=== PATIENT | female | born 1960 | race Caucasian/White ===

== ENCOUNTER 2023-07-29 10:55 | Inpatient (IN) ==
--- NOTE | 2023-07-29 11:20 | XRay Report ---
XR chest 1V portable HISTORY: weakness COMPARISON: None. FINDINGS: There are low lung volumes. No pneumothorax. No pleural effusions. The cardiac silhouette i s mildly enlarged. No evidence for pulmonary edema. Left basilar densities favor subsegmental atelect asis or scarring. Otherwise, no focal lung consolidations to suggest. No evidence for pulmonary edema . No acute fractures identified. IMPRESSION: Mild cardiomegaly. Otherwise, no acute process within the chest. ACT 112: Negative or not required by law. Electronically signed by: Giuliano Loera M.D. 07/29/2023 11:18 AM
--- NOTE | 2023-07-29 11:25 | Emergency Department Note ---
Impression & Plan Weakness, Non-ST elevation IN (NSTEMI), Hyperglycemia, Hypertension ED Provider Note HISTORY OF PRESENT ILLNESS: Patient is a 63-year-old female presenting with left-sided headache and weakness. Patient reports that she woke up today and had a left-sided headache. Reports that she felt very weak and unsteady. Denies any changes in vision. Denies any numbness or tingling or weakness in her extremities. She reports that she was on balance this morning and fell, landing on her buttocks. Denies any low back pain or tailbone pain. She denies any recent fevers. Denies any chest pain or shortness of breath. Denies any nausea or vomiting. Denies any recent sick contact exposures. ROS: as above PHYSICAL EXAM: Constitutional: Patient appears in no acute distress. HENT: Head: Normocephalic and atraumatic. Eyes: EOMI, PERRL Mouth/Throat: Mucous membranes moist. Neck: Trachea midline. Neck supple. Cardiovascular: RRR, No murmurs, rubs or gallops. Intact distal pulses. Pulmonary/Chest: No respiratory distress. Breath sounds clear and equal bilaterally. No wheezes or rales. Abdominal: Abdomen soft, no tenderness, rebound or guarding. Musculoskeletal: No edema, tenderness or deformity noted. Skin: Warm and dry. No rash, erythema, pallor or cyanosis Psychiatric: Appropriate mood and affect for situation. Neurological: Alert and keenly responsive. CN II-XII grossly intact, moving all extremities equally and fully. MDM: - Vitals signs showed hypertension. - History obtained via patient. Patient presents with left-sided headache and weakness. Patient reports she woke up today and had a left-sided headache. She reports she felt very weak and unsteady. She denies any changes in vision. Denies any head injuries. Reports she fell this morning but landed on her buttocks. Denies striking her head. Reports no chest pain or shortness of breath. - Chronic conditions affecting care: HTN; DM-2 - Differential diagnoses include, but are not limited to: ACS; dysrhythmia; electrolyte abnormality; UTI; pneumonia; CVA; intracranial hemorrhage - Order placed for continuous cardiac monitoring. At this time, monitor showed rate of 70 bpm with normal sinus rhythm, per my interpretation. - External medical records reviewed. - EKG interpreted by myself showed normal sinus rhythm. Rate 69 bpm. QT 422. No acute ischemic changes. - Laboratory workup interpreted by myself showed slight leukocytosis (WBC 12.29); pseudohyponatremia (glucose 130 - but WNL when corrected for hyperglycemia); elevated creatinine (Cr 1.29 - unknown baseline in our system); hyperglycemia (glucose 574); elevated troponin (96.8); normal TSH - Viral respiratory panel positive for coronavirus type 229E - CXR negative for pneumonia, per my interpretation. - CT head wo contrast negative for acute pathology - VBG shows slight acidosis (pH 7.34) - Patient given 1g IV tylenol on arrival to the ER and 10 mg of IV hydralazine for blood pressure control. Patient's systolic blood pressure minimally improved. She was given 1L NS and 5 units IV insulin for hyperglycemia. Repeat FSBG still >400. Given an additional 10 units IV insulin. Pressures still elevated and given an additional 10 mg of IV hydralazine. - Discussion was had with pet care associate about patient's case and need for admission - Hospitalist consulted for admission - [facility] ASSESSMENT AND PLAN: Diagnosis: weakness; NSTEMI; hypertension; hyperglycemia Plan: admit Past Med/Surg History Social History Smoking Status: Unknown if ever smoked Preferred Language: Divehi Feels Safe at Home: Yes Gender Identity: Female Home Meds Home Medications Medication Instructions Recorded Confirmed Levemir FlexPen 48 unit AMPM 07/29/23 07/29/23 Trulicity See Rx Instructions .Route .COMPLEX 07/29/23 07/29/23 amlodipine 10 mg tablet 10 mg PO DAILY 07/29/23 07/29/23 aspirin 325 mg tablet 325 mg PO DAILY 07/29/23 07/29/23 escitalopram oxalate 20 mg tablet 20 mg PO DAILY 07/29/23 07/29/23 hydralazine 100 mg tablet 100 mg PO BID 07/29/23 07/29/23 lisinopril 2.5 mg tablet 2.5 mg PO DAILY 07/29/23 07/29/23 metformin 500 mg tablet 500 mg PO BID 07/29/23 07/29/23 metoprolol succinate 100 mg 100 mg PO QAM 07/29/23 07/29/23 tablet,extended release 24 hr rosuvastatin 10 mg tablet 10 mg PO DAILY 07/29/23 07/29/23 sildenafil (pulm.hypertension) 20 20 mg PO TID 07/29/23 07/29/23 mg tablet spironolactone 25 mg tablet 25 mg PO DAILY 07/29/23 07/29/23 torsemide 20 mg tablet 20 mg PO DAILY 07/29/23 07/29/23 Results & Data (ED) Vital Signs Vital Signs - 24 hr 07/29/23 10:30 07/29/23 10:30 07/29/23 10:59 Temperature 36.7 C Temperature Source Oral Pulse Rate 68 Pulse Rate [Apical] Respiratory Rate 18 Respiratory Effort / Characteristics Non-Labored Respiratory Depth Normal Blood Pressure 226/94 H Blood Pressure [Left Arm] Blood Pressure Mean 138 Blood Pressure Mean [Left Arm] Pulse Oximetry 91 92 92 Oxygen Delivery Method Room Air Room Air Room Air Sepsis Recent Fever Within 48 Hours No Sepsis New/Unexplained Change in Mental Status No Sepsis Action Taken by Nursing No Action Required 07/29/23 12:28 Temperature Temperature Source Pulse Rate Pulse Rate [Apical] 69 Respiratory Rate 15 Respiratory Effort / Characteristics Respiratory Depth Blood Pressure Blood Pressure [Left Arm] 209/90 H Blood Pressure Mean Blood Pressure Mean [Left Arm] 129 Pulse Oximetry 93 Oxygen Delivery Method Room Air Sepsis Recent Fever Within 48 Hours Sepsis New/Unexplained Change in Mental Status Sepsis Action Taken by Nursing Laboratory Data 07/29/23 11:30 07/29/23 11:30 Lab Results 07/29/23 07/29/23 07/29/23 Range/Units 11:30 12:00 14:07 WBC 12.29 H (4.8-10.8) K/ul RBC 5.39 (4.20-5.40) M/uL Hgb 14.5 (12.0-16.0) g/dl Hct 43.6 (37.0-47.0) % MCV 80.9 (80.0-100.0) fL MCH 26.9 (25.0-34.0) pg MCHC 33.3 (32.0-36.0) g/dL RDW Std Deviation 37.5 (36.4-46.3) fL RDW Coeff of Sven 13.0 (11.5-14.5) % Plt Count 341 (130-400) K/uL MPV 9.8 (9.4-12.4) fL Immature Gran % (Auto) 0.7 % Neut % (Auto) 83.8 % Lymph % (Auto) 10.1 % [place] % (Auto) 3.9 % Eos % (Auto) 1.0 % Baso % (Auto) 0.5 % Neut # (Auto) 10.31 H (1.40-6.50) K/uL Lymph # (Auto) 1.24 (1.20-3.40) K/uL [place] # (Auto) 0.48 (0.11-0.59) K/uL Eos # (Auto) 0.12 (0.00-0.50) K/uL Baso # (Auto) 0.06 (0.00-0.20) K/uL Immature Gran # (Auto) 0.08 (0.01-0.20) K/uL VBG pH 7.34 L (7.36-7.41) VBG pCO2 50 (38-50) mmHg VBG pO2 30 mmHg VBG HCO3 27 mmol/L VBG O2 Saturation < 60.0 % VBG Base Excess 0.5 mEq/L Sodium 130 L (136-145) mmol/L Potassium 4.5 (3.5-5.1) mmol/L Chloride 96 L (98-107) mmol/L Carbon Dioxide 24 (21-32) mmol/L Anion Gap 10 (3-11) BUN 30 H (6-23) mg/dl Creatinine 1.29 H (0.6-1.2) mg/dl Est Cr Clr Drug Dosing 50.9 ml/min Est GFR ( Amer) 50.3 ml/min Est GFR (Non-Af Amer) 43.4 ml/min BUN/Creatinine Ratio 23.3 H (10-20) Glucose 574 H* (70-99(Fasting)) mg/dl POC Glucose 471 H* (70-99) mg/dl Lactate 1.5 (0.4-2.0) mmol/L Calcium 9.5 (8.6-10.3) mg/dl Magnesium 2.3 (1.7-2.4) mg/dl Total Bilirubin 0.5 (0.2-1.0) mg/dl AST 14 (13-39) U/L ALT 15 (7-52) U/L Alkaline Phosphatase 120 H (34-104) U/L Troponin I High Sens 96.8 H* (0-14) pg/ml Total Protein 7.6 (6.0-8.3) gm/dl Albumin 3.3 L (3.4-5.0) gm/dl Globulin 4.3 H (2.5-4.0) gm/dl Albumin/Globulin Ratio 0.8 L (0.9-2) TSH 2.222 (0.300-4.500) uIu/ml Adenovirus (PCR) Not Detected (NotDetected) B. pertussis DNA (PCR) Not Detected (NotDetected) B.parapertussis DNA PCR Not Detected (NotDetected) C. pneumoniae DNA (PCR) Not Detected (NotDetected) Coronavirus OC43 (PCR) Not Detected (NotDetected) Coronavirus HKU1 (PCR) Not Detected (NotDetected) Coronavirus 229E (PCR) DETECTED A (NotDetected) SARS-CoV-2 (PCR) Not Detected (NotDetected) Coronavirus NL63 (PCR) Not Detected (NotDetected) Human Metapneumovir PCR Not Detected (NotDetected) Influenza Type A (PCR) Not Detected (NotDetected) Influenza Type B (PCR) Not Detected (NotDetected) M. pneumoniae (PCR) Not Detected (NotDetected) Parainfluenza 1 (PCR) Not Detected (NotDetected) Parainfluenza 2 (PCR) Not Detected (NotDetected) Parainfluenza 3 (PCR) Not Detected (NotDetected) Parainfluenza 4 (PCR) Not Detected (NotDetected) RSV (PCR) Not Detected (NotDetected) Entero/Rhino (PCR) Not Detected (NotDetected) Administered Medications Discontinued Medications Hydralazine HCl (Hydralazine Hcl 20 Mg/Ml Vial) 10 mg IV NOW STA Stop: 07/29/23 12:24 Last Admin: 07/29/23 12:29 Dose: 10 mg Documented By: ML Hydralazine HCl (Hydralazine Hcl 20 Mg/Ml Vial) 10 mg IV NOW STA Stop: 07/29/23 14:38 Last Admin: 07/29/23 14:43 Dose: 10 mg Documented By: MISA Acetaminophen (Ofirmev) 1,000 mg in 100 mls @ 400 mls/hr IV NOW STA Stop: 07/29/23 11:39 Last Infusion: 07/29/23 12:00 Dose: Infused Documented By: Admin: 07/29/23 11:42 Dose: 400 mls/hr Documented By: MISA Sodium Chloride (Nss) 1,000 mls @ 999 mls/hr IV .Q1H1M ONE Stop: 07/29/23 13:28 Last Admin: 07/29/23 12:32 Dose: 999 mls/hr Documented By: LINH Insulin Human Regular (Novolin-R Insulin Per Unit Charge) 5 units IV NOW STA Stop: 07/29/23 12:29 Last Admin: 07/29/23 12:36 Dose: 5 units Documented By: LINH Co-signed By: FRANK Insulin Human Regular (Novolin-R Insulin Per Unit Charge) 10 units IV NOW STA Stop: 07/29/23 14:10 Last Admin: 07/29/23 14:19 Dose: 10 units Documented By: MISA Co-signed By: LINH Imaging Data Radiologist's Impression: Chest X-Ray 07/29/23 10:59 XR chest 1V portable HISTORY: weakness COMPARISON: None. FINDINGS: There are low lung volumes. No pneumothorax. No pleural effusions. The cardiac silhouette is mildly enlarged. No evidence for pulmonary edema. Left basilar densities favor subsegmental atelectasis or scarring. Otherwise, no focal lung consolidations to suggest. No evidence for pulmonary edema. No acute fractures identified. IMPRESSION: Mild cardiomegaly. Otherwise, no acute process within the chest. ACT 112: Negative or not required by law. Electronically signed by: Giuliano Loera M.D. 07/29/2023 11:[address] 07/29/23 11:[address] DOSE: 625.8 mGy.cm HISTORY: L sided headache; weakness TECHNIQUE: Multiaxial CT images of the head were performed without the use of intravenous contrast. Automated exposure control was utilized for this study. A dose lowering technique was utilized adhering to the principles of ALARA. Comparison: None. Findings: Mild mucosal thickening within the ethmoid air cells and left maxillary sinus. Trace fluid level within the right maxillary sinus. The mastoid air cells are clear. The calvarium and skull base are intact. The ventricles and sulci are within normal limits. There is no mass, hematoma, midline shift, or acute infarct. Impression: No acute intracranial abnormality. ACT 112: Negative or not required by law. Electronically signed by: Giuliano Loera M.D. 07/29/2023 1:04 PM Discharge Plan Visit Data Chief Complaint: Weakness ED Provider: Susan Arce Discharge Problem: Weakness, Non-ST elevation IN (NSTEMI), Hyperglycemia, Hypertension Forms Stand Alone Forms: My [facility] Prescriptions Prescriptions: No Action metformin 500 mg Tablet 500 mg PO BID torsemide 20 mg Tablet 20 mg PO DAILY aspirin 325 mg Tablet 325 mg PO DAILY metoprolol succinate 100 mg Tablet Extended Release 24 Hr 100 mg PO QAM spironolactone 25 mg Tablet 25 mg PO DAILY amlodipine 10 mg Tablet 10 mg PO DAILY hydralazine 100 mg Tablet 100 mg PO BID lisinopril 2.5 mg tablet 2.5 mg PO DAILY escitalopram oxalate 20 mg Tablet 20 mg PO DAILY rosuvastatin 10 mg Tablet 10 mg PO DAILY sildenafil (pulm.hypertension) 20 mg Tablet 20 mg PO TID Levemir FlexPen 48 unit AMPM Rx Instructions: per son she does 48 units bid. depending on her sugar Trulicity See Rx Instructions .ROUTE .COMPLEX Rx Instructions: unsure of dose; weekly on sundays Referrals Referrals: PCP,NO [Primary Care Provider] -
[2023-07-29] MEDS: ACETAMINOPHEN 1,000 MG/100 ML VIAL IV STA ×2 (11:42→18:36)
[2023-07-29 11:43] LABS: Base Excess VBG 0.5 mEq/L; HCO3 VBG 27 mmol/L; Oxygen Saturation VBG < 60.0 %; PCO2 VBG 50 mmHg (38-50); PO2 VBG 30 mmHg; pH VBG 7.34 (7.36-7.41)
[2023-07-29 11:48] LABS: Basophils # (auto) 0.06 K/uL (0.00-0.20); Basophils % (auto) 0.5 %; Eosinophils # (auto) 0.12 K/uL (0.00-0.50); Hematocrit (blood only) 43.6 % (37.0-47.0); Hemoglobin 14.5 g/dl (12.0-16.0); Immature Granulocytes # (auto) 0.08 K/uL (0.01-0.20); Immature Granulocytes % (auto) 0.7 %; Lymphocytes # (auto) 1.24 K/uL (1.20-3.40); Lymphocytes % (auto) 10.1 %; Mean Corpuscular Hemoglobin 26.9 pg (25.0-34.0); Mean Corpuscular Hgb Conc 33.3 g/dL (32.0-36.0); Mean Corpuscular Volume 80.9 fL (80.0-100.0); Mean Platelet Volume 9.8 fL (9.4-12.4); Monocytes # (auto) 0.48 K/uL (0.11-0.59); Monocytes % (auto) 3.9 %; Neutrophils # (auto) 10.31 K/uL (1.40-6.50); Neutrophils % (auto) 83.8 %; Platelet Count 341 K/uL (130-400); RDW Standard Deviation 37.5 fL (36.4-46.3); Red Blood Count 5.39 M/uL (4.20-5.40); White Blood Count 12.29 K/ul (4.8-10.8)
[2023-07-29 12:26] LABS: Albumin Globulin Ratio 0.8 (0.9-2); Albumin Level 3.3 gm/dl (3.4-5.0); BUN Creatinine Ratio 23.3 (10-20); Bilirubin,Total 0.5 mg/dl (0.2-1.0); Calcium 9.5 mg/dl (8.6-10.3); Creatinine Clr Calc Pharmacy 50.9 ml/min; Est GFR (African American) 50.3 ml/min; Est GFR (Non-African American) 43.4 ml/min; Globulin 4.3 gm/dl (2.5-4.0); Magnesium 2.3 mg/dl (1.7-2.4); Potassium 4.5 mmol/L (3.5-5.1); Total Protein 7.6 gm/dl (6.0-8.3); Troponin I High Sensitivity 96.8 pg/ml (0-14)
[2023-07-29] MEDS: hydrALAZINE HCL 20 MG/ML VIAL IV STA ×2 (12:29→14:43)
[2023-07-29] MEDS: SODIUM CHLORIDE 0.9% 1,000 ML IV ONE (12:32)
[2023-07-29] MEDS: NovoLIN-R INSULIN PER UNIT CHARGE IV STA ×2 (12:36→14:19)
[2023-07-29 12:48] LABS: Thyroid Stimulating Hormone 2.222 uIu/ml (0.300-4.500)
[2023-07-29 13:02] LABS: Adenovirus PCR Not Detected (NotDetected); Bordetella parapertussis PCR Not Detected (NotDetected); Bordetella pertussis PCR Not Detected (NotDetected); Chlamydia pneumoniae PCR Not Detected (NotDetected); Coronavirus 229E PCR DETECTED (NotDetected); Coronavirus CoV-2 (COVID19)PCR Not Detected (NotDetected); Coronavirus HKU1 PCR Not Detected (NotDetected); Coronavirus NL63 PCR Not Detected (NotDetected); Coronavirus OC43PCR Not Detected (NotDetected); Human Metapneumovirus PCR Not Detected (NotDetected); Influenza A PCR Not Detected (NotDetected); Influenza B PCR Not Detected (NotDetected); Mycoplasma pneumoniae PCR Not Detected (NotDetected); Parainfluenza Virus 1 PCR Not Detected (NotDetected); Parainfluenza Virus 2 PCR Not Detected (NotDetected); Parainfluenza Virus 3 PCR Not Detected (NotDetected); Parainfluenza Virus 4 PCR Not Detected (NotDetected); Respiratory Syncytial VirusPCR Not Detected (NotDetected); Rhinovirus/Enterovirus PCR Not Detected (NotDetected)
--- NOTE | 2023-07-29 13:05 | CT Scan Report ---
HEAD CT NONCONTRAST CT DOSE: 625.8 mGy.cm HISTORY: L sided headache; weakness TECHNIQUE: Multiaxial CT images of the head were performed without the use of intravenous contrast. A utomated exposure control was utilized for this study. A dose lowering technique was utilized adheri ng to the principles of ALARA. Comparison: None. Findings: Mild mucosal thickening within the ethmoid air cells and left maxillary sinus. Trace fluid level within the right maxillary sinus. The mastoid air cells are clear. The calvarium and skull base are intact. The ventricles and sulci are within normal limits. There is no mass, hematoma, midline s hift, or acute infarct. Impression: No acute intracranial abnormality. ACT 112: Negative or not required by law. Electronically signed by: Giuliano Loera M.D. 07/29/2023 1:04 PM
--- NOTE | 2023-07-29 15:04 | History & Physical Report ---
Date of Service July 29, 2023 Assessment & Plan (1) CVA (cerebral vascular accident): (2) Weakness: (3) Stroke-like symptoms: Plan: Patient is 63-year-old female with PMH uncontrolled DM II, HTN, dyslipidemia, CAD, H/O WA s/p stents, hypothyroidism, RADHA, nocturnal hypoxia, pulmonary hypertension, chronic diastolic heart failure, depression, anxiety, CKD III-IV presented to ER with c/o weakness and fall this morning. Denies hitting head, dizziness, CP, SOB. Patient with reported left sided headache since this morning that had slightly improved after Tylenol in ER and without focal deficits upon initial exam. Had also reported left sided facial paresthesias yesterday. In ER patient found to be hypertensive with BP: 226/94, and hyperglycemic with glucose of 574. She was given Tylenol, two doses of hydralazine 10mg IV with repeat BP 166/69. Given total 15 units of insulin with repeat BSG 365. Initial CT scan head without acute findings. Initial exam upon admission patient without focal deficits and normal speech. Weakness and SELF thought possible to hypertensive encephalopathy, hyperglycemia DDX: TIA, CVA, atypical migraine, hypertensive encephalopathy Alerted by ER nurse at 17:03 that patient having slurred speech and word finding difficulties. repeat BP: 199/110. BSG high 300's. Some reported decreased sensation left side of face, +slight right sided mouth drooping (appears similar to initial presentation) +expressive aphasia with some slurred speech. Alert and oriented x 3. EOMs intact. No nystagmus, Hearing grossly intact, soft palate elevates symmetrically, shoulder shrug intact, tongue is midline, normal movement, no fasciculations, strength 5/5 bilateral upper extremities, chronically unable to lift legs, pedal pushes and pulls intact bilaterally. Stroke alert called Repeat CT head No acute intracranial hemorrhage, no evidence of acute territorial infarction or other acute intracranial disease process. Obtain MRI brain: Tele to monitor for arrhythmias EKG in am Lipids and A1c in am U/S carotids Echo with bubble study Aspiration precautions PT/OT consult Change rosuvastatin to atorvastatin 40mg Continue aspirin labetalol SBP>220 or DBP>120 in 1st 24 hrs to allow permissive hypertension Neurology consult MRI Brain: Small acute infarcts in both occipital lobes. Consider embolic infarcts. 20:30 updated patient and patients son, and [id number] who are at bedside of MRI brain findings and updated treatment plan. Currently patient without any expressive aphasia and no slurred speech and is back to baseline. Further history obtained from Son who states that patient told him this morning she had trouble thinking and saying her prayers last night and that this morning around 10:00 son noticed patient had expressive aphasia that resolved upon time EMS arrived. (4) Hypertensive urgency: Plan: History medication noncompliance In ER patient found to be hypertensive with BP: 226/94, and hyperglycemic with glucose of 574. She was given Tylenol, two doses of hydralazine 10mg IV with repeat BP 166/69 Nitropaste applied. Initially home medications of amlodipine, lisinopril, metoprolol succinate given Patient then developed expressive aphasia and stroke like symptoms Will remove nitropaste Labetalol prn Now holding home BP meds (5) Hyperglycemia: (6) Diabetes mellitus, type II: Plan: History uncontrolled diabetes. History of med occasion noncompliance A1c: 13.3 on 01/17/2023 In ER glucose of 574. Given total 15 units of insulin with repeat BSG 365.VBG: pH: 7.34, pCO2: 50, HCO3 27. Corrected sodium 138 for glucose 574, osmolality: 319 Likely HHS Start IV insulin Pharmacy glycemic consult Serial BMP to monitor electrolytes A1c pending (7) Elevated troponin: (8) Non-ST elevation WA (NSTEMI): (9) CAD (coronary artery disease): Plan: Reported history of CAD, WA s/p stents ?in 2019 in [place], [place] Troponin 96.8--> 100. EKG sinus rhythm without acute ST changes noted Denies chest pain, shortness of breath Possible demand ischemia from hypertension Trend troponin Echo EKG a.m. Continue aspirin, metoprolol succinate, rosuvastatin Cardiology consult (10) Foot ulcer, left: Plan: Diabetic foot ulcer left heel Rocephin, doxycycline Wound nurse consult (11) Recent URI: Plan: Recent URI symptoms with reported improvement Biofire respiratory panel +coronavirus CXR: No acute infiltrate 92% on room air ? Chronic respiratory failure per patient's [id number]. She reports previously patient was prescribed 2 L oxygen to use continuously however patient previously noncompliant so oxygen returned Monitor O2 sats May need to consider two step prior to discharge (12) CKD (chronic kidney disease), stage III: Plan: CKD III-IV per outpatient records BUN: 30, Cr: 1.29. Cr: 1.0 on 03/16/2023, 1.9 on 01/17/2023 Monitor renal functions, avoid nephrotoxic agents when possible (13) Chronic diastolic CHF (congestive heart failure): Plan: Currently appears euvolemic Hold home torsemide, spironolactone and reevaluate tomorrow (14) Pulmonary hypertension: Plan: On sildenafil With having nitropaste on today will plan to resume tomorrow (15) Anxiety and depression: Plan: Patient with current flat affect. Denies suicidal ideations Medication noncompliance Continue escitalopram May need to consider psychiatry referral (16) HLD (hyperlipidemia): Plan: Continue rosuvastatin (17) Obesity, morbid, BMI 40.0-49.9: Plan: BMI: 47 Lifestyle modifications should be addressed when appropriate during hospital c ourse (18) Hypothyroidism: Plan: Reported history hypothyroidism Not on medications TSH: 2.2 DVT Prophylaxis SCDs DNR/DNI as per discussion with pt Previously seen by Dr Webb, as was getting established for local care Pt was seen and care coordinated with Dr Fry. See addendum manager social responsibility to assist. Patient's family requesting more assistance with care for patient at home. I spent a total of 90 minutes reviewing notes, outpatient records, labs, medication, coordinating, documenting and providing care for this patient excluding time spent in the performance of separately billed services. History of Present Illness Chief Complaint: weakness Primary Care Provider: NO PCP Patient is 63-year-old female with PMH uncontrolled DM II, HTN, dyslipidemia, CAD, H/O WA s/p stents, hypothyroidism, RADHA, nocturnal hypoxia, pulmonary hypertension, chronic diastolic heart failure, depression, anxiety, CKD III-IV presented to ER with c/o weakness. History obtained from patient, daughter in law and outpatient chart review. Patient states today was feeling weak and fell onto buttocks. States her son was home at time and assisted in getting patient up. Son was concerned patient seemed to have trouble finding her words and EMS was called. Patient denies dizziness, CP, SOB, LOC, or hitting head. States last night she had some tingling to left side of face. Walks with walker at baseline. Daughter in law states in ER patient seems back to her baseline. Patient complaining of left sided headache today and she thinks she awoke with SELF. Denies any dizziness. States has chronic poor vision and denies any worsening vision changes. States has chronic neuropathy of bilateral feet and denies any increased paresthesias. She admits medication noncompliance and hasn't been taking her medications. Not been using insulin regularly as has trouble seeing needle to self inject. Reports last week with rhinorrhea, cough symptoms which have been improving. Patient reports intermittent nausea without vomiting but denies nausea today. Intermittent constipation also. She also reports intermittent right sided abdominal discomfort but denies any abdominal pain today. Denies history stroke. Patient and family admit patient has some underlying depression. Patient states she feels she doesn't have a purpose anymore since she can't work. Denies fever/chills, diarrhea, diaphoresis, syncope, neck pain, CP, SOB, orthopnea, palpitations, hemoptysis, otalgia, rhinorrhea, increased extremity edema, rashes, urinary symptoms. In ER patient found to be hypertensive with BP: 226/94, and hyperglycemic with glucose of 574. She was given Tylenol, two doses of hydralazine 10mg IV with repeat BP 166/69. Given total 15 units of insulin with repeat BSG 365. CT scan head without acute findings. Biofire respiratory panel +coronavirus. Patient with reported left sided headache that had slightly improved and without focal deficits. Allergies Allergy/AdvReac Type Severity Reaction Status Date / Time No Known Allergies Allergy Unverified 07/29/23 15:45 Home Medications Medication Instructions Recorded Confirmed Type Trulicity See Rx Instructions .Route .COMPLEX 07/29/23 07/29/23 History amlodipine 10 mg tablet 10 mg PO DAILY 07/29/23 07/29/23 History aspirin 325 mg tablet 325 mg PO DAILY 07/29/23 07/29/23 History escitalopram oxalate 20 mg tablet 20 mg PO DAILY 07/29/23 07/29/23 History hydralazine 100 mg tablet 100 mg PO BID 07/29/23 07/29/23 History insulin detemir U-100 100 unit/mL 45 unit subcut BID 07/29/23 07/29/23 History (3 mL) subcutaneous pen (Levemir FlexPen) lisinopril 2.5 mg tablet 2.5 mg PO DAILY 07/29/23 07/29/23 History metformin 500 mg tablet 500 mg PO BID 07/29/23 07/29/23 History metoprolol succinate 100 mg 100 mg PO QAM 07/29/23 07/29/23 History tablet,extended release 24 hr rosuvastatin 10 mg tablet 10 mg PO DAILY 07/29/23 07/29/23 History sildenafil (pulm.hypertension) 20 20 mg PO TID 07/29/23 07/29/23 History mg tablet spironolactone 25 mg tablet 25 mg PO DAILY 07/29/23 07/29/23 History torsemide 20 mg tablet 20 mg PO DAILY 07/29/23 07/29/23 History Past Med/Surg History Medical History (Updated 07/29/23 @ 20:04 by Enedelia Mcgee PA-C) Obesity, morbid, BMI 40.0-49.9 CKD (chronic kidney disease), stage III Chronic diastolic CHF (congestive heart failure) Anxiety and depression Pulmonary hypertension Hypothyroidism CAD (coronary artery disease) Diabetes mellitus, type II HLD (hyperlipidemia) Hypertension Surgical History History of cardiac cath s/p stents Social History Smoking Status: Unknown if ever smoked Hx Alcohol Use: No Hx Substance Use: No Preferred Language: [place] Feels Safe at Home: Yes Gender Identity: Female Review of Systems Review of Systems: All systems reviewed & are unremarkable except as noted in HPI & below Physical Exam Physical Exam: General: no acute distress, obese Head: normocephalic, atraumatic Eyes: PERRL, EOM's intact, +poor vision and reports can see outlines/shadows of people and objects. not wearing corrective lenses currently, conjunctiva non- injected, anicteric ENT: normal inspection external ears, nose, mucous membranes moist Neck: supple, trachea midline Lungs: clear, no respiratory distress, no wheezing/rhonchi/rales CV: RRR, no murmur Abd: normal BS, soft, non-tender Ext: no cyanosis, no calf tenderness, BLE large bilaterally without noted pitti ng edema Neuro: A&O x 3, +slight right sided downturning of mouth (family reports is chronic), no other focal deficits noted, +flat affect Skin: warm, dry. Left foot: +ulcer heel with odor and approximately 2cm surrounding erythema, dried drainage noted on bandage but no active discharge noted Results & Data Results & Data Vital Signs (Past 12 Hours) Vital Signs Temp Pulse Pulse Resp BP BP Pulse Ox 07/29/23 12:28 69 15 209/90 H 93 07/29/23 10:59 92 07/29/23 10:30 92 07/29/23 10:30 36.7 C 68 18 226/94 H 91 O2 Del Method 07/29/23 12:28 Room Air 07/29/23 10:59 Room Air 07/29/23 10:30 Room Air 07/29/23 10:30 Room Air Laboratory Results Short CBC 07/29/23 Range/Units 11:30 WBC 12.29 H (4.8-10.8) K/ul Hgb 14.5 (12.0-16.0) g/dl Hct 43.6 (37.0-47.0) % Plt Count 341 (130-400) K/uL BMP 07/29/23 11:30 Sodium 130 L Potassium 4.5 Chloride 96 L Carbon Dioxide 24 BUN 30 H Creatinine 1.29 H Glucose 574 H* Calcium 9.5 Liver Function 07/29/23 Range/Units 11:30 Total Bilirubin 0.5 (0.2-1.0) mg/dl AST 14 (13-39) U/L ALT 15 (7-52) U/L Alkaline Phosphatase 120 H (34-104) U/L Albumin 3.3 L (3.4-5.0) gm/dl Diagnostic Findings Chest X-Ray 07/29/23 10:59 XR chest 1V portable HISTORY: weakness COMPARISON: None. FINDINGS: There are low lung volumes. No pneumothorax. No pleural effusions. The cardiac silhouette is mildly enlarged. No evidence for pulmonary edema. Left basilar densities favor subsegmental atelectasis or scarring. Otherwise, no focal lung consolidations to suggest. No evidence for pulmonary edema. No acute fractures identified. IMPRESSION: Mild cardiomegaly. Otherwise, no acute process within the chest. ACT 112: Negative or not required by law. Electronically signed by: Giuliano Loera M.D. 07/29/2023 11:[address] 07/29/23 11:[address] DOSE: 625.8 mGy.cm HISTORY: L sided headache; weakness TECHNIQUE: Multiaxial CT images of the head were performed without the use of intravenous contrast. Automated exposure control was utilized for this study. A dose lowering technique was utilized adhering to the principles of ALARA. Comparison: None. Findings: Mild mucosal thickening within the ethmoid air cells and left maxillary sinus. Trace fluid level within the right maxillary sinus. The mastoid air cells are clear. The calvarium and skull base are intact. The ventricles and sulci are within normal limits. There is no mass, hematoma, midline shift, or acute infarct. Impression: No acute intracranial abnormality. ACT 112: Negative or not required by law. Electronically signed by: Giuliano Loera M.D. 07/29/2023 1:04 PM Foot X-Ray 07/29/23 16:36 XR foot LT min 3V routine CLINICAL HISTORY: foot wound left TECHNIQUE: 3 views of the left foot were obtained. Comparison: None available at the time of this dictation. FINDINGS: No fractures are present. Degenerative changes are seen. Vascular calcifications are noted. IMPRESSION: Degenerative changes without evidence of acute fracture. ACT 112: Negative or not required by law. Electronically signed by: Stephane Leyva M.D. 07/29/2023 4:[address] 07/29/23 17:35 CT head/brain wo con CLINICAL HISTORY: r/o stroke Technique: Contiguous axial CT images of the head were acquired from the base of the skull to the vertex without intravenous contrast administration. Images were viewed in brain, subdural and bone windows. Automated dose lowering techniques and/or adjustment according to patient size were utilized for this exam. Comparison: Comparison is made to CT head 07/29/2023 Findings: The ventricles, basal cisterns, and cerebral sulci are normal. There is no acute intracranial hemorrhage or evidence of acute territorial infarction. Neither mass effect, shift of the midline structures, nor abnormal extra-axial fluid collections are shown. Imaged portions of the paranasal sinuses and mastoid air cells are clear. The orbits appear normal. There are no acute fractures of the calvaria or scalp swelling. Impression: No acute intracranial hemorrhage, no evidence of acute territorial infarction or other acute intracranial disease process. ACT 112: Negative or not required by law. Electronically signed by: Stephane Leyva M.D. 07/29/2023 6:08 PM ECG Additional Comments: rate 69, sinus rhythm per my interpretation Supervising Physician Co-Signing Physician Notes Patient is a 63-year-old female with history of diabetes mellitus, CAD, hyp othyroidism, obstructive sleep apnea, pulmonary hypertension, diastolic heart failure and other medical problems presents with history of generalized weakness. Patient is poor historian. Most of the history is obtained from patient's family. Patient did have a fall secondary to weakness landing on her buttocks today. Patient was noted to have trouble finding words by her family and so brought to ED for further evaluation. Patient admits to have left facial numbness/tingling as today and developed left-sided headache. Reports chronic poor vision which is unchanged. She admits to be noncompliant with medications use and did not take her medications today. 1 week ago patient admits to have flulike symptoms which are improving. Please review HPI for complete details of presentation. While in ED, patient developed slurred speech, slow to respond and stroke alert was called. Simi neurology was involved. I personally reviewed blood work and imaging studies. Leukocytosis 12.29 K, sodium 130(corrected 138), chloride 96, creatinine 1.2, BUN 30, glucose 574, serum osmolality 319, alkaline phosphatase 120, troponin 96.8, normal TSH, urinalysis suggestive of possible UTI. BioFire positive for coronavirus. Chest x-ray showed mild cardiomegaly but otherwise no acute process. Left foot x-ray showed degenerative changes without acute fracture. MRI brain showed findings sugge stive of acute infarcts in both occipital lobes, possible embolic. Blood and urine cultures are pending. Wound cultures pending. KG showed normal sinus rhythm, left axis deviation, left ventricular hypertrophy, QTc 452. Patient is admitted for management of acute CVA. 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 Noncompliance with medications use. Will request stroke workup. Restart aspirin 325 mg daily. Increase statin to Lipitor 40 mg daily. Obtain echo, carotid ultrasound, PT OT, speech eval. Neurology consulted. Continue neurochecks. Monitor for any arrhythmias. Allow permissive hypertension. Check lipid panel, A1c. Hypertensive urgency likely situational. Resume home antihypertensives as able. Monitor BP closely. Uncontrolled diabetes mellitus, HHS. Started insulin per protocol. Monitor and replace electrolytes as needed. Continue IV fluids. Placement forms consulted. Possible UTI, left foot wound infection. Empirically started on antibiotics. NSTEMI likely type II WA secondary to hypertensive urgency. Obtain resting echo. Given significant comorbidities, cardiology consulted as well. Continue wound care. Empirically started on Rocephin for possible UTI. Coronavirus--supportive care. On exam patient is obese, no apparent distress, normocephalic atraumatic, EOMI, poor vision, clear to auscultation, normal breath sounds, S1-S2, no murmur,+ pitting edema, abdomen soft, nontender, normal bowel sounds, alert, awake, oriented, transient slurred speech, grossly moves all extremities. No significant facial droop, left foot ulcer with some discharge. I personally interviewed and examined at bedside. Patient's care is coordinated with Enedelia Gonzales. I have reviewed the advanced practitioner's documentation, and I agree with, and take responsibility for that plan of care. Please refer to the documentation above for details of patient's presentation and for discussion of other issues. I spent a total [id number] coordinating, documenting, and providing care for this patient excluding time spent in the performance of separately billed services.
[2023-07-29] MEDS: amLODIPine BESYLATE 5 MG TAB PO ONE (16:24)
[2023-07-29] MEDS: lisinopril 2.5 MG TAB PO ONE (16:24)
--- NOTE | 2023-07-29 16:58 | XRay Report ---
XR foot LT min 3V routine CLINICAL HISTORY: foot wound left TECHNIQUE: 3 views of the left foot were obtained. Comparison: None available at the time of this dictation. FINDINGS: No fractures are present. Degenerative changes are seen. Vascular calcifications are noted. IMPRESSION: Degenerative changes without evidence of acute fracture. ACT 112: Negative or not required by law. Electronically signed by: Stephane Leyva M.D. 07/29/2023 4:56 PM
[2023-07-29] MEDS: NITROGLYCERIN 2% OINTMENT 30GM TUBE EXT ONE (17:09)
[2023-07-29] MEDS ORDERED: HHS GOAL RANGE 250-350 mg/dl ONE ×2 (17:19→17:55)
[2023-07-29] MEDS ORDERED: STAT IV Infusion **Titration per Protocol STA ×2 (17:19→17:55)
[2023-07-29] MEDS ORDERED: NovoLIN-R BOLUS FROM BAG IV ONE (17:30)
[2023-07-29] MEDS: LABETALOL HCL IV 5 MG/ML 20ML IV STA (17:31)
[2023-07-29] MEDS ORDERED: ACETAMINOPHEN 325 MG TAB PO PRN (17:55)
[2023-07-29] MEDS ORDERED: ONDANSETRON INJ 2 MG/ML 2 ML VIAL IV PRN (17:55)
[2023-07-29] MEDS ORDERED: POLYETHYLENE (MIRALAX) 17 GM PACK PO PRN (17:55)
[2023-07-29] MEDS ORDERED: PLASMA-LYTE A 1,000 ML IV SCH (17:55)
[2023-07-29] MEDS ORDERED: PHARMACY GLYCEMIC MGMT CONSULT PRN (17:55)
[2023-07-29] MEDS ORDERED: PENDING 1/2NSS+20mEq KCL IVF SCH (17:55)
[2023-07-29] MEDS ORDERED: INSULIN REGULAR 250 UNITS in SODIUM CHLORIDE 0.9% 247.5 ML IV SCH (17:55)
[2023-07-29 17:56] LABS: HCO3 VBG 26 mmol/L; Oxygen Saturation VBG 79.6 %; PCO2 VBG 42 mmHg (38-50); PO2 VBG 46 mmHg
--- NOTE | 2023-07-29 18:11 | CT Scan Report ---
CT head/brain wo con CLINICAL HISTORY: r/o stroke Technique: Contiguous axial CT images of the head were acquired from the base of the skull to the lyla nikkie without intravenous contrast administration. Images were viewed in brain, subdural and bone [facility]. Automated dose lowering techniques and/or adjustment according to patient size were utilized for this exam. Comparison: Comparison is made to CT head 07/29/2023 Findings: The ventricles, basal cisterns, and cerebral sulci are normal. There is no acute intracranial hemorrh age or evidence of acute territorial infarction. Neither mass effect, shift of the midline structures , nor abnormal extra-axial fluid collections are shown. Imaged portions of the paranasal sinuses and mastoid air cells are clear. The orbits appear normal. There are no acute fractures of the calvaria or scalp swelling. Impression: No acute intracranial hemorrhage, no evidence of acute territorial infarction or other acute intracra nial disease process. ACT 112: Negative or not required by law. Electronically signed by: Stephane Leyva M.D. 07/29/2023 6:08 PM
[2023-07-29] MEDS ORDERED: PHARMACIST DISCHARGE MED REC CONSULT PRN ×2 (18:21→19:57)
[2023-07-29 18:24] LABS: Calcium 8.8 mg/dl (8.6-10.3); Est GFR (African American) 52.8 ml/min; Est GFR (Non-African American) 45.5 ml/min; Potassium 4.4 mmol/L (3.5-5.1)
[2023-07-29] MEDS: ONDANSETRON INJ 2 MG/ML 2 ML VIAL IV STA (18:36)
[2023-07-29] MEDS ORDERED: LABETALOL HCL IV 5 MG/ML 20ML IV PRN (18:47)
[2023-07-29] MEDS ORDERED: Nursing to Pharmacy Communication SCH (19:15)
[2023-07-29] MEDS: ACETAMINOPHEN 1000 MG/100 ML IV IV ONE (19:37)
--- NOTE | 2023-07-29 19:41 | Magnetic Resonance Report ---
Exam(s): MRI HEAD Without Contrast EXAM: MR Head Without Intravenous Contrast CLINICAL HISTORY: Reason for exam: r/o stroke. TECHNIQUE: Magnetic resonance images of the head/brain without intravenous contrast in multiple planes. COMPARISON: CT head 07/29/23 FINDINGS: There is a 7 mm focus of diffusion restriction in the periventricular white matter of the right occipital lobe (series 5, image 14). There is a 10 mm focus of diffusion restriction within the left occipital lobe (series 5, image 12). No additional foci of diffusion restriction are present. There is no evidence of acute intracranial hemorrhage. There is no mass-effect or midline shift. Parenchymal volume appears normal for age. There is no hydrocephalus. There is no significant white matter disease burden. There is mild mucosal thickening in the right frontal sinus and bilateral ethmoids. A small retention cyst is present in the sphenoid sinus. There is a mild effusion at the left mastoid tip. IMPRESSION: Small acute infarcts in both occipital lobes. Consider embolic infarcts. Communications: Call Doctor Stroke Electronically signed by: Keren Solano M.D. 07/29/23 19:40 PM
[2023-07-29] MEDS: INSULIN REGULAR 250 UNITS in SODIUM CHLORIDE 0.9% 247.5 ML IV SCH (19:51)
[2023-07-29] MEDS: ASPIRIN 300 MG SUPP PR ONE (19:59)
[2023-07-29] MEDS: NovoLIN-R BOLUS FROM BAG IV ONE (19:59)
[2023-07-29 20:09] LABS: Appearance Urine Cloudy (Clear); Bacteria Urine Automated 4+ (Negative); Bilirubin Urine Negative (Negative); Blood Urine 1+ (Negative); Color Urine Yellow; Epithelial Cell Urine Auto >30 /lpf (0-5); Glucose Urine UA 3+ (Negative); Ketones Urine 1+ (Negative); Leukocyte Esterase Urine Negative (Negative); Nitrite Urine Negative (Negative); Protein Urine 4+ (Negative); RBC Urine Automated 0-4 /hpf (0-4); Specific Gravity Urine 1.032 (1.000-1.030); Urobilinogen Urine Negative (Negative); pH Urine 5.5 (4.5-7.5)
[2023-07-29] MEDS: METOPROLOL SUCC 50MG EXT REL TAB PO STA (20:18)
[2023-07-29] MEDS ORDERED: hydrALAZINE TAB 50 MG TAB PO SCH (21:00)
[2023-07-29 21:37] LABS: Magnesium 2.1 mg/dl (1.7-2.4); Potassium 3.8 mmol/L (3.5-5.1)
[2023-07-29] MEDS: PLASMA-LYTE A 1,000 ML IV SCH (21:51)
[2023-07-29] MEDS: cefTRIAXone SODIUM 2,000 MG in DEXTROSE 5 % MINI-B 50 ML IV SCH (21:57)
[2023-07-29 22:03] LABS: BUN Creatinine Ratio 23.8 (10-20); Creatinine Clr Calc Pharmacy 50.5 ml/min; Est GFR (African American) 49.9 ml/min; Troponin I High Sensitivity 84.5 pg/ml (0-14)
[2023-07-29] MEDS: PENDING 1/2NSS+20mEq KCL IVF SCH (22:23)
[2023-07-29] MEDS: ENOXAPARIN INJ 40 MG/0.4 ML SYR SQ SCH (22:24)
[2023-07-29] MEDS: SODIUM CHLOR 0.45% + 20MEQ KCL 20 MEQ/1,000 ML BAG IV SCH (22:35)
[2023-07-29] MEDS: INSULIN ASPART PER UNIT CHARGE SC SCH (22:37)
[2023-07-29] MEDS: DOXYCYCLINE HYCLATE 100 MG in DEXTROSE 5% MINI-B 100 ML IV SCH (22:40)
[2023-07-29] MEDS: ATORVASTATIN 40 MG TAB PO ONE (22:40)
[2023-07-29] MEDS: POTASSIUM CHLORIDE CRTAB 20 MEQ TABCR PO STA (23:34)
[2023-07-30 01:12] LABS: BUN Creatinine Ratio 22.9 (10-20); Calcium 8.8 mg/dl (8.6-10.3); Creatinine Clr Calc Pharmacy 46.9 ml/min; Est GFR (African American) 45.6 ml/min; Est GFR (Non-African American) 39.3 ml/min; Magnesium 2.1 mg/dl (1.7-2.4); Phosphorus 2.7 mg/dl (2.5-4.9); Potassium 3.9 mmol/L (3.5-5.1)
[2023-07-30 05:59] LABS: Basophils # (auto) 0.06 K/uL (0.00-0.20); Basophils % (auto) 0.4 %; Eosinophils # (auto) 0.03 K/uL (0.00-0.50); Eosinophils % (auto) 0.2 %; Hematocrit (blood only) 34.6 % (37.0-47.0); Hemoglobin 11.5 g/dl (12.0-16.0); Immature Granulocytes # (auto) 0.05 K/uL (0.01-0.20); Immature Granulocytes % (auto) 0.4 %; Lymphocytes # (auto) 1.89 K/uL (1.20-3.40); Lymphocytes % (auto) 13.9 %; Mean Corpuscular Hgb Conc 33.2 g/dL (32.0-36.0); Mean Corpuscular Volume 81.2 fL (80.0-100.0); Mean Platelet Volume 9.6 fL (9.4-12.4); Monocytes # (auto) 1.03 K/uL (0.11-0.59); Monocytes % (auto) 7.6 %; Neutrophils # (auto) 10.56 K/uL (1.40-6.50); Neutrophils % (auto) 77.5 %; Platelet Count 291 K/uL (130-400); RDW Coefficient of Variation 13.3 % (11.5-14.5); RDW Standard Deviation 38.5 fL (36.4-46.3); Red Blood Count 4.26 M/uL (4.20-5.40); White Blood Count 13.62 K/ul (4.8-10.8)
--- NOTE | 2023-07-30 06:00 | Electrocardiogram Report ---
Test Reason : Blood Pressure : / mmHG Vent. Rate : 069 BPM Atrial Rate : 069 BPM P-R Int : 186 ms QRS Dur : 118 ms QT Int : 422 ms P-R-T Axes : 047 -34 028 degrees QTc Int : 452 ms Normal sinus rhythm Left axis deviation Left ventricular hypertrophy with QRS widening Abnormal ECG No previous ECGs available Confirmed by Trell Amaya ([id number]) on 07/30/2023 6:00:16 AM Referred By: Confirmed By:Trell Amaya
[2023-07-30 06:21] LABS: Albumin Globulin Ratio 0.8 (0.9-2); Albumin Level 2.6 gm/dl (3.4-5.0); BUN Creatinine Ratio 23.5 (10-20); Bilirubin,Total 0.3 mg/dl (0.2-1.0); Calcium 8.8 mg/dl (8.6-10.3); Chol HDL Ratio 5.2 (0-5); Creatinine Clr Calc Pharmacy 43.3 ml/min; Est GFR (African American) 47.2 ml/min; Est GFR (Non-African American) 40.7 ml/min; Globulin 3.1 gm/dl (2.5-4.0); Magnesium 2.1 mg/dl (1.7-2.4); Potassium 4.6 mmol/L (3.5-5.1); Total Protein 5.7 gm/dl (6.0-8.3)
[2023-07-30 06:58] LABS: Estimated Average Glucose 358 mg/dl; Hemoglobin A1C 14.1 % (4.5-5.6)
--- NOTE | 2023-07-30 08:54 | Ultrasound Report ---
CAROTID ARTERY ULTRASOUND CLINICAL HISTORY: stroke symptoms COMPARISON STUDY: None. TECHNIQUE: Real-time, grayscale, and color Doppler sonography of the carotid and vertebral arteries w as performed. Images were viewed in the transverse and longitudinal planes. FINDINGS: This exam is mildly compromised by suboptimal penetration. There is mild to moderate atherosclerotic plaque. Velocity measurements are listed below. COMMON CAROTID PEAK SYSTOLIC VELOCITY (CM/S): RIGHT 52 LEFT 97 ICA PEAK SYSTOLIC VELOCITY (CM/S): RIGHT 72 LEFT 115 Systolic ratios within the internal to common carotid arteries were normal. Antegrade flow is seen in the vertebral arteries. The external carotid arteries are patent. IMPRESSION: 1. Mild to moderate atherosclerotic plaque. No evidence for a hemodynamically significant stenosis. 2. Exam mildly compromised by suboptimal penetration. ACT 112: Negative or not required by law. Electronically signed by: Bruce Cai M.D. 07/30/2023 8:53 AM
[2023-07-30] MEDS ORDERED: SILDENAFIL CITRATE 20 MG TABLET PO SCH (09:00)
[2023-07-30] MEDS ORDERED: METOPROLOL SUCC 50MG EXT REL TAB PO SCH (09:00)
[2023-07-30] MEDS ORDERED: lisinopril 2.5 MG TAB PO SCH (09:00)
[2023-07-30] MEDS ORDERED: amLODIPine BESYLATE 5 MG TAB PO SCH (09:00)
[2023-07-30] MEDS ORDERED: ATORVASTATIN 40 MG TAB PO SCH (09:00)
[2023-07-30] MEDS ORDERED: hydrALAZINE TAB 50 MG TAB PO SCH (09:00)
[2023-07-30] MEDS ORDERED: ROSUVASTATIN CALCIUM 10 MG TAB PO SCH (09:00)
[2023-07-30 09:34] LABS: BUN Creatinine Ratio 22.6 (10-20); Calcium 8.7 mg/dl (8.6-10.3); Creatinine Clr Calc Pharmacy 42.9 ml/min; Est GFR (African American) 46.8 ml/min; Est GFR (Non-African American) 40.4 ml/min; Magnesium 2.1 mg/dl (1.7-2.4); Phosphorus 3.2 mg/dl (2.5-4.9); Potassium 4.9 mmol/L (3.5-5.1)
[2023-07-30] MEDS: LANTUS PER UNIT CHARGE SQ ONE (09:39)
[2023-07-30] MEDS: ROSUVASTATIN CALCIUM 20 MG TAB PO SCH (09:42)
[2023-07-30] MEDS: ASPIRIN 325 MG ECTAB PO SCH (09:43)
[2023-07-30] MEDS: ESCITALOPRAM OXALATE 20 MG TAB PO SCH (09:43)
--- NOTE | 2023-07-30 11:24 | Cardiology Consultation ---
Date of Consultation July 30, 2023 Assessment & Plan (1) CVA (cerebral vascular accident): (2) Recent URI: (3) Elevated troponin: (4) Hypertensive urgency: (5) CKD (chronic kidney disease), stage III: (6) Chronic diastolic CHF (congestive heart failure): (7) CAD (coronary artery disease): (8) HLD (hyperlipidemia): Plan Cerebrovascular accident. MRI with small acute infarcts in both occipital lobes. Carotid duplex with mild to moderate atherosclerotic plaque, without evidence of hemodynamically significant stenosis. Continuous monitoring manager without atrial fibrillation though clinical concern is high noted given underlying medical issues, resting echocardiography findings, left atrial enlargement. Noncompliance with medications noted prior to arrival. Continue monitoring manager while hospitalized. Recommend outpatient 14-day ZIO monitor followed by consideration for loop recorder implantation pending inpatient workup and ZIO findings. Elevated troponin. Patient asymptomatic. EKG without acute change. Resting echocardiography with preserved LV systolic function, without wall motion abnormality. Patient with known ASCVD. No evidence of an acute coronary syndrome. Elevated troponin appears to be multifactorial, due to critical illness, LVH, acute stroke, chronic kidney disease, etc. Recommend continuation of appropriate medical management, guideline directed medical therapies - metoprolol succinate, lisinopril, aspirin, and statin. Diastolic congestive heart failure. Volume status appears acceptable. Continue prior to arrival oral diuretic regimen. Hypertension. Hypertensive urgency noted on admission, significantly improved at present. It is difficult to determine what antihypertensive agents patient has received thus far. Continue beta-leidy therapy without interruption. Dyslipidemia. LDL goal less than 55 mg/dL. Agree with titration of rosuvastatin to 20 mg/day. Patient will likely require further titration of rosuvastatin followed by the addition of ezetimibe. Supervising Physician Co-Signing Physician Notes Patient was seen and examined, chart, medications, telemetry reviewed. Assessment and plan discussed and reviewed with advanced provider with recommendations as above Outpatient inpatient records reviewed Patient today denies any acute complaints, blood pressure trending towards better control. No arrhythmias on telemetry Findings do not suggest acute myocardial ischemia risk for demand ischemia based on the acute hypertensive urgency as well as acute stroke Review echocardiogram and underlying medical issues high risk for atrial arrhythmias though not observed would pursue aggressively as noted above. History of Present Illness Reason for Consultation: Elevated Troponin Requesting Physician: Arely Attending Physician: Ezekwem History of Present Illness Patient is a complex 63-year-old female who presented to the [facility] ER on July 29, 2023 with complaints of left-sided headache and weakness, following a fall onto the buttocks without associated syncope, family observing word finding difficulty for which they summoned EMS. Blood pressure on presentation was 226/94. Blood glucose 574 mg/deciliter. Hemoglobin A1c 14.1%. Head CT showed no acute intracranial abnormality. Brain MRI with small acute infarcts in both occipital lobes. Carotid duplex with mild to moderate atherosclerotic plaque, without evidence of hemodynamically significant stenosis. Continuous telemetry monitoring thus far demonstrates sinus with occasional PVC, heart rates predominantly in the 70s and 80s. No atrial fibrillation observed. Resting echocardiography revealed normal size left ventricle with moderate concentric LVH. LV wall motion was normal. Ejection fraction normal at 60 to 65%. Left atrium was notably moderately dilated. The interatrial septum was intact, without evidence of atrial septal defect; no interatrial shunt via contrast injection. Mild to moderate mitral regurgitation was observed along with trace aortic regurgitation. RVSP estimated at 40 to 50 mmHg. High-sensitivity troponin elevated as follows: 96.8, 100.1, 84.5, and 87.8 pg/mL. Patient asymptomatic, denying chest pain/discomfort or unusual shortness of breath. EKG without acute change. Resting echocardiography, as above, with preserved LV systolic function, without wall motion abnormality. Chest x-ray revealed mild cardiomegaly, without acute process. Patient notes previously following with cardiology in the [facility] with last evaluation 1 to 2 years ago. Patient has not established with cardiology locally since moving to this area before . Patient notes that her heart is the least of her worries. Notes previously undergoing PCI with implantation of 3 stents. Patient denies chest pain or discomfort. She denies palpitations. No unusual shortness of breath. She notes chronic lower extremity edema, unchanged. Stable orthopnea. No PND. No syncope. No fevers or chills. No melena or hematochezia. Patient notes very poor vision and ambulatory dysfunction. I was taking 1 weeks worth of medications over about a 2-week period. She notes occasional constipation. She describes mild URI symptoms. She denies history of atrial fibrillation. Past Medical and Surgical History Chronic diastolic heart failure ASCVD status post staged PCI to LAD 12/27/19 and RCA 01/24/20 Pulmonary hypertension Essential hypertension Mixed hyperlipidemia Type II diabetes mellitus, with history of diabetic foot ulcers, uncontrolled Chronic lower extremity lymphedema Stage III chronic kidney disease Hypothyroidism Morbid obesity Obstructive sleep apnea and nocturnal hypoxemia Anemia of chronic disease and iron deficiency Anxiety Depression Family History: Mother had cardiac issues related to rheumatic fever as a child. Father with an IN getting ready for work, age 56. Multiple family members with coronary artery disease. Social History: Non-smoker. No smokeless tobacco. No significant alcohol. No illegal drug use. Moved to this area from the [facility] shortly before . 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 Allergies Allergy/AdvReac Type Severity Reaction Status Date / Time No Known Allergies Allergy Unverified 07/29/23 15:45 Home Medications Medication Instructions Recorded Confirmed Type Trulicity See Rx Instructions .Route .COMPLEX 07/29/23 07/29/23 History amlodipine 10 mg tablet 10 mg PO DAILY 07/29/23 07/29/23 History aspirin 325 mg tablet 325 mg PO DAILY 07/29/23 07/29/23 History escitalopram oxalate 20 mg tablet 20 mg PO DAILY 07/29/23 07/29/23 History hydralazine 100 mg tablet 100 mg PO BID 07/29/23 07/29/23 History insulin detemir U-100 100 unit/mL 45 unit subcut BID 07/29/23 07/29/23 History (3 mL) subcutaneous pen (Levemir FlexPen) lisinopril 2.5 mg tablet 2.5 mg PO DAILY 07/29/23 07/29/23 History metformin 500 mg tablet 500 mg PO BID 07/29/23 07/29/23 History metoprolol succinate 100 mg 100 mg PO QAM 07/29/23 07/29/23 History tablet,extended release 24 hr rosuvastatin 10 mg tablet 10 mg PO DAILY 07/29/23 07/29/23 History sildenafil (pulm.hypertension) 20 20 mg PO TID 07/29/23 07/29/23 History mg tablet spironolactone 25 mg tablet 25 mg PO DAILY 07/29/23 07/29/23 History torsemide 20 mg tablet 20 mg PO DAILY 07/29/23 07/29/23 History Patient History Medical History Obesity, morbid, BMI 40.0-49.9 CKD (chronic kidney disease), stage III Chronic diastolic CHF (congestive heart failure) Anxiety and depression Pulmonary hypertension Hypothyroidism CAD (coronary artery disease) Diabetes mellitus, type II HLD (hyperlipidemia) Hypertension Surgical History History of cardiac cath s/p stents Social History Smoking Status: Unknown if ever smoked Hx Alcohol Use: No Hx Substance Use: No Preferred Language: [place]az[place] Communication Ability: Effective Associate Technician Required: No Beliefs That Will Affect Care: None Current Living Situation: Family Current Living Situation Comment: lives with son Other Information That Helps Us Care for You: No Feels Safe at Home: Yes Safety Concerns: Feels Safe At This Time Gender Identity: Female Assistive Devices: Walker Review of Systems Review of Systems: Complete review of systems is otherwise as stated above, negative, or noncontributory Physical Exam Physical Exam: General: A&Ox3. NAD. Elevated BMI HENT: Normocephalic. Atraumatic. Eyes: PER. Conjunctiva pink, sclera pale. Neck: Bilateral carotid bruits. No overt JVD (examined in the bedside chair) Heart: Somewhat distant heart sounds. Regular rate and rhythm. Soft systolic murmur heard at the lower left sternal border. No rub. Lungs: Coarse breath sounds with scattered rhonchi Abdomen: +BS. Soft. Nontender. No masses or organomegaly. Extremities: Thick lower extremities with minimal edema, lymphedematous changes. No clubbing. No cyanosis. No distal pulses. Limited neurological examination is without focal deficit. Results & Data Vital Signs (Past 12 Hours) Vital Signs Temp Pulse Pulse Resp BP BP Pulse Ox 07/30/23 08:00 146/77 H 07/30/23 07:56 36.8 C 74 14 153/77 H 94 07/30/23 02:37 36.6 C 69 20 144/85 H 96 07/30/23 00:00 79 O2 Del Method 07/30/23 08:00 07/30/23 07:56 Room Air 07/30/23 02:37 Room Air 07/30/23 00:00 Laboratory Results Cardiac Enzymes 07/29/23 07/29/23 07/29/23 Range/Units 11:30 14:41 20:57 AST 14 (13-39) U/L Troponin I High Sens 96.8 H* 100.0 H* 84.5 H* D (0-14) pg/ml 07/30/23 07/30/23 Range/Units 00:33 05:22 AST 10 L (13-39) U/L Troponin I High Sens 87.8 H* (0-14) pg/ml Lipids 07/30/23 Range/Units 05:22 Triglycerides 211 H (0-150) mg/dl Cholesterol 218 H (0-200) mg/dl HDL Cholesterol 42 mg/dl Cholesterol/HDL Ratio 5.2 H (0-5) CBC 07/30/23 Range/Units 05:28 WBC 13.62 H (4.8-10.8) K/ul RBC 4.26 (4.20-5.40) M/uL Hgb 11.5 L D (12.0-16.0) g/dl Hct 34.6 L (37.0-47.0) % Plt Count 291 (130-400) K/uL Neut # (Auto) 10.56 H (1.40-6.50) K/uL Lymph # (Auto) 1.89 (1.20-3.40) K/uL [place] # (Auto) 1.03 H (0.11-0.59) K/uL Eos # (Auto) 0.03 (0.00-0.50) K/uL Baso # (Auto) 0.06 (0.00-0.20) K/uL Comprehensive Metabolic Panel 07/29/23 07/29/23 07/29/23 Range/Units 11:30 17:44 20:57 Sodium 130 L 132 L 133 L (136-145) mmol/L Potassium 4.5 4.4 3.8 (3.5-5.1) mmol/L Chloride 96 L 101 101 (98-107) mmol/L Carbon Dioxide 24 22 20 L (21-32) mmol/L BUN 30 H 31 H 31 H (6-23) mg/dl Creatinine 1.29 H 1.24 H 1.30 H (0.6-1.2) mg/dl Glucose 574 H* 416 H* 406 H* (70-99(Fasting)) mg/dl Calcium 9.5 8.8 9.0 (8.6-10.3) mg/dl AST 14 (13-39) U/L ALT 15 (7-52) U/L Alkaline Phosphatase 120 H (34-104) U/L Total Protein 7.6 (6.0-8.3) gm/dl Albumin 3.3 L (3.4-5.0) gm/dl 07/30/23 07/30/23 07/30/23 Range/Units 00:33 05:22 08:53 Sodium 134 L 133 L 132 L (136-145) mmol/L Potassium 3.9 4.6 4.9 (3.5-5.1) mmol/L Chloride 103 103 102 (98-107) mmol/L Carbon Dioxide 24 23 22 (21-32) mmol/L BUN 32 H 32 H 31 H (6-23) mg/dl Creatinine 1.40 H 1.36 H 1.37 H (0.6-1.2) mg/dl Glucose 230 H 122 H 235 H (70-99(Fasting)) mg/dl Calcium 8.8 8.8 8.7 (8.6-10.3) mg/dl AST 10 L (13-39) U/L ALT 11 (7-52) U/L Alkaline Phosphatase 76 (34-104) U/L Total Protein 5.7 L D (6.0-8.3) gm/dl Albumin 2.6 L (3.4-5.0) gm/dl Intake and Output 07/29/23 07/30/23 07/30/23 22:59 06:59 14:59 Intake Total 1254.334 / 2405.101 1050.767 / 2405.101 2.9 / 2.9 Balance 1254.334 / 2405.101 1050.767 / 2405.101 2.9 / 2.9 Intake: IV 1254.334 / 2405.101 1050.767 / 2405.101 2.9 / 2.9 Acetaminophen 1,000 mg In 100 100 / 100 ml @ 400 mls/hr IV NOW STA Rx#: [id number] Doxycycline Hyclate 100 mg In 100.000 / 100.000 Dextrose 5% Mini-B 100 ml @ 50 mls/hr IV Q12H [facility] Rx#:[id number] Insulin Regular 250 units In 27.667 / 65.934 38.267 / 65.934 2.9 / 2.9 Sodium Chloride 0.9% 247.5 ml @ 10 UNITS/HR 10 mls/hr IV .Q24H [facility] Rx#:[id number] Plasma-Lyte A 1,000 ml @ 100 76.667 / 76.667 mls/hr IV .Q10H [facility] Rx#: [id number] Sodium Chlor 0.45% + 20Meq KCl 912.5 / 912.5 20 meq In 1,000 ml @ 125 mls/hr IV .Q8H [facility] Rx#:[id number] Sodium Chloride 0.9% 1,000 ml @ 1000 / 1000 999 mls/hr IV .Q1H1M [facility] Rx#: [id number] cefTRIAXone SODIUM 2,000 mg In 50 / 50 Dextrose 5 % Mini-B 50 ml @ 100 mls/hr IV Q24H [facility] Rx#: [id number] Other: Weight 113.8 kg 94.4 kg Weight Measurement Method Built in [facility] Built in [facility]
--- NOTE | 2023-07-30 11:33 | Hospitalist Progress Note ---
Date of Service July 30, 2023 Assessment & Plan (1) CVA (cerebral vascular accident): (2) Weakness: (3) Stroke-like symptoms: Plan: 63-year-old female with PMH uncontrolled DM II, HTN, dyslipidemia, CAD, H/O HI s/p stents, hypothyroidism, RADHA, nocturnal hypoxia, pulmonary hypertension, chronic diastolic heart failure, depression, anxiety, CKD III-IV presented to ER with c/o weakness and fall the morning of admission. Denied hitting head, dizziness, CP, SOB. Patient with reported left sided headache and without focal deficits upon initial exam. Had also reported left sided facial paresthesias the previous day In ER patient found to be hypertensive with BP: 226/94, and hyperglycemic with glucose of 574. She was given Tylenol, two doses of hydralazine 10mg IV with repeat BP 166/69. Given total 15 units of insulin with repeat BSG 365. Initial CT scan head without acute findings. Initial exam upon admission patient without focal deficits and normal speech. Weakness and Headache were initially thought possible to hypertensive encephalopathy, hyperglycemia DDX: TIA, CVA, atypical migraine, hypertensive encephalopathy On day of admission, ER nurse at 17:03 noted that patient having slurred speech and word finding difficulties. Repeat BP: 199/110. BSG high 300's. Some reported decreased sensation left side of face, +slight right sided mouth drooping (appears similar to initial presentation) +expressive aphasia with some slurred speech. Alert and oriented x 3. EOMs intact. No nystagmus, Hearing grossly intact, soft palate elevates symmetrically, shoulder shrug intact, tongue is midline, normal movement, no fasciculations, strength 5/5 bilateral upper extremities, chronically unable to lift legs, pedal pushes and pulls intact bilaterally. Stroke alert called Repeat CT head No acute intracranial hemorrhage, no evidence of acute territorial infarction or other acute intracranial disease process. MRI brain showed small acute infarcts in both occipital lobes Carotid doppler noted mild to mod atherosclerotic plaque. No evidence for hemodynamically significant stenosis Hence patient has Acute occipital infarcts [employer]CH[employer]ISING [employer]AD/PT/OT HbA1c is 14.1 Lipid panel noted total cholesterol of 218, LDL 134, HDL 42, Trig 211 Hence patient has poorly controlled DM and hyperlipidemia as well Counseled patient regarding findings on imaging and lab work. She reported she has not been taking her insulin for a while due to problems seeing and poor hand/finger dexterity Provided DM education DM educator consult Will call son later to discuss further with him about her medical problems including med mgt at home Follow up TTE Monitor tele. Will need zio patch testing May need anticoagulation considering embolic nature of infarcts Currently on ASA 324 Will appreciate Neuro eval Home rosuvastatin increased to 20mg (4) Hypertensive urgency: Plan: History medication noncompliance In ER patient found to be hypertensive with BP: 226/94, and hyperglycemic with glucose of 574. She was given Tylenol, two doses of hydralazine 10mg IV with repeat BP 166/69 Nitropaste applied. Initially home medications of amlodipine, lisinopril, metoprolol succinate given Prior to stroke alert called in ER Considering acute infarct, home antihypertensives held for permissive HTN Will follow up Neuro recs (5) Hyperglycemia: (6) Diabetes mellitus, type II: Plan: History uncontrolled diabetes. History of med occasion noncompliance A1c: 13.3 on 01/17/2023 In ER glucose of 574. Given total 15 units of insulin with repeat BSG 365.VBG: pH: 7.34, pCO2: 50, HCO3 27. Corrected sodium 138 for glucose 574, osmolality: 319 HbA1c is 14.1 Neurological symptoms present on admission likely from CVA not HHS Poorly controlled Discussed with Pharm earlier. Transitioned to sq from insulin drip that was initially started on admission DM educator consult Other plans as above (7) Elevated troponin: (8) Non-ST elevation HI (NSTEMI): (9) CAD (coronary artery disease): Plan: Reported history of CAD, HI s/p stents ?in 2019 in [place], [place] Troponin 96.8--> 100-->> 87. EKG sinus rhythm without acute ST changes noted Denies chest pain, shortness of breath Possible demand ischemia Will follow up TTE Continue aspirin, metoprolol succinate, rosuvastatin Will appreciate Cardiology eval regarding this especially in view of stroke, possible embolic nature (10) Foot ulcer, left: Plan: Diabetic foot ulcer left heel Continue Rocephin, doxycycline Wound nurse consult (11) Recent URI: Plan: Recent URI symptoms with reported improvement Biofire respiratory panel +coronavirus CXR: No acute infiltrate 92% on room air ? Chronic respiratory failure per patient's [id number]. She reports previously patient was prescribed 2 L oxygen to use continuously however patient previously noncompliant so oxygen returned Monitor O2 sats May need to consider two step prior to discharge (12) CKD (chronic kidney disease), stage III: Plan: CKD III-IV per outpatient records BUN: 30, Cr: 1.29. Cr: 1.0 on 03/16/2023, 1.9 on 01/17/2023 Monitor renal functions, avoid nephrotoxic agents when possible (13) Chronic diastolic CHF (congestive heart failure): Plan: Resume home torsemide, spironolactone (14) Pulmonary hypertension: Plan: On sildenafil Resume and monitor (15) Anxiety and depression: Plan: Denies suicidal ideations Medication noncompliance Continue escitalopram (16) HLD (hyperlipidemia): Plan: Rosuvastatin increased as above (17) Obesity, morbid, BMI 40.0-49.9: Plan: BMI: 39 Lifestyle modifications should be addressed when appropriate during hospital course (18) Hypothyroidism: Plan: Reported history hypothyroidism Not on medications TSH: 2.2 Urine culture growing GNR Possible UTI Will be covered by Ceftriaxone patient is currently getting DVT Prophylaxis SCDs DNR/DNI as per discussion with pt Previously seen by Dr Webb, as was getting established for local care I spent a total of 55 minutes reviewing notes, outpatient records, labs, medication, coordinating, documenting and providing care for this patient excluding time spent in the performance of separately billed services. Admission and Anticipated Discharge Date Admission Date: July 29, 2023 Subjective Patient seen and examined Denied any headache today Reports chronic visual problems Reports generalized weakness. Reports chronic peripheral neuropathy in feet. Reports she lives with son and ambulates with walker Denied any dysphagia Reports generalized weakness. Denied focal weakness. Denied cough, chest pain, SOB, nausea, vomiting, abd pain, diarrhea Denied dysuria, freq, urgency Physical Exam Constitutional: + well hydrated; no acute distress Eyes: PERRL. +catarract ENMT: external ear and nose normal, oropharynx normal Respiratory: normal respiratory effort, lungs clear to auscultation Cardiovascular: Rate/Rhythm: regular rate and regular rhythm S1 S2 Gastrointestinal (Abdomen): normal bowel sounds, soft, nontender, no hepatosplenomegaly Musculoskeletal: Trace pedal edema. Big LE Neurologic: EOMI. Slight right sided downturn of mouth which is reported to be chronic by family per H/P Power equal and normal in both UE. Reduced in both LE equally Sensory deficits in both feet (patient attributed this to her neuropathy) Psychiatric: A+Ox3, euthymic affect Results & Data Results & Data Vital Signs (Past 12 Hours) Vital Signs Temp Pulse Pulse Resp BP BP Pulse Ox 07/30/23 08:00 146/77 H 07/30/23 07:56 36.8 C 74 14 153/77 H 94 07/30/23 02:37 36.6 C 69 20 144/85 H 96 07/30/23 00:00 79 07/29/23 23:20 37.0 C 74 20 126/69 94 O2 Del Method 07/30/23 08:00 07/30/23 07:56 Room Air 07/30/23 02:37 Room Air 07/30/23 00:00 07/29/23 23:20 Room Air Laboratory Results Abnormal lab results 07/29/23 07/29/23 07/29/23 Range/Units 11:30 12:00 14:07 WBC 12.29 H (4.8-10.8) K/ul Hgb (12.0-16.0) g/dl Hct (37.0-47.0) % Neut # (Auto) 10.31 H (1.40-6.50) K/uL [place] # (Auto) (0.11-0.59) K/uL VBG pH 7.34 L (7.36-7.41) Sodium 130 L (136-145) mmol/L Chloride 96 L (98-107) mmol/L Carbon Dioxide (21-32) mmol/L Anion Gap (3-11) BUN 30 H (6-23) mg/dl Creatinine 1.29 H (0.6-1.2) mg/dl BUN/Creatinine Ratio 23.3 H (10-20) Glucose 574 H* (70-99(Fasting)) mg/dl POC Glucose 471 H* (70-99) mg/dl Hemoglobin A1c (4.5-5.6) % Osmolality 319 H (280-300) mOsm/kg AST (13-39) U/L Alkaline Phosphatase 120 H (34-104) U/L Troponin I High Sens 96.8 H* (0-14) pg/ml Total Protein (6.0-8.3) gm/dl Albumin 3.3 L (3.4-5.0) gm/dl Globulin 4.3 H (2.5-4.0) gm/dl Albumin/Globulin Ratio 0.8 L (0.9-2) Triglycerides (0-150) mg/dl Cholesterol (0-200) mg/dl VLDL Cholesterol, Calc (0-30) mg/dl Cholesterol/HDL Ratio (0-5) Urine Appearance (Clear) Ur Specific [place] (1.000-1.030) Urine Protein (Negative) Urine Glucose (UA) (Negative) Urine Ketones (Negative) Urine Blood (Negative) Urine WBC (Auto) (0-5) /hpf U Hyaline Cast (Auto) (0-5) /lpf U Epithel Cells (Auto) (0-5) /lpf Urine Bacteria (Auto) (Negative) Coronavirus 229E (PCR) DETECTED A (NotDetected) 07/29/23 07/29/23 07/29/23 Range/Units 14:41 16:20 17:44 WBC (4.8-10.8) K/ul Hgb (12.0-16.0) g/dl Hct (37.0-47.0) % Neut # (Auto) (1.40-6.50) K/uL [place] # (Auto) (0.11-0.59) K/uL VBG pH (7.36-7.41) Sodium 132 L (136-145) mmol/L Chloride (98-107) mmol/L Carbon Dioxide (21-32) mmol/L Anion Gap (3-11) BUN 31 H (6-23) mg/dl Creatinine 1.24 H (0.6-1.2) mg/dl BUN/Creatinine Ratio 25.0 H (10-20) Glucose 416 H* (70-99(Fasting)) mg/dl POC Glucose 365 H* (70-99) mg/dl Hemoglobin A1c (4.5-5.6) % Osmolality (280-300) mOsm/kg AST (13-39) U/L Alkaline Phosphatase (34-104) U/L Troponin I High Sens 100.0 H* (0-14) pg/ml Total Protein (6.0-8.3) gm/dl Albumin (3.4-5.0) gm/dl Globulin (2.5-4.0) gm/dl Albumin/Globulin Ratio (0.9-2) Triglycerides (0-150) mg/dl Cholesterol (0-200) mg/dl VLDL Cholesterol, Calc (0-30) mg/dl Cholesterol/HDL Ratio (0-5) Urine Appearance (Clear) Ur Specific [place] (1.000-1.030) Urine Protein (Negative) Urine Glucose (UA) (Negative) Urine Ketones (Negative) Urine Blood (Negative) Urine WBC (Auto) (0-5) /hpf U Hyaline Cast (Auto) (0-5) /lpf U Epithel Cells (Auto) (0-5) /lpf Urine Bacteria (Auto) (Negative) Coronavirus 229E (PCR) (NotDetected) 07/29/23 07/29/23 07/29/23 Range/Units 19:53 20:31 20:57 WBC (4.8-10.8) K/ul Hgb (12.0-16.0) g/dl Hct (37.0-47.0) % Neut # (Auto) (1.40-6.50) K/uL [place] # (Auto) (0.11-0.59) K/uL VBG pH 7.32 L (7.36-7.41) Sodium 133 L (136-145) mmol/L Chloride (98-107) mmol/L Carbon Dioxide 20 L (21-32) mmol/L Anion Gap 12 H (3-11) BUN 31 H (6-23) mg/dl Creatinine 1.30 H (0.6-1.2) mg/dl BUN/Creatinine Ratio 23.8 H (10-20) Glucose 406 H* (70-99(Fasting)) mg/dl POC Glucose 422 H* 391 H* (70-99) mg/dl Hemoglobin A1c (4.5-5.6) % Osmolality (280-300) mOsm/kg AST (13-39) U/L Alkaline Phosphatase (34-104) U/L Troponin I High Sens 84.5 H* D (0-14) pg/ml Total Protein (6.0-8.3) gm/dl Albumin (3.4-5.0) gm/dl Globulin (2.5-4.0) gm/dl Albumin/Globulin Ratio (0.9-2) Triglycerides (0-150) mg/dl Cholesterol (0-200) mg/dl VLDL Cholesterol, Calc (0-30) mg/dl Cholesterol/HDL Ratio (0-5) Urine Appearance (Clear) Ur Specific [place] (1.000-1.030) Urine Protein (Negative) Urine Glucose (UA) (Negative) Urine Ketones (Negative) Urine Blood (Negative) Urine WBC (Auto) (0-5) /hpf U Hyaline Cast (Auto) (0-5) /lpf U Epithel Cells (Auto) (0-5) /lpf Urine Bacteria (Auto) (Negative) Coronavirus 229E (PCR) (NotDetected) 07/29/23 07/29/23 07/29/23 Range/Units 21:34 22:29 23:34 WBC (4.8-10.8) K/ul Hgb (12.0-16.0) g/dl Hct (37.0-47.0) % Neut # (Auto) (1.40-6.50) K/uL [place] # (Auto) (0.11-0.59) K/uL VBG pH (7.36-7.41) Sodium (136-145) mmol/L Chloride (98-107) mmol/L Carbon Dioxide (21-32) mmol/L Anion Gap (3-11) BUN (6-23) mg/dl Creatinine (0.6-1.2) mg/dl BUN/Creatinine Ratio (10-20) Glucose (70-99(Fasting)) mg/dl POC Glucose 347 H* 329 H* 255 H (70-99) mg/dl Hemoglobin A1c (4.5-5.6) % Osmolality (280-300) mOsm/kg AST (13-39) U/L Alkaline Phosphatase (34-104) U/L Troponin I High Sens (0-14) pg/ml Total Protein (6.0-8.3) gm/dl Albumin (3.4-5.0) gm/dl Globulin (2.5-4.0) gm/dl Albumin/Globulin Ratio (0.9-2) Triglycerides (0-150) mg/dl Cholesterol (0-200) mg/dl VLDL Cholesterol, Calc (0-30) mg/dl Cholesterol/HDL Ratio (0-5) Urine Appearance (Clear) Ur Specific [place] (1.000-1.030) Urine Protein (Negative) Urine Glucose (UA) (Negative) Urine Ketones (Negative) Urine Blood (Negative) Urine WBC (Auto) (0-5) /hpf U Hyaline Cast (Auto) (0-5) /lpf U Epithel Cells (Auto) (0-5) /lpf Urine Bacteria (Auto) (Negative) Coronavirus 229E (PCR) (NotDetected) 07/29/23 07/30/23 07/30/23 Range/Units Unknown 00:30 00:33 WBC (4.8-10.8) K/ul Hgb (12.0-16.0) g/dl Hct (37.0-47.0) % Neut # (Auto) (1.40-6.50) K/uL [place] # (Auto) (0.11-0.59) K/uL VBG pH (7.36-7.41) Sodium 134 L (136-145) mmol/L Chloride (98-107) mmol/L Carbon Dioxide (21-32) mmol/L Anion Gap (3-11) BUN 32 H (6-23) mg/dl Creatinine 1.40 H (0.6-1.2) mg/dl BUN/Creatinine Ratio 22.9 H (10-20) Glucose 230 H (70-99(Fasting)) mg/dl POC Glucose 223 H (70-99) mg/dl Hemoglobin A1c (4.5-5.6) % Osmolality (280-300) mOsm/kg AST (13-39) U/L Alkaline Phosphatase (34-104) U/L Troponin I High Sens 87.8 H* (0-14) pg/ml Total Protein (6.0-8.3) gm/dl Albumin (3.4-5.0) gm/dl Globulin (2.5-4.0) gm/dl Albumin/Globulin Ratio (0.9-2) Triglycerides (0-150) mg/dl Cholesterol (0-200) mg/dl VLDL Cholesterol, Calc (0-30) mg/dl Cholesterol/HDL Ratio (0-5) Urine Appearance Cloudy A (Clear) Ur Specific [place] 1.032 H (1.000-1.030) Urine Protein 4+ H (Negative) Urine Glucose (UA) 3+ H (Negative) Urine Ketones 1+ H (Negative) Urine Blood 1+ H (Negative) Urine WBC (Auto) 10-30 H (0-5) /hpf U Hyaline Cast (Auto) 5-10 H (0-5) /lpf U Epithel Cells (Auto) >30 H (0-5) /lpf Urine Bacteria (Auto) 4+ H (Negative) Coronavirus 229E (PCR) (NotDetected) 07/30/23 07/30/23 07/30/23 Range/Units 01:34 02:35 04:37 WBC (4.8-10.8) K/ul Hgb (12.0-16.0) g/dl Hct (37.0-47.0) % Neut # (Auto) (1.40-6.50) K/uL [place] # (Auto) (0.11-0.59) K/uL VBG pH (7.36-7.41) Sodium (136-145) mmol/L Chloride (98-107) mmol/L Carbon Dioxide (21-32) mmol/L Anion Gap (3-11) BUN (6-23) mg/dl Creatinine (0.6-1.2) mg/dl BUN/Creatinine Ratio (10-20) Glucose (70-99(Fasting)) mg/dl POC Glucose 166 H 122 H 105 H (70-99) mg/dl Hemoglobin A1c (4.5-5.6) % Osmolality (280-300) mOsm/kg AST (13-39) U/L Alkaline Phosphatase (34-104) U/L Troponin I High Sens (0-14) pg/ml Total Protein (6.0-8.3) gm/dl Albumin (3.4-5.0) gm/dl Globulin (2.5-4.0) gm/dl Albumin/Globulin Ratio (0.9-2) Triglycerides (0-150) mg/dl Cholesterol (0-200) mg/dl VLDL Cholesterol, Calc (0-30) mg/dl Cholesterol/HDL Ratio (0-5) Urine Appearance (Clear) Ur Specific [place] (1.000-1.030) Urine Protein (Negative) Urine Glucose (UA) (Negative) Urine Ketones (Negative) Urine Blood (Negative) Urine WBC (Auto) (0-5) /hpf U Hyaline Cast (Auto) (0-5) /lpf U Epithel Cells (Auto) (0-5) /lpf Urine Bacteria (Auto) (Negative) Coronavirus 229E (PCR) (NotDetected) 07/30/23 07/30/23 07/30/23 Range/Units 05:22 05:28 07:23 WBC 13.62 H (4.8-10.8) K/ul Hgb 11.5 L D (12.0-16.0) g/dl Hct 34.6 L (37.0-47.0) % Neut # (Auto) 10.56 H (1.40-6.50) K/uL [place] # (Auto) 1.03 H (0.11-0.59) K/uL VBG pH (7.36-7.41) Sodium 133 L (136-145) mmol/L Chloride (98-107) mmol/L Carbon Dioxide (21-32) mmol/L Anion Gap (3-11) BUN 32 H (6-23) mg/dl Creatinine 1.36 H (0.6-1.2) mg/dl BUN/Creatinine Ratio 23.5 H (10-20) Glucose 122 H (70-99(Fasting)) mg/dl POC Glucose 150 H (70-99) mg/dl Hemoglobin A1c 14.1 H (4.5-5.6) % Osmolality (280-300) mOsm/kg AST 10 L (13-39) U/L Alkaline Phosphatase (34-104) U/L Troponin I High Sens (0-14) pg/ml Total Protein 5.7 L D (6.0-8.3) gm/dl Albumin 2.6 L (3.4-5.0) gm/dl Globulin (2.5-4.0) gm/dl Albumin/Globulin Ratio 0.8 L (0.9-2) Triglycerides 211 H (0-150) mg/dl Cholesterol 218 H (0-200) mg/dl VLDL Cholesterol, Calc 42 H (0-30) mg/dl Cholesterol/HDL Ratio 5.2 H (0-5) Urine Appearance (Clear) Ur Specific [place] (1.000-1.030) Urine Protein (Negative) Urine Glucose (UA) (Negative) Urine Ketones (Negative) Urine Blood (Negative) Urine WBC (Auto) (0-5) /hpf U Hyaline Cast (Auto) (0-5) /lpf U Epithel Cells (Auto) (0-5) /lpf Urine Bacteria (Auto) (Negative) Coronavirus 229E (PCR) (NotDetected) 07/30/23 07/30/23 Range/Units 08:53 11:00 WBC (4.8-10.8) K/ul Hgb (12.0-16.0) g/dl Hct (37.0-47.0) % Neut # (Auto) (1.40-6.50) K/uL [place] # (Auto) (0.11-0.59) K/uL VBG pH 7.33 L (7.36-7.41) Sodium 132 L (136-145) mmol/L Chloride (98-107) mmol/L Carbon Dioxide (21-32) mmol/L Anion Gap (3-11) BUN 31 H (6-23) mg/dl Creatinine 1.37 H (0.6-1.2) mg/dl BUN/Creatinine Ratio 22.6 H (10-20) Glucose 235 H (70-99(Fasting)) mg/dl POC Glucose 220 H (70-99) mg/dl Hemoglobin A1c (4.5-5.6) % Osmolality (280-300) mOsm/kg AST (13-39) U/L Alkaline Phosphatase (34-104) U/L Troponin I High Sens (0-14) pg/ml Total Protein (6.0-8.3) gm/dl Albumin (3.4-5.0) gm/dl Globulin (2.5-4.0) gm/dl Albumin/Globulin Ratio (0.9-2) Triglycerides (0-150) mg/dl Cholesterol (0-200) mg/dl VLDL Cholesterol, Calc (0-30) mg/dl Cholesterol/HDL Ratio (0-5) Urine Appearance (Clear) Ur Specific [place] (1.000-1.030) Urine Protein (Negative) Urine Glucose (UA) (Negative) Urine Ketones (Negative) Urine Blood (Negative) Urine WBC (Auto) (0-5) /hpf U Hyaline Cast (Auto) (0-5) /lpf U Epithel Cells (Auto) (0-5) /lpf Urine Bacteria (Auto) (Negative) Coronavirus 229E (PCR) (NotDetected)
--- NOTE | 2023-07-30 14:02 | Neurology Consultation ---
Date of Consultation July 30, 2023 Assessment & Plan (1) CVA (cerebral vascular accident): Areas of restricted diffusion bilateral occipital lobes consistent with stroke Concern for cardioembolic etiology CTA head & neck pending Continue to monitor neurological assessments frequently Obtain stat CT brain without contrast for any acute neurological decline Continue to monitor/control blood pressure & blood glucose Metabolic workup should include hgbA1c, fasting lipids, homocysteine, TSH, D Dimer Recommend continue antiplatelet & statin therapy May benefit from full anticoagulation as there is concern for possible cardioembolic strokes Recommend continued close monitoring of telemetry and consider medical terminologist cardiac monitoring seeking to identify cardiac arrythmia Ok from neurology perspective for VTE prophylaxis PT/OT/SLT to eval and treat Telehealth Consultation Telehealth Information Telehealth Information: I performed this visit using a real-time telehealth connection between my location and the patients location ([facility]). After connecting through interactive tele-video, patient was identified by name and date of and/or wristband check.Patient (or authorized healthcare congressional representative) was informed that this was a telemedicine visit and it was being conducted confidentially over secure lines. My office door was closed and no one else was present in the room with me.Patient (or authorized healthcare congressional representative) provided consent to proceed with the visit, expressed an understanding of privacy and security of the telemedicine visit, and gave p ermission to have a hospital congressional representative in the room in order to assist with the visit and to conduct portions of the visit, as needed. I informed the patient (or authorized healthcare congressional representative) that I reviewed their record and presented the opportunity for them to ask any questions regarding the visit today. The patient agreed to participate. History of Present Illness Reason for Consultation: Stroke Requesting Physician: Dr. aCsillas Attending Physician: Maxine Casillas MD History of Present Illness 63yo female with significant past medical history including HTN, DM, CAD, NE, RADHA, CKD, HF presented to the ER with report of headache falls and weakness and left facial paresthesia. She also se;f reports having difficulty thinking clearly and demonstrated word finding difficulty/expressive aphasia. She arrived severely hypertensive and was not considered an IV thrombolytic candidate due to timing of onset of symptoms. She also demonstrated vastly elevated blood glucose at time of arrival as well. She underwent a CT brain without contrast revealing no evidence of hemorrhage. She was admitted and has undergone MRI confirming areas of restricted diffusion bilateral occipital lobes, She has been seen by cardiology as at this time there remains concern for atrial arrhythmia. Performed televideo consultation. At this time patient appears in no apparent distress or discomfort. She is alert and oriented, able to answer all questions appropriately and follow commands without difficulty. She reports chronic decreased visual acuity. States no noticeable changes in vision. It is difficult to accurately assess for visual field deficits at this time. She is able to name objects and read words on televideo screen without difficulty. Neurological examination is nonlateralizing/nonfocal in terms of motor strength and coordination. At this time denies pain or discomfort. No reported cephalgia or cervicalgia. Denies chest pain/palpitations or shortness of breath. No reported changes in vision hearing dizziness syncope seizure like activity or paresthesia. Denies recent fevers chills nausea vomiting changes in bowels or bladder. Denies recent medication changes, recent illness or sick contacts, no reported recent travel. Allergies Allergy/AdvReac Type Severity Reaction Status Date / Time No Known Allergies Allergy Unverified 07/29/23 15:45 Home Medications Medication Instructions Recorded Confirmed Type Trulicity See Rx Instructions .Route .COMPLEX 07/29/23 07/29/23 History amlodipine 10 mg tablet 10 mg PO DAILY 07/29/23 07/29/23 History aspirin 325 mg tablet 325 mg PO DAILY 07/29/23 07/29/23 History escitalopram oxalate 20 mg tablet 20 mg PO DAILY 07/29/23 07/29/23 History hydralazine 100 mg tablet 100 mg PO BID 07/29/23 07/29/23 History insulin detemir U-100 100 unit/mL 45 unit subcut BID 07/29/23 07/29/23 History (3 mL) subcutaneous pen (Levemir FlexPen) lisinopril 2.5 mg tablet 2.5 mg PO DAILY 07/29/23 07/29/23 History metformin 500 mg tablet 500 mg PO BID 07/29/23 07/29/23 History metoprolol succinate 100 mg 100 mg PO QAM 07/29/23 07/29/23 History tablet,extended release 24 hr rosuvastatin 10 mg tablet 10 mg PO DAILY 07/29/23 07/29/23 History sildenafil (pulm.hypertension) 20 20 mg PO TID 07/29/23 07/29/23 History mg tablet spironolactone 25 mg tablet 25 mg PO DAILY 07/29/23 07/29/23 History torsemide 20 mg tablet 20 mg PO DAILY 07/29/23 07/29/23 History Patient History Medical History (Updated 07/30/23 @ 13:56 by Kieran Brown DO) CVA (cerebral vascular accident) Obesity, morbid, BMI 40.0-49.9 CKD (chronic kidney disease), stage III Chronic diastolic CHF (congestive heart failure) Anxiety and depression Pulmonary hypertension Hypothyroidism CAD (coronary artery disease) Diabetes mellitus, type II HLD (hyperlipidemia) Hypertension Surgical History History of cardiac cath s/p stents Social History Smoking Status: Unknown if ever smoked Hx Alcohol Use: No Hx Substance Use: No Preferred Language: Ecuadorean Communication Ability: Effective Delivery Agent Required: No Beliefs That Will Affect Care: None Current Living Situation: Family Current Living Situation Comment: lives with son Other Information That Helps Us Care for You: No Feels Safe at Home: Yes Safety Concerns: Feels Safe At This Time Gender Identity: Female Assistive Devices: Walker Physical Exam Neurological Examination: Mental Status: Awake and alert. Oriented to person, place, and time. Fluency naming repetition and comprehension appear grossly intact. Affect remains appropriate. CN testing: I: Denies changes in ability to smell II:Reports chronic changes in visual acuity III/IV/: No evidence of gaze preference, hippus, nystagmus or roving eye movements V: Facial sensation reportedly grossly intact to light touch bilaterally VII: Facial movements appear without evidence of asymmetry VIII: Hearing appears grossly intact to loud voice bilaterally IX/X: Palate is unable to be accurately visualized XI: Shoulder shrug appears symmetric/ grossly intact bilaterally XII: Tongue protrudes midline without evidence of biting Motor exam: Strength appears grossly intact/symmetric in all extremities Sensory: Sensation is difficult to reliably assess Coordination: No apparent evidence of dysmetria or dysdiadochokinesia Reflexes: Deferred Gait: Deferred Results & Data Vital Signs (Past 12 Hours) Vital Signs Temp Pulse Resp BP BP Pulse Ox O2 Del Method 07/30/23 11:20 36.6 C 74 20 147/84 H 96 Room Air 07/30/23 08:00 146/77 H 07/30/23 07:56 36.8 C 74 14 153/77 H 94 Room Air 07/30/23 02:37 36.6 C 69 20 144/85 H 96 Room Air Laboratory Results Abnormal lab results 07/29/23 07/29/23 07/29/23 Range/Units 11:30 14:07 14:41 WBC (4.8-10.8) K/ul Hgb (12.0-16.0) g/dl Hct (37.0-47.0) % Neut # (Auto) (1.40-6.50) K/uL Crawford # (Auto) (0.11-0.59) K/uL VBG pH (7.36-7.41) Sodium (136-145) mmol/L Carbon Dioxide (21-32) mmol/L Anion Gap (3-11) BUN (6-23) mg/dl Creatinine (0.6-1.2) mg/dl BUN/Creatinine Ratio (10-20) Glucose (70-99(Fasting)) mg/dl POC Glucose 471 H* (70-99) mg/dl Hemoglobin A1c (4.5-5.6) % Osmolality 319 H (280-300) mOsm/kg AST (13-39) U/L Troponin I High Sens 100.0 H* (0-14) pg/ml Total Protein (6.0-8.3) gm/dl Albumin (3.4-5.0) gm/dl Albumin/Globulin Ratio (0.9-2) Triglycerides (0-150) mg/dl Cholesterol (0-200) mg/dl VLDL Cholesterol, Calc (0-30) mg/dl Cholesterol/HDL Ratio (0-5) Urine Appearance (Clear) Ur Specific [place] (1.000-1.030) Urine Protein (Negative) Urine Glucose (UA) (Negative) Urine Ketones (Negative) Urine Blood (Negative) Urine WBC (Auto) (0-5) /hpf U Hyaline Cast (Auto) (0-5) /lpf U Epithel Cells (Auto) (0-5) /lpf Urine Bacteria (Auto) (Negative) 07/29/23 07/29/23 07/29/23 Range/Units 16:20 17:44 19:53 WBC (4.8-10.8) K/ul Hgb (12.0-16.0) g/dl Hct (37.0-47.0) % Neut # (Auto) (1.40-6.50) K/uL Crawford # (Auto) (0.11-0.59) K/uL VBG pH (7.36-7.41) Sodium 132 L (136-145) mmol/L Carbon Dioxide (21-32) mmol/L Anion Gap (3-11) BUN 31 H (6-23) mg/dl Creatinine 1.24 H (0.6-1.2) mg/dl BUN/Creatinine Ratio 25.0 H (10-20) Glucose 416 H* (70-99(Fasting)) mg/dl POC Glucose 365 H* 422 H* (70-99) mg/dl Hemoglobin A1c (4.5-5.6) % Osmolality (280-300) mOsm/kg AST (13-39) U/L Troponin I High Sens (0-14) pg/ml Total Protein (6.0-8.3) gm/dl Albumin (3.4-5.0) gm/dl Albumin/Globulin Ratio (0.9-2) Triglycerides (0-150) mg/dl Cholesterol (0-200) mg/dl VLDL Cholesterol, Calc (0-30) mg/dl Cholesterol/HDL Ratio (0-5) Urine Appearance (Clear) Ur Specific [place] (1.000-1.030) Urine Protein (Negative) Urine Glucose (UA) (Negative) Urine Ketones (Negative) Urine Blood (Negative) Urine WBC (Auto) (0-5) /hpf U Hyaline Cast (Auto) (0-5) /lpf U Epithel Cells (Auto) (0-5) /lpf Urine Bacteria (Auto) (Negative) 07/29/23 07/29/23 07/29/23 Range/Units 20:31 20:57 21:34 WBC (4.8-10.8) K/ul Hgb (12.0-16.0) g/dl Hct (37.0-47.0) % Neut # (Auto) (1.40-6.50) K/uL Crawford # (Auto) (0.11-0.59) K/uL VBG pH 7.32 L (7.36-7.41) Sodium 133 L (136-145) mmol/L Carbon Dioxide 20 L (21-32) mmol/L Anion Gap 12 H (3-11) BUN 31 H (6-23) mg/dl Creatinine 1.30 H (0.6-1.2) mg/dl BUN/Creatinine Ratio 23.8 H (10-20) Glucose 406 H* (70-99(Fasting)) mg/dl POC Glucose 391 H* 347 H* (70-99) mg/dl Hemoglobin A1c (4.5-5.6) % Osmolality (280-300) mOsm/kg AST (13-39) U/L Troponin I High Sens 84.5 H* D (0-14) pg/ml Total Protein (6.0-8.3) gm/dl Albumin (3.4-5.0) gm/dl Albumin/Globulin Ratio (0.9-2) Triglycerides (0-150) mg/dl Cholesterol (0-200) mg/dl VLDL Cholesterol, Calc (0-30) mg/dl Cholesterol/HDL Ratio (0-5) Urine Appearance (Clear) Ur Specific [place] (1.000-1.030) Urine Protein (Negative) Urine Glucose (UA) (Negative) Urine Ketones (Negative) Urine Blood (Negative) Urine WBC (Auto) (0-5) /hpf U Hyaline Cast (Auto) (0-5) /lpf U Epithel Cells (Auto) (0-5) /lpf Urine Bacteria (Auto) (Negative) 07/29/23 07/29/23 07/29/23 Range/Units 22:29 23:34 Unknown WBC (4.8-10.8) K/ul Hgb (12.0-16.0) g/dl Hct (37.0-47.0) % Neut # (Auto) (1.40-6.50) K/uL Crawford # (Auto) (0.11-0.59) K/uL VBG pH (7.36-7.41) Sodium (136-145) mmol/L Carbon Dioxide (21-32) mmol/L Anion Gap (3-11) BUN (6-23) mg/dl Creatinine (0.6-1.2) mg/dl BUN/Creatinine Ratio (10-20) Glucose (70-99(Fasting)) mg/dl POC Glucose 329 H* 255 H (70-99) mg/dl Hemoglobin A1c (4.5-5.6) % Osmolality (280-300) mOsm/kg AST (13-39) U/L Troponin I High Sens (0-14) pg/ml Total Protein (6.0-8.3) gm/dl Albumin (3.4-5.0) gm/dl Albumin/Globulin Ratio (0.9-2) Triglycerides (0-150) mg/dl Cholesterol (0-200) mg/dl VLDL Cholesterol, Calc (0-30) mg/dl Cholesterol/HDL Ratio (0-5) Urine Appearance Cloudy A (Clear) Ur Specific [place] 1.032 H (1.000-1.030) Urine Protein 4+ H (Negative) Urine Glucose (UA) 3+ H (Negative) Urine Ketones 1+ H (Negative) Urine Blood 1+ H (Negative) Urine WBC (Auto) 10-30 H (0-5) /hpf U Hyaline Cast (Auto) 5-10 H (0-5) /lpf U Epithel Cells (Auto) >30 H (0-5) /lpf Urine Bacteria (Auto) 4+ H (Negative) 07/30/23 07/30/23 07/30/23 Range/Units 00:30 00:33 01:34 WBC (4.8-10.8) K/ul Hgb (12.0-16.0) g/dl Hct (37.0-47.0) % Neut # (Auto) (1.40-6.50) K/uL Crawford # (Auto) (0.11-0.59) K/uL VBG pH (7.36-7.41) Sodium 134 L (136-145) mmol/L Carbon Dioxide (21-32) mmol/L Anion Gap (3-11) BUN 32 H (6-23) mg/dl Creatinine 1.40 H (0.6-1.2) mg/dl BUN/Creatinine Ratio 22.9 H (10-20) Glucose 230 H (70-99(Fasting)) mg/dl POC Glucose 223 H 166 H (70-99) mg/dl Hemoglobin A1c (4.5-5.6) % Osmolality (280-300) mOsm/kg AST (13-39) U/L Troponin I High Sens 87.8 H* (0-14) pg/ml Total Protein (6.0-8.3) gm/dl Albumin (3.4-5.0) gm/dl Albumin/Globulin Ratio (0.9-2) Triglycerides (0-150) mg/dl Cholesterol (0-200) mg/dl VLDL Cholesterol, Calc (0-30) mg/dl Cholesterol/HDL Ratio (0-5) Urine Appearance (Clear) Ur Specific [place] (1.000-1.030) Urine Protein (Negative) Urine Glucose (UA) (Negative) Urine Ketones (Negative) Urine Blood (Negative) Urine WBC (Auto) (0-5) /hpf U Hyaline Cast (Auto) (0-5) /lpf U Epithel Cells (Auto) (0-5) /lpf Urine Bacteria (Auto) (Negative) 07/30/23 07/30/23 07/30/23 Range/Units 02:35 04:37 05:22 WBC (4.8-10.8) K/ul Hgb (12.0-16.0) g/dl Hct (37.0-47.0) % Neut # (Auto) (1.40-6.50) K/uL Crawford # (Auto) (0.11-0.59) K/uL VBG pH (7.36-7.41) Sodium 133 L (136-145) mmol/L Carbon Dioxide (21-32) mmol/L Anion Gap (3-11) BUN 32 H (6-23) mg/dl Creatinine 1.36 H (0.6-1.2) mg/dl BUN/Creatinine Ratio 23.5 H (10-20) Glucose 122 H (70-99(Fasting)) mg/dl POC Glucose 122 H 105 H (70-99) mg/dl Hemoglobin A1c 14.1 H (4.5-5.6) % Osmolality (280-300) mOsm/kg AST 10 L (13-39) U/L Troponin I High Sens (0-14) pg/ml Total Protein 5.7 L D (6.0-8.3) gm/dl Albumin 2.6 L (3.4-5.0) gm/dl Albumin/Globulin Ratio 0.8 L (0.9-2) Triglycerides 211 H (0-150) mg/dl Cholesterol 218 H (0-200) mg/dl VLDL Cholesterol, Calc 42 H (0-30) mg/dl Cholesterol/HDL Ratio 5.2 H (0-5) Urine Appearance (Clear) Ur Specific [place] (1.000-1.030) Urine Protein (Negative) Urine Glucose (UA) (Negative) Urine Ketones (Negative) Urine Blood (Negative) Urine WBC (Auto) (0-5) /hpf U Hyaline Cast (Auto) (0-5) /lpf U Epithel Cells (Auto) (0-5) /lpf Urine Bacteria (Auto) (Negative) 07/30/23 07/30/23 07/30/23 Range/Units 05:28 07:23 08:53 WBC 13.62 H (4.8-10.8) K/ul Hgb 11.5 L D (12.0-16.0) g/dl Hct 34.6 L (37.0-47.0) % Neut # (Auto) 10.56 H (1.40-6.50) K/uL Crawford # (Auto) 1.03 H (0.11-0.59) K/uL VBG pH 7.33 L (7.36-7.41) Sodium 132 L (136-145) mmol/L Carbon Dioxide (21-32) mmol/L Anion Gap (3-11) BUN 31 H (6-23) mg/dl Creatinine 1.37 H (0.6-1.2) mg/dl BUN/Creatinine Ratio 22.6 H (10-20) Glucose 235 H (70-99(Fasting)) mg/dl POC Glucose 150 H (70-99) mg/dl Hemoglobin A1c (4.5-5.6) % Osmolality (280-300) mOsm/kg AST (13-39) U/L Troponin I High Sens (0-14) pg/ml Total Protein (6.0-8.3) gm/dl Albumin (3.4-5.0) gm/dl Albumin/Globulin Ratio (0.9-2) Triglycerides (0-150) mg/dl Cholesterol (0-200) mg/dl VLDL Cholesterol, Calc (0-30) mg/dl Cholesterol/HDL Ratio (0-5) Urine Appearance (Clear) Ur Specific [place] (1.000-1.030) Urine Protein (Negative) Urine Glucose (UA) (Negative) Urine Ketones (Negative) Urine Blood (Negative) Urine WBC (Auto) (0-5) /hpf U Hyaline Cast (Auto) (0-5) /lpf U Epithel Cells (Auto) (0-5) /lpf Urine Bacteria (Auto) (Negative) 07/30/23 07/30/23 Range/Units 11:00 13:08 WBC (4.8-10.8) K/ul Hgb (12.0-16.0) g/dl Hct (37.0-47.0) % Neut # (Auto) (1.40-6.50) K/uL Crawford # (Auto) (0.11-0.59) K/uL VBG pH (7.36-7.41) Sodium (136-145) mmol/L Carbon Dioxide (21-32) mmol/L Anion Gap (3-11) BUN (6-23) mg/dl Creatinine (0.6-1.2) mg/dl BUN/Creatinine Ratio (10-20) Glucose (70-99(Fasting)) mg/dl POC Glucose 220 H 224 H (70-99) mg/dl Hemoglobin A1c (4.5-5.6) % Osmolality (280-300) mOsm/kg AST (13-39) U/L Troponin I High Sens (0-14) pg/ml Total Protein (6.0-8.3) gm/dl Albumin (3.4-5.0) gm/dl Albumin/Globulin Ratio (0.9-2) Triglycerides (0-150) mg/dl Cholesterol (0-200) mg/dl VLDL Cholesterol, Calc (0-30) mg/dl Cholesterol/HDL Ratio (0-5) Urine Appearance (Clear) Ur Specific [place] (1.000-1.030) Urine Protein (Negative) Urine Glucose (UA) (Negative) Urine Ketones (Negative) Urine Blood (Negative) Urine WBC (Auto) (0-5) /hpf U Hyaline Cast (Auto) (0-5) /lpf U Epithel Cells (Auto) (0-5) /lpf Urine Bacteria (Auto) (Negative) Diagnostic Findings Foot X-Ray 07/29/23 16:36 XR foot LT min 3V routine CLINICAL HISTORY: foot wound left TECHNIQUE: 3 views of the left foot were obtained. Comparison: None available at the time of this dictation. FINDINGS: No fractures are present. Degenerative changes are seen. Vascular calcifications are noted. IMPRESSION: Degenerative changes without evidence of acute fracture. ACT 112: Negative or not required by law. Electronically signed by: Stephane Leyva M.D. 07/29/2023 4:56 PM Brain MRI 07/29/23 17:31 CR Exam(s): MRI HEAD Without Contrast EXAM: MR Head Without Intravenous Contrast CLINICAL HISTORY: Reason for exam: r/o stroke. TECHNIQUE: Magnetic resonance images of the head/brain without intravenous contrast in multiple planes. COMPARISON: CT head 07/29/23 FINDINGS: There is a 7 mm focus of diffusion restriction in the periventricular white matter of the right occipital lobe (series 5, image 14). There is a 10 mm focus of diffusion restriction within the left occipital lobe (series 5, image 12). No additional foci of diffusion restriction are present. There is no evidence of acute intracranial hemorrhage. There is no mass-effect or midline shift. Parenchymal volume appears normal for age. There is no hydrocephalus. There is no significant white matter disease burden. There is mild mucosal thickening in the right frontal sinus and bilateral ethmoids. A small retention cyst is present in the sphenoid sinus. There is a mild effusion at the left mastoid tip. IMPRESSION: Small acute infarcts in both occipital lobes. Consider embolic infarcts. Communications: Call Doctor Stroke Electronically signed by: Keren Solano M.D. 07/29/23 19:[address] 07/29/23 17:35 CT head/brain wo con CLINICAL HISTORY: r/o stroke Technique: Contiguous axial CT images of the head were acquired from the base of the skull to the vertex without intravenous contrast administration. Images were viewed in brain, subdural and bone windows. Automated dose lowering techniques and/or adjustment according to patient size were utilized for this exam. Comparison: Comparison is made to CT head 07/29/2023 Findings: The ventricles, basal cisterns, and cerebral sulci are normal. There is no acute intracranial hemorrhage or evidence of acute territorial infarction. Neither mass effect, shift of the midline structures, nor abnormal extra-axial fluid collections are shown. Imaged portions of the paranasal sinuses and mastoid air cells are clear. The orbits appear normal. There are no acute fractures of the calvaria or scalp swelling. Impression: No acute intracranial hemorrhage, no evidence of acute territorial infarction or other acute intracranial disease process. ACT 112: Negative or not required by law. Electronically signed by: Stephane Leyva M.D. 07/29/2023 6:08 PM Carotid Doppler Study 07/29/23 18:37 CAROTID ARTERY ULTRASOUND CLINICAL HISTORY: stroke symptoms COMPARISON STUDY: None. TECHNIQUE: Real-time, grayscale, and color Doppler sonography of the carotid and vertebral arteries was performed. Images were viewed in the transverse and longitudinal planes. FINDINGS: This exam is mildly compromised by suboptimal penetration. There is mild to moderate atherosclerotic plaque. Velocity measurements are listed below. COMMON CAROTID PEAK SYSTOLIC VELOCITY (CM/S): RIGHT 52 LEFT 97 ICA PEAK SYSTOLIC VELOCITY (CM/S): RIGHT 72 LEFT 115 Systolic ratios within the internal to common carotid arteries were normal. Antegrade flow is seen in the vertebral arteries. The external carotid arteries are patent. IMPRESSION: 1. Mild to moderate atherosclerotic plaque. No evidence for a hemodynamically significant stenosis. 2. Exam mildly compromised by suboptimal penetration. ACT 112: Negative or not required by law. Electronically signed by: Bruce Cai M.D. 07/30/2023 8:53 AM Medications Administered Home Medications Medication Instructions Recorded Confirmed Last Taken Trulicity See Rx Instructions .Route .COMPLEX 07/29/23 07/29/23 Unknown amlodipine 10 mg tablet 10 mg PO DAILY 07/29/23 07/29/23 Unknown aspirin 325 mg tablet 325 mg PO DAILY 07/29/23 07/29/23 Unknown escitalopram oxalate 20 mg tablet 20 mg PO DAILY 07/29/23 07/29/23 Unknown hydralazine 100 mg tablet 100 mg PO BID 07/29/23 07/29/23 Unknown insulin detemir U-100 100 unit/mL 45 unit subcut BID 07/29/23 07/29/23 Unknown (3 mL) subcutaneous pen (Levemir FlexPen) lisinopril 2.5 mg tablet 2.5 mg PO DAILY 07/29/23 07/29/23 Unknown metformin 500 mg tablet 500 mg PO BID 07/29/23 07/29/23 Unknown metoprolol succinate 100 mg 100 mg PO QAM 07/29/23 07/29/23 Unknown tablet,extended release 24 hr rosuvastatin 10 mg tablet 10 mg PO DAILY 07/29/23 07/29/23 Unknown sildenafil (pulm.hypertension) 20 20 mg PO TID 07/29/23 07/29/23 Unknown mg tablet spironolactone 25 mg tablet 25 mg PO DAILY 07/29/23 07/29/23 Unknown torsemide 20 mg tablet 20 mg PO DAILY 07/29/23 07/29/23 Unknown Active Medications Generic Name Dose Route Start Last Admin Trade Name Herbert PRN Reason Stop Dose Admin Aspirin 325 mg 07/30/23 09:00 07/30/23 09:43 Aspirin 325 Mg Ectab PO 08/29/23 08:59 325 mg DAILY ZOE Administration Escitalopram Oxalate 20 mg 07/30/23 09:00 07/30/23 09:43 Escitalopram Oxalate 20 Mg Tab PO 08/29/23 08:59 20 mg DAILY ZOE Administration Insulin Human Regular 250 250 mls @ 2.4 mls/hr 07/29/23 17:30 07/30/23 11:18 units/ Sodium Chloride IV 07/30/23 16:29 2.4 units/hr .Q24H ZOE 2.4 mls/hr Titration Protocol 2.4 UNITS/HR Ceftriaxone Sodium 2,000 mg/ 50 mls @ 100 mls/hr 07/29/23 18:00 07/29/23 22:40 Dextrose IV 08/05/23 17:59 Infused Q24H ZOE Infusion Protocol Potassium Chloride/Sodium Chloride 20 meq in 1,000 mls @ 125 mls/hr 07/29/23 22:30 07/30/23 05:53 1/2 Nss + 20meq Kcl 1000ml IV 08/28/23 22:29 125 mls/hr .Q8H ZOE Administration Insulin Aspart 0 units 07/29/23 18:00 07/30/23 13:28 Insulin Aspart Per Unit Charge SC 07/30/23 16:29 12 units ACHS ZOE Administration Rosuvastatin Calcium 20 mg 07/30/23 09:00 07/30/23 09:42 Rosuvastatin Calcium 20 Mg Tab PO 08/29/23 08:59 20 mg QAM ZOE Administration
[2023-07-30] MEDS: DC IV INSULIN INFUSION 1 EA DEVI ONE (14:07)
--- NOTE | 2023-07-30 14:38 | Pharmacy Report ---
- Date of Service July 30, 2023 - Pharmacy CVA/TIA Medication Review Medications to Prevent Stroke handout has been added to the patients discharge packet. Antiplatelet(s) * aspirin 325mg daily Cholesterol * High intensity statin: rosuvastatin 20 mg daily DVT Prophylaxis * Heparin SQ Therapeutic Anticoagulation * No history of Afib/Aflutter noted Type 2 Diabetes * Patient has T2DM and patient is prescribed dulaglutide
--- NOTE | 2023-07-30 14:52 | Pharmacy Report ---
Pharmacy Glycemic Short Note 2 - Date of Service July 30, 2023 - Glycemic Short BSG Results (Last 24 hours): 07/29/23 07/29/23 07/29/23 16:20 17:44 19:53 Glucose 416 H* POC Glucose 365 H* 422 H* 07/29/23 07/29/23 07/29/23 20:31 20:57 21:34 Glucose 406 H* POC Glucose 391 H* 347 H* 07/29/23 07/29/23 07/30/23 22:29 23:34 00:30 Glucose POC Glucose 329 H* 255 H 223 H 07/30/23 07/30/23 07/30/23 00:33 01:34 02:35 Glucose 230 H POC Glucose 166 H 122 H 07/30/23 07/30/23 07/30/23 03:35 04:37 05:22 Glucose 122 H POC Glucose 90 105 H 07/30/23 07/30/23 07/30/23 07:23 08:53 11:00 Glucose 235 H POC Glucose 150 H 220 H 07/30/23 13:08 Glucose POC Glucose 224 H OUTPATIENT ANTIDIABETIC REGIMEN: * metformin 500mg BID * Trulicity (unsure of dose) QSunday * Levemir 45 units BID * HbA1c 14.1% (07/30/23) previously 13.3 (01/17/23) ASSESSMENT: * Maricel was admitted yesterday evening with a headache and subsequently found to have a CVA as well as likely HHS. She has a history of type 2 diabetes. Pharmacy has been consulted to assist with glycemic management. * BSG on admission 574, multiple regular IV insulin boluses yesterday did not correct the hyperglycemia so she was subsequently started on an insulin infusion. * The insulin infusion was stopped overnight and then resumed this AM to help transition to SQ insulin. As of this AM she used approximately 65 units of insulin overnight in 8 hours. Would estimated basal needs at approximately 90- 100 units daily which coincides with home regimen fo 45 units twice daily. Approximately half estimated basal needs given this AM, scale added at bedtime based on BSG for the remaining basal dosage. * Insulin drip stopped this afternoon and Novolog initiated based on home basal dosage and estimated daily drip usage per the SQ insulin dose calculator starting with dinner. Discussed plan with Dr. Casillas this AM. * She is only IV ceftriaxone and doxycycline. She was on IV fluids of 1/2NS +20KCl which was just discontinued. PLAN FOR INPATIENT GLYCEMIC CONTROL: * Hold outpatient oral diabetes medications * Basal insulin * Lantus 40 units SQ daily * Lantus 30-50 units SQ HS * Bolus insulin * NovoLog per scale ACHS or Q6hrs while NPO * Goal Range: Low 110 mg/dL - High 140 mg/dL * Correction Factor: 10 mg/dL/unit * Nutritional / Prandial insulin per carb ratio of 1 unit per 3 grams CHO consumed
[2023-07-30] MEDS: SILDENAFIL CITRATE 20 MG TABLET PO SCH (16:27)
[2023-07-30] MEDS: HEPARIN SOD 5,000 UNIT/0.5 ML VIAL SQ SCH (16:31)
[2023-07-30] MEDS: INSULIN ASPART PER UNIT CHARGE SC SCH (18:28)
--- NOTE | 2023-07-30 19:03 | CT Scan Report ---
CT ANGIOGRAM OF THE BRAIN COMBO; CT ANGIOGRAM OF THE NECK CLINICAL HISTORY: Stroke COMPARISON STUDY: CT and MRI of the brain dated 07/29/2023. Carotid artery ultrasound dated 07/29/2023 . TECHNIQUE: Unenhanced axial CT scan of the brain is performed. Subsequently, following the IV adminis tration of 118 of Optiray 320, CT angiogram of the head and neck was performed from the aortic arch t o the vertex. Images are reviewed in the axial, sagittal, and coronal planes. 3-D MIPS images are cre ated and assessed. IV contrast was administered without complication. All measurements were calculate d based on NASCET criteria. A dose lowering technique was utilized adhering to the principles of ALA RA. CT DOSE: 1074.9 mGy.cm FINDINGS: Brain parenchyma: There is age-related involutional change noting mild subcortical and periventricula r microangiopathic disease. There is no hemorrhage, mass effect, or evidence of acute territorial isc hemia by CT criteria. There is no evidence of enhancing mass lesion on the angiogram phase images. Th e ventricles, sulci, and cisterns are prominent secondary to involutional change. [place]-white matter d ifferentiation is preserved. No extra-axial fluid collection is seen. Thoracic aorta: Visualized portions of the thoracic aorta are normal in caliber. The aortic arch demo nstrates standard 3-vessel anatomy. Right carotid arterial system: The right common carotid artery is widely patent, as are the right int ernal and external carotid arteries. Calcified plaque is seen in the carotid bulb. Left carotid arterial system: The left common carotid artery is widely patent, as are the left internal security manager al and external carotid arteries. Calcified plaque is noted in the carotid bulb. Vertebral arteries: The vertebral arteries are widely patent bilaterally noting mild left-sided domin ance. Subclavian arteries: Widely patent bilaterally. Intracranial vasculature: There is atherosclerotic calcification of the cavernous carotid and vertebr al arteries. The internal carotid arteries are patent at the skull base, as are the anterior and midd le cerebral arteries bilaterally. The vertebrobasilar system and posterior cerebral arteries are wide ly patent. The left vertebral artery is dominant. There is a left posterior communicating artery. The re is origin of the right posterior cerebral artery. There is no aneurysm, high-grade stenosis, or focal vessel cut off seen throughout the intracranial circulation. Jugular veins: Patent bilaterally. Dural sinuses: Patent. Lung apices: There is a 12 mm airspace opacity at the left apex seen on image #72. The visualized upp er lobe lung parenchyma is otherwise Clear. Soft tissues: The visualized pharyngeal soft tissues are normal in appearance noting angiographic pha se technique. The oropharyngeal airway appears widely patent. The thyroid gland is mildly enlarged an d heterogeneous. The salivary glands are normal in appearance. No cervical lymphadenopathy is seen. Skeletal structures: The calvarium appears intact. The cervical spine is maintained noting mild multi level spondylosis. Orbits: The bony orbits are intact. Orbital contents are normal as visualized. Sinuses and mastoids: There is trace mucosal thickening within the maxillary antra and ethmoid sinuse s. A subcentimeter retention cyst is noted in the left sphenoid sinus. Moderate mucosal thickening is seen in the right frontal sinus. The mastoid air cells are well pneumatized. IMPRESSION: 1. There is no hemorrhage, mass effect, or evidence of acute territorial ischemia by CT criteria. Tin y foci of acute ischemia seen by MRI are not apparent on CT. 2. Unremarkable CT angiogram of the brain. 3. Unremarkable CT angiogram of the neck. ACT 112: Negative or not required by law. Electronically signed by: Tomi Miller M.D. 07/30/2023 7:01 PM
[2023-07-30] MEDS: OPTIRAY 320 125ml IV ONE (19:27)
[2023-07-30] MEDS: LANTUS PER UNIT CHARGE SC SCH (20:30)
[2023-07-30] MEDS: DOXYCYCLINE HYCLATE 100 MG CAP PO SCH (20:42)
[2023-07-31] MEDS ORDERED: INSULIN ASPART PER UNIT CHARGE SC SCH
--- NOTE | 2023-07-31 05:30 | Electrocardiogram Report ---
Test Reason : Blood Pressure : / mmHG Vent. Rate : 070 BPM Atrial Rate : 070 BPM P-R Int : 150 ms QRS Dur : 118 ms QT Int : 430 ms P-R-T Axes : 048 -35 037 degrees QTc Int : 464 ms Normal sinus rhythm Left axis deviation Left ventricular hypertrophy with QRS widening Abnormal ECG When compared with ECG of 29-JUL-2023 11:15, No significant change was found Confirmed by Trell Amaya ([id number]) on 07/31/2023 5:29:49 AM Referred By: REFERRED SELF Confirmed By:Trell Amaya
[2023-07-31] MEDS ORDERED: GLUCOSE 40% GEL 15 GM TUBE PO PRN (08:00)
[2023-07-31] MEDS ORDERED: GLUCOSE 10 TAB/TUBE PO PRN (08:00)
[2023-07-31] MEDS ORDERED: DEXTROSE 50% 50 ML SYRINGE IV PRN (08:00)
[2023-07-31] MEDS ORDERED: GLUCAGON FOR INJ 1 MG VIAL IM PRN (08:00)
[2023-07-31 08:15] LABS: Hematocrit (blood only) 38.3 % (37.0-47.0); Hemoglobin 12.3 g/dl (12.0-16.0); Mean Corpuscular Hemoglobin 26.6 pg (25.0-34.0); Mean Corpuscular Hgb Conc 32.1 g/dL (32.0-36.0); Mean Corpuscular Volume 82.9 fL (80.0-100.0); Mean Platelet Volume 9.9 fL (9.4-12.4); Platelet Count 313 K/uL (130-400); RDW Coefficient of Variation 13.9 % (11.5-14.5); RDW Standard Deviation 41.7 fL (36.4-46.3); Red Blood Count 4.62 M/uL (4.20-5.40); White Blood Count 10.19 K/ul (4.8-10.8)
[2023-07-31 08:32] LABS: BUN Creatinine Ratio 23.7 (10-20); Calcium 9.3 mg/dl (8.6-10.3); Creatinine Clr Calc Pharmacy 48.8 ml/min; Est GFR (African American) 47.6 ml/min; Est GFR (Non-African American) 41.1 ml/min; Potassium 4.7 mmol/L (3.5-5.1)
[2023-07-31] MEDS: LANTUS PER UNIT CHARGE SC SCH ×2 (08:42→17:16)
[2023-07-31] MEDS: SPIRONOLACTONE 25 MG TAB PO SCH (08:44)
[2023-07-31] MEDS: TORSEMIDE 20 MG TAB PO SCH (08:45)
[2023-07-31] MEDS: lisinopril 2.5 MG TAB PO SCH (10:24)
[2023-07-31] MEDS: amLODIPine BESYLATE 5 MG TAB PO SCH (10:25)
--- NOTE | 2023-07-31 10:30 | Pharmacy Report ---
Pharmacy Glycemic Short Note 2 - Date of Service July 31, 2023 - Glycemic Short BSG Results (Last 24 hours): 07/30/23 07/30/23 07/30/23 11:00 13:08 16:37 Glucose POC Glucose 220 H 224 H 149 H 07/30/23 07/31/23 07/31/23 20:09 06:59 07:27 Glucose 75 POC Glucose 132 H 82 OUTPATIENT ANTIDIABETIC REGIMEN: * metformin 500mg BID * Trulicity (unsure of dose) QSunday * Levemir 45 units BID * HbA1c 14.1% (07/30/23) previously 13.3 (01/17/23) ASSESSMENT: 07/31 * Patient received total of 116 units of insulin yesterday + insulin drip (running part of the day) * Insulin drip d/c yesterday afternoon. Fasting BSG 82 mg/dL - will scale back on basal insulin ~25% this morning, and will utilize scale for HS. Estimated basal needs likely closer to ~60 units/day * Loosened CF/CR this AM 07/30 * Maricel was admitted yesterday evening with a headache and subsequently found to have a CVA as well as likely HHS. She has a history of type 2 diabetes. Pharmacy has been consulted to assist with glycemic management. * BSG on admission 574, multiple regular IV insulin boluses yesterday did not correct the hyperglycemia so she was subsequently started on an insulin infusion. * The insulin infusion was stopped overnight and then resumed this AM to help transition to SQ insulin. As of this AM she used approximately 65 units of insulin overnight in 8 hours. Would estimated basal needs at approximately 90- 100 units daily which coincides with home regimen fo 45 units twice daily. Approximately half estimated basal needs given this AM, scale added at bedtime based on BSG for the remaining basal dosage. * Insulin drip stopped this afternoon and Novolog initiated based on home basal dosage and estimated daily drip usage per the SQ insulin dose calculator starting with dinner. Discussed plan with Dr. Casillas this AM. * She is only IV ceftriaxone and doxycycline. She was on IV fluids of 1/2NS +20KCl which was just discontinued. PLAN FOR INPATIENT GLYCEMIC CONTROL: * Hold outpatient oral diabetes medications * Basal insulin * Lantus 30 units SQ daily * Lantus 20-30 units SQ HS * Bolus insulin * NovoLog per scale ACHS or Q6hrs while NPO * Goal Range: Low 110 mg/dL - High 140 mg/dL * Correction Factor: 15 mg/dL/unit * Nutritional / Prandial insulin per carb ratio of 1 unit per 5 grams CHO consumed
--- NOTE | 2023-07-31 11:07 | Hospitalist Progress Note ---
Date of Service July 31, 2023 Assessment & Plan (1) CVA (cerebral vascular accident): (2) Weakness: (3) Stroke-like symptoms: Plan: 63-year-old female with PMH uncontrolled DM II, HTN, dyslipidemia, CAD, H/O NC s/p stents, hypothyroidism, RADHA, nocturnal hypoxia, pulmonary hypertension, chronic diastolic heart failure, depression, anxiety, CKD III-IV presented to ER with c/o weakness and fall the morning of admission. Denied hitting head, dizziness, CP, SOB. Patient with reported left sided headache and without focal deficits upon initial exam. Had also reported left sided facial paresthesias the previous day In ER patient found to be hypertensive with BP: 226/94, and hyperglycemic with glucose of 574. She was given Tylenol, two doses of hydralazine 10mg IV with repeat BP 166/69. Given total 15 units of insulin with repeat BSG 365. Initial CT scan head without acute findings. Initial exam upon admission patient without focal deficits and normal speech. Weakness and Headache were initially thought possible to hypertensive encephalopathy, hyperglycemia DDX: TIA, CVA, atypical migraine, hypertensive encephalopathy On day of admission, ER nurse at 17:03 noted that patient having slurred speech and word finding difficulties. Repeat BP: 199/110. BSG high 300's. Some reported decreased sensation left side of face, +slight right sided mouth drooping (appears similar to initial presentation) +expressive aphasia with some slurred speech. Alert and oriented x 3. EOMs intact. No nystagmus, Hearing grossly intact, soft palate elevates symmetrically, shoulder shrug intact, tongue is midline, normal movement, no fasciculations, strength 5/5 bilateral upper extremities, chronically unable to lift legs, pedal pushes and pulls intact bilaterally. Stroke alert called Repeat CT head No acute intracranial hemorrhage, no evidence of acute territorial infarction or other acute intracranial disease process. MRI brain showed small acute infarcts in both occipital lobes Carotid doppler noted mild to mod atherosclerotic plaque. No evidence for hemodynamically significant stenosis Hence patient has Acute bilateral occipital infarcts CREDIT ASSISTANT/PT/OT HbA1c is 14.1 Lipid panel noted total cholesterol of 218, LDL 134, HDL 42, Trig 211 CTA head and neck were unremarkable TTE noted EF 60-65%, mod conc LVH, G 1 DD, mod dil LA, mild to mod MR, trace AR, no evidence of AST, trace TR, RVSP 40-50mmHg Reviewed tele. No Afib noted so far Home rosuvastatin increased to 20mg Card eval and recs noted I discussed findings with Neurologist today. Concern for possible embolic nature of infarct. Patient may need anticoagulation However, considering her fall risk and visual issues, will defer anticoag until arrhythmia such as Afib/Aflutter is confirmed Patient needs zio patch testing or loop on discharge (4) Hypertensive urgency: Plan: History of medication noncompliance In ER patient found to be hypertensive with BP: 226/94, and hyperglycemic with glucose of 574. She was given Tylenol, two doses of hydralazine 10mg IV with repeat BP 166/69 Nitropaste applied. Initially home medications of amlodipine, lisinopril, metoprolol succinate given Prior to stroke alert called in ER Home antihypertensives have all been resumed today Monitor BP (5) Hyperglycemia: (6) Diabetes mellitus, type II: Plan: History uncontrolled diabetes. History of med occasion noncompliance A1c: 13.3 on 01/17/2023 In ER glucose of 574. Given total 15 units of insulin with repeat BSG 365.VBG: pH: 7.34, pCO2: 50, HCO3 27. Corrected sodium 138 for glucose 574, osmolality: 319 Neurological symptoms present on admission likely from CVA not HHS HbA1c is 14.1 Lipid panel noted total cholesterol of 218, LDL 134, HDL 42, Trig 211 Hence patient has poorly controlled DM and hyperlipidemia as well She reported she has not been taking her insulin for a while due to problems seeing and poor hand/finger dexterity Provided DM education Considering visual problems, may benefit from daily long acting insulin so that family can help administer DM educator recs noted Discussed with Pharm about plans regarding insulin on discharge (7) Elevated troponin: (8) Non-ST elevation NC (NSTEMI): (9) CAD (coronary artery disease): Plan: Reported history of CAD, NC s/p stents ?in 2019 in [place], [place] Troponin 96.8--> 100-->> 87. EKG sinus rhythm without acute ST changes noted Denies chest pain, shortness of breath Possible demand ischemia TTE as above Continue aspirin, metoprolol succinate, rosuvastatin Card eval appreciated (10) Foot ulcer, left: Plan: Diabetic foot ulcer left heel Continue Rocephin, doxycycline Wound nurse recommended getting Podiatry and Orthotics eval (11) Recent URI: Plan: Recent URI symptoms with reported improvement [employer] respiratory panel +coronavirus CXR: No acute infiltrate 92% on room air ? Chronic respiratory failure per patient's [id number]. She reports previously patient was prescribed 2 L oxygen to use continuously however patient previously noncompliant so oxygen returned Currently on room air (12) CKD (chronic kidney disease), stage III: Plan: CKD III-IV per outpatient records BUN: 30, Cr: 1.29. Cr: 1.0 on 03/16/2023, 1.9 on 01/17/2023 Monitor renal functions, avoid nephrotoxic agents when possible (13) Chronic diastolic CHF (congestive heart failure): Plan: Continue home torsemide, spironolactone (14) Pulmonary hypertension: Plan: On sildenafil (15) Anxiety and depression: Plan: Denies suicidal ideations Medication noncompliance Continue escitalopram (16) HLD (hyperlipidemia): Plan: Rosuvastatin increased as above (17) Obesity, morbid, BMI 40.0-49.9: Plan: BMI: 47 Lifestyle modifications should be addressed when appropriate during hospital course (18) Hypothyroidism: Plan: Reported history hypothyroidism Not on medications TSH: 2.2 Urine culture growing Klebsiella Possible UTI Continue Ceftriaxone patient is currently getting Abnormal CT finding As additional impression point, there is a 12 mm left apical opacity. This is indeterminant and may be inflammatory. A follow-up chest CT in 2-3 months time is recommended to document resolution. DVT Prophylaxis Hep sq DNR/DNI as per discussion with pt Previously seen by Dr Webb, as was getting established for local care I called son and updated him on findings and plans I spent a total of 55 minutes reviewing notes, outpatient records, labs, medication, coordinating, documenting and providing care for this patient excluding time spent in the performance of separately billed services. Admission and Anticipated Discharge Date Admission Date: July 29, 2023 Subjective Patient seen and examined Denied any new complaints Has chronic visual problems Reports generalized weakness. Ambulates with walker Has chronic peripheral neuropathy in feet. Denied cough, chest pain, SOB, nausea, vomiting, abd pain, diarrhea Denied dysuria, freq, urgency Has left foot wound Physical Exam Constitutional: + well hydrated; no acute distress Eyes: PERRL. +catarract ENMT: external ear and nose normal, oropharynx normal Respiratory: normal respiratory effort, lungs clear to auscultation Cardiovascular: Rate/Rhythm: regular rate and regular rhythm S1 S2 Gastrointestinal (Abdomen): normal bowel sounds, soft, nontender, no hepatosplenomegaly Musculoskeletal: Left heel wound Neurologic: EOMI, power equal in UE. Reduced in LE +sensory deficits in feet (chronic) Psychiatric: A+Ox3, euthymic affect Results & Data Results & Data Vital Signs (Past 12 Hours) Vital Signs Temp Pulse Resp BP Pulse Ox O2 Del Method 07/31/23 07:21 36.7 C 74 16 188/79 H 96 Room Air 07/31/23 02:42 36.4 C L 62 16 127/72 97 Room Air 07/30/23 23:08 Room Air Laboratory Results Abnormal lab results 07/30/23 07/30/23 07/31/23 Range/Units 16:37 20:09 06:59 Sodium 134 L (136-145) mmol/L BUN 32 H (6-23) mg/dl Creatinine 1.35 H (0.6-1.2) mg/dl BUN/Creatinine Ratio 23.7 H (10-20) POC Glucose 149 H 132 H (70-99) mg/dl
--- NOTE | 2023-07-31 11:18 | Cardiology Progress Note ---
Date of Service July 31, 2023 Assessment & Plan (1) CVA (cerebral vascular accident): (2) Recent URI: (3) Elevated troponin: (4) Hypertensive urgency: (5) CKD (chronic kidney disease), stage III: (6) Chronic diastolic CHF (congestive heart failure): (7) CAD (coronary artery disease): (8) HLD (hyperlipidemia): Plan Cerebrovascular accident. MRI with small acute infarcts in both occipital lobes. Carotid duplex with mild to moderate atherosclerotic plaque, without evidence of hemodynamically significant stenosis. Continuous case monitor without atrial fibrillation though clinical concern is high noted given underlying medical issues, resting echocardiography findings, left atrial enlargement. Noncompliance with medications noted prior to arrival. Continue case monitor while hospitalized. Recommend outpatient 14-day ZIO monitor followed by consideration for loop recorder implantation pending inpatient workup and ZIO findings. Elevated troponin. Patient asymptomatic. EKG without acute change. Resting echocardiography with preserved LV systolic function, without wall motion abnormality. Patient with known ASCVD. No evidence of an acute coronary syndrome. Elevated troponin appears to be multifactorial, due to critical illness, LVH, acute stroke, chronic kidney disease, etc. Recommend continuation of appropriate medical management, guideline directed medical therapies - metoprolol succinate, lisinopril, aspirin, and statin. Diastolic congestive heart failure. Volume status appears acceptable. Continue prior to arrival oral diuretic regimen. Hypertension. Hypertensive urgency noted on admission, significantly improved at present. It is difficult to determine what antihypertensive agents patient has received thus far. Continue beta-leidy therapy without interruption. Dyslipidemia. LDL goal less than 55 mg/dL. Agree with titration of rosuvastatin to 20 mg/day. Patient will likely require further titration of rosuvastatin followed by the addition of ezetimibe. 07/31/2023 Appears neurologically stable. No evidence of atrial arrhythmias. Blood pressure now trending higher with home medications on hold Would resume metoprolol succinate. Patient previously on 100 mg/day we will begin with reduced dose of 50 mg/day but would not stop. May need upward titration if blood pressures trend lower would reduce amlodipine No atrial arrhythmias discerned though patient at risk for such Recommendations as above Admission and Anticipated Discharge Date Admission Date: July 29, 2023 Subjective Patient seen and examined, chart, medications, telemetry reviewed. Seems brighter today, sitting out of bed in chair. Denies any acute complaints but does note some continued difficulty with occasional word choosing Notes no weakness arm or leg Has ambulated with assist today Telemetry without arrhythmias Review of Systems Review of Systems: All systems reviewed & are unremarkable except as noted in Subjective Physical Exam Constitutional: no acute distress Eyes: PERRL, conjunctivae normal, anicteric sclerae ENMT: Mouth: + poor dentition Neck: trachea midline, no thyromegaly Respiratory: Auscultation: + diminished lung sounds Cardiovascular: RRR, no murmur, no edema Vessels: no JVD Extremities: + edema (Trace with lymphedematous changes) Gastrointestinal (Abdomen): normal bowel sounds, soft, nontender, no hepatosplenomegaly Results & Data Vital Signs (Past 12 Hours) Vital Signs Temp Pulse Resp BP Pulse Ox O2 Del Method 07/31/23 07:21 36.7 C 74 16 188/79 H 96 Room Air 07/31/23 02:42 36.4 C L 62 16 127/72 97 Room Air Laboratory Results Laboratory Results - last 24 hr 07/30/23 07/30/23 07/30/23 09:01 13:08 16:37 WBC RBC Hgb Hct MCV MCH MCHC RDW Std Deviation RDW Coeff of Sven Plt Count MPV Sodium Potassium Chloride Carbon Dioxide Anion Gap BUN Creatinine Est Cr Clr Drug Dosing Est GFR ( Amer) Est GFR (Non-Af Amer) BUN/Creatinine Ratio Glucose POC Glucose 224 H 149 H Calcium Procalcitonin 0.05 07/30/23 07/31/23 07/31/23 20:09 06:59 07:27 WBC 10.19 RBC 4.62 Hgb 12.3 Hct 38.3 MCV 82.9 MCH 26.6 MCHC 32.1 RDW Std Deviation 41.7 RDW Coeff of Sven 13.9 Plt Count 313 MPV 9.9 Sodium 134 L Potassium 4.7 Chloride 104 Carbon Dioxide 23 Anion Gap 7 BUN 32 H Creatinine 1.35 H Est Cr Clr Drug Dosing 48.8 Est GFR ( Amer) 47.6 Est GFR (Non-Af Amer) 41.1 BUN/Creatinine Ratio 23.7 H Glucose 75 POC Glucose 132 H 82 Calcium 9.3 Procalcitonin
[2023-07-31] MEDS: NYSTATIN CR 15 GM TUBE EXT SCH (13:07)
[2023-07-31] MEDS: AMMONIUM LACTATE 12% LOTION 225 GM BTL EXT PRN (13:07)
[2023-07-31] MEDS: METOPROLOL SUCC 50MG EXT REL TAB PO SCH (13:07)
--- NOTE | 2023-07-31 15:08 | Communication Note ---
Date of Service: July 31, 2023 CTA head and neck reviewed, depicting very little evidence of ICAD prompting further concern for a cardioembolic etiology to bilateral occipital lobe isc hemic strokes She has been seen by cardiology with continued concern for possible atrial arrhythmia She is undergoing continuous telemetry while hospitalized She has history of cataracts therefore limited visual acuity and concern for fall risk coupled with chronic weakness/decreased activity level Without overt evidence of arrhythmia at this time recommend continue antiplatelet and statin therapy Agree with ophthalmology referral and continued follow with cardiology Will benefit from snf cardiac monitoring at discharge Communicated directly with primary/hospitalist team Dr. Casillas
[2023-07-31] MEDS: INSULIN ASPART PER UNIT CHARGE SC SCH (17:16)
[2023-07-31] MEDS: hydrALAZINE TAB 50 MG TAB PO SCH (19:31)
[2023-07-31] MEDS ORDERED: LANTUS PER UNIT CHARGE SC SCH (21:00)
--- NOTE | 2023-07-31 22:20 | Orthopedic Consultation ---
Date of Consultation July 31, 2023 Assessment & Plan (1) Foot ulcer, left: Patient seen and evaluated at bedside in E217-1. A thorough evaluation of left plantar heel wound was done in detail. No immediate signs or symptoms of infection were observed or reported. Wound does show non viable tissue with heavy hyperkeratotic tissue periwound. We did discuss bedside debridement. Off loading is an import part of this Patient's management. Manners in which pressure reduction could be achieved were investigated and initiated. Waffle boots ordered to bedside. Thank you for allowing me to participate in the care of this Patient. Will continue to follow while in house. (2) Diabetes mellitus, type II: History of Present Illness Attending Physician: Maxine Casillas MD History of Present Illness Patient is 63-year-old female seen at bedside for left diabetic foot ulcer. Patient has a past medical history significant for uncontrolled DM II, HTN, dyslipidemia, CAD, H/O [place] s/p stents, hypothyroidism, RADHA, nocturnal hypoxia, pulmonary hypertension, chronic diastolic heart failure, depression, anxiety, CKD III-IV. Madhav presented to [facility] Emergency Department on 07/29/23 with complaint of weakness after fall, Patient also reported left sided facial paresthesias the day before. While in emergency department patient was found to be hypertensive with BP: 226/94, and hyperglycemic with glucose of 574. Allergies Allergy/AdvReac Type Severity Reaction Status Date / Time No Known Allergies Allergy Unverified 07/29/23 15:45 Home Medications Medication Instructions Recorded Confirmed Type Trulicity See Rx Instructions .Route .COMPLEX 07/29/23 07/29/23 History amlodipine 10 mg tablet 10 mg PO DAILY 07/29/23 07/29/23 History aspirin 325 mg tablet 325 mg PO DAILY 07/29/23 07/29/23 History escitalopram oxalate 20 mg tablet 20 mg PO DAILY 07/29/23 07/29/23 History hydralazine 100 mg tablet 100 mg PO BID 07/29/23 07/29/23 History insulin detemir U-100 100 unit/mL 45 unit subcut BID 07/29/23 07/29/23 History (3 mL) subcutaneous pen (Levemir FlexPen) lisinopril 2.5 mg tablet 2.5 mg PO DAILY 07/29/23 07/29/23 History metformin 500 mg tablet 500 mg PO BID 07/29/23 07/29/23 History metoprolol succinate 100 mg 100 mg PO QAM 07/29/23 07/29/23 History tablet,extended release 24 hr rosuvastatin 10 mg tablet 10 mg PO DAILY 07/29/23 07/29/23 History sildenafil (pulm.hypertension) 20 20 mg PO TID 07/29/23 07/29/23 History mg tablet spironolactone 25 mg tablet 25 mg PO DAILY 07/29/23 07/29/23 History torsemide 20 mg tablet 20 mg PO DAILY 07/29/23 07/29/23 History Patient History Medical History CVA (cerebral vascular accident) Obesity, morbid, BMI 40.0-49.9 CKD (chronic kidney disease), stage III Chronic diastolic CHF (congestive heart failure) Anxiety and depression Pulmonary hypertension Hypothyroidism CAD (coronary artery disease) Diabetes mellitus, type II HLD (hyperlipidemia) Hypertension Surgical History History of cardiac cath s/p stents Social History Smoking Status: Unknown if ever smoked Hx Alcohol Use: No Hx Substance Use: No Preferred Language: [place] Communication Ability: Effective Clamshell Operator Required: No Beliefs That Will Affect Care: None Current Living Situation: Family Current Living Situation Comment: lives with son Other Information That Helps Us Care for You: No Feels Safe at Home: Yes Safety Concerns: Feels Safe At This Time Gender Identity: Female Assistive Devices: Walker Review of Systems Review of Systems: All systems reviewed & are unremarkable except as noted in HPI & below Physical Exam Constitutional: + obese, cooperative and comfortable Eyes: normal visual britt by confrontation Neck: normal visual inspection Respiratory: normal respiratory effort Cardiovascular: Rate/Rhythm: regular rate and regular rhythm Vessels: posterior tibial pulses present and dorsalis pedis pulses present Skin: + ulcer (+plantar heel ulcer Focal full thickness w/ hyperkeratotic tissue periwound) Neurologic: moves all extremities Lower extremity decreased epicritic sensation Results & Data Vital Signs (Past 12 Hours) Vital Signs Temp Pulse Pulse Resp BP Pulse Ox O2 Del Method 07/31/23 19:00 36.6 C 69 16 131/70 96 Room Air 07/31/23 16:00 78 07/31/23 15:55 36.5 C 70 18 151/88 H 96 Room Air 07/31/23 11:30 36.7 C 75 18 170/81 H 96 Room Air [facility] [phone] XRay Report Patient: BRIAN REAGAN I Admit Date: 07/29/23 MR#: [id number] Address1: [address] [place] [address] Acct ID:[id number] Address2: Date: 1960 [facility] Zip: [place] [address] Age: 63 Location: ED Sex: F Room/Bed: Att Phy: Diagnosis: WEAKNESS Lluvia Phy: PCP,NO Service Date: 07/29/23 Fam Phy: Interpreting Phy: Stephane Leyva MDAdmit Phy: Ordering Phy: Enedelia Mcgee PA-C cc: ~ XR foot LT min 3V routine CLINICAL HISTORY: foot wound left TECHNIQUE: 3 views of the left foot were obtained. Comparison: None available at the time of this dictation. FINDINGS: No fractures are present. Degenerative changes are seen. Vascular calcifications are noted. IMPRESSION: Degenerative changes without evidence of acute fracture. ACT 112: Negative or not required by law. Electronically signed by: Stephane Leyva M.D. 07/29/2023 4:56 PM Dictated: 07/29/231653 Transcribed: 07/29/231653
[2023-08-01] MEDS: INSULIN ASPART PER UNIT CHARGE SC SCH (00:22)
[2023-08-01] MEDS: MoRPHine SULFATE 2 MG/ML CARP IV STA (03:58)
[2023-08-01] MEDS: CARBOHYDRATES FOR HYPOGLYCEMIA PO PRN (04:00)
[2023-08-01 04:14] LABS: Hemoglobin 12.1 g/dl (12.0-16.0); Mean Corpuscular Hemoglobin 26.8 pg (25.0-34.0); Mean Corpuscular Hgb Conc 32.7 g/dL (32.0-36.0); Mean Platelet Volume 9.6 fL (9.4-12.4); Platelet Count 328 K/uL (130-400); RDW Coefficient of Variation 13.9 % (11.5-14.5); RDW Standard Deviation 41.1 fL (36.4-46.3); Red Blood Count 4.51 M/uL (4.20-5.40); White Blood Count 11.27 K/ul (4.8-10.8)
[2023-08-01 04:29] LABS: Calcium 9.1 mg/dl (8.6-10.3); Creatinine Clr Calc Pharmacy 32.1 ml/min; Est GFR (African American) 28.7 ml/min; Est GFR (Non-African American) 24.8 ml/min; Magnesium 2.2 mg/dl (1.7-2.4); Phosphorus 4.1 mg/dl (2.5-4.9); Potassium 4.7 mmol/L (3.5-5.1)
[2023-08-01] MEDS: METOPROLOL SUCC 50MG EXT REL TAB PO SCH (08:52)
--- NOTE | 2023-08-01 11:52 | Hospitalist Progress Note ---
Date of Service August 01, 2023 Assessment & Plan (1) CVA (cerebral vascular accident): (2) Weakness: (3) Stroke-like symptoms: Plan: 63-year-old female with PMH uncontrolled DM II, HTN, dyslipidemia, CAD, H/O [place] s/p stents, hypothyroidism, RADHA, nocturnal hypoxia, pulmonary hypertension, chronic diastolic heart failure, depression, anxiety, CKD III-IV presented to ER with c/o weakness and fall the morning of admission. Denied hitting head, dizziness, CP, SOB. Patient with reported left sided headache and without focal deficits upon initial exam. Had also reported left sided facial paresthesias the previous day In ER patient found to be hypertensive with BP: 226/94, and hyperglycemic with glucose of 574. She was given Tylenol, two doses of hydralazine 10mg IV with repeat BP 166/69. Given total 15 units of insulin with repeat BSG 365. Initial CT scan head without acute findings. Initial exam upon admission patient without focal deficits and normal speech. Weakness and Headache were initially thought possible to hypertensive encephalopathy, hyperglycemia DDX: TIA, CVA, atypical migraine, hypertensive encephalopathy On day of admission, ER nurse at 17:03 noted that patient having slurred speech and word finding difficulties. Repeat BP: 199/110. BSG high 300's. Some reported decreased sensation left side of face, +slight right sided mouth drooping (appears similar to initial presentation) +expressive aphasia with some slurred speech. Alert and oriented x 3. EOMs intact. No nystagmus, Hearing grossly intact, soft palate elevates symmetrically, shoulder shrug intact, tongue is midline, normal movement, no fasciculations, strength 5/5 bilateral upper extremities, chronically unable to lift legs, pedal pushes and pulls intact bilaterally. Stroke alert called Repeat CT head No acute intracranial hemorrhage, no evidence of acute territorial infarction or other acute intracranial disease process. MRI brain showed small acute infarcts in both occipital lobes Carotid doppler noted mild to mod atherosclerotic plaque. 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 No Afib noted so far Home rosuvastatin increased to 20mg Card eval and recs noted Neuro recs noted Concern for possible embolic nature of infarct. Patient may need anticoagulation However, considering her fall risk and visual issues, will defer anticoag until arrhythmia such as Afib/Aflutter is confirmed Patient needs zio patch testing or loop on discharge Reviewed tele. (4) Hypertensive urgency: Plan: History of medication noncompliance In ER patient found to be hypertensive with BP: 226/94, and hyperglycemic with glucose of 574. She was given Tylenol, two doses of hydralazine 10mg IV with repeat BP 166/69 Nitropaste applied. Initially home medications of amlodipine, lisinopril, metoprolol succinate given Prior to stroke alert called in ER Antihypertensives were initially held once stroke was diagnosed for permissive hypertension These have been resumed and BP trend is improving (5) Hyperglycemia: (6) Diabetes mellitus, type II: Plan: History uncontrolled diabetes. History of med occasion noncompliance A1c: 13.3 on 01/17/2023 In ER glucose of 574. Given total 15 units of insulin with repeat BSG 365.VBG: pH: 7.34, pCO2: 50, HCO3 27. Corrected sodium 138 for glucose 574, osmolality: 319 Neurological symptoms present on admission likely from CVA not HHS HbA1c is 14.1 Lipid panel noted total cholesterol of 218, LDL 134, HDL 42, Trig 211 Hence patient has poorly controlled DM and hyperlipidemia as well She reported she has not been taking her insulin for a while due to problems seeing and poor hand/finger dexterity Provided DM education Considering visual problems, may benefit from daily long acting insulin so that family can help administer DM educator recs noted (7) Elevated troponin: (8) Non-ST elevation RI (NSTEMI): (9) CAD (coronary artery disease): Plan: Reported history of CAD, [place] s/p stents ?in 2019 in [place], [place] Troponin 96.8--> 100-->> 87. EKG sinus rhythm without acute ST changes noted Possible demand ischemia TTE as above Continue aspirin, metoprolol succinate, rosuvastatin Card eval appreciated Chest pain reported overnight Trop even lower than previous EKG no acute change Likely anxiety related as patient reported Will monitor (10) Foot ulcer, left: Plan: Diabetic foot ulcer left heel Wound nurse recommended getting Podiatry and Orthotics eval Podiatry eval noted. Messaged Graphite Grinder who reported he plans to do a bedside debridement later today Patient to follow up with wound clinic (11) Recent URI: Plan: Recent URI symptoms with reported improvement Biofire respiratory panel +coronavirus CXR: No acute infiltrate 92% on room air ? Chronic respiratory failure per patient's [id number]. She reports previously patient was prescribed 2 L oxygen to use continuously however patient previously noncompliant so oxygen returned Currently on room air (12) CKD (chronic kidney disease), stage III: Plan: CKD III-IV per outpatient records BUN: 30, Cr: 1.29. Cr: 1.0 on 03/16/2023, 1.9 on 01/17/2023 Monitor renal functions, avoid nephrotoxic agents when possible (13) Chronic diastolic CHF (congestive heart failure): Plan: Continue home torsemide, spironolactone (14) Pulmonary hypertension: Plan: On sildenafil (15) Anxiety and depression: Plan: Denies suicidal ideations Medication noncompliance Continue escitalopram (16) HLD (hyperlipidemia): Plan: Rosuvastatin increased as above (17) Obesity, morbid, BMI 40.0-49.9: Plan: BMI: 47 Lifestyle modifications should be addressed when appropriate during hospital course (18) Hypothyroidism: Plan: Reported history hypothyroidism Not on medications TSH: 2.2 Urine culture growing Klebsiella Possible UTI Sensitivities reviewed Based on sensitivities, will continue Ceftriaxone to complete treatment Abnormal CT finding As additional impression point, there is a 12 mm left apical opacity. This is indeterminant and may be inflammatory. A follow-up chest CT in 2-3 months time is recommended to document resolution. DVT Prophylaxis Hep sq DNR/DNI as per discussion with pt Previously seen by Dr Webb, as was getting established for local care I spent a total of 50 minutes reviewing notes, outpatient records, labs, medication, coordinating, documenting and providing care for this patient excluding time spent in the performance of separately billed services. Admission and Anticipated Discharge Date Admission Date: July 29, 2023 Subjective Patient seen and examined Per RN, she had chest pain overnight Patient reported she felt it was a panic attack She stated to me she felt overwhelmed with everything going on Denied any chest pain now Has chronic visual problems Has chronic peripheral neuropathy in feet. Denied cough, SOB, nausea, vomiting, abd pain, diarrhea Denied dysuria, freq, urgency Physical Exam Constitutional: + well hydrated; no acute distress ENMT: external ear and nose normal, oropharynx normal Respiratory: normal respiratory effort, lungs clear to auscultation Cardiovascular: Rate/Rhythm: regular rate and regular rhythm S1 S2 Gastrointestinal (Abdomen): normal bowel sounds, soft, nontender, no hepatosplenomegaly Musculoskeletal: Left heel wound Neurologic: PERRL, EOMI, accommodation nl, no face palsy, no dysarthria Psychiatric: A+Ox3, euthymic affect Results & Data Results & Data Vital Signs (Past 12 Hours) Vital Signs Temp Pulse Resp BP Pulse Ox O2 Del Method 08/01/23 11:04 36.6 C 65 16 152/79 H 95 Room Air 08/01/23 07:24 36.4 C L 63 18 173/78 H 97 Room Air 08/01/23 05:47 62 16 96 Room Air 08/01/23 04:06 36.5 C 69 22 175/71 H 93 Room Air Laboratory Results Abnormal lab results 07/31/23 08/01/23 08/01/23 Range/Units 15:51 03:37 03:54 WBC 11.27 H (4.8-10.8) K/ul Sodium 133 L (136-145) mmol/L BUN 39 H (6-23) mg/dl Creatinine 2.05 H D (0.6-1.2) mg/dl Glucose 58 L (70-99(Fasting)) mg/dl POC Glucose 129 H 56 L* (70-99) mg/dl Troponin I High Sens 59.7 H* (0-14) pg/ml 08/01/23 08/01/23 Range/Units 09:42 11:25 WBC (4.8-10.8) K/ul Sodium (136-145) mmol/L BUN (6-23) mg/dl Creatinine (0.6-1.2) mg/dl Glucose (70-99(Fasting)) mg/dl POC Glucose 135 H (70-99) mg/dl Troponin I High Sens 41.0 H D (0-14) pg/ml
[2023-08-01] MEDS: LANTUS PER UNIT CHARGE SC SCH (12:32)
--- NOTE | 2023-08-01 18:13 | Electrocardiogram Report ---
Test Reason : Blood Pressure : / mmHG Vent. Rate : 069 BPM Atrial Rate : 069 BPM P-R Int : 184 ms QRS Dur : 108 ms QT Int : 434 ms P-R-T Axes : 043 -32 045 degrees QTc Int : 465 ms Normal sinus rhythm Left axis deviation Voltage criteria for left ventricular hypertrophy Abnormal ECG When compared with ECG of 30-JUL-2023 06:18, No significant change was found Confirmed by Tristin Kohli ([id number]) on 08/01/2023 6:13:10 PM Referred By: REFERRED SELF Confirmed By:Tristin Kohli
--- NOTE | 2023-08-01 19:31 | Orthopedic Progress Note ---
Date of Service August 01, 2023 Assessment & Plan (1) Foot ulcer, left: Plan: Patient seen and evaluated at bedside in E217-1. A thorough evaluation of left plantar heel wound was done in detail. No immediate signs or symptoms of infection were observed or reported. Sharp excisional debridement completed with out incident. See procedure noted below. Off loading is an import part of this Patient's management. Thank you for allowing me to participate in the care of this Patient. Will continue to follow while in house. Today's procedure is an excisional debridement of deep tissue. There is a moderate amount of hyperkeratotic tissue periwound and mild serous exudate draining from the ulcer. The ulcer base is described as containing has pink granulation. Necrotic or devitalized tissue is estimated to be present in approximately 60% of the pressure ulcer bed. The ulcer has been exposed full- thickness tissue. I have informed the patient of the risks and benefit of this procedure and they have had the opportunity to ask questions. Appropriate c onsent has been obtained. The patient refused site marking. The area was prepped and draped in usual aseptic manner. The procedure was performed and a clean field. I debrided the wound sharply with a sterile #15 blade and necrotic tissue was excised down to and including subcutaneous tissue . Bleeding was minimal and hemostasis was achieved using pressure. The patient tolerated procedure well. Postprocedure no increased pain. (2) Diabetes mellitus, type II: Admission and Anticipated Discharge Date Admission Date: July 29, 2023 Subjective Patient seen while in reclining chair. She is resting comfortably. Patient has no complaints. Physical Exam Constitutional: + obese, cooperative and comfortable Eyes: normal visual britt by confrontation Neck: normal visual inspection Respiratory: normal respiratory effort Cardiovascular: Rate/Rhythm: regular rate and regular rhythm Vessels: posterior tibial pulses present and dorsalis pedis pulses present Skin: + ulcer (+plantar heel ulcer Focal full thickness w/ hyperkeratotic tissue periwound) plantar heel wound measures 1.3 x 1.1 x 0.2 cm Neurologic: moves all extremities Results & Data Vital Signs (Past 12 Hours) Vital Signs Temp Pulse Pulse Resp BP BP Pulse Ox 08/01/23 19:11 36.8 C 65 20 161/82 H 96 08/01/23 16:06 36.7 C 62 16 153/85 H 97 08/01/23 11:04 36.6 C 65 16 152/79 H 95 08/01/23 10:00 61 08/01/23 10:00 O2 Del Method 08/01/23 19:11 Room Air 08/01/23 16:06 Room Air 08/01/23 11:04 Room Air 08/01/23 10:00 08/01/23 10:00 Room Air
[2023-08-02 05:50] LABS: Hematocrit (blood only) 34.7 % (37.0-47.0); Hemoglobin 11.2 g/dl (12.0-16.0); Mean Corpuscular Hemoglobin 26.8 pg (25.0-34.0); Mean Corpuscular Hgb Conc 32.3 g/dL (32.0-36.0); Mean Platelet Volume 9.9 fL (9.4-12.4); Platelet Count 333 K/uL (130-400); Red Blood Count 4.18 M/uL (4.20-5.40); White Blood Count 10.56 K/ul (4.8-10.8)
[2023-08-02 05:56] LABS: BUN Creatinine Ratio 17.7 (10-20); Calcium 8.6 mg/dl (8.6-10.3); Creatinine Clr Calc Pharmacy 20.4 ml/min; Est GFR (African American) 18.2 ml/min; Est GFR (Non-African American) 15.7 ml/min; Magnesium 2.2 mg/dl (1.7-2.4); Phosphorus 5.6 mg/dl (2.5-4.9); Potassium 4.9 mmol/L (3.5-5.1)
--- NOTE | 2023-08-02 11:44 | Nephrology Consultation ---
Date of Consultation August 02, 2023 Assessment & Plan (1) ASHLY (acute kidney injury): Patient with acute kidney injury on CKD. Baseline creatinine around 1.3. Etiology of acute kidney injury due to contrast-induced nephropathy. Patient admitted with baseline renal function but creatinine has been uptrending since contrast load. She is making some urine. Electrolytes are stable. She appears euvolemic now but high risk for CHF. Okay to hold Lasix today but can resume tomorrow. Avoid further contrast. (2) Chronic diastolic CHF (congestive heart failure): She has significant edema but appears to be saturating well on room air. Okay to hold Lasix today. We can resume her Lasix tomorrow particularly if creatinine stabilizes. History of Present Illness Reason for Consultation: Acute kidney injury Requesting Physician: Maxine Casillas MD Attending Physician: Maxine Casillas MD History of Present Illness 63-year-old female with PMH uncontrolled DM II, HTN, dyslipidemia, CAD, H/O [place] s/p stents, hypothyroidism, RADHA, nocturnal hypoxia, pulmonary hypertension, chronic diastolic heart failure, depression, anxiety, CKD III admitted on 07/29/2019 for with weakness and fall. She subsequently had strokelike symptoms and required CTA of the head and neck on 07/30/2023. Admission creatinine was 1.3 which appears to be her baseline. Creatinine has been uptrending since the contrast load up to 2.99 today. She denies shortness of breath. Legs are swollen which is chronic. She is making some urine. Potassium is 4.9. Allergies Allergy/AdvReac Type Severity Reaction Status Date / Time No Known Allergies Allergy Unverified 07/29/23 15:45 Home Medications Medication Instructions Recorded Confirmed Type Trulicity See Rx Instructions .Route .COMPLEX 07/29/23 07/29/23 History amlodipine 10 mg tablet 10 mg PO DAILY 07/29/23 07/29/23 History aspirin 325 mg tablet 325 mg PO DAILY 07/29/23 07/29/23 History escitalopram oxalate 20 mg tablet 20 mg PO DAILY 07/29/23 07/29/23 History hydralazine 100 mg tablet 100 mg PO BID 07/29/23 07/29/23 History insulin detemir U-100 100 unit/mL 45 unit subcut BID 07/29/23 07/29/23 History (3 mL) subcutaneous pen (Levemir FlexPen) lisinopril 2.5 mg tablet 2.5 mg PO DAILY 07/29/23 07/29/23 History metformin 500 mg tablet 500 mg PO BID 07/29/23 07/29/23 History metoprolol succinate 100 mg 100 mg PO QAM 07/29/23 07/29/23 History tablet,extended release 24 hr rosuvastatin 10 mg tablet 10 mg PO DAILY 07/29/23 07/29/23 History sildenafil (pulm.hypertension) 20 20 mg PO TID 07/29/23 07/29/23 History mg tablet spironolactone 25 mg tablet 25 mg PO DAILY 07/29/23 07/29/23 History torsemide 20 mg tablet 20 mg PO DAILY 07/29/23 07/29/23 History Patient History Medical History CVA (cerebral vascular accident) Obesity, morbid, BMI 40.0-49.9 CKD (chronic kidney disease), stage III Chronic diastolic CHF (congestive heart failure) Anxiety and depression Pulmonary hypertension Hypothyroidism CAD (coronary artery disease) Diabetes mellitus, type II HLD (hyperlipidemia) Hypertension Surgical History History of cardiac cath s/p stents Social History Smoking Status: Unknown if ever smoked Hx Alcohol Use: No Hx Substance Use: No Preferred Language: Citizen Of [place] Communication Ability: Effective Learn To Swim Instructor Required: No Beliefs That Will Affect Care: None Current Living Situation: Family Current Living Situation Comment: lives with son Other Information That Helps Us Care for You: No Feels Safe at Home: Yes Safety Concerns: Feels Safe At This Time Gender Identity: Female Assistive Devices: Walker Review of Systems 2 Review of Systems: All other systems were reviewed and negative except as noted in HPI Physical Exam 2 Physical Exam: General exam: Appears comfortable, no acute distress HEENT: Pupils are equal and reactive to light Neck: No JVD, neck is supple trachea is midline Respiratory system: Clear breath sounds bilaterally. Gastrointestinal: Abdomen is soft, non distended, non tender, bowel sounds are present CVS: Regular rate and rhythm. No murmurs, rubs or gallops Musculoskeletal: No joint or muscle tenderness Extremities: Non tender, no edema, peripheral pulses are present Neuro: Oriented, no tremors, no focal neurological deficits Skin: No rashes Results & Data Vital Signs (Past 12 Hours) Vital Signs Temp Pulse Pulse Resp BP Pulse Ox O2 Del Method 08/02/23 11:35 36.6 C 66 18 143/83 H 95 Room Air 08/02/23 08:34 65 17 08/02/23 07:30 59 L 08/02/23 07:23 36.3 C L 58 L 16 132/73 97 Room Air 08/02/23 03:34 36.8 C 60 19 107/71 95 Room Air 08/02/23 00:27 Room Air Laboratory Results 08/02/23 05:16 08/02/23 05:16 WBC 10.56 RBC 4.18 L MCV 83.0 MCH 26.8 MCHC 32.3 RDW Std Deviation 42.0 RDW Coeff of Sven 14.0 Plt Count 333 MPV 9.9 Phosphorus 5.6 H
--- NOTE | 2023-08-02 14:00 | Hospitalist Progress Note ---
Date of Service August 02, 2023 Assessment & Plan (1) CVA (cerebral vascular accident): (2) Weakness: (3) Stroke-like symptoms: Plan: 63-year-old female with PMH uncontrolled DM II, HTN, dyslipidemia, CAD, H/O OK s/p stents, hypothyroidism, RADHA, nocturnal hypoxia, pulmonary hypertension, chronic diastolic heart failure, depression, anxiety, CKD III-IV presented to ER with c/o weakness and fall the morning of admission. Denied hitting head, dizziness, CP, SOB. Patient with reported left sided headache and without focal deficits upon initial exam. Had also reported left sided facial paresthesias the previous day In ER patient found to be hypertensive with BP: 226/94, and hyperglycemic with glucose of 574. She was given Tylenol, two doses of hydralazine 10mg IV with repeat BP 166/69. Given total 15 units of insulin with repeat BSG 365. Initial CT scan head without acute findings. Initial exam upon admission patient without focal deficits and normal speech. Weakness and Headache were initially thought possible to hypertensive encephalopathy, hyperglycemia DDX: TIA, CVA, atypical migraine, hypertensive encephalopathy On day of admission, ER nurse at 17:03 noted that patient having slurred speech and word finding difficulties. Repeat BP: 199/110. BSG high 300's. Some reported decreased sensation left side of face, +slight right sided mouth drooping (appears similar to initial presentation) +expressive aphasia with some slurred speech. Alert and oriented x 3. EOMs intact. No nystagmus, Hearing grossly intact, soft palate elevates symmetrically, shoulder shrug intact, tongue is midline, normal movement, no fasciculations, strength 5/5 bilateral upper extremities, chronically unable to lift legs, pedal pushes and pulls intact bilaterally. Stroke alert called Repeat CT head No acute intracranial hemorrhage, no evidence of acute territorial infarction or other acute intracranial disease process. MRI brain showed small acute infarcts in both occipital lobes Carotid doppler noted mild to mod atherosclerotic plaque. 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 No Afib noted so far Home rosuvastatin increased to 20mg Card eval and recs noted Neuro recs noted Concern for possible embolic nature of infarct. Patient may need anticoagulation However, considering her fall risk and visual issues, will defer anticoag until arrhythmia such as Afib/Aflutter is confirmed Patient needs zio patch testing or loop on discharge (4) Hypertensive urgency: Plan: History of medication noncompliance In ER patient found to be hypertensive with BP: 226/94, and hyperglycemic with glucose of 574. She was given Tylenol, two doses of hydralazine 10mg IV with repeat BP 166/69 Nitropaste applied. Initially home medications of amlodipine, lisinopril, metoprolol succinate given Prior to stroke alert called in ER Antihypertensives were initially held once stroke was diagnosed for permissive hypertension These have been resumed and BP trend is better controlled (5) Hyperglycemia: (6) Diabetes mellitus, type II: Plan: History uncontrolled diabetes. History of med occasion noncompliance A1c: 13.3 on 01/17/2023 In ER glucose of 574. Given total 15 units of insulin with repeat BSG 365.VBG: pH: 7.34, pCO2: 50, HCO3 27. Corrected sodium 138 for glucose 574, osmolality: 319 Neurological symptoms present on admission likely from CVA not HHS HbA1c is 14.1 Lipid panel noted total cholesterol of 218, LDL 134, HDL 42, Trig 211 Hence patient has poorly controlled DM and hyperlipidemia as well She reported she has not been taking her insulin for a while due to problems seeing and poor hand/finger dexterity Provided DM education Considering visual problems, may benefit from daily long acting insulin so that family can help administer Due to fasting hypoglycemia, discussed with Glycemic pharm. Lantus reduced Continue to monitor (7) Elevated troponin: (8) Non-ST elevation OK (NSTEMI): (9) CAD (coronary artery disease): Plan: Reported history of CAD, OK s/p stents ?in 2019 in [place], [place] Troponin 96.8--> 100-->> 87. EKG sinus rhythm without acute ST changes noted Possible demand ischemia TTE as above Continue aspirin, metoprolol succinate, rosuvastatin Card eval appreciated (10) Foot ulcer, left: Plan: Diabetic foot ulcer left heel Wound nurse recommended getting Podiatry and Orthotics eval Podiatry eval noted. S/p Bedside debridement on 08/01/23 by Internal Security Manager Patient to follow up with wound clinic (11) Recent URI: Plan: Recent URI symptoms with reported improvement Biofire respiratory panel +coronavirus CXR: No acute infiltrate 92% on room air ? Chronic respiratory failure per patient's [id number]. She reports previously patient was prescribed 2 L oxygen to use continuously however patient previously noncompliant so oxygen returned Currently on room air (12) CKD (chronic kidney disease), stage III: Plan: CKD III-IV per outpatient records BUN: 30, Cr: 1.29. Cr: 1.0 on 03/16/2023, 1.9 on 01/17/2023 Has ASHLY today Cr trending up to 2.99 today Likely due to recent contrast with CTA. Contrast induced nephropathy Diuretcis held for now Monitor Nephro recs appreciated (13) Chronic diastolic CHF (congestive heart failure): Plan: Home diuretics on hold as above (14) Pulmonary hypertension: Plan: On sildenafil (15) Anxiety and depression: Plan: Denies suicidal ideations Medication noncompliance Continue escitalopram (16) HLD (hyperlipidemia): Plan: Rosuvastatin increased as above (17) Obesity, morbid, BMI 40.0-49.9: Plan: Lifestyle modifications should be addressed when appropriate during hospital course (18) Hypothyroidism: Plan: Reported history hypothyroidism Not on medications TSH: 2.2 Urine culture growing Klebsiella Possible UTI Sensitivities reviewed Based on sensitivities, will continue Ceftriaxone to complete treatment Abnormal CT finding As additional impression point, there is a 12 mm left apical opacity. This is indeterminant and may be inflammatory. A follow-up chest CT in 2-3 months time is recommended to document resolution. DVT Prophylaxis Hep sq DNR/DNI as per discussion with pt Previously seen by Dr Webb, as was getting established for local care Call to son was unanswered. Will try again later I spent a total of 40 minutes reviewing notes, outpatient records, labs, medication, coordinating, documenting and providing care for this patient excluding time spent in the performance of separately billed services. Admission and Anticipated Discharge Date Admission Date: July 29, 2023 Subjective Patient seen and examined No new complaints today Denied any chest pain, cough, shortness of breath, nausea, vomiting, abd pain, diarrhea Denied dysuria, freq, urgency Has chronic visual problems Has chronic peripheral neuropathy in feet. Physical Exam Constitutional: + well hydrated; no acute distress Eyes: PERRL. +cataract ENMT: external ear and nose normal, oropharynx normal Respiratory: normal respiratory effort, lungs clear to auscultation Cardiovascular: Rate/Rhythm: regular rate and regular rhythm S1 S2 Gastrointestinal (Abdomen): normal bowel sounds, soft, nontender, no hepatosplenomegaly Musculoskeletal: Left heel wound dressed Neurologic: PERRL, EOMI, accommodation nl, no face palsy, no dysarthria Psychiatric: A+Ox3, euthymic affect Results & Data Results & Data Vital Signs (Past 12 Hours) Vital Signs Temp Pulse Pulse Resp BP Pulse Ox O2 Del Method 08/02/23 11:35 36.6 C 66 18 143/83 H 95 Room Air 08/02/23 08:34 65 17 08/02/23 07:30 59 L 08/02/23 07:23 36.3 C L 58 L 16 132/73 97 Room Air 08/02/23 03:34 36.8 C 60 19 107/71 95 Room Air Laboratory Results Abnormal lab results 08/02/23 08/02/23 08/02/23 Range/Units 05:16 05:59 11:20 RBC 4.18 L (4.20-5.40) M/uL Hgb 11.2 L (12.0-16.0) g/dl Hct 34.7 L (37.0-47.0) % Sodium 133 L (136-145) mmol/L BUN 53 H (6-23) mg/dl Creatinine 2.99 H D (0.6-1.2) mg/dl Glucose 48 L* (70-99(Fasting)) mg/dl POC Glucose 51 L* 191 H (70-99) mg/dl Phosphorus 5.6 H (2.5-4.9) mg/dl 08/02/23 Range/Units 16:16 RBC (4.20-5.40) M/uL Hgb (12.0-16.0) g/dl Hct (37.0-47.0) % Sodium (136-145) mmol/L BUN (6-23) mg/dl Creatinine (0.6-1.2) mg/dl Glucose (70-99(Fasting)) mg/dl POC Glucose 127 H (70-99) mg/dl Phosphorus (2.5-4.9) mg/dl
--- NOTE | 2023-08-02 15:16 | Pharmacy Report ---
Pharmacy Glycemic Short Note 2 - Date of Service August 02, 2023 - Glycemic Short BSG Results (Last 24 hours): 08/01/23 08/01/23 08/01/23 16:10 16:11 16:37 Glucose POC Glucose 66 L* 67 L* 70 08/01/23 08/02/23 08/02/23 20:02 05:16 05:59 Glucose 48 L* POC Glucose 85 51 L* 08/02/23 08/02/23 08/02/23 06:33 07:21 11:20 Glucose POC Glucose 88 97 191 H OUTPATIENT ANTIDIABETIC REGIMEN: * metformin 500mg BID * Trulicity (unsure of dose) QSunday * Levemir 45 units BID * HbA1c 14.1% (07/30/23) previously 13.3 (01/17/23) ASSESSMENT: 08/02: * Patients insulin needs have significantly decreased over the past 48 hours. * Yesterday she received a total of 38 units of insulin (decreased from 57 units on 07/31) with majority of BSGs below goal * 08/01: 30 units Lantus + 8 units Novolog * Fasting hypoglycemia despite 33% decrease in Lantus dose yesterday. Will further decrease today. * Worsening renal function likely contributing to decreased needs. Scr 2.99 mg/dl today. 07/31 * Patient received total of 116 units of insulin yesterday + insulin drip (running part of the day) * Insulin drip d/c yesterday afternoon. Fasting BSG 82 mg/dL - will scale back on basal insulin ~25% this morning, and will utilize scale for HS. Estimated basal needs likely closer to ~60 units/day * Loosened CF/CR this AM 07/30 * Maricel was admitted yesterday evening with a headache and subsequently found to have a CVA as well as likely HHS. She has a history of type 2 diabetes. Pharmacy has been consulted to assist with glycemic management. * BSG on admission 574, multiple regular IV insulin boluses yesterday did not correct the hyperglycemia so she was subsequently started on an insulin infusion. * The insulin infusion was stopped overnight and then resumed this AM to help transition to SQ insulin. As of this AM she used approximately 65 units of insulin overnight in 8 hours. Would estimated basal needs at approximately 90- 100 units daily which coincides with home regimen fo 45 units twice daily. Approximately half estimated basal needs given this AM, scale added at bedtime based on BSG for the remaining basal dosage. * Insulin drip stopped this afternoon and Novolog initiated based on home basal dosage and estimated daily drip usage per the SQ insulin dose calculator starting with dinner. Discussed plan with Dr. Casillas this AM. * She is only IV ceftriaxone and doxycycline. She was on IV fluids of 1/2NS +20KCl which was just discontinued. PLAN FOR INPATIENT GLYCEMIC CONTROL: * Hold outpatient oral diabetes medications * Basal insulin * Lantus 20 units SQ qHS * Bolus insulin * NovoLog per scale ACHS or Q6hrs while NPO * Goal Range: Low 110 mg/dL - High 140 mg/dL * Correction Factor: 30 mg/dL/unit * Nutritional / Prandial insulin per carb ratio of 1 unit per 15 grams CHO consumed
[2023-08-02] MEDS: LANTUS PER UNIT CHARGE SC SCH (21:13)
[2023-08-03 07:25] LABS: Hematocrit (blood only) 33.6 % (37.0-47.0); Hemoglobin 10.6 g/dl (12.0-16.0); Mean Corpuscular Hemoglobin 26.5 pg (25.0-34.0); Mean Corpuscular Hgb Conc 31.5 g/dL (32.0-36.0); Mean Platelet Volume 9.5 fL (9.4-12.4); Platelet Count 290 K/uL (130-400); RDW Coefficient of Variation 13.8 % (11.5-14.5); RDW Standard Deviation 42.6 fL (36.4-46.3); White Blood Count 9.42 K/ul (4.8-10.8)
[2023-08-03 07:53] LABS: BUN Creatinine Ratio 17.4 (10-20); Calcium 8.2 mg/dl (8.6-10.3); Creatinine Clr Calc Pharmacy 16.2 ml/min; Est GFR (African American) 12.5 ml/min; Est GFR (Non-African American) 10.8 ml/min; Potassium 5.9 mmol/L (3.5-5.1)
[2023-08-03] MEDS: MICONAZOLE NITRATE POWDER 85 GM EXT SCH (10:15)
--- NOTE | 2023-08-03 10:18 | Pharmacy Report ---
Pharmacy Glycemic Short Note 2 - Date of Service August 03, 2023 - Glycemic Short BSG Results (Last 24 hours): 08/02/23 08/02/23 08/02/23 11:20 16:16 19:52 Glucose POC Glucose 191 H 127 H 134 H 08/03/23 08/03/23 08/03/23 03:44 06:57 07:22 Glucose 86 POC Glucose 98 90 OUTPATIENT ANTIDIABETIC REGIMEN: * metformin 500mg BID * Trulicity (unsure of dose) QSunday * Levemir 45 units BID * HbA1c 14.1% (07/30/23) previously 13.3 (01/17/23) ASSESSMENT: 08/03: * Patient received total of 30 units of insulin yesterday, of which 20 units were basal insulin. Insulin needs significantly decreasing each day in setting of ASHLY. Scr worsening more this AM. * Plan to decrease basal this evening ~50% to hopefully avoid any hypoglycemia. Will need to adjust basal insulin as renal function improves * No change to CF/CR for now 08/02: * Patients insulin needs have significantly decreased over the past 48 hours. * Yesterday she received a total of 38 units of insulin (decreased from 57 units on 07/31) with majority of BSGs below goal * 08/01: 30 units Lantus + 8 units Novolog * Fasting hypoglycemia despite 33% decrease in Lantus dose yesterday. Will further decrease today. * Worsening renal function likely contributing to decreased needs. Scr 2.99 mg/dl today. 07/31 * Patient received total of 116 units of insulin yesterday + insulin drip (running part of the day) * Insulin drip d/c yesterday afternoon. Fasting BSG 82 mg/dL - will scale back on basal insulin ~25% this morning, and will utilize scale for HS. Estimated basal needs likely closer to ~60 units/day * Loosened CF/CR this AM 07/30 * Maricel was admitted yesterday evening with a headache and subsequently found to have a CVA as well as likely HHS. She has a history of type 2 diabetes. Pharmacy has been consulted to assist with glycemic management. * BSG on admission 574, multiple regular IV insulin boluses yesterday did not correct the hyperglycemia so she was subsequently started on an insulin infusion. * The insulin infusion was stopped overnight and then resumed this AM to help transition to SQ insulin. As of this AM she used approximately 65 units of insulin overnight in 8 hours. Would estimated basal needs at approximately 90- 100 units daily which coincides with home regimen fo 45 units twice daily. Approximately half estimated basal needs given this AM, scale added at bedtime based on BSG for the remaining basal dosage. * Insulin drip stopped this afternoon and Novolog initiated based on home basal dosage and estimated daily drip usage per the SQ insulin dose calculator starting with dinner. Discussed plan with Dr. Casillas this AM. * She is only IV ceftriaxone and doxycycline. She was on IV fluids of 1/2NS +20KCl which was just discontinued. PLAN FOR INPATIENT GLYCEMIC CONTROL: * Hold outpatient oral diabetes medications * Basal insulin * Lantus 10 units SQ qHS * Bolus insulin * NovoLog per scale ACHS or Q6hrs while NPO * Goal Range: Low 110 mg/dL - High 140 mg/dL * Correction Factor: 30 mg/dL/unit * Nutritional / Prandial insulin per carb ratio of 1 unit per 15 grams CHO consumed
--- NOTE | 2023-08-03 11:17 | Hospitalist Progress Note ---
Date of Service August 03, 2023 Assessment & Plan (1) CVA (cerebral vascular accident): (2) Weakness: (3) Stroke-like symptoms: Plan: 63-year-old female with PMH uncontrolled DM II, HTN, dyslipidemia, CAD, H/O OR s/p stents, hypothyroidism, RADHA, nocturnal hypoxia, pulmonary hypertension, chronic diastolic heart failure, depression, anxiety, CKD III-IV presented to ER with c/o weakness and fall the morning of admission. Denied hitting head, dizziness, CP, SOB. Patient with reported left sided headache and without focal deficits upon initial exam. Had also reported left sided facial paresthesias the previous day In ER patient found to be hypertensive with BP: 226/94, and hyperglycemic with glucose of 574. She was given Tylenol, two doses of hydralazine 10mg IV with repeat BP 166/69. Given total 15 units of insulin with repeat BSG 365. Initial CT scan head without acute findings. Initial exam upon admission patient without focal deficits and normal speech. Weakness and Headache were initially thought possible to hypertensive encephalopathy, hyperglycemia DDX: TIA, CVA, atypical migraine, hypertensive encephalopathy On day of admission, ER nurse at 17:03 noted that patient having slurred speech and word finding difficulties. Repeat BP: 199/110. BSG high 300's. Some reported decreased sensation left side of face, +slight right sided mouth drooping (appears similar to initial presentation) +expressive aphasia with some slurred speech. Alert and oriented x 3. EOMs intact. No nystagmus, Hearing grossly intact, soft palate elevates symmetrically, shoulder shrug intact, tongue is midline, normal movement, no fasciculations, strength 5/5 bilateral upper extremities, chronically unable to lift legs, pedal pushes and pulls intact bilaterally. Stroke alert called Repeat CT head No acute intracranial hemorrhage, no evidence of acute territorial infarction or other acute intracranial disease process. MRI brain showed small acute infarcts in both occipital lobes Carotid doppler noted mild to mod atherosclerotic plaque. 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 No Afib noted so far Home rosuvastatin increased to 20mg Card eval and recs noted Neuro recs noted Concern for possible embolic nature of infarct. Patient may need anticoagulation However, considering her fall risk and visual issues, will defer anticoag until arrhythmia such as Afib/Aflutter is confirmed Patient needs zio patch testing or loop on discharge Tele reviewed (4) Hypertensive urgency: Plan: History of medication noncompliance In ER patient found to be hypertensive with BP: 226/94, and hyperglycemic with glucose of 574. She was given Tylenol, two doses of hydralazine 10mg IV with repeat BP 166/69 Nitropaste applied. Initially home medications of amlodipine, lisinopril, metoprolol succinate given Prior to stroke alert called in ER Antihypertensives were initially held once stroke was diagnosed for permissive hypertension These have been resumed and BP trend is better controlled (5) Hyperglycemia: (6) Diabetes mellitus, type II: Plan: History uncontrolled diabetes. History of med occasion noncompliance A1c: 13.3 on 01/17/2023 In ER glucose of 574. Given total 15 units of insulin with repeat BSG 365.VBG: pH: 7.34, pCO2: 50, HCO3 27. Corrected sodium 138 for glucose 574, osmolality: 319 Neurological symptoms present on admission likely from CVA not HHS HbA1c is 14.1 Lipid panel noted total cholesterol of 218, LDL 134, HDL 42, Trig 211 Hence patient has poorly controlled DM and hyperlipidemia as well She reported she has not been taking her insulin for a while due to problems seeing and poor hand/finger dexterity Provided DM education Considering visual problems, may benefit from daily long acting insulin so that family can help administer Adjusting insulin as appropriate Continue to monitor (7) Elevated troponin: (8) Non-ST elevation OR (NSTEMI): (9) CAD (coronary artery disease): Plan: Reported history of CAD, OR s/p stents ?in 2019 in [place], [place] Troponin 96.8--> 100-->> 87. EKG sinus rhythm without acute ST changes noted Possible demand ischemia TTE as above Continue aspirin, metoprolol succinate, rosuvastatin Card eval appreciated (10) Foot ulcer, left: Plan: Diabetic foot ulcer left heel Wound nurse recommended getting Podiatry and Orthotics eval Podiatry eval noted. S/p Bedside debridement on 08/01/23 by Enterprise Systems Engineer Patient to follow up with wound clinic (11) Recent URI: Plan: Recent URI symptoms with reported improvement Biofire respiratory panel +coronavirus CXR: No acute infiltrate 92% on room air ? Chronic respiratory failure per patient's [id number]. She reports previously patient was prescribed 2 L oxygen to use continuously however patient previously noncompliant so oxygen returned Currently on room air (12) CKD (chronic kidney disease), stage III: Plan: CKD III-IV per outpatient records BUN: 30, Cr: 1.29. Cr: 1.0 on 03/16/2023, 1.9 on 01/17/2023 ASHLY on CKD Cr 4.09 today Likely due to recent contrast with CTA. Contrast induced nephropathy Diuretics held for now Monitor Discussed with Nephrology who is also concerned and will like to assess for other etiologies (13) Chronic diastolic CHF (congestive heart failure): Plan: Home diuretics on hold as above (14) Pulmonary hypertension: Plan: On sildenafil (15) Anxiety and depression: Plan: Denies suicidal ideations Medication noncompliance Continue escitalopram (16) HLD (hyperlipidemia): Plan: Rosuvastatin increased as above (17) Obesity, morbid, BMI 40.0-49.9: Plan: Lifestyle modifications should be addressed when appropriate during hospital course (18) Hypothyroidism: Plan: Reported history hypothyroidism Not on medications TSH: 2.2 Urine culture growing Klebsiella Possible UTI Sensitivities reviewed Completed Abx Abnormal CT finding As additional impression point, there is a 12 mm left apical opacity. This is indeterminant and may be inflammatory. A follow-up chest CT in 2-3 months time is recommended to document resolution. DVT Prophylaxis Hep sq DNR/DNI as per discussion with pt Previously seen by Dr Webb, as was getting established for local care Called and updated son I spent a total of 45 minutes reviewing notes, outpatient records, labs, medication, coordinating, documenting and providing care for this patient excluding time spent in the performance of separately billed services. Admission and Anticipated Discharge Date Admission Date: July 29, 2023 Subjective Patient seen and examined No new complaints today Physical Exam Constitutional: + well hydrated; no acute distress Eyes: +cataract ENMT: external ear and nose normal, oropharynx normal Respiratory: normal respiratory effort, lungs clear to auscultation Cardiovascular: Rate/Rhythm: regular rate and regular rhythm S1 S2 Gastrointestinal (Abdomen): normal bowel sounds, soft, nontender, no hepatosplenomegaly Musculoskeletal: Clean dressing over left heel Neurologic: PERRL, EOMI, accommodation nl, no face palsy, no dysarthria Psychiatric: A+Ox3, euthymic affect Results & Data Results & Data Vital Signs (Past 12 Hours) Vital Signs Temp Pulse Resp BP Pulse Ox O2 Del Method 08/03/23 07:43 36.6 C 62 19 155/73 H 95 Room Air 08/03/23 03:53 36.7 C 62 16 124/69 95 Room Air Laboratory Results Abnormal lab results 08/02/23 08/02/23 08/03/23 Range/Units 16:16 19:52 06:57 RBC 4.00 L (4.20-5.40) M/uL Hgb 10.6 L (12.0-16.0) g/dl Hct 33.6 L (37.0-47.0) % MCHC 31.5 L (32.0-36.0) g/dL Sodium 133 L (136-145) mmol/L Potassium 5.9 H D (3.5-5.1) mmol/L BUN 71 H (6-23) mg/dl Creatinine 4.09 H D (0.6-1.2) mg/dl POC Glucose 127 H 134 H (70-99) mg/dl Calcium 8.2 L (8.6-10.3) mg/dl 08/03/23 Range/Units 11:14 RBC (4.20-5.40) M/uL Hgb (12.0-16.0) g/dl Hct (37.0-47.0) % MCHC (32.0-36.0) g/dL Sodium (136-145) mmol/L Potassium (3.5-5.1) mmol/L BUN (6-23) mg/dl Creatinine (0.6-1.2) mg/dl POC Glucose 167 H (70-99) mg/dl Calcium (8.6-10.3) mg/dl
--- NOTE | 2023-08-03 14:31 | Nephrology Progress Note ---
Date of Service August 03, 2023 Assessment & Plan (1) ASHLY (acute kidney injury): Plan: worsening now Stage 3 ASHLY on CKD w/ presumed baseline creat 1.3. Creatinine 1.3 on several checks this admission. was 1.0 in March and 1.9 in January. no other OP data found. Etiology of acute kidney injuryincludes contrast- induced nephropathy +/- other contributing factors such as HTN emergency on admission; concern for embolic phenomena given embolic stroke on presentation w/ concern for and/or infection playing a role. Patient admitted with baseline renal function but creatinine has been uptrending since contrast load. She is likely > 400 mL UOP past 24 hrs though I/O incomplete. Electrolytes are stable. Have ordered the following: -renal u/s -complement ordered and ESR as well as lactate, CK w/ repeat bmp -low K diet -repeat UA -lokelma 10 gm tid, for 2 doses today -FR 1.5L daily -strict I/O -one dose lasix 40 mg IV >repeat bmp for 1999 She appears euvolemic now but high risk for CHF. Avoid further contrast. NO HD required for now but cannot rule out need. Care coordinated w/ Dr Casillas. (2) Chronic diastolic CHF (congestive heart failure): Plan: She has significant edema but appears to be saturating well on room air. one dose of lasix today Admission and Anticipated Discharge Date Admission Date: July 29, 2023 Subjective seen on afternoon rounds; not sob; no uncontroleled pain. not sure if she's got edema. pain controlled. working best she can w/ nursing on strict I/o Review of Systems 2 Review of Systems: All systems reviewed & are unremarkable except as noted in Subjective Physical Exam 2 Constitutional: well developed, well nourished, + obese and comfortable Eyes: EOM intact bilaterally ENMT: Ears: no external ear abnormality Nose: no external nose abnormality Mouth: + dry oral mucous membranes Neck: no nuchal rigidity Respiratory: normal respiratory effort Auscultation: + diminished lung sounds Cardiovascular: RRR, no murmur, no edema Gastrointestinal (Abdomen): Inspection/Auscultation: normal bowel sounds P ercussion/Palpation: abdomen soft; abdomen nontender Musculoskeletal: Extremities: strength 5/5 throughout Skin: no rashes, warm and dry Neurologic: cobb, fluent speech, no tremor Results & Data Vital Signs (Past 12 Hours) Vital Signs Temp Pulse Pulse Resp BP Pulse Ox O2 Del Method 08/03/23 11:17 36.5 C 66 19 138/77 96 Room Air 08/03/23 08:00 63 08/03/23 07:43 36.6 C 62 19 155/73 H 95 Room Air 08/03/23 03:53 36.7 C 62 16 124/69 95 Room Air Laboratory Results 08/03/23 06:57 08/03/23 06:57
[2023-08-03] MEDS: SODIUM ZIRCONIUM CYCLOSILICATE 10 GM PACKET PO SCH (17:53)
--- NOTE | 2023-08-03 17:56 | Ultrasound Report ---
US renal/blad retro comp CLINICAL HISTORY: worsening ASHLY, hx embolic stroke TECHNIQUE: Multiple sonographic real-time images of the kidneys and bladder were obtained. COMPARISON: None available at the time of this dictation. FINDINGS: The right kidney measures 11.6 cm in length, and the left kidney measures 12.6 cm in length. The right kidney is normal in size, contour, cortical thickness, and echogenicity. No hydronephrosis is identified. No renal lesion is identified. The left kidney is normal in size, contour, cortical thickness and echogenicity. No hydronephrosis i s identified. No renal lesion is identified. The bladder is underdistended limiting visualization. Ureteric jets are not seen at the time of exam. IMPRESSION: No evidence of hydronephrosis. ACT 112: Negative or not required by law. Electronically signed by: Stephane Leyva M.D. 08/03/2023 5:55 PM
[2023-08-03] MEDS: FUROSEMIDE 40 MG/4 ML VIAL IV ONE (18:01)
[2023-08-03] MEDS: PATIROMER CALCIUM SORBITEX 8.4 GM PACK PO SCH (19:27)
[2023-08-03] MEDS ORDERED: LANTUS PER UNIT CHARGE SC SCH (21:00)
[2023-08-03 21:26] LABS: BUN Creatinine Ratio 21.1 (10-20); Calcium 8.2 mg/dl (8.6-10.3); Creatinine Clr Calc Pharmacy 17.3 ml/min; Est GFR (African American) 13.5 ml/min; Est GFR (Non-African American) 11.6 ml/min; Potassium 5.3 mmol/L (3.5-5.1)
[2023-08-03 21:50] LABS: Appearance Urine Clear (Clear); Bacteria Urine Automated Negative (Negative); Bilirubin Urine Negative (Negative); Blood Urine Negative (Negative); Color Urine Yellow; Epithelial Cell Urine Auto >30 /lpf (0-5); Glucose Urine UA Negative (Negative); Ketones Urine Negative (Negative); Leukocyte Esterase Urine Negative (Negative); Nitrite Urine Negative (Negative); Protein Urine 3+ (Negative); RBC Urine Automated 0-4 /hpf (0-4); Specific Gravity Urine 1.013 (1.000-1.030); Urobilinogen Urine Negative (Negative)
[2023-08-04 08:09] LABS: Hemoglobin 11.3 g/dl (12.0-16.0); Mean Corpuscular Hemoglobin 27.4 pg (25.0-34.0); Mean Corpuscular Hgb Conc 33.2 g/dL (32.0-36.0); Mean Corpuscular Volume 82.3 fL (80.0-100.0); Mean Platelet Volume 9.8 fL (9.4-12.4); Platelet Count 329 K/uL (130-400); RDW Standard Deviation 41.4 fL (36.4-46.3); Red Blood Count 4.13 M/uL (4.20-5.40); White Blood Count 9.18 K/ul (4.8-10.8)
[2023-08-04 08:35] LABS: BUN Creatinine Ratio 22.8 (10-20); Calcium 8.4 mg/dl (8.6-10.3); Est GFR (African American) 14.2 ml/min; Est GFR (Non-African American) 12.2 ml/min; Potassium 5.1 mmol/L (3.5-5.1)
[2023-08-04] MEDS: LANTUS PER UNIT CHARGE SC SCH (08:35)
--- NOTE | 2023-08-04 09:09 | Pharmacy Report ---
Pharmacy Glycemic Short Note 2 - Date of Service August 04, 2023 - Glycemic Short BSG Results (Last 24 hours): 08/03/23 08/03/23 08/03/23 11:14 16:24 20:27 Glucose POC Glucose 167 H 107 H 141 H 08/03/23 08/04/23 08/04/23 20:52 05:27 07:47 Glucose 143 H POC Glucose 146 H 138 H 08/04/23 07:49 Glucose 132 H POC Glucose OUTPATIENT ANTIDIABETIC REGIMEN: * Metformin 500mg PO BID * Trulicity (has not been taking for several months) * Levemir 45 units SC BID HbA1c 14.1% (07/30/23) previously 13.3% (01/17/23) ASSESSMENT: 08/04: * BSGs ranging 90-167 mg/dL yesterday, received 9 units of SC bolus only (basal held completely) * Fasting BSG elevated at 146 mg/dL this morning - will restart basal insulin this morning * Do not anticipate any changes to Novolog parameters today 08/03: * Patient received total of 30 units of insulin yesterday, of which 20 units were basal insulin. Insulin needs significantly decreasing each day in setting of ASHLY. Scr worsening more this AM. * Plan to decrease basal this evening ~50% to hopefully avoid any hypoglycemia. Will need to adjust basal insulin as renal function improves * No change to CF/CR for now 08/02: * Patients insulin needs have significantly decreased over the past 48 hours. * Yesterday she received a total of 38 units of insulin (decreased from 57 units on 07/31) with majority of BSGs below goal * 08/01: 30 units Lantus + 8 units Novolog * Fasting hypoglycemia despite 33% decrease in Lantus dose yesterday. Will further decrease today. * Worsening renal function likely contributing to decreased needs. Scr 2.99 mg/dl today. 07/31 * Patient received total of 116 units of insulin yesterday + insulin drip (running part of the day) * Insulin drip d/c yesterday afternoon. Fasting BSG 82 mg/dL - will scale back on basal insulin ~25% this morning, and will utilize scale for HS. Estimated basal needs likely closer to ~60 units/day * Loosened CF/CR this AM 07/30 * Maricel was admitted yesterday evening with a headache and subsequently found to have a CVA as well as likely HHS. She has a history of type 2 diabetes. Pharmacy has been consulted to assist with glycemic management. * BSG on admission 574, multiple regular IV insulin boluses yesterday did not correct the hyperglycemia so she was subsequently started on an insulin i nfusion. * The insulin infusion was stopped overnight and then resumed this AM to help transition to SQ insulin. As of this AM she used approximately 65 units of insulin overnight in 8 hours. Would estimated basal needs at approximately 90- 100 units daily which coincides with home regimen fo 45 units twice daily. Approximately half estimated basal needs given this AM, scale added at bedtime based on BSG for the remaining basal dosage. * Insulin drip stopped this afternoon and Novolog initiated based on home basal dosage and estimated daily drip usage per the SQ insulin dose calculator starting with dinner. Discussed plan with Dr. Casillas this AM. * She is only IV ceftriaxone and doxycycline. She was on IV fluids of 1/2NS +20KCl which was just discontinued. PLAN FOR INPATIENT GLYCEMIC CONTROL: * Hold outpatient oral diabetes medications * Basal insulin * Lantus 20 units SC daily * Bolus insulin * NovoLog per scale ACHS or Q6hrs while NPO * Goal Range: Low 110 mg/dL - High 140 mg/dL * Correction Factor: 30 mg/dL/unit * Nutritional / Prandial insulin per carb ratio of 1 unit per 15 grams CHO consumed
--- NOTE | 2023-08-04 10:10 | Nephrology Progress Note ---
Date of Service August 04, 2023 Assessment & Plan (1) ASHLY (acute kidney injury): Plan: worsening now Stage 3 ASHLY on CKD w/ presumed baseline creat 1.3. Creatinine 1.3 on several checks this admission. was 1.0 in March and 1.9 in January. no other OP data found. Etiology of acute kidney injuryincludes contrast- induced nephropathy +/- other contributing factors such as HTN emergency on admission; concern for embolic phenomena given embolic stroke on presentation w/ concern for and/or infection playing a role. Patient admitted with baseline renal function but creatinine has been uptrending since contrast load. She is likely > 400 mL UOP past 24 hrs though I/O incomplete. Electrolytes are stable. Renal u/s unremarkable. repeat UA cleared of much inflammation and bacteria but notable for epithelial cells and for 3+ proteinuria. ESR moderately elevated at 57; lactate wnl; C' pending -f/u C' -continue low K diet >check ACR when BP better controlled -lokelma 10 gm tid, for 3 doses today then stops -FR 1.5L daily -strict I/O -torsemide and spironolactone remain on hold; last dose 08/01; ACEI on hold -lasix 40 mg IV bid17 starting today 2 doses She appears euvolemic now but high risk for CHF. Avoid further contrast. NO HD required for now but cannot rule out need. Care coordinated w/ Dr Casillas. (2) Chronic diastolic CHF (congestive heart failure): Plan: She has significant edema but appears to be saturating well on room air. one dose of lasix 08/03 (3) Hypertension: Plan: elevated BP this am > w/ HTN emergency this admission and w/ stable wt but up 3 kg from 08/01 >check VS qid -continue amlodipine and long acting metoprolol -hydralazine not ideal as this w/ CCB likely to contribute to LE edema/complicate rehab and wound healing > continue for now >started lasix 40 mg IV bid17 -cont to hold torsemide, ACEI, daphney antagonist Admission and Anticipated Discharge Date Admission Date: July 29, 2023 Subjective no interval events clinically; denies sob, n/v, worsening edema, orthopnea. Review of Systems 2 Review of Systems: All systems reviewed & are unremarkable except as noted in Subjective Physical Exam 2 Constitutional: well developed, well nourished, + obese and comfortable Eyes: EOM intact bilaterally ENMT: Ears: no external ear abnormality Nose: no external nose abnormality Mouth: + dry oral mucous membranes Neck: no nuchal rigidity Respiratory: normal respiratory effort Auscultation: + diminished lung sounds Cardiovascular: Rate/Rhythm: regular rate and regular rhythm Extremities: + edema (trace dependent, no peripheral) Gastrointestinal (Abdomen): Inspection/Auscultation: normal bowel sounds P ercussion/Palpation: abdomen soft; abdomen nontender Musculoskeletal: Extremities: strength 5/5 throughout Skin: L foot wrapped; R forearm, R pretibial lesions Results & Data Vital Signs (Past 12 Hours) Vital Signs Temp Pulse Resp BP BP Pulse Ox O2 Del Method 08/04/23 08:00 36.2 C L 61 16 177/79 H 97 Room Air 08/04/23 03:03 36.5 C 60 18 136/73 94 Room Air 08/03/23 23:20 36.6 C 61 18 134/67 95 Room Air Laboratory Results 08/04/23 07:49 08/04/23 07:49
[2023-08-04] MEDS: FUROSEMIDE 40 MG/4 ML VIAL IV SCH (12:11)
--- NOTE | 2023-08-04 12:29 | Hospitalist Progress Note ---
Date of Service August 04, 2023 Assessment & Plan (1) CVA (cerebral vascular accident): (2) Weakness: (3) Stroke-like symptoms: Plan: 63-year-old female with PMH uncontrolled DM II, HTN, dyslipidemia, CAD, H/O CA s/p stents, hypothyroidism, RADHA, nocturnal hypoxia, pulmonary hypertension, chronic diastolic heart failure, depression, anxiety, CKD III-IV presented to ER with c/o weakness and fall the morning of admission. Denied hitting head, dizziness, CP, SOB. Patient with reported left sided headache and without focal deficits upon initial exam. Had also reported left sided facial paresthesias the previous day In ER patient found to be hypertensive with BP: 226/94, and hyperglycemic with glucose of 574. She was given Tylenol, two doses of hydralazine 10mg IV with repeat BP 166/69. Given total 15 units of insulin with repeat BSG 365. Initial CT scan head without acute findings. Initial exam upon admission patient without focal deficits and normal speech. Weakness and Headache were initially thought possible to hypertensive encephalopathy, hyperglycemia DDX: TIA, CVA, atypical migraine, hypertensive encephalopathy On day of admission, ER nurse at 17:03 noted that patient having slurred speech and word finding difficulties. Repeat BP: 199/110. BSG high 300's. Some reported decreased sensation left side of face, +slight right sided mouth drooping (appears similar to initial presentation) +expressive aphasia with some slurred speech. Alert and oriented x 3. EOMs intact. No nystagmus, Hearing grossly intact, soft palate elevates symmetrically, shoulder shrug intact, tongue is midline, normal movement, no fasciculations, strength 5/5 bilateral upper extremities, chronically unable to lift legs, pedal pushes and pulls intact bilaterally. Stroke alert called Repeat CT head No acute intracranial hemorrhage, no evidence of acute territorial infarction or other acute intracranial disease process. MRI brain showed small acute infarcts in both occipital lobes Carotid doppler noted mild to mod atherosclerotic plaque. No evidence for hemodynamically significant stenosis Hence patient has Acute bilateral occipital infarcts FILENET ARCHITECT/PT/OT HbA1c is 14.1 Lipid panel noted total cholesterol of 218, LDL 134, HDL 42, Trig 211 CTA head and neck were unremarkable TTE noted EF 60-65%, mod conc LVH, G 1 DD, mod dil LA, mild to mod MR, trace AR, no evidence of AST, trace TR, RVSP 40-50mmHg Reviewed tele. No Afib noted so far Home rosuvastatin increased to 20mg Card eval and recs noted Neuro recs noted Concern for possible embolic nature of infarct. Patient may need anticoagulation However, considering her fall risk and visual issues, will defer anticoag until arrhythmia such as Afib/Aflutter is confirmed Patient needs zio patch testing or loop on discharge Tele reviewed (sinus rhythm, sinus ki) Continue tele monitoring while inpatient (4) Hypertensive urgency: Plan: History of medication noncompliance In ER patient found to be hypertensive with BP: 226/94, and hyperglycemic with glucose of 574. She was given Tylenol, two doses of hydralazine 10mg IV with repeat BP 166/69 Nitropaste applied. Initially home medications of amlodipine, lisinopril, metoprolol succinate given prior to stroke alert called in ER Antihypertensives were initially held once stroke was diagnosed for permissive hypertension These have been resumed and BP trend is better controlled (5) Hyperglycemia: (6) Diabetes mellitus, type II: Plan: History uncontrolled diabetes. History of med occasion noncompliance A1c: 13.3 on 01/17/2023 In ER glucose of 574. Given total 15 units of insulin with repeat BSG 365.VBG: pH: 7.34, pCO2: 50, HCO3 27. Corrected sodium 138 for glucose 574, osmolality: 319 Neurological symptoms present on admission likely from CVA not HHS HbA1c is 14.1 Lipid panel noted total cholesterol of 218, LDL 134, HDL 42, Trig 211 Hence patient has poorly controlled DM and hyperlipidemia as well She reported she has not been taking her insulin for a while due to problems seeing and poor hand/finger dexterity Provided DM education Considering visual problems, may benefit from daily long acting insulin on discharge so that family can help administer Adjusting insulin as appropriate Will determine dose on discharge depending on requirement Continue to monitor (7) Elevated troponin: (8) Non-ST elevation CA (NSTEMI): (9) CAD (coronary artery disease): Plan: Reported history of CAD, CA s/p stents ?in 2019 in [place], [place] Troponin 96.8--> 100-->> 87. EKG sinus rhythm without acute ST changes noted Possible demand ischemia TTE as above Continue aspirin, metoprolol succinate, rosuvastatin Card eval appreciated (10) Foot ulcer, left: Plan: Diabetic foot ulcer left heel Wound nurse recommended getting Podiatry and Orthotics eval Podiatry eval noted. S/p Bedside debridement on 08/01/23 by Director Translation Patient to follow up with wound clinic (11) Recent URI: Plan: Recent URI symptoms with reported improvement Biofire respiratory panel +coronavirus CXR: No acute infiltrate 92% on room air ? Chronic respiratory failure per patient's [id number]. She reports previously patient was prescribed 2 L oxygen to use continuously however patient previously noncompliant so oxygen returned Currently on room air (12) CKD (chronic kidney disease), stage III: Plan: CKD III-IV per outpatient records On admission, BUN: 30, Cr: 1.29. Cr: 1.0 on 03/16/2023, 1.9 on 01/17/2023 ASHLY on CKD Cr peaked at 4.09, trending down to 3.68 today Possibilities include Contrast induced nephropathy, Hypertensive emergency on admission Diuretics were initially held Renal USS reviewed Nephrology restarting some diuretics today Monitor renal function and hyperkalemia (13) Chronic diastolic CHF (congestive heart failure): (14) Pulmonary hypertension: Plan: On sildenafil (15) Anxiety and depression: Plan: Denies suicidal ideations Medication noncompliance Continue escitalopram (16) HLD (hyperlipidemia): Plan: Rosuvastatin increased as above (17) Obesity, morbid, BMI 40.0-49.9: Plan: Lifestyle modifications should be addressed when appropriate during hospital course (18) Hypothyroidism: Plan: Reported history hypothyroidism Not on medications TSH: 2.2 Urine culture growing Klebsiella Possible UTI Sensitivities reviewed Completed Abx Abnormal CT finding As additional impression point, there is a 12 mm left apical opacity. This is indeterminant and may be inflammatory. A follow-up chest CT in 2-3 months time is recommended to document resolution. Patient and son have been notified about need for follow up DVT Prophylaxis Hep sq DNR/DNI as per discussion with pt Previously seen by Dr Webb, as was getting established for local care I spent a total of 45 minutes reviewing notes, outpatient records, labs, medication, coordinating, documenting and providing care for this patient excluding time spent in the performance of separately billed services. Admission and Anticipated Discharge Date Admission Date: July 29, 2023 Subjective Patient seen and examined No new complaints today Physical Exam Constitutional: + well hydrated; no acute distress Eyes: Visual deficits. + Cataract ENMT: external ear and nose normal, oropharynx normal Respiratory: normal respiratory effort, lungs clear to auscultation Cardiovascular: Rate/Rhythm: regular rate and regular rhythm S1 S2 Gastrointestinal (Abdomen): normal bowel sounds, soft, nontender, no hepatosplenomegaly Musculoskeletal: Dressing over left heel Neurologic: PERRL, EOMI, accommodation nl, no face palsy, no dysarthria Psychiatric: A+Ox3, euthymic affect Results & Data Results & Data Vital Signs (Past 12 Hours) Vital Signs Temp Pulse Resp BP BP Pulse Ox O2 Del Method 08/04/23 08:00 36.2 C L 61 16 177/79 H 97 Room Air 08/04/23 03:03 36.5 C 60 18 136/73 94 Room Air Laboratory Results Abnormal lab results 08/03/23 08/03/23 08/03/23 Range/Units 16:24 20:27 20:52 RBC (4.20-5.40) M/uL Hgb (12.0-16.0) g/dl Hct (37.0-47.0) % ESR 57 H (0-30) mm/hr Sodium 133 L (136-145) mmol/L Potassium 5.3 H (3.5-5.1) mmol/L BUN 81 H (6-23) mg/dl Creatinine 3.83 H (0.6-1.2) mg/dl BUN/Creatinine Ratio 21.1 H (10-20) Glucose 143 H (70-99(Fasting)) mg/dl POC Glucose 107 H 141 H (70-99) mg/dl Calcium 8.2 L (8.6-10.3) mg/dl Urine Protein (Negative) U Epithel Cells (Auto) (0-5) /lpf 08/03/23 08/04/23 08/04/23 Range/Units Unknown 05:27 07:47 RBC (4.20-5.40) M/uL Hgb (12.0-16.0) g/dl Hct (37.0-47.0) % ESR (0-30) mm/hr Sodium (136-145) mmol/L Potassium (3.5-5.1) mmol/L BUN (6-23) mg/dl Creatinine (0.6-1.2) mg/dl BUN/Creatinine Ratio (10-20) Glucose (70-99(Fasting)) mg/dl POC Glucose 146 H 138 H (70-99) mg/dl Calcium (8.6-10.3) mg/dl Urine Protein 3+ H (Negative) U Epithel Cells (Auto) >30 H (0-5) /lpf 08/04/23 08/04/23 Range/Units 07:49 11:20 RBC 4.13 L (4.20-5.40) M/uL Hgb 11.3 L (12.0-16.0) g/dl Hct 34.0 L (37.0-47.0) % ESR (0-30) mm/hr Sodium 135 L (136-145) mmol/L Potassium (3.5-5.1) mmol/L BUN 84 H (6-23) mg/dl Creatinine 3.68 H (0.6-1.2) mg/dl BUN/Creatinine Ratio 22.8 H (10-20) Glucose 132 H (70-99(Fasting)) mg/dl POC Glucose 176 H (70-99) mg/dl Calcium 8.4 L (8.6-10.3) mg/dl Urine Protein (Negative) U Epithel Cells (Auto) (0-5) /lpf
[2023-08-05 06:37] LABS: Hematocrit (blood only) 32.1 % (37.0-47.0); Hemoglobin 10.7 g/dl (12.0-16.0); Mean Corpuscular Hemoglobin 27.2 pg (25.0-34.0); Mean Corpuscular Hgb Conc 33.3 g/dL (32.0-36.0); Mean Corpuscular Volume 81.7 fL (80.0-100.0); Mean Platelet Volume 9.7 fL (9.4-12.4); Platelet Count 307 K/uL (130-400); RDW Coefficient of Variation 13.7 % (11.5-14.5); RDW Standard Deviation 40.6 fL (36.4-46.3); Red Blood Count 3.93 M/uL (4.20-5.40); White Blood Count 7.87 K/ul (4.8-10.8)
[2023-08-05 07:03] LABS: BUN Creatinine Ratio 30.2 (10-20); Calcium 8.5 mg/dl (8.6-10.3); Creatinine Clr Calc Pharmacy 22.1 ml/min; Est GFR (African American) 18.5 ml/min; Potassium 4.4 mmol/L (3.5-5.1)
--- NOTE | 2023-08-05 08:34 | Nephrology Progress Note ---
Date of Service August 05, 2023 Assessment & Plan (1) ASHLY (acute kidney injury): Plan: improving Stage 3 ASHLY on CKD w/ presumed baseline creat 1.3. Creatinine 1.3 on several checks this admission. was 1.0 in March and 1.9 in January. no other OP data found. Etiology of acute kidney injury multifactorial including contrast-induced nephropathy +/- other contributing factors such as HTN emergency on admission; concern for embolic phenomena given embolic stroke on presentation w/ concern for and/or infection playing a role. Patient admitted with baseline renal function but creatinine has been uptrending since contrast load. She is likely > 400 mL UOP past 24 hrs though I/O incomplete. Electrolytes are stable. Renal u/s unremarkable. repeat UA cleared of much inflammation and bacteria but notable for epithelial cells and for 3+ proteinuria. ESR moderately elevated at 57; lactate wnl; C' pending -f/u C' -continue low K diet >check ACR ordered for today -lokelma 10 gm tid, 2 day course completed yesterday > will continue veltassa daily -FR 1.5L daily -strict I/O -torsemide and spironolactone remain on hold; last dose 08/01; ACEI on hold -lasix 40 mg IV bid17 to continue She appears euvolemic now but high risk for CHF. Avoid further contrast. NO HD required for now but cannot rule out need. (2) Chronic diastolic CHF (congestive heart failure): Plan: She has significant edema but appears to be saturating well on room air. one dose of lasix 08/03 (3) Hypertension: Plan: elevated BP overnigt and in AM > w/ HTN emergency this admission and w/ stable wt but up 3 kg from 08/01 >check VS qid to continue -continue amlodipine and long acting metoprolol -hydralazine not ideal as this w/ CCB likely to contribute to LE edema/complicate rehab and wound healing > continue for now >started lasix 40 mg IV bid17 08/04 -cont to hold torsemide, ACEI, daphney antagonist Admission and Anticipated Discharge Date Admission Date: July 29, 2023 Subjective seen just after midday meal of which she ate 100%. no c/o dyspnea, uncontrolled pain Review of Systems 2 Review of Systems: All systems reviewed & are unremarkable except as noted in Subjective Physical Exam 2 Constitutional: well developed, well nourished, + obese and comfortable Eyes: EOM intact bilaterally ENMT: Ears: no external ear abnormality Nose: no external nose abnormality Mouth: + dry oral mucous membranes Neck: no nuchal rigidity Respiratory: normal respiratory effort Auscultation: + diminished lung sounds and + crackles (fine bibasilar) Cardiovascular: RRR, no murmur, no edema Rate/Rhythm: regular rate and regular rhythm Extremities: + edema (2+ distal) Gastrointestinal (Abdomen): Inspection/Auscultation: normal bowel sounds P ercussion/Palpation: abdomen soft; abdomen nontender Musculoskeletal: Extremities: strength 5/5 throughout and + lower leg abnormality (LLE in soft boot) Skin: no rashes, warm and dry Results & Data Vital Signs (Past 12 Hours) Vital Signs Temp Pulse Pulse Resp BP Pulse Ox O2 Del Method 08/05/23 07:13 36.7 C 61 16 141/68 H 96 Room Air 08/05/23 02:56 36.4 C L 60 18 167/66 H 95 Room Air 08/04/23 23:00 60 08/04/23 22:51 36.5 C 60 18 114/68 95 Room Air Laboratory Results 08/05/23 06:02 08/05/23 06:02
[2023-08-05] MEDS: PATIROMER CALCIUM SORBITEX 8.4 GM PACK PO SCH (12:00)
--- NOTE | 2023-08-05 14:49 | Hospitalist Progress Note ---
Date of Service August 05, 2023 Assessment & Plan (1) CVA (cerebral vascular accident): (2) Weakness: (3) Stroke-like symptoms: Plan: 63-year-old female with PMH uncontrolled DM II, HTN, dyslipidemia, CAD, H/O [place] s/p stents, hypothyroidism, RADHA, nocturnal hypoxia, pulmonary hypertension, chronic diastolic heart failure, depression, anxiety, CKD III-IV presented to ER with c/o weakness and fall the morning of admission. Denied hitting head, dizziness, CP, SOB. Patient with reported left sided headache and without focal deficits upon initial exam. Had also reported left sided facial paresthesias the previous day In ER patient found to be hypertensive with BP: 226/94, and hyperglycemic with glucose of 574. She was given Tylenol, two doses of hydralazine 10mg IV with repeat BP 166/69. Given total 15 units of insulin with repeat BSG 365. Initial CT scan head without acute findings. Initial exam upon admission patient without focal deficits and normal speech. Weakness and Headache were initially thought possible to hypertensive encephalopathy, hyperglycemia DDX: TIA, CVA, atypical migraine, hypertensive encephalopathy On day of admission, ER nurse at 17:03 noted that patient having slurred speech and word finding difficulties. Repeat BP: 199/110. BSG high 300's. Some reported decreased sensation left side of face, +slight right sided mouth drooping (appears similar to initial presentation) +expressive aphasia with some slurred speech. Alert and oriented x 3. EOMs intact. No nystagmus, Hearing grossly intact, soft palate elevates symmetrically, shoulder shrug intact, tongue is midline, normal movement, no fasciculations, strength 5/5 bilateral upper extremities, chronically unable to lift legs, pedal pushes and pulls intact bilaterally. Stroke alert called--Repeat CT head No acute intracranial hemorrhage, no evidence of acute territorial infarction or other acute intracranial disease process. Acute CVA --MRI brain:Small acute infarcts in both occipital lobes. Consider embolic infarcts. --Carotid USD:Mild to moderate atherosclerotic plaque. No evidence for a hemodynamically significant stenosis. Exam mildly compromised by suboptimal penetration. --Head/Neck CTA:There is no hemorrhage, mass effect, or evidence of acute territorial ischemia by CT criteria. Tiny foci of acute ischemia seen by MRI are not apparent on CT.. Unremarkable CT angiogram of the brain. Unremarkable CT angiogram of the neck. --HbA1c is 14.1 --Lipid panel noted total cholesterol of 218, LDL 134, HDL 42, Trig 211 --TTE noted EF 60-65%, mod conc LVH, G 1 DD, mod dil LA, mild to mod MR, trace AR, no evidence of AST, trace TR, RVSP 40-50mmHg -- Rosuvastatin increased to 20 mg daily -- Continue aspirin 325 mg daily --Speech therapy, PT OT evaluated --No rhythm issues on telemetry Appreciate cardiology, neurology input Given significant fall risk, visual issues, no anticoagulation unless cleared arrhythmias confirmed Needs Holter monitor arranged as outpatient Plan to discharge to rehab facility as able (4) Hypertensive urgency: Plan: H/O Medication noncompliance In ER patient found to be hypertensive with BP: 226/94, and hyperglycemic with glucose of 574. She was given Tylenol, two doses of hydralazine 10mg IV with repeat BP 166/69 Antihypertensives were initially held to allow permissive hypertension Continue amlodipine, hydralazine, metoprolol Lisinopril held due to ASHLY Monitor BP (5) Hyperglycemia: (6) Diabetes mellitus, type II: Plan: Uncontrolled DM II H/O medication noncompliance (reported she has not been taking her insulin for a while due to problems seeing and poor hand/finger dexterity) A1c: 13.3 on 01/17/2023 HbA1c is 14.1 Provided DM education Considering visual problems, may benefit from daily long acting insulin on discharge Adjusting insulin as appropriate Monitor BGs (7) Elevated troponin: (8) Non-ST elevation AZ (NSTEMI): (9) CAD (coronary artery disease): Plan: Reported history of CAD, [place] s/p stents ?in 2019 in [place], [place] Troponin 96.8--> 100-->> 87. EKG sinus rhythm without acute ST changes noted Possible demand ischemia TTE as above Continue aspirin, metoprolol succinate, rosuvastatin Appreciate cardiology input (10) Foot ulcer, left: Plan: Diabetic foot ulcer left heel Appreciate podiatry input S/p Bedside debridement on 08/01/23 by Dental Ceramist Assistant Continue wound care Needs follow-up with wound clinic on discharge (11) Recent URI: Plan: Recent URI symptoms with reported improvement Biofire respiratory panel +coronavirus CXR: No acute infiltrate ? Chronic respiratory failure per patient's [id number]. She reports previously patient was prescribed 2 L oxygen to use continuously however patient previously noncompliant so oxygen returned Currently saturating well on room air (12) CKD (chronic kidney disease), stage III: Plan: ASHLY on CKD III-IV Likely due to Contrast induced nephropathy, Hypertensive emergency on admission --Renal USD:No evidence of hydronephrosis. Cr peaked at 4.09, trending down Cr 2.95 today Home diuretics held Monitor volume status Avoid nephrotoxic agents as able (13) Chronic diastolic CHF (congestive heart failure): Plan: Continue diuretics per nephrology Hyperkalemia Received sodium zirconium Spironolactone, lisinopril on hold Monitor (14) Pulmonary hypertension: Plan: On sildenafil (15) Anxiety and depression: Plan: Denies suicidal ideations Medication noncompliance Continue escitalopram (16) HLD (hyperlipidemia): Plan: Continue Rosuvastatin (17) Obesity, morbid, BMI 40.0-49.9: Plan: Lifestyle modifications (18) Hypothyroidism: Plan: Reported history hypothyroidism Not on medications TSH: 2.2 UTI--POA Urine culture grew Klebsiella Completed antibiotic course Left apical opacity -CT showed:There is a 12 mm left apical opacity. This is indeterminant and may be inflammatory. A follow-up chest CT in 2-3 months time is recommended to document resolution. -Patient and patient's son aware of the finding and need for follow-up as outpatient Patient will need repeat imaging in 2 to 3 months DVT Px Heparin SQ Code Status DNR/DNI Admission and Anticipated Discharge Date Admission Date: July 29, 2023 Subjective Patient is seen and examined at bedside Sitting in chair comfortably during my encounter Renal function slowly improving Offers no new complaints Denies any chest pain, dyspnea, dizziness, nausea, vomiting, abdominal pain Review of Systems Review of Systems: All systems reviewed & are unremarkable except as noted in Subjective Physical Exam Physical Exam: Physical Exam: Vitals signs as noted above General Appearance:Obese, no apparent distress Head: normocephalic, Atraumatic Eyes: normal inspection, EOMI, Chronic poor vision Neck: supple, Trachea midline Respiratory/Chest: Decreased breath sounds, CTA, No accessory muscle use Cardiovascular: S1, S2, No murmur Abdomen/GI:Soft, Non tender, Bowel sounds present Extremities/Musculoskeletal:normal inspection, 2+ pedal edema Neurologic/Psych:AAOX3, grossly no focal neurological deficits Skin: normal color, warm Results & Data Results & Data Vital Signs (Past 12 Hours) Vital Signs Temp Pulse Resp BP Pulse Ox O2 Del Method 08/05/23 11:25 36.5 C 59 L 18 120/64 96 Room Air 08/05/23 07:13 36.7 C 61 16 141/68 H 96 Room Air 08/05/23 02:56 36.4 C L 60 18 167/66 H 95 Room Air Laboratory Results Short CBC 08/05/23 Range/Units 06:02 WBC 7.87 (4.8-10.8) K/ul Hgb 10.7 L (12.0-16.0) g/dl Hct 32.1 L (37.0-47.0) % Plt Count 307 (130-400) K/uL BMP 08/05/23 06:02 Sodium 137 Potassium 4.4 Chloride 104 Carbon Dioxide 23 BUN 89 H Creatinine 2.95 H D Glucose 157 H Calcium 8.5 L
[2023-08-06 07:50] LABS: Hematocrit (blood only) 33.3 % (37.0-47.0); Hemoglobin 10.7 g/dl (12.0-16.0); Mean Corpuscular Hemoglobin 26.7 pg (25.0-34.0); Mean Corpuscular Hgb Conc 32.1 g/dL (32.0-36.0); Mean Platelet Volume 9.8 fL (9.4-12.4); Platelet Count 317 K/uL (130-400); RDW Standard Deviation 42.2 fL (36.4-46.3); Red Blood Count 4.01 M/uL (4.20-5.40); White Blood Count 7.83 K/ul (4.8-10.8)
[2023-08-06 08:06] LABS: Calcium 8.8 mg/dl (8.6-10.3); Creatinine Clr Calc Pharmacy 30.2 ml/min; Est GFR (Non-African American) 23.3 ml/min
[2023-08-06] MEDS: LANTUS PER UNIT CHARGE SC SCH (09:21)
--- NOTE | 2023-08-06 11:06 | Nephrology Progress Note ---
Date of Service August 06, 2023 Assessment & Plan (1) ASHLY (acute kidney injury): Plan: further improving Stage 3 ASHLY on CKD w/ presumed baseline creat 1.3. Creatinine 1.3 on several checks this admission. was 1.0 in March and 1.9 in January. no other OP data found. Etiology of acute kidney injury multifactorial including contrast-induced nephropathy +/- other contributing factors such as HTN emergency on admission; concern for embolic phenomena given embolic stroke on presentation w/ concern for and/or infection playing a role. Patient admitted with baseline renal function but creatinine has been uptrending since contrast load. Electrolytes are stable but she is prone to hyperkalemia. Renal u/s unremarkable. repeat UA cleared of much inflammation and bacteria but notable for epithelial cells and for 3+ proteinuria. ESR moderately elevated at 57; lactate wnl; C' pending -f/u pending C' -continue low K diet >check prot/creat urine ordered for today >>changed IV lasix to torsemide 40 mg daily -continue veltassa daily; s/p 2 day course of TID lokelma -FR 1.5L daily -strict I/O -spironolactone remains on hold; last dose 08/01; ACEI on hold She appears euvolemic now but high risk for CHF. Avoid further contrast. (2) Chronic diastolic CHF (congestive heart failure): Plan: She has significant edema but appears to be saturating well on room air. (3) Hypertension: Plan: improving > w/ HTN emergency this admission and w/ daily wt 112.7 on 08/01 > 115.6 08/03 > 112.3 08/05 >check VS qid to continue one more day -continue daily standing weight -continue amlodipine and long acting metoprolol -hydralazine not ideal as this w/ CCB likely to contribute to LE edema/complicate rehab and wound healing > continue for now >started lasix 40 mg IV bid17 08/04 -cont to hold torsemide, ACEI, daphney antagonist Admission and Anticipated Discharge Date Admission Date: July 29, 2023 Subjective no interval events; hoping she can go to rehab soon; denies pruritis or rash; feels edema improved; hoping for d/c to rehab soon; seen on evenign rounds Review of Systems 2 Review of Systems: All systems reviewed & are unremarkable except as noted in Subjective Physical Exam 2 Constitutional: well developed, well nourished, + obese and comfortable Eyes: EOM intact bilaterally ENMT: Ears: no external ear abnormality Nose: no external nose abnormality Mouth: + dry oral mucous membranes Neck: no nuchal rigidity Respiratory: normal respiratory effort Auscultation: + diminished lung sounds Cardiovascular: RRR, no murmur, no edema Rate/Rhythm: regular rate and regular rhythm Extremities: + edema (2+ distal) Gastrointestinal (Abdomen): Inspection/Auscultation: normal bowel sounds P ercussion/Palpation: abdomen soft; abdomen nontender Musculoskeletal: Extremities: strength 5/5 throughout and + lower leg abnormality (LLE in soft boot) Skin: macular rash posterior L leg/popliteal region; faint rash on chest/back Results & Data Vital Signs (Past 12 Hours) Vital Signs Temp Pulse Pulse Resp BP Pulse Ox O2 Del Method 08/06/23 07:27 36.6 C 59 L 16 142/77 H 94 Room Air 08/06/23 03:38 36.6 C 59 L 14 121/70 96 Room Air 08/05/23 23:26 58 L 08/05/23 23:20 36.5 C 60 16 129/74 92 Room Air Laboratory Results 08/06/23 07:17 08/06/23 07:17
--- NOTE | 2023-08-06 15:26 | Hospitalist Progress Note ---
Date of Service August 06, 2023 Assessment & Plan (1) CVA (cerebral vascular accident): (2) Weakness: (3) Stroke-like symptoms: Plan: 63-year-old female with PMH uncontrolled DM II, HTN, dyslipidemia, CAD, H/O [place] s/p stents, hypothyroidism, RADHA, nocturnal hypoxia, pulmonary hypertension, chronic diastolic heart failure, depression, anxiety, CKD III-IV presented to ER with c/o weakness and fall the morning of admission. Denied hitting head, dizziness, CP, SOB. Patient with reported left sided headache and without focal deficits upon initial exam. Had also reported left sided facial paresthesias the previous day In ER patient found to be hypertensive with BP: 226/94, and hyperglycemic with glucose of 574. She was given Tylenol, two doses of hydralazine 10mg IV with repeat BP 166/69. Given total 15 units of insulin with repeat BSG 365. Initial CT scan head without acute findings. Initial exam upon admission patient without focal deficits and normal speech. Weakness and Headache were initially thought possible to hypertensive encephalopathy, hyperglycemia DDX: TIA, CVA, atypical migraine, hypertensive encephalopathy On day of admission, ER nurse at 17:03 noted that patient having slurred speech and word finding difficulties. Repeat BP: 199/110. BSG high 300's. Some reported decreased sensation left side of face, +slight right sided mouth drooping (appears similar to initial presentation) +expressive aphasia with some slurred speech. Alert and oriented x 3. EOMs intact. No nystagmus, Hearing grossly intact, soft palate elevates symmetrically, shoulder shrug intact, tongue is midline, normal movement, no fasciculations, strength 5/5 bilateral upper extremities, chronically unable to lift legs, pedal pushes and pulls intact bilaterally. Stroke alert called--Repeat CT head No acute intracranial hemorrhage, no evidence of acute territorial infarction or other acute intracranial disease process. Acute CVA --MRI brain:Small acute infarcts in both occipital lobes. Consider embolic infarcts. --Carotid USD:Mild to moderate atherosclerotic plaque. No evidence for a hemodynamically significant stenosis. Exam mildly compromised by suboptimal penetration. --Head/Neck CTA:There is no hemorrhage, mass effect, or evidence of acute territorial ischemia by CT criteria. Tiny foci of acute ischemia seen by MRI are not apparent on CT.. Unremarkable CT angiogram of the brain. Unremarkable CT angiogram of the neck. --HbA1c is 14.1 --Lipid panel noted total cholesterol of 218, LDL 134, HDL 42, Trig 211 --TTE noted EF 60-65%, mod conc LVH, G 1 DD, mod dil LA, mild to mod MR, trace AR, no evidence of AST, trace TR, RVSP 40-50mmHg -- Rosuvastatin increased to 20 mg daily -- Continue aspirin 325 mg daily --Speech therapy, PT OT evaluated --No rhythm issues on telemetry Appreciate cardiology, neurology input Given significant fall risk, visual issues, no anticoagulation unless cleared arrhythmias confirmed Needs Holter monitor arranged as outpatient Plan to discharge to rehab facility as able Continue current management (4) Hypertensive urgency: Plan: H/O Medication noncompliance In ER patient found to be hypertensive with BP: 226/94, and hyperglycemic with glucose of 574. She was given Tylenol, two doses of hydralazine 10mg IV with repeat BP 166/69 Antihypertensives were initially held to allow permissive hypertension Continue amlodipine, hydralazine, metoprolol Lisinopril held due to ASHLY Monitor BP BP relatively low today (5) Hyperglycemia: (6) Diabetes mellitus, type II: Plan: Uncontrolled DM II H/O medication noncompliance (reported she has not been taking her insulin for a while due to problems seeing and poor hand/finger dexterity) A1c: 13.3 on 01/17/2023 HbA1c is 14.1 Provided DM education Considering visual problems, may benefit from daily long acting insulin on discharge Adjusting insulin as appropriate Monitor BGs (7) Elevated troponin: (8) Non-ST elevation IA (NSTEMI): (9) CAD (coronary artery disease): Plan: Reported history of CAD, [place] s/p stents ?in 2020 in [place], [place] Troponin 96.8--> 100-->> 87. EKG sinus rhythm without acute ST changes noted Possible demand ischemia TTE as above Continue aspirin, metoprolol succinate, rosuvastatin Appreciate cardiology input (10) Foot ulcer, left: Plan: Diabetic pressure ulcer of L heel, stage 3, POA Appreciate podiatry input S/p Bedside debridement on 08/01/23 by Corrections Officer Continue wound care Needs follow-up with wound clinic on discharge (11) Recent URI: Plan: Recent URI symptoms with reported improvement Biofire respiratory panel +coronavirus CXR: No acute infiltrate ? Chronic respiratory failure per patient's [id number]. She reports previously patient was prescribed 2 L oxygen to use continuously however patient previously noncompliant so oxygen returned Currently saturating well on room air (12) CKD (chronic kidney disease), stage III: Plan: ASHLY on CKD III-IV Likely due to Contrast induced nephropathy, Hypertensive emergency on admission --Renal USD:No evidence of hydronephrosis. Cr peaked at 4.09, trending down Cr 2.1 today Monitor volume status Avoid nephrotoxic agents as able Renal function continues to improve (13) Chronic diastolic CHF (congestive heart failure): Plan: IV Lasix changed to torsemide 40 mg daily Hyperkalemia Received sodium zirconium Spironolactone, lisinopril on hold Monitor (14) Pulmonary hypertension: Plan: On sildenafil (15) Anxiety and depression: Plan: Denies suicidal ideations Medication noncompliance Continue escitalopram (16) HLD (hyperlipidemia): Plan: Continue Rosuvastatin (17) Obesity, morbid, BMI 40.0-49.9: Plan: Lifestyle modifications (18) Hypothyroidism: Plan: Reported history hypothyroidism Not on medications TSH: 2.2 UTI--POA Urine culture grew Klebsiella Completed antibiotic course Left apical opacity -CT showed:There is a 12 mm left apical opacity. This is indeterminant and may be inflammatory. A follow-up chest CT in 2-3 months time is recommended to document resolution. -Patient and patient's son aware of the finding and need for follow-up as outpatient Patient will need repeat imaging in 2 to 3 months DVT Px Heparin SQ Code Status DNR/DNI Admission and Anticipated Discharge Date Admission Date: July 29, 2023 Subjective Patient is seen and examined at bedside No new complaints Less cough today Denies any chest pain, dyspnea, dizziness, nausea, vomiting, abdominal pain Review of Systems Review of Systems: All systems reviewed & are unremarkable except as noted in Subjective Physical Exam Physical Exam: Physical Exam: Vitals signs as noted above General Appearance:Obese, no apparent distress Head: normocephalic, Atraumatic Eyes: normal inspection, EOMI, Chronic poor vision Neck: supple, Trachea midline Respiratory/Chest: Decreased breath sounds, CTA, No accessory muscle use Cardiovascular: S1, S2, No murmur Abdomen/GI:Soft, Non tender, Bowel sounds present Extremities/Musculoskeletal:normal inspection, 2+ pedal edema Neurologic/Psych:AAOX3, grossly no focal neurological deficits Skin: normal color, warm Results & Data Results & Data Vital Signs (Past 12 Hours) Vital Signs Temp Pulse Pulse Resp BP Pulse Ox O2 Del Method 08/06/23 15:11 55 L 08/06/23 11:13 36.5 C 60 16 102/65 95 Room Air 08/06/23 08:00 55 L 08/06/23 08:00 Room Air 08/06/23 07:27 36.6 C 59 L 16 142/77 H 94 Room Air 08/06/23 03:38 36.6 C 59 L 14 121/70 96 Room Air Laboratory Results Short CBC 08/06/23 Range/Units 07:17 WBC 7.83 (4.8-10.8) K/ul Hgb 10.7 L (12.0-16.0) g/dl Hct 33.3 L (37.0-47.0) % Plt Count 317 (130-400) K/uL BMP 08/06/23 07:17 Sodium 139 Potassium 4.0 Chloride 104 Carbon Dioxide 28 BUN 80 H Creatinine 2.16 H D Glucose 129 H Calcium 8.8
[2023-08-06 15:49] LABS: Creatinine Urine Random 23.5 mg/dl; Total Protein Urine Random 163.7 mg/dl (0-11.9)
[2023-08-06 17:23] LABS: Complement C3 124 mg/dL (83-193); Complement Total(CH50) >60 U/mL (31-60)
--- NOTE | 2023-08-07 03:07 | Communication Note ---
Date of Service: August 07, 2023 Notified by RN of staff needlestick injury during care of patient. Clinical coordinator requesting for requisite lab work to be ordered. Will relay to AM provider as HIV consent from patient needed prior to blood draw.
[2023-08-07] MEDS: TORSEMIDE 20 MG TAB PO SCH (08:44)
[2023-08-07 10:21] LABS: BUN Creatinine Ratio 36.6 (10-20); Creatinine Clr Calc Pharmacy 33.9 ml/min; Est GFR (African American) 31.3 ml/min; Potassium 3.9 mmol/L (3.5-5.1)
--- NOTE | 2023-08-07 11:46 | Pharmacy Report ---
Pharmacy Glycemic Short Note 2 - Date of Service August 07, 2023 - Glycemic Short BSG Results (Last 24 hours): 08/06/23 08/06/23 08/07/23 15:58 20:07 07:26 Glucose POC Glucose 141 H 154 H 152 H 08/07/23 08/07/23 09:47 11:09 Glucose 241 H POC Glucose 211 H OUTPATIENT ANTIDIABETIC REGIMEN: * Metformin 500mg PO BID * Trulicity (has not been taking for several months) * Levemir 45 units SC BID HbA1c 14.1% (07/30/23) previously 13.3% (01/17/23) ASSESSMENT: 08/07: * Maricel received 45 units of insulin yesterday (24 were basal) * Basal insulin increased by 20% yesterday. Fasting BSG acceptable this AM, continue. * Novolog tightened over the past few days as ASHLY has been improving 08/04: * BSGs ranging 90-167 mg/dL yesterday, received 9 units of SC bolus only (basal held completely) * Fasting BSG elevated at 146 mg/dL this morning - will restart basal insulin this morning * Do not anticipate any changes to Novolog parameters today 08/03: * Patient received total of 30 units of insulin yesterday, of which 20 units were basal insulin. Insulin needs significantly decreasing each day in setting of ASHLY. Scr worsening more this AM. * Plan to decrease basal this evening ~50% to hopefully avoid any hypoglycemia. Will need to adjust basal insulin as renal function improves * No change to CF/CR for now 08/02: * Patients insulin needs have significantly decreased over the past 48 hours. * Yesterday she received a total of 38 units of insulin (decreased from 57 units on 07/31) with majority of BSGs below goal * 08/01: 30 units Lantus + 8 units Novolog * Fasting hypoglycemia despite 33% decrease in Lantus dose yesterday. Will further decrease today. * Worsening renal function likely contributing to decreased needs. Scr 2.99 mg/dl today. 07/31 * Patient received total of 116 units of insulin yesterday + insulin drip (running part of the day) * Insulin drip d/c yesterday afternoon. Fasting BSG 82 mg/dL - will scale back on basal insulin ~25% this morning, and will utilize scale for HS. Estimated basal needs likely closer to ~60 units/day * Loosened CF/CR this AM 07/30 * Maricel was admitted yesterday evening with a headache and subsequently found to have a CVA as well as likely HHS. She has a history of type 2 diabetes. Pharmacy has been consulted to assist with glycemic management. * BSG on admission 574, multiple regular IV insulin boluses yesterday did not correct the hyperglycemia so she was subsequently started on an insulin infusion. * The insulin infusion was stopped overnight and then resumed this AM to help transition to SQ insulin. As of this AM she used approximately 65 units of insulin overnight in 8 hours. Would estimated basal needs at approximately 90- 100 units daily which coincides with home regimen fo 45 units twice daily. Approximately half estimated basal needs given this AM, scale added at bedtime based on BSG for the remaining basal dosage. * Insulin drip stopped this afternoon and Novolog initiated based on home basal dosage and estimated daily drip usage per the SQ insulin dose calculator starting with dinner. Discussed plan with Dr. Casillas this AM. * She is only IV ceftriaxone and doxycycline. She was on IV fluids of 1/2NS +20KCl which was just discontinued. PLAN FOR INPATIENT GLYCEMIC CONTROL: * Hold outpatient oral diabetes medications * Basal insulin * Lantus 24 units SC daily * Bolus insulin * NovoLog per scale ACHS or Q6hrs while NPO * Goal Range: Low 110 mg/dL - High 140 mg/dL * Correction Factor: 30 mg/dL/unit * Nutritional / Prandial insulin per carb ratio of 1 unit per 9 grams CHO consumed
--- NOTE | 2023-08-07 12:20 | Communication Note ---
Date of Service: August 07, 2023 contacted by hospitalist to see if pt can be d/c today; I'm rounding at dialysis currently and won't be able to assess before late this PM but have reviewed labs/meds/ chart review OK for d/c from neph standpoint RECOMMEND- -d/c on -torsemide 40 mg daily -veltassa 8.4 gm daily -1.5L FR -STANDING weight in AM MWF -low Na diet -bmp on x 3 wks -hopsital d/c appt with nephro any physician jered olson in 2 wks w/ bmp prior presentation and log of BP, wts to come along to visit >>HOLD spironolactone, lisinopril at d/c; nephro can reeval for when to start Care coordinated w/ Dr Fry
--- NOTE | 2023-08-07 12:31 | Hospitalist Progress Note ---
Date of Service August 07, 2023 Assessment & Plan (1) CVA (cerebral vascular accident): (2) Weakness: (3) Stroke-like symptoms: Plan: 63-year-old female with PMH uncontrolled DM II, HTN, dyslipidemia, CAD, H/O TN s/p stents, hypothyroidism, RADHA, nocturnal hypoxia, pulmonary hypertension, chronic diastolic heart failure, depression, anxiety, CKD III-IV presented to ER with c/o weakness and fall the morning of admission. Denied hitting head, dizziness, CP, SOB. Patient with reported left sided headache and without focal deficits upon initial exam. Had also reported left sided facial paresthesias the previous day In ER patient found to be hypertensive with BP: 226/94, and hyperglycemic with glucose of 574. She was given Tylenol, two doses of hydralazine 10mg IV with repeat BP 166/69. Given total 15 units of insulin with repeat BSG 365. Initial CT scan head without acute findings. Initial exam upon admission patient without focal deficits and normal speech. Weakness and Headache were initially thought possible to hypertensive encephalopathy, hyperglycemia DDX: TIA, CVA, atypical migraine, hypertensive encephalopathy On day of admission, ER nurse at 17:03 noted that patient having slurred speech and word finding difficulties. Repeat BP: 199/110. BSG high 300's. Some reported decreased sensation left side of face, +slight right sided mouth drooping (appears similar to initial presentation) +expressive aphasia with some slurred speech. Alert and oriented x 3. EOMs intact. No nystagmus, Hearing grossly intact, soft palate elevates symmetrically, shoulder shrug intact, tongue is midline, normal movement, no fasciculations, strength 5/5 bilateral upper extremities, chronically unable to lift legs, pedal pushes and pulls intact bilaterally. Stroke alert called--Repeat CT head No acute intracranial hemorrhage, no evidence of acute territorial infarction or other acute intracranial disease process. Acute CVA --MRI brain:Small acute infarcts in both occipital lobes. Consider embolic infarcts. --Carotid USD:Mild to moderate atherosclerotic plaque. No evidence for a hemodynamically significant stenosis. Exam mildly compromised by suboptimal penetration. --Head/Neck CTA:There is no hemorrhage, mass effect, or evidence of acute territorial ischemia by CT criteria. Tiny foci of acute ischemia seen by MRI are not apparent on CT.. Unremarkable CT angiogram of the brain. Unremarkable CT angiogram of the neck. --HbA1c is 14.1 --Lipid panel noted total cholesterol of 218, LDL 134, HDL 42, Trig 211 --TTE noted EF 60-65%, mod conc LVH, G 1 DD, mod dil LA, mild to mod MR, trace AR, no evidence of AST, trace TR, RVSP 40-50mmHg -- Rosuvastatin increased to 20 mg daily -- Continue aspirin 325 mg daily --Speech therapy, PT OT evaluated --No rhythm issues on telemetry Appreciate cardiology, neurology input Given significant fall risk, visual issues, no anticoagulation unless cleared arrhythmias confirmed Needs Holter monitor arranged as outpatient Plan to discharge to rehab facility today Needs follow-up with neurology on discharge (4) Hypertensive urgency: Plan: H/O Medication noncompliance In ER patient found to be hypertensive with BP: 226/94, and hyperglycemic with glucose of 574. She was given Tylenol, two doses of hydralazine 10mg IV with repeat BP 166/69 Antihypertensives were initially held to allow permissive hypertension Continue amlodipine, hydralazine, metoprolol Lisinopril held due to ASHLY Monitor BP BP stable (5) Hyperglycemia: (6) Diabetes mellitus, type II: Plan: Uncontrolled DM II H/O medication noncompliance (reported she has not been taking her insulin for a while due to problems seeing and poor hand/finger dexterity) A1c: 13.3 on 01/17/2023 HbA1c is 14.1 Provided DM education Considering visual problems, may benefit from daily long acting insulin on discharge--defer to PCP Adjusting insulin as appropriate Monitor BGs (7) Elevated troponin: (8) Non-ST elevation TN (NSTEMI): (9) CAD (coronary artery disease): Plan: Reported history of CAD, TN s/p stents ?in 2020 in [place], [place] Troponin 96.8--> 100-->> 87. EKG sinus rhythm without acute ST changes noted Possible demand ischemia TTE as above Continue aspirin, metoprolol succinate, rosuvastatin Appreciate cardiology input (10) Foot ulcer, left: Plan: Diabetic pressure ulcer of L heel, stage 3, POA Appreciate podiatry input S/p Bedside debridement on 08/01/23 by [employer] Continue wound care Needs follow-up with wound clinic on discharge (11) Recent URI: Plan: Recent URI symptoms with reported improvement [employer] respiratory panel +coronavirus CXR: No acute infiltrate ? Chronic respiratory failure per patient's [id number]. She reports previously patient was prescribed 2 L oxygen to use continuously however patient previously noncompliant so oxygen returned Currently saturating well on room air (12) CKD (chronic kidney disease), stage III: Plan: ASHLY on CKD III-IV Likely due to Contrast induced nephropathy, Hypertensive emergency on admission --Renal USD:No evidence of hydronephrosis. Cr peaked at 4.09, trending down Cr 1.9 today Monitor volume status Avoid nephrotoxic agents as able Needs follow-up with nephrology on discharge (13) Chronic diastolic CHF (congestive heart failure): Plan: IV Lasix changed to torsemide 40 mg daily Hyperkalemia Received sodium zirconium Spironolactone, lisinopril on hold Continue Veltassa per nephrology Monitor (14) Pulmonary hypertension: Plan: On sildenafil (15) Anxiety and depression: Plan: Denies suicidal ideations Medication noncompliance Continue escitalopram (16) HLD (hyperlipidemia): Plan: Continue Rosuvastatin (17) Obesity, morbid, BMI 40.0-49.9: Plan: Lifestyle modifications (18) Hypothyroidism: Plan: Reported history hypothyroidism Not on medications TSH: 2.2 UTI--POA Urine culture grew Klebsiella Completed antibiotic course Left apical opacity -CT showed:There is a 12 mm left apical opacity. This is indeterminant and may be inflammatory. A follow-up chest CT in 2-3 months time is recommended to document resolution. -Patient and patient's son aware of the finding and need for follow-up as outpatient Patient will need repeat imaging in 2 to 3 months DVT Px Heparin SQ Code Status DNR/DNI Disposition Admission and Anticipated Discharge Date Admission Date: July 29, 2023 Subjective Patient is seen and examined at bedside States feeling well No complaints Denies any chest pain, dyspnea, dizziness, nausea, vomiting, abdominal pain Cough resolved Plan to discharge to [facility] today Review of Systems Review of Systems: All systems reviewed & are unremarkable except as noted in Subjective Physical Exam Physical Exam: Physical Exam: Vitals signs as noted above General Appearance:Obese, no apparent distress Head: normocephalic, Atraumatic Eyes: normal inspection, EOMI, Chronic poor vision Neck: supple, Trachea midline Respiratory/Chest: Decreased breath sounds, CTA, No accessory muscle use Cardiovascular: S1, S2, No murmur Abdomen/GI:Soft, Non tender, Bowel sounds present Extremities/Musculoskeletal:normal inspection, 2+ pedal edema Neurologic/Psych:AAOX3, grossly no focal neurological deficits Skin: normal color, warm Results & Data Results & Data Vital Signs (Past 12 Hours) Vital Signs Temp Pulse Pulse Resp BP Pulse Ox O2 Del Method 08/07/23 11:08 36.5 C 58 L 18 124/63 94 Room Air 08/07/23 10:23 57 L 08/07/23 07:25 36.6 C 58 L 18 163/68 H 94 Room Air 08/07/23 02:39 36.4 C L 60 16 132/72 93 Room Air Laboratory Results [facility] 08/07/23 09:47 Sodium 136 Potassium 3.9 Chloride 103 Carbon Dioxide 24 BUN 70 H Creatinine 1.91 H Glucose 241 H Calcium 9.0
--- NOTE | 2023-08-07 12:47 | Discharge Summary ---
Date of Service August 07, 2023 Admission HPI Per Admitting Provider Patient is 63-year-old female with PMH uncontrolled DM II, HTN, dyslipidemia, CAD, H/O PR s/p stents, hypothyroidism, RADHA, nocturnal hypoxia, pulmonary hypertension, chronic diastolic heart failure, depression, anxiety, CKD III-IV presented to ER with c/o weakness. History obtained from patient, daughter in law and outpatient chart review. Patient states today was feeling weak and fell onto buttocks. States her son was home at time and assisted in getting patient up. Son was concerned patient seemed to have trouble finding her words and EMS was called. Patient denies dizziness, CP, SOB, LOC, or hitting head. States last night she had some tingling to left side of face. Walks with walker at baseline. Daughter in law states in ER patient seems back to her baseline. Patient complaining of left sided headache today and she thinks she awoke with SELF. Denies any dizziness. States has chronic poor vision and denies any worsening vision changes. States has chronic neuropathy of bilateral feet and denies any increased paresthesias. She admits medication noncompliance and hasn't been taking her medications. Not been using insulin regularly as has trouble seeing needle to self inject. Reports last week with rhinorrhea, cough symptoms which have been improving. Patient reports intermittent nausea without vomiting but denies nausea today. Intermittent constipation also. She also reports intermittent right sided abdominal discomfort but denies any abdominal pain today. Denies history stroke. Patient and family admit patient has some underlying depression. Patient states she feels she doesn't have a purpose anymore since she can't work. Denies fever/chills, diarrhea, diaphoresis, syncope, neck pain, CP, SOB, orthopnea, palpitations, hemoptysis, otalgia, rhinorrhea, increased extremity edema, rashes, urinary symptoms. In ER patient found to be hypertensive with BP: 226/94, and hyperglycemic with glucose of 574. She was given Tylenol, two doses of hydralazine 10mg IV with repeat BP 166/69. Given total 15 units of insulin with repeat BSG 365. CT scan head without acute findings. [employer] respiratory panel +coronavirus. Patient with reported left sided headache that had slightly improved and without focal deficits. Admission Exam Per Admitting Provider General: no acute distress, obese Head: normocephalic, atraumatic Eyes: PERRL, EOM's intact, +poor vision and reports can see outlines/shadows of people and objects. not wearing corrective lenses currently, conjunctiva non- injected, anicteric ENT: normal inspection external ears, nose, mucous membranes moist Neck: supple, trachea midline Lungs: clear, no respiratory distress, no wheezing/rhonchi/rales CV: RRR, no murmur Abd: normal BS, soft, non-tender Ext: no cyanosis, no calf tenderness, BLE large bilaterally without noted pitting edema Neuro: A&O x 3, +slight right sided downturning of mouth (family reports is chronic), no other focal deficits noted, +flat affect Skin: warm, dry. Left foot: +ulcer heel with odor and approximately 2cm surrounding erythema, dried drainage noted on bandage but no active discharge noted Principal Diagnosis Acute cerebrovascular accident Hypertensive urgency Uncontrolled diabetes mellitus Hypokalemia Left foot ulcer Upper respiratory tract infection ASHLY on CKD stage III-IV Urinary tract infection Left apical opacity Discharge Data Allergies Allergy/AdvReac Type Severity Reaction Status Date / Time No Known Allergies Allergy Unverified 07/29/23 15:45 Consultations 07/29/23 14:51 ED Decision to Admit Stat 07/29/23 16:16 Consult Cardiology Routine 07/29/23 18:21 Consult Neurology Routine 07/31/23 14:13 Consult Podiatry Routine 08/02/23 07:57 Consult Nephrology Routine Procedures Performed Laboratory Results WBC 7.83 K/ul (4.8-10.8) 08/06/23 07:17 RBC 4.01 M/uL (4.20-5.40) L 08/06/23 07:17 Hgb 10.7 g/dl (12.0-16.0) L 08/06/23 07:17 Hct 33.3 % (37.0-47.0) L 08/06/23 07:17 MCV 83.0 fL (80.0-100.0) 08/06/23 07:17 MCH 26.7 pg (25.0-34.0) 08/06/23 07:17 MCHC 32.1 g/dL (32.0-36.0) 08/06/23 07:17 RDW Std Deviation 42.2 fL (36.4-46.3) 08/06/23 07:17 RDW Coeff of Sven 14.0 % (11.5-14.5) 08/06/23 07:17 Plt Count 317 K/uL (130-400) 08/06/23 07:17 MPV 9.8 fL (9.4-12.4) 08/06/23 07:17 Immature Gran % (Auto) 0.4 % 07/30/23 05:28 Neut % (Auto) 77.5 % 07/30/23 05:28 Lymph % (Auto) 13.9 % 07/30/23 05:28 Mercer % (Auto) 7.6 % 07/30/23 05:28 Eos % (Auto) 0.2 % 07/30/23 05:28 Baso % (Auto) 0.4 % 07/30/23 05:28 Neut # (Auto) 10.56 K/uL (1.40-6.50) H 07/30/23 05:28 Lymph # (Auto) 1.89 K/uL (1.20-3.40) 07/30/23 05:28 Mercer # (Auto) 1.03 K/uL (0.11-0.59) H 07/30/23 05:28 Eos # (Auto) 0.03 K/uL (0.00-0.50) 07/30/23 05:28 Baso # (Auto) 0.06 K/uL (0.00-0.20) 07/30/23 05:28 Immature Gran # (Auto) 0.05 K/uL (0.01-0.20) 07/30/23 05:28 ESR 57 mm/hr (0-30) H 08/03/23 20:52 VBG pH 7.36 (7.36-7.41) 08/02/23 05:16 VBG pCO2 42 mmHg (38-50) 07/29/23 17:44 VBG pO2 46 mmHg 07/29/23 17:44 VBG HCO3 26 mmol/L 07/29/23 17:44 VBG O2 Saturation 79.6 % 07/29/23 17:44 VBG Base Excess 1.0 mEq/L 07/29/23 17:44 Sodium 136 mmol/L (136-145) 08/07/23 09:47 Potassium 3.9 mmol/L (3.5-5.1) 08/07/23 09:47 Chloride 103 mmol/L (98-107) 08/07/23 09:47 Carbon Dioxide 24 mmol/L (21-32) 08/07/23 09:47 Anion Gap 9 (3-11) 08/07/23 09:47 BUN 70 mg/dl (6-23) H 08/07/23 09:47 Creatinine 1.91 mg/dl (0.6-1.2) H 08/07/23 09:47 Est Cr Clr Drug Dosing 33.9 ml/min 08/07/23 09:47 Est GFR ( Amer) 31.3 ml/min 08/07/23 09:47 Est GFR (Non-Af Amer) 27.0 ml/min 08/07/23 09:47 BUN/Creatinine Ratio 36.6 (10-20) H 08/07/23 09:47 Glucose 241 mg/dl (70-99(Fasting)) H 08/07/23 09:47 POC Glucose 211 mg/dl (70-99) H 08/07/23 11:09 Estimat Average Glucose 358 mg/dl 07/30/23 05:22 Hemoglobin A1c 14.1 % (4.5-5.6) H 07/30/23 05:22 Osmolality 319 mOsm/kg (280-300) H 07/29/23 11:30 Lactate 0.9 mmol/L (0.4-2.0) 08/03/23 20:52 Calcium 9.0 mg/dl (8.6-10.3) 08/07/23 09:47 Phosphorus 5.6 mg/dl (2.5-4.9) H 08/02/23 05:16 Magnesium 2.2 mg/dl (1.7-2.4) 08/02/23 05:16 Total Bilirubin 0.3 mg/dl (0.2-1.0) 07/30/23 05:22 AST 10 U/L (13-39) L 07/30/23 05:22 ALT 11 U/L (7-52) 07/30/23 05:22 Alkaline Phosphatase 76 U/L (34-104) 07/30/23 05:22 Total Creatine Kinase 63 U/L (26-192) 08/03/23 20:52 Troponin I High Sens 41.0 pg/ml (0-14) H D 08/01/23 09:42 Total Protein 5.7 gm/dl (6.0-8.3) L D 07/30/23 05:22 Albumin 2.6 gm/dl (3.4-5.0) L 07/30/23 05:22 Globulin 3.1 gm/dl (2.5-4.0) 07/30/23 05:22 Albumin/Globulin Ratio 0.8 (0.9-2) L 07/30/23 05:22 Triglycerides 211 mg/dl (0-150) H 07/30/23 05:22 Cholesterol 218 mg/dl (0-200) H 07/30/23 05:22 LDL Cholesterol, Calc 134 mg/dl 07/30/23 05:22 VLDL Cholesterol, Calc 42 mg/dl (0-30) H 07/30/23 05:22 HDL Cholesterol 42 mg/dl 07/30/23 05:22 Cholesterol/HDL Ratio 5.2 (0-5) H 07/30/23 05:22 Procalcitonin 0.05 ng/ml (0-0.5) 07/30/23 09:01 TSH 2.222 uIu/ml (0.300-4.500) 07/29/23 11:30 Urine Color Yellow 08/03/23 Unknown Urine Appearance Clear (Clear) 08/03/23 Unknown Urine pH 5.0 (4.5-7.5) 08/03/23 Unknown Ur Specific [place] 1.013 (1.000-1.030) 08/03/23 Unknown Urine Protein 3+ (Negative) H 08/03/23 Unknown Urine Glucose (UA) Negative (Negative) 08/03/23 Unknown Urine Ketones Negative (Negative) 08/03/23 Unknown Urine Blood Negative (Negative) 08/03/23 Unknown Urine Nitrite Negative (Negative) 08/03/23 Unknown Urine Bilirubin Negative (Negative) 08/03/23 Unknown Urine Urobilinogen Negative (Negative) 08/03/23 Unknown Ur Leukocyte Esterase Negative (Negative) 08/03/23 Unknown Urine WBC (Auto) 1-5 /hpf (0-5) 08/03/23 Unknown Urine RBC (Auto) 0-4 /hpf (0-4) 08/03/23 Unknown U Hyaline Cast (Auto) 1-5 /lpf (0-5) 08/03/23 Unknown U Epithel Cells (Auto) >30 /lpf (0-5) H 08/03/23 Unknown Urine Bacteria (Auto) Negative (Negative) 08/03/23 Unknown Ur Random Creatinine 23.5 mg/dl 08/06/23 Unknown U Random Total Protein 163.7 mg/dl (0-11.9) H 08/06/23 Unknown Protein/Creatinin Ratio 7.0 (0-0.2) H 08/06/23 Unknown Nasal Screen MRSA (PCR) Negative (Negative) 07/30/23 Unknown Complement C3 124 mg/dL (83-193) 08/03/23 20:52 Complement C4 32 mg/dL (15-57) 08/03/23 20:52 Tot Complement (CH50) >60 U/mL (31-60) H 08/03/23 20:52 Adenovirus (PCR) Not Detected (NotDetected) 07/29/23 12:00 B. pertussis DNA (PCR) Not Detected (NotDetected) 07/29/23 12:00 B.parapertussis DNA PCR Not Detected (NotDetected) 07/29/23 12:00 C. pneumoniae DNA (PCR) Not Detected (NotDetected) 07/29/23 12:00 Coronavirus OC43 (PCR) Not Detected (NotDetected) 07/29/23 12:00 Coronavirus HKU1 (PCR) Not Detected (NotDetected) 07/29/23 12:00 Coronavirus 229E (PCR) DETECTED (NotDetected) A 07/29/23 12:00 SARS-CoV-2 (PCR) Not Detected (NotDetected) 07/29/23 12:00 Coronavirus NL63 (PCR) Not Detected (NotDetected) 07/29/23 12:00 Human Metapneumovir PCR Not Detected (NotDetected) 07/29/23 12:00 Influenza Type A (PCR) Not Detected (NotDetected) 07/29/23 12:00 Influenza Type B (PCR) Not Detected (NotDetected) 07/29/23 12:00 M. pneumoniae (PCR) Not Detected (NotDetected) 07/29/23 12:00 Parainfluenza 1 (PCR) Not Detected (NotDetected) 07/29/23 12:00 Parainfluenza 2 (PCR) Not Detected (NotDetected) 07/29/23 12:00 Parainfluenza 3 (PCR) Not Detected (NotDetected) 07/29/23 12:00 Parainfluenza 4 (PCR) Not Detected (NotDetected) 07/29/23 12:00 RSV (PCR) Not Detected (NotDetected) 07/29/23 12:00 Entero/Rhino (PCR) Not Detected (NotDetected) 07/29/23 12:00 Impressions Chest X-Ray 07/29/23 10:59 XR chest 1V portable HISTORY: weakness COMPARISON: None. FINDINGS: There are low lung volumes. No pneumothorax. No pleural effusions. The cardiac silhouette is mildly enlarged. No evidence for pulmonary edema. Left basilar densities favor subsegmental atelectasis or scarring. Otherwise, no focal lung consolidations to suggest. No evidence for pulmonary edema. No acute fractures identified. IMPRESSION: Mild cardiomegaly. Otherwise, no acute process within the chest. ACT 112: Negative or not required by law. Electronically signed by: Giuliano Loera M.D. 07/29/2023 11:18 AM Foot X-Ray 07/29/23 16:36 XR foot LT min 3V routine CLINICAL HISTORY: foot wound left TECHNIQUE: 3 views of the left foot were obtained. Comparison: None available at the time of this dictation. FINDINGS: No fractures are present. Degenerative changes are seen. Vascular calcifications are noted. IMPRESSION: Degenerative changes without evidence of acute fracture. ACT 112: Negative or not required by law. Electronically signed by: Stephane Leyva M.D. 07/29/2023 4:56 PM Brain MRI 07/29/23 17:31 CR Exam(s): MRI HEAD Without Contrast EXAM: MR Head Without Intravenous Contrast CLINICAL HISTORY: Reason for exam: r/o stroke. TECHNIQUE: Magnetic resonance images of the head/brain without intravenous contrast in multiple planes. COMPARISON: CT head 07/29/23 FINDINGS: There is a 7 mm focus of diffusion restriction in the periventricular white matter of the right occipital lobe (series 5, image 14). There is a 10 mm focus of diffusion restriction within the left occipital lobe (series 5, image 12). No additional foci of diffusion restriction are present. There is no evidence of acute intracranial hemorrhage. There is no mass-effect or midline shift. Parenchymal volume appears normal for age. There is no hydrocephalus. There is no significant white matter disease burden. There is mild mucosal thickening in the right frontal sinus and bilateral ethmoids. A small retention cyst is present in the sphenoid sinus. There is a mild effusion at the left mastoid tip. IMPRESSION: Small acute infarcts in both occipital lobes. Consider embolic infarcts. Communications: Call Doctor Stroke Electronically signed by: Keren Solano M.D. 07/29/23 19:[address] 07/29/23 17:35 CT head/brain wo con CLINICAL HISTORY: r/o stroke Technique: Contiguous axial CT images of the head were acquired from the base of the skull to the vertex without intravenous contrast administration. Images were viewed in brain, subdural and bone windows. Automated dose lowering techniques and/or adjustment according to patient size were utilized for this exam. Comparison: Comparison is made to CT head 07/29/2023 Findings: The ventricles, basal cisterns, and cerebral sulci are normal. There is no acute intracranial hemorrhage or evidence of acute territorial infarction. Neither mass effect, shift of the midline structures, nor abnormal extra-axial fluid collections are shown. Imaged portions of the paranasal sinuses and mastoid air cells are clear. The orbits appear normal. There are no acute fractures of the calvaria or scalp swelling. Impression: No acute intracranial hemorrhage, no evidence of acute territorial infarction or other acute intracranial disease process. ACT 112: Negative or not required by law. Electronically signed by: Stephane Leyva M.D. 07/29/2023 6:08 PM Carotid Doppler Study 07/29/23 18:37 CAROTID ARTERY ULTRASOUND CLINICAL HISTORY: stroke symptoms COMPARISON STUDY: None. TECHNIQUE: Real-time, grayscale, and color Doppler sonography of the carotid and vertebral arteries was performed. Images were viewed in the transverse and longitudinal planes. FINDINGS: This exam is mildly compromised by suboptimal penetration. There is mild to moderate atherosclerotic plaque. Velocity measurements are listed below. COMMON CAROTID PEAK SYSTOLIC VELOCITY (CM/S): RIGHT 52 LEFT 97 ICA PEAK SYSTOLIC VELOCITY (CM/S): RIGHT 72 LEFT 115 Systolic ratios within the internal to common carotid arteries were normal. Antegrade flow is seen in the vertebral arteries. The external carotid arteries are patent. IMPRESSION: 1. Mild to moderate atherosclerotic plaque. No evidence for a hemodynamically significant stenosis. 2. Exam mildly compromised by suboptimal penetration. ACT 112: Negative or not required by law. Electronically signed by: Bruce Cai M.D. 07/30/2023 8:53 AM Head CTA 07/30/23 13:12 CT ANGIOGRAM OF THE BRAIN COMBO; CT ANGIOGRAM OF THE NECK CLINICAL HISTORY: Stroke COMPARISON STUDY: CT and MRI of the brain dated 07/29/2023. Carotid artery ultrasound dated 07/29/2023. TECHNIQUE: Unenhanced axial CT scan of the brain is performed. Subsequently, following the IV administration of 118 of Optiray 320, CT angiogram of the head and neck was performed from the aortic arch to the vertex. Images are reviewed in the axial, sagittal, and coronal planes. 3-D MIPS images are created and assessed. IV contrast was administered without complication. All measurements were calculated based on NASCET criteria. A dose lowering technique was utilized adhering to the principles of ALARA. CT DOSE: 1074.9 mGy.cm FINDINGS: Brain parenchyma: There is age-related involutional change noting mild subcortical and periventricular microangiopathic disease. There is no hemorrhage, mass effect, or evidence of acute territorial ischemia by CT criteria. There is no evidence of enhancing mass lesion on the angiogram phase images. The ventricles, sulci, and cisterns are prominent secondary to involutional change. Rebolledo-white matter differentiation is preserved. No extra- axial fluid collection is seen. Thoracic aorta: Visualized portions of the thoracic aorta are normal in caliber. The aortic arch demonstrates standard 3-vessel anatomy. Right carotid arterial system: The right common carotid artery is widely patent, as are the right internal and external carotid arteries. Calcified plaque is seen in the carotid bulb. Left carotid arterial system: The left common carotid artery is widely patent, as are the left internal and external carotid arteries. Calcified plaque is noted in the carotid bulb. Vertebral arteries: The vertebral arteries are widely patent bilaterally noting mild left-sided dominance. Subclavian arteries: Widely patent bilaterally. Intracranial vasculature: There is atherosclerotic calcification of the cavernous carotid and vertebral arteries. The internal carotid arteries are patent at the skull base, as are the anterior and middle cerebral arteries bilaterally. The vertebrobasilar system and posterior cerebral arteries are widely patent. The left vertebral artery is dominant. There is a left posterior communicating artery. There is origin of the right posterior cerebral artery. There is no aneurysm, high-grade stenosis, or focal vessel cut off seen throughout the intracranial circulation. Jugular veins: Patent bilaterally. Dural sinuses: Patent. Lung apices: There is a 12 mm airspace opacity at the left apex seen on image #72. The visualized upper lobe lung parenchyma is otherwise Clear. Soft tissues: The visualized pharyngeal soft tissues are normal in appearance noting angiographic phase technique. The oropharyngeal airway appears widely patent. The thyroid gland is mildly enlarged and heterogeneous. The salivary glands are normal in appearance. No cervical lymphadenopathy is seen. Skeletal structures: The calvarium appears intact. The cervical spine is maintained noting mild multilevel spondylosis. Orbits: The bony orbits are intact. Orbital contents are normal as visualized. Sinuses and mastoids: There is trace mucosal thickening within the maxillary antra and ethmoid sinuses. A subcentimeter retention cyst is noted in the left sphenoid sinus. Moderate mucosal thickening is seen in the right frontal sinus. The mastoid air cells are well pneumatized. IMPRESSION: 1. There is no hemorrhage, mass effect, or evidence of acute territorial ischemia by CT criteria. Tiny foci of acute ischemia seen by MRI are not apparent on CT. 2. Unremarkable CT angiogram of the brain. 3. Unremarkable CT angiogram of the neck. ACT 112: Negative or not required by law. Electronically signed by: Tomi Miller M.D. 07/30/2023 7:01 PM Neck CTA 07/30/23 13:12 CT ANGIOGRAM OF THE BRAIN COMBO; CT ANGIOGRAM OF THE NECK CLINICAL HISTORY: Stroke COMPARISON STUDY: CT and MRI of the brain dated 07/29/2023. Carotid artery ultrasound dated 07/29/2023. TECHNIQUE: Unenhanced axial CT scan of the brain is performed. Subsequently, following the IV administration of 118 of Optiray 320, CT angiogram of the head and neck was performed from the aortic arch to the vertex. Images are reviewed in the axial, sagittal, and coronal planes. 3-D MIPS images are created and assessed. IV contrast was administered without complication. All measurements were calculated based on NASCET criteria. A dose lowering technique was utilized adhering to the principles of ALARA. CT DOSE: 1074.9 mGy.cm FINDINGS: Brain parenchyma: There is age-related involutional change noting mild subcortical and periventricular microangiopathic disease. There is no hemorrhage, mass effect, or evidence of acute territorial ischemia by CT criteria. There is no evidence of enhancing mass lesion on the angiogram phase images. The ventricles, sulci, and cisterns are prominent secondary to involutional change. Rebolledo-white matter differentiation is preserved. No extra- axial fluid collection is seen. Thoracic aorta: Visualized portions of the thoracic aorta are normal in caliber. The aortic arch demonstrates standard 3-vessel anatomy. Right carotid arterial system: The right common carotid artery is widely patent, as are the right internal and external carotid arteries. Calcified plaque is seen in the carotid bulb. Left carotid arterial system: The left common carotid artery is widely patent, as are the left internal and external carotid arteries. Calcified plaque is noted in the carotid bulb. Vertebral arteries: The vertebral arteries are widely patent bilaterally noting mild left-sided dominance. Subclavian arteries: Widely patent bilaterally. Intracranial vasculature: There is atherosclerotic calcification of the cavernous carotid and vertebral arteries. The internal carotid arteries are patent at the skull base, as are the anterior and middle cerebral arteries bilaterally. The vertebrobasilar system and posterior cerebral arteries are widely patent. The left vertebral artery is dominant. There is a left posterior communicating artery. There is origin of the right posterior cerebral artery. There is no aneurysm, high-grade stenosis, or focal vessel cut off seen throughout the intracranial circulation. Jugular veins: Patent bilaterally. Dural sinuses: Patent. Lung apices: There is a 12 mm airspace opacity at the left apex seen on image #72. The visualized upper lobe lung parenchyma is otherwise Clear. Soft tissues: The visualized pharyngeal soft tissues are normal in appearance noting angiographic phase technique. The oropharyngeal airway appears widely patent. The thyroid gland is mildly enlarged and heterogeneous. The salivary glands are normal in appearance. No cervical lymphadenopathy is seen. Skeletal structures: The calvarium appears intact. The cervical spine is maintained noting mild multilevel spondylosis. Orbits: The bony orbits are intact. Orbital contents are normal as visualized. Sinuses and mastoids: There is trace mucosal thickening within the maxillary antra and ethmoid sinuses. A subcentimeter retention cyst is noted in the left sphenoid sinus. Moderate mucosal thickening is seen in the right frontal sinus. The mastoid air cells are well pneumatized. IMPRESSION: 1. There is no hemorrhage, mass effect, or evidence of acute territorial ischemia by CT criteria. Tiny foci of acute ischemia seen by MRI are not apparent on CT. 2. Unremarkable CT angiogram of the brain. 3. Unremarkable CT angiogram of the neck. ACT 112: Negative or not required by law. Electronically signed by: Tomi Miller M.D. 07/30/2023 7:01 PM Renal Ultrasound 08/03/23 14:49 US renal/blad retro comp CLINICAL HISTORY: worsening ASHLY, hx embolic stroke TECHNIQUE: Multiple sonographic real-time images of the kidneys and bladder were obtained. COMPARISON: None available at the time of this dictation. FINDINGS: The right kidney measures 11.6 cm in length, and the left kidney measures 12.6 cm in length. The right kidney is normal in size, contour, cortical thickness, and echogenicity. No hydronephrosis is identified. No renal lesion is identified. The left kidney is normal in size, contour, cortical thickness and echogenicity. No hydronephrosis is identified. No renal lesion is identified. The bladder is underdistended limiting visualization. Ureteric jets are not seen at the time of exam. IMPRESSION: No evidence of hydronephrosis. ACT 112: Negative or not required by law. Electronically signed by: Stephane Leyva M.D. 08/03/2023 5:55 PM Ordered Studies 07/29/23 11:10 CT head/brain wo con Stat 07/29/23 17:31 MR brain wo con Stat 07/29/23 17:35 CT Brain [CT head/brain wo con] Stat 07/29/23 18:37 Carotid duplex [US carotid doppler BI] Routine 07/30/23 13:12 CT angio neck with con Stat CTA head wo/w [CT angio head wo/w] Stat 08/03/23 14:49 US renal/blad retro comp Urgent Hospital Course (1) CVA (cerebral vascular accident): (2) Weakness: (3) Stroke-like symptoms: 63-year-old female with PMH uncontrolled DM II, HTN, dyslipidemia, CAD, H/O PR s/p stents, hypothyroidism, RADHA, nocturnal hypoxia, pulmonary hypertension, chronic diastolic heart failure, depression, anxiety, CKD III-IV presented to ER with c/o weakness and fall the morning of admission. Denied hitting head, dizziness, CP, SOB. Patient with reported left sided headache and without focal deficits upon initial exam. Had also reported left sided facial paresthesias the previous day In ER patient found to be hypertensive with BP: 226/94, and hyperglycemic with glucose of 574. She was given Tylenol, two doses of hydralazine 10mg IV with repeat BP 166/69. Given total 15 units of insulin with repeat BSG 365. Initial CT scan head without acute findings. Initial exam upon admission patient without focal deficits and normal speech. Weakness and Headache were initially thought possible to hypertensive encephalopathy, hyperglycemia DDX: TIA, CVA, atypical migraine, hypertensive encephalopathy On day of admission, ER nurse at 17:03 noted that patient having slurred speech and word finding difficulties. Repeat BP: 199/110. BSG high 300's. Some reported decreased sensation left side of face, +slight right sided mouth drooping (appears similar to initial presentation) +expressive aphasia with some slurred speech. Alert and oriented x 3. EOMs intact. No nystagmus, Hearing grossly intact, soft palate elevates symmetrically, shoulder shrug intact, tongue is midline, normal movement, no fasciculations, strength 5/5 bilateral upper extremities, chronically unable to lift legs, pedal pushes and pulls intact bilaterally. Stroke alert called--Repeat CT head No acute intracranial hemorrhage, no evidence of acute territorial infarction or other acute intracranial disease process. Acute CVA --MRI brain:Small acute infarcts in both occipital lobes. Consider embolic infarcts. --Carotid USD:Mild to moderate atherosclerotic plaque. No evidence for a hemodynamically significant stenosis. Exam mildly compromised by suboptimal penetration. --Head/Neck CTA:There is no hemorrhage, mass effect, or evidence of acute territorial ischemia by CT criteria. Tiny foci of acute ischemia seen by MRI are not apparent on CT.. Unremarkable CT angiogram of the brain. Unremarkable CT angiogram of the neck. --HbA1c is 14.1 --Lipid panel noted total cholesterol of 218, LDL 134, HDL 42, Trig 211 --TTE noted EF 60-65%, mod conc LVH, G 1 DD, mod dil LA, mild to mod MR, trace AR, no evidence of AST, trace TR, RVSP 40-50mmHg -- Rosuvastatin increased to 20 mg daily -- Continue aspirin 325 mg daily --Speech therapy, PT OT evaluated --No rhythm issues on telemetry Appreciate cardiology, neurology input Given significant fall risk, visual issues, no anticoagulation unless cleared arrhythmias confirmed Needs Holter monitor arranged as outpatient Plan to discharge to rehab facility today Needs follow-up with neurology on discharge (4) Hypertensive urgency: H/O Medication noncompliance In ER patient found to be hypertensive with BP: 226/94, and hyperglycemic with glucose of 574. She was given Tylenol, two doses of hydralazine 10mg IV with repeat BP 166/69 Antihypertensives were initially held to allow permissive hypertension Continue amlodipine, hydralazine, metoprolol Lisinopril held due to ASHLY Monitor BP BP stable (5) Hyperglycemia: (6) Diabetes mellitus, type II: Uncontrolled DM II H/O medication noncompliance (reported she has not been taking her insulin for a while due to problems seeing and poor hand/finger dexterity) A1c: 13.3 on 01/17/2023 HbA1c is 14.1 Provided DM education Considering visual problems, may benefit from daily long acting insulin on discharge--defer to PCP Adjusting insulin as appropriate Monitor BGs (7) Elevated troponin: (8) Non-ST elevation PR (NSTEMI): (9) CAD (coronary artery disease): Reported history of CAD, PR s/p stents ?in 2019 in [place], [place] Troponin 96.8--> 100-->> 87. EKG sinus rhythm without acute ST changes noted Possible demand ischemia TTE as above Continue aspirin, metoprolol succinate, rosuvastatin Appreciate cardiology input (10) Foot ulcer, left: Diabetic pressure ulcer of L heel, stage 3, POA Appreciate podiatry input S/p Bedside debridement on 08/01/23 by Cargo Supervisor Continue wound care Needs follow-up with wound clinic on discharge (11) Recent URI: Recent URI symptoms with reported improvement [employer] respiratory panel +coronavirus CXR: No acute infiltrate ? Chronic respiratory failure per patient's [id number]. She reports previously patient was prescribed 2 L oxygen to use continuously however patient previously noncompliant so oxygen returned Currently saturating well on room air (12) CKD (chronic kidney disease), stage III: ASHLY on CKD III-IV Likely due to Contrast induced nephropathy, Hypertensive emergency on admission --Renal USD:No evidence of hydronephrosis. Cr peaked at 4.09, trending down Cr 1.9 today Monitor volume status Avoid nephrotoxic agents as able Needs follow-up with nephrology on discharge (13) Chronic diastolic CHF (congestive heart failure): IV Lasix changed to torsemide 40 mg daily Hyperkalemia Received sodium zirconium Spironolactone, lisinopril on hold Continue Veltassa per nephrology Monitor (14) Pulmonary hypertension: On sildenafil (15) Anxiety and depression: Denies suicidal ideations Medication noncompliance Continue escitalopram (16) HLD (hyperlipidemia): Continue Rosuvastatin (17) Obesity, morbid, BMI 40.0-49.9: Lifestyle modifications (18) Hypothyroidism: Reported history hypothyroidism Not on medications TSH: 2.2 UTI--POA Urine culture grew Klebsiella Completed antibiotic course Left apical opacity -CT showed:There is a 12 mm left apical opacity. This is indeterminant and may be inflammatory. A follow-up chest CT in 2-3 months time is recommended to document resolution. -Patient and patient's son aware of the finding and need for follow-up as outpa tient Patient will need repeat imaging in 2 to 3 months DVT Px Heparin SQ Code Status DNR/DNI Disposition Total Time Total Time Spent Total Time Spent (In Minutes): 56 minutes Discharge Plan Discharge Items Patient Disposition: Transfer Inpatient Rehab Fac Reason For Visit: HYPERGLYCEMIA Discharge Diagnosis: Acute cerebrovascular accident Hypertensive urgency Uncontrolled diabetes mellitus Hypokalemia Left foot ulcer Upper respiratory tract infection ASHLY on CKD stage III-IV Urinary tract infection Left apical opacity Activity: Per Instructions section Exercise/Sports: Gradually increase as tolerated Non-emergency contact: Primary Care Provider, Healthcare [facility] and Neurologist Call non-emergency contact if: you have any medication questions, your symptoms worsen, your pain is concerning for you and you have a fever Follow-up/Referrals: PCP,NO [Primary Care Provider] - Diet: Carb Consistent or DM2 and Heart Healthy Fluids: 1500ml (6 cups) Diet Texture: Easy to Chew Addtl Attending Provider Instructions: Follow-up with your primary care physician in 1 week upon discharge from rehab Follow-up with your warehouse consultant Dr. Whitley in 2 weeks with repeat blood test--basic metabolic panel (on every Thursday and for 3 weeks as per your warehouse consultant) Follow-up with your neurologist in 3-4 weeks -- Monitor your blood glucose levels regularly as advised. Discuss with your physician for further adjustment of medications as needed. --You are incidentally noted to have left lung opacity on CT. Discussed with your physician for further recommendations --Continue wound care for left foot ulcer while at rehab facility. -- Obtain standing weight in a.m. Thursday and monitor your blood pressure in the long to discuss with your warehouse consultant on follow-up visit. -- Obtain Holter monitor as recommended by your neurologist to rule out arrhythmias. Seek immediate medical attention if your symptoms reoccur or worsen Please take all medications as instructed on discharge list below. Please call if you have any questions or problems. You can reach a [facility] hospitalist on duty at [facility] 24 hours a day by calling [phone] Risk Factors for Stroke: You can reduce your chances of stroke by working with your medical provider to adopt a healthy lifestyle. Some specific ways to lower your chance of stroke are: * If you are a smoker, now is the time to stop smoking cigarettes * If you are diabetic, improve the control of your blood sugars * Avoid excessive amounts of alcohol * Control high blood pressure * Lose weight if you are overweight * Be sure to lead an active lifestyle * Eat a healthy diet low in salt, cholesterol and fat You should know about other risk factors for stroke that you are unable to control. These include: * Age 55 years or older * Male gender * Certain racial groups: , or / * Family History of Stroke, Mini stroke or Heart Attack * Sickle Cell Disease Follow Up: It is important for you to keep your follow up appointments with your medical provider. Who to Call and When: Medical Emergencies: Call 911 immediately if you experience any of the following warning signs and symptoms of Stroke: * Sudden numbness or weakness of the face, arm or leg, especially on one side of the body * Sudden confusion, trouble speaking or understanding * Sudden trouble seeing in one or both eyes * Sudden trouble walking, dizziness, loss of balance or coordination * Sudden severe headache with no cause Do not delay calling 911 if you experience any warning signs or symptoms of a stroke. Delay in seeking medical attention may affect what treatments can be given to you. . Pending Studies at Discharge: No Stand-Alone Forms: [facility], Medications to Prevent Stroke Skilled Items Patient informed of condition?: Yes DNR: Yes Discharge Level of Care: Acute rehab Communicable Disease: No Discharge Prognosis: Stable Lines: None Urinary Catheter: No Medications and DC Order Prescriptions: New Veltassa 8.4 gram Powder In Packet 8.4 g PO DAILY@1200 Qty: 0 0RF torsemide 20 mg Tablet 40 mg PO QAM Qty: 0 0RF rosuvastatin [Crestor] 20 mg Tablet 20 mg PO QAM Qty: 0 0RF Continued metformin 500 mg Tablet 500 mg PO BID aspirin 325 mg Tablet 325 mg PO DAILY metoprolol succinate 100 mg Tablet Extended Release 24 Hr 100 mg PO QAM amlodipine 10 mg Tablet 10 mg PO DAILY hydralazine 100 mg Tablet 100 mg PO BID escitalopram oxalate 20 mg Tablet 20 mg PO DAILY sildenafil (pulm.hypertension) 20 mg Tablet 20 mg PO TID Trulicity See Rx Instructions .ROUTE .COMPLEX Rx Instructions: unsure of dose; weekly on sundays Levemir FlexPen 100 unit/mL (3 mL) Insulin Pen 45 unit SUBCUT BID Held spironolactone 25 mg Tablet 25 mg PO DAILY Hold Instructions: Until further recommendations by your warehouse consultant lisinopril 2.5 mg tablet 2.5 mg PO DAILY Hold Instructions: Until further recommendations by your warehouse consultant Discontinued torsemide 20 mg Tablet 20 mg PO DAILY rosuvastatin 10 mg Tablet 10 mg PO DAILY Discharge Orders: Discharge Order (Routine); Ordered 08/07/23 Ordered By: Yobani Fry Admission Data Admit Date/Time: 07/29/23 15:15 Attending Provider: Yobani Fry Admit Provider: Yobani Fry Primary Care Provider: PCP,NO Other Providers: Yobani Fry; Kieran Brown; Shane Carranza; [facility]; Prabhu León; Andrew [place].
== END 2023-08-07 18:11 | DRG 40 ==
LOC: ED 10:55 → EDINP 15:15 → SUATTDRO 15:15 → 2S 17:56

== ENCOUNTER 2023-09-24 18:15 | Inpatient (IN) ==
--- NOTE | 2023-09-24 18:21 | ED Triage Note ---
Date of Service September 24, 2023 Provider in Triage Author: Liz Price History of Present Illness This patient was briefly evaluated while in triage. An abbreviated physical exam was performed. This patient is a 63-year-old Female who presents to the ED for evaluation of shortness of breath. Pt. had cold-like symptoms started yesterday. States today, oxygen levels "plummeted." States O2 saturation was in the 60%. History from daughter. No history of lung disease/COPD. No chest pain. Does not wear O2 at baseline. Pt. 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 Physical Exam VITALS: Vitals are noted on the nurse's note and reviewed by myself. GENERAL: This is a 63 year old female, in no acute distress, nondiaphoretic, well-developed well-nourished. SKIN: No obvious rashes, edema, erythema HEAD: Normocephalic atraumatic. EYES: Conjunctivae without injection, sclerae without icterus. NECK: No JVD. LUNGS: No retractions or accessory muscle use. MUSCULOSKELETAL: Presents in a wheelchair NEURO: Patient was alert and oriented to person place and time. No focal neurological deficits. Initial orders for labs and / or imaging were placed and patient was placed in the waiting area until a bed is available. Please see further documentation for the full ED course.
--- NOTE | 2023-09-24 18:34 | Emergency Department Note ---
Impression & Plan Hypoxia ADMIT ED Provider Note HPI: History obtained from patient and daughter at bedside The patient is a 63-year-old female with history of CVA, chronic kidney disease, chronic diastolic CHF, anxiety and depression, pulmonary hypertension, CAD, type II presents the emergency department with a chief complaint of shortness of breath. Patient was noted to be saturating at 76% on room air in triage and was emergently brought back to room for assessment. On my evaluation the patient is satting at 93% on nonrebreather mask. Patient states that her symptoms have been worsening over the past day, yesterday her symptoms started with a cough. Is any chest pain. Patient states she does not wear supplemental oxygen at home. Daughter states that when she got home from work today she noticed the patient at home and she seemed to be working hard to breathe so she brought her in by private vehicle to be assessed. Patient is otherwise with stable blood pressure on arrival 128/78, heart rate of 61, patient is afebrile on arrival. ROS: - Per HPI Differential Diagnosis: Acute CHF exacerbation, COPD exacerbation, pneumonia, pulmonary embolism, pulmonary edema, amongst other potential pathologies. *Outpatient medications and allergy history reviewed. PE: General: Alert, morbidly obese, mild distress secondary to increased work of breathing HEENT: Normocephalic, trachea midline Eyes: Extraocular eye movement is intact, no scleral erythema Pulmonary: Diminished air movement bilaterally without wheezing or crackles Cardio: Regular rate and rhythm GI: Abdomen is soft to palpation : No suprapubic tenderness MSK: No evidence of trauma or malformation of the extremities, no edema Skin: No evidence of rash Neuro: Alert, no focal deficits Psychiatric: Cooperative INDEPENDENT INTERPRETATIONS: telemetry monitor: (As interpreted by myself): - An order was placed for continuous cardiac monitoring - Patient was noted to be in sinus rhythm with a rate of 65 EKG: (As interpreted by myself): Rate: 59 Rhythm: Sinus bradycardia Intervals: Within normal limits ST changes: No ST elevation Time: 1846 Chest x-ray: (As interpreted by myself): Left lower lobe infiltrate Interventions provided in ED: -BiPAP, IV ceftriaxone, IV azithromycin Medical Decision Making: IV was established and lab work obtained, patient was placed on cardiac monitor technician. Patient was placed on BiPAP shortly after my assessment with good improvement in her work of breathing. Oxygen saturations were stable in the high 90s following BiPAP placement. Lab work shows a leukocytosis of 11.42, hemoglobin is stable at 11.5. Platelet count is normal. CMP does not show any critical findings. Venous blood gas shows normal pH. No hypercarbia. BNP is elevated at 196. Procalcitonin is low. Given infiltrate that is noted on chest x-ray patient was treated with IV antibiotics. Will send blood cultures. Patient is stable on BiPAP. Possible also element of CHF but is improved on BiPAP. I discussed the patient presentation with the on-call hospitalist, Dr. Mccall, and the patient was admitted in stable condition for further care. Consultants/Discussions held with other healthcare providers: -Hospitalist, Dr. Mccall * CRITICAL CARE TIME: ( 34 ) minutes -Stabilization of patient with hypoxia with oxygen saturations at 76% on room air requiring noninvasive positive pressure ventilation for correction/stabilization, time spent at the bedside, interpretation of diagnostic studies, discussion with other healthcare providers and arrangement of admission Diagnosis: 1. Hypoxia, acute 2. Left lower lobe pneumonia, acute 3. Leukocytosis, acute 4. Elevated BNP, acute Disposition: Admission Willam Lyon DO Emergency Medicine Past Med/Surg History Medical History CVA (cerebral vascular accident) Obesity, morbid, BMI 40.0-49.9 CKD (chronic kidney disease), stage III Chronic diastolic CHF (congestive heart failure) Anxiety and depression Pulmonary hypertension Hypothyroidism CAD (coronary artery disease) Diabetes mellitus, type II HLD (hyperlipidemia) Hypertension Surgical History History of cardiac cath s/p stents Social History Smoking Status: Never smoker Hx Alcohol Use: No Hx Substance Use: No Preferred Language: Czech Communication Ability: Effective Girls Swimming Coach Required: No Beliefs That Will Affect Care: None Current Living Situation: Family Current Living Situation Comment: lives with son Feels Safe at Home: Yes Gender Identity: Female Assistive Devices: Walker Allergies Allergies Allergy/AdvReac Type Severity Reaction Status Date / Time No Known Allergies Allergy Verified 09/24/23 20:25 Home Meds Home Medications Medication Instructions Recorded Confirmed amlodipine 10 mg tablet 10 mg PO DAILY 07/29/23 09/24/23 escitalopram oxalate 20 mg tablet 20 mg PO DAILY 07/29/23 09/24/23 hydralazine 100 mg tablet 100 mg PO TID 07/29/23 09/24/23 lisinopril 2.5 mg tablet 10 mg PO DAILY 07/29/23 09/24/23 metformin 500 mg tablet 500 mg PO BID 07/29/23 09/24/23 metoprolol succinate 100 mg 100 mg PO QAM 07/29/23 09/24/23 tablet,extended release 24 hr sildenafil (pulm.hypertension) 20 20 mg PO TID 07/29/23 09/24/23 mg tablet spironolactone 25 mg tablet 25 mg PO DAILY 07/29/23 09/24/23 empagliflozin 25 mg tablet 25 mg PO QAM 09/24/23 09/24/23 (Jardiance) insulin glargine 100 unit/mL (3 25 unit subcut QAM 09/24/23 09/24/23 mL) subcutaneous pen (Lantus Solostar U-100 Insulin) sodium zirconium cyclosilicate 10 10 g PO QAM 09/24/23 09/24/23 gram oral powder packet (Lokelma) torsemide 20 mg tablet 20 mg PO BID 09/24/23 09/24/23 Previous Rx's Medication Instructions Recorded rosuvastatin 20 mg tablet (Crestor) 20 mg PO QAM #0 tabs 08/07/23 Results & Data (ED) Vital Signs Vital Signs - 24 hr 09/24/23 18:16 09/24/23 18:33 09/24/23 18:40 Temperature 36.4 C L Temperature Source Temporal Artery Scan Pulse Rate 61 59 L 59 L Pulse Rate from SpO2 Sensor 59 L 59 L Pulse Strength Normal Respiratory Rate 19 21 18 Respiratory Effort / Characteristics Non-Labored Spontaneous Respiratory Depth Normal Respiratory Pattern Blood Pressure 128/78 Blood Pressure Mean 94 Pulse Oximetry 74 L 95 94 Oxygen Delivery Method Room Air BiPAP BiPAP Oxygen Flow Rate Fraction of Inspired Oxygen 50 50 Sepsis Recent Fever Within 48 Hours No Sepsis New/Unexplained Change in Mental Status No Sepsis Action Taken by Nursing No Action Required 09/24/23 18:41 09/24/23 18:43 09/24/23 18:48 Temperature Temperature Source Pulse Rate 59 L 60 Pulse Rate from SpO2 Sensor Pulse Strength Respiratory Rate 18 Respiratory Effort / Characteristics Non-Labored Spontaneous Spontaneous Accessory Muscle Use Short of Breath Respiratory Depth Normal Shallow Respiratory Pattern Regular Blood Pressure Blood Pressure Mean Pulse Oximetry 95 Oxygen Delivery Method Oxygen Flow Rate Fraction of Inspired Oxygen 50 Sepsis Recent Fever Within 48 Hours Sepsis New/Unexplained Change in Mental Status Sepsis Action Taken by Nursing 09/24/23 18:48 09/24/23 18:49 09/24/23 19:00 Temperature Temperature Source Pulse Rate 59 L 60 Pulse Rate from SpO2 Sensor 59 L Pulse Strength Respiratory Rate 16 21 Respiratory Effort / Characteristics Respiratory Depth Respiratory Pattern Blood Pressure 149/74 H 162/73 H Blood Pressure Mean 99 102 Pulse Oximetry 95 94 95 Oxygen Delivery Method BiPAP BiPAP BiPAP Oxygen Flow Rate Fraction of Inspired Oxygen 50 50 50 Sepsis Recent Fever Within 48 Hours Sepsis New/Unexplained Change in Mental Status Sepsis Action Taken by Nursing 09/24/23 19:15 09/24/23 19:30 09/24/23 19:42 Temperature Temperature Source Pulse Rate 59 L 58 L 66 Pulse Rate from SpO2 Sensor 59 L 58 L 59 L Pulse Strength Respiratory Rate 15 16 18 Respiratory Effort / Characteristics Respiratory Depth Respiratory Pattern Blood Pressure 158/75 H 169/87 H Blood Pressure Mean 102 114 Pulse Oximetry 95 97 95 Oxygen Delivery Method BiPAP BiPAP Oxygen Flow Rate 50 Fraction of Inspired Oxygen 50 Sepsis Recent Fever Within 48 Hours Sepsis New/Unexplained Change in Mental Status Sepsis Action Taken by Nursing 09/24/23 19:46 09/24/23 20:00 09/24/23 20:15 Temperature Temperature Source Pulse Rate 60 58 L 59 L Pulse Rate from SpO2 Sensor 59 L 58 L 59 L Pulse Strength Respiratory Rate 19 13 15 Respiratory Effort / Characteristics Respiratory Depth Respiratory Pattern Blood Pressure 161/77 H 160/73 H 157/74 H Blood Pressure Mean 105 102 101 Pulse Oximetry 94 94 95 Oxygen Delivery Method BiPAP BiPAP BiPAP Oxygen Flow Rate Fraction of Inspired Oxygen 50 50 50 Sepsis Recent Fever Within 48 Hours Sepsis New/Unexplained Change in Mental Status Sepsis Action Taken by Nursing 09/24/23 20:20 09/24/23 20:30 09/24/23 20:46 Temperature Temperature Source Pulse Rate 60 59 L 59 L Pulse Rate from SpO2 Sensor 59 L 59 L Pulse Strength Respiratory Rate 17 19 20 Respiratory Effort / Characteristics Non-Labored Spontaneous Respiratory Depth Respiratory Pattern Blood Pressure 154/76 H 155/95 H Blood Pressure Mean 102 115 Pulse Oximetry 94 93 94 Oxygen Delivery Method BiPAP BiPAP Oxygen Flow Rate Fraction of Inspired Oxygen 40 50 50 Sepsis Recent Fever Within 48 Hours Sepsis New/Unexplained Change in Mental Status Sepsis Action Taken by Nursing 09/24/23 21:00 09/24/23 21:30 09/24/23 22:07 Temperature Temperature Source Pulse Rate 59 L 59 L 59 L Pulse Rate from SpO2 Sensor 59 L 59 L 59 L Pulse Strength Respiratory Rate 20 14 19 Respiratory Effort / Characteristics Respiratory Depth Respiratory Pattern Blood Pressure 162/75 H 148/70 H Blood Pressure Mean 104 96 Pulse Oximetry 94 95 93 Oxygen Delivery Method BiPAP BiPAP Oxygen Flow Rate Fraction of Inspired Oxygen 50 50 Sepsis Recent Fever Within 48 Hours Sepsis New/Unexplained Change in Mental Status Sepsis Action Taken by Nursing 09/24/23 22:34 09/24/23 23:00 09/24/23 23:15 Temperature Temperature Source Pulse Rate 60 61 62 Pulse Rate from SpO2 Sensor Pulse Strength Respiratory Rate 19 18 Respiratory Effort / Characteristics Non-Labored Spontaneous Respiratory Depth Respiratory Pattern Blood Pressure Blood Pressure Mean Pulse Oximetry 94 94 Oxygen Delivery Method BiPAP Oxygen Flow Rate Fraction of Inspired Oxygen 40 Sepsis Recent Fever Within 48 Hours Sepsis New/Unexplained Change in Mental Status Sepsis Action Taken by Nursing Laboratory Data 09/24/23 18:40 09/24/23 18:40 Lab Results 09/24/23 09/24/23 Range/Units 18:40 18:50 WBC 11.42 H (4.8-10.8) K/ul RBC 4.27 (4.20-5.40) M/uL Hgb 11.5 L (12.0-16.0) g/dl Hct 35.9 L (37.0-47.0) % MCV 84.1 (80.0-100.0) fL MCH 26.9 (25.0-34.0) pg MCHC 32.0 (32.0-36.0) g/dL RDW Std Deviation 42.1 (36.4-46.3) fL RDW Coeff of Sven 13.8 (11.5-14.5) % Plt Count 305 (130-400) K/uL MPV 9.2 L (9.4-12.4) fL Immature Gran % (Auto) 0.8 % Neut % (Auto) 76.3 % Lymph % (Auto) 15.0 % [place] % (Auto) 6.0 % Eos % (Auto) 1.0 % Baso % (Auto) 0.9 % Neut # (Auto) 8.72 H (1.40-6.50) K/uL Lymph # (Auto) 1.71 (1.20-3.40) K/uL [place] # (Auto) 0.69 H (0.11-0.59) K/uL Eos # (Auto) 0.11 (0.00-0.50) K/uL Baso # (Auto) 0.10 (0.00-0.20) K/uL Immature Gran # (Auto) 0.09 (0.01-0.20) K/uL Absolute Nucleated RBC 0.02 (0.00-0.12) K/uL Nucleated RBC % (auto) 0.2 % PT 11.3 (9.0-12.0) Seconds INR 1.0 (0.9-1.1) APTT 26 (21-31) Seconds PTT Ratio 0.9 VBG pH 7.37 (7.36-7.41) VBG pCO2 45 (38-50) mmHg VBG pO2 40 mmHg VBG HCO3 26 mmol/L VBG O2 Saturation 63.5 % VBG Base Excess 0.3 mEq/L Sodium 136 (136-145) mmol/L Potassium 4.2 (3.5-5.1) mmol/L Chloride 102 (98-107) mmol/L Carbon Dioxide 25 (21-32) mmol/L Anion Gap 9 (3-11) BUN 73 H (6-23) mg/dl Creatinine 1.71 H (0.6-1.2) mg/dl Est Cr Clr Drug Dosing Not Reportable Est GFR ( Amer) 35.8 ml/min Est GFR (Non-Af Amer) 30.9 ml/min BUN/Creatinine Ratio 42.7 H (10-20) Glucose 179 H (70-99(Fasting)) mg/dl Calcium 9.8 (8.6-10.3) mg/dl Magnesium 2.0 (1.7-2.4) mg/dl Total Bilirubin 0.5 (0.2-1.0) mg/dl AST 10 L (13-39) U/L ALT 12 (7-52) U/L Alkaline Phosphatase 111 H (34-104) U/L Troponin I High Sens 12.9 (0-14) pg/ml B-Natriuretic Peptide 196 H (0-100) pg/ml Total Protein 7.6 (6.0-8.3) gm/dl Albumin 3.5 (3.4-5.0) gm/dl Globulin 4.1 H (2.5-4.0) gm/dl Albumin/Globulin Ratio 0.9 (0.9-2) Procalcitonin 0.06 (0-0.5) ng/ml Urine Color Cancelled Urine Appearance Cancelled Urine pH Cancelled Ur Specific [place] Cancelled Urine Protein Cancelled Urine Glucose (UA) Cancelled Urine Ketones Cancelled Urine Blood Cancelled Urine Nitrite Cancelled Urine Bilirubin Cancelled Urine Urobilinogen Cancelled Ur Leukocyte Esterase Cancelled Urine WBC (Auto) Cancelled Urine RBC (Auto) Cancelled U Hyaline Cast (Auto) Cancelled U Epithel Cells (Auto) Cancelled Urine Bacteria (Auto) Cancelled Ur Renal Epithelial Cell Cancelled [place] Biurate Crystals Cancelled Calcium Oxalate Crystal Cancelled Leucine Crystals Cancelled Cystine Crystals Cancelled Uric Acid Crystals Cancelled Triple Phos Crystals Cancelled Sulfonamide Crystals Cancelled Cholesterol Crystals Cancelled [place] Crystals Cancelled Tyrosine Crystals Cancelled Hippuric Acid Crystals Cancelled Unidentified Crystals Cancelled Amorphous Sediment Cancelled Epithelial Casts Cancelled Hyaline Casts Cancelled Granular Casts Cancelled Waxy Casts Cancelled RBC Casts Cancelled WBC Casts Cancelled Other Casts Cancelled Urine Mucus Cancelled Urine Other Cancelled Urine Trichomonas Cancelled Urine Yeast Cancelled Urine Sperm Cancelled Ur Oval Fat Bodies Cancelled Adenovirus (PCR) Not Detected (NotDetected) B. pertussis DNA (PCR) Not Detected (NotDetected) B.parapertussis DNA PCR Not Detected (NotDetected) C. pneumoniae DNA (PCR) Not Detected (NotDetected) Coronavirus OC43 (PCR) Not Detected (NotDetected) Coronavirus HKU1 (PCR) Not Detected (NotDetected) Coronavirus 229E (PCR) Not Detected (NotDetected) SARS-CoV-2 (PCR) Not Detected (NotDetected) Coronavirus NL63 (PCR) Not Detected (NotDetected) Human Metapneumovir PCR Not Detected (NotDetected) Influenza Type A (PCR) Not Detected (NotDetected) Influenza Type B (PCR) Not Detected (NotDetected) M. pneumoniae (PCR) Not Detected (NotDetected) Parainfluenza 1 (PCR) Not Detected (NotDetected) Parainfluenza 2 (PCR) Not Detected (NotDetected) Parainfluenza 3 (PCR) Not Detected (NotDetected) Parainfluenza 4 (PCR) Not Detected (NotDetected) RSV (PCR) Not Detected (NotDetected) Entero/Rhino (PCR) Not Detected (NotDetected) Administered Medications Discontinued Medications Ceftriaxone Sodium 1,000 mg/ (Dextrose) 50 mls @ 100 mls/hr IV NOW STA; Protocol Stop: 09/24/23 20:24 Last Infusion: 09/24/23 22:47 Dose: Infused Documented By: Admin: 09/24/23 22:05 Dose: 100 mls/hr Documented By: CESAR Azithromycin 500 mg/ Dextrose 255 mls @ 127.5 mls/hr IV NOW STA Stop: 09/24/23 21:54 Last Admin: 09/24/23 22:47 Dose: 127.5 mls/hr Documented By: LAUREL Discharge Plan Visit Data Chief Complaint: Shortness of Breath/Dyspnea Stated Complaint: LOW O2, SOB ED Provider: Willam Lyon Discharge Problem: Hypoxia Forms Stand Alone Forms: My [facility] Prescriptions Prescriptions: No Action metformin 500 mg Tablet 500 mg PO BID metoprolol succinate 100 mg Tablet Extended Release 24 Hr 100 mg PO QAM spironolactone 25 mg Tablet 25 mg PO DAILY Hold Instructions: Until further recommendations by your parimutuel ticket checker amlodipine 10 mg Tablet 10 mg PO DAILY hydralazine 100 mg Tablet 100 mg PO TID lisinopril 2.5 mg tablet 10 mg PO DAILY Hold Instructions: Until further recommendations by your parimutuel ticket checker Rx Instructions: 4 TABLETS-PER [facility], PER EXT MED HX--2.5 MG DAILY escitalopram oxalate 20 mg Tablet 20 mg PO DAILY sildenafil (pulm.hypertension) 20 mg Tablet 20 mg PO TID rosuvastatin [Crestor] 20 mg Tablet 20 mg PO QAM Qty: 0 0RF insulin glargine [Lantus Solostar U-100 Insulin] 100 unit/mL (3 mL) insulin pen 25 unit SUBCUT QAM Jardiance 25 mg Tablet 25 mg PO QAM Lokelma 10 gram powder in packet 10 g PO QAM torsemide 20 mg tablet 20 mg PO BID Referrals Referrals: Daniel Auguste MD [ED Physician] -
[2023-09-24 18:57] LABS: Base Excess VBG 0.3 mEq/L; HCO3 VBG 26 mmol/L; Oxygen Saturation VBG 63.5 %; PCO2 VBG 45 mmHg (38-50); PO2 VBG 40 mmHg; pH VBG 7.37 (7.36-7.41)
[2023-09-24 19:18] LABS: Basophils % (auto) 0.9 %; Eosinophils # (auto) 0.11 K/uL (0.00-0.50); Hematocrit (blood only) 35.9 % (37.0-47.0); Hemoglobin 11.5 g/dl (12.0-16.0); Immature Granulocytes # (auto) 0.09 K/uL (0.01-0.20); Immature Granulocytes % (auto) 0.8 %; Lymphocytes # (auto) 1.71 K/uL (1.20-3.40); Mean Corpuscular Hemoglobin 26.9 pg (25.0-34.0); Mean Corpuscular Volume 84.1 fL (80.0-100.0); Mean Platelet Volume 9.2 fL (9.4-12.4); Monocytes # (auto) 0.69 K/uL (0.11-0.59); Neutrophils # (auto) 8.72 K/uL (1.40-6.50); Neutrophils % (auto) 76.3 %; Nucleated RBC # (auto) 0.02 K/uL (0.00-0.12); Nucleated RBC % (auto) 0.2 %; Platelet Count 305 K/uL (130-400); RDW Coefficient of Variation 13.8 % (11.5-14.5); RDW Standard Deviation 42.1 fL (36.4-46.3); Red Blood Count 4.27 M/uL (4.20-5.40); White Blood Count 11.42 K/ul (4.8-10.8)
[2023-09-24 19:34] LABS: Alanine Aminotransferase 12 U/L (7-52); Albumin Globulin Ratio 0.9 (0.9-2); Albumin Level 3.5 gm/dl (3.4-5.0); Alkaline Phosphatase 111 U/L (34-104); Anion Gap 9 (3-11); Aspartate Aminotransferase 10 U/L (13-39); BUN Creatinine Ratio 42.7 (10-20); Bilirubin,Total 0.5 mg/dl (0.2-1.0); Blood Urea Nitrogen 73 mg/dl (6-23); Calcium 9.8 mg/dl (8.6-10.3); Carbon Dioxide 25 mmol/L (21-32); Chloride 102 mmol/L (98-107); Est GFR (African American) 35.8 ml/min; Est GFR (Non-African American) 30.9 ml/min; Globulin 4.1 gm/dl (2.5-4.0); Glucose 179 mg/dl (70-99(Fasting)); Potassium 4.2 mmol/L (3.5-5.1); Sodium 136 mmol/L (136-145); Total Protein 7.6 gm/dl (6.0-8.3)
[2023-09-24 19:41] LABS: Troponin I High Sensitivity 12.9 pg/ml (0-14)
[2023-09-24 20:00] LABS: Partial Thromboplastin Ratio 0.9; Partial Thromboplastin Time 26 Seconds (21-31); Prothrombin Time 11.3 Seconds (9.0-12.0)
[2023-09-24 20:01] LABS: Adenovirus PCR Not Detected (NotDetected); Bordetella parapertussis PCR Not Detected (NotDetected); Bordetella pertussis PCR Not Detected (NotDetected); Chlamydia pneumoniae PCR Not Detected (NotDetected); Coronavirus 229E PCR Not Detected (NotDetected); Coronavirus CoV-2 (COVID19)PCR Not Detected (NotDetected); Coronavirus HKU1 PCR Not Detected (NotDetected); Coronavirus NL63 PCR Not Detected (NotDetected); Coronavirus OC43PCR Not Detected (NotDetected); Human Metapneumovirus PCR Not Detected (NotDetected); Influenza A PCR Not Detected (NotDetected); Influenza B PCR Not Detected (NotDetected); Mycoplasma pneumoniae PCR Not Detected (NotDetected); Parainfluenza Virus 1 PCR Not Detected (NotDetected); Parainfluenza Virus 2 PCR Not Detected (NotDetected); Parainfluenza Virus 3 PCR Not Detected (NotDetected); Parainfluenza Virus 4 PCR Not Detected (NotDetected); Respiratory Syncytial VirusPCR Not Detected (NotDetected); Rhinovirus/Enterovirus PCR Not Detected (NotDetected)
[2023-09-24] MEDS: cefTRIAXone SODIUM 1,000 MG in DEXTROSE 5 % MINI-B 50 ML IV STA (20:59)
[2023-09-24] MEDS: AZITHROMYCIN 500 MG in DEXTROSE 5% 250 ML IV STA (22:47)
--- NOTE | 2023-09-25 00:16 | History & Physical Report ---
Date of Service September 24, 2023 Assessment & Plan (1) Acute hypoxemic respiratory failure: Plan: 61-year-old female with past medically significant for type 2 diabetes, history of diabetic ulcer of left heel, obstructive sleep apnea, nocturnal hypoxemia, pulmonary hypertension, chronic diastolic CHF, history of CAD s/p stent, hypertension, history of CVA, obesity, CKD stage III/IV, history of hyperkalemia, history of hidradenitis suppurativa, history of depression, history of lymphedema, general anxiety disorder, hypothyroidism, history of noncompliance, history of visual disturbance from bilateral macular degeneration who lives at home with her son and ghhrivnf-lj-ccs was brought in because of respiratory distress and was found to be have right lower lobe pneumonia. Patient states that since Thursday she is feeling cold symptoms. She is having cough bringing up whitish phlegm. Poor appetite since yesterday. Today she started feeling short of breath. When [id number]-[id number] came home she was found to be very short of breath. Sdzpsrwl-kw-jbz checked her pulse ox and it was low and brought to the hospital. She was saturating only 76% on room air and she was placed on BiPAP. Currently on BiPAP she saturating okay. She was able to give her history. Denies any headache. Some runny nose. No sore throat. Denies any chest pain. No nausea. No difficulty swallowing. No abdominal pain. Lately having some diarrhea because she restarted metformin. Micturating okay. Currently hemodynamics are okay. Denies any fevers. Acute hypoxemic respiratory failure Mostly secondary to right lower lobe pneumonia Currently requiring BiPAP Received Rocephin and azithromycin Will continue with the Zosyn and Doxy Close monitoring telemetry Pulmonary consult for further recommendations History of diabetes Hold Jardiance and metformin Lantus and sliding scale Will monitor History of hyperkalemia Last admission spironolactone and lisinopril was held and was started on Lokelma daily Supposed to follow-up with nephrology Will consult nephrology while in the hospital Restarting of spironolactone and lisinopril as per nephrology Chronic diastolic CHF lymphedema Continue home torsemide Pulmonary hypertension On sildenafil History of CAD s/p stent On metoprolol succinate, Crestor and aspirin History of CVA Last admission On statin and aspirin Supposed to get Holter Hyperlipidemia On statin History of obstructive sleep apnea Hypertension On amlodipine, hydralazine, metoprolol succinate, torsemide Will monitor Depression and generalized anxiety disorder On Lexapro CKD stage III/IV Presented creatinine 1.7 Seems around baseline Will follow labs History of hypothyroidism Not on meds Will check TSH Left apical opacity Supposed to get follow-up CT chest Will get CT chest within the hospital DVT prophylaxis Heparin subcu CODE STATUS Patient was DNR/DNI last admission Patient states she is okay to be full code if there is really chance of recovery and she wants her son to make decision. History of Present Illness Chief Complaint: Shortness of breath Primary Care Provider: Bridgette Celis MD 61-year-old female with past medical history significant for type 2 diabetes, history of diabetic ulcer of left heel, obstructive sleep apnea, nocturnal hypoxemia, pulmonary hypertension, chronic diastolic CHF, history of CAD s/p stent, hypertension, history of CVA, obesity, CKD stage III/IV, history of hyperkalemia, history of hidradenitis suppurativa, history of depression, history of lymphedema, general anxiety disorder, hypothyroidism, history of noncompliance, history of visual disturbance from bilateral macular degeneration who lives at home with her son and hlyvmcgj-tz-hay was brought in because of respiratory distress and was found to be have right lower lobe pneumonia. Patient states that since Thursday she is feeling cold symptoms. She is having cough bringing up whitish phlegm. Poor appetite since yesterday. Today she started feeling short of breath. When aketarno-zj-zog came home she was found to be very short of breath. Vgzlvsse-ux-sox checked her pulse ox and it was low and brought to the hospital. She was saturating only 76% on room air and she was placed on BiPAP. Currently on BiPAP she saturating okay. She was able to give her history. Denies any headache. Some runny nose. No sore throat. Denies any chest pain. No nausea. No difficulty swallowing. No abdominal pain. Lately having some diarrhea because she restarted metformin. Micturating okay. Currently hemodynamics are okay. Denies any fevers. Past medical history. As mentioned above Past surgical history. For home with surgery. Tongue biopsy. Social history. Currently living with son and svyirgep-wv-hub. No smoking. No alcohol. No drug use. Family history. Mother had thyroid cancer. Stroke. Son had coarctation of the aorta. Father had heart attack. Allergies Allergy/AdvReac Type Severity Reaction Status Date / Time No Known Allergies Allergy Verified 09/24/23 20:25 Home Medications Medication Instructions Recorded Confirmed Type amlodipine 10 mg tablet 10 mg PO DAILY 07/29/23 09/24/23 History escitalopram oxalate 20 mg tablet 20 mg PO DAILY 07/29/23 09/24/23 History hydralazine 100 mg tablet 100 mg PO TID 07/29/23 09/24/23 History lisinopril 2.5 mg tablet 10 mg PO DAILY 07/29/23 09/24/23 History metformin 500 mg tablet 500 mg PO BID 07/29/23 09/24/23 History metoprolol succinate 100 mg 100 mg PO QAM 07/29/23 09/24/23 History tablet,extended release 24 hr sildenafil (pulm.hypertension) 20 20 mg PO TID 07/29/23 09/24/23 History mg tablet spironolactone 25 mg tablet 25 mg PO DAILY 07/29/23 09/24/23 History rosuvastatin 20 mg tablet (Crestor) 20 mg PO QAM #0 tabs 08/07/23 09/24/23 Rx empagliflozin 25 mg tablet 25 mg PO QAM 09/24/23 09/24/23 History (Jardiance) insulin glargine 100 unit/mL (3 25 unit subcut QAM 09/24/23 09/24/23 History mL) subcutaneous pen (Lantus Solostar U-100 Insulin) sodium zirconium cyclosilicate 10 10 g PO QAM 09/24/23 09/24/23 History gram oral powder packet (Lokelma) torsemide 20 mg tablet 20 mg PO BID 09/24/23 09/24/23 History aspirin 325 mg tablet 325 mg PO DAILY 09/25/23 09/25/23 History Past Med/Surg History Medical History CVA (cerebral vascular accident) Obesity, morbid, BMI 40.0-49.9 CKD (chronic kidney disease), stage III Chronic diastolic CHF (congestive heart failure) Anxiety and depression Pulmonary hypertension Hypothyroidism CAD (coronary artery disease) Diabetes mellitus, type II HLD (hyperlipidemia) Hypertension Surgical History History of cardiac cath s/p stents Social History Smoking Status: Former smoker Do You Dip or Chew Tobacco: No; Hx Alcohol Use: No Hx Substance Use: No Preferred Language: Azerbaijani Communication Ability: Effective Diamond Sander Required: No Beliefs That Will Affect Care: None Current Living Situation: Family Current Living Situation Comment: lives with son Other Information That Helps Us Care for You: No Feels Safe at Home: Yes Safety Concerns: Feels Safe At This Time Gender Identity: Female Assistive Devices: Walker Review of Systems Review of Systems: All systems reviewed & are unremarkable except as noted in HPI & below Physical Exam Physical Exam: General- Not in distress Head- atraumatic Eyes- PERRL. ENT- oropharynx clear Neck- supple, no JVD. Lungs- clear to auscultation no wheezing mild bibasilar crackles more on right side Heart- regular rate and rhythm; no murmur, no gallop. Abdomen- normal bowel sounds, soft, nontender, no distension Extremities- chronic lymphedema seen. no erythema seen Neuro- alert, oriented PERRL, no facial palsy; no dysarthria; obeys simpe commands Results & Data Results & Data Vital Signs (Past 12 Hours) Vital Signs Temp Pulse Resp BP Pulse Ox O2 Del Method O2 Flow Rate 09/24/23 23:15 62 18 94 BiPAP 09/24/23 23:00 61 19 94 09/24/23 22:34 60 09/24/23 22:07 59 L 19 148/70 H 93 BiPAP 09/24/23 21:30 59 L 14 95 09/24/23 21:00 59 L 20 162/75 H 94 BiPAP 09/24/23 20:46 59 L 20 155/95 H 94 BiPAP 09/24/23 20:30 59 L 19 154/76 H 93 BiPAP 09/24/23 20:20 60 17 94 09/24/23 20:15 59 L 15 157/74 H 95 BiPAP 09/24/23 20:00 58 L 13 160/73 H 94 BiPAP 09/24/23 19:46 60 19 161/77 H 94 BiPAP 09/24/23 19:42 66 18 169/87 H 95 BiPAP 09/24/23 19:30 58 L 16 97 09/24/23 19:15 59 L 15 158/75 H 95 BiPAP 50 09/24/23 19:00 60 21 162/73 H 95 BiPAP 09/24/23 18:49 59 L 16 149/74 H 94 BiPAP 09/24/23 18:48 95 BiPAP 09/24/23 18:43 60 18 95 09/24/23 18:41 59 L 09/24/23 18:40 59 L 18 94 BiPAP 09/24/23 18:33 59 L 21 95 BiPAP 09/24/23 18:16 36.4 C L 61 19 128/78 74 L Room Air FiO2 09/24/23 23:15 09/24/23 23:00 40 09/24/23 22:34 09/24/23 22:07 50 09/24/23 21:30 09/24/23 21:00 50 09/24/23 20:46 50 09/24/23 20:30 50 09/24/23 20:20 40 09/24/23 20:15 50 09/24/23 20:00 50 09/24/23 19:46 50 09/24/23 19:42 50 09/24/23 19:30 09/24/23 19:15 09/24/23 19:00 50 09/24/23 18:49 50 09/24/23 18:48 50 09/24/23 18:43 50 09/24/23 18:41 09/24/23 18:40 50 09/24/23 18:33 50 09/24/23 18:16 Diagnostic Findings Laboratory Results WBC 11.42 K/ul (4.8-10.8) H 09/24/23 18:40 RBC 4.27 M/uL (4.20-5.40) 09/24/23 18:40 Hgb 11.5 g/dl (12.0-16.0) L 09/24/23 18:40 Hct 35.9 % (37.0-47.0) L 09/24/23 18:40 MCV 84.1 fL (80.0-100.0) 09/24/23 18:40 MCH 26.9 pg (25.0-34.0) 09/24/23 18:40 MCHC 32.0 g/dL (32.0-36.0) 09/24/23 18:40 RDW Std Deviation 42.1 fL (36.4-46.3) 09/24/23 18:40 RDW Coeff of Sven 13.8 % (11.5-14.5) 09/24/23 18:40 Plt Count 305 K/uL (130-400) 09/24/23 18:40 MPV 9.2 fL (9.4-12.4) L 09/24/23 18:40 Immature Gran % (Auto) 0.8 % 09/24/23 18:40 Neut % (Auto) 76.3 % 09/24/23 18:40 Lymph % (Auto) 15.0 % 09/24/23 18:40 [place] % (Auto) 6.0 % 09/24/23 18:40 Eos % (Auto) 1.0 % 09/24/23 18:40 Baso % (Auto) 0.9 % 09/24/23 18:40 Neut # (Auto) 8.72 K/uL (1.40-6.50) H 09/24/23 18:40 Lymph # (Auto) 1.71 K/uL (1.20-3.40) 09/24/23 18:40 [place] # (Auto) 0.69 K/uL (0.11-0.59) H 09/24/23 18:40 Eos # (Auto) 0.11 K/uL (0.00-0.50) 09/24/23 18:40 Baso # (Auto) 0.10 K/uL (0.00-0.20) 09/24/23 18:40 Immature Gran # (Auto) 0.09 K/uL (0.01-0.20) 09/24/23 18:40 Absolute Nucleated RBC 0.02 K/uL (0.00-0.12) 09/24/23 18:40 Nucleated RBC % (auto) 0.2 % 09/24/23 18:40 PT 11.3 Seconds (9.0-12.0) 09/24/23 18:40 INR 1.0 (0.9-1.1) 09/24/23 18:40 APTT 26 Seconds (21-31) 09/24/23 18:40 PTT Ratio 0.9 09/24/23 18:40 VBG pH 7.37 (7.36-7.41) 09/24/23 18:40 VBG pCO2 45 mmHg (38-50) 09/24/23 18:40 VBG pO2 40 mmHg 09/24/23 18:40 VBG HCO3 26 mmol/L 09/24/23 18:40 VBG O2 Saturation 63.5 % 09/24/23 18:40 VBG Base Excess 0.3 mEq/L 09/24/23 18:40 Sodium 136 mmol/L (136-145) 09/24/23 18:40 Potassium 4.2 mmol/L (3.5-5.1) 09/24/23 18:40 Chloride 102 mmol/L (98-107) 09/24/23 18:40 Carbon Dioxide 25 mmol/L (21-32) 09/24/23 18:40 Anion Gap 9 (3-11) 09/24/23 18:40 BUN 73 mg/dl (6-23) H 09/24/23 18:40 Creatinine 1.71 mg/dl (0.6-1.2) H 09/24/23 18:40 Est Cr Clr Drug Dosing Not Reportable 09/24/23 18:40 Est GFR ( Amer) 35.8 ml/min 09/24/23 18:40 Est GFR (Non-Af Amer) 30.9 ml/min 09/24/23 18:40 BUN/Creatinine Ratio 42.7 (10-20) H 09/24/23 18:40 Glucose 179 mg/dl (70-99(Fasting)) H 09/24/23 18:40 Calcium 9.8 mg/dl (8.6-10.3) 09/24/23 18:40 Magnesium 2.0 mg/dl (1.7-2.4) 09/24/23 18:40 Total Bilirubin 0.5 mg/dl (0.2-1.0) 09/24/23 18:40 AST 10 U/L (13-39) L 09/24/23 18:40 ALT 12 U/L (7-52) 09/24/23 18:40 Alkaline Phosphatase 111 U/L (34-104) H 09/24/23 18:40 Troponin I High Sens 12.9 pg/ml (0-14) 09/24/23 18:40 B-Natriuretic Peptide 196 pg/ml (0-100) H 09/24/23 18:40 Total Protein 7.6 gm/dl (6.0-8.3) 09/24/23 18:40 Albumin 3.5 gm/dl (3.4-5.0) 09/24/23 18:40 Globulin 4.1 gm/dl (2.5-4.0) H 09/24/23 18:40 Albumin/Globulin Ratio 0.9 (0.9-2) 09/24/23 18:40 Procalcitonin 0.06 ng/ml (0-0.5) 09/24/23 18:40 Urine Color Cancelled 09/24/23 18:50 Urine Appearance Cancelled 09/24/23 18:50 Urine pH Cancelled 09/24/23 18:50 Ur Specific [place] Cancelled 09/24/23 18:50 Urine Protein Cancelled 09/24/23 18:50 Urine Glucose (UA) Cancelled 09/24/23 18:50 Urine Ketones Cancelled 09/24/23 18:50 Urine Blood Cancelled 09/24/23 18:50 Urine Nitrite Cancelled 09/24/23 18:50 Urine Bilirubin Cancelled 09/24/23 18:50 Urine Urobilinogen Cancelled 09/24/23 18:50 Ur Leukocyte Esterase Cancelled 09/24/23 18:50 Urine WBC (Auto) Cancelled 09/24/23 18:50 Urine RBC (Auto) Cancelled 09/24/23 18:50 U Hyaline Cast (Auto) Cancelled 09/24/23 18:50 U Epithel Cells (Auto) Cancelled 09/24/23 18:50 Urine Bacteria (Auto) Cancelled 09/24/23 18:50 Ur Renal Epithelial Cell Cancelled 09/24/23 18:50 Benjamín Biurate Crystals Cancelled 09/24/23 18:50 Calcium Oxalate Crystal Cancelled 09/24/23 18:50 Leucine Crystals Cancelled 09/24/23 18:50 Cystine Crystals Cancelled 09/24/23 18:50 Uric Acid Crystals Cancelled 09/24/23 18:50 Triple Phos Crystals Cancelled 09/24/23 18:50 Sulfonamide Crystals Cancelled 09/24/23 18:50 Cholesterol Crystals Cancelled 09/24/23 18:50 Talc Crystals Cancelled 09/24/23 18:50 Tyrosine Crystals Cancelled 09/24/23 18:50 Hippuric Acid Crystals Cancelled 09/24/23 18:50 Unidentified Crystals Cancelled 09/24/23 18:50 Amorphous Sediment Cancelled 09/24/23 18:50 Epithelial Casts Cancelled 09/24/23 18:50 Hyaline Casts Cancelled 09/24/23 18:50 Granular Casts Cancelled 09/24/23 18:50 Waxy Casts Cancelled 09/24/23 18:50 RBC Casts Cancelled 09/24/23 18:50 WBC Casts Cancelled 09/24/23 18:50 Other Casts Cancelled 09/24/23 18:50 Urine Mucus Cancelled 09/24/23 18:50 Urine Other Cancelled 09/24/23 18:50 Urine Trichomonas Cancelled 09/24/23 18:50 Urine Yeast Cancelled 09/24/23 18:50 Urine Sperm Cancelled 09/24/23 18:50 Ur Oval Fat Bodies Cancelled 09/24/23 18:50 Adenovirus (PCR) Not Detected (NotDetected) 09/24/23 18:50 B. pertussis DNA (PCR) Not Detected (NotDetected) 09/24/23 18:50 B.parapertussis DNA PCR Not Detected (NotDetected) 09/24/23 18:50 C. pneumoniae DNA (PCR) Not Detected (NotDetected) 09/24/23 18:50 Coronavirus OC43 (PCR) Not Detected (NotDetected) 09/24/23 18:50 Coronavirus HKU1 (PCR) Not Detected (NotDetected) 09/24/23 18:50 Coronavirus 229E (PCR) Not Detected (NotDetected) 09/24/23 18:50 SARS-CoV-2 (PCR) Not Detected (NotDetected) 09/24/23 18:50 Coronavirus NL63 (PCR) Not Detected (NotDetected) 09/24/23 18:50 Human Metapneumovir PCR Not Detected (NotDetected) 09/24/23 18:50 Influenza Type A (PCR) Not Detected (NotDetected) 09/24/23 18:50 Influenza Type B (PCR) Not Detected (NotDetected) 09/24/23 18:50 M. pneumoniae (PCR) Not Detected (NotDetected) 09/24/23 18:50 Parainfluenza 1 (PCR) Not Detected (NotDetected) 09/24/23 18:50 Parainfluenza 2 (PCR) Not Detected (NotDetected) 09/24/23 18:50 Parainfluenza 3 (PCR) Not Detected (NotDetected) 09/24/23 18:50 Parainfluenza 4 (PCR) Not Detected (NotDetected) 09/24/23 18:50 RSV (PCR) Not Detected (NotDetected) 09/24/23 18:50 Entero/Rhino (PCR) Not Detected (NotDetected) 09/24/23 18:50 ECG Additional Comments: ECG. Sinus bradycardia at the rate of 59. Left ventricular hypertrophy. No significant change was found. Code Status & VTE Plan VTE Prophylaxis Plan VTE Prophylaxis will be ordered: Yes
[2023-09-25] MEDS ORDERED: GLUCAGON FOR INJ 1 MG VIAL SQ PRN (01:15)
[2023-09-25] MEDS ORDERED: GLUCOSE 40% GEL 15 GM TUBE PO PRN (01:15)
[2023-09-25] MEDS ORDERED: CARBOHYDRATES FOR HYPOGLYCEMIA PO PRN (01:15)
[2023-09-25] MEDS ORDERED: GLUCOSE 10 TAB/TUBE PO PRN (01:15)
[2023-09-25] MEDS ORDERED: POLYETHYLENE (MIRALAX) 17 GM PACK PO PRN (01:15)
[2023-09-25] MEDS ORDERED: ACETAMINOPHEN 325 MG TAB PO PRN (01:15)
[2023-09-25] MEDS ORDERED: DEXTROSE 50% 50 ML SYRINGE IV PRN (01:15)
[2023-09-25] MEDS: PIPER/TAZO 4.5g in D5W MINI-B 100 ML IV ONE (02:02)
[2023-09-25] MEDS: HEPARIN SOD 5,000 UNIT/0.5 ML VIAL SQ SCH (05:27)
--- NOTE | 2023-09-25 07:24 | XRay Report ---
XR chest 1V portable HISTORY: 63 years-old Female Dyspnea acute shortness of breath COMPARISON: 07/29/2023 TECHNIQUE: AP view of the chest FINDINGS: Cardiac silhouette is enlarged. Pulmonary vascular congestion with interstitial coarsening. No pneumo thorax. Layering pleural effusions with right greater than left bibasilar consolidation. Ill-defined 9 mm nodular density of the right lung apex. Bones appear grossly intact. IMPRESSION: 1. Cardiomegaly with pulmonary edema. 2. Small pleural effusions with right greater than left bibasilar consolidation which may represent a telectasis versus pneumonia. 3. 9 mm nodular density projected over the right lung apex is likely artifactual. ACT 112: Negative or not required by law. The above report was generated using voice recognition software. It may contain grammatical, syntax o r spelling errors. Electronically signed by: Steve Medley M.D. 09/25/2023 7:23 AM
[2023-09-25] MEDS: PIPERACILLIN/TAZOBACTAM 4.5 GM in DEXTROSE 5% MINI-B 100 ML IV SCH (07:31)
[2023-09-25 07:58] LABS: Basophils # (auto) 0.09 K/uL (0.00-0.20); Basophils % (auto) 0.9 %; Eosinophils # (auto) 0.21 K/uL (0.00-0.50); Eosinophils % (auto) 2.1 %; Hematocrit (blood only) 32.7 % (37.0-47.0); Hemoglobin 10.4 g/dl (12.0-16.0); Immature Granulocytes # (auto) 0.06 K/uL (0.01-0.20); Immature Granulocytes % (auto) 0.6 %; Lymphocytes # (auto) 1.61 K/uL (1.20-3.40); Lymphocytes % (auto) 16.4 %; Mean Corpuscular Hemoglobin 26.5 pg (25.0-34.0); Mean Corpuscular Hgb Conc 31.8 g/dL (32.0-36.0); Mean Corpuscular Volume 83.2 fL (80.0-100.0); Mean Platelet Volume 9.2 fL (9.4-12.4); Monocytes # (auto) 0.74 K/uL (0.11-0.59); Monocytes % (auto) 7.5 %; Neutrophils # (auto) 7.12 K/uL (1.40-6.50); Neutrophils % (auto) 72.5 %; Nucleated RBC # (auto) 0.02 K/uL (0.00-0.12); Nucleated RBC % (auto) 0.2 %; Platelet Count 286 K/uL (130-400); RDW Coefficient of Variation 13.6 % (11.5-14.5); RDW Standard Deviation 41.1 fL (36.4-46.3); Red Blood Count 3.93 M/uL (4.20-5.40); White Blood Count 9.83 K/ul (4.8-10.8)
[2023-09-25] MEDS: FUROSEMIDE 40 MG/4 ML VIAL IV ONE (08:01)
[2023-09-25 08:14] LABS: BUN Creatinine Ratio 46.5 (10-20); Calcium 9.5 mg/dl (8.6-10.3); Creatinine Clr Calc Pharmacy 40.9 ml/min; Est GFR (African American) 39.7 ml/min; Est GFR (Non-African American) 34.2 ml/min; Potassium 3.7 mmol/L (3.5-5.1)
[2023-09-25] MEDS: LANTUS PER UNIT CHARGE SQ SCH (08:18)
[2023-09-25] MEDS: INSULIN ASPART PER UNIT CHARGE SC SCH (08:19)
[2023-09-25] MEDS: amLODIPine BESYLATE 5 MG TAB PO SCH (08:29)
[2023-09-25] MEDS: TORSEMIDE 20 MG TAB PO SCH (08:30)
[2023-09-25] MEDS: ESCITALOPRAM OXALATE 20 MG TAB PO SCH (08:31)
[2023-09-25] MEDS: METOPROLOL SUCC 50MG EXT REL TAB PO SCH (08:32)
[2023-09-25] MEDS: ROSUVASTATIN CALCIUM 20 MG TAB PO SCH (08:32)
[2023-09-25] MEDS: SILDENAFIL CITRATE 20 MG TABLET PO SCH (08:33)
[2023-09-25] MEDS: hydrALAZINE TAB 50 MG TAB PO SCH (08:33)
[2023-09-25] MEDS ORDERED: DOXYCYCLINE HYCLATE 100 MG in DEXTROSE 5% MINI-B 100 ML IV SCH (09:00)
--- NOTE | 2023-09-25 09:07 | Pulmonary Consultation ---
Date of Consultation September 25, 2023 Assessment & Plan (1) Acute hypoxemic respiratory failure: (2) CHF (congestive heart failure): (3) Pulmonary hypertension: (4) RADHA (obstructive sleep apnea): (5) Obesity, morbid, BMI 40.0-49.9: Plan IMPRESSION: 63-year-old female with a significant past medical history of morbid obesity, coronary artery disease, hypertension, CHF, untreated RADHA who presents with acute hypoxic respiratory failure. Pulmonary medicine consulted for ongoing evaluation and management. RECOMMENDATIONS: 1. Acute respiratory failure with hypoxia - Chest x-ray images reviewed and demonstrate bilateral pulmonary edema with trace effusions. The effusions do no t appear amendable to drainage at this point. Would recommend aggressive diuresis. She did well on CPAP last evening. Would recommend positive pressure ventilation if she is dyspneic and would consider for any naps or sleep in a patient that has a prior diagnosis of untreated RADHA. Uncertain of the utility of antibiotics in a patient with a vague clinical history. No significant white count. Negative procalcitonin, and no definitive infiltrative processes noted on plain chest films. 2. CHF - Appears to be more of an acute on chronic process. She does take torsemide 20 mg twice daily. We will provide her an additional dose of 40 mg IV Lasix this morning to help improve her urine output as she does appear volume overloaded on exam. 3. Pulmonary hypertension - As previously diagnosed at an outside facility. Unfortunately, the patient does have contributing factors including poorly controlled hypertension and untreated RADHA. 4. RADHA - Patient reports previously diagnosed obstructive sleep apnea, but had never received a CPAP device. She reports that she has used supplemental oxygen in the past, but did not actually use it so it was returned. It appears as though she was noncompliant with multiple therapies. Would recommend outpatient polysomnography for treatment of her baseline sleep apnea. Thank you for allowing us to participate in the care of this pleasant patient. Pulmonary medicine will follow along. Supervising Physician Co-Signing Physician Notes Patient seen and examined. Agree with AP as noted by CASTRO. Pt appears to be volume overloaded and diuresis recommended. IS and flutter and OOB will be helpful. Multiple outpatient issues that will need to be addressed going forwar d. Will try to stabilize her acute issues and arrange for outpatient follow up. History of Present Illness Reason for Consultation: resp distress, pneumonia Requesting Physician: Dr. Mccall Attending Physician: Noelle Hernandez MD History of Present Illness Patient is a 63-year-old female with a significant past medical history of recent CVA, obesity, CKD 3, CHF, pulmonary hypertension, coronary artery disease, hypothyroidism, type 2 diabetes, hyperlipidemia, and hypertension who presented to the emergency department with a 3-day history of cough and shortness of breath. She states that she woke Thursday and noticed a cough productive of nonfoul sputum. Unfortunately, the patient is visually impaired and states that she was unable to characterize the color of the sputum, but reports that it did not taste foul and she did not think much of it. She was started on Mucinex which did not seem to help alleviate her symptoms. Unfortunately, on , her [id number] came home and found her in respiratory distress. They used a pulse oximeter that they had at their home which was reading in the 50s. She was brought to the emergency department where she was evaluated and managed for possible RIGHT lower lobe infiltrative process. Chest x-ray was reviewed and demonstrates tomas pulmonary edema with bilateral trace pleural effusions. Her white count was slightly elevated. Procalcitonin unremarkable. No other significant electrolyte abnormalities other than the baseline elevation of her renal function. BNP moderately elevated. Upon evaluation in room 233, the patient is awake, alert, and oriented. She reports that she has never had a diagnosis of pulmonary disease. She is a lifelong non-smoker. She has no prior diagnosis of asthma, chronic bronchitis, or COPD. She reports that she has had pneumonia in the past. She states that she has previously been managed for pulmonary hypertension and her primary specialists were based in [facility]. She moved locally in April of last year secondary to decline in her health. She does report a prior history of thoracentesis several years ago to drain fluid around her lung. Additionally, she describes what sounds like a pulmonary nodule for which she underwent a PET/CT and was only found to have what she describes as an esophageal infection which recovered. Otherwise, the patient reports that she is feeling much better since arriving. She is less short of breath at this time. She describes no complaints of chest pain, palpitations, dizziness, lightheadedness, hemoptysis, nausea, vomiting, or abdominal discomfort. Allergies Allergy/AdvReac Type Severity Reaction Status Date / Time No Known Allergies Allergy Verified 09/24/23 20:25 Home Medications Medication Instructions Recorded Confirmed Type amlodipine 10 mg tablet 10 mg PO DAILY 07/29/23 09/24/23 History escitalopram oxalate 20 mg tablet 20 mg PO DAILY 07/29/23 09/24/23 History hydralazine 100 mg tablet 100 mg PO TID 07/29/23 09/24/23 History lisinopril 2.5 mg tablet 10 mg PO DAILY 07/29/23 09/24/23 History metformin 500 mg tablet 500 mg PO BID 07/29/23 09/24/23 History metoprolol succinate 100 mg 100 mg PO QAM 07/29/23 09/24/23 History tablet,extended release 24 hr sildenafil (pulm.hypertension) 20 20 mg PO TID 07/29/23 09/24/23 History mg tablet spironolactone 25 mg tablet 25 mg PO DAILY 07/29/23 09/24/23 History rosuvastatin 20 mg tablet (Crestor) 20 mg PO QAM #0 tabs 08/07/23 09/24/23 Rx empagliflozin 25 mg tablet 25 mg PO QAM 09/24/23 09/24/23 History (Jardiance) insulin glargine 100 unit/mL (3 25 unit subcut QAM 09/24/23 09/24/23 History mL) subcutaneous pen (Lantus Solostar U-100 Insulin) sodium zirconium cyclosilicate 10 10 g PO QAM 09/24/23 09/24/23 History gram oral powder packet (Lokelma) torsemide 20 mg tablet 20 mg PO BID 09/24/23 09/24/23 History aspirin 325 mg tablet 325 mg PO DAILY 09/25/23 09/25/23 History Patient History Medical History CVA (cerebral vascular accident) Obesity, morbid, BMI 40.0-49.9 CKD (chronic kidney disease), stage III Chronic diastolic CHF (congestive heart failure) Anxiety and depression Pulmonary hypertension Hypothyroidism CAD (coronary artery disease) Diabetes mellitus, type II HLD (hyperlipidemia) Hypertension Surgical History History of cardiac cath s/p stents Social History Smoking Status: Former smoker Do You Dip or Chew Tobacco: No; Hx Alcohol Use: No Hx Substance Use: No Preferred Language: Sinhala Communication Ability: Effective Security Incident Handler Required: No Beliefs That Will Affect Care: None Current Living Situation: Family Current Living Situation Comment: lives with son Other Information That Helps Us Care for You: No Feels Safe at Home: Yes Safety Concerns: Feels Safe At This Time Gender Identity: Female Assistive Devices: Walker Review of Systems Review of Systems: A complete 10 point review of systems was reviewed with the patient with pertinent positives and negatives as per history of present illness. All else were negative. Physical Exam Physical Exam: VITAL SIGNS - Vital signs and nursing notes were reviewed. GENERAL - 63-year-old female appearing her stated age who is in no acute distress. Communicates well with provider and answers questions appropriately. SKIN - Without rashes or lesions. NOSE - Midline and without cyanosis. MOUTH/OROPHARYNX - Without perioral cyanosis. NECK - Neck with FROM. LUNGS - Chest wall evaluation demonstrates a kyphotic chest wall A:P diameter. Auscultation reveals fine basilar rales. Diminished breath sounds. No wheezes or rhonchi. CARDIAC - RRR with S1/S2. No murmur, rubs, or gallops appreciated. ABDOMEN - Abdominal inspection demonstrates an obese abdomen. BS normoactive all four quadrants. No tenderness, palpable masses, or ascites noted. EXTREMITIES - Nail clubbing not present. No peripheral cyanosis. Moderate pretibial edema present. +3/5 radial palpated throughout. PSYCH - A&Ox3 and cooperates fully with examiner. Pt is very pleasant and int eracts well with examiner. Results & Data Results & Data Vital Signs (Past 12 Hours) Vital Signs Temp Pulse Pulse Resp BP BP BP 09/25/23 07:20 36.6 C 58 L 20 155/72 H 09/25/23 03:49 36.6 C 58 L 16 152/73 H 09/25/23 03:30 58 L 18 09/25/23 02:36 60 09/25/23 01:46 09/25/23 01:26 60 24 151/79 H 09/25/23 00:58 36.9 C 61 18 181/69 H 09/24/23 23:15 62 18 09/24/23 23:00 61 19 09/24/23 22:34 60 09/24/23 22:07 59 L 19 148/70 H 09/24/23 21:30 59 L 14 09/24/23 21:00 59 L 20 162/75 H 09/24/23 20:46 59 L 20 155/95 H Pulse Ox O2 Del Method O2 Flow Rate FiO2 09/25/23 07:20 90 Nasal Cannula 4 09/25/23 03:49 93 BiPAP 40 09/25/23 03:30 94 40 09/25/23 02:36 09/25/23 01:46 BiPAP 40 09/25/23 01:26 92 BiPAP 40 09/25/23 00:58 95 BiPAP 09/24/23 23:15 94 BiPAP 09/24/23 23:00 94 40 09/24/23 22:34 09/24/23 22:07 93 BiPAP 50 09/24/23 21:30 95 09/24/23 21:00 94 BiPAP 50 09/24/23 20:46 94 BiPAP 50 PG Care Time/CCT Total # of Minutes Spent Total Time Spent with Patient: Total time spent is greater than 50% in coordination of care (as documented) at patient's floor/unit and/or counseling patient: Coding Level of Care Code 61523 INT INP/OBS CARE 3/75MIN Diagnoses Acute hypoxemic respiratory failure J96.01 CHF (congestive heart failure) I50.9 Pulmonary hypertension I27.20 RADHA (obstructive sleep apnea) G47.33 Obesity, morbid, BMI 40.0-49.9 E66.01
[2023-09-25 09:16] LABS: Estimated Average Glucose 200 mg/dl; Hemoglobin A1C 8.6 % (4.5-5.6)
[2023-09-25] MEDS: ASPIRIN 325 MG ECTAB PO SCH (10:12)
--- NOTE | 2023-09-25 10:12 | CT Scan Report ---
CT chest diagnostic wo con CT DOSE: 730.03 mGy.cm CLINICAL HISTORY: 63 years-old Female with pneumonia. hx of left apical opacity. Acute short of cherrie th TECHNIQUE: Multiaxial CT images of the chest were performed without contrast. A dose lowering techni que was utilized adhering to the principles of ALARA. COMPARISON: Chest radiograph 09/24/2023 FINDINGS: Unremarkable thyroid. Pathologically enlarged lymph nodes of the chest include subcarinal l ymph nodes measuring up to 2.8 x 1.8 cm. AP window lymph nodes measure up to 1.5 cm in short axis. Mi ld cardiomegaly with extensive coronary artery calcifications. No thoracic aortic aneurysm. Mild dila tion of the pulmonary artery may represent pulmonary dural hypertension. Small left with [id number] right pleural effusions. No pneumothorax. Intralobular septal thick ening with bilateral mixed interstitial and alveolar opacities. Dense dependent bibasilar consolidati on with air bronchograms. Central airways are patent. No acute upper abdominal abnormality identified. Mild generalized body wall edema. No acute fracture. IMPRESSION: 1. Pathologic mediastinal and hilar lymph nodes. Follow-up with hematology/oncology recommended. 2. Cardiomegaly with interstitial pulmonary edema, small pleural effusions with bibasilar consolidati on. 3. Patchy bilateral groundglass and airspace opacities may represent alveolar pulmonary edema versus multifocal pneumonia. Follow-up recommended. ACT 112: Positive. There are findings on this exam that require communication between the performing entity and the patient following Patient Test Result Information Act ([place] Act 112) guidelines. Electronically signed by: Steve Medley M.D. 09/25/2023 10:10 AM
[2023-09-25] MEDS: SODIUM ZIRCONIUM CYCLOSILICATE 10 GM PACKET PO SCH (10:17)
--- NOTE | 2023-09-25 10:38 | Nephrology Consultation ---
Date of Consultation September 25, 2023 Assessment & Plan (1) Acute hypoxemic respiratory failure: Currently has Pulm edema and Causing resp failure. Does need more iv lasix. got 40 iv earlier.will change to lasix 40 iv q12. Can give more if felt needed (2) CKD (chronic kidney disease), stage III: Current creat is 1.5 and is better than recent Discharge. ASHLY in with peak creat 4. Would say 1.3 is more like baseline K is 3.7 so no need of Lokelma. Also with iv lasix K will likely go lower. Like to see how she holds with iv lasix before adding JAMIE/ARB or Aldactone. But we should be able to in the coming days. History of Present Illness Reason for Consultation: CKD with h/o Hyperkalemia and need Guidance for meds Attending Physician: Noelle Hernandez MD History of Present Illness 63/F with CKD and recent episode of ASHLY iin with peak creat of 4 and had high K also. Aldactone and Lisinopril stopped and was discharged on Lokelma. Discharge day creat was 1.9 Also has recent CVA, obesity, CHF, pulmonary hypertension, coronary artery disease, hypothyroidism, type 2 diabetes, hyperlipidemia, and hypertension who presented to the emergency department with a 3-day history of cough and shortness of breath and Hypoxia noted on Home Pulse Oximeter. She was brought to the emergency department where she was evaluated and managed for possible RIGHT lower lobe infiltrative process. Chest x-ray was reviewed and demonstrates tomas pulmonary edema with bilateral trace pleural effusions. Her white count was slightly elevated. Procalcitonin unremarkable. Creat 1.7 and this AM even better at 1.5. K was normal. Pulm Saw the patient already--Got 1 dose of iv lasix and also on oral torsemide 20 Bid ( same dose as outpt). Also on Abx. ROS--se2.e HPI/ systems otherwise negative. Physical Exam Physical Exam: VITAL SIGNS - BP is 155/72 o2 4 liters 90% GENERAL - No overt Distress. Communicates well with provider and answers questions appropriately. SKIN - Without rashes or lesions. MOUTH/OROPHARYNX - MM moist. No JVD. LUNGS - Auscultation reveals fine basilar rales. Diminished breath sounds. No wheezes or rhonchi. CARDIAC - RRR with S1/S2. No murmur, rubs, or gallops appreciated. ABDOMEN - Soft and no tenderness EXTREMITIES - 1+ edema PSYCH - A&Ox3 and cooperates fully with examiner. Pt is very pleasant and interacts well with examiner. Allergies Allergy/AdvReac Type Severity Reaction Status Date / Time No Known Allergies Allergy Verified 09/24/23 20:25 Home Medications Medication Instructions Recorded Confirmed Type amlodipine 10 mg tablet 10 mg PO DAILY 07/29/23 09/24/23 History escitalopram oxalate 20 mg tablet 20 mg PO DAILY 07/29/23 09/24/23 History hydralazine 100 mg tablet 100 mg PO TID 07/29/23 09/24/23 History lisinopril 2.5 mg tablet 10 mg PO DAILY 07/29/23 09/24/23 History metformin 500 mg tablet 500 mg PO BID 07/29/23 09/24/23 History metoprolol succinate 100 mg 100 mg PO QAM 07/29/23 09/24/23 History tablet,extended release 24 hr sildenafil (pulm.hypertension) 20 20 mg PO TID 07/29/23 09/24/23 History mg tablet spironolactone 25 mg tablet 25 mg PO DAILY 07/29/23 09/24/23 History rosuvastatin 20 mg tablet (Crestor) 20 mg PO QAM #0 tabs 08/07/23 09/24/23 Rx empagliflozin 25 mg tablet 25 mg PO QAM 09/24/23 09/24/23 History (Jardiance) insulin glargine 100 unit/mL (3 25 unit subcut QAM 09/24/23 09/24/23 History mL) subcutaneous pen (Lantus Solostar U-100 Insulin) sodium zirconium cyclosilicate 10 10 g PO QAM 09/24/23 09/24/23 History gram oral powder packet (Lokelma) torsemide 20 mg tablet 20 mg PO BID 09/24/23 09/24/23 History aspirin 325 mg tablet 325 mg PO DAILY 09/25/23 09/25/23 History Patient History Medical History CVA (cerebral vascular accident) Obesity, morbid, BMI 40.0-49.9 CKD (chronic kidney disease), stage III Chronic diastolic CHF (congestive heart failure) Anxiety and depression Pulmonary hypertension Hypothyroidism CAD (coronary artery disease) Diabetes mellitus, type II HLD (hyperlipidemia) Hypertension Surgical History History of cardiac cath s/p stents Social History Smoking Status: Former smoker Do You Dip or Chew Tobacco: No; Hx Alcohol Use: No Hx Substance Use: No Preferred Language: Amharic Communication Ability: Effective Vapor Coater Required: No Beliefs That Will Affect Care: None Current Living Situation: Family Current Living Situation Comment: lives with son Other Information That Helps Us Care for You: No Feels Safe at Home: Yes Safety Concerns: Feels Safe At This Time Gender Identity: Female Assistive Devices: Walker Results & Data Vital Signs (Past 12 Hours) Vital Signs Temp Pulse Pulse Resp BP BP Pulse Ox 09/25/23 07:20 36.6 C 58 L 20 155/72 H 90 09/25/23 03:49 36.6 C 58 L 16 152/73 H 93 09/25/23 03:30 58 L 18 94 09/25/23 02:36 60 09/25/23 01:46 09/25/23 01:26 60 24 151/79 H 92 09/25/23 00:58 36.9 C 61 18 181/69 H 95 09/24/23 23:15 62 18 94 09/24/23 23:00 61 19 94 O2 Del Method O2 Flow Rate FiO2 09/25/23 07:20 Nasal Cannula 4 09/25/23 03:49 BiPAP 40 09/25/23 03:30 40 09/25/23 02:36 09/25/23 01:46 BiPAP 40 09/25/23 01:26 BiPAP 40 09/25/23 00:58 BiPAP 09/24/23 23:15 BiPAP 09/24/23 23:00 40 Laboratory Results reviewed Diagnostic Findings reviewed
[2023-09-25] MEDS ORDERED: Nursing to Pharmacy Communication SCH (10:45)
[2023-09-25] MEDS: DOXYCYCLINE HYCLATE 100 MG CAP PO SCH (13:04)
[2023-09-25 14:02] LABS: Appearance Urine Clear (Clear); Bacteria Urine Automated None Seen (None Seen); Bilirubin Urine Negative (Negative); Blood Urine Negative (Negative); Color Urine Yellow; Epithelial Cell Urine Auto 0-2 /hpf (0-2); Glucose Urine UA Negative (Negative); Ketones Urine Negative (Negative); Leukocyte Esterase Urine Negative (Negative); Nitrite Urine Negative (Negative); Protein Urine 3+ (Negative); RBC Urine Automated 0-2 /hpf (0-2); Specific Gravity Urine 1.011 (1.000-1.030); Urobilinogen Urine Negative (Negative); WBC Urine Automated 0-5 /hpf (0-5); pH Urine 5.5 (4.5-7.5)
--- NOTE | 2023-09-25 16:30 | Hospitalist Progress Note ---
Date of Service September 25, 2023 Assessment & Plan (1) Acute hypoxemic respiratory failure: Plan: 61-year-old female with past medically significant for type 2 diabetes, history of diabetic ulcer of left heel, obstructive sleep apnea, nocturnal hypoxemia, pulmonary hypertension, chronic diastolic CHF, history of CAD s/p stent, hypertension, history of CVA, obesity, CKD stage III/IV, history of hyperkalemia, history of hidradenitis suppurativa, history of depression, history of lymphedema, general anxiety disorder, hypothyroidism, history of noncompliance, history of visual disturbance from bilateral macular degeneration who lives at home with her son and [id number] was brought in because of respiratory distress and was found to be have right lower lobe pneumonia. Patient states that since Thursday she is feeling cold symptoms. She is having cough bringing up whitish phlegm. Poor appetite since yesterday. Today she started feeling short of breath. When [id number] came home she was found to be very short of breath. [id number] checked her pulse ox and it was low and brought to the hospital. She was saturating only 76% on room air and she was placed on BiPAP. Currently on BiPAP she saturating okay. She was able to give her history. Denies any headache. Some runny nose. No sore throat. Denies any chest pain. No nausea. No difficulty swallowing. No abdominal pain. Lately having some diarrhea because she restarted metformin. Micturating okay. Currently hemodynamics are okay. Denies any fevers. Acute hypoxemic respiratory failure Likely secondary to acute on chronic diastolic CHF and is complicated by possible pneumonia Currently requiring BiPAP Received Rocephin and azithromycin Has been getting intravenous Zosyn and oral Doxy for now Appreciate pulmonary input and recommendation-continue diuresis, antibiotic may not be needed. No need to have any thoracentesis Medically better and has been requiring 3.5 L to maintain saturation Acute on Chronic diastolic CHF Home torsemide has been changed to intravenous Lasix 40 mg twice daily Will monitor intake output Monitor PRP Chronic kidney disease History of hyperkalemia Last admission spironolactone and lisinopril was held and was started on Lokelma daily Supposed to follow-up with nephrology Will consult nephrology while in the hospital Restarting of spironolactone and lisinopril as per nephrology Lokelma has been on hold Appreciate nephrology input and recommendation History of diabetes Hold Jardiance and metformin Lantus and sliding scale Will monitor Pulmonary hypertension On sildenafil History of CAD s/p stent On metoprolol succinate, Crestor and aspirin Heart rate has been low Will hold beta-leidy as per hold parameters History of CVA Last admission On statin and aspirin Supposed to get Holter Hyperlipidemia On statin History of obstructive sleep apnea Hypertension On amlodipine, hydralazine, metoprolol succinate, torsemide Will monitor Depression and generalized anxiety disorder On Lexapro History of hypothyroidism Not on meds Will check TSH Left apical opacity Supposed to get follow-up CT chest Will get CT chest within the hospital DVT prophylaxis Heparin subcu CODE STATUS Patient was DNR/DNI last admission Patient states she is okay to be full code if there is really chance of recovery and she wants her son to make decision. Admission and Anticipated Discharge Date Admission Date: September 24, 2023 Subjective 09/24/2021 The patient was seen and examined in telemetry unit She has been feeling much better since admission Her cough and respiratory symptoms have been better No fever and or chills Review of Systems Review of Systems: All systems reviewed and are unremarkable except as noted below Physical Exam Physical Exam: Lying in bed comfortably Constitutional: well developed, well nourished, + ill appearing and + obese Eyes: PERRL, conjunctivae normal, anicteric sclerae ENMT: external ear and nose normal, oropharynx normal Neck: trachea midline, no thyromegaly Respiratory: no respiratory distress Auscultation: + diminished lung sounds and + crackles (Occasional crackles at the bases) Cardiovascular: Rate/Rhythm: regular rate, regular rhythm and + bradycardic Heart Sounds: normal S1 and normal S2; no murmur Extremities: + edema (Bilateral lymphedema with 1+ edema) Gastrointestinal (Abdomen): Inspection/Auscultation: normal bowel sounds; abdomen not distended Percussion/Palpation: abdomen soft; abdomen nontender Musculoskeletal: No acute arthritis involving any of the joint Neurologic: normal touch/pain/proprioception and moves all extremities; no focal motor deficits Psychiatric: A+Ox3, euthymic affect Lymphatic: no cervical or axillary lymphadenopathy Results & Data Results & Data Vital Signs (Past 12 Hours) Vital Signs Temp Pulse Pulse Resp BP BP Pulse Ox 09/25/23 15:57 36.6 C 57 L 18 111/67 90 09/25/23 10:59 36.7 C 58 L 18 120/71 90 09/25/23 07:20 36.6 C 58 L 20 155/72 H 90 09/25/23 07:00 62 O2 Del Method O2 Flow Rate 09/25/23 15:57 Nasal Cannula 3.5 09/25/23 10:59 Nasal Cannula 3.5 09/25/23 07:20 Nasal Cannula 4 09/25/23 07:00 Laboratory Results Short CBC 09/24/23 09/25/23 Range/Units 18:40 07:22 WBC 11.42 H 9.83 (4.8-10.8) K/ul Hgb 11.5 L 10.4 L (12.0-16.0) g/dl Hct 35.9 L 32.7 L (37.0-47.0) % Plt Count 305 286 (130-400) K/uL BMP 09/24/23 09/25/23 18:40 07:22 Sodium 136 139 Potassium 4.2 3.7 Chloride 102 105 Carbon Dioxide 25 26 BUN 73 H 73 H Creatinine 1.71 H 1.57 H Glucose 179 H 136 H Calcium 9.8 9.5 Liver Function 09/24/23 Range/Units 18:40 Total Bilirubin 0.5 (0.2-1.0) mg/dl AST 10 L (13-39) U/L ALT 12 (7-52) U/L Alkaline Phosphatase 111 H (34-104) U/L Albumin 3.5 (3.4-5.0) gm/dl Urine 09/24/23 09/25/23 Range/Units 18:50 13:25 Urine Color Cancelled Yellow Urine Appearance Cancelled Clear Urine pH Cancelled 5.5 Ur Specific [place] Cancelled 1.011 Urine Protein Cancelled 3+ H Urine Glucose (UA) Cancelled Negative Medications Administered Current Inpatient Medications Acetaminophen (Acetaminophen 325 Mg Tab) 650 mg PO Q4H PRN PRN Reason: Pain or Fever Stop: 10/25/23 01:14 Amlodipine Besylate (Amlodipine Besylate 5 Mg Tab) 10 mg PO DAILY ZOE Stop: 10/25/23 08:59 Last Admin: 09/25/23 08:29 Dose: 10 mg Aspirin (Aspirin 325 Mg Ectab) 325 mg PO DAILY ZOE Stop: 10/25/23 08:59 Last Admin: 09/25/23 10:12 Dose: 325 mg Dextrose (Dextrose 50% 50 Ml Syringe) 25 - 50 ml IV UD PRN; Protocol PRN Reason: Hypoglycemia Protocol Stop: 10/25/23 01:14 Doxycycline Hyclate (Doxycycline Hyclate 100 Mg Cap) 100 mg PO BID ZOE Stop: 10/02/23 11:14 Last Admin: 09/25/23 13:04 Dose: 100 mg Escitalopram Oxalate (Escitalopram Oxalate 20 Mg Tab) 20 mg PO DAILY ZOE Stop: 10/25/23 08:59 Last Admin: 09/25/23 08:31 Dose: 20 mg Furosemide (Furosemide 40 Mg/4 Ml Vial) 40 mg IV BID ZOE Stop: 10/25/23 20:59 Glucagon (Glucagon For Inj 1 Mg Vial) 1 mg SQ UD PRN; Protocol PRN Reason: Hypoglycemia Protocol Stop: 10/25/23 01:14 Glucose (Glucose 10 Tab/Tube) 4 - 8 tab PO UD PRN; Protocol PRN Reason: Hypoglycemia Treatment Stop: 10/25/23 01:14 Glucose (Glucose 40% Gel 15 Gm Tube) 15 - 30 gm PO UD PRN; Protocol PRN Reason: Hypoglycemia Protocol Stop: 10/25/23 01:14 Heparin Sodium (Porcine) (Heparin Sod 5,000 Unit/0.5 Ml Vial) 5,000 units SQ Q8 ZOE Stop: 10/25/23 05:59 Last Admin: 09/25/23 14:19 Dose: 5,000 units Hydralazine HCl (Hydralazine Tab 50 Mg Tab) 100 mg PO TID ZOE Stop: 10/25/23 08:59 Last Admin: 09/25/23 14:18 Dose: 100 mg Piperacillin Sod/Tazobactam (Sod 4.5 gm/ Dextrose) 100 mls @ 25 mls/hr IV Q8H [facility]; Protocol Stop: 10/02/23 07:59 Last Admin: 09/25/23 16:19 Dose: 25 mls/hr Insulin Aspart (Insulin Aspart Per Unit Charge) 0 units SC ACHS ZOE Stop: 10/25/23 07:29 Last Admin: 09/25/23 12:20 Dose: 6 units Insulin Glargine (Lantus Per Unit Charge) 25 units SQ QAM ZOE Stop: 10/25/23 08:59 Last Admin: 09/25/23 08:18 Dose: 25 units Metoprolol Succinate (Metoprolol Succ 50mg Ext Rel Tab) 100 mg [facility] [place] Stop: 10/25/23 08:59 Last Admin: 09/25/23 08:32 Dose: Not Given Miscellaneous (Carbohydrates For Hypoglycemia ) 15 - 30 gm PO UD PRN PRN Reason: Hypoglycemia Protocol Stop: 10/25/23 01:14 Polyethylene Glycol (Polyethylene (Miralax) 17 Gm Pack) 17 gm PO DAILY PRN PRN Reason: Constipation Stop: 10/25/23 01:14 Rosuvastatin Calcium (Rosuvastatin Calcium 20 Mg Tab) 20 mg PO QAM [facility] Stop: 10/25/23 08:59 Last Admin: 09/25/23 08:32 Dose: 20 mg Sildenafil Citrate (Sildenafil Citrate 20 Mg Tablet) 20 mg PO TID [facility] Stop: 10/25/23 08:59 Last Admin: 09/25/23 14:18 Dose: 20 mg
[2023-09-25] MEDS: FUROSEMIDE 40 MG/4 ML VIAL IV SCH (20:44)
--- NOTE | 2023-09-26 00:07 | Electrocardiogram Report ---
Test Reason : Blood Pressure : / mmHG Vent. Rate : 059 BPM Atrial Rate : 059 BPM P-R Int : 170 ms QRS Dur : 116 ms QT Int : 442 ms P-R-T Axes : 030 -24 028 degrees QTc Int : 437 ms Sinus bradycardia Left ventricular hypertrophy with QRS widening ( R in aVL , Bakari product ) Abnormal ECG When compared with ECG of 01-AUG-2023 03:45, No significant change was found Confirmed by Trell Amaya ([id number]) on 09/26/2023 12:06:52 AM Referred By: REFERRED SELF Confirmed By:Trell Amaya
[2023-09-26 08:30] LABS: Thyroid Stimulating Hormone 1.651 uIu/ml (0.300-4.500)
--- NOTE | 2023-09-26 08:30 | Pulmonology Progress Note ---
Date of Service September 26, 2023 Assessment & Plan (1) Acute hypoxemic respiratory failure: (2) CHF (congestive heart failure): (3) Pulmonary hypertension: (4) RADHA (obstructive sleep apnea): (5) Obesity, morbid, BMI 40.0-49.9: Plan IMPRESSION: 63-year-old female with a significant past medical history of morbid obesity, coronary artery disease, hypertension, CHF, untreated RADHA who presents with acute hypoxic respiratory failure secondary to fluid overload. She is improved with diuretics. RECOMMENDATIONS: 1. Acute respiratory failure with hypoxia - Chest x-ray images reviewed and demonstrate bilateral pulmonary edema with trace effusions. The effusions do not appear amendable to drainage at this point. Would recommend aggressive diuresis. No suspicion for infection and antibiotics can be discontinued. Incentive spirometry and out of bed to chair and ambulate as tolerated. Patient may require supplemental oxygen at discharge as apparently this was prescribed in the past. Outpatient PFTs recommended 2. CHF - Appears to be more of an acute on chronic process. She does take torsemide 20 mg twice daily. We will provide her an additional dose of 40 mg IV Lasix this morning to help improve her urine output as she does appear volume overloaded on exam. 3. Pulmonary hypertension - As previously diagnosed at an outside facility. Unfortunately, the patient does have contributing factors including poorly controlled hypertension and untreated RADHA. Will need to optimize comorbid conditions including fluid overload, diastolic heart failure, sleep disordered breathing, and potential obstructive lung disease and repeat the echocardiogram in 3 to 6 months. Unclear why or who started the patient on sildenafil. Typically this medication is not used in pulmonary hypertension which is WHO group 2 which I suspect the patient has as well as group 3. Will need to get outpatient records to review. Can likely be discontinued at some point. 4. RADHA - Patient reports previously diagnosed obstructive sleep apnea, but had never received a CPAP device. She reports that she has used supplemental oxygen in the past, but did not actually use it so it was returned. It appears as though she was noncompliant with multiple therapies. Would recommend outpatient polysomnography for treatment of her baseline sleep apnea. 5. The patient needs PT and OT evaluations to determine whether or not rehab or placement is required. Feel free to contact us with questions or concerns Admission and Anticipated Discharge Date Admission Date: September 24, 2023 Subjective Patient seen and examined. EMR reviewed. The patient is sitting in bed eating breakfast. She believes that her breathing is somewhat better. Her oxygen requirement is decreased. She does not use oxygen or CPAP at home. She is not coughing or expectorating phlegm. She does not report any wheezing. She is not been out of bed. Review of Systems 2 Review of Systems: All systems reviewed & are unremarkable except as noted in Subjective Physical Exam 2 Constitutional: WD/WN, vitals as above + morbidly obese Neck: trachea midline, no thyromegaly Respiratory: no respiratory distress, no labored breathing, no cough and not tachypneic Auscultation: + diminished lung sounds; no crackles and no wheezes Cardiovascular: Heart Sounds: normal S1, normal S2 and + murmur E xtremities: + edema Gastrointestinal (Abdomen): normal bowel sounds, soft, nontender, no hepatosplenomegaly Musculoskeletal: Extremities: extremities normal to inspection Skin: no rashes, warm and dry Neurologic: Nonfocal exam Lymphatic: no cervical lymphadenopathy Results & Data Results & Data Vital Signs (Past 12 Hours) Vital Signs Temp Pulse Pulse Resp BP Pulse Ox O2 Del Method 09/26/23 07:13 59 L 09/26/23 03:00 36.5 C 62 16 136/74 92 Nasal Cannula 09/26/23 00:00 36.7 C 62 18 122/70 90 Nasal Cannula 09/25/23 22:56 59 L 09/25/23 22:37 Nasal Cannula O2 Flow Rate 09/26/23 07:13 09/26/23 03:00 09/26/23 00:00 09/25/23 22:56 09/25/23 22:37 3 Laboratory Results 09/25/23 07:22 Diagnostic Findings No new imaging PG Care Time/CCT Total # of Minutes Spent Total Time Spent with Patient: Total time spent is greater than 50% in coordination of care (as documented) at patient's floor/unit and/or counseling patient: Coding Level of Care Code 41788 SUB INP/OBS CARE 2/35MIN Diagnoses Acute hypoxemic respiratory failure J96.01 CHF (congestive heart failure) I50.9 Pulmonary hypertension I27.20 RADHA (obstructive sleep apnea) G47.33 Obesity, morbid, BMI 40.0-49.9 E66.01
[2023-09-26 08:31] LABS: Hematocrit (blood only) 32.5 % (37.0-47.0); Hemoglobin 10.7 g/dl (12.0-16.0); Mean Corpuscular Hgb Conc 32.9 g/dL (32.0-36.0); Mean Corpuscular Volume 81.9 fL (80.0-100.0); Mean Platelet Volume 9.8 fL (9.4-12.4); Platelet Count 313 K/uL (130-400); RDW Coefficient of Variation 13.9 % (11.5-14.5); RDW Standard Deviation 41.3 fL (36.4-46.3); Red Blood Count 3.97 M/uL (4.20-5.40); White Blood Count 8.53 K/ul (4.8-10.8)
[2023-09-26 08:32] LABS: Basophils # (auto) 0.07 K/uL (0.00-0.20); Basophils % (auto) 0.8 %; Eosinophils # (auto) 0.51 K/uL (0.00-0.50); Immature Granulocytes # (auto) 0.03 K/uL (0.01-0.20); Immature Granulocytes % (auto) 0.4 %; Lymphocytes # (auto) 1.35 K/uL (1.20-3.40); Lymphocytes % (auto) 15.8 %; Monocytes # (auto) 0.58 K/uL (0.11-0.59); Monocytes % (auto) 6.8 %; Neutrophils # (auto) 5.99 K/uL (1.40-6.50); Neutrophils % (auto) 70.2 %; Polychromasia 1+
[2023-09-26 09:03] LABS: BUN Creatinine Ratio 41.1 (10-20); Calcium 9.5 mg/dl (8.6-10.3); Creatinine Clr Calc Pharmacy 34.9 ml/min; Est GFR (African American) 31.5 ml/min; Est GFR (Non-African American) 27.2 ml/min; Phosphorus 3.9 mg/dl (2.5-4.9); Potassium 4.2 mmol/L (3.5-5.1)
--- NOTE | 2023-09-26 11:52 | Nephrology Progress Note ---
Date of Service September 26, 2023 Assessment & Plan (1) Acute hypoxemic respiratory failure: Plan: Currently has Pulm edema and Causing resp failure. Does need more iv lasix. Continue lasix 40 iv q12. Can give more if felt needed (2) CKD (chronic kidney disease), stage III: Plan: Patient with acute kidney injury likely hemodynamically mediated in setting of diuresis. Creatinine uptrending to 1.9 from 1.5 yesterday. Will continue diuresis. Her new baseline might be closer to 2. ASHLY in with peak creat 4. Also with iv lasix K will likely go lower. Like to see how she holds with iv lasix before adding JAMIE/ARB or Aldactone if at all. Admission and Anticipated Discharge Date Admission Date: September 24, 2023 Subjective Seen for acute kidney injury and CHF. She feels better today. Still on oxygen nasal cannula. Creatinine uptrending to 1.9. Review of Systems 2 Review of Systems: All other systems were reviewed and negative except as noted in HPI Physical Exam 2 Physical Exam: General exam: Appears comfortable, no acute distress HEENT: Pupils are equal and reactive to light Neck: No JVD, neck is supple trachea is midline Respiratory system: Clear breath sounds bilaterally. Gastrointestinal: Abdomen is soft, non distended, non tender, bowel sounds are present CVS: Regular rate and rhythm. No murmurs, rubs or gallops Musculoskeletal: No joint or muscle tenderness Extremities: Non tender, no edema, peripheral pulses are present Neuro: Oriented, no tremors, no focal neurological deficits Skin: No rashes Results & Data Vital Signs (Past 12 Hours) Vital Signs Temp Pulse Pulse Resp BP BP Pulse Ox 09/26/23 10:51 36.5 C 59 L 18 146/73 H 93 09/26/23 08:35 36.6 C 64 18 126/69 93 09/26/23 07:45 09/26/23 07:13 59 L 09/26/23 03:00 36.5 C 62 16 136/74 92 09/26/23 00:00 36.7 C 62 18 122/70 90 O2 Del Method O2 Flow Rate 09/26/23 10:51 Nasal Cannula 09/26/23 08:35 Nasal Cannula 09/26/23 07:45 Nasal Cannula 3.5 09/26/23 07:13 09/26/23 03:00 Nasal Cannula 09/26/23 00:00 Nasal Cannula Laboratory Results 09/26/23 06:56 09/26/23 06:56 WBC 8.53 RBC 3.97 L MCV 81.9 MCH 27.0 MCHC 32.9 RDW Std Deviation 41.3 RDW Coeff of Sven 13.9 Plt Count 313 MPV 9.8 Phosphorus 3.9
--- NOTE | 2023-09-26 14:47 | Hospitalist Progress Note ---
Date of Service September 26, 2023 Assessment & Plan (1) Acute hypoxemic respiratory failure: Plan: 61-year-old female with past medically significant for type 2 diabetes, history of diabetic ulcer of left heel, obstructive sleep apnea, nocturnal hypoxemia, pulmonary hypertension, chronic diastolic CHF, history of CAD s/p stent, hypertension, history of CVA, obesity, CKD stage III/IV, history of hyperkalemia, history of hidradenitis suppurativa, history of depression, history of lymphedema, general anxiety disorder, hypothyroidism, history of noncompliance, history of visual disturbance from bilateral macular degeneration who lives at home with her son and [id number] was brought in because of respiratory distress and was found to be have right lower lobe pneumonia. Patient states that since Thursday she is feeling cold symptoms. She is having cough bringing up whitish phlegm. Poor appetite since yesterday. Today she started feeling short of breath. When [id number] came home she was found to be very short of breath. [id number] checked her pulse ox and it was low and brought to the hospital. She was saturating only 76% on room air and she was placed on BiPAP. Currently on BiPAP she saturating okay. She was able to give her history. Denies any headache. Some runny nose. No sore throat. Denies any chest pain. No nausea. No difficulty swallowing. No abdominal pain. Lately having some diarrhea because she restarted metformin. Micturating okay. Currently hemodynamics are okay. Denies any fevers. Acute hypoxemic respiratory failure Likely secondary to acute on chronic diastolic CHF and is complicated by possible pneumonia Currently requiring BiPAP Received Rocephin and azithromycin Has been getting intravenous Zosyn and oral Doxy for now Appreciate pulmonary input and recommendation-continue diuresis, antibiotic may not be needed. No need to have any thoracentesis Medically better and has been requiring 3.5 L to maintain saturation Will discontinue intravenous Zosyn and continue with oral doxycycline Clinically much better Will start PT and OT evaluation Acute on Chronic diastolic CHF Home torsemide has been changed to intravenous Lasix 40 mg twice daily Will monitor intake output Continue with intravenous Lasix as per the nephrology Will monitor PRP and electrolytes Chronic kidney disease History of hyperkalemia Last admission spironolactone and lisinopril was held and was started on Lokelma daily Supposed to follow-up with nephrology Will consult nephrology while in the hospital Restarting of spironolactone and lisinopril as per nephrology Alejandrina has been on hold Appreciate nephrology input and recommendation Creatinine remains elevated at 1.90 History of diabetes Hold Jardiance and metformin Lantus and sliding scale Will monitor Pulmonary hypertension On sildenafil History of CAD s/p stent On metoprolol succinate, Crestor and aspirin Heart rate has been low Will hold beta-leidy as per hold parameters History of CVA Last admission On statin and aspirin Supposed to get Holter Hyperlipidemia On statin History of obstructive sleep apnea Hypertension On amlodipine, hydralazine, metoprolol succinate, torsemide Will monitor Depression and generalized anxiety disorder On Lexapro History of hypothyroidism Not on meds Will check TSH Left apical opacity Supposed to get follow-up CT chest Will get CT chest within the hospital DVT prophylaxis Heparin subcu CODE STATUS Patient was DNR/DNI last admission Patient states she is okay to be full code if there is really chance of recovery and she wants her son to make decision. Admission and Anticipated Discharge Date Admission Date: September 24, 2023 Subjective 09/25/2023 The patient was seen and examined in telemetry unit She has been feeling much better since admission Her cough and respiratory symptoms have been better No fever and or chills 09/26/2023 The patient was seen and examined in telemetry unit She has been feeling much better today and has been requiring up to 3 L to maintain saturation Denies any cough and no shortness of breath at rest Legs remained swollen Review of Systems Review of Systems: All systems reviewed and are unremarkable except as noted below Physical Exam Physical Exam: Lying in bed comfortably Constitutional: well developed, well nourished, + ill appearing and + obese Eyes: PERRL, conjunctivae normal, anicteric sclerae ENMT: external ear and nose normal, oropharynx normal Neck: trachea midline, no thyromegaly Respiratory: no respiratory distress Auscultation: + diminished lung sounds and + crackles (Occasional crackles at the bases) Cardiovascular: Rate/Rhythm: regular rate, regular rhythm and + bradycardic Heart Sounds: normal S1 and normal S2; no murmur Extremities: + edema (Bilateral lymphedema with 1+ edema) Gastrointestinal (Abdomen): Inspection/Auscultation: normal bowel sounds; abdomen not distended Percussion/Palpation: abdomen soft; abdomen nontender Musculoskeletal: No acute arthritis involving any of the joints Neurologic: normal touch/pain/proprioception and moves all extremities; no focal motor deficits Psychiatric: A+Ox3, euthymic affect Lymphatic: no cervical or axillary lymphadenopathy Results & Data Results & Data Vital Signs (Past 12 Hours) Vital Signs Temp Pulse Pulse Resp BP BP Pulse Ox 09/26/23 10:51 36.5 C 59 L 18 146/73 H 93 09/26/23 08:35 36.6 C 64 18 126/69 93 09/26/23 07:45 09/26/23 07:13 59 L 09/26/23 03:00 36.5 C 62 16 136/74 92 O2 Del Method O2 Flow Rate 09/26/23 10:51 Nasal Cannula 09/26/23 08:35 Nasal Cannula 09/26/23 07:45 Nasal Cannula 3.5 09/26/23 07:13 09/26/23 03:00 Nasal Cannula Laboratory Results Short CBC 09/26/23 Range/Units 06:56 WBC 8.53 (4.8-10.8) K/ul Hgb 10.7 L (12.0-16.0) g/dl Hct 32.5 L (37.0-47.0) % Plt Count 313 (130-400) K/uL BMP 09/26/23 06:56 Sodium 139 Potassium 4.2 Chloride 103 Carbon Dioxide 25 BUN 78 H Creatinine 1.90 H D Glucose 123 H Calcium 9.5 Medications Administered Current Inpatient Medications Acetaminophen (Acetaminophen 325 Mg Tab) 650 mg PO Q4H PRN PRN Reason: Pain or Fever Stop: 10/25/23 01:14 Amlodipine Besylate (Amlodipine Besylate 5 Mg Tab) 10 mg PO DAILY ZOE Stop: 10/25/23 08:59 Last Admin: 09/26/23 09:02 Dose: 10 mg Aspirin (Aspirin 325 Mg Ectab) 325 mg PO DAILY ZOE Stop: 10/25/23 08:59 Last Admin: 09/26/23 09:05 Dose: 325 mg Dextrose (Dextrose 50% 50 Ml Syringe) 25 - 50 ml IV UD PRN; Protocol PRN Reason: Hypoglycemia Protocol Stop: 10/25/23 01:14 Escitalopram Oxalate (Escitalopram Oxalate 20 Mg Tab) 20 mg PO DAILY ZOE Stop: 10/25/23 08:59 Last Admin: 04/13/24 09:05 Dose: 20 mg Furosemide (Furosemide 40 Mg/4 Ml Vial) 40 mg IV BID ZOE Stop: 10/25/23 20:59 Last Admin: 09/26/23 08:57 Dose: 40 mg Glucagon (Glucagon For Inj 1 Mg Vial) 1 mg SQ UD PRN; Protocol PRN Reason: Hypoglycemia Protocol Stop: 10/25/23 01:14 Glucose (Glucose 10 Tab/Tube) 4 - 8 tab PO UD PRN; Protocol PRN Reason: Hypoglycemia Treatment Stop: 10/25/23 01:14 Glucose (Glucose 40% Gel 15 Gm Tube) 15 - 30 gm PO UD PRN; Protocol PRN Reason: Hypoglycemia Protocol Stop: 10/25/23 01:14 Heparin Sodium (Porcine) (Heparin Sod 5,000 Unit/0.5 Ml Vial) 5,000 units SQ Q8 ZOE Stop: 10/25/23 05:59 Last Admin: 09/26/23 14:28 Dose: 5,000 units Hydralazine HCl (Hydralazine Tab 50 Mg Tab) 100 mg PO TID ZOE Stop: 10/25/23 08:59 Last Admin: 09/26/23 14:27 Dose: 100 mg Insulin Aspart (Insulin Aspart Per Unit Charge) 0 units SC ACHS ZOE Stop: 10/25/23 07:29 Last Admin: 09/26/23 12:46 Dose: 7 units Insulin Glargine (Lantus Per Unit Charge) 25 units SQ QAM ZOE Stop: 10/25/23 08:59 Last Admin: 09/26/23 08:53 Dose: 25 units Metoprolol Succinate (Metoprolol Succ 50mg Ext Rel Tab) 100 mg PO QAM ZOE Stop: 10/25/23 08:59 Last Admin: 09/26/23 09:02 Dose: 100 mg Miscellaneous (Carbohydrates For Hypoglycemia ) 15 - 30 gm PO UD PRN PRN Reason: Hypoglycemia Protocol Stop: 10/25/23 01:14 Polyethylene Glycol (Polyethylene (Miralax) 17 Gm Pack) 17 gm PO DAILY PRN PRN Reason: Constipation Stop: 10/25/23 01:14 Rosuvastatin Calcium (Rosuvastatin Calcium 20 Mg Tab) 20 mg PO QAM ZOE Stop: 10/25/23 08:59 Last Admin: 09/26/23 09:06 Dose: 20 mg Sildenafil Citrate (Sildenafil Citrate 20 Mg Tablet) 20 mg PO TID ZOE Stop: 10/25/23 08:59 Last Admin: 09/26/23 14:27 Dose: 20 mg
--- NOTE | 2023-09-27 08:04 | Pulmonology Progress Note ---
Date of Service September 27, 2023 Assessment & Plan (1) Acute hypoxemic respiratory failure: (2) CHF (congestive heart failure): (3) Pulmonary hypertension: (4) RADHA (obstructive sleep apnea): (5) Obesity, morbid, BMI 40.0-49.9: Plan IMPRESSION: 63-year-old female with a significant past medical history of morbid obesity, coronary artery disease, hypertension, CHF, untreated RADHA who presents with acute hypoxic respiratory failure secondary to fluid overload. She is improved with diuretics. RECOMMENDATIONS: 1. Acute respiratory failure with hypoxia - Chest x-ray images reviewed and demonstrate bilateral pulmonary edema with trace effusions. She is clinically improved with diuresis. Continue incentive spirometry and out of bed to chair as tolerated. Patient may require supplemental oxygen at discharge. Could consider outpatient PFTs although the patient does not appear particularly motivated to participate in activities which may improve her functional outcome. 2. CHF -diuresis as tolerated per nephrology.. 3. Pulmonary hypertension - As previously diagnosed at an outside facility. Unfortunately, the patient does have contributing factors including poorly controlled hypertension and untreated RADHA. Will need to optimize comorbid conditions including fluid overload, diastolic heart failure, sleep disordered breathing, and potential obstructive lung disease and repeat the echocardiogram in 3 to 6 months. Unclear why or who started the patient on sildenafil. Typically this medication is not used in pulmonary hypertension which is WHO group 2 which I suspect the patient has as well as group 3. Will need to get outpatient records to review. Can likely be discontinued at some point. 4. RADHA - Patient reports previously diagnosed obstructive sleep apnea, but had never received a CPAP device. She again reiterates that she is not going to use CPAP and has no interest in being reevaluated. She understands that this may exacerbate her pulmonary hypertension and potentially decrease her life expectancy. She began expresses understanding with that and states she has no interest in pursuing positive airway pressure. 5. The patient needs PT and OT evaluations to determine whether or not rehab or placement is required. Unclear endpoint at this point in time. Majority of the patient's issues appear to be chronic. Will defer disposition to the patient's primary service. Would be happy to see her back in the pulmonary clinic for follow-up if needed. Feel free to contact us with additional questions or concerns. Pulmonary will sign off at this point time Admission and Anticipated Discharge Date Admission Date: September 24, 2023 Subjective Patient seen and examined. EMR reviewed. Patient is awake alert and eating breakfast. She declined CPAP last night and states she has no interest in pursuing positive airway pressure ventilation. She understands that this may shorten her life expectancy. She states she again does not want to consider noninvasive positive pressure ventilation in future. She has been up and around. She states she did pretty well with therapy. She not complaining of any shortness of breath. Review of Systems 2 Review of Systems: All systems reviewed & are unremarkable except as noted in Subjective Physical Exam 2 Constitutional: WD/WN, vitals as above + morbidly obese Neck: trachea midline, no thyromegaly Respiratory: no respiratory distress, no labored breathing, no cough and not tachypneic Auscultation: + diminished lung sounds; no crackles and no wheezes Cardiovascular: Heart Sounds: normal S1, normal S2 and + murmur E xtremities: + edema Gastrointestinal (Abdomen): normal bowel sounds, soft, nontender, no hepatosplenomegaly Musculoskeletal: Extremities: extremities normal to inspection Skin: no rashes, warm and dry Lymphatic: no cervical lymphadenopathy Results & Data Results & Data Vital Signs (Past 12 Hours) Vital Signs Temp Pulse Pulse Resp BP BP Pulse Ox 09/27/23 07:14 58 L 09/27/23 07:08 36.9 C 60 18 160/77 H 94 09/27/23 07:00 37.2 C 80 18 147/81 H 91 09/27/23 02:36 36.8 C 59 L 18 147/73 H 94 09/26/23 23:18 59 L 09/26/23 22:44 36.8 C 60 18 139/71 94 09/26/23 22:06 O2 Del Method O2 Flow Rate 09/27/23 07:14 09/27/23 07:08 Nasal Cannula 09/27/23 07:00 Room Air 09/27/23 02:36 Nasal Cannula 3 09/26/23 23:18 09/26/23 22:44 Nasal Cannula 2 09/26/23 22:06 Nasal Cannula 2 Laboratory Results 09/26/23 06:56 09/26/23 06:56 PG Care Time/CCT Total # of Minutes Spent Total Time Spent with Patient: Total time spent is greater than 50% in coordination of care (as documented) at patient's floor/unit and/or counseling patient: Coding Level of Care Code 27228 SUB INP/OBS CARE 2MIN Diagnoses Acute hypoxemic respiratory failure J96.01 CHF (congestive heart failure) I50.9 Pulmonary hypertension I27.20 RADHA (obstructive sleep apnea) G47.33 Obesity, morbid, BMI 40.0-49.9 E66.01
[2023-09-27 08:28] LABS: BUN Creatinine Ratio 49.7 (10-20); Calcium 9.6 mg/dl (8.6-10.3); Creatinine Clr Calc Pharmacy 40.2 ml/min; Est GFR (African American) 37.4 ml/min; Est GFR (Non-African American) 32.2 ml/min; Magnesium 2.1 mg/dl (1.7-2.4)
--- NOTE | 2023-09-27 14:14 | Nephrology Progress Note ---
Date of Service September 27, 2023 Assessment & Plan (1) Acute hypoxemic respiratory failure: Plan: Currently has Pulm edema and Causing resp failure. Does need more iv lasix. Continue lasix 40 iv q12 start today. this can be changed to torsemide 60 mg daily tomorrow. From renal standpoint patient can be discharged tomorrow on torsemide 60 mg daily (2) CKD (chronic kidney disease), stage III: Plan: Patient with acute kidney injury likely hemodynamically mediated in setting of diuresis. Creatinine stable at 1.65 today. Will continue diuresis. Her new baseline might be between 1.5 to 2. ASHLY in with peak creat 4. Admission and Anticipated Discharge Date Admission Date: September 24, 2023 Subjective seen for acute kidney injury and volume overload. She feels better today. Breathing has improved. She was able to walk in the room with physical therapy Review of Systems 2 Review of Systems: All other systems were reviewed and negative except as noted in HPI Physical Exam 2 Physical Exam: General exam: Appears comfortable, no acute distress HEENT: Pupils are equal and reactive to light Neck: No JVD, neck is supple trachea is midline Respiratory system: Clear breath sounds bilaterally. Gastrointestinal: Abdomen is soft, non distended, non tender, bowel sounds are present CVS: Regular rate and rhythm. No murmurs, rubs or gallops Musculoskeletal: No joint or muscle tenderness Extremities: Non tender, no edema, peripheral pulses are present Neuro: Oriented, no tremors, no focal neurological deficits Skin: No rashes Results & Data Vital Signs (Past 12 Hours) Vital Signs Temp Pulse Pulse Resp BP BP Pulse Ox 09/27/23 13:56 09/27/23 11:04 36.6 C 58 L 18 123/73 93 09/27/23 09:47 90 09/27/23 08:02 65 09/27/23 08:00 09/27/23 07:14 58 L 09/27/23 07:08 36.9 C 60 18 160/77 H 94 09/27/23 07:00 37.2 C 80 18 147/81 H 91 09/27/23 02:36 36.8 C 59 L 18 147/73 H 94 Pulse Ox Pulse Ox Pulse Ox O2 Del Method O2 Flow Rate O2 Flow Rate O2 Flow Rate 09/27/23 13:56 91 91 87 L 1 0 09/27/23 11:04 Room Air 09/27/23 09:47 Nasal Cannula 1.5 09/27/23 08:02 09/27/23 08:00 Nasal Cannula 2 09/27/23 07:14 09/27/23 07:08 Nasal Cannula 09/27/23 07:00 Room Air 09/27/23 02:36 Nasal Cannula 3 O2 Flow Rate 09/27/23 13:56 0 09/27/23 11:04 09/27/23 09:47 09/27/23 08:02 09/27/23 08:00 09/27/23 07:14 09/27/23 07:08 09/27/23 07:00 09/27/23 02:36 Laboratory Results 09/27/23 06:54
--- NOTE | 2023-09-27 14:18 | Hospitalist Progress Note ---
Date of Service September 27, 2023 Assessment & Plan (1) Acute hypoxemic respiratory failure: Plan: 61-year-old female with past medically significant for type 2 diabetes, history of diabetic ulcer of left heel, obstructive sleep apnea, nocturnal hypoxemia, pulmonary hypertension, chronic diastolic CHF, history of CAD s/p stent, hypertension, history of CVA, obesity, CKD stage III/IV, history of hyperkalemia, history of hidradenitis suppurativa, history of depression, history of lymphedema, general anxiety disorder, hypothyroidism, history of noncompliance, history of visual disturbance from bilateral macular degeneration who lives at home with her son and [id number] was brought in because of respiratory distress and was found to be have right lower lobe pneumonia. Patient states that since Thursday she is feeling cold symptoms. She is having cough bringing up whitish phlegm. Poor appetite since yesterday. Today she started feeling short of breath. When [id number] came home she was found to be very short of breath. [id number] checked her pulse ox and it was low and brought to the hospital. She was saturating only 76% on room air and she was placed on BiPAP. Currently on BiPAP she saturating okay. She was able to give her history. Denies any headache. Some runny nose. No sore throat. Denies any chest pain. No nausea. No difficulty swallowing. No abdominal pain. Lately having some diarrhea because she restarted metformin. Micturating okay. Currently hemodynamics are okay. Denies any fevers. Acute hypoxemic respiratory failure Likely secondary to acute on chronic diastolic CHF and is complicated by possible pneumonia Currently requiring BiPAP Received Rocephin and azithromycin Has been getting intravenous Zosyn and oral Doxy for now Appreciate pulmonary input and recommendation-continue diuresis, antibiotic may not be needed. No need to have any thoracentesis Medically better and has been requiring 3.5 L to maintain saturation Will discontinue intravenous Zosyn and continue with oral doxycycline Clinically much better Will start PT and OT evaluation-recommended rehab/home Will monitor Acute on Chronic diastolic CHF Home torsemide has been changed to intravenous Lasix 40 mg twice daily Will monitor intake output Continue with intravenous Lasix as per the nephrology Has been having enough diuresis and will continue current dose of diuretics Chronic kidney disease History of hyperkalemia Last admission spironolactone and lisinopril was held and was started on Lokelma daily Supposed to follow-up with nephrology Will consult nephrology while in the hospital Restarting of spironolactone and lisinopril as per nephrology Lokelma has been on hold Appreciate nephrology input and recommendation Creatinine remains elevated at 1.90 Creatinine is a little better at 1.65 today-09/27/2023 History of diabetes Hold Jardiance and metformin Lantus and sliding scale Will monitor Pulmonary hypertension On sildenafil History of CAD s/p stent On metoprolol succinate, Crestor and aspirin Heart rate has been low Will hold beta-leidy as per hold parameters History of CVA Last admission On statin and aspirin Supposed to get Holter Hyperlipidemia On statin History of obstructive sleep apnea Hypertension On amlodipine, hydralazine, metoprolol succinate, torsemide Will monitor Depression and generalized anxiety disorder On Lexapro History of hypothyroidism Not on meds Will check TSH Left apical opacity Supposed to get follow-up CT chest Will get CT chest within the hospital DVT prophylaxis Heparin subcu CODE STATUS Patient was DNR/DNI last admission Patient states she is okay to be full code if there is really chance of recovery and she wants her son to make decision. Admission and Anticipated Discharge Date Admission Date: September 24, 2023 Subjective 09/25/2023 The patient was seen and examined in telemetry unit She has been feeling much better since admission Her cough and respiratory symptoms have been better No fever and or chills 09/26/2023 The patient was seen and examined in telemetry unit She has been feeling much better today and has been requiring up to 3 L to maintain saturation Denies any cough and no shortness of breath at rest Legs remained swollen 09/27/2023 The patient was seen and examined in telemetry unit She has been doing much better Out of bed on a chair Saturating normally on room air Will have PT and OT evaluation Review of Systems Review of Systems: All systems reviewed and are unremarkable except as noted below Physical Exam Physical Exam: Lying in bed comfortably Constitutional: well developed, well nourished, + ill appearing and + obese Eyes: PERRL, conjunctivae normal, anicteric sclerae ENMT: external ear and nose normal, oropharynx normal Neck: trachea midline, no thyromegaly Respiratory: no respiratory distress Auscultation: + diminished lung sounds and + crackles (Occasional crackles at the bases) Cardiovascular: Rate/Rhythm: regular rate, regular rhythm and + bradycardic Heart Sounds: normal S1 and normal S2; no murmur Extremities: + edema (Bilateral lymphedema with 1+ edema) Gastrointestinal (Abdomen): Inspection/Auscultation: normal bowel sounds; abdomen not distended Percussion/Palpation: abdomen soft; abdomen nontender Musculoskeletal: No acute arthritis involving any of the joint Neurologic: normal touch/pain/proprioception and moves all extremities; no focal motor deficits Psychiatric: A+Ox3, euthymic affect Lymphatic: no cervical or axillary lymphadenopathy Results & Data Results & Data Vital Signs (Past 12 Hours) Vital Signs Temp Pulse Pulse Resp BP BP Pulse Ox 09/27/23 13:56 09/27/23 11:04 36.6 C 58 L 18 123/73 93 09/27/23 09:47 90 09/27/23 08:02 65 09/27/23 08:00 09/27/23 07:14 58 L 09/27/23 07:08 36.9 C 60 18 160/77 H 94 09/27/23 07:00 37.2 C 80 18 147/81 H 91 09/27/23 02:36 36.8 C 59 L 18 147/73 H 94 Pulse Ox Pulse Ox Pulse Ox O2 Del Method O2 Flow Rate O2 Flow Rate O2 Flow Rate 09/27/23 13:56 91 91 87 L 1 0 09/27/23 11:04 Room Air 09/27/23 09:47 Nasal Cannula 1.5 09/27/23 08:02 09/27/23 08:00 Nasal Cannula 2 09/27/23 07:14 09/27/23 07:08 Nasal Cannula 09/27/23 07:00 Room Air 09/27/23 02:36 Nasal Cannula 3 O2 Flow Rate 09/27/23 13:56 0 09/27/23 11:04 09/27/23 09:47 09/27/23 08:02 09/27/23 08:00 09/27/23 07:14 09/27/23 07:08 09/27/23 07:00 09/27/23 02:36 Laboratory Results BMP 09/27/23 06:54 Sodium 138 Potassium 4.0 Chloride 103 Carbon Dioxide 27 BUN 82 H Creatinine 1.65 H Glucose 120 H Calcium 9.6 Medications Administered Current Inpatient Medications Acetaminophen (Acetaminophen 325 Mg Tab) 650 mg PO Q4H PRN PRN Reason: Pain or Fever Stop: 10/25/23 01:14 Amlodipine Besylate (Amlodipine Besylate 5 Mg Tab) 10 mg PO DAILY ZOE Stop: 10/25/23 08:59 Last Admin: 09/27/23 08:06 Dose: 10 mg Aspirin (Aspirin 325 Mg Ectab) 325 mg PO DAILY ZOE Stop: 10/25/23 08:59 Last Admin: 09/27/23 08:04 Dose: 325 mg Dextrose (Dextrose 50% 50 Ml Syringe) 25 - 50 ml IV UD PRN; Protocol PRN Reason: Hypoglycemia Protocol Stop: 10/25/23 01:14 Escitalopram Oxalate (Escitalopram Oxalate 20 Mg Tab) 20 mg PO DAILY ZOE Stop: 10/25/23 08:59 Last Admin: 09/27/23 08:04 Dose: 20 mg Furosemide (Furosemide 40 Mg/4 Ml Vial) 40 mg IV BID ZOE Stop: 10/25/23 20:59 Last Admin: 09/27/23 08:16 Dose: 40 mg Glucagon (Glucagon For Inj 1 Mg Vial) 1 mg SQ UD PRN; Protocol PRN Reason: Hypoglycemia Protocol Stop: 10/25/23 01:14 Glucose (Glucose 10 Tab/Tube) 4 - 8 tab PO UD PRN; Protocol PRN Reason: Hypoglycemia Treatment Stop: 10/25/23 01:14 Glucose (Glucose 40% Gel 15 Gm Tube) 15 - 30 gm PO UD PRN; Protocol PRN Reason: Hypoglycemia Protocol Stop: 10/25/23 01:14 Heparin Sodium (Porcine) (Heparin Sod 5,000 Unit/0.5 Ml Vial) 5,000 units SQ Q8 ZOE Stop: 10/25/23 05:59 Last Admin: 09/27/23 13:38 Dose: 5,000 units Hydralazine HCl (Hydralazine Tab 50 Mg Tab) 100 mg PO TID ZOE Stop: 10/25/23 08:59 Last Admin: 09/27/23 13:37 Dose: 100 mg Insulin Aspart (Insulin Aspart Per Unit Charge) 0 units SC ACHS ZOE Stop: 10/25/23 07:29 Last Admin: 09/27/23 12:17 Dose: 7 units Insulin Glargine (Lantus Per Unit Charge) 25 units SQ QAM ZOE Stop: 10/25/23 08:59 Last Admin: 09/27/23 08:14 Dose: 25 units Metoprolol Succinate (Metoprolol Succ 50mg Ext Rel Tab) 100 mg PO [facility] Stop: 10/25/23 08:59 Last Admin: 09/27/23 08:05 Dose: 100 mg Miscellaneous (Carbohydrates For Hypoglycemia ) 15 - 30 gm PO UD PRN PRN Reason: Hypoglycemia Protocol Stop: 10/25/23 01:14 Polyethylene Glycol (Polyethylene (Miralax) 17 Gm Pack) 17 gm PO DAILY PRN PRN Reason: Constipation Stop: 10/25/23 01:14 Rosuvastatin Calcium (Rosuvastatin Calcium 20 Mg Tab) 20 mg PO [facility] Stop: 10/25/23 08:59 Last Admin: 09/27/23 08:04 Dose: 20 mg Sildenafil Citrate (Sildenafil Citrate 20 Mg Tablet) 20 mg PO TID [facility] Stop: 10/25/23 08:59 Last Admin: 09/27/23 13:38 Dose: 20 mg
[2023-09-28 08:21] LABS: BUN Creatinine Ratio 44.3 (10-20); Calcium 9.5 mg/dl (8.6-10.3); Creatinine Clr Calc Pharmacy 37.4 ml/min; Est GFR (Non-African American) 28.5 ml/min; Magnesium 2.2 mg/dl (1.7-2.4)
--- NOTE | 2023-09-28 11:28 | Nephrology Progress Note ---
Date of Service September 28, 2023 Assessment & Plan Admission and Anticipated Discharge Date Admission Date: September 24, 2023 Subjective Assessment & Plan (1) Acute hypoxemic respiratory failure: Plan: Currently has Pulm edema and Causing resp failure. Continue lasix 40 iv q12 while inpt this can be changed to torsemide 40 mg AM and 20 mg PM daily for discharge. Creat still not settled so do not restart metformin, jardiance, Leroy/ARB or Aldactone yet. needs to be reintroduced slowly and not all at once--as outpt (2) CKD (chronic kidney disease), stage III: Plan: Patient with acute kidney injury likely hemodynamically mediated vs ATN in setting of Infection. Creat up a bit from 1.6 to 1.8. Will continue diuresis. Her new baseline might be between 1.5 to 2. ASHLY in with peak creat 4. Subjective seen for acute kidney injury and volume overload. She feels better today. Breathing has improved. She was able to walk in the room with physical therapy Review of Systems Review of Systems: All other systems were reviewed and negative except as noted in HPI Physical Exam Physical Exam: General exam: Appears comfortable, no acute distress HEENT: Pupils are equal and reactive to light Neck: No JVD, neck is supple trachea is midline Respiratory system: Clear breath sounds bilaterally. Gastrointestinal: Abdomen is soft, non distended, non tender, bowel sounds are present CVS: Regular rate and rhythm. No murmurs, rubs or gallops Musculoskeletal: No joint or muscle tenderness Extremities: Non tender, no edema, peripheral pulses are present Neuro: Oriented, no tremors, no focal neurological deficits Skin: No rashes Results & Data Vital Signs (Past 12 Hours) Vital Signs Temp Pulse Pulse Resp BP BP Pulse Ox 09/28/23 11:02 36.6 C 60 18 134/62 92 09/28/23 07:53 58 L 09/28/23 07:31 36.8 C 60 17 132/64 94 09/28/23 07:22 09/28/23 06:30 36.6 C 65 20 160/80 H 93 09/28/23 02:46 36.7 C 61 16 150/71 H 93 O2 Del Method O2 Flow Rate 09/28/23 11:02 Nasal Cannula 1 09/28/23 07:53 09/28/23 07:31 Nasal Cannula 1 09/28/23 07:22 Nasal Cannula 1 09/28/23 06:30 Nasal Cannula 1 09/28/23 02:46 Nasal Cannula 1
--- NOTE | 2023-09-28 14:20 | Hospitalist Progress Note ---
Date of Service September 28, 2023 Assessment & Plan (1) Acute hypoxemic respiratory failure: Plan: 61-year-old female with past medically significant for type 2 diabetes, history of diabetic ulcer of left heel, obstructive sleep apnea, nocturnal hypoxemia, pulmonary hypertension, chronic diastolic CHF, history of CAD s/p stent, hypertension, history of CVA, obesity, CKD stage III/IV, history of hyperkalemia, history of hidradenitis suppurativa, history of depression, history of lymphedema, general anxiety disorder, hypothyroidism, history of noncompliance, history of visual disturbance from bilateral macular degeneration who lives at home with her son and [id number] was brought in because of respiratory distress and was found to be have right lower lobe pneumonia. Patient states that since Thursday she is feeling cold symptoms. She is having cough bringing up whitish phlegm. Poor appetite since yesterday. Today she started feeling short of breath. When [id number] came home she was found to be very short of breath. [id number]-[id number] checked her pulse ox and it was low and brought to the hospital. She was saturating only 76% on room air and she was placed on BiPAP. Currently on BiPAP she saturating okay. She was able to give her history. Denies any headache. Some runny nose. No sore throat. Denies any chest pain. No nausea. No difficulty swallowing. No abdominal pain. Lately having some diarrhea because she restarted metformin. Micturating okay. Currently hemodynamics are okay. Denies any fevers. Acute hypoxemic respiratory failure Likely secondary to acute on chronic diastolic CHF and is complicated by possible pneumonia Currently requiring BiPAP Received Rocephin and azithromycin Has been getting intravenous Zosyn and oral Doxy for now Appreciate pulmonary input and recommendation-continue diuresis, antibiotic may not be needed. No need to have any thoracentesis Medically better and has been requiring 3.5 L to maintain saturation Will discontinue intravenous Zosyn and continue with oral doxycycline Clinically much better Will start PT and OT evaluation-recommended rehab/home She has at physical therapy and wants to go home Acute on Chronic diastolic CHF Home torsemide has been changed to intravenous Lasix 40 mg twice daily Will monitor intake output Continue with intravenous Lasix as per the nephrology Has been having enough diuresis and will continue current dose of diuretics No shortness of breath at rest Chronic kidney disease History of hyperkalemia Last admission spironolactone and lisinopril was held and was started on Lokelma daily Supposed to follow-up with nephrology Will consult nephrology while in the hospital Restarting of spironolactone and lisinopril as per nephrology Lokelma has been on hold Appreciate nephrology input and recommendation Creatinine remains elevated at 1.90 Creatinine is a little better at 1.65 today-09/27/2023 Kidney function remained stable and will be discharged home this afternoon History of diabetes Hold Jardiance and metformin Lantus and sliding scale Will monitor Pulmonary hypertension On sildenafil History of CAD s/p stent On metoprolol succinate, Crestor and aspirin Heart rate has been low Will hold beta-leidy as per hold parameters History of CVA Last admission On statin and aspirin Supposed to get Holter Hyperlipidemia On statin History of obstructive sleep apnea Hypertension On amlodipine, hydralazine, metoprolol succinate, torsemide Will monitor Depression and generalized anxiety disorder On Lexapro History of hypothyroidism Not on meds Will check TSH Left apical opacity Supposed to get follow-up CT chest Will get CT chest within the hospital DVT prophylaxis Heparin subcu CODE STATUS Patient was DNR/DNI last admission Patient states she is okay to be full code if there is really chance of recovery and she wants her son to make decision. She was discharged home this afternoon in a stable medical condition Admission and Anticipated Discharge Date Admission Date: September 24, 2023 Subjective 09/25/2023 The patient was seen and examined in telemetry unit She has been feeling much better since admission Her cough and respiratory symptoms have been better No fever and or chills 09/26/2023 The patient was seen and examined in telemetry unit She has been feeling much better today and has been requiring up to 3 L to maintain saturation Denies any cough and no shortness of breath at rest Legs remained swollen 09/27/2023 The patient was seen and examined in telemetry unit She has been doing much better Out of bed on a chair Saturating normally on room air Will have PT and OT evaluation 09/28/2023 The patient was seen and examined in the telemetry unit She has been feeling much better Has been feeling much better wants to go home Review of Systems Review of Systems: All systems reviewed and are unremarkable except as noted below Physical Exam Physical Exam: Lying in bed comfortably Constitutional: well developed, well nourished, + ill appearing and + obese Eyes: PERRL, conjunctivae normal, anicteric sclerae ENMT: external ear and nose normal, oropharynx normal Neck: trachea midline, no thyromegaly Respiratory: no respiratory distress Auscultation: + diminished lung sounds and + crackles (Occasional crackles at the bases) Cardiovascular: Rate/Rhythm: regular rate, regular rhythm and + bradycardic Heart Sounds: normal S1 and normal S2; no murmur Extremities: + edema (Bilateral lymphedema with 1+ edema) Gastrointestinal (Abdomen): Inspection/Auscultation: normal bowel sounds; abdomen not distended Percussion/Palpation: abdomen soft; abdomen nontender Neurologic: normal touch/pain/proprioception and moves all extremities; no focal motor deficits Psychiatric: A+Ox3, euthymic affect Lymphatic: no cervical or axillary lymphadenopathy Results & Data Results & Data Vital Signs (Past 12 Hours) Vital Signs Temp Pulse Pulse Pulse Pulse Pulse Resp 09/28/23 14:14 36.6 C 60 18 09/28/23 11:44 70 68 60 09/28/23 11:02 36.6 C 60 18 09/28/23 07:53 58 L 09/28/23 07:31 36.8 C 60 17 09/28/23 07:22 09/28/23 06:30 36.6 C 65 20 09/28/23 02:46 36.7 C 61 16 Resp Resp Resp BP BP Pulse Ox Pulse Ox 09/28/23 14:14 134/62 150/71 H 92 09/28/23 11:44 24 22 20 91 09/28/23 11:02 134/62 92 09/28/23 07:53 09/28/23 07:31 132/64 94 09/28/23 07:22 09/28/23 06:30 160/80 H 93 09/28/23 02:46 150/71 H 93 Pulse Ox Pulse Ox O2 Del Method O2 Flow Rate O2 Flow Rate 09/28/23 14:14 09/28/23 11:44 86 L 91 1 09/28/23 11:02 Nasal Cannula 1 09/28/23 07:53 09/28/23 07:31 Nasal Cannula 1 09/28/23 07:22 Nasal Cannula 1 09/28/23 06:30 Nasal Cannula 1 09/28/23 02:46 Nasal Cannula 1
--- NOTE | 2023-09-29 07:13 | Discharge Summary ---
Date of Service September 28, 2023 Admission HPI Per Admitting Provider 61-year-old female with past medical history significant for type 2 diabetes, history of diabetic ulcer of left heel, obstructive sleep apnea, nocturnal hypoxemia, pulmonary hypertension, chronic diastolic CHF, history of CAD s/p stent, hypertension, history of CVA, obesity, CKD stage III/IV, history of hyperkalemia, history of hidradenitis suppurativa, history of depression, history of lymphedema, general anxiety disorder, hypothyroidism, history of noncompliance, history of visual disturbance from bilateral macular degeneration who lives at home with her son and wrsdewaj-id-kau was brought in because of respiratory distress and was found to be have right lower lobe pneumonia. Patient states that since Thursday she is feeling cold symptoms. She is having cough bringing up whitish phlegm. Poor appetite since yesterday. Today she started feeling short of breath. When mbqfunwx-[id number] came home she was found to be very short of breath. Frmecapq-ja-ool checked her pulse ox and it was low and brought to the hospital. She was saturating only 76% on room air and she was placed on BiPAP. Currently on BiPAP she saturating okay. She was able to give her history. Denies any headache. Some runny nose. No sore throat. Denies any chest pain. No nausea. No difficulty swallowing. No abdominal pain. Lately having some diarrhea because she restarted metformin. Micturating okay. Currently hemodynamics are okay. Denies any fevers. Past medical history. As mentioned above Past surgical history. For home with surgery. Tongue biopsy. Social history. Currently living with son and ryekjxvm-nv-mll. No smoking. No alcohol. No drug use. Family history. Mother had thyroid cancer. Stroke. Son had coarctation of the aorta. Father had heart attack. Admission Exam Per Admitting Provider Physical Exam: General- Not in distress Head- atraumatic Eyes- PERRL. ENT- oropharynx clear Neck- supple, no JVD. Lungs- clear to auscultation no wheezing mild bibasilar crackles more on right side Heart- regular rate and rhythm; no murmur, no gallop. Abdomen- normal bowel sounds, soft, nontender, no distension Extremities- chronic lymphedema seen. no erythema seen Neuro- alert, oriented PERRL, no facial palsy; no dysarthria; obeys simpe commands Principal Diagnosis Acute on chronic diastolic heart failure, possible pneumonia, chronic kidney disease Discharge Exam Lying in bed comfortably Constitutional well developed, well nourished, + ill appearing and + obese Eyes PERRL, conjunctivae normal, anicteric sclerae ENMT external ear and nose normal, oropharynx normal Neck trachea midline, no thyromegaly Respiratory no respiratory distress Auscultation: + diminished lung sounds and + crackles (Occasional crackles at the bases) Cardiovascular Rate/Rhythm: regular rate, regular rhythm and + bradycardic Heart Sounds: normal S1 and normal S2; no murmur Extremities: + edema (Bilateral lymphedema with 1+ edema) Gastrointestinal (Abdomen) Inspection/Auscultation: normal bowel sounds; abdomen not distended Percussion/Palpation: abdomen soft; abdomen nontender Neurologic normal touch/pain/proprioception and moves all extremities; no focal motor deficits Psychiatric A+Ox3, euthymic affect Lymphatic no cervical or axillary lymphadenopathy Discharge Data Allergies Allergy/AdvReac Type Severity Reaction Status Date / Time No Known Allergies Allergy Verified 09/24/23 20:25 Consultations 09/24/23 20:22 ED Decision to Admit Stat 09/25/23 08:00 Consult Nephrology Routine Consult Pulmonology Routine Ordered Studies 09/25/23 01:15 CT chest diagnostic wo con Routine Hospital Course (1) Acute hypoxemic respiratory failure: 61-year-old female with past medically significant for type 2 diabetes, history of diabetic ulcer of left heel, obstructive sleep apnea, nocturnal hypoxemia, pulmonary hypertension, chronic diastolic CHF, history of CAD s/p stent, hypertension, history of CVA, obesity, CKD stage III/IV, history of hyperkalemia, history of hidradenitis suppurativa, history of depression, history of lymphedema, general anxiety disorder, hypothyroidism, history of noncompliance, history of visual disturbance from bilateral macular degeneration who lives at home with her son and wpabmjab-[id number]-jto was brought in because of respiratory distress and was found to be have right lower lobe pneumonia. Patient states that since Thursday she is feeling cold symptoms. She is having cough bringing up whitish phlegm. Poor appetite since yesterday. Today she started feeling short of breath. When ilumoklq-bc-ofj came home she was found to be very short of breath. Pjrieaea-sg-cfv checked her pulse ox and it was low and brought to the hospital. She was saturating only 76% on room air and she was placed on BiPAP. Currently on BiPAP she saturating okay. She was able to give her history. Denies any headache. Some runny nose. No sore throat. Denies any chest pain. No nausea. No difficulty swallowing. No abdominal pain. Lately having some diarrhea because she restarted metformin. Micturating okay. Currently hemodynamics are okay. Denies any fevers. Acute hypoxemic respiratory failure Likely secondary to acute on chronic diastolic CHF and is complicated by possible pneumonia Currently requiring BiPAP Received Rocephin and azithromycin Has been getting intravenous Zosyn and oral Doxy for now Appreciate pulmonary input and recommendation-continue diuresis, antibiotic may not be needed. No need to have any thoracentesis Medically better and has been requiring 3.5 L to maintain saturation Will discontinue intravenous Zosyn and continue with oral doxycycline Clinically much better Will start PT and OT evaluation-recommended rehab/home She has at physical therapy and wants to go home Acute on Chronic diastolic CHF Home torsemide has been changed to intravenous Lasix 40 mg twice daily Will monitor intake output Continue with intravenous Lasix as per the nephrology Has been having enough diuresis and will continue current dose of diuretics No shortness of breath at rest Chronic kidney disease History of hyperkalemia Last admission spironolactone and lisinopril was held and was started on Lokelma daily Supposed to follow-up with nephrology Will consult nephrology while in the hospital Restarting of spironolactone and lisinopril as per nephrology Lokelma has been on hold Appreciate nephrology input and recommendation Creatinine remains elevated at 1.90 Creatinine is a little better at 1.65 today-09/27/2023 Kidney function remained stable and will be discharged home this afternoon History of diabetes Hold Jardiance and metformin Lantus and sliding scale Will monitor Pulmonary hypertension On sildenafil History of CAD s/p stent On metoprolol succinate, Crestor and aspirin Heart rate has been low Will hold beta-leidy as per hold parameters History of CVA Last admission On statin and aspirin Supposed to get Holter Hyperlipidemia On statin History of obstructive sleep apnea Hypertension On amlodipine, hydralazine, metoprolol succinate, torsemide Will monitor Depression and generalized anxiety disorder On Lexapro History of hypothyroidism Not on meds Will check TSH Left apical opacity Supposed to get follow-up CT chest Will get CT chest within the hospital DVT prophylaxis Heparin subcu CODE STATUS Patient was DNR/DNI last admission Patient states she is okay to be full code if there is really chance of recovery and she wants her son to make decision. She was discharged home this afternoon in a stable medical condition Total Time Total Time Spent Total Time Spent (In Minutes): 45 minutes Discharge Plan Discharge Items Patient Disposition: Home - Home Health Services Reason For Visit: ACUTE HYPOXEMIA RESP FAILURE, PNEUMONIA Discharge Diagnosis: Acute on chronic diastolic heart failure, possible pneumonia, chronic kidney disease Activity: Resume your previous activity Non-emergency contact: Primary Care Provider Call non-emergency contact if: you have any medication questions and your symptoms worsen Follow-up/Referrals: Bridgette Celis MD [Primary Care Provider] - (Date & Time 10/05/2023 10:20 AM Provider Veronique Webb MD Department General Internal Medicine [facility] ) Eduardo Christine MD [Outside Practitioners] - (Date & Time 10/28/2023 1:00 PM Provider Eduardo Christine MD Department Pulmonary Medicine, [facility] ) Diet: Carb Consistent or DM2 and Heart Healthy Diet Texture: Easy to Chew Addtl Attending Provider Instructions: Please take precautions to avoid falls You need to take oxygen at a rate of 2 L/min via nasal cannula with ambulation Continue medications as advised Your torsemide has been changed to 40 mg in the morning and 20 in the afternoon It will not restart metformin, Jardiance, spironolactone or lisinopril until you are told to restart Please keep follow-up appointments with the healthcare provider Continue CPAP Pending Studies at Discharge: No Stand-Alone Forms: My PaperG, Smoking Cessation Medications and DC Order Prescriptions: Continued metoprolol succinate 100 mg Tablet Extended Release 24 Hr 100 mg PO QAM amlodipine 10 mg Tablet 10 mg PO DAILY hydralazine 100 mg Tablet 100 mg PO TID escitalopram oxalate 20 mg Tablet 20 mg PO DAILY sildenafil (pulm.hypertension) 20 mg Tablet 20 mg PO TID rosuvastatin [Crestor] 20 mg Tablet 20 mg PO QAM Qty: 0 0RF insulin glargine [Lantus Solostar U-100 Insulin] 100 unit/mL (3 mL) insulin pen 25 unit SUBCUT QAM aspirin 325 mg Tablet 325 mg PO DAILY Changed torsemide 20 mg tablet 20 mg PO BID Qty: 90 0RF Rx Instructions: Take 40 mg in the morning and 20 mg in the afternoon. Home medication Discontinued metformin 500 mg Tablet 500 mg PO BID spironolactone 25 mg Tablet 25 mg PO DAILY Hold Instructions: Until further recommendations by your aniline press worker lisinopril 2.5 mg tablet 10 mg PO DAILY Hold Instructions: Until further recommendations by your aniline press worker Rx Instructions: 4 TABLETS-PER [facility], PER EXT MED HX--2.5 MG DAILY Jardiance 25 mg Tablet 25 mg PO QAM Lokelma 10 gram powder in packet 10 g PO QAM Discharge Orders: Discharge Order (Routine); Ordered 09/28/23 Ordered By: Noelle Hernandez Discharge Order- CHF (Routine); Ordered 09/28/23 Ordered By: Noelle Cheney/Other Patient Handouts: High Blood Sugar (Hyperglycemia), Hypoglycemia (Low Blood Sugar), Managing Type 2 Diabetes Admission Data Admit Date/Time: 09/24/23 23:59 Attending Provider: Noelle Hernandez Admit Provider: Hao Mccall Primary Care Provider: Bridgette Celis Other Providers: Hao Mccall; Kelin Gregory; Elizabeth Bain Other Interventions: Discharge Summary Assessment (RN) Last Done: 09/28/23 14:14
== END 2023-09-28 15:35 | disposition home health service (06) | DRG 193 ==
LOC: ED 18:15 → 2S 23:59

== ENCOUNTER 2023-11-18 04:34 | Inpatient (IN) ==
--- NOTE | 2023-11-18 05:24 | Emergency Department Note ---
Impression & Plan Acute hypoxemic respiratory failure, ASHLY (acute kidney injury), Diabetes mellitus, type II, Chronic diastolic CHF (congestive heart failure) ED Provider Note CHIEF COMPLAINT: Shortness of breath x 4 days HISTORY OF PRESENT ILLNESS: This 63-year-old female patient presents to the emergency department via ambulance for evaluation of 4-day history of shortness of breath. The patient reports similar symptoms in the past associated with pneumonia. The patient denies any recent fever or chills. She states she has had a slight cough. She states earlier in the evening, she had a hot flash which felt similar nature to an [place] she had about 2 to 3 years ago which required 3 stent placements. This was in [place]. The patient states she does have a "lung lesion". She states this is being worked up and she had a PET scan yesterday. She does follow with pulmonology. The patient denies any hemoptysis. No leg pain or swelling. She denies any current chest or abdominal pain. No history of DVT or PE. REVIEW OF SYSTEMS: A 10 system review of systems was performed with positives and pertinent negatives listed in the history of present illness. All other systems were reviewed and are negative. ALLERGIES: NKDA PHYSICAL EXAM: VITALS: Vitals are noted on the nurse's note and reviewed by myself. Patient is hypoxic at 78% on room air. O2 saturation 90% on 15 L via nonrebreather. GENERAL: This is a 63-year-old female, in no acute distress, nondiaphoretic, well-developed well-nourished. SKIN: The skin was without rashes, erythema, edema, or bruising. There is no tenting of the skin. Capillary refill less than 2 seconds. HEAD: Normocephalic atraumatic. EARS: External auditory canals clear, tympanic membranes pearly grant without erythema or effusion bilaterally. No hemotympanum. Negative ardon sign EYES: Pupils equal round and reactive to light and accommodation. Conjunctivae without injection, sclerae without icterus. Extraocular movements intact. NOSE: Patent, turbinates without inflammation or discharge. No sinus tenderness. MOUTH: Mucous membranes moist. Tonsils are not enlarged. Pharynx without erythema or exudate. Uvula midline. Airway patent. Tongue does not deviate. NECK: Supple without nuchal rigidity. No lymphadenopathy. Cervical spine is nontender. No JVD. HEART: Regular rate and rhythm without murmurs gallops or rubs. LUNGS: Diminished breath sounds in the bilateral lower lung britt. The upper lung britt bilaterally are clear to auscultation. No wheezes, rales or rhonchi. + retractions and accessory muscle use. ABDOMEN: No tenderness to palpation. Active bowel sounds in all 4 quadrants. MUSCULOSKELETAL: No muscle atrophy, erythema, or edema noted. Full range of motion without joint tenderness in all extremities. No tenderness to palpation. Normal gait. Strength 5/5 throughout. NEURO: Patient was alert and oriented to person place and time. No focal neurological deficits. An order was placed for continuous cardiac technician. The monitor showed a NSR at a ventricular rate of 60 bpm, per my interpretation. EKG was reviewed by myself and found to be normal sinus rhythm at a rate of 60 beats per minute and per my interpretation reveals no ST elevation or depression, no T-wave inversion and when compared to previous EKG of 09/24/2023 is without significant change. CXR, per my interpretation: Bilateral pleural effusions with right middle lobe consolidation EMERGENCY DEPARTMENT COURSE: Patient was seen and evaluated as above. The patient has significant increased work of breathing. She presents with shortness of breath and mild cough for about 4 days. O2 saturation is 78% on room air. Patient was placed on 15 L via nonrebreather and O2 saturation did increase to 90%, but the patient continued to have significant work of breathing. IV access was obtained, labs were drawn. The patient was placed on BiPAP. Labs reviewed. There is leukocytosis of 12,000 with shift. Anemia with hemoglobin of 10.9, hematocrit of 35.5. No thrombocytopenia. Coags normal. VBG pH is 7.27. Patient is hyperkalemic with potassium 5.4. Sodium 139. Anion gap is 7. BUN is 89. Concern for ASHLY with creatinine elevated 2.04. Glucose elevated at 196. Magnesium elevated at 2.9. BNP is 242. Troponin 6.2. Respiratory bio fire testing is negative. The patient was reassessed after being placed on Bipap. Respiratory effort and breath sounds have improved. I discussed case with my attending physician Patient was started on IV Zosyn and PO Doxycycline, as per last hospitalization for similar symptoms. I discussed the [facility] He requested ABG be drawn since the patient has been placed on Bipap. Requests that the patient be admitted under Dr. Casas due to shift change. The patient was again reassessed. She is feeling much better and appears to be resting comfortably at this time. I attest that I have personally reviewed the patient medication list. I attest that I have reviewed the patient's blood pressure and it was found to be elevated. GCS: 15 In the evaluation and treatment of this patient the following differential diagnoses were entertained: Reactive airway disease, pneumonia, pneumothorax, COPD, CHF, infections, cardiac ischemia, pulmonary embolism, musculoskeletal, gastrointestinal, as well as other pathologies. I have personally spent greater than 32 minutes of critical care time in the direct management of this patient to assess and manage high likelihood of life- threatening respiratory distress. This includes bedside care, interpretation of diagnostic studies, and testing, discussion with consultants, patient, and family members, documentation time, and other required patient management activities. This 32 minutes is in excess of all separately billable procedures. The chart was completed utilizing [employer] Speech voice recognition software. Grammatical errors, random word insertions, pronoun errors, and incomplete sentences are an occasional consequence of this system due to software limitations, ambient noise, and hardware issues. Any formal questions or concerns about the content, text, or information contained within the body of this dictation should be directly addressed to the provider for clarification. Past Med/Surg History Problem List (Updated 11/18/23 @ 06:47 by Liz Price PA-C) RADHA (obstructive sleep apnea) CHF (congestive heart failure) Hypoxia (Acute) Acute hypoxemic respiratory failure (Acute) ASHLY (acute kidney injury) (Acute) CVA (cerebral vascular accident) Obesity, morbid, BMI 40.0-49.9 Recent URI Foot ulcer, left Elevated troponin Hypertensive urgency Stroke-like symptoms CKD (chronic kidney disease), stage III Chronic diastolic CHF (congestive heart failure) (Acute) Anxiety and depression Pulmonary hypertension Hypothyroidism CAD (coronary artery disease) Diabetes mellitus, type II (Acute) HLD (hyperlipidemia) Hypertension (Acute) Hyperglycemia (Acute) Non-ST elevation [place] (NSTEMI) (Acute) Weakness (Acute) Surgical History History of cardiac cath s/p stents Social History Smoking Status: Never smoker Do You Dip or Chew Tobacco: No; Hx Alcohol Use: No Hx Substance Use: No Preferred Language: Divehi Communication Ability: Effective 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 Beliefs That Will Affect Care: None Current Living Situation: Family Current Living Situation Comment: lives with son Feels Safe at Home: Yes Gender Identity: Female Assistive Devices: Bedside Commode and Walker Allergies Allergies Allergy/AdvReac Type Severity Reaction Status Date / Time No Known Allergies Allergy Verified 09/24/23 20:25 Home Meds Home Medications Medication Instructions Recorded Confirmed amlodipine 10 mg tablet 10 mg PO DAILY 07/29/23 09/24/23 escitalopram oxalate 20 mg tablet 20 mg PO DAILY 07/29/23 09/24/23 hydralazine 100 mg tablet 100 mg PO TID 07/29/23 09/24/23 metoprolol succinate 100 mg 100 mg PO QAM 07/29/23 09/24/23 tablet,extended release 24 hr sildenafil (pulm.hypertension) 20 20 mg PO TID 07/29/23 09/24/23 mg tablet insulin glargine 100 unit/mL (3 25 unit subcut QAM 09/24/23 09/24/23 mL) subcutaneous pen (Lantus Solostar U-100 Insulin) aspirin 325 mg tablet 325 mg PO DAILY 09/25/23 09/25/23 Previous Rx's Medication Instructions Recorded rosuvastatin 20 mg tablet (Crestor) 20 mg PO QAM #0 tabs 08/07/23 torsemide 20 mg tablet 20 mg PO BID #90 tabs 09/28/23 Results & Data (ED) Vital Signs Vital Signs - 24 hr 11/18/23 04:37 11/18/23 04:37 11/18/23 04:45 Temperature 36.7 C Temperature Source Oral Pulse Rate 61 60 Pulse Rate [Apical] Respiratory Rate 24 Respiratory Effort / Characteristics Labored Respiratory Depth Normal Respiratory Pattern Regular Blood Pressure 140/91 Blood Pressure [Right Arm] Blood Pressure Mean 107 Blood Pressure Mean [Right Arm] Pulse Oximetry 78 L 78 L Oxygen Delivery Method Room Air Room Air Oxygen Flow Rate 0 Fraction of Inspired Oxygen Sepsis Recent Fever Within 48 Hours No Sepsis New/Unexplained Change in Mental Status N/A Sepsis Action Taken by Nursing No Action Required Oxygen Flow Rate - Titration 15 Pulse Oximetry Post Tiitration 90 11/18/23 04:48 11/18/23 05:10 11/18/23 05:15 Temperature Temperature Source Pulse Rate 62 60 Pulse Rate [Apical] Respiratory Rate 24 22 Respiratory Effort / Characteristics Labored Non-Labored Spontaneous Respiratory Depth Normal Normal Respiratory Pattern Regular Regular Blood Pressure Blood Pressure [Right Arm] Blood Pressure Mean Blood Pressure Mean [Right Arm] Pulse Oximetry 91 92 Oxygen Delivery Method Non-rebreather Oxygen Flow Rate 15 Fraction of Inspired Oxygen 60 Sepsis Recent Fever Within 48 Hours Sepsis New/Unexplained Change in Mental Status Sepsis Action Taken by Nursing Oxygen Flow Rate - Titration Pulse Oximetry Post Tiitration 11/18/23 05:36 11/18/23 06:00 Temperature Temperature Source Pulse Rate Pulse Rate [Apical] 62 60 Respiratory Rate 20 18 Respiratory Effort / Characteristics Non-Labored Non-Labored Respiratory Depth Normal Normal Respiratory Pattern Regular Regular Blood Pressure Blood Pressure [Right Arm] 140/91 Blood Pressure Mean Blood Pressure Mean [Right Arm] 107 Pulse Oximetry 91 91 Oxygen Delivery Method BiPAP BiPAP Oxygen Flow Rate Fraction of Inspired Oxygen Sepsis Recent Fever Within 48 Hours Sepsis New/Unexplained Change in Mental Status Sepsis Action Taken by Nursing Oxygen Flow Rate - Titration Pulse Oximetry Post Tiitration Laboratory Data 11/18/23 05:35 11/18/23 05:35 Lab Results 11/18/23 11/18/23 Range/Units 05:14 05:35 WBC 12.22 H (4.8-10.8) K/ul RBC 4.19 L (4.20-5.40) M/uL Hgb 10.9 L (12.0-16.0) g/dl Hct 35.5 L (37.0-47.0) % MCV 84.7 (80.0-100.0) fL MCH 26.0 (25.0-34.0) pg MCHC 30.7 L (32.0-36.0) g/dL RDW Std Deviation 45.2 (36.4-46.3) fL RDW Coeff of Sven 14.6 H (11.5-14.5) % Plt Count 253 (130-400) K/uL MPV 9.2 L (9.4-12.4) fL Immature Gran % (Auto) 0.4 % Neut % (Auto) 87.3 % Lymph % (Auto) 5.3 % Reagan % (Auto) 5.3 % Eos % (Auto) 1.2 % Baso % (Auto) 0.5 % Neut # (Auto) 10.66 H (1.40-6.50) K/uL Lymph # (Auto) 0.65 L (1.20-3.40) K/uL Reagan # (Auto) 0.65 H (0.11-0.59) K/uL Eos # (Auto) 0.15 (0.00-0.50) K/uL Baso # (Auto) 0.06 (0.00-0.20) K/uL Immature Gran # (Auto) 0.05 (0.01-0.20) K/uL PT 10.9 (9.0-12.0) Seconds INR 1.0 (0.9-1.1) APTT 22 (21-31) Seconds PTT Ratio 0.8 VBG pH 7.27 L (7.36-7.41) VBG pCO2 52 H (38-50) mmHg VBG pO2 36 mmHg VBG HCO3 24 mmol/L VBG O2 Saturation 65.4 % VBG Base Excess -3.6 mEq/L Sodium 139 (136-145) mmol/L Potassium 5.4 H (3.5-5.1) mmol/L Chloride 109 H (98-107) mmol/L Carbon Dioxide 23 (21-32) mmol/L Anion Gap 7 (3-11) BUN 89 H (6-23) mg/dl Creatinine 2.04 H (0.6-1.2) mg/dl Est Cr Clr Drug Dosing 32.2 ml/min Est GFR ( Amer) 28.9 ml/min Est GFR (Non-Af Amer) 24.9 ml/min BUN/Creatinine Ratio 43.6 H (10-20) Glucose 196 H (70-99(Fasting)) mg/dl Lactate 0.6 (0.4-2.0) mmol/L Calcium 9.8 (8.6-10.3) mg/dl Magnesium 2.9 H (1.7-2.4) mg/dl Total Bilirubin 0.7 (0.2-1.0) mg/dl AST 13 (13-39) U/L ALT 20 (7-52) U/L Alkaline Phosphatase 130 H (34-104) U/L Troponin I High Sens 6.2 (0-14) pg/ml B-Natriuretic Peptide 242 H (0-100) pg/ml Total Protein 8.0 (6.0-8.3) gm/dl Albumin 3.7 (3.4-5.0) gm/dl Globulin 4.3 H (2.5-4.0) gm/dl Albumin/Globulin Ratio 0.9 (0.9-2) Adenovirus (PCR) Not Detected (NotDetected) B. pertussis DNA (PCR) Not Detected (NotDetected) B.parapertussis DNA PCR Not Detected (NotDetected) C. pneumoniae DNA (PCR) Not Detected (NotDetected) Coronavirus OC43 (PCR) Not Detected (NotDetected) Coronavirus HKU1 (PCR) Not Detected (NotDetected) Coronavirus 229E (PCR) Not Detected (NotDetected) SARS-CoV-2 (PCR) Not Detected (NotDetected) Coronavirus NL63 (PCR) Not Detected (NotDetected) Human Metapneumovir PCR Not Detected (NotDetected) Influenza Type A (PCR) Not Detected (NotDetected) Influenza Type B (PCR) Not Detected (NotDetected) M. pneumoniae (PCR) Not Detected (NotDetected) Parainfluenza 1 (PCR) Not Detected (NotDetected) Parainfluenza 2 (PCR) Not Detected (NotDetected) Parainfluenza 3 (PCR) Not Detected (NotDetected) Parainfluenza 4 (PCR) Not Detected (NotDetected) RSV (PCR) Not Detected (NotDetected) Entero/Rhino (PCR) Not Detected (NotDetected) Administered Medications Discontinued Medications Piperacillin Sod/Tazobactam Sod (Zosyn) 4.5 gm in 120 mls @ 240 mls/hr IV NOW ONE Stop: 11/18/23 07:02 Last Admin: 11/18/23 06:44 Dose: 240 mls/hr Documented By: LAUREL Discharge Plan Visit Data Chief Complaint: Shortness of Breath/Dyspnea Stated Complaint: SHORTNESS OF BREATH ED Provider: Yoli Osborne ED Midlevel Provider: Liz Price Discharge Problem: Acute hypoxemic respiratory failure, ASHLY (acute kidney injury), Diabetes mellitus, type II, Chronic diastolic CHF (congestive heart failure) Patient Disposition: Admitted As Inpatient Forms Stand Alone Forms: My [facility] Prescriptions Prescriptions: No Action metoprolol succinate 100 mg Tablet Extended Release 24 Hr 100 mg PO QAM amlodipine 10 mg Tablet 10 mg PO DAILY hydralazine 100 mg Tablet 100 mg PO TID escitalopram oxalate 20 mg Tablet 20 mg PO DAILY sildenafil (pulm.hypertension) 20 mg Tablet 20 mg PO TID rosuvastatin [Crestor] 20 mg Tablet 20 mg PO QAM Qty: 0 0RF insulin glargine [Lantus Solostar U-100 Insulin] 100 unit/mL (3 mL) insulin pen 25 unit SUBCUT QAM aspirin 325 mg Tablet 325 mg PO DAILY torsemide 20 mg tablet 20 mg PO BID Qty: 90 0RF Rx Instructions: Take 40 mg in the morning and 20 mg in the afternoon. Home medication Referrals Referrals: Bridgette Celis MD [Primary Care Provider] -
[2023-11-18 05:50] LABS: Base Excess VBG -3.6 mEq/L; HCO3 VBG 24 mmol/L; Oxygen Saturation VBG 65.4 %; PCO2 VBG 52 mmHg (38-50); PO2 VBG 36 mmHg; pH VBG 7.27 (7.36-7.41)
[2023-11-18 06:11] LABS: Basophils # (auto) 0.06 K/uL (0.00-0.20); Basophils % (auto) 0.5 %; Eosinophils # (auto) 0.15 K/uL (0.00-0.50); Eosinophils % (auto) 1.2 %; Hematocrit (blood only) 35.5 % (37.0-47.0); Hemoglobin 10.9 g/dl (12.0-16.0); Immature Granulocytes # (auto) 0.05 K/uL (0.01-0.20); Immature Granulocytes % (auto) 0.4 %; Lymphocytes # (auto) 0.65 K/uL (1.20-3.40); Lymphocytes % (auto) 5.3 %; Mean Corpuscular Hgb Conc 30.7 g/dL (32.0-36.0); Mean Corpuscular Volume 84.7 fL (80.0-100.0); Mean Platelet Volume 9.2 fL (9.4-12.4); Monocytes # (auto) 0.65 K/uL (0.11-0.59); Monocytes % (auto) 5.3 %; Neutrophils # (auto) 10.66 K/uL (1.40-6.50); Neutrophils % (auto) 87.3 %; Platelet Count 253 K/uL (130-400); RDW Coefficient of Variation 14.6 % (11.5-14.5); RDW Standard Deviation 45.2 fL (36.4-46.3); Red Blood Count 4.19 M/uL (4.20-5.40); White Blood Count 12.22 K/ul (4.8-10.8)
[2023-11-18 06:14] LABS: Albumin Globulin Ratio 0.9 (0.9-2); Albumin Level 3.7 gm/dl (3.4-5.0); BUN Creatinine Ratio 43.6 (10-20); Bilirubin,Total 0.7 mg/dl (0.2-1.0); Calcium 9.8 mg/dl (8.6-10.3); Creatinine Clr Calc Pharmacy 32.2 ml/min; Est GFR (African American) 28.9 ml/min; Est GFR (Non-African American) 24.9 ml/min; Globulin 4.3 gm/dl (2.5-4.0); Magnesium 2.9 mg/dl (1.7-2.4); Potassium 5.4 mmol/L (3.5-5.1)
[2023-11-18 06:15] LABS: Adenovirus PCR Not Detected (NotDetected); Bordetella parapertussis PCR Not Detected (NotDetected); Bordetella pertussis PCR Not Detected (NotDetected); Chlamydia pneumoniae PCR Not Detected (NotDetected); Coronavirus 229E PCR Not Detected (NotDetected); Coronavirus CoV-2 (COVID19)PCR Not Detected (NotDetected); Coronavirus HKU1 PCR Not Detected (NotDetected); Coronavirus NL63 PCR Not Detected (NotDetected); Coronavirus OC43PCR Not Detected (NotDetected); Human Metapneumovirus PCR Not Detected (NotDetected); Influenza A PCR Not Detected (NotDetected); Influenza B PCR Not Detected (NotDetected); Mycoplasma pneumoniae PCR Not Detected (NotDetected); Parainfluenza Virus 1 PCR Not Detected (NotDetected); Parainfluenza Virus 2 PCR Not Detected (NotDetected); Parainfluenza Virus 3 PCR Not Detected (NotDetected); Parainfluenza Virus 4 PCR Not Detected (NotDetected); Respiratory Syncytial VirusPCR Not Detected (NotDetected); Rhinovirus/Enterovirus PCR Not Detected (NotDetected)
[2023-11-18 06:20] LABS: Troponin I High Sensitivity 6.2 pg/ml (0-14)
[2023-11-18 06:31] LABS: Partial Thromboplastin Ratio 0.8; Partial Thromboplastin Time 22 Seconds (21-31); Prothrombin Time 10.9 Seconds (9.0-12.0)
--- NOTE | 2023-11-18 06:43 | Emergency Department Note ---
ED Visit Note I was consulted by the Advanced Practice Provider. I personally made/approved the management plan and take responsibility for the patient management. I performed a substantive portion of the visit. This includes the aspects of: -Personally seeing the patient -MDM -I independently interpreted the following studies: Portable chest x-ray .
[2023-11-18] MEDS: PIPERACILLIN/TAZOBACTAM 4.5 GM/120 ML BAG IV ONE (06:44)
--- NOTE | 2023-11-18 07:10 | XRay Report ---
SINGLE VIEW CHEST CLINICAL HISTORY: Dyspnea FINDINGS: An AP, portable, upright chest radiograph is compared to study dated 09/24/2023 and correlat ed with chest CT dated 09/25/2023. The heart is enlarged. There is prominence of the pulmonary vascula ture. There are layering pleural effusions with dense bibasilar consolidation. No pneumothorax is see n. The skeletal structures are osteopenic. The bony thorax is grossly intact. IMPRESSION: 1. Cardiomegaly with prominence of the pulmonary vasculature. Correlate clinically for evidence of fl uid overload/congestive change. 2. Layering pleural effusions with dependent consolidation. Correlate clinically for evidence of pneu monia/aspiration pneumonitis. Radiographic follow-up to resolution is recommended. ACT 112: Negative or not required by law. Electronically signed by: Tomi Miller M.D. 11/18/2023 7:08 AM
[2023-11-18 07:35] LABS: Base Excess ABG -6.4 mEq/L (-9-1.8); HCO3 ABG 20 mmol/L (19-24); Oxygen Saturation ABG 97.3 % (90-95); PCO2 ABG 44 mmHg (35-46); PO2 ABG 77 mmHg (80-95); pH ABG 7.27 (7.35-7.45)
[2023-11-18 07:38] LABS: Allen Test Pos (Pos)
[2023-11-18 08:13] LABS: Amorphous Sediment Urine Present (None Prsent); Appearance Urine Cloudy (Clear); Bacteria Urine Automated None Seen (None Seen); Bilirubin Urine Negative (Negative); Blood Urine Negative (Negative); Cast Urine Automated >20 /lpf (0-2); Color Urine Yellow; Epithelial Cell Urine Auto 0-2 /hpf (0-2); Glucose Urine UA Negative (Negative); Ketones Urine Negative (Negative); Leukocyte Esterase Urine Negative (Negative); Nitrite Urine Negative (Negative); Protein Urine 3+ (Negative); RBC Urine Automated 0-2 /hpf (0-2); Specific Gravity Urine 1.017 (1.000-1.030); Urobilinogen Urine Negative (Negative); WBC Urine Automated 0-5 /hpf (0-5)
[2023-11-18] MEDS: DOXYCYCLINE HYCLATE 100 MG CAP PO STA (08:27)
[2023-11-18] MEDS: FUROSEMIDE 40 MG/4 ML VIAL IV ONE ×2 (08:27→15:21)
--- NOTE | 2023-11-18 08:53 | History & Physical Report ---
Date of Service November 18, 2023 Assessment & Plan (1) Acute hypoxemic respiratory failure: (2) Acute on chronic heart failure with preserved ejection fraction (HFpEF): (3) CKD (chronic kidney disease), stage III: (4) Obesity, morbid, BMI 40.0-49.9: (5) Diabetes mellitus, type II: (6) Hyperkalemia: Plan This is a 63-year-old female who has a significant past medical history of insulin-dependent T2DM, RADHA on nocturnal oxygen, pulmonary hypertension, morbid obesity, chronic diastolic heart failure, history of CVA, HTN, HLD, CKD and depression with anxiety who presents to ED secondary to shortness of breath x 4 days. Echocardiogram on 07/30/2023 revealed EF 60 to 65%, grade 1 diastolic dysfunction, left atrium moderately dilated, mild to moderate MR and elevated RVSP at 40 to 50 mmHg --Chest x-ray revealed cardiomegaly with prominence of pulmonary vasculature. Layering pleural effusions with dependent consolidation. Acute hypoxemic respiratory failure Acute on chronic heart failure with preserved ejection fraction Admit to PCU Continue BiPAP therapy for now Repeat ABG at noon Lasix 60 mg IV twice daily, patient reports being out of home torsemide for 2 days [place] catheter Daily weight, strict intake and output Consult cardiology Minimal suspicion for infectious etiology as procalcitonin negative, no reported fever, she does have a slight elevated WBC but suspect this is related to volume overload CKD stage III, baseline creatinine 1.5-2 Hyperkalemia Low threshold for nephro involvement Previously on Lokelma, this was DC'd Also previously on lisinopril and Aldactone, but this has been on hold since last admission due to renal function Avoid nephrotoxic agents, monitor renal function closely with diuresis Insulin-dependent T2DM Last A1c 8.6 on 09/25/2023 Lantus/NovoLog per protocol During previous admission metformin and Jardiance discontinued due to renal function CAD hx of Stent Hypertension HLD - on crestor Patient with elevated BPs in ED, likely in setting of overload as well as she did not take her morning medication Continue amlodipine, hydralazine and metoprolol History of CVA MRI brain in July revealed small acute infarcts in bilateral occipital lobe concerning for embolic infarcts On ASA 325 daily Given significant fall risk and vision issues no anticoagulation recommended unless clear arrhythmias confirmed Pulmonary hypertension Continue sildenafil Depression with anx continue lexapro RADHA, untreated, cpap noncompliant Abnormal Chest CT on previous admission pt following [facility] [address] pulmonology and underwent PET CT on 11/16 to eval adenopathy Morbid Obesity, BMI 47 encourage diet and lifestyle modifications DVT ppx : SQ Heparin DNR/DNI PCP: Bridgette Celis A total of 76 minutes was spent coordinating, documenting, and providing care for this patient excluding time spent in the performance of separately billed services. This included personally viewing all current laboratories and imaging studies, medication reconciliation, outpatient chart review, and discussion with specialists. Pt was seen and examined in collaboration with Dr. Casillas, please see addendum History of Present Illness Chief Complaint: SOB x 4 days. Primary Care Provider: Bridgette Celis MD This is a 63-year-old female who has a significant past medical history of insulin-dependent T2DM, RADHA on nocturnal oxygen, pulmonary hypertension, morbid obesity, chronic diastolic heart failure, history of CVA, HTN, HLD, CKD and depression with anxiety who presents to ED secondary to shortness of breath x 4 days. She states approximately 4 days ago she noticed an acute onset of shortness of breath that is progressively worsened over the last few days. She felt it came on abruptly. She further complained of orthopnea. She feels her weight has been baseline around 240 to 245 pounds. She denies any significant increase in edema to her lower extremities. She states home nursing measures her legs on a regular basis and feels they are at baseline. She does note that her pharmacy has been out of her torsemide and she had missed 2 days of this medication. She was able to take a dose last evening and did not know any difference in her symptoms. She denies any fever, chills, sweats, lightheadedness, dizziness, chest pain, hemoptysis, vomiting or abdominal pain. She does have a wet productive cough, but due to visual acuity at baseline she is on sure nature of sputum. She does appreciate a cough chronically and does not feel this is changed. She denies any sick contacts. Of significance patient was hospitalized in September from September 23 to September 28 secondary to acute hypoxic respiratory failure. Initially there was concern about a pneumonic component and she was started on IV antibiotics. This admission required BiPAP initially as well. She was seen and evaluated by pulmonology who felt symptoms are more so related to pulmonary edema and CHF as opposed to pneumonia. Her hospitalization was complicated by acute on chronic CKD in which nephrology was following and assisting with diuresis. At discharge she was placed on torsemide 40 mg in the morning and 20 mg in the evening. It was also recommended that she discontinue her metformin, Jardiance, lisinopril and Aldactone for the time being due to renal function. Baseline creatinine is 1.5-2. In ED patient was hypoxic upon arrival. Initially requiring nonrebreather which eventual transition to BiPAP due to increased work of breathing. Her ABG pH was 7.27. Allergies Allergy/AdvReac Type Severity Reaction Status Date / Time No Known Allergies Allergy Verified 09/24/23 20:25 Home Medications Medication Instructions Recorded Confirmed Type amlodipine 10 mg tablet 10 mg PO DAILY 07/29/23 11/18/23 History escitalopram oxalate 20 mg tablet 20 mg PO DAILY 07/29/23 11/18/23 History hydralazine 100 mg tablet 100 mg PO TID 07/29/23 11/18/23 History metoprolol succinate 100 mg 100 mg PO QAM 07/29/23 11/18/23 History tablet,extended release 24 hr sildenafil (pulm.hypertension) 20 20 mg PO TID 07/29/23 11/18/23 History mg tablet rosuvastatin 20 mg tablet (Crestor) 20 mg PO QAM #0 tabs 08/07/23 11/18/23 Rx insulin glargine 100 unit/mL (3 25 unit subcut QAM 09/24/23 11/18/23 History mL) subcutaneous pen (Lantus Solostar U-100 Insulin) aspirin 325 mg tablet 325 mg PO DAILY 09/25/23 11/18/23 History torsemide 20 mg tablet 20 mg PO BID #90 tabs 09/28/23 11/18/23 Rx Past Med/Surg History Problem List Hyperkalemia Acute on chronic heart failure with preserved ejection fraction (HFpEF) RADHA (obstructive sleep apnea) CHF (congestive heart failure) Hypoxia (Acute) Acute hypoxemic respiratory failure (Acute) ASHLY (acute kidney injury) (Acute) CVA (cerebral vascular accident) Obesity, morbid, BMI 40.0-49.9 Recent URI Foot ulcer, left Elevated troponin Hypertensive urgency Stroke-like symptoms CKD (chronic kidney disease), stage III Chronic diastolic CHF (congestive heart failure) (Acute) Anxiety and depression Pulmonary hypertension Hypothyroidism CAD (coronary artery disease) Diabetes mellitus, type II (Acute) HLD (hyperlipidemia) Hypertension (Acute) Hyperglycemia (Acute) Non-ST elevation NC (NSTEMI) (Acute) Weakness (Acute) Surgical History History of cardiac cath s/p stents Social History Smoking Status: Never smoker Do You Dip or Chew Tobacco: No; Hx Alcohol Use: No Hx Substance Use: No Preferred Language: Brazilian Communication Ability: Effective Doll Wig Maker Required: No Beliefs That Will Affect Care: None Current Living Situation: Family Current Living Situation Comment: lives with son Feels Safe at Home: Yes Gender Identity: Female Assistive Devices: Bedside Commode and Walker Review of Systems Review of Systems: All systems reviewed & are unremarkable except as noted in HPI & below Physical Exam Physical Exam: Constitutional: WD/WN, vitals as above, NAD, sitting up in bed, pleasant, conversing easily Head: Normocephalic, Atraumatic Eyes: PERRL, conjunctivae normal, anicteric sclerae ENMT: external ear and nose normal, oropharynx normal Neck: trachea midline, no thyromegaly normal visual inspection Respiratory: normal respiratory effort, lungs clear to auscultation, no wheeze, rales, rhonchi. Normal insp/exp effort, no accessory muscle use Cardiovascular: RRR, no murmur, no edema Vessels: no JVD or carotid bruit Chest: normal inspection of chest Abdomen: normal bowel sounds, soft, nontender, no hepatosplenomegaly Musculoskeletal: no cyanosis or clubbing, extremities motor strength 5/5 Skin: no rashes, warm and dry normal turgor Neurologic: PERRL, EOMI, accommodation nl, no face palsy, no dysarthria CN's II-XI intact bilaterally and moves all extremities Psychiatric: A+Ox3, euthymic affect Lymphatic: no cervical or axillary lymphadenopathy : deferred Results & Data Results & Data Vital Signs (Past 12 Hours) Vital Signs Temp Pulse Pulse Resp BP BP Pulse Ox 11/18/23 08:46 62 11/18/23 07:34 61 22 91 11/18/23 07:30 61 19 162/60 H 92 11/18/23 07:03 60 20 143/79 H 92 11/18/23 06:00 60 18 91 11/18/23 05:36 62 20 140/91 91 11/18/23 05:15 60 22 92 11/18/23 05:10 62 24 91 11/18/23 04:45 60 11/18/23 04:37 78 L 11/18/23 04:37 36.7 C 61 24 140/91 78 L O2 Del Method O2 Flow Rate FiO2 11/18/23 08:46 11/18/23 07:34 60 11/18/23 07:30 60 11/18/23 07:03 BiPAP 60 11/18/23 06:00 BiPAP 11/18/23 05:36 BiPAP 11/18/23 05:15 Non-rebreather 15 11/18/23 05:10 60 11/18/23 04:45 11/18/23 04:37 Room Air 0 11/18/23 04:37 Room Air Diagnostic Findings Chest X-Ray 11/18/23 04:52 SINGLE VIEW CHEST CLINICAL HISTORY: Dyspnea FINDINGS: An AP, portable, upright chest radiograph is compared to study dated 09/24/2023 and correlated with chest CT dated 09/25/2023. The heart is enlarged. There is prominence of the pulmonary vasculature. There are layering pleural effusions with dense bibasilar consolidation. No pneumothorax is seen. The skeletal structures are osteopenic. The bony thorax is grossly intact. IMPRESSION: 1. Cardiomegaly with prominence of the pulmonary vasculature. Correlate clinically for evidence of fluid overload/congestive change. 2. Layering pleural effusions with dependent consolidation. Correlate clinically for evidence of pneumonia/aspiration pneumonitis. Radiographic follow-up to resolution is recommended. ACT 112: Negative or not required by law. Electronically signed by: Tomi Miller M.D. 11/18/2023 7:08 AM Medications Administered Medication List Discontinued Medications Doxycycline Hyclate (Doxycycline Hyclate 100 Mg Cap) 100 mg PO NOW STA Stop: 11/18/23 06:32 Last Admin: 11/18/23 08:27 Dose: 100 mg Documented By: HILLARY Furosemide (Furosemide 40 Mg/4 Ml Vial) 60 mg IV ONE ONE Stop: 11/18/23 08:18 Last Admin: 11/18/23 08:27 Dose: 60 mg Documented By: HILLARY Piperacillin Sod/Tazobactam Sod (Zosyn) 4.5 gm in 120 mls @ 240 mls/hr IV NOW ONE Stop: 11/18/23 07:02 Last Infusion: 11/18/23 07:17 Dose: Infused Documented By: Admin: 11/18/23 06:44 Dose: 240 mls/hr Documented By: LAUREL ECG Rate (beats per minute): 60 Rhythm: normal sinus Additional Comments: I have independently reviewed and interpreted patient's admitting EKG which revealed: 60bpm, no st t wave changes, incomplete LBBB, no change from ecg on 09/24/23 COVID-19 Results Results COVID-19 Adm Lab Results: RBC 4.19 M/uL (4.20-5.40) L 11/18/23 WBC 12.22 K/ul (4.8-10.8) H 11/18/23 Hgb 10.9 g/dl (12.0-16.0) L 11/18/23 Hct 35.5 % (37.0-47.0) L 11/18/23 Plt Count 253 K/uL (130-400) 11/18/23 Neutrophils (%) (Auto) 87.3 % 11/18/23 Lymphocytes (%) (Auto) 5.3 % 11/18/23 Monocytes # (Auto) 0.65 K/uL (0.11-0.59) H 11/18/23 Eosinophils # (Auto) 0.15 K/uL (0.00-0.50) 11/18/23 Immature Granulocyte % (Auto) 0.4 % 11/18/23 Neutrophils # (Auto) 10.66 K/uL (1.40-6.50) H 11/18/23 Lymphocytes # (Auto) 0.65 K/uL (1.20-3.40) L 11/18/23 Monocytes # (Auto) 0.65 K/uL (0.11-0.59) H 11/18/23 Eosinophils # (Auto) 0.15 K/uL (0.00-0.50) 11/18/23 Basophils # (Auto) 0.06 K/uL (0.00-0.20) 11/18/23 Immature Granulocyte # (Auto) 0.05 K/uL (0.01-0.20) 4 Na 139 mmol/L (136-145) 11/18/23 K 5.4 mmol/L (3.5-5.1) H 11/18/23 Cl 109 mmol/L (98-107) H 11/18/23 CO2 23 mmol/L (21-32) 11/18/23 Anion Gap 7 (3-11) 11/18/23 BUN 89 mg/dl (6-23) H 11/18/23 Creatinine 2.04 mg/dl (0.6-1.2) H 11/18/23 BUN/Creatinine Ratio 43.6 (10-20) H 11/18/23 Glucose Level 196 mg/dl (70-99(Fasting)) H 11/18/23 Ca 9.8 mg/dl (8.6-10.3) 11/18/23 Total Bilirubin 0.7 mg/dl (0.2-1.0) 11/18/23 AST/SGOT 13 U/L (13-39) 11/18/23 ALT/SGPT 20 U/L (7-52) 11/18/23 Alkaline Phosphatase 130 U/L (34-104) H 11/18/23 Total Protein 8.0 gm/dl (6.0-8.3) 11/18/23 Albumin 3.7 gm/dl (3.4-5.0) 11/18/23 Globulin 4.3 gm/dl (2.5-4.0) H 11/18/23 Albumin/Globulin Ratio 0.9 (0.9-2) 11/18/23 Procalcitonin 0.02 ng/ml (0-0.5) 11/18/23 PTT 22 Seconds (21-31) 11/18/23 INR 1.0 (0.9-1.1) 11/18/23 Adenovirus (PCR) Not Detected (NotDetected) 11/18/23 B. parapertussis DNA (PCR) Not Detected (NotDetected) 11/05 B. pertussis DNA (PCR) Not Detected (NotDetected) 11/18/23 C. pneumoniae DNA (PCR) Not Detected (NotDetected) 4 Coronavirus Type OC43 (PCR) Not Detected (NotDetected) 11/05 Coronavirus Type HKU1 (PCR) Not Detected (NotDetected) 11/05 Coronavirus Type 229E (PCR) Not Detected (NotDetected) 11/05 COVID-19 PCR Not Detected (NotDetected) 11/18/23 Coronavirus Type NL63 (PCR) Not Detected (NotDetected) 11/05 Human Metapneumovirus (PCR) Not Detected (NotDetected) 11/05 Influenza Virus Type A (PCR) Not Detected (NotDetected) Influenza Virus Type B (PCR) Not Detected (NotDetected) M. pneumoniae (PCR) Not Detected (NotDetected) 11/18/23 Parainfluenza Type 1 (PCR) Not Detected (NotDetected) 11/05 Parainfluenza Type 2 (PCR) Not Detected (NotDetected) 11/05 Parainfluenza Type 3 (PCR) Not Detected (NotDetected) 11/05 Parainfluenza Type 4 (PCR) Not Detected (NotDetected) 11/05 RSV (PCR) Not Detected (NotDetected) 11/18/23 Enterovirus/Rhinovirus (PCR) Not Detected (NotDetected) ABG pH 7.27 (7.35-7.45) L 11/18/23 ABG pCO2 44 mmHg (35-46) 11/18/23 ABG pO2 77 mmHg (80-95) L 11/18/23 ABG HCO3 20 mmol/L (19-24) 11/18/23 ABG O2 Saturation 97.3 % (90-95) H 11/18/23 ABG Base Excess -6.4 mEq/L (-9-1.8) 11/18/23 Chest X-Ray 11/18/23 Code Status & VTE Plan Code Status DNR/DNI VTE Prophylaxis Plan VTE Prophylaxis will be ordered: Yes Supervising Physician Co-Signing Physician Notes Patient seen and examined Reports worsening shortness of breath over the past few days. Reported that she has been out of her torsemide for about 2 days as pharmacy did not have medication. Denied fever, chills. Labs notable for potassium of 5.4, creatinine of 2.04, VBG of 7.27, pCO2 of 52, magnesium of 2.9, BNP of 242. Likely acute on chronic heart failure exacerbation based on history. Continue IV Lasix twice daily for now. Reviewed recent echo from July 2023. Patient reports that her pharmacy usually does not have all the medications she needs. Discussed with patient possibility of using a different pharmacy. BIPAP for respiratory acidosis/hypercarbia Agree with other plans as detailed by advanced provider and take full responsibi lity
--- OUTSIDE RECORDS SUMMARY | 2023-11-18 13:36 | External Medical Summary | Summary of Care ---
Author Name Unknown Organization [facility] Address [address] [facility] [place] [address] Phone [phone] Care Team Providers Care Lab Support Technician Name Role Phone Bridgette Celis MD Primary Care Provider + Reason for Visit * Reason Onset Date Comments transfer of records 10/28/2023 dioni Blackwell Encounter Details Date Type Department Care Team (Late st Contact Info) Description 10/28/2023 Telephone Pulmonary Medicine, [facility] [address] [facility] [place] [address] Eduardo Christine MD [address] [facility] [phone] transfer of records (Beau Culp, pul) Allergies No known active allergiesdocumented as of this encounter (statuses as of 11/13/2023) Medications Medication Sig Dispensed Refills Start Date End Date Status Spironolactone 25 MG Oral Tablet (Aldactone)Indicati ons:Chronic diastolic heart failure (HCC) Take 1 Tablet by mouth in the morning. 01/17/2023 Active Torsemide 20 MG Oral Tablet (Demadex)Indication s:Chronic diastolic heart failure (HCC) Take 2 Tablets by mouth in the morning and 2 Tablets before bedtime. 40 in the AM and 20 in the PM. 01/17/2023 Active Metoprolol Succinate ER 100 MG Oral Tablet Extended Release 24 Hour (toPROL XL)Indications:Wrapper Stitcher yaw diastolic heart failure (HCC) Take 1 Tablet by mouth in the morning. 30 Tablet 11 03/16/2023 Active Lisinopril 2.5 MG Oral Tablet (Prinivil)Indicatio ns:Chronic diastolic heart failure (HCC),Coronary artery disease involving [place] coronary artery of [place] heart without angina pectoris,Uncontroll ed type 2 diabetes mellitus with hyperglycemia (HCC),RADHA (obstructive sleep apnea) Take 4 Tablets by mouth in the morning. 90 Tablet 3 03/23/2023 Active Lokelma 10 GM Oral Packet Take 1 Packet by mouth in the morning. 08/20/2023 Active OneTouch Delica Plus [id number] Use as directed. 400 Each 3 10/01/2023 Active Lantus SoloStar 100 UNIT/ML Subcutaneous Solution Pen-injectorIndicat ions:Type 2 diabetes mellitus with hemoglobin A1c goal of less than 7.5% ([facility]) Inject 25 Units under the skin in the morning. 15 mL 3 10/13/2023 Active OneTouch Ultra In Vitro Strip (Glucose Blood)Indications:T ype 2 diabetes mellitus with hemoglobin A1c goal of less than 7.5% (HCC) Use to check blood sugar up to 4 times daily 400 Strip 3 10/13/2023 Active Sildenafil Citrate 20 MG Oral Tablet (Revatio)Indication s:Coronary artery disease involving [place] coronary artery of [place] heart without angina pectoris,HTN, goal below 140/90,RADHA (obstructive sleep apnea),Chronic diastolic heart failure (HCC) Take 1 Tablet by mouth in the morning and 1 Tablet at noon and 1 Tablet before bedtime. 90 Tablet 2 10/13/2023 Active amLODIPine Besylate 10 MG Oral Tablet (Norvasc) Take 1 Tablet by mouth in the morning. 90 Tablet 3 10/26/2023 Active hydrALAZINE HCl 100 MG Oral Tablet Take 1 Tablet by mouth in the morning and 1 Tablet at noon and 1 Tablet before bedtime. 90 Tablet 10/26/2023 Active Rosuvastatin Calcium 20 MG Oral Tablet (Crestor) Take 1 Tablet by mouth in the morning. 90 Tablet 3 10/26/2023 Active Escitalopram Oxalate 20 MG Oral Tablet (Lexapro) Take 1 Tablet by mouth in the morning. 90 Tablet 3 10/26/2023 Active Empagliflozin 25 MG Oral Tablet (Jardiance)Indicati ons:Type 2 diabetes mellitus with hemoglobin A1c goal of less than 7.5% (HCC) Take 1 Tablet by mouth in the morning. 30 Tablet 11 03/16/2023 4 Discontinued metFORMIN HCl ER 500 MG Oral Tablet Extended Release 24 Hour (Glucophage XR)Indications:Unco ntrolled type 2 diabetes mellitus with hyperglycemia (HCC) 1 daily with dinner x 1 wk, then inc to 2 daily--st 03/23/2023 60 Tablet 2 03/23/2023 4 Discontinued Hospital, Clinic, or Other Facility Administered Medication Ordered Dose Route Frequency Start Date End Date Status Albuterol Sulfate (Proventil) (2.5 MG/3ML) 0.083% inhalation solution 2.5 mgIndications:Pulmonary HTN (HCC),Type 2 diabetes mellitus with hemoglobin A1c goal of less than 7.5% (HCC) 2.5 mg NEBULIZER PRN 10/28/2023 10/27/2024 Acti ve Albuterol Sulfate (Proventil) (5 MG/ML) 0.5% *conc* inhalation solution 2.5 mgIndications:Pulmonary HTN (HCC),Type 2 diabetes mellitus with hemoglobin A1c goal of less than 7.5% (HCC) 2.5 mg NEBULIZER PRN 10/28/2023 10/27/2024 Acti ve documented as of this encounter (statuses as of 11/13/2023) Active Problems Problem Noted Date Diagnosed Date Body mass index (BMI) of 45.0 to 49.9 in adult 0 10/26/2023 Overview: Per Obesity protocol - Per Obesity protocol Cerebrovascular disease, arteriosclerotic, post- stroke 08/27/2023 Diabetic ulcer of left heel associated with type 2 diabetes mellitus 08/27/2023 HTN, goal below 130/80 08/27/2023 Pulmonary HTN 01/17/2023 Coronary artery disease invo lving [place] coronary artery of [place] heart without angina pectoris 01/17/2023 Chronic diastolic heart failure 01/17/2023 Lymphedema 01/17/2023 HTN, goal below 140/90 01/17/2023 Type 2 diabetes mellitus wit h hemoglobin A1c goal of less than 7.5% 01/17/2023 Diabetic retinopathy associa rishi with type 2 diabetes mellitus 01/17/2023 Hidradenitis suppurativa 01/17/2023 RADHA (obstructive sleep apnea) 01/17/2023 Kidney disease, chronic, stage III (GFR 30-59 ml /min) 01/17/2023 BERTA (generalized anxiety disorder) 01/17/2023 Recurrent major depressive disorder, in full rem ission 01/17/2023 documented as of this encounter (statuses as of 11/13/2023) Resolved Problems Problem Noted Date Diagnosed Date Resolved Date Stage 3a chronic kidney disease 08/27/2023 09/24/2023 Body mass index (BMI) of 40. 0 to 44.9 in adult 04/27/2023 10/28/2023 Overview: Per Obesity protocol documented as of this encounter (statuses as of 11/13/2023) Immunizations Name Administration Dates Next Due Pneumococcal Conjugate Vacci ne, 20-valent ([id number]) 03/23/2023 Pneumococcal Polysaccharide PPV23 (Pneumovax) 01/06/2008 Seasonal Influenza, Quadriva lent, No Preserve, IM 03/16/2020 Seasonal Influenza, Split, I IV3, With Preserve, Inj 03/16/2020,03/23/2019,04/19/2018,03/09,04/23/2015,05/01/2008 TDAP (age 10 and older)(Boostrix) 03/23/2023, documented as of this encounter Social History Tobacco Use Types Packs/Day Years Used Date Smoking Tobacco: Never Smokeless Tobacco: Never Alcohol Use Standard Drinks/Week Comments Not Currently 0 (1 standard drink = 0.6 oz pur e alcohol) PHQ-2 Answer Date Recorded PHQ Adult Total Score 0 08/27/2023 Hunger Vital Sign Answer Date Recorded Within the past 12 months, y ou worried that your food would run out before you got the money to buy more. Never true 09/07/19 24 Within the past 12 months, t he food you bought just didn't last and you didn't have money to get more. Never true 09/07/2023 Sex and Gender Information Value Date Recorded Sex Assigned at Not on file Gender Identity Not on file Sexual Orientation Not on file Job Start Date Occupation Industry Not on file Not on file Not on file documented as of this encounter Miscellaneous Notes * Telephone Encounter - Sunita Hampton LPN - 11/13/2023 10:36 AM EDT Sent teams message to Holly Ramirez in radiology, asking that the images be pushed. * Telephone Encounter - Eduardo Christine MD - 11/13/2023 10:31 AM EDT [facility] CD is not uploaded yet Into PACS. Please check with Radiology regarding any update. * Telephone Encounter - Paradise Pool LPN - 11/10/2023 1:19 PM EDT CD from [facility] was received and given to radiology to be scanned into the chart * Telephone Encounter - Eduardo Christine MD - 11/04/2023 7:53 AM EDT [facility] CT scan record has been updated and reviewed in PACS by myself. [facility] records are not uploaded yet. Follow-up requested. * Telephone Encounter - Sunita Hampton LPN - 10/29/2023 1:44 PM EDT Images requested from [facility] via message left on their medical records request line. Images from [facility] have been pushed to [facility]. * Telephone Encounter - Eduardo Christine MD - 10/28/2023 2:46 PM EDT Please request [facility] for 2019 CT scan chest films and 2019 PET scan films uploaded in our PACS. Please request [facility] for 2023 CT scan chest films uploaded in our PACS. documented in this encounter Plan of Treatment Upcoming Encounters Date Type Department Care Team (Late st Contact Info) Description 11/17/2023 10:45 AM EDT Imaging Radiology [address] [place] [address] 11/18/2023 9:00 AM EDT Office Visit Cardiology, [facility] [address] [facility] [place] [address] Stevie Villegas DO 132 [facility] [place] [address] 11/23/2023 9:30 AM EDT [facility], [address] [place] [address] [facility], Pulm Function Room 1 [address] [place] [address] 11/23/2023 10:00 AM EDT [facility], [address] [place] [address] [facility], Pulm Function Room 2 [address] [place] [address] 11/26/2023 12:30 PM EDT Cardiac Studies Cardiac Studies [address] [place] [address] 11/30/2023 12:00 PM EDT Office Visit Pulmonary Medicine, [facility] [address] [facility] [place] [address] Eduardo Christine MD [address] [place] [address] 12/29/2023 3:40 PM EDT Office Visit General Internal Medicine [facility] [address] [place], [place] [address] Bridgette Celis MD [address] [place] [address] 04/19/2024 9:40 AM EST Office Visit General Internal Medicine [facility] [place] [address] [place] [address] [address] Bridgette Celis MD [address] [place] [address] Health Maintenance Due Date Last Done Comments Diabetic Eye Exam 1976 Cologuard 2003 Colonoscopy 2003 Colorectal Cancer Screening 2003 Fecal Occult Blood Test 2003 Sigmoidoscopy 2003 Zoster Vaccines (1 of 2) 2008 Mammogram 12/17/2022 12/17/2021, 1209/2016, 11/20/2014, Additional history exists *BASELINE EKG FOR HTN 01/19/2023 COVID-19 Vaccine ( season) 2023 DXA Scan 2023 HbA1c 07/20/2023 01/17/2023, 0710/2021, 09/24/2021, Additional history exists Albumin/Creatinine Ratio 01/18/2024 01/17/2023 CKD PHOS USE SMARTSET 36682 01/18/2024 01/17/2023, 0 12/25/2019 Influenza Vaccine (FLU shot) (Season Ended) 2024 03/16/2020, 03/16/2020, 03/23/2019, Additional history exists Diabetic Foot Exam 03/23/2024 03/23/2023 GFR 04/13/2024 10/13/2023, 08/13, 08/15/2023, Additional history exists CKD HGB USE SMARTSET 31026 08/14/202408/14, 08/08/2023, 03/23/2023, Additional history exists DTaP,Tdap,and Td Vaccines (3 - Td or Tdap) 03/23/2033 03/23/2023, 08/28/2006 Pneumococcal Vaccine: 65+ Years Completed 03/23/2023, 01/06/2008 GARDASIL-HPV IMMUNIZATION SERIES Aged Out No longer eligible based on patient's age to complete this topic Hepatitis B Aged Out No longer eligi ble based on patient's age to complete this topic MENINGOCOCCAL (MENACTRA/MENVEO) Aged Out No longer eligible based on patient's age to complete this topic documented as of this encounter Medical Devices Not on filedocumented as of this encounter Advance Directives Healthcare Agents on File Name Relationship Healthcare Agent Relationshi p Communication Tomi Rao Adult Child Health Care Agen t (per Health Care Power of Bottom Crane Operator document) Care Teams Lab Support Technician Relationship Specialty Start Date End Date Bridgette Celis MD 200 [facility] [place] [address] PCP - General Internal Medicine 09/30/23 documented as of this encounter
--- OUTSIDE RECORDS SUMMARY | 2023-11-18 13:36 | External Medical Summary | Summary of Care ---
Author Name Unknown Organization [facility] Address [address] [facility] [place] [address] Phone [phone] Care Team Providers Care Reference Services Head Name Role Phone Bridgette Celis MD Primary Care Provider + Reason for Visit * Reason Onset Date Comments transfer of records 10/28/2023 dioni Blackwell Encounter Details Date Type Department Care Team (Late st Contact Info) Description 10/28/2023 Telephone Pulmonary Medicine, [facility] 132 [facility] [place] [address] Eduardo Christine MD [address] [facility] [phone] transfer of records (Beau Culp, pul) Allergies [...] Oral Tablet Extended Release 24 Hour (toPROL XL)Indications:[employer] Supervisor yaw diastolic heart failure (HCC) Take 1 Tablet by mouth in the morning. 30 Tablet 11 03/16/2023 Active Lisinopril 2.5 MG Oral Tablet (Prinivil)Indicatio ns:Chronic diastolic heart failure (HCC),Coronary artery disease involving [place] coronary artery of [place] heart without angina pectoris,Uncontroll ed type 2 diabetes mellitus with hyperglycemia (HCC),RADHA (obstructive sleep apnea) Take 4 Tablets by mouth in the morning. 90 Tablet 3 03/23/2023 Active Lokelma 10 GM Oral Packet Take 1 Packet by mouth in the morning. 08/20/2023 Active OneTouch Delica Plus [id number] Use as directed. 400 Each 3 10/01/2023 Active Lantus SoloStar 100 UNIT/ML Subcutaneous Solution Pen-injectorIndicat ions:Type 2 diabetes mellitus with hemoglobin A1c goal of less than 7.5% ([facility]) Inject 25 Units under the skin in the morning. 15 mL 3 10/13/2023 Active OneTouch Ultra In Vitro Strip (Glucose Blood)Indications:T ype 2 diabetes mellitus with hemoglobin A1c goal of less than 7.5% (HCC) Use to check blood sugar up to 4 times daily 400 Strip 3 10/13/2023 Active Sildenafil Citrate 20 MG Oral Tablet (Revatio)Indication s:Coronary artery disease involving [place] coronary artery of [place] heart without angina pectoris,HTN, goal below 140/90,RADHA [...] HTN 01/17/2023 Coronary artery disease invo lving [place] coronary artery of [place] heart without angina pectoris 01/17/2023 Chronic diastolic [...] Next Due Pneumococcal Conjugate Vacci ne, 20-valent ([id number]) 03/23/2023 Pneumococcal Polysaccharide PPV23 (Pneumovax) 01/06/2008 Seasonal [...] encounter Miscellaneous Notes * Telephone Encounter - Eduardo Christine MD - 11/13/2023 10:31 AM EDT [facility] CD is not uploaded yet Into PACS. Please check with Radiology regarding any update. * Telephone Encounter - Paradise Pool LPN - 11/10/2023 1:19 PM EDT CD from [facility] was received and given to radiology to be scanned into the chart * Telephone Encounter - Eduardo Christine MD - 11/04/2023 7:53 AM EDT [facility] CT scan record has been updated and reviewed in PACS by myself. [facility] records are not uploaded yet. Follow-up requested. * Telephone Encounter - Sunita Hampton LPN - 10/29/2023 1:44 PM EDT Images requested from [facility] via message left on their medical records request line. Images from [facility] have been pushed to [facility]. * Telephone Encounter - Eduardo Christine MD - 10/28/2023 2:46 PM EDT Please request [facility] for 2019 CT scan chest films and 2019 PET scan films uploaded in our PACS. Please request [facility] for 2023 CT scan chest films uploaded in our PACS. documented in this encounter Plan of Treatment Upcoming Encounters Date Type Department Care Team (Late st Contact Info) Description 11/17/2023 10:45 AM EDT Imaging Radiology [address], [place] [address] [facility] [place] [address] 11/18/2023 9:00 AM EDT Office Visit Cardiology, [facility] [address] [place] [address] Stevie Villegas DO [address] [place] [address] 11/23/2023 9:30 AM EDT PulmDiagnostic Pulmonary Function Lab, [facility] 400 [facility], [place] [address] [facility], Pulm Function Room 1 400 [place] [address] 11/23/2023 10:00 AM EDT [facility]ostic Pulmonary Function Lab, [facility] [address] [place] [address] [facility], Pulm Function Room 2 [address] [place] [address] 11/26/2023 12:30 PM EDT Cardiac Studies Cardiac Studies [address] [place] [address] 11/30/2023 12:00 PM EDT Office Visit Pulmonary Medicine, [facility] [address] [place] [address] Eduardo Christine MD [address] [place] [address] 12/29/2023 3:40 PM EDT Office Visit General Internal Medicine [facility] [address] [place] [address] Bridgette Celis MD [address] [place] [address] 04/19/2024 9:40 AM EST Office Visit General Internal Medicine [address] [place] [address] [place], [place] [address] Bridgette Celis MD [address] [place], [place] [address] Health Maintenance Due Date Last Done Comments Diabetic Eye Exam 1976 Cologuard 2003 Colonoscopy 2003 Colorectal Cancer Screening 2003 Fecal Occult Blood Test 2003 Sigmoidoscopy 2003 Zoster Vaccines (1 of 2) 2008 Mammogram 12/17/2022 12/17/2021, 12/0 09/2016, 11/20/2014, Additional history exists *BASELINE EKG FOR HTN 01/19/2023 COVID-19 Vaccine ( season) 2023 DXA Scan 2023 HbA1c 07/20/2023 01/17/2023, 0 10/2021, 09/24/2021, Additional history exists Albumin/Creatinine Ratio 01/18/2024 01/17/2023 CKD PHOS USE SMARTSET 79730 01/18/2024 01/17/2023, 0 12/25/2019 Influenza Vaccine (FLU shot) (Season Ended) 2024 03/16/2020, 03/16/2020, 03/23/2019, Additional history exists Diabetic Foot Exam 03/23/2024 03/23/2023 GFR 04/13/2024 10/13/2023, 08/13, 08/15/2023, Additional history exists CKD HGB USE SMARTSET 89364 08/14/202408/14, 08/08/2023, 03/23/2023, Additional history exists DTaP,Tdap,and [...] Agen t (per Health Care Power of Waiter/Waitress Head document) Care Teams Reference Services Head Relationship Specialty Start Date End Date Bridgette Celis MD [address] [place] [id number] PCP - General Internal Medicine 09/30/23 documented as of this encounter
--- OUTSIDE RECORDS SUMMARY | 2023-11-18 13:36 | External Medical Summary | Summary of Care ---
Author Name Unknown Organization [facility] Address [address] [place] [address] Phone [phone] Care Team Providers Care Client Service Representative Name Role Phone Bridgette Celis MD Primary Care Provider + Reason for Visit * Reason Onset Date Comments Hospital Follow-Up 08/10/2023 Encounter Details Date Type Department Care Team (Late st Contact Info) Description 08/10/2023 Telephone General Internal Medicine [facility] 200 [facility] [place] [address] Bridgette Celis MD [address] [facility] [address] [facility] Follow-Up Allergies No known active allergiesdocumented as of this encounter (statuses as of 11/09/2023) Medications Medication Sig Dispensed Refills Start Date End Date Status Spironolactone 25 MG Oral Tablet (Aldactone)Indicat ions:Chronic diastolic heart failure (HCC) Take 1 Tablet by mouth in the morning. 01/17/2023 Active Torsemide 20 MG Oral Tablet (Demadex)Indicatio ns:Chronic diastolic heart failure (HCC) Take 2 Tablets by mouth in the morning and 2 Tablets before bedtime. 40 in the AM and 20 in the PM. 01/17/2023 Active Metoprolol Succinate ER 100 MG Oral Tablet Extended Release 24 Hour (toPROL XL)Indications:Chr onic diastolic heart failure (HCC) Take 1 Tablet by mouth in the morning. 30 Tablet 11 03/16/2023 Active Lisinopril 2.5 MG Oral Tablet (Prinivil)Indicati ons:Chronic diastolic heart failure (HCC),Coronary artery disease involving three affiliated coronary artery of three affiliated heart without angina pectoris,Uncontrol led type 2 diabetes mellitus with hyperglycemia (HCC),RADHA (obstructive sleep apnea) Take 4 Tablets by mouth in the morning. 90 Tablet 3 03/23/2023 Active Sildenafil Citrate 20 MG Oral Tablet (Revatio) Take 1 Tablet by mouth in the morning and 1 Tablet at noon and 1 Tablet before bedtime. 07/08/2022 4 Discontinued(Ref ill) Trulicity 3 MG/0.5ML Subcutaneous Solution Pen-injector once a week. 11/14/2022 4 Discontinued Insulin Detemir 100 UNIT/ML Subcutaneous Solution Pen-injector (Levemir) Inject 45 Units under the skin in the morning and 45 Units before bedtime. 11/25/2022 4 Discontinued Escitalopram Oxalate 20 MG Oral Tablet (Lexapro) Take 1 Tablet by mouth in the morning. 09/15/2022 4 Discontinued(Ref ill) hydrALAZINE HCl 100 MG Oral Tablet Take 1 Tablet by mouth in the morning and 1 Tablet at noon and 1 Tablet before bedtime. 01/17/2023 4 Discontinued(Ref ill) amLODIPine Besylate 10 MG Oral Tablet (Norvasc) TAKE 1 TABLET BY MOUTH ONCE DAILY 30 Tablet 3 03/08/2023 4 Discontinued(Ref ill) Rosuvastatin Calcium 10 MG Oral Tablet (Crestor) TAKE 1 TABLET BY MOUTH ONCE DAILY 30 Tablet 3 03/08/2023 4 Discontinued(Med ication/Dose Changed) Empagliflozin 25 MG Oral Tablet (Jardiance)Indicat ions:Type 2 diabetes mellitus with hemoglobin A1c goal of less than 7.5% (HCC) Take 1 Tablet by mouth in the morning. 30 Tablet 11 03/16/2023 4 Discontinued metFORMIN HCl ER 500 MG Oral Tablet Extended Release 24 Hour (Glucophage XR)Indications:Unc ontrolled type 2 diabetes mellitus with hyperglycemia (HCC) 1 daily with dinner x 1 wk, then inc to 2 daily--st 03/23/2023 60 Tablet 2 03/23/2023 4 Discontinued documented as of this encounter (statuses as of 11/09/2023) Active Problems Problem Noted Date Diagnosed Date Body mass index (BMI) of 45.0 to 49.9 in adult 0 10/26/2023 Overview: Per Obesity protocol - Per Obesity protocol Cerebrovascular disease, arteriosclerotic, post- stroke 08/27/2023 Diabetic ulcer of left heel associated with type 2 diabetes mellitus 08/27/2023 HTN, goal below 130/80 08/27/2023 Pulmonary HTN 01/17/2023 Coronary artery disease invo lving three affiliated coronary artery of three affiliated heart without angina pectoris 01/17/2023 Chronic diastolic [...] as of this encounter (statuses as of 11/09/2023) Resolved Problems Problem Noted Date Diagnosed Date Resolved Date Stage 3a chronic kidney disease 08/27/2023 09/24/2023 Body mass index (BMI) of 40. 0 to 44.9 in adult 04/27/2023 10/28/2023 Overview: Per Obesity protocol documented as of this encounter (statuses as of 11/09/2023) Immunizations Name Administration Dates Next Due Pneumococcal Conjugate Vacci ne, 20-valent ([id number]) 03/23/2023 Pneumococcal Polysaccharide PPV23 (Pneumovax) 01/06/2008 Seasonal [...] encounter Miscellaneous Notes * Telephone Encounter - Sandra Martinez LPN - 08/11/2023 1:16 PM EST Lab orders faxed to [facility] along with Note to provide BP and weight logs to be brought to apt * Telephone Encounter - Sandra Martinez LPN - 08/11/2023 9:34 AM EST Lab orders placed in [facility] Management system Please arrange hospital follow up and advise of labs to be drawn Thursday/ X 3 weeks Then 2-3 days prior to Nephro apt Also to bring BP/Weight logs Please obtain fax and contact ifo so orders can be faxed and printed * Telephone Encounter - Amilcar Gonzáles RN - 08/10/2023 1:43 PM EST Patient discharged 08/07/23 from [facility] to [facility]. Nephrololgy consulted and recommend: bmp on x 3 wks, hopsital d/c appt with nephro any physician jered olson in 2 wks w/ bmp prior presentation and log of BP, wts to come along to visit. Please assist with these recommendations. Thank you documented in this encounter Plan of Treatment Upcoming Encounters Date Type Department Care Team (Late st Contact Info) Description 11/17/2023 10:45 AM EDT Imaging Radiology [facility] 1st [facility] 132 [facility] [place] [address] 11/18/2023 9:00 AM EDT Office Visit Cardiology, [address] [place] [address] Stevie Villegas, 132 [facility] [place] [address] 11/23/2023 9:30 AM EDT PulmDiagnostic Pulmonary Function Lab, [address] [address] [facility], [facility] 400 [facility] [address] 11/23/2023 10:00 AM EDT PulmDiagnostic Pulmonary Function Lab, [facility] [address] [facility], Pulm Function Room 2 [address] [place] [address] 11/26/2023 12:30 PM EDT Cardiac Studies Cardiac Studies [address] [place] [address] 11/30/2023 12:00 PM EDT Office Visit Pulmonary Medicine, [facility] 132 [facility] [place] [address] Eduardo Christine MD [address] [place] [address] 12/29/2023 3:40 PM EDT Office Visit General Internal Medicine [facility] [place] [address] [place] [address] Bridgette Celis MD [address] [place] [address] 04/19/2024 9:40 AM EST Office Visit General Internal Medicine [address] [place] [address] [place] [address] [address] Bridgette Celis MD 200 [facility] [place] [address] Scheduled Orders Name Type Priority Associated Diagnoses Orde r Schedule BASIC METABOLIC PANEL Lab Routine HTN, goal below 140/90 Every Mon, Thurs for 3 Occurrences starting 08/11/2023 until 08/11/2024, 1 completed Health Maintenance Due Date Last Done Comments Diabetic Eye Exam 1976 Cologuard 2003 Colonoscopy 2003 Colorectal Cancer Screening 2003 Fecal Occult Blood Test 2003 Sigmoidoscopy 2003 Zoster Vaccines (1 of 2) 2008 Mammogram 12/17/2022 12/17/2021, 1209/2016, 11/20/2014, Additional history exists *BASELINE EKG FOR HTN 01/19/2023 COVID-19 Vaccine ( season) 2023 DXA Scan 2023 HbA1c 07/20/2023 01/17/2023, 07/0 10/2021, 09/24/2021, Additional history exists Albumin/Creatinine Ratio 01/18/2024 01/17/2023 CKD PHOS USE SMARTSET 51960 01/18/2024 01/17/2023, 0 12/25/2019 Influenza Vaccine (FLU shot) (Season Ended) 2024 03/16/2020, 03/16/2020, 03/23/2019, Additional history exists Diabetic Foot Exam 03/23/2024 03/23/2023 GFR 04/13/2024 10/13/2023, 0309/2023, 08/15/2023, Additional history exists CKD HGB USE SMARTSET 27023 08/14/202408/14, 08/08/2023, 03/23/2023, Additional history exists DTaP,Tdap,and [...] Not on filedocumented as of this encounter Results * (ABNORMAL) BASIC METABOLIC PANEL (10/13/2023 3:47 PM EDT) BUN 80(H) 6 - 20 mg/dL 10/14/2023 12:07 AM EDT [facility] Creatinine 1.7(H) 0.5 - 1.0 mg/dL 10/14/2023 12:07 AM EDT [facility] Estimated Glomerular Filtration Rate 33(L) >=60 mL/min 10/14/2023 12:07 AM EDT [facility] Comment:eGFR is calculated b ased on the CKD-EPI 2020 equation Sodium 138 135 - 146 mmol/L 10/14/2023 12:07 AM EDT [facility] Potassium 4.9 3.5 - 5.1 mmol/L 10/14/2023 12:07 AM EDT [facility] Chloride 101 98 - 107 mmol/L 10/14/2023 12:07 AM EDT [facility] CO2 24 22 - 32 mmol/L 10/14/2023 12:07 AM EDT [facility] Anion Gap 13 7 - 15 mmol/L 10/14/2023 12:07 AM EDT [facility] Glucose 143(H) 70 - 120 mg/dL 10/14/2023 12:07 AM EDT [facility] Calcium 10.1 8.4 - 10.2 mg/dL 10/14/2023 12:07 AM EDT [facility] Blood Venous blood specimen / Unknown Venipuncture / Unknown 10/13/2023 3:47 PM EDT 10/13/2023 3:47 PM EDT Bridgette Celis MD LAB BLOOD ORDERA BLES [facility] [address] [place] [address] documented in this encounter Visit Diagnoses Diagnosis HTN, goal below 140/90- Primary Unspecified essential hypertension documented in this encounter Advance Directives Healthcare Agents on File Name Relationship Healthcare Agent Relationshi p Communication Tomi Maira Adult Child Health Care Agen t (per Health Care Power of Automobile Body Repairer Helper document) Care Teams Client Service Representative Relationship Specialty Start Date End Date Bridgette Celis MD [address] [place] [address] PCP - General Internal Medicine 09/30/23 documented as of this encounter
--- OUTSIDE RECORDS SUMMARY | 2023-11-18 13:36 | External Medical Summary | Summary of Care ---
Author Name Unknown Organization [facility] Address [address] [facility] [place] [address] Phone [phone] Care Team Providers Care Wagon Person Name Role Phone Bridgette Celis MD Primary Care Provider + Reason for Visit * Reason Onset Date Comments transfer of records 10/28/2023 dioni Blackwell Encounter Details Date Type Department Care Team (Late st Contact Info) Description 10/28/2023 Telephone Pulmonary Medicine, [facility] 132 [facility] [place] [address] Eduardo Christine MD [address] [facility] [phone] transfer of records (Beau Culp, pul) Allergies [...] Oral Tablet Extended Release 24 Hour (toPROL XL)Indications:Hand Ii Blocker yaw diastolic heart failure (HCC) Take 1 Tablet by mouth in the morning. 30 Tablet 11 03/16/2023 Active Lisinopril 2.5 MG Oral Tablet (Prinivil)Indicatio ns:Chronic diastolic heart failure (HCC),Coronary artery disease involving [place] coronary artery of [place] heart without angina pectoris,Uncontroll ed type 2 diabetes mellitus with hyperglycemia (HCC),RADHA (obstructive sleep apnea) Take 4 Tablets by mouth in the morning. 90 Tablet 3 03/23/2023 Active Lokelma 10 GM Oral Packet Take 1 Packet by mouth in the morning. 08/20/2023 Active OneTouch Delica Plus [id number] Use as directed. 400 Each 3 10/01/2023 Active Lantus SoloStar 100 UNIT/ML Subcutaneous Solution Pen-injectorIndicat ions:Type 2 diabetes mellitus with hemoglobin A1c goal of less than 7.5% ([facility]) Inject 25 Units under the skin in the morning. 15 mL 3 10/13/2023 Active OneTouch Ultra In Vitro Strip (Glucose Blood)Indications:T ype 2 diabetes mellitus with hemoglobin A1c goal of less than 7.5% (HCC) Use to check blood sugar up to 4 times daily 400 Strip 3 10/13/2023 Active Sildenafil Citrate 20 MG Oral Tablet (Revatio)Indication s:Coronary artery disease involving [place] coronary artery of [place] heart without angina pectoris,HTN, goal below 140/90,RADHA [...] HTN 01/17/2023 Coronary artery disease invo lving nightm[place] coronary artery of nightmute heart without angina pectoris 01/17/2023 Chronic diastolic [...] Next Due Pneumococcal Conjugate Vacci ne, 20-valent ([id number]) 03/23/2023 Pneumococcal Polysaccharide PPV23 (Pneumovax) 01/06/2008 Seasonal [...] Christine MD - 11/13/2023 10:31 AM EDT [facility] CD is not uploaded yet Into PACS. Please check with Radiology regarding any update. * Telephone Encounter - Paradise Pool LPN - 11/10/2023 1:19 PM EDT CD from [facility] was received and given to radiology to be scanned into the chart * Telephone Encounter - Eduardo Christine MD - 11/04/2023 7:53 AM EDT [facility] CT scan record has been updated and reviewed in PACS by myself. [facility] records are not uploaded yet. Follow-up requested. * Telephone Encounter - Sunita Hampton LPN - 10/29/2023 1:44 PM EDT Images requested from [facility] via message left on their medical records request line. Images from [facility] have been pushed to [facility]. * Telephone Encounter - Eduardo Christine MD - 10/28/2023 2:46 PM EDT Please request [facility] for 2019 CT scan chest films and 2019 PET scan films uploaded in our PACS. Please request [facility] for 2023 CT scan chest films uploaded in our PACS. documented in this encounter Plan of Treatment Upcoming Encounters Date Type Department Care Team (Late st Contact Info) Description 11/17/2023 10:45 AM EDT Imaging Radiology [address] [place] [address] 11/18/2023 9:00 AM EDT Office Visit Cardiology, [facility] 132 [facility] [place] [address] Stevie Villegas DO 132 [facility] [place] [address] 11/23/2023 9:30 AM EDT PulmDiagnostic Pulmonary Function Lab, [address] [place] [address] [facility], Pulm Function Room 1 [address] [place] [address] 11/23/2023 10:00 AM EDT PulmDiagnostic Pulmonary Function Lab, [address] [place] [address] [facility], Pulm Function Room 2 [address] [place] [address] 11/26/2023 12:30 PM EDT Cardiac Studies Cardiac Studies [address] [place] [address] 11/30/2023 12:00 PM EDT Office Visit Pulmonary Medicine, [facility] 132 [facility] [place] [address] Eduardo Christine MD [address] [place] [address] 12/29/2023 3:40 PM EDT Office Visit General Internal Medicine [facility] [address] [place], [place] [address] Bridgette Celis MD [address] [place] [address] 04/19/2024 9:40 AM EST Office Visit General Internal Medicine [facility] [place] [address] [place] [address] Bridgette Celis MD [address] [place] [address] Health Maintenance Due Date Last Done Comments [...] Ratio 01/18/2024 01/17/2023 CKD PHOS USE SMARTSET 42346 01/18/2024 01/17/2023, 0 12/25/2019 Influenza Vaccine (FLU shot) (Season Ended) 2024 03/16/2020, 03/16/2020, 03/23/2019, Additional history exists Diabetic Foot Exam 03/23/2024 03/23/2023 GFR 04/13/2024 10/13/2023, 08/13, 08/15/2023, Additional history exists CKD HGB USE SMARTSET 66261 08/14/202408/14, 08/08/2023, 03/23/2023, Additional history exists DTaP,Tdap,and [...] Agen t (per Health Care Power of Lockstitch Waistline Joiner document) Care Teams Wagon Person Relationship Specialty Start Date End Date Bridgette Celis MD 200 [facility] [place] [address] PCP - General Internal Medicine 09/30/23 documented as of this encounter
--- OUTSIDE RECORDS SUMMARY | 2023-11-18 13:36 | External Medical Summary | Summary of Care ---
Author Name Unknown Organization [facility] Address [address] [facility] [place] [address] Phone [phone] Care Team Providers Care Patent Litigation Associate Name Role Phone Bridgette Celis MD Primary Care Provider + Reason for Visit * Reason Onset Date Comments transfer of records 10/28/2023 dioni Blackwell Encounter Details Date Type Department Care Team (Late st Contact Info) Description 10/28/2023 Telephone Pulmonary Medicine, [facility] 132 [facility] [place] [address] Eduardo Christine MD [address] [facility] [phone] transfer of records (Beau Culp, pul) Allergies No known active allergiesdocumented as of this encounter (statuses as of 11/10/2023) Medications Medication Sig Dispensed Refills Start Date [...] Oral Tablet Extended Release 24 Hour (toPROL XL)Indications:Financial Planning Analyst yaw diastolic heart failure (HCC) Take 1 Tablet by mouth in the morning. 30 Tablet 11 03/16/2023 Active Lisinopril 2.5 MG Oral Tablet (Prinivil)Indicatio ns:Chronic diastolic heart failure (HCC),Coronary artery disease involving [place] coronary artery of [place] heart without angina pectoris,Uncontroll ed type 2 diabetes mellitus with hyperglycemia (HCC),RADHA (obstructive sleep apnea) Take 4 Tablets by mouth in the morning. 90 Tablet 3 03/23/2023 Active Lokelma 10 GM Oral Packet Take 1 Packet by mouth in the morning. 08/20/2023 Active OneTouch Delica Plus [id number] Use as directed. 400 Each 3 10/01/2023 Active Lantus SoloStar 100 UNIT/ML Subcutaneous Solution Pen-injectorIndicat ions:Type 2 diabetes mellitus with hemoglobin A1c goal of less than 7.5% ([facility]) Inject 25 Units under the skin in the morning. 15 mL 3 10/13/2023 Active OneTouch Ultra In Vitro Strip (Glucose Blood)Indications:T ype 2 diabetes mellitus with hemoglobin A1c goal of less than 7.5% (HCC) Use to check blood sugar up to 4 times daily 400 Strip 3 10/13/2023 Active Sildenafil Citrate 20 MG Oral Tablet (Revatio)Indication s:Coronary artery disease involving [place] coronary artery of [place] heart without angina pectoris,HTN, goal below 140/90,RADHA [...] as of this encounter (statuses as of 11/10/2023) Active Problems Problem Noted Date Diagnosed Date Body mass index (BMI) of 45.0 to 49.9 in adult 0 10/26/2023 Overview: Per Obesity protocol - Per Obesity protocol Cerebrovascular disease, arteriosclerotic, post- stroke 08/27/2023 Diabetic ulcer of left heel associated with type 2 diabetes mellitus 08/27/2023 HTN, goal below 130/80 08/27/2023 Pulmonary HTN 01/17/2023 Coronary artery disease invo lving [place] coronary artery of [place] heart without angina pectoris 01/17/2023 Chronic diastolic [...] as of this encounter (statuses as of 11/10/2023) Resolved Problems Problem Noted Date Diagnosed Date Resolved Date Stage 3a chronic kidney disease 08/27/2023 09/24/2023 Body mass index (BMI) of 40. 0 to 44.9 in adult 04/27/2023 10/28/2023 Overview: Per Obesity protocol documented as of this encounter (statuses as of 11/10/2023) Immunizations Name Administration Dates Next Due Pneumococcal Conjugate Vacci ne, 20-valent ([id number]) 03/23/2023 Pneumococcal Polysaccharide PPV23 (Pneumovax) 01/06/2008 Seasonal [...] encounter Miscellaneous Notes * Telephone Encounter - Paradise Pool LPN - 11/10/2023 1:19 PM EDT CD from [facility] was received and given to radiology to be scanned into the chart * Telephone Encounter - Eduardo Christine MD - 11/04/2023 7:[address] [facility] CT scan record has been updated and reviewed in PACS by myself. [facility] records are not uploaded yet. Follow-up requested. * Telephone Encounter - Sunita Hampton LPN - 10/29/2023 1:44 PM EDT Images requested from [facility] via message left on their medical records request line. Images from [facility] have been pushed to [facility]. * Telephone Encounter - Eduardo Christine MD - 10/28/2023 2:46 PM EDT Please request [facility] for 2019 CT scan chest films and 2019 PET scan films uploaded in our PACS. Please request [facility] for 2023 CT scan chest films uploaded in our PACS. documented in this encounter Plan of Treatment Upcoming Encounters Date Type Department Care Team (Late st Contact Info) Description 11/17/2023 10:45 AM EDT Imaging Radiology [facility] 1st [facility] [place] [address] 11/18/2023 9:00 AM EDT Office Visit Cardiology, [facility] [place] [address] Stevie Villegas O, DO 132 [facility] [place] [address] 11/23/2023 9:30 AM EDT PulmDiagnostic Pulmonary Function Lab, [facility] 400 [facility], [place] [address] Gl, Pulm Function Room 1 400 [facility] [address] 11/23/2023 10:00 AM EDT PulmDiagnostic Pulmonary Function Lab, [facility] 400 [facility], [place] [address] [facility], Pulm Function Room 2 400 [place] [address] 11/26/2023 12:30 PM EDT Cardiac Studies Cardiac Studies [address] [place] [address] 11/30/2023 12:00 PM EDT Office Visit Pulmonary Medicine, [facility] 132 [facility] [place] [address] Eduardo Christine MD [address] [place] [address] 12/29/2023 3:40 PM EDT Office Visit General Internal Medicine [facility] [address] [place] [address] Bridgette Celis MD 200 [facility] [place] [address] 04/19/2024 9:40 AM EST Office Visit General Internal Medicine [facility] [address] [place] [address] [address] Bridgette Celis MD 200 [facility] [place] [address] Health Maintenance Due Date Last Done Comments Diabetic Eye Exam 1976 Cologuard 2003 Colonoscopy 2003 Colorectal Cancer Screening 2003 Fecal Occult Blood Test 2003 Sigmoidoscopy 2003 Zoster Vaccines (1 of 2) 2008 Mammogram 12/17/2022 12/17/2021, 1209/2016, 11/20/2014, Additional history exists *BASELINE EKG FOR HTN 01/19/2023 COVID-19 Vaccine ( season) 2023 DXA Scan 2023 HbA1c 07/20/2023 01/17/2023, 10/2021, 09/24/2021, Additional history exists Albumin/Creatinine Ratio 01/18/2024 01/17/2023 CKD PHOS USE SMARTSET 76133 01/18/2024 01/17/2023, 0 12/25/2019 Influenza Vaccine (FLU shot) (Season Ended) 2024 03/16/2020, 03/16/2020, 03/23/2019, Additional history exists Diabetic Foot Exam 03/23/2024 03/23/2023 GFR 04/13/2024 10/13/2023, 08/13, 08/15/2023, Additional history exists CKD HGB USE SMARTSET 55221 08/14/202408/14, 08/08/2023, 03/23/2023, Additional history exists DTaP,Tdap,and [...] Agen t (per Health Care Power of Metallurgist Process document) Care Teams Patent Litigation Associate Relationship Specialty Start Date End Date Bridgette Celis MD 200 [facility], [place] [phone] PCP - General Internal Medicine 09/30/23 documented as of this encounter
--- OUTSIDE RECORDS SUMMARY | 2023-11-18 13:36 | External Medical Summary | Summary of Care ---
Author Name Unknown Organization [facility] Address [address] [facility] [place] [address] Phone [phone] Care Team Providers Care Blacksmith Apprentice Name Role Phone Bridgette Celis MD Primary Care Provider + Reason for Visit * Reason Onset Date Comments transfer of records 10/28/2023 dioni Blackwell Encounter Details Date Type Department Care Team (Late st Contact Info) Description 10/28/2023 Telephone Pulmonary Medicine, [facility] [address] [facility] [place] [address] Eduardo Christine MD [address] [facility] [phone] transfer of records (Beau Culp, pul) Allergies No known active allergiesdocumented as of this encounter (statuses as of 11/11/2023) Medications Medication Sig Dispensed Refills Start Date [...] Oral Tablet Extended Release 24 Hour (toPROL XL)Indications:Housekeeper Head yaw diastolic heart failure (HCC) Take 1 Tablet by mouth in the morning. 30 Tablet 11 03/16/2023 Active Lisinopril 2.5 MG Oral Tablet (Prinivil)Indicatio ns:Chronic diastolic heart failure (HCC),Coronary artery disease involving [place] coronary artery of [place] heart without angina pectoris,Uncontroll ed type 2 diabetes mellitus with hyperglycemia (HCC),RADHA (obstructive sleep apnea) Take 4 Tablets by mouth in the morning. 90 Tablet 3 03/23/2023 Active Lokelma 10 GM Oral Packet Take 1 Packet by mouth in the morning. 08/20/2023 Active OneTouch Delica Plus [id number] Use as directed. 400 Each 3 10/01/2023 Active Lantus SoloStar 100 UNIT/ML Subcutaneous Solution Pen-injectorIndicat ions:Type 2 diabetes mellitus with hemoglobin A1c goal of less than 7.5% ([facility]) Inject 25 Units under the skin in the morning. 15 mL 3 10/13/2023 Active OneTouch Ultra In Vitro Strip (Glucose Blood)Indications:T ype 2 diabetes mellitus with hemoglobin A1c goal of less than 7.5% (HCC) Use to check blood sugar up to 4 times daily 400 Strip 3 10/13/2023 Active Sildenafil Citrate 20 MG Oral Tablet (Revatio)Indication s:Coronary artery disease involving [place] coronary artery of [place] heart without angina pectoris,HTN, goal below 140/90,RADHA [...] as of this encounter (statuses as of 11/11/2023) Active Problems Problem Noted Date Diagnosed Date Body mass index (BMI) of 45.0 to 49.9 in adult 0 10/26/2023 Overview: Per Obesity protocol - Per Obesity protocol Cerebrovascular disease, arteriosclerotic, post- stroke 08/27/2023 Diabetic ulcer of left heel associated with type 2 diabetes mellitus 08/27/2023 HTN, goal below 130/80 08/27/2023 Pulmonary HTN 01/17/2023 Coronary artery disease invo lving [place] coronary artery of [place] heart without angina pectoris 01/17/2023 Chronic diastolic [...] as of this encounter (statuses as of 11/11/2023) Resolved Problems Problem Noted Date Diagnosed Date Resolved Date Stage 3a chronic kidney disease 08/27/2023 09/24/2023 Body mass index (BMI) of 40. 0 to 44.9 in adult 04/27/2023 10/28/2023 Overview: Per Obesity protocol documented as of this encounter (statuses as of 11/11/2023) Immunizations Name Administration Dates Next Due Pneumococcal Conjugate Vacci ne, 20-valent ([id number]) 03/23/2023 Pneumococcal Polysaccharide PPV23 (Pneumovax) 01/06/2008 Seasonal [...] - 11/10/2023 1:19 PM EDT CD from [facility] was received and given to radiology to be scanned into the chart * Telephone Encounter - Eduardo Christine MD - 11/04/2023 7:53 AM EDT [facility] CT scan record has been updated and reviewed in PACS by myself. [facility] records are not uploaded yet. Follow-up requested. * Telephone Encounter - Sunita Hampton LPN - 10/29/2023 1:44 PM EDT Images requested from [facility] via message left on their medical records request line. Images from [facility] have been pushed to [facility]. * Telephone Encounter - Eduardo Christine MD - 10/28/2023 2:46 PM EDT Please request [facility] for 2019 CT scan chest films and 2019 PET scan films uploaded in our PACS. Please request [facility] for 2023 CT scan chest films uploaded in our PACS. documented in this encounter Plan of Treatment Upcoming Encounters Date Type Department Care Team (Late st Contact Info) Description 11/17/2023 10:45 AM EDT Imaging Radiology [facility] [place] [address] 11/18/2023 9:00 AM EDT Office Visit Cardiology, [facility] [place] [address] Stevie Villegas O, DO 132 [facility] [place] [address] 11/23/2023 9:30 AM EDT PulmDiagnostic Pulmonary Function Lab, [facility] [address] [facility], [place] [address] Gl, Pulm Function Room 1 [facility] [address] 11/23/2023 10:00 AM EDT PulmDiagnostic Pulmonary Function Lab, [facility] [address] [facility], [place] [address] [facility], Pulm Function Room 2 400 [place] [address] 11/26/2023 12:30 PM EDT Cardiac Studies Cardiac Studies [address] [place] [address] 11/30/2023 12:00 PM EDT Office Visit Pulmonary Medicine, [facility] [address] [facility] [place] [address] Eduardo Christine MD [address] [place] [address] 12/29/2023 3:40 PM EDT Office Visit General Internal Medicine [facility] [address] [place] [address] Bridgette Celis MD [address] [facility] [place] [address] 04/19/2024 9:40 AM EST Office Visit General Internal Medicine [facility] [place] [address] [place] [address] Bridgette Celis MD [address] [facility] [place] [address] Health Maintenance Due Date Last Done Comments [...] Ratio 01/18/2024 01/17/2023 CKD PHOS USE SMARTSET 25104 01/18/2024 01/17/2023, 0 12/25/2019 Influenza Vaccine (FLU shot) (Season Ended) 2024 03/16/2020, 03/16/2020, 03/23/2019, Additional history exists Diabetic Foot Exam 03/23/2024 03/23/2023 GFR 04/13/2024 10/13/2023, 08/13, 08/15/2023, Additional history exists CKD HGB USE SMARTSET 47422 08/14/202408/14, 08/08/2023, 03/23/2023, Additional history exists DTaP,Tdap,and [...] Agen t (per Health Care Power of Solutions Market Consultant document) Care Teams Blacksmith Apprentice Relationship Specialty Start Date End Date Bridgette Celis MD [address] [facility], [place] [phone] PCP - General Internal Medicine 09/30/23 documented as of this encounter
--- OUTSIDE RECORDS SUMMARY | 2023-11-18 13:37 | External Medical Summary | Summary of Care ---
Author Name Unknown Organization [facility] Address [address] [facility] [place] [address] Phone [phone] Care Team Providers Care Alloy Weigher Name Role Phone Bridgette Celis MD Primary Care Provider + Encounter Details Date Type Department Care Team (Late st Contact Info) Description 10/28/2023 Telephone Pulmonary Medicine, [facility] [address] [facility] [place] [id number] Eduardo Christine MD [address] [facility] [phone] Allergies No known active allergiesdocumented as of this encounter (statuses as of 10/28/2023) Medications Medication Sig Dispensed Refills Start Date End Date Status Spironolactone 25 MG Oral Tablet (Aldactone)Indication s:Chronic diastolic heart failure (HCC) Take 1 Tablet by mouth in the morning. 0 01/17/2023 Active Torsemide 20 MG Oral Tablet (Demadex)Indications: Chronic diastolic heart failure (HCC) Take 2 Tablets by mouth in the morning and 2 Tablets before bedtime. 40 in the AM and 20 in the PM. 0 01/17/2023 Active Empagliflozin 25 MG Oral Tablet (Jardiance)Indication s:Type 2 diabetes mellitus with hemoglobin A1c goal of less than 7.5% (HCC) Take 1 Tablet by mouth in the morning. 30 Tablet 11 03/16/2023 Active Metoprolol Succinate ER 100 MG Oral Tablet Extended Release 24 Hour (toPROL XL)Indications:Chroni c diastolic heart failure (HCC) Take 1 Tablet by mouth in the morning. 30 Tablet 11 03/16/2023 Active metFORMIN HCl ER 500 MG Oral Tablet Extended Release 24 Hour (Glucophage XR)Indications:Uncont rolled type 2 diabetes mellitus with hyperglycemia (HCC) 1 daily with dinner x 1 wk, then inc to 2 daily--st 03/23/2023 60 Tablet 2 03/23/2023 Active Lisinopril 2.5 MG Oral Tablet (Prinivil)Indications :Chronic diastolic heart failure (HCC),Coronary artery disease involving [place] coronary artery of [place] heart without angina pectoris,Uncontrolled type 2 diabetes mellitus with hyperglycemia (HCC),RADHA (obstructive sleep apnea) Take 4 Tablets by mouth in the morning. 90 Tablet 3 03/23/2023 Active Lokelma 10 GM Oral Packet Take 1 Packet by mouth in the morning. 0 08/20/2023 Active OneTouch Delica Plus [id number] Use as directed. 400 Each 3 10/01/2023 Active Lantus SoloStar 100 UNIT/ML Subcutaneous Solution Pen-injectorIndicatio ns:Type 2 diabetes mellitus with hemoglobin A1c goal of less than 7.5% ([facility]) Inject 25 Units under the skin in the morning. 15 mL 3 10/13/2023 Active OneTouch Ultra In Vitro Strip (Glucose Blood)Indications:Typ e 2 diabetes mellitus with hemoglobin A1c goal of less than 7.5% ([facility]) Use to check blood sugar up to 4 times daily 400 Strip 3 10/13/2023 Active Sildenafil Citrate 20 MG Oral Tablet (Revatio)Indications: Coronary artery disease involving [place] coronary artery of [place] heart without angina pectoris,HTN, goal below 140/90,RADHA [...] and 1 Tablet before bedtime. 90 Tablet 0 10/26/2023 11/25/2023 Active Rosuvastatin Calcium 20 MG Oral Tablet (Crestor) Take 1 Tablet by mouth in the morning. 90 Tablet 3 10/26/2023 Active Escitalopram Oxalate 20 MG Oral Tablet (Lexapro) Take 1 Tablet by mouth in the morning. 90 Tablet 3 10/26/2023 Active Hospital, Clinic, or Other Facility Administered Medication [...] as of this encounter (statuses as of 10/28/2023) Active Problems Problem Noted Date Diagnosed Date Body mass index (BMI) of 45.0 to 49.9 in adult 0 10/26/2023 Overview: Per Obesity protocol - Per Obesity protocol Cerebrovascular disease, arteriosclerotic, post- stroke 08/27/2023 Diabetic ulcer of left heel associated with type 2 diabetes mellitus 08/27/2023 HTN, goal below 130/80 08/27/2023 Pulmonary HTN 01/17/2023 Coronary artery disease invo lving [place] coronary artery of [place] heart without angina pectoris 01/17/2023 Chronic diastolic [...] as of this encounter (statuses as of 10/28/2023) Resolved Problems Problem Noted Date Diagnosed Date Resolved Date Stage 3a chronic kidney disease 08/27/2023 09/24/2023 Body mass index (BMI) of 40. 0 to 44.9 in adult 04/27/2023 10/28/2023 Overview: Per Obesity protocol documented as of this encounter (statuses as of 10/28/2023) Immunizations Name Administration Dates Next Due Pneumococcal Conjugate Vacci ne, 20-valent ([id number]) 03/23/2023 Pneumococcal Polysaccharide PPV23 (Pneumovax) 01/06/2008 Seasonal [...] - 10/28/2023 2:46 PM EDT Please request [facility] for 2019 CT scan chest films and 2019 PET scan films uploaded in our PACS. Please request [facility] for 2023 CT scan chest films uploaded in our PACS. documented in this encounter Plan of Treatment Upcoming Encounters Date Type Department Care Team (Late st Contact Info) Description 11/18/2023 9:00 AM EDT Office Visit Cardiology, [facility] [address] [place] [address] Stevie Villegas DO [address] [place] [address] 11/23/2023 9:30 AM EDT PulmDiagnostic Pulmonary Function Lab, [facility] 400 [facility] [place] [address] [facility], Pulm Function Room 1 400 [place] [address] 11/23/2023 10:00 AM EDT PulmDiagnostic Pulmonary Function Lab, [facility] [address] [facility] [place] [address] [facility], Pulm Function Room 2 400 [place] [address] 11/26/2023 12:30 PM EDT Cardiac Studies Cardiac Studies [address] [place] [address] 11/30/2023 12:00 PM EDT Office Visit Pulmonary Medicine, [facility] [place] [address] Eduardo Christine MD [address] [place] [address] 12/29/2023 3:40 PM EDT Office Visit General Internal Medicine [facility] [address] [place] [address] Bridgette Celis MD [address] [place] [address] 04/19/2024 9:40 AM EST Office Visit General Internal Medicine [address] [place] [address] [place] [address] Bridgette Celis MD [address] [facility] [place] [address] Health Maintenance Due Date Last Done Comments [...] Ratio 01/18/2024 01/17/2023 CKD PHOS USE SMARTSET 32386 01/18/2024 01/17/2023, 0 12/25/2019 Influenza Vaccine (FLU shot) (Season Ended) 2024 03/16/2020, 03/16/2020, 03/23/2019, Additional history exists Diabetic Foot Exam 03/23/2024 03/23/2023 GFR 04/13/2024 10/13/2023, 0309/2023, 08/15/2023, Additional history exists CKD HGB USE SMARTSET 83818 08/14/202408/14, 08/08/2023, 03/23/2023, Additional history exists DTaP,Tdap,and [...] Agen t (per Health Care Power of Director Business Intelligence document) Care Teams Alloy Weigher Relationship Specialty Start Date End Date Bridgette Celis MD [address] [place] [address], [place] [address] PCP - General Internal Medicine 09/30/23 documented as of this encounter
--- OUTSIDE RECORDS SUMMARY | 2023-11-18 13:37 | External Medical Summary | Summary of Care ---
Author Name Unknown Organization [facility] Address [address] [place] [address] Phone [phone] Care Team Providers Care Curator Of Collections Name Role Phone Unavailable Primary Care Provider Unavailabl e Encounter Details Date Type Department Care Team (Latest Contact Info) Description 09/25/2023 9:25 AM EDT - 09/25/2023 11:59 PM EDT Hospital Encounter Radiology Film File [address], [place] [phone] Discharge Disposition: Home - Self Care Allergies No known active allergiesdocumented as of this encounter (statuses as of 10/29/2023) Medications Medication Sig Dispensed Refills Start Date End Date Status Spironolactone 25 MG Oral Tablet (Aldactone)Indications :Chronic diastolic heart failure (HCC) Take 1 Tablet by mouth in the morning. 0 01/17/2023 Active Torsemide 20 MG Oral Tablet (Demadex)Indications:C hronic diastolic heart failure (HCC) Take 2 Tablets by mouth in the morning and 2 Tablets before bedtime. 40 in the AM and 20 in the PM. 0 01/17/2023 Active Empagliflozin 25 MG Oral Tablet (Jardiance)Indications :Type 2 diabetes mellitus with hemoglobin A1c goal of less than 7.5% (HCC) Take 1 Tablet by mouth in the morning. 30 Tablet 11 03/16/2023 Active Metoprolol Succinate ER 100 MG Oral Tablet Extended Release 24 Hour (toPROL XL)Indications:Chronic diastolic heart failure (HCC) Take 1 Tablet by mouth in the morning. 30 Tablet 11 03/16/2023 Active metFORMIN HCl ER 500 MG Oral Tablet Extended Release 24 Hour (Glucophage XR)Indications:Uncontr olled type 2 diabetes mellitus with hyperglycemia (HCC) 1 daily with dinner x 1 wk, then inc to 2 daily--st 03/23/2023 60 Tablet 2 03/23/2023 Active Lisinopril 2.5 MG Oral Tablet (Prinivil)Indications: Chronic diastolic heart failure (HCC),Coronary artery disease involving [place] coronary artery of [place] heart without angina pectoris,Uncontrolled type 2 diabetes mellitus with hyperglycemia (HCC),RADHA (obstructive sleep apnea) Take 4 Tablets by mouth in the morning. 90 Tablet 3 03/23/2023 Active Lokelma 10 GM Oral Packet Take 1 Packet by mouth in the morning. 0 08/20/2023 Active documented as of this encounter (statuses as of 10/29/2023) Active Problems Problem Noted Date Diagnosed Date Body mass index (BMI) of 45.0 to 49.9 in adult 0 10/26/2023 Overview: Per Obesity protocol - Per Obesity protocol Cerebrovascular disease, arteriosclerotic, post- stroke 08/27/2023 Diabetic ulcer of left heel associated with type 2 diabetes mellitus 08/27/2023 HTN, goal below 130/80 08/27/2023 Pulmonary HTN 01/17/2023 Coronary artery disease invo lving [place] coronary artery of [place] heart without angina pectoris 01/17/2023 Chronic diastolic [...] as of this encounter (statuses as of 10/29/2023) Resolved Problems Problem Noted Date Diagnosed Date Resolved Date Stage 3a chronic kidney disease 08/27/2023 09/24/2023 Body mass index (BMI) of 40. 0 to 44.9 in adult 04/27/2023 10/28/2023 Overview: Per Obesity protocol documented as of this encounter (statuses as of 10/29/2023) Immunizations Name Administration Dates Next Due Pneumococcal Conjugate Vacci ne, 20-valent ([id number]) 03/23/2023 Pneumococcal Polysaccharide PPV23 (Pneumovax) 01/06/2008 Seasonal [...] on file documented as of this encounter Plan of Treatment Upcoming Encounters Date Type Department Care Team (Late st Contact Info) Description 11/18/2023 9:00 AM EDT Office Visit Cardiology, [facility] [address] [place] [address] Stevie Villegas O, DO [address] [place] [address] 11/23/2023 9:30 AM EDT PulmDiagnostic Pulmonary Function Lab, [facility] [address] [place] [id number] Gl, Pulm Function Room 1 [address] [place] [address] 11/23/2023 10:00 AM EDT PulmDiagnostic Pulmonary Function Lab, [facility] [address] [place] [address] [facility], Pulm Function Room 2 [address] [place] [address] 11/26/2023 12:30 PM EDT Cardiac Studies Cardiac Studies [address] [place] [address] 11/30/2023 12:00 PM EDT Office Visit Pulmonary Medicine, [facility] 132 [facility] [place] [address] Eduardo Christine MD [address] [facility] [address] 12/29/2023 3:40 PM EDT Office Visit General Internal Medicine [facility] [place] [address] [place] [address] Bridgette Celis MD [address] [facility] [place] [address] 04/19/2024 9:40 AM EST Office Visit General Internal Medicine [facility] [place] [address] [place] [address] Bridgette Celis MD [address] [facility] [place] [address] Health Maintenance Due Date Last Done Comments Diabetic Eye Exam 1976 Cologuard 2003 Colonoscopy 2003 Colorectal Cancer Screening 2003 Fecal Occult Blood Test 2003 Sigmoidoscopy 2003 Zoster Vaccines (1 of 2) 2008 Mammogram 12/17/2022 12/17/2021, 12/0 09/2016, 11/20/2014, Additional history exists *BASELINE EKG FOR HTN 01/19/2023 COVID-19 Vaccine ( season) 2023 DXA Scan 2023 HbA1c 07/20/2023 01/17/2023, 070 10/2021, 09/24/2021, Additional history exists Albumin/Creatinine Ratio 01/18/2024 01/17/2023 CKD PHOS USE SMARTSET 72557 01/18/2024 01/17/2023, 0 12/25/2019 Influenza Vaccine (FLU shot) (Season Ended) 2024 03/16/2020, 03/16/2020, 03/23/2019, Additional history exists Diabetic Foot Exam 03/23/2024 03/23/2023 GFR 04/13/2024 10/13/2023, 08/13, 08/15/2023, Additional history exists CKD HGB USE SMARTSET 33870 08/14/202408/14, 08/08/2023, 03/23/2023, Additional history exists DTaP,Tdap,and [...] Not on filedocumented as of this encounter Procedures Procedure Name Priority Date/Time Associated Diagnosis Comments RADIOLOGY EXAM - CT (IMAGES ONLY, NO REPORT) Routine 09/25/2023 9:25 AM EDT documented in this encounter Results * RADIOLOGY EXAM - CT (IMAGES ONLY, NO REPORT) (09/25/2023 9:25 AM EDT) 09/25/2023 9:23 AM EDT Narrative Scheduling, Silent - 10/28/2023 1:38 PM EDT This is an imaging study not interpreted or resulted by a [facility] or [facility] contracted radiologist. Eduardo Christine MD RAD CT documented in this encounter Advance Directives Healthcare Agents on File Name Relationship Healthcare Agent Relationshi p Communication Tomi Rao Adult Child Health Care Agen t (per Health Care Power of Spreading Machine Operator document)
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
--- OUTSIDE RECORDS SUMMARY | 2023-11-18 13:37 | External Medical Summary | Summary of Care ---
Author Name Unknown Organization [facility] Address [address] [place] [address] Phone [phone] Care Team Providers Care Library Sales Consultant Name Role Phone Bridgette Celis MD Primary Care Provider + Reason for Visit * Reason Onset Date Comments transfer of records 10/28/2023 dioni Blackwell Encounter Details Date Type Department Care Team (Late st Contact Info) Description 10/28/2023 Telephone Pulmonary Medicine, [facility] [address] [facility] [place] [address] Eduardo Christine MD [address] [facility] [place] [phone] transfer of records (janelle Echavarria) Allergies No known active allergiesdocumented as of this encounter (statuses as of 11/04/2023) Medications Medication Sig Dispensed Refills Start Date [...] and 20 in the PM. 01/17/2023 Active Empagliflozin 25 MG Oral Tablet [...] diastolic heart failure (HCC),Coronary artery disease involving quileute coronary artery of quileute heart without angina pectoris,Uncontrolled type 2 diabetes mellitus with hyperglycemia (HCC),RADHA (obstructive sleep apnea) Take 4 Tablets by mouth in the morning. 90 Tablet 3 03/23/2023 Active Lokelma 10 GM Oral Packet Take 1 Packet by mouth in the morning. 08/20/2023 Active OneTouch Delica Plus [id number] Use as directed. 400 Each 3 10/01/2023 Active Lantus SoloStar 100 UNIT/ML Subcutaneous Solution Pen-injectorIndicatio ns:Type 2 diabetes mellitus with hemoglobin A1c goal of less than 7.5% ([facility]) Inject 25 Units under the skin in the morning. 15 mL 3 10/13/2023 Active OneTouch Ultra In Vitro Strip (Glucose Blood)Indications:Typ e 2 diabetes mellitus with hemoglobin A1c goal of less than 7.5% ([facility]) Use to check blood sugar up to 4 times daily 400 Strip 3 10/13/2023 Active Sildenafil Citrate 20 MG Oral Tablet (Revatio)Indications: Coronary artery disease involving quileute coronary artery of quileute heart without angina pectoris,HTN, goal below 140/90,RADHA [...] 1 Tablet before bedtime. 90 Tablet 10/26/2023 11/25/2023 Active Rosuvastatin Calcium 20 MG [...] as of this encounter (statuses as of 11/04/2023) Active Problems Problem Noted Date Diagnosed Date Body mass index (BMI) of 45.0 to 49.9 in adult 0 10/26/2023 Overview: Per Obesity protocol - Per Obesity protocol Cerebrovascular disease, arteriosclerotic, post- stroke 08/27/2023 Diabetic ulcer of left heel associated with type 2 diabetes mellitus 08/27/2023 HTN, goal below 130/80 08/27/2023 Pulmonary HTN 01/17/2023 Coronary artery disease invo lving quileute coronary artery of quileute heart without angina pectoris 01/17/2023 Chronic diastolic [...] as of this encounter (statuses as of 11/04/2023) Resolved Problems Problem Noted Date Diagnosed Date Resolved Date Stage 3a chronic kidney disease 08/27/2023 09/24/2023 Body mass index (BMI) of 40. 0 to 44.9 in adult 04/27/2023 10/28/2023 Overview: Per Obesity protocol documented as of this encounter (statuses as of 11/04/2023) Immunizations Name Administration Dates Next Due Pneumococcal Conjugate Vacci ne, 20-valent ([id number]) 03/23/2023 Pneumococcal Polysaccharide PPV23 (Pneumovax) 01/06/2008 Seasonal [...] Christine MD - 11/04/2023 7:53 AM EDT [facility] CT scan record has been updated and reviewed in PACS by myself. [facility] records are not uploaded yet. Follow-up requested. * Telephone Encounter - Sunita Hampton LPN - 10/29/2023 1:44 PM EDT Images requested from [facility] via message left on their medical records request line. Images from [facility] have been pushed to [facility]. * Telephone Encounter - Eduardo Christine MD - 10/28/2023 2:46 PM EDT Please request [facility] for 2019 CT scan chest films and 2019 PET scan films uploaded in our PACS. Please request [facility] for 2023 CT scan chest films uploaded in our PACS. documented in this encounter Plan of Treatment Upcoming Encounters Date Type Department Care Team (Late st Contact Info) Description 11/18/2023 9:00 AM EDT Office Visit Cardiology, [facility] [address] [place] [address] Stevie Villegas DO [address] [place] [address] 11/23/2023 9:30 AM EDT PulmDiagnostic Pulmonary Function Lab, [facility] [address] [place] [address] [facility], Pulm Function Room 1 [address] [place] [address] 11/23/2023 10:00 AM EDT PulmDiagnostic Pulmonary Function Lab, [facility] [address] [place] [address] Gl[facility], Pulm Function Room 2 400 [facility] [place] [address] 11/26/2023 12:30 PM EDT Cardiac Studies Cardiac Studies [address] [place] [address] 11/30/2023 12:00 PM EDT Office Visit Pulmonary Medicine, [facility] [address] [facility] [place] [address] Eduardo Christine MD [address] [facility] [place] [address] 12/29/2023 3:40 PM EDT Office Visit General Internal Medicine [facility] [address] [place] [address] Bridgette Celis MD 200 [facility] [place] [address] 04/19/2024 9:40 AM EST Office Visit General Internal Medicine [facility] [address] [place] [address] Bridgette Celis MD 200 [facility] [place] [address] Health Maintenance Due Date Last Done Comments [...] Ratio 01/18/2024 01/17/2023 CKD PHOS USE SMARTSET 88719 01/18/2024 01/17/2023, 0 12/25/2019 Influenza Vaccine (FLU shot) (Season Ended) 2024 03/16/2020, 03/16/2020, 03/23/2019, Additional history exists Diabetic Foot Exam 03/23/2024 03/23/2023 GFR 04/13/2024 10/13/2023, 08/13, 08/15/2023, Additional history exists CKD HGB USE SMARTSET 87060 08/14/202408/14, 08/08/2023, 03/23/2023, Additional history exists DTaP,Tdap,and [...] Agen t (per Health Care Power of Health Promoter document) Care Teams Library Sales Consultant Relationship Specialty Start Date End Date Bridgette Celis MD 200 [facility] [place] [address] PCP - General Internal Medicine 09/30/23 documented as of this encounter
--- OUTSIDE RECORDS SUMMARY | 2023-11-18 13:37 | External Medical Summary | Summary of Care ---
Author Name Unknown Organization [facility] Address [address] [place] [address] Phone [phone] Care Team Providers Care Teaching Assistant Name Role Phone Bridgette Celis MD Primary Care Provider + Reason for Visit * Reason Onset Date Comments transfer of records 10/28/2023 dioni Blackwell Encounter Details Date Type Department Care Team (Late st Contact Info) Description 10/28/2023 Telephone Pulmonary Medicine, [facility] [address] [facility] [place] [address] Eduardo Christine MD [address] [facility] [phone] transfer of records (Beau Culp pul) Allergies No known active allergiesdocumented as [...] diastolic heart failure (HCC),Coronary artery disease involving [place] coronary artery of [place] heart without angina pectoris,Uncontrolled type 2 diabetes mellitus with hyperglycemia (HCC),RADHA (obstructive sleep apnea) Take 4 Tablets by mouth in the morning. 90 Tablet 3 03/23/2023 Active Lokelma 10 GM Oral Packet Take 1 Packet by mouth in the morning. 0 08/20/2023 Active OneTouch Delica Plus [id number] Use as directed. 400 Each 3 10/01/2023 Active Lantus SoloStar 100 UNIT/ML Subcutaneous Solution Pen-injectorIndicatio ns:Type 2 diabetes mellitus with hemoglobin A1c goal of less than 7.5% ([facility]) Inject 25 Units under the skin in the morning. 15 mL 3 10/13/2023 Active OneTouch Ultra In Vitro Strip (Glucose Blood)Indications:Typ e 2 diabetes mellitus with hemoglobin A1c goal of less than 7.5% ([facility]) Use to check blood sugar up to 4 times daily 400 Strip 3 10/13/2023 Active Sildenafil Citrate 20 MG Oral Tablet (Revatio)Indications: Coronary artery disease involving [place] coronary artery of [place] heart without angina pectoris,HTN, goal below 140/90,RADHA [...] HTN 01/17/2023 Coronary artery disease invo lving [place] coronary artery of [place] heart without angina pectoris 01/17/2023 Chronic diastolic [...] Next Due Pneumococcal Conjugate Vacci ne, 20-valent ([id number]) 03/23/2023 Pneumococcal Polysaccharide PPV23 (Pneumovax) 01/06/2008 Seasonal [...] 10/29/2023 1:44 PM EDT Images requested from [facility] via message left on their medical records request line. Images from [facility] have been pushed to [facility]. * Telephone Encounter - Eduardo Christine MD - 10/28/2023 2:46 PM EDT Please request [facility] for 2018 CT scan chest films and 2019 PET scan films uploaded in our PACS. Please request [facility] for 2023 CT scan chest films uploaded in our PACS. documented in this encounter Plan of Treatment Upcoming Encounters Date Type Department Care Team (Late st Contact Info) Description 11/18/2023 9:00 AM EDT Office Visit Cardiology, [facility] [address] [place] [address] Stevie Villegas, [address] [place] [address] 11/23/2023 9:30 AM EDT PulmDiagnostic Pulmonary Function Lab, [address] [place] [address] [facility], Pulm Function Room 1 [address] [place] [address] 11/23/2023 10:00 AM EDT PulmDiagnostic Pulmonary Function Lab, [facility] [address] [facility] [place] [address] [facility], Pulm Function Room 2 [facility] [place] [address] 11/26/2023 12:30 PM EDT Cardiac Studies Cardiac Studies [address] [place] [id number] 11/30/2023 12:00 PM EDT Office Visit Pulmonary Medicine, [facility] [address] [place] [address] Eduardo Christine MD [address] [place] [address] [place] [address] 12/29/2023 3:40 PM EDT Office Visit General Internal Medicine [facility] [address] [place] [address] Bridgette Celis MD 200 [facility] [place] [address] 04/19/2024 9:40 AM EST Office Visit General Internal Medicine [facility] [address] [place] [address] Bridgette Celis MD 200 [facility] [place] [address] Health Maintenance Due Date Last Done Comments [...] Ratio 01/18/2024 01/17/2023 CKD PHOS USE SMARTSET 25692 01/18/2024 01/17/2023, 0 12/25/2019 Influenza Vaccine (FLU shot) (Season Ended) 2024 03/16/2020, 03/16/2020, 03/23/2019, Additional history exists Diabetic Foot Exam 03/23/2024 03/23/2023 GFR 04/13/2024 10/13/2023, 08/13, 08/15/2023, Additional history exists CKD HGB USE SMARTSET 27522 08/14/202408/14, 08/08/2023, 03/23/2023, Additional history exists DTaP,Tdap,and [...] Agents on File Name Relationship Healthcare Agent [facility] Communication Tomi Rao Adult Child Health Care Agen t (per Health Care Power of Cardiopulmonary Technologist Chief document) Care Teams Teaching Assistant Relationship Specialty Start Date End Date Bridgette Celis MD [address] [facility] [place] [address] PCP - General Internal Medicine 09/30/23 documented as of this encounter
--- OUTSIDE RECORDS SUMMARY | 2023-11-18 13:37 | External Medical Summary | Summary of Care ---
Author Name Unknown Organization [facility] Address [address] [place] [address] Phone [phone] Care Team Providers Care Quarry Plug And Feather Driller Name Role Phone Bridgette Celis MD Primary Care Provider + Reason for Visit * Reason Onset Date Comments Referral 10/30/2023 MTDM d/c (DM) Encounter Details Date Type Department Care Team (Late st Contact Info) Description 10/30/2023 Telephone Pharmacy Call Center [phone] [place] [address] Pharmacist2, [facility] [address] [place] [address] Referral (MTD d/c (DM)) Allergies No known active allergiesdocumented as of this encounter (statuses as of 10/30/2023) Medications Medication Sig Dispensed Refills Start Date [...] diastolic heart failure (HCC),Coronary artery disease involving yomb[place] shosh[place] coronary artery of yomb[place] shoshone heart without angina pectoris,Uncontrolled type 2 diabetes mellitus with hyperglycemia (HCC),RADHA (obstructive sleep apnea) Take 4 Tablets by mouth in the morning. 90 Tablet 3 03/23/2023 Active Lokelma 10 GM Oral Packet Take 1 Packet by mouth in the morning. 0 08/20/2023 Active OneTouch Delica Plus [id number] Use as directed. 400 Each 3 10/01/2023 Active Lantus SoloStar 100 UNIT/ML Subcutaneous Solution Pen-injectorIndicatio ns:Type 2 diabetes mellitus with hemoglobin A1c goal of less than 7.5% ([facility]) Inject 25 Units under the skin in the morning. 15 mL 3 10/13/2023 Active OneTouch Ultra In Vitro Strip (Glucose Blood)Indications:Typ e 2 diabetes mellitus with hemoglobin A1c goal of less than 7.5% ([facility]) Use to check blood sugar up to 4 times daily 400 Strip 3 10/13/2023 Active Sildenafil Citrate 20 MG Oral Tablet (Revatio)Indications: Coronary artery disease involving [place]osh[place] coronary artery of [place] shosh[place] heart without angina pectoris,HTN, goal below 140/90,RADHA [...] as of this encounter (statuses as of 10/30/2023) Active Problems Problem Noted Date Diagnosed Date Body mass index (BMI) of 45.0 to 49.9 in adult 0 10/26/2023 Overview: Per Obesity protocol - Per Obesity protocol Cerebrovascular disease, arteriosclerotic, post- stroke 08/27/2023 Diabetic ulcer of left heel associated with type 2 diabetes mellitus 08/27/2023 HTN, goal below 130/80 08/27/2023 Pulmonary HTN 01/17/2023 Coronary artery disease invo lving [place]osh[place] coronary artery of [place]osh[place] heart without angina pectoris 01/17/2023 Chronic diastolic [...] as of this encounter (statuses as of 10/30/2023) Resolved Problems Problem Noted Date Diagnosed Date Resolved Date Stage 3a chronic kidney disease 08/27/2023 09/24/2023 Body mass index (BMI) of 40. 0 to 44.9 in adult 04/27/2023 10/28/2023 Overview: Per Obesity protocol documented as of this encounter (statuses as of 10/30/2023) Immunizations Name Administration Dates Next Due Pneumococcal Conjugate Vacci ne, 20-valent ([id number]) 03/23/2023 Pneumococcal Polysaccharide PPV23 (Pneumovax) 01/06/2008 Seasonal [...] encounter Miscellaneous Notes * Telephone Encounter - Holly Son, linux system administrator - 10/30/2023 10:27 AM EDT Maricel has not contacted the clinic to schedule/reschedule an appointment for diabetes management per referral from PCP despite multiple attempts to do so by our team. Patient is discharged from [facility] services at this time. Thank you, Holly Son Caving Guide [facility] 10/30/2023,10:27 AM documented in this encounter Plan of Treatment Upcoming Encounters Date Type Department Care Team (Late st Contact Info) Description 11/18/2023 9:00 AM EDT Office Visit Cardiology, [facility] [address] [facility] [place] [address] Stevie Villegas, [address] [place] [address] 11/23/2023 9:30 AM EDT PulmDiagnostic Pulmonary Function Lab, [address] [address] [facility], Pulm Function Room 1 [address] [place] [address] 11/23/2023 10:00 AM EDT PulmDiagnostic Pulmonary Function Lab, [address] [address] [facility], Pulm Function Room [address] [place] [address] 11/26/2023 12:30 PM EDT Cardiac Studies Cardiac Studies [address] [place] [address] 11/30/2023 12:00 PM EDT Office Visit Pulmonary Medicine, [facility] [address] [facility] [place] [address] Eduardo Christine MD [address] [place] [address] 12/29/2023 3:40 PM EDT Office Visit General Internal Medicine [place] [place] [address] [place], [place] [address] Bridgette Celis MD [address] [place] [address] 04/19/2024 9:40 AM EST Office Visit General Internal Medicine [facility] [address] [place] [address] Bridgette Celis MD [address] [facility] [place], [place] [address] Health Maintenance Due Date Last Done Comments [...] Ratio 01/18/2024 01/17/2023 CKD PHOS USE SMARTSET 02287 01/18/2024 01/17/2023, 0 12/25/2019 Influenza Vaccine (FLU shot) (Season Ended) 2024 03/16/2020, 03/16/2020, 03/23/2019, Additional history exists Diabetic Foot Exam 03/23/2024 03/23/2023 GFR 04/13/2024 10/13/2023, 08/13, 08/15/2023, Additional history exists CKD HGB USE SMARTSET 37238 08/14/202408/14, 08/08/2023, 03/23/2023, Additional history exists DTaP,Tdap,and [...] Agen t (per Health Care Power of Diesel Automotive Technician document) Care Teams Quarry Plug And Feather Driller Relationship Specialty Start Date End Date Bridgette Celis MD 200 [facility] [place] [address] PCP - General Internal Medicine 09/30/23 documented as of this encounter
--- OUTSIDE RECORDS SUMMARY | 2023-11-18 13:38 | External Medical Summary | Summary of Care ---
Author Name Unknown Organization [facility] Address [address] [place] [address] Phone [phone] Care Team Providers Care Parts Identification Technician Name Role Phone Bridgette Celis MD Primary Care Provider + Reason for Visit * Reason Onset Date Comments Medication Refill 10/24/2023 Encounter Details Date Type Department Care Team (Late st Contact Info) Description 10/24/2023 Refill General Internal Medicine [facility] [address] [place] [address] Bridgette Celis MD [address] [place] [address] Allergies No known active allergiesdocumented as of this encounter (statuses as of 10/26/2023) Medications Medication Sig Dispensed Refills Start Date [...] 01/17/2023 Active Empagliflozin 25 MG Oral Tablet (Jardiance)Indicati ons:Type 2 diabetes mellitus with hemoglobin A1c goal of less than 7.5% (HCC) Take 1 Tablet by mouth in the morning. 30 Tablet 11 03/16/2023 Active Additional Information Patient not taking.Reported on 10/13/2023 Metoprolol Succinate ER 100 MG Oral Tablet Extended Release 24 Hour (toPROL XL)Indications:Plastics And Composites Inspector yaw diastolic heart failure (HCC) Take 1 Tablet by mouth in the morning. 30 Tablet 11 03/16/2023 Active metFORMIN HCl ER 500 MG Oral Tablet Extended Release 24 Hour (Glucophage XR)Indications:Unco ntrolled type 2 diabetes mellitus with hyperglycemia (HCC) 1 daily with dinner x 1 wk, then inc to 2 daily--st 03/23/2023 60 Tablet 2 03/23/2023 Active Additional Information Patient not taking.Reported on 10/13/2023 Lisinopril 2.5 MG Oral Tablet (Prinivil)Indicatio ns:Chronic diastolic heart failure (HCC),Coronary artery disease involving [place] coronary artery of [place] heart without angina pectoris,Uncontroll ed type 2 diabetes mellitus with hyperglycemia (HCC),RADHA (obstructive sleep apnea) Take 4 Tablets by mouth in the morning. 90 Tablet 3 03/23/2023 Active Lokelma 10 GM Oral Packet Take 1 Packet by mouth in the morning. 0 08/20/2023 Active OneTouch Delica Plus [id number] Use as directed. 400 Each 3 10/01/2023 Active Lantus SoloStar 100 UNIT/ML Subcutaneous Solution Pen-injectorIndicat ions:Type 2 diabetes mellitus with hemoglobin A1c goal of less than 7.5% (HCC) Inject 25 Units under the skin in the morning. 15 mL 3 10/13/2023 Active OneTouch Ultra In Vitro Strip (Glucose Blood)Indications:T ype 2 diabetes mellitus with hemoglobin A1c goal of less than 7.5% (HCC) Use to check blood sugar up to 4 times daily 400 Strip 3 10/13/2023 Active Sildenafil Citrate 20 MG Oral Tablet (Revatio)Indication s:Coronary artery disease involving [place] coronary artery of [place] heart without angina pectoris,HTN, goal below 140/90,RADHA [...] Tablet before bedtime. 90 Tablet 0 10/26/2023 4 Active Escitalopram Oxalate 20 MG Oral Tablet (Lexapro) Take 1 Tablet by mouth in the morning. 0 09/15/2022 4 Discontinue d(Refill) hydrALAZINE HCl 100 MG Oral Tablet Take 1 Tablet by mouth in the morning and 1 Tablet at noon and 1 Tablet before bedtime. 0 01/17/2023 4 Discontinue d(Refill) amLODIPine Besylate 10 MG Oral Tablet (Norvasc) TAKE 1 TABLET BY MOUTH ONCE DAILY 30 Tablet 3 03/08/2023 4 Discontinue d(Refill) Rosuvastatin Calcium 20 MG Oral Tablet (Crestor) Take 1 Tablet by mouth in the morning. 90 Tablet 3 08/27/2023 4 Discontinue d(Refill) documented as of this encounter (statuses as of 10/26/2023) Active Problems Problem Noted Date Diagnosed Date Cerebrovascular disease, arteriosclerotic, post- stroke 08/27/2023 Diabetic ulcer of left heel associated with type 2 diabetes mellitus 08/27/2023 HTN, goal below 130/80 08/27/2023 Body mass index (BMI) of 40.0 to 44.9 in adult 1 06/27/2022 Overview: Per Obesity protocol Pulmonary HTN 01/17/2023 Coronary artery disease invo lving [place] coronary artery of [place] heart without angina pectoris 01/17/2023 Chronic diastolic [...] as of this encounter (statuses as of 10/26/2023) Resolved Problems Problem Noted Date Diagnosed Date Resolved Date Stage 3a chronic kidney disease 08/27/2023 09/24/2023 documented as of this encounter (statuses as of 10/26/2023) Immunizations Name Administration Dates Next Due Pneumococcal Conjugate Vacci ne, 20-valent ([id number]) 03/23/2023 Pneumococcal Polysaccharide PPV23 (Pneumovax) 01/06/2008 Seasonal [...] encounter Miscellaneous Notes * Telephone Encounter - Bridgette Celis MD - 10/26/2023 1:55 PM EDTSigned Prescriptions: Disp Refills amLODIPine Besylate 10 MG Oral Tablet (Nor*90 Tab*3 Sig: Take 1 Tablet by mouth in the morning. Authorizing Provider: BRIDGETTE CELIS hydrALAZINE HCl 100 MG Oral Tablet 90 Tab*0 Sig: Take 1 Tablet by mouth in the morning and 1 Tablet at noon and 1 Tablet before bedtime. Authorizing Provider: BRIDGETTE CELIS * Telephone Encounter - Johana Ramirez LPN - 10/26/2023 8:47 AM EDT Pending Prescriptions: Disp Refills amLODIPine Besylate 10 MG Oral Tablet (Nor*90 Tab*3 Sig: Take 1 Tablet by mouth in the morning. hydrALAZINE HCl 100 MG Oral Tablet 90 Tab*3 Sig: Take 1 Tablet by mouth in the morning and 1 Tablet at noon and 1 Tablet before bedtime. * Telephone Encounter - Johana Ramirez LPN - 10/26/2023 8:47 AM EDT Pending Prescriptions: Disp Refills amLODIPine Besylate 10 MG Oral Tablet (No*90 Tab*3 Sig: Take 1 Tablet by mouth in the morning. hydrALAZINE HCl 100 MG Oral Tablet 90 Tab*3 Sig: Take 1 Tablet by mouth in the morning and 1 Tablet at noon and 1 Tablet before bedtime. Last Visit: 10/13/2023 (in office), Visit date not found (telemedicine) Next Visit: 12/29/2023 Last date the medication was ordered: 03/08/2023 Patient Active Problem List Diagnosis Code Pulmonary HTN ([facility]) I27.20 Coronary artery disease involving [place] coronary artery of [place] heart without angina pectoris I25.10 Chronic diastolic heart failure ([facility]) I50.32 Lymphedema I89.0 HTN, goal below 140/90 I10 Type 2 diabetes mellitus with hemoglobin A1c goal of less than 7.5% ([facility]) E11.9 Diabetic retinopathy associated with type 2 diabetes mellitus ([facility]) E11.319 Hidradenitis suppurativa L73.2 RADHA (obstructive sleep apnea) G47.33 Kidney disease, chronic, stage III (GFR 30-59 ml/min) ([facility]) N18.30 BERTA (generalized anxiety disorder) F41.1 Recurrent major depressive disorder, in full remission ([facility]) F33.42 Body mass index (BMI) of 40.0 to 44.9 in adult ([facility]) Z68.41 Cerebrovascular disease, arteriosclerotic, post-stroke I67.2, Z86.73 Diabetic ulcer of left heel associated with type 2 diabetes mellitus ([facility]) E11.621, L97.429 HTN, goal below 130/80 I10 Labs: Lab Results Component Value Date/Time CREATININE - [facility] 1.7 (H) 10/13/2023 03:47 PM CREATININE, RANDOM URINE - [facility] 83 01/17/2023 09:29 AM CREATININE-OUTSIDE LAB 1.8 (H) 10/25/2021 09:58 AM Lab Results Component Value Date/Time POTASSIUM - [facility] 4.9 10/13/2023 03:47 PM POTASSIUM-OUTSIDE LAB 4.4 10/25/2021 09:58 AM Lab Results Component Value Date/Time TSH - [facility] 2.45 01/17/2023 09:29 AM Lab Results Component Value Date/Time LDL CHOLESTEROL (CALCULATED) - [facility] 108 01/17/2023 09:29 AM Lab Results Component Value Date/Time ALT - [facility] 17 01/17/2023 09:29 AM Hemoglobin AIC Results: Lab Results Component Value Date/Time HEMOGLOBIN A1C - [facility] 13.3 (H) 01/17/2023 09:29 AM * Telephone Encounter - Ion Tran CPhT - 10/24/2023 10:28 AM EDT Patient calling to request a refill on hydrALAZINE & amLODIPine . Medication was last prescribed by DARY Pereira but patient is asking if PCP can take over the medication. Please advise if this is appropriate and send to [id number] [address] if agreeable. Thank you, Angel Tran ([place]) Sheet Metal Erector III [facility] ([facility]) (formerly Telepharmacy) 10/24/2023, 10:30 AM documented in this encounter Plan of Treatment Upcoming Encounters Date Type Department Care Team (Late st Contact Info) Description 10/28/2023 1:00 PM EDT Office Visit Pulmonary Medicine, [facility] [address] [facility] [place] [address] Eduardo Christine MD [address] [place] [address] 11/18/2023 9:00 AM EDT Office Visit Cardiology, [facility] [address] [facility] [place] [address] Stevie Villegas DO [address] [facility] [place] [address] 12/29/2023 3:40 PM EDT Office Visit General Internal Medicine [facility] [address] [place] [address] Bridgette Celis MD [address] [place] [address] 04/19/2024 9:40 AM EST Office Visit General Internal Medicine [facility] [place] [address] [place] [address] Bridgette Celis MD [address] [facility] [place] [address] Health Maintenance Due Date Last Done Comments [...] Ratio 01/18/2024 01/17/2023 CKD PHOS USE SMARTSET 68445 01/18/2024 01/17/2023, 0 12/25/2019 Influenza Vaccine (FLU shot) (Season Ended) 2024 03/16/2020, 03/16/2020, 03/23/2019, Additional history exists Diabetic Foot Exam 03/23/2024 03/23/2023 GFR 04/13/2024 10/13/2023, 08/13, 08/15/2023, Additional history exists CKD HGB USE SMARTSET 34924 08/14/202408/14, 08/08/2023, 03/23/2023, Additional history exists DTaP,Tdap,and [...] Agen t (per Health Care Power of Location Man document) Care Teams Parts Identification Technician Relationship Specialty Start Date End Date Bridgette Celis MD [address] [place] [address] PCP - General Internal Medicine 09/30/23 documented as of this encounter
--- OUTSIDE RECORDS SUMMARY | 2023-11-18 13:38 | External Medical Summary | Summary of Care ---
Author Name Unknown Organization [facility] Address [address] [facility] [facility] [place] [address] Phone [phone] Care Team Providers Care Civil Engineering Teacher Name Role Phone Bridgette Celis MD Primary Care Provider + Reason for Visit * Reason Onset Date Comments Appointment 10/28/2023 Encounter Details Date Type Department Care Team (Late st Contact Info) Description 10/28/2023 Telephone Pulmonary Medicine, [facility] [address] [facility] [place] [id number] Eduardo Christine MD [address] [facility] [phone] Appointment Allergies No known active allergiesdocumented as of [...] diastolic heart failure (HCC),Coronary artery disease involving [place] coronary artery of [place] heart without angina pectoris,Uncontrolled type 2 diabetes mellitus with hyperglycemia (HCC),RADHA (obstructive sleep apnea) Take 4 Tablets by mouth in the morning. 90 Tablet 3 03/23/2023 Active Lokelma 10 GM Oral Packet Take 1 Packet by mouth in the morning. 0 08/20/2023 Active OneTouch Delica Plus [id number] Use as directed. 400 Each 3 10/01/2023 Active Lantus SoloStar 100 UNIT/ML Subcutaneous Solution Pen-injectorIndicatio ns:Type 2 diabetes mellitus with hemoglobin A1c goal of less than 7.5% ([facility]) Inject 25 Units under the skin in the morning. 15 mL 3 10/13/2023 Active OneTouch Ultra In Vitro Strip (Glucose Blood)Indications:Typ e 2 diabetes mellitus with hemoglobin A1c goal of less than 7.5% ([facility]) Use to check blood sugar up to 4 times daily 400 Strip 3 10/13/2023 Active Sildenafil Citrate 20 MG Oral Tablet (Revatio)Indications: Coronary artery disease involving [place] coronary artery of [place] heart without angina pectoris,HTN, goal below 140/90,RADHA [...] HTN 01/17/2023 Coronary artery disease invo lving qagan [place] coronary artery of qagan [place] heart without angina pectoris 01/17/2023 Chronic diastolic [...] Next Due Pneumococcal Conjugate Vacci ne, 20-valent ([id number]) 03/23/2023 Pneumococcal Polysaccharide PPV23 (Pneumovax) 01/06/2008 Seasonal [...] encounter Miscellaneous Notes * Telephone Encounter - Ninoska Son OSA - 10/28/2023 1:53 PM EDT Please call pt to schedule PET scan documented in this encounter Plan of Treatment Upcoming Encounters Date Type Department Care Team (Late st Contact Info) Description 11/18/2023 9:00 AM EDT Office Visit Cardiology, [facility] [address] [place] [address] Stevie Villegas, [address] [place] [address] 11/23/2023 9:30 AM EDT PulmDiagnostic Pulmonary Function Lab, [facility] [address] [facility] [address] [facility], Pulm Function Room 1 [address] [facility] [address] 11/23/2023 10:00 AM EDT PulmDiagnostic Pulmonary Function Lab, [facility] [address] [facility] [place] [address] [facility], Pulm Function Room 2 [address] [place] [address] 11/26/2023 12:30 PM EDT Cardiac Studies Cardiac Studies [address] [place] [address] 11/30/2023 12:00 PM EDT Office Visit Pulmonary Medicine, [facility] [address] [place] [address] Eduardo Christine MD [address] [place] [address] 12/29/2023 3:40 PM EDT Office Visit General Internal Medicine [address] [place] [address] [place] [address] Bridgette Celis MD [address] [facility] [place] [address] 04/19/2024 9:40 AM EST Office Visit General Internal Medicine [facility] [address] [place], [place] [address] Bridgette Celis MD [address] [facility] [place] [address] Health Maintenance Due Date Last Done Comments [...] Ratio 01/18/2024 01/17/2023 CKD PHOS USE SMARTSET 07733 01/18/2024 01/17/2023, 0 12/25/2019 Influenza Vaccine (FLU shot) (Season Ended) 2024 03/16/2020, 03/16/2020, 03/23/2019, Additional history exists Diabetic Foot Exam 03/23/2024 03/23/2023 GFR 04/13/2024 10/13/2023, 08/13, 08/15/2023, Additional history exists CKD HGB USE SMARTSET 39600 08/14/202408/14, 08/08/2023, 03/23/2023, Additional history exists DTaP,Tdap,and [...] Agen t (per Health Care Power of Service Advocate Contact document) Care Teams Civil Engineering Teacher Relationship Specialty Start Date End Date Bridgette Celis MD [address] [place] [address] [place] [address] PCP - General Internal Medicine 09/30/23 documented as of this encounter
--- OUTSIDE RECORDS SUMMARY | 2023-11-18 13:38 | External Medical Summary | Summary of Care ---
Author Name Unknown Organization [facility] Address [address] [place] [address] Phone [phone] Care Team Providers Care Medical Field Representative Name Role Phone Flory Celis MD Primary Care Provider + Reason for Visit * Reason Onset Date Comments Medication Refill 10/24/2023 Encounter Details Date Type Department Care Team (Late st Contact Info) Description 10/24/2023 Refill General Internal Medicine [facility] [address] [facility] [address] Flory Celis MD [address] [facility] [place] [address] Allergies No known active allergiesdocumented as of this encounter (statuses as of 10/26/2023) Medications Medication Sig Dispensed Refills Start Date End Date Status Escitalopram Oxalate 20 MG Oral Tablet (Lexapro) Take 1 Tablet by mouth in the morning. 0 09/15/2022 Active hydrALAZINE HCl 100 MG Oral Tablet Take 1 Tablet by mouth in the morning and 1 Tablet at noon and 1 Tablet before bedtime. 0 01/17/2023 Active Spironolactone 25 MG Oral Tablet (Aldactone)Indicati ons:Chronic diastolic heart failure (HCC) Take 1 Tablet by mouth in the morning. 0 01/17/2023 Active Torsemide 20 MG Oral Tablet (Demadex)Indication s:Chronic diastolic heart failure (HCC) Take 2 Tablets by mouth in the morning and 2 Tablets before bedtime. 40 in the AM and 20 in the PM. 0 01/17/2023 Active amLODIPine Besylate 10 MG Oral Tablet (Norvasc) TAKE 1 TABLET BY MOUTH ONCE DAILY 30 Tablet 3 03/08/2023 Active Empagliflozin 25 MG Oral Tablet (Jardiance)Indicati ons:Type 2 diabetes mellitus with hemoglobin A1c goal of less than 7.5% (HCC) Take 1 Tablet by mouth in the morning. 30 Tablet 11 03/16/2023 Active Additional Information Patient not taking.Reported on 10/13/2023 Metoprolol Succinate ER 100 MG Oral Tablet Extended Release 24 Hour (toPROL XL)Indications:Tableman yaw diastolic heart failure (HCC) Take 1 [...] diastolic heart failure (HCC),Coronary artery disease involving [place] coronary artery of [place] heart without angina pectoris,Uncontroll ed type 2 diabetes mellitus with hyperglycemia (HCC),RADHA (obstructive sleep apnea) Take 4 Tablets by mouth in the morning. 90 Tablet 3 03/23/2023 Active Lokelma 10 GM Oral Packet Take 1 Packet by mouth in the morning. 0 08/20/2023 Active OneTouch Delica Plus [id number] Use as directed. 400 Each 3 10/01/2023 [...] Oral Tablet (Revatio)Indication s:Coronary artery disease involving [place] coronary artery of [place] heart without angina pectoris,HTN, goal below 140/90,RADHA (obstructive sleep apnea),Chronic diastolic heart failure (HCC) Take 1 Tablet by mouth in the morning and 1 Tablet at noon and 1 Tablet before bedtime. 90 Tablet 2 10/13/2023 Active Rosuvastatin Calcium 20 MG Oral Tablet (Crestor) Take 1 Tablet by mouth in the morning. 90 Tablet 3 10/26/2023 Active Rosuvastatin Calcium 20 MG Oral Tablet (Crestor) Take 1 Tablet by mouth in the morning. 90 Tablet 3 08/27/2023 Discontinue d(Refill) documented as of this encounter [...] HTN 01/17/2023 Coronary artery disease invo lving [place] coronary artery of [place] heart without angina pectoris 01/17/2023 Chronic diastolic [...] Next Due Pneumococcal Conjugate Vacci ne, 20-valent ([id number]) 03/23/2023 Pneumococcal Polysaccharide PPV23 (Pneumovax) 01/06/2008 Seasonal [...] encounter Miscellaneous Notes * Telephone Encounter - Marielle Grimaldo RPh - 10/26/2023 1:04 PM EDTSigned Prescriptions: Disp Refills Rosuvastatin Calcium 20 MG Oral Tablet (Cr*90 Tab*3 Sig: Take 1 Tablet by mouth in the morning. Authorizing Provider: FLORY CELIS Ordering User: MARIELLE GRIMALDO Electronically signed by Marielle Grimaldo [facility] at 10/26/2023 1:04 PM EDT * Telephone Encounter - Ion Tran CPhT - 10/24/2023 10:32 AM EDT Please reroute Rx to [id number] [address] Pending Prescriptions: Disp Refills Rosuvastatin Calcium 20 MG Oral Tablet (C*90 Tab*3 Sig: Take 1 Tablet by mouth in the morning. Last Visit: 10/13/2023 (in office), Visit date not found (telemedicine) 12/29/2023 If no future appointments scheduled, and last appointment is greater than a year ago, please schedule patient for a follow-up appointment Last date the medication was ordered: 08/27/2023 Patient Phone Numbers Labs: Lab Results Component Value Date/Time CREAT 1.7 (H) 10/13/2023 03:47 PM CREAT 1.8 (H) 10/25/2021 09:58 AM POTASSIUM 4.9 10/13/2023 03:47 PM POTASSIUM 4.4 10/25/2021 09:58 AM TSH 2.45 01/17/2023 09:29 AM LDLCALC 108 01/17/2023 09:29 AM ALT 17 01/17/2023 09:29 AM HGBA1C 13.3 (H) 01/17/2023 09:29 AM HGBA1C 11.5 (H) 12/17/2021 10:00 AM Thank you, Angel Tran ([facility]) Route Sales Specialist III [facility] ([facility]) (formerly Telepharmacy) 10/24/2023, 10:33 AM documented in this encounter Plan of Treatment Upcoming Encounters Date Type Department Care Team (Late st Contact Info) Description 10/28/2023 1:00 PM EDT Office Visit Pulmonary Medicine, [facility] [address] [place] [address] Eduardo Christine MD [address] [place] [address] 11/18/2023 9:00 AM EDT Office Visit Cardiology, [facility] [address] [facility] [place] [address] Stevie Villegas, DO [address] [place] [address] 12/29/2023 3:40 PM EDT Office Visit General Internal Medicine [facility] [address] [place] [address] Flory Celis MD [address] [place] [address] 04/19/2024 9:40 AM EST Office Visit General Internal Medicine [facility] [address] [place] [address] Flory Celis MD [address] [facility] [place] [address] Health Maintenance Due Date Last Done Comments [...] Ratio 01/18/2024 01/17/2023 CKD PHOS USE SMARTSET 33343 01/18/2024 01/17/2023, 0 12/25/2019 Influenza Vaccine (FLU shot) (Season Ended) 2024 03/16/2020, 03/16/2020, 03/23/2019, Additional history exists Diabetic Foot Exam 03/23/2024 03/23/2023 GFR 04/13/2024 10/13/2023, 08/13, 08/15/2023, Additional history exists CKD HGB USE SMARTSET 97049 08/14/202408/14, 08/08/2023, 03/23/2023, Additional history exists DTaP,Tdap,and [...] Agen t (per Health Care Power of Leaded Glass Installer document) Care Teams Medical Field Representative Relationship Specialty Start Date End Date Flory Celis MD [address] [facility] [place] [address] PCP - General Internal Medicine 09/30/23 documented as of this encounter
--- OUTSIDE RECORDS SUMMARY | 2023-11-18 13:38 | External Medical Summary | Summary of Care ---
Author Name Unknown Organization [facility] Address [address] [facility] [place] [address] Phone [phone] Care Team Providers Care Senior Applications Architect Name Role Phone Bridgette Celis MD Primary Care Provider + Encounter Details Date Type Department Care Team (Late st Contact Info) Description 09/25/2023 Orders Only Pulmonary Medicine [facility] Lynne [address] [place] [phone] Eduardo Christine MD [address] [place] [address] Allergies No known active allergiesdocumented as of [...] diastolic heart failure (HCC),Coronary artery disease involving [place] coronary artery of [place] heart without angina pectoris,Uncontrolled type 2 diabetes [...] HTN 01/17/2023 Coronary artery disease invo lving [place] coronary artery of [place] heart without angina pectoris 01/17/2023 Chronic diastolic [...] Next Due Pneumococcal Conjugate Vacci ne, 20-valent ([id number]) 03/23/2023 Pneumococcal Polysaccharide PPV23 (Pneumovax) 01/06/2008 Seasonal [...] 11/18/2023 9:00 AM EDT Office Visit Cardiology, [facility] [address] [place] [address] Stevie Villegas, DO [address] [place] [address] 11/23/2023 9:30 AM EDT PulmDiagnostic Pulmonary Function Lab, [facility] [address] [place] [address] Gl, Pulm Function Room 1 400 [facility] [place] [address] 11/23/2023 10:00 AM EDT PulmDiagnostic Pulmonary Function Lab, [facility] [address] [facility] [place] [address] [facility], Pulm Function Room 2 400 [facility] [address] 11/26/2023 12:30 PM EDT Cardiac Studies Cardiac Studies [address] [place] [address] 11/30/2023 12:00 PM EDT Office Visit Pulmonary Medicine, [facility] [address] [facility] [place] [address] Eduardo Christine MD [address] [facility] [address] 12/29/2023 3:40 PM EDT Office Visit General Internal Medicine [facility] [address] [place] [address] Bridgette Celis MD [address] [place] [address] 04/19/2024 9:40 AM EST Office Visit General Internal Medicine [facility] [address] [place] [address] Bridgette Celis MD [address] [place] [address] Health Maintenance Due Date Last Done Comments [...] Ratio 01/18/2024 01/17/2023 CKD PHOS USE SMARTSET 76901 01/18/2024 01/17/2023, 0 12/25/2019 Influenza Vaccine (FLU shot) (Season Ended) 2024 03/16/2020, 03/16/2020, 03/23/2019, Additional history exists Diabetic Foot Exam 03/23/2024 03/23/2023 GFR 04/13/2024 10/13/2023, 08/13, 08/15/2023, Additional history exists CKD HGB USE SMARTSET 96188 08/14/202408/14, 08/08/2023, 03/23/2023, Additional history exists DTaP,Tdap,and [...] Agents on File Name Relationship Healthcare Agent [facility] p Communication Tomi Rao Adult Child Health Care Agen t (per Health Care Power of Malted Milk Mixer document) Care Teams Senior Applications Architect Relationship Specialty Start Date End Date Bridgette Celis MD [address] [place] [address], [place] [address] PCP - General Internal Medicine 09/30/23 documented as of this encounter
--- OUTSIDE RECORDS SUMMARY | 2023-11-18 13:38 | External Medical Summary | Summary of Care ---
Author Name Unknown Organization [facility] Address [address] [place] [address] Phone [phone] Care Team Providers Care Acute Care Nurse Name Role Phone Bridgette Celis MD Primary Care Provider + Reason for Visit * Reason Onset Date Comments Medication Refill 10/24/2023 Encounter Details Date Type Department Care Team (Late st Contact Info) Description 10/24/2023 Refill General Internal Medicine [facility] 200 [facility] [place] [address] Bridgette Celis MD 200 [facility] [place] [address] Allergies No known active allergiesdocumented as of [...] Oral Tablet Extended Release 24 Hour (toPROL XL)Indications:[place]ola Hoist Operator yaw diastolic heart failure (HCC) Take 1 [...] diastolic heart failure (HCC),Coronary artery disease involving [place] coronary artery of [place] heart without angina pectoris,Uncontroll ed type 2 diabetes mellitus with hyperglycemia (HCC),RADHA (obstructive sleep apnea) Take 4 Tablets by mouth in the morning. 90 Tablet 3 03/23/2023 Active Lokelma 10 GM Oral Packet Take 1 Packet by mouth in the morning. 0 08/20/2023 Active OneTouch Delica Plus [id number] Use as directed. 400 Each 3 10/01/2023 [...] Oral Tablet (Revatio)Indication s:Coronary artery disease involving [place] coronary artery of [place] heart without angina pectoris,HTN, goal below 140/90,RADHA (obstructive sleep apnea),Chronic diastolic heart failure (HCC) Take 1 Tablet by mouth in the morning and 1 Tablet at noon and 1 Tablet before bedtime. 90 Tablet 2 10/13/2023 Active Escitalopram Oxalate 20 MG Oral Tablet (Lexapro) Take 1 Tablet by mouth in the morning. 90 Tablet 3 10/26/2023 Active Escitalopram Oxalate 20 MG Oral Tablet (Lexapro) Take 1 Tablet by mouth in the morning. 0 09/15/2022 Discontinue d(Refill) documented as of this encounter [...] HTN 01/17/2023 Coronary artery disease invo lving [place] coronary artery of [place] heart without angina pectoris 01/17/2023 Chronic diastolic [...] Next Due Pneumococcal Conjugate Vacci ne, 20-valent ([id number]) 03/23/2023 Pneumococcal Polysaccharide PPV23 (Pneumovax) 01/06/2008 Seasonal [...] Encounter - Bridgette Celis MD - 10/26/2023 1:58 PM EDTSigned Prescriptions: Disp Refills Escitalopram Oxalate 20 MG Oral Tablet (Le*90 Tab*3 Sig: Take 1 Tablet by mouth in the morning. Authorizing Provider: BRIDGETTE CELIS * Telephone Encounter - Maria Teresa Hubbard MED ASSIST - 10/24/2023 11:26 AM EDT Med pended * Telephone Encounter - Ion Tran CPhT - 10/24/2023 10:34 AM EDT Maricel richter requesting the following medication below that is listed as "Historical". The following information was provided: Medication Name: Escitalopram Strength: 20mg Directions: once daily Preferred Quantity: 90 Previous Prescriber: Dr Guidry Preferred Pharmacy: [facility] Please review and approve if appropriate. Thank you, Angel Tran (senior software development engineer) Fruit Receiver III [facility] (formerly [facility]) 10/24/2023, 10:35 AM documented in this encounter Plan of Treatment Upcoming Encounters Date Type Department Care Team (Late st Contact Info) Description 10/28/2023 1:00 PM EDT Office Visit Pulmonary Medicine, [facility] [address] [facility] [place] [address] Eduardo Christine MD [address] [facility] [address] 11/18/2023 9:00 AM EDT Office Visit Cardiology, [facility] [place] [address] Stevie Villegas DO [address] [facility] [place] [address] 12/29/2023 3:40 PM EDT Office Visit General Internal Medicine [facility] [address] [place] [address] Bridgette Celis MD 200 [facility] [address] [facility] [place] [address] 04/19/2024 9:40 AM EST Office Visit General Internal Medicine [facility] [address] [place] [address] Bridgette Celis MD 200 [facility] [place] [address] Health Maintenance Due Date Last Done Comments [...] Ratio 01/18/2024 01/17/2023 CKD PHOS USE SMARTSET 40320 01/18/2024 01/17/2023, 0 12/25/2019 Influenza Vaccine (FLU shot) (Season Ended) 2024 03/16/2020, 03/16/2020, 03/23/2019, Additional history exists Diabetic Foot Exam 03/23/2024 03/23/2023 GFR 04/13/2024 10/13/2023, 08/13, 08/15/2023, Additional history exists CKD HGB USE SMARTSET 09573 08/14/202408/14, 08/08/2023, 03/23/2023, Additional history exists DTaP,Tdap,and [...] Agen t (per Health Care Power of Bank President document) Care Teams Acute Care Nurse Relationship Specialty Start Date End Date Bridgette Celis MD [address] [place] [address] PCP - General Internal Medicine 09/30/23 documented as of this encounter
--- OUTSIDE RECORDS SUMMARY | 2023-11-18 13:38 | External Medical Summary | Summary of Care ---
Author Name Unknown Organization [facility] Address [address] [place] [address] Phone [phone] Care Team Providers Care Chemical Processing Laborer Name Role Phone Bridgette Celis MD Primary Care Provider + Reason for Referral * Precert (Within 10 days (routine)) - Authorized Specialty Diagnoses / Procedures Referred By Contac t Referred To Contact Cardiac Studies Diagnoses Chronic diastolic heart failure (HCC) Procedures ECHO, COMPLETE (2D), TRANS-THORACIC Eduardo Christine MD [address] [place] [address] Referral ID Status Reason Start Date Expiration Date V isits Requested Visits Authorized [id number] Authorized Precert 10/29/2023 1 1 * Precert (Within 10 days (routine)) - Authorized Specialty Diagnoses / Procedures Referred By Contac t Referred To Contact Radiology Diagnoses Pulmonary HTN (HCC) Type 2 diabetes mellitus with hemoglobin A1c goal of less than 7.5% (HCC) Lung mass Procedures PET CT SKULL BASE TO MID-THIGH FDG Eduardo Christine MD [address] [place] [address] Referral ID Status Reason Start Date Expiration Date V isits Requested Visits Authorized [id number] Authorized 11/04/2023 999 999 Reason for Visit * Reason Comments NEW PATIENT Lung Nodule * Evaluate & Treat - Unlimited Visits (Within 30 days (routine)) - Authorized Specialty Diagnoses / Procedures Referred By Contac t Referred To Contact Pulmonary Diseases / Pulmonary Diagnoses Pulmonary nodule 1 cm or greater in diameter Bridgette Celis MD [address] [place] [address] Referral ID Status Reason Start Date Expiration Date Visits Requested Visits Authorized [id number] Authorized Specialty Services Required 08/27/2023 999 999 Encounter Details Date Type Department Care Team (Late st Contact Info) Description 10/28/2023 1:00 PM EDT Office Visit Pulmonary Medicine, [facility] [address] [facility] [place] [address] Eduardo Christine MD [address] [place] [address] Pulmonary HTN (HCC)*; Chronic [...] diastolic heart failure (HCC),Coronary artery disease involving [place] coronary artery of [place] heart without angina pectoris,Uncontrolled type 2 diabetes mellitus with hyperglycemia (HCC),RADHA (obstructive sleep apnea) Take 4 Tablets by mouth in the morning. 90 Tablet 3 03/23/2023 Active Lokelma 10 GM Oral Packet Take 1 Packet by mouth in the morning. 0 08/20/2023 Active OneTouch Delica Plus [id number] Use as directed. 400 Each 3 10/01/2023 Active Lantus SoloStar 100 UNIT/ML Subcutaneous Solution Pen-injectorIndicatio ns:Type 2 diabetes mellitus with hemoglobin A1c goal of less than 7.5% ([facility]) Inject 25 Units under the skin in the morning. 15 mL 3 10/13/2023 Active OneTouch Ultra In Vitro Strip (Glucose Blood)Indications:Typ e 2 diabetes mellitus with hemoglobin A1c goal of less than 7.5% ([facility]) Use to check blood sugar up to 4 times daily 400 Strip 3 10/13/2023 Active Sildenafil Citrate 20 MG Oral Tablet (Revatio)Indications: Coronary artery disease involving [place] coronary artery of [place] heart without angina pectoris,HTN, goal below 140/90,RADHA [...] HTN 01/17/2023 Coronary artery disease invo lving [place] coronary artery of [place] heart without angina pectoris 01/17/2023 Chronic diastolic [...] Next Due Pneumococcal Conjugate Vacci ne, 20-valent ([id number]) 03/23/2023 Pneumococcal Polysaccharide PPV23 (Pneumovax) 01/06/2008 Seasonal [...] 10/28/2023 1:10 PM EDT 10/28/2023 Pulmonary Medicine, [facility] 132 [facility] [place] [phone] Maricel Flores 1960 female 63 year old Attending Physician Documentation: 63-year-old female, 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 Patient describes shortness of breath on exertion. Denies nocturnal respiratory symptoms. Sedentarylifestyle. Patient had been prescribed oxygen for nighttime use, using it sporadically. Denies cough, wheezing, expectoration. History of bilateral (right more than left) pleural effusion noted since 2019 as per [facility] records. Scattered pulmonary nodules and subcarinal lymphadenopathy had also been notedsince [address] scan and PET scan reports from [facility]. [facility] medical record also shows prominent subcarinal lymphadenopathy. [facility] CT scan chest was reviewed and shows [...] rhythm, obese body habitus, nonlateralizing Neuro examination [facility] record review: CT scan chest 2019 and [...] ENT evaluation and was treated for pharyngitis. [facility] radiology record review: Subcarinal lymphadenopathy noted (again) in 2023. Overall clinical picture is consistent with evidence of CHF, recurrent pleural effusions, stable subcentimeter pulmonary nodules and background mediastinal and subcarinal lymphadenopathy noted at least since 2019. Risk factors include poultry/organic dust exposure while working for [employer], post pneumonic scarring and sarcoidosis. 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[employer] CHF IDDM HTN Hx of Scattered pulmonary Nodules and Subcarinal Lymphadenopathy, 2018 [facility] Noted Lymphadenopathy again in [facility] recent CT Chest Hx of MD Plan: Request Records from [facility] and [facility] CT Chest and CXR from 2018 [...] Lantus SoloStar 100 UNIT/ML Subcutaneous Solution Pen-injector MarketPageTouch Ultra In Vitro Strip (Glucose Blood) Sildenafil Citrate 20 MG Oral Tablet (Revatio) OneTouch Delica Plus [id number] Lokelma 10 GM Oral Packet Lisinopril 2.5 [...] & CONSTRUCTION INTERMEDIATE FOREARM/WRIST SURGERY NEC 2012 [place] DELIVERY ONLY TONGUE AND MOUTH SURGERY NEC [...] 11/18/2023 9:00 AM EDT Office Visit Cardiology, [facility] [address] [place] [address] Stevie Villegas O, DO [address] [place] [address] 11/23/2023 9:30 AM EDT PulmDiagnostic Pulmonary Function Lab, [facility] [address] [facility] [place] [address] [facility], Pulm Function Room 1 [address] [facility] [place] [address] 11/23/2023 10:00 AM EDT PulmDiagnostic Pulmonary Function Lab, [facility] [address] [facility] [place] [address] [facility], Pulm Function Room [address] [facility] [address] 11/26/2023 12:30 PM EDT Cardiac Studies Cardiac Studies [address] [place] [address] 11/30/2023 12:00 PM EDT Office Visit Pulmonary Medicine, [facility] [place] [address] Eduardo Christine MD [address] [place] [address] 12/29/2023 3:40 PM EDT Office Visit General Internal Medicine [facility] 200 [place] [address] Bridgette Celis MD [address] [facility] [place] [address] 04/19/2024 9:40 AM EST Office Visit General Internal Medicine [facility] 200 [facility] [place] [address] Bridgette Celis MD 200 [facility] [place] [address] Scheduled Orders Name Type Priority Associated Diagnoses [...] Ratio 01/18/2024 01/17/2023 CKD PHOS USE SMARTSET 06856 01/18/2024 01/17/2023, 0 12/25/2019 Influenza Vaccine (FLU shot) (Season Ended) 2024 03/16/2020, 03/16/2020, 03/23/2019, Additional history exists Diabetic Foot Exam 03/23/2024 03/23/2023 GFR 04/13/2024 10/13/2023, 08/13, 08/15/2023, Additional history exists CKD HGB USE SMARTSET 14513 08/14/202408/14, 08/08/2023, 03/23/2023, Additional history exists DTaP,Tdap,and [...] Agen t (per Health Care Power of Assistant Portfolio Manager document) Care Teams Chemical Processing Laborer Relationship Specialty Start Date End Date Bridgette Celis MD 200 [place] [address] PCP - General Internal Medicine 09/30/23 documented as of this encounter
--- OUTSIDE RECORDS SUMMARY | 2023-11-18 13:38 | External Medical Summary | Summary of Care ---
Author Name Unknown Organization [facility] Address [address] [facility] [address] Phone [phone] Care Team Providers Care Accounts Payable Assistant Name Role Phone Bridgette Celis MD Primary Care Provider + Reason for Visit * Reason Comments Outpatient Testing Encounter Details Date Type Department Care Team (Late st Contact Info) Description 10/13/2023 3:40 PM EDT Laboratory Laboratory [facility] [address] [place] [address] [facility] [address] [place] [address] HTN, goal below 140/90 Allergies No known active allergiesdocumented as of this encounter (statuses as of 10/13/2023) Medications Medication Sig Dispensed Refills Start Date End Date Status Escitalopram Oxalate 20 MG Oral Tablet (Lexapro) Take 1 Tablet by mouth in the morning. 0 09/15/2022 Active hydrALAZINE HCl 100 MG Oral Tablet Take 1 Tablet by mouth in the morning and 1 Tablet at noon and 1 Tablet before bedtime. 0 01/17/2023 Active Spironolactone 25 MG Oral Tablet (Aldactone)Indicatio ns:Chronic diastolic heart failure (HCC) Take 1 Tablet by mouth in the morning. 0 01/17/2023 Active Torsemide 20 MG Oral Tablet (Demadex)Indications :Chronic diastolic heart failure (HCC) Take 2 Tablets by mouth in the morning and 2 Tablets before bedtime. 40 in the AM and 20 in the PM. 0 01/17/2023 Active amLODIPine Besylate 10 MG Oral Tablet (Norvasc) TAKE 1 TABLET BY MOUTH ONCE DAILY 30 Tablet 3 03/08/2023 Active Empagliflozin 25 MG Oral Tablet (Jardiance)Indicatio ns:Type 2 diabetes mellitus with hemoglobin A1c goal of less than 7.5% (HCC) Take 1 Tablet by mouth in the morning. 30 Tablet 11 03/16/2023 Active Additional Information Patient not taking.Reported on 10/13/2023 Metoprolol Succinate ER 100 MG Oral Tablet Extended Release 24 Hour (toPROL XL)Indications:Chron ic diastolic heart failure (HCC) Take 1 Tablet by mouth in the morning. 30 Tablet 11 03/16/2023 Active metFORMIN HCl ER 500 MG Oral Tablet Extended Release 24 Hour (Glucophage XR)Indications:Uncon trolled type 2 diabetes mellitus with hyperglycemia (HCC) 1 daily with dinner x 1 wk, then inc to 2 daily--st 03/23/2023 60 Tablet 2 03/23/2023 Active Additional Information Patient not taking.Reported on 10/13/2023 Lisinopril 2.5 MG Oral Tablet (Prinivil)Indication s:Chronic diastolic heart failure (HCC),Coronary artery disease involving [place] coronary artery of [place] heart without angina pectoris,Uncontrolle d type 2 diabetes mellitus with hyperglycemia (HCC),RADHA (obstructive sleep apnea) Take 4 Tablets by mouth in the morning. 90 Tablet 3 03/23/2023 Active Lokelma 10 GM Oral Packet Take 1 Packet by mouth in the morning. 0 08/20/2023 Active Rosuvastatin Calcium 20 MG Oral Tablet (Crestor) Take 1 Tablet by mouth in the morning. 90 Tablet 3 08/27/2023 Active OneTouch Delica Plus [id number] Use as directed. 400 Each 3 10/01/2023 Active Lantus SoloStar 100 UNIT/ML Subcutaneous Solution Pen-injectorIndicati ons:Type 2 diabetes mellitus with hemoglobin A1c goal of less than 7.5% (HCC) Inject 25 Units under the skin in the morning. 15 mL 3 10/13/2023 Active OneTouch Ultra In Vitro Strip (Glucose Blood)Indications:Ty pe 2 diabetes mellitus with hemoglobin A1c goal of less than 7.5% (HCC) Use to check blood sugar up to 4 times daily 400 Strip 3 10/13/2023 Active Sildenafil Citrate 20 MG Oral Tablet (Revatio)Indications :Coronary artery disease involving [place] coronary artery of [place] heart without angina pectoris,HTN, goal below 140/90,RADHA (obstructive sleep apnea),Chronic diastolic heart failure (HCC) Take 1 Tablet by mouth in the morning and 1 Tablet at noon and 1 Tablet before bedtime. 90 Tablet 2 10/13/2023 Active documented as of this encounter (statuses as of 10/13/2023) Active Problems Problem Noted Date Diagnosed Date Cerebrovascular disease, arteriosclerotic, post- stroke 08/27/2023 Diabetic ulcer of left heel associated with type 2 diabetes mellitus 08/27/2023 HTN, goal below 130/80 08/27/2023 Body mass index (BMI) of 40.0 to 44.9 in adult 1 06/27/2022 Overview: Per Obesity protocol Pulmonary HTN 01/17/2023 Coronary artery disease invo lving [place] coronary artery of [place] heart without angina pectoris 01/17/2023 Chronic diastolic [...] as of this encounter (statuses as of 10/13/2023) Resolved Problems Problem Noted Date Diagnosed Date Resolved Date Stage 3a chronic kidney disease 08/27/2023 09/24/2023 documented as of this encounter (statuses as of 10/13/2023) Immunizations Name Administration Dates Next Due Pneumococcal Conjugate Vacci ne, 20-valent ([id number]) 03/23/2023 Pneumococcal Polysaccharide PPV23 (Pneumovax) 01/06/2008 Seasonal [...] 1:00 PM EDT Office Visit Pulmonary Medicine, [facility] [address] [place] [address] Eduardo Christine MD [address] [place] [address] 11/18/2023 9:00 AM EDT Office Visit Cardiology, [facility] [address] [place] [address] Stevie Villegas, DO [address] [place] [address] 12/29/2023 3:40 PM EDT Office Visit General Internal Medicine [address] [address] [place] [address] Bridgette Celis MD [address] [place] [address] 04/19/2024 9:40 AM EST Office Visit General Internal Medicine [employer] 200 [facility] [address] [place] [address] Bridgette Celis MD [address] [facility] [place] [address] Pending Results Name Type Priority Associated Diagnoses Date /Time BASIC METABOLIC PANEL Lab Routine HTN, goal below 140/90 10/13/2023 3:47 PM EDT Health Maintenance Due Date Last Done Comments [...] Ratio 01/18/2024 01/17/2023 CKD PHOS USE SMARTSET 11385 01/18/2024 01/17/2023, 0 12/25/2019 Influenza Vaccine (FLU shot) (Season Ended) 2024 03/16/2020, 03/16/2020, 03/23/2019, Additional history exists GFR 02/27/2024 08/27/2023, 03/0 07/2023, 08/13/2023, Additional history exists Diabetic Foot Exam 03/23/2024 03/23/2023 CKD HGB USE SMARTSET 63070 08/14/202408/14, 08/08/2023, 03/23/2023, Additional history exists DTaP,Tdap,and [...] as of this encounter Visit Diagnoses Diagnosis HTN, goal below 140/90 Unspecified essential hypertension documented in this encounter Advance Directives Healthcare Agents on File Name Relationship Healthcare Agent Relationshi p Communication Tomi Rao Adult Child Health Care Agen t (per Health Care Power of Machine Repairer Maintenance document) Care Teams Accounts Payable Assistant Relationship Specialty Start Date End Date Bridgette Celis MD 200 [place] [address] PCP - General Internal Medicine 09/30/23 documented as of this encounter
--- OUTSIDE RECORDS SUMMARY | 2023-11-18 13:39 | External Medical Summary | Summary of Care ---
Author Name Unknown Organization [facility] Address [address] [facility] [address] Phone [phone] Care Team Providers Care Vice Investigator Name Role Phone Bridgette Celis MD Primary Care Provider + Reason for Visit * Reason Onset Date Comments Med Request 09/30/2023 Encounter Details Date Type Department Care Team (Late st Contact Info) Description 09/30/2023 Telephone General Internal Medicine [facility] [place] 200 [facility] [place] [address] Veronique Webb MD [facility] [address] Med Request Allergies No known active allergiesdocumented as of this encounter (statuses as of 10/01/2023) Medications Medication Sig Dispensed Refills Start Date End Date Status Escitalopram Oxalate 20 MG Oral Tablet (Lexapro) Take 1 Tablet by mouth in the morning. 0 09/15/2022 Active hydrALAZINE HCl 100 MG Oral Tablet Take 1 Tablet by mouth in the morning and 1 Tablet at noon and 1 Tablet before bedtime. 0 01/17/2023 Active Spironolactone 25 MG Oral Tablet (Aldactone)Indications :Chronic diastolic heart failure (HCC) Take 1 Tablet by mouth in the morning. 0 01/17/2023 Active Torsemide 20 MG Oral Tablet (Demadex)Indications:C hronic diastolic heart failure (HCC) Take 1 Tablet by mouth in the morning and 1 Tablet before bedtime. 0 01/17/2023 Active amLODIPine Besylate 10 MG Oral Tablet (Norvasc) TAKE 1 TABLET BY MOUTH ONCE DAILY 30 Tablet 3 03/08/2023 Active Empagliflozin 25 MG Oral Tablet (Jardiance)Indications [...] diastolic heart failure (HCC),Coronary artery disease involving rincon coronary artery of rincon heart without angina pectoris,Uncontrolled type 2 diabetes mellitus with hyperglycemia (HCC),RADHA (obstructive sleep apnea) Take 4 Tablets by mouth in the morning. 90 Tablet 3 03/23/2023 Active Lantus SoloStar 100 UNIT/ML Subcutaneous Solution Pen-injector Inject 25 Units under the skin in the morning. 0 08/17/2023 Active Lokelma 10 GM Oral Packet Take 1 Packet by mouth in the morning. 0 08/20/2023 Active Rosuvastatin Calcium 20 MG Oral Tablet (Crestor) Take 1 Tablet by mouth in the morning. 90 Tablet 3 08/27/2023 Active Sildenafil Citrate 20 MG Oral Tablet (Revatio) Take 1 Tablet by mouth in the morning and 1 Tablet at noon and 1 Tablet before bedtime. 90 Tablet 2 09/21/2023 Active documented as of this encounter (statuses as of 10/01/2023) Active Problems Problem Noted Date Diagnosed Date Cerebrovascular disease, arteriosclerotic, post- stroke 08/27/2023 Diabetic ulcer of left heel associated with type 2 diabetes mellitus 08/27/2023 HTN, goal below 130/80 08/27/2023 Body mass index (BMI) of 40.0 to 44.9 in adult 1 06/27/2022 Overview: Per Obesity protocol Pulmonary HTN 01/17/2023 Coronary artery disease invo lving rincon coronary artery of rincon heart without angina pectoris 01/17/2023 Chronic diastolic [...] as of this encounter (statuses as of 10/01/2023) Resolved Problems Problem Noted Date Diagnosed Date Resolved Date Stage 3a chronic kidney disease 08/27/2023 09/24/2023 documented as of this encounter (statuses as of 10/01/2023) Immunizations Name Administration Dates Next Due Pneumococcal Conjugate Vacci ne, 20-valent ([id number]) 03/23/2023 Pneumococcal Polysaccharide PPV23 (Pneumovax) 01/06/2008 Seasonal [...] as of this encounter Miscellaneous Notes * Addendum Note - Madelaine Elliott LPN - 10/01/2023 11:52 AM EDTAddended by: MADELAINE ELLIOTT on: 10/01/2023 11:52 AM Modules accepted: Orders * Telephone Encounter - Madelaine Elliott LPN - 10/01/2023 11:52 AM EDT Orders pended * Telephone Encounter - Philly Christianson PHARM Tech - 09/30/2023 3:27 PM EDT Natasha nurse from [employer] calling requesting orders for Onetouch ultra test strips and one touch delica plus lancets. Caller said she is testing at least 3 times a day. Thanks, Philly Christianson Product Planner [facility] 09/30/2023,3:29 PM documented in this encounter Plan of Treatment Upcoming Encounters Date Type Department Care Team (Late st Contact Info) Description 10/09/2023 1:30 PM EDT Office Visit Podiatry [address] [place] [phone] Higinio Ragland, EZIO [address] [place] [address] 10/13/2023 2:00 PM EDT Office Visit General Internal Medicine [facility] [address] [place] [address] Bridgette Celis MD [address] [place] [address] 10/28/2023 1:00 PM EDT Office Visit Pulmonary Medicine, [facility] 132 [facility] [place] [address] Eduardo Christine MD [address] [place] [address] 11/18/2023 9:00 AM EDT Office Visit Cardiology, [facility] 132 [facility] [place] [address] Stevie Villegas, 132 [facility] [place] [address] 12/29/2023 3:40 PM EDT Office Visit General Internal Medicine [facility] 200 [facility] [place] [address] Bridgette Celis MD 200 [facility] [place], [place] [address] Health Maintenance Due Date Last Done Comments [...] Ratio 01/18/2024 01/17/2023 CKD PHOS USE SMARTSET 25042 01/18/2024 01/17/2023, 0 12/25/2019 Influenza Vaccine (FLU shot) (Season Ended) 2024 03/16/2020, 03/16/2020, 03/16/2020, Additional history exists GFR 02/27/2024 08/27/2023, 03/0 07/2023, 08/13/2023, Additional history exists Diabetic Foot Exam 03/23/2024 03/23/2023 CKD HGB USE SMARTSET 23784 08/14/202408/14, 08/08/2023, 03/23/2023, Additional history exists DTaP,Tdap,and [...] Agen t (per Health Care Power of Plodder Operator document) Care Teams Vice Investigator Relationship Specialty Start Date End Date Bridgette Celis MD 200 [facility] [place] [address] PCP - General Internal Medicine 09/30/23 documented as of this encounter
--- OUTSIDE RECORDS SUMMARY | 2023-11-18 13:39 | External Medical Summary | Summary of Care ---
Author Name Unknown Organization [facility] Address [address] [facility] [address] Phone [phone] Care Team Providers Care Debit Agent Name Role Phone Bridgette Celis MD Primary Care Provider + Reason for Visit * Reason Onset Date Comments Med Request 09/30/2023 Encounter Details Date Type Department Care Team (Late st Contact Info) Description 09/30/2023 Telephone General Internal Medicine [facility] [place] 200 [facility] [place] [address] Veronique Webb MD 200 [facility] [address] Med Request Allergies No known active allergiesdocumented [...] diastolic heart failure (HCC),Coronary artery disease involving [place] coronary artery of [place] heart without angina pectoris,Uncontrolled type 2 diabetes [...] before bedtime. 90 Tablet 2 09/21/2023 Active OneTouch Ultra In Vitro Strip (Glucose Blood) Use to check blood sugar up to 4 times daily 400 Strip 3 10/01/2023 Active OneTouch Delica Plus [id number] Use as directed. 400 Each 3 10/01/2023 Active documented as of this encounter (statuses [...] HTN 01/17/2023 Coronary artery disease invo lving [place] coronary artery of [place] heart without angina pectoris 01/17/2023 Chronic diastolic [...] Next Due Pneumococcal Conjugate Vacci ne, 20-valent ([id number]) 03/23/2023 Pneumococcal Polysaccharide PPV23 (Pneumovax) 01/06/2008 Seasonal [...] encounter Miscellaneous Notes * Addendum Note - Bridgette Celis MD - 10/01/2023 3:39 PM EDTAddended by: BRIDGETTE CELIS on: 10/01/2023 03:39 PM Modules accepted: Orders * Addendum Note - Madelaine Elliott LPN - 10/01/2023 11:52 AM EDTAddended by: MADELAINE ELLIOTT on: 10/01/2023 11:52 AM Modules accepted: Orders * Telephone Encounter - Madelaine Elliott LPN - 10/01/2023 11:52 AM EDT Orders pended * Telephone Encounter - Philly Christianson PHARM Tech - 09/30/2023 3:27 PM EDT [facility] requesting orders for Onetouch ultra test strips and one touch delica plus lancets. Caller said she is testing at least 3 times a day. Thanks, Philly Christianson Rubber Roller Grinder [facility] 09/30/2023,3:29 PM documented in this encounter Plan of Treatment Upcoming Encounters Date Type Department Care Team ([facility] st Contact Info) Description 10/09/2023 1:30 PM EDT Office Visit Podiatry [address] [place] [phone] Higinio Ralg[place], DPM 1020 [place] [address] 10/13/2023 2:00 PM EDT Office Visit General Internal Medicine [facility] [address] [place] [address] [address] Bridgette Celis MD [address] [facility] [place] [address] 10/28/2023 1:00 PM EDT Office Visit Pulmonary Medicine, [facility] [address] [facility] [address] Eduardo Christine MD [address] [place] [facility] [place] [address] 11/18/2023 9:00 AM EDT Office Visit Cardiology, [facility] [place] [address] Stevie Villegas O, DO [address] [facility] [place] [place] [address] 12/29/2023 3:40 PM EDT Office Visit General Internal Medicine [facility] [address] [place] [address] Bridgette Celis MD [address] [facility] [place] [address] Health Maintenance Due Date Last Done Comments Diabetic Eye Exam 1976 Cologuard 2003 Colonoscopy 2003 Colorectal Cancer Screening 2003 Fecal Occult Blood Test 2003 Sigmoidoscopy 2003 Zoster Vaccines (1 of 2) 2008 Mammogram 12/17/2022 12/17/2021, 12/0 09/2016, 11/20/2014, Additional history exists *BASELINE EKG FOR HTN 01/19/2023 COVID-19 Vaccine (1 - 2023-24 season) 2023 DXA Scan 2023 HbA1c 07/20/2023 01/17/2023, 07/0 10/2021, 09/24/2021, Additional history exists Albumin/Creatinine Ratio 01/18/2024 01/17/2023 CKD PHOS USE SMARTSET 74015 01/18/2024 01/17/2023, 0 12/25/2019 Influenza Vaccine (FLU shot) (Season Ended) 2024 03/16/2020, 03/16/2020, 03/16/2020, Additional history exists GFR 02/27/2024 08/27/2023, 030 07/2023, 08/13/2023, Additional history exists Diabetic Foot Exam 03/23/2024 03/23/2023 CKD HGB USE SMARTSET 06533 08/14/202408/14, 08/08/2023, 03/23/2023, Additional history exists DTaP,Tdap,and [...] Agen t (per Health Care Power of Professor Of Sociology document) Care Teams Debit Agent Relationship Specialty Start Date End Date Bridgette Celis MD [address] [place], [place] [address] PCP - General Internal Medicine 09/30/23 documented as of this encounter
--- OUTSIDE RECORDS SUMMARY | 2023-11-18 13:39 | External Medical Summary | Summary of Care ---
Author Name Unknown Organization [facility] Address [address] [place] [facility] [place] [address] Phone [phone] Care Team Providers Care Welfare Eligibility Worker Name Role Phone Bridgette Celis MD Primary Care Provider + Reason for Visit * Reason Onset Date Comments Appointment 10/02/2023 Encounter Details Date Type Department Care Team (Late st Contact Info) Description 10/02/2023 Telephone [facility]rology[facility] [address] [place] [address] Rene Mo MD 200 [facility] [place] [address] Appointment Allergies No known active allergiesdocumented as of this encounter (statuses as of 10/02/2023) Medications Medication Sig Dispensed Refills Start Date [...] diastolic heart failure (HCC),Coronary artery disease involving benton coronary artery of benton heart without angina pectoris,Uncontrolled type 2 diabetes [...] Strip 3 10/01/2023 Active OneTouch Delica Plus [id number] Use as directed. 400 Each 3 10/01/2023 Active documented as of this encounter (statuses as of 10/02/2023) Active Problems Problem Noted Date Diagnosed Date Cerebrovascular disease, arteriosclerotic, post- stroke 08/27/2023 Diabetic ulcer of left heel associated with type 2 diabetes mellitus 08/27/2023 HTN, goal below 130/80 08/27/2023 Body mass index (BMI) of 40.0 to 44.9 in adult 1 06/27/2022 Overview: Per Obesity protocol Pulmonary HTN 01/17/2023 Coronary artery disease invo lving benton coronary artery of benton heart without angina pectoris 01/17/2023 Chronic diastolic [...] as of this encounter (statuses as of 10/02/2023) Resolved Problems Problem Noted Date Diagnosed Date Resolved Date Stage 3a chronic kidney disease 08/27/2023 09/24/2023 documented as of this encounter (statuses as of 10/02/2023) Immunizations Name Administration Dates Next Due Pneumococcal Conjugate Vacci ne, 20-valent ([id number]) 03/23/2023 Pneumococcal Polysaccharide PPV23 (Pneumovax) 01/06/2008 Seasonal [...] encounter Miscellaneous Notes * Telephone Encounter - Eugenia Billy OSA - 10/02/2023 9:58 AM EDT 10/02/23 Called patient and couldn't let messages at this time. Trying to get patient scheduled for a hospital discharge with Dr. Mo in 2-3 weeks. My G not active. Letter will be sent out as well. documented in this encounter Plan of Treatment Upcoming Encounters Date Type Department Care Team (Late st Contact Info) Description 10/09/2023 1:30 PM EDT Office Visit Podiatry [address] [place] [phone] Higinio Ragland, M [address] [place] [address] 10/13/2023 2:00 PM EDT Office Visit General Internal Medicine [facility] 200 [facility] [address] [place] [address] Bridgette Celis MD 200 [facility] [place] [address] 10/28/2023 1:00 PM EDT Office Visit Pulmonary Medicine, [facility] 132 [facility] [place] [address] Eduardo Christine MD [address] [place] [address] 11/18/2023 9:00 AM EDT Office Visit Cardiology, [facility] 132 [facility] [place] [address] Stevie Villegas, [address] [place] [address] 12/29/2023 3:40 PM EDT Office Visit General Internal [facility] 200 [facility] [address] [place] [address] Bridgette Celis MD 200 [facility] [place] [address] Health Maintenance Due Date Last Done Comments [...] Ratio 01/18/2024 01/17/2023 CKD PHOS USE SMARTSET 88517 01/18/2024 01/17/2023, 0 12/25/2019 Influenza Vaccine (FLU shot) (Season Ended) 2024 03/16/2020, 03/16/2020, 03/16/2020, Additional history exists GFR 02/27/2024 08/27/2023, 030 07/2023, 08/13/2023, Additional history exists Diabetic Foot Exam 03/23/2024 03/23/2023 CKD HGB USE SMARTSET 16789 08/14/202408/14, 08/08/2023, 03/23/2023, Additional history exists DTaP,Tdap,and [...] Agen t (per Health Care Power of Radiology Scheduler document) Care Teams Welfare Eligibility Worker Relationship Specialty Start Date End Date Bridgette Celis MD [address] [place] [address], [place] [address] PCP - General Internal Medicine 09/30/23 documented as of this encounter
--- OUTSIDE RECORDS SUMMARY | 2023-11-18 13:39 | External Medical Summary | Summary of Care ---
Author Name Unknown Organization [facility] Address [address] [facility] [address] Phone [phone] Care Team Providers Care Deli Bakery Clerk Name Role Phone Bridgette Celis MD Primary Care Provider + Reason for Visit * Reason Comments Outpatient Testing Encounter Details Date Type Department Care Team (Late st Contact Info) Description 10/13/2023 3:40 PM EDT Laboratory Laboratory [facility] [address] [place] [address] [facility] [address] [place] [address] HTN, goal below 140/90 Allergies No known [...] diastolic heart failure (HCC),Coronary artery disease involving [place] coronary artery of [place] heart without angina pectoris,Uncontrolle d type 2 [...] Tablet 3 08/27/2023 Active OneTouch Delica Plus [id number] Use as directed. 400 Each 3 10/01/2023 [...] Oral Tablet (Revatio)Indications :Coronary artery disease involving [place] coronary artery of [place] heart without angina pectoris,HTN, goal below 140/90,RADHA [...] HTN 01/17/2023 Coronary artery disease invo lving [place] coronary artery of [place] heart without angina pectoris 01/17/2023 Chronic diastolic [...] Next Due Pneumococcal Conjugate Vacci ne, 20-valent ([id number]) 03/23/2023 Pneumococcal Polysaccharide PPV23 (Pneumovax) 01/06/2008 Seasonal [...] 1:00 PM EDT Office Visit Pulmonary Medicine, [facility] [address] [place] [address] Eduardo Christine MD [address] [place] [address] 11/18/2023 9:00 AM EDT Office Visit Cardiology, [facility] [address] [place] [address] Stevie Villegas, DO [address] [place] [address] 12/29/2023 3:40 PM EDT Office Visit General Internal Medicine [address] [place] [address] [place] [address] Bridgette Celis MD [address] [place] [address] 04/19/2024 9:40 AM EST Office Visit General Internal Medicine [facility] [employer] 200 [facility] [address] [place] [address] Bridgette Celis MD [address] [facility] [place] [address] Pending Results Name Type Priority Associated Diagnoses [...] Ratio 01/18/2024 01/17/2023 CKD PHOS USE SMARTSET 75219 01/18/2024 01/17/2023, 0 12/25/2019 Influenza Vaccine (FLU shot) (Season Ended) 2024 03/16/2020, 03/16/2020, 03/23/2019, Additional history exists GFR 02/27/2024 08/27/2023, 03/0 07/2023, 08/13/2023, Additional history exists Diabetic Foot Exam 03/23/2024 03/23/2023 CKD HGB USE SMARTSET 14927 08/14/202408/14, 08/08/2023, 03/23/2023, Additional history exists DTaP,Tdap,and [...] Agen t (per Health Care Power of Photovoltaic Panel Installer document) Care Teams Deli Bakery Clerk Relationship Specialty Start Date End Date Bridgette Celis MD 200 [place] [address] PCP - General Internal Medicine 09/30/23 documented as of this encounter
--- OUTSIDE RECORDS SUMMARY | 2023-11-18 13:39 | External Medical Summary | Summary of Care ---
Author Name Unknown Organization [facility] Address [address] [place] [address] Phone [phone] Care Team Providers Care Manager Helpdesk Name Role Phone Bridgette Celis MD Primary Care Provider + Reason for Visit * Reason Onset Date Comments Hospital Follow-Up 09/30/2023 Encounter Details Date Type Department Care Team (Late st Contact Info) Description 09/30/2023 Telephone General Internal Medicine [facility] [place] 200 [facility] [place] [address] Veronique Webb MD 200 [place] [address] Hospital Follow-Up Allergies No known active allergiesdocumented [...] diastolic heart failure (HCC),Coronary artery disease involving [place] coronary artery of [place] heart without angina pectoris,Uncontrolled type 2 diabetes [...] HTN 01/17/2023 Coronary artery disease invo lving [place] coronary artery of [place] heart without angina pectoris 01/17/2023 Chronic diastolic [...] Next Due Pneumococcal Conjugate Vacci ne, 20-valent ([id number]) 03/23/2023 Pneumococcal Polysaccharide PPV23 (Pneumovax) 01/06/2008 Seasonal [...] Telephone Encounter - Sandra Martinez LPN - 10/02/2023 10:16 AM EDT Noted will await response fro pt * Telephone Encounter - Sandra Martinez LPN - 10/01/2023 7:57 AM EDT Please arrange follow up apt Thank you * Telephone Encounter - Sandra Martinez LPN - 09/30/2023 3:42 PM EDT Please advise regarding f/u apt Thank you * Telephone Encounter - Amilcar Gonzáles RN - 09/30/2023 2:42 PM EDT Patient discharged home from [facility] 09/29/23. Nephrology consulted for CKD, no specific recommendations. Please assist with a follow up appointment. Thank you documented in this encounter Plan of Treatment Upcoming Encounters Date Type Department Care Team (Late st Contact Info) Description 10/09/2023 1:30 PM EDT Office Visit Podiatry [facility] [address] [place] [address] Higinio Ragland DPM 1020 [place] [address] 10/13/2023 2:00 PM EDT Office Visit General Internal Medicine [address] [address] [place], [place] [address] Bridgette Celis MD [address] [place] [address] 10/28/2023 1:00 PM EDT Office Visit Pulmonary Medicine, [facility] 132 [facility] [place] [address] Eduardo Christine MD [address] [place] [address] 11/18/2023 9:00 AM EDT Office Visit Cardiology, [facility] 132 [facility] [place] [address] Stevie Villegas DO 132 [facility] [place] [address] 12/29/2023 3:40 PM EDT Office Visit General Internal Medicine [facility] 200 [facility] [place], [place] [address] Bridgette Celis MD 200 [facility] [place] [address] Health Maintenance Due Date Last Done Comments [...] Ratio 01/18/2024 01/17/2023 CKD PHOS USE SMARTSET 99256 01/18/2024 01/17/2023, 0 12/25/2019 Influenza Vaccine (FLU shot) (Season Ended) 2024 03/16/2020, 03/16/2020, 03/16/2020, Additional history exists GFR 02/27/2024 08/27/2023, 07/2023, 08/13/2023, Additional history exists Diabetic Foot Exam 03/23/2024 03/23/2023 CKD HGB USE SMARTSET 52365 08/14/202408/14, 08/08/2023, 03/23/2023, Additional history exists DTaP,Tdap,and [...] Agen t (per Health Care Power of Heat Welder Plastics document) Care Teams Manager Helpdesk Relationship Specialty Start Date End Date Bridgette Celis MD 200 [place] [address] PCP - General Internal Medicine 09/30/23 documented as of this encounter
--- OUTSIDE RECORDS SUMMARY | 2023-11-18 13:39 | External Medical Summary | Summary of Care ---
Author Name Unknown Organization [facility] Address [address] [place] [address] Phone [phone] Care Team Providers Care Premium Note Interest Calculator Clerk Name Role Phone Bridgette Celis MD Primary Care Provider + Reason for Referral * Evaluate & Treat - Unlimited Visits (Within 10 days (routine)) - Authorized Specialty Diagnoses / Procedures Referred By Contac t Referred To Contact Pharmacist / Pharmacy Diagnoses HTN, goal below 140/90 Type 2 diabetes mellitus with hemoglobin A1c goal of less than 7.5% ([facility]) Bridgette Celis MD [address] [place] [address] Referral ID Status Reason Start Date Expiration Date Visits Requested Visits Authorized [id number] Authorized Specialty Services Required 10/13/2023 99 99 Question Answer Referral Priority Within 10 days (routine) Where should this appointment be scheduled? [facility] Referring Provider Role: Primary Care Reason for Referral: DM Target A1c: < 7 Comments Pharmacist Medication Therapy Management: Minimum frequency patient should be seen in person for medication management: as appropriate per clinical condition and patient status By my signature, I understand that my patient Maricel Flores will have her medication therapy managed by the [facility] Medication Therapy Disease Management Clinic ([facility]) per established policies, procedures, and protocols. I also certify that this referral may serve as an initiation of service for the management of drug therapy in the above noted patient. [facility] providers will be responsible for scheduling patient visits, obtaining appropriate laboratory studies, and adjusting medication management therapy per patient's need, in addition to those roles spelled out in the clinic policy, procedures, and drug management protocols. I understand that the service provided by the [facility] Clinic is voluntary and have informed patient that they can refuse the service at their discretion. I am aware that the [facility] Clinic will provide me with a copy of the patient encounter via my [employer]. I authorize the [facility] Clinic to carry out these activities on my behalf. I consider this program to be a necessary part of the patient's medical care. Bridgette Celis MD Reason for Visit * Reason Onset Date Comments Hospital Follow-Up Hospital Follow-Up 10/13/2023 Encounter Details Date Type Department Care Team (Late st Contact Info) Description 10/13/2023 2:00 PM EDT Office Visit General Internal Medicine [facility] [place] [address] [facility] [address] [place], [place] [address] Bridgette Celis MD [address] [facility] [place] [address] Type 2 diabetes mellitus with hemoglobin A1c goal of less than 7.5% ([facility])*; Stage 3a chronic kidney disease (HCC); Coronary artery disease involving [place] coronary artery of [place] heart without angina pectoris; HTN, goal below 140/90; Cerebrovascular disease, arteriosclerotic, post-stroke; RADHA (obstructive sleep apnea); Chronic diastolic heart failure (HCC); Hospital discharge follow-up Allergies No known active allergiesdocumented as of [...] Oral Tablet Extended Release 24 Hour (toPROL XL)Indications:Helmet Binder yaw diastolic heart failure (HCC) Take 1 [...] diastolic heart failure (HCC),Coronary artery disease involving [place] coronary artery of [place] heart without angina pectoris,Uncontroll ed type 2 [...] Tablet 3 08/27/2023 Active OneTouch Delica Plus [id number] Use as directed. 400 Each 3 10/01/2023 [...] Oral Tablet (Revatio)Indication s:Coronary artery disease involving [place] coronary artery of [place] heart without angina pectoris,HTN, goal below 140/90,RADHA (obstructive sleep apnea),Chronic diastolic heart failure (HCC) Take 1 Tablet by mouth in the morning and 1 Tablet at noon and 1 Tablet before bedtime. 90 Tablet 2 10/13/2023 Active Lantus SoloStar 100 UNIT/ML Subcutaneous Solution Pen-injector Inject 25 Units under the skin in the morning. 0 08/17/2023 4 Discontinue d(Refill) Sildenafil Citrate 20 MG Oral Tablet (Revatio) Take 1 Tablet by mouth in the morning and 1 Tablet at noon and 1 Tablet before bedtime. 90 Tablet 2 09/21/2023 4 Discontinue d(Refill) OneTouch Ultra In Vitro Strip (Glucose Blood) Use to check blood sugar up to 4 times daily 400 Strip 3 10/01/2023 4 Discontinue d(Refill) documented as of this [...] HTN 01/17/2023 Coronary artery disease invo lving [place] coronary artery of [place] heart without angina pectoris 01/17/2023 Chronic diastolic [...] Next Due Pneumococcal Conjugate Vacci ne, 20-valent ([id number]) 03/23/2023 Pneumococcal Polysaccharide PPV23 (Pneumovax) 01/06/2008 Seasonal [...] Sign Reading Time Taken Comments Blood Pressure 124/64 10/13/2023 2:12 PM EDT Pulse 58 10/13/2023 2:12 PM EDT Temperature 36.7 C (98.1 F) 10/13/2023 2:12 PM ED T Respiratory Rate 16 10/13/2023 2:12 PM EDT Oxygen Saturation 95% 10/13/2023 2:12 PM EDT Inhaled Oxygen Concentration - - Weight 110.2 kg (242 lb 14.4 oz) 10/13/2023 2:12 PM EDT Height 154.9 cm (5' 1") 10/13/2023 2:12 PM EDT Body Mass Index 45.9 10/13/2023 2:12 PM EDT documented in this encounter Progress Notes * Bridgette Celis MD - 10/13/2023 2:39 PM EDT Images from the original note were not included. History of Present Illness Maricel Flores is a 63 year old female with a history of type 2 diabetes mellitus, history of diabetic ulcer of the left heel, obstructive sleep apnea, nocturnal hypoxemia, pulmonary hypertension, chronic diastolic CHF, history of CAD, status post stent, hypertension, history of CVA, obesity, CKD stage3, history of hyperkalemia, history of Hydrea tinnitus support a TEVAR, history of depression, history of lymphedema, generalized anxiety disorder, hypothyroidism, history of noncompliance with all the medications, history of visual disturbance from bilateral macular degeneration and she lives at home with her son and eslspeoh-se-ieg was taken to emergency room with respiratory distress and was fo und to have a right lower lobe pneumonia that presents for Hospital Follow-Up Pt is here for the hospital follow up. Chart reviewed from the hospital including admission note, Hand P, consult notes, labs, EKG, imaging and discharge note including discharge meds. Patient states she is feeling better since went back home. Pt was admitted to the hospital on 09/24/23 and was discharged on 09/28/23 . It should be noted that I have seen this patient only once and the 1st time on 08/27/2023 for hospital follow up. Patient was in the hospital from to 14 till 223 after acute CVA, hypertensive urgency,uncontrolled diabetes from noncompliance, hypokalemia, left foot ulcer, upper airway infection, AKIon stage 3 to 4, UTI. Admission Diagnosis : Acute on chronic diastolic heart failure, possible pneumonia, CKD. Nephrology and Pulmonary was consulted for this patient. Patient did receive Rocephin and azithromycin while in the hospital. Later on she was started on IVZosyn and oral doxycycline. Patient was found to have acute on chronic diastolic congestive heart failure along with possible pneumonia. She was started on diuresis and required 3.5 L of oxygen to maintain the normal oxygen saturation. Gradually patient did improve clinically and she was started onPT and OT eval while in the hospital. At the discharge patient is torsemide was changed to Lasix 40 mg twice a day while in the hospital. Patient did have history of hyperkalemia and this admission Lokelma daily was on hold which was started at last or previous hospital admission when her spironolactone and lisinopril were held. After consultation of Nephrology this admission patient was advised to restart spironolactone and lisinopril and Lokelma was on hold. Patient's creatinine was 1.9 which was higher than her baseline creatinine and at the discharge her creatinine was around 1.65. At the discharge all the medications were continued except torsemide was changed to 40 mg in the morning and 20 mg in the afternoon. At the discharge metformin, spironolactone, lisinopril, Jardiance, Lokelma were held and patient was advised to follow up with Nephrology. As per the review of the record and discussion with the family and patient when she arrived to emergency room she was saturating 76% on the room air and was placed on BiPAP. Pt has been followed up by case monitor and specialists. Hemoglobin AIC Results: Lab Results Component Value Date/Time HEMOGLOBIN A1C - [facility] 13.3 (H) 01/17/2023 09:[address] Chest at hospital recently showed: Pathology mediastinal and hilar lymph nodes. It was recommended to follow up with the Hematology-Oncology, cardiomegaly with interstitial pulmonary edema, small pleural effusion with bibasilar consolidation, patchy by later ground- glass and airspace opacities representing alveolar pulmonary edema versus multifocal pneumonia. Patient does have upcoming appointment with Dr. Bergeron, wood ski maker on 10/28/2023. Pt has OT, PT coming twice weekly. Pt has visiting nurse coming once a week. Physical Exam Vitals: 10/13/23 1412 Temp: 36.7 C (98.1 F) Pulse: 58 Resp: 16 SpO2: 95% BP: 124/64 BMI: 45.92 BP Readings from Last 3 Encounters: 10/13/23 124/64 09/07/23 132/70 08/27/23 142/62 Wt Readings from Last 3 Encounters: 10/13/23 110.2 kg (242 lb 14.4 oz) 08/27/23 108.9 kg (240 lb) 03/23/23 106.4 kg (234 lb 9.6 oz) BMI Readings from Last 3 Encounters: 10/13/23 45.90 kg/m 08/27/23 45.35 kg/m 03/23/23 44.33 kg/m Ht Readings from Last 3 Encounters: 10/13/23 1.549 m (5' 1") 03/23/23 1.549 m (5' 1") 01/17/23 1.549 m (5' 1") HEENT: PERRLA, EOMI, anicteric sclera, b/l tympanic membrane is pearly white, no erythema, no pharyngeal erythema, no lymphadenopathy, neck supple CVS: RRR, no murmurs, rubs or gallops, s1 s 2normal. RESP: clear to auscultation, no wheezing or crackles ABD: soft, NT/ND, EXT: no edema, cyanosis, peripheral pulses palpable bilaterally No large joint swelling, no redness, range of motion normal. Skin normal. In wheelchair. Mood stable No focal weakness I have reviewed the following results: CMP, Lipid Panel, and TSH Assessment and Plan Type 2 diabetes mellitus with hemoglobin A1c goal of less than 7.5% (HCC) (Primary) On lantus. Not taking Jardiance, Metformin Stage 3a chronic kidney disease (HCC) Avoid NSAIDs, work on hydration and low-salt diet. Keep close follow up with the Nephrology. Coronary artery disease involving [place] coronary artery of [place] heart without angina pectoris Continue statin and all the current antihypertensive medications. Keep follow up with Cardiology. HTN, goal below 140/90 Continue current dose of metoprolol, hydralazine and amlodipine. Continue low- salt diet and hydration. Avoid NSAIDs. Cerebrovascular disease, arteriosclerotic, post-stroke Stable. Continue current dose of statin. RADHA (obstructive sleep apnea) On Cpap machine. Chronic diastolic heart failure (HCC) Compensated on torsemide 40 mg in the morning and 20 in the evening and aldactone 25 mg in morning. BERTA: Continue current dose of Lexapro 20 mg orally once a day. Wrap-Up Time: I spent a total of 40-54 minutes (exact time 40 mins) on the date of service in preparation, delivery, and documentation of the care provided to Maricel Flores excluding any time spent in the performanceof separately billed services. documented in this encounter Nursing Notes * Johana Ramirez LPN - 10/13/2023 2:12 PM EDT Patient presents today for a hospital follow up. She denies any concerns. documented in this encounter Plan of Treatment Upcoming Encounters Date Type Department Care Team (Late st Contact Info) Description 10/13/2023 3:40 PM EDT Laboratory Laboratory [facility] [place] [address] [place] [place] [id number] [facility] [address] [facility] [place] [address] Arrived 10/28/2023 1:00 PM EDT Office Visit Pulmonary Medicine, [facility] [address] [facility] [place] [address] Eduardo Christine MD [address] [facility] [place] [address] 11/18/2023 9:00 AM EDT Office Visit Cardiology, [facility] [address] [facility] [place] [address] Stevie Villegas, DO 132 [facility] [place] [address] 12/29/2023 3:40 PM EDT Office Visit General Internal Medicine [facility] [place] [address] [place] [address] Bridgette Celis MD [address] [place] [address] 04/19/2024 9:40 AM EST Office Visit General Internal Medicine [facility] [place] [address] [place] [address] Bridgette Celis MD 200 [facility] [place] [address] Scheduled Orders Name Type Priority Associated Diagnoses Orde r Schedule BASIC METABOLIC PANEL Lab Routine HTN, goal below 140/90 Expected: 10/13/2023 (Approximate), Expires: 10/12/2024 Scheduled Referrals Name Type Priority Associated Diagnoses Orde r Schedule PHARMACIST MEDS THERAPY MGMT REFERRAL OP Referral Within 10 days (routine) HTN, goal below 140/90 Type 2 diabetes mellitus with hemoglobin A1c goal of less than 7.5% (HCC) Ordered: 10/13/2023 Health Maintenance Due Date Last Done Comments [...] Ratio 01/18/2024 01/17/2023 CKD PHOS USE SMARTSET 79071 01/18/2024 01/17/2023, 0 12/25/2019 Influenza Vaccine (FLU shot) (Season Ended) 2024 03/16/2020, 03/16/2020, 03/23/2019, Additional history exists GFR 02/27/2024 08/27/2023, 03/0 07/2023, 08/13/2023, Additional history exists Diabetic Foot Exam 03/23/2024 03/23/2023 CKD HGB USE SMARTSET [id number] 08/14/202408/14, 08/08/2023, 03/23/2023, Additional history exists DTaP,Tdap,and [...] as of this encounter Visit Diagnoses Diagnosis Type 2 diabetes mellitus with hemoglobin A1c goal of less than 7.5% (HCC)- Primary Stage 3a chronic kidney disease (HCC) Coronary artery disease involving [place] coronary artery of [place] heart without angina pectoris HTN, goal below 140/90 Unspecified essential hypertension Cerebrovascular disease, arteriosclerotic, post-stroke Cerebral atherosclerosis RADHA (obstructive sleep apnea) Obstructive sleep apnea (adult) (pediatric) Chronic diastolic heart failure (HCC) Chronic diastolic heart failure Hospital discharge follow-up Other follow-up examination documented in this encounter Advance Directives Healthcare Agents on File Name Relationship Healthcare [facility] Tomi Rao Adult Child Health Care Agen t (per Health Care Power of Home Therapy Clinician document) Care Teams Premium Note Interest Calculator Clerk Relationship Specialty Start Date End Date Bridgette Celis MD [address] [facility] [place] [address] PCP - General Internal Medicine 09/30/23 documented as of this encounter
--- OUTSIDE RECORDS SUMMARY | 2023-11-18 13:39 | External Medical Summary ---
Author Name Unknown Address Unknown Organization [id number]:[facility] - [address] [place] [address] [place] [address] Laboratory Report Ordering Provider Test Date Status KEITH RUTH 10/13/2023 15:47:00 Final To be done through [facility] every Thursday and X 3 weeks Observation Date Value Abnormality Reference (Units ) Status BUN 10/13/2023 15:47:00 80 Above high normal 6-20 (mg/dL) Final Creatinine 10/13/2023 15:47:00 1.7 Above high normal 0.5-1.0 (mg/dL) Final Glomerular filtration rate/1.73 sq M.predicted [Volume Rate/Area] in Serum, Plasma or Blood by Creatinine-based formula (CKD-EPI) 10/13/2023 15:47:00 33 Below low normal >=60 (mL/min) Final eGFR is calculated based on the CKD-EPI 2020 equation Sodium 10/13/2023 15:47:00 138 135-146 (m mol/L) Final Potassium 10/13/2023 15:47:00 4.9 3.5-5.1 (m mol/L) Final Cl 10/13/2023 15:47:00 101 98-107 (mm ol/L) Final CO2 10/13/2023 15:47:00 24 22-32 (mmo l/L) Final Anion gap 10/13/2023 15:47:00 13 7-15 (mmol /L) Final Glucose 10/13/2023 15:47:00 143 Above high normal 70 -120 (mg/dL) Final Calcium 10/13/2023 15:47:00 10.1 8.4-10.2 ( mg/dL) Final Performing Location [facility] - [address] [place] [address]
--- OUTSIDE RECORDS SUMMARY | 2023-11-18 13:40 | External Medical Summary | Summary of Care ---
Author Name Unknown Organization [facility] Address [address] [facility] [place] [address] Phone [phone] Care Team Providers Care Driver Utility Worker Name Role Phone Veronique Webb MD Primary Care Provider [phone] Reason for Visit * Reason Comments eRx-Medication Refill Encounter Details Date Type Department Care Team (Late st Contact Info) Description 09/23/2023 Refill General Internal Medicine [facility] [place] [address] [facility] [place] [address] Lazaro Pereira PA-C [address] [place] [address] [place] [address] Allergies No known active allergiesdocumented as of this encounter (statuses as of 09/24/2023) Medications Medication Sig Dispensed Refills Start Date [...] diastolic heart failure (HCC),Coronary artery disease involving [place] coronary artery of [place] heart without angina pectoris,Uncontrolled type 2 diabetes [...] as of this encounter (statuses as of 09/24/2023) Active Problems Problem Noted Date Diagnosed Date Cerebrovascular disease, arteriosclerotic, post- stroke 08/27/2023 Diabetic ulcer of left heel associated with type 2 diabetes mellitus 08/27/2023 HTN, goal below 130/80 08/27/2023 Body mass index (BMI) of 40.0 to 44.9 in adult 1 06/27/2022 Overview: Per Obesity protocol Pulmonary HTN 01/17/2023 Coronary artery disease invo lving [place] coronary artery of [place] heart without angina pectoris 01/17/2023 Chronic diastolic [...] as of this encounter (statuses as of 09/24/2023) Resolved Problems Problem Noted Date Diagnosed Date Resolved Date Stage 3a chronic kidney disease 08/27/2023 09/24/2023 documented as of this encounter (statuses as of 09/24/2023) Immunizations Name Administration Dates Next Due Pneumococcal Conjugate Vacci ne, 20-valent ([id number]) 03/23/2023 Pneumococcal Polysaccharide PPV23 (Pneumovax) 01/06/2008 Seasonal [...] encounter Miscellaneous Notes * Telephone Encounter - William Juarez [facility] - 09/24/2023 2:38 PM EDT Refused Prescriptions: Disp Refills Losartan Potassium 50 MG Oral Tablet (Coza*30 Tab*0 Sig: TAKE 1TABLET BY MOUTH ONCE DAILYRefused By: WILLIAM JUAREZ for Refusal: Medication Never Prescribed for the Patient Atorvastatin Calcium 40 MG Oral Tablet (Li*30 Tab*0 Sig: TAKE 1 TABLET BY MOUT H AT BEDTIMERefused By: WILLIAM JUAREZ for Refusal: Medication Never Prescribed for thePati ent documented in this encounter Plan of Treatment Upcoming Encounters Date Type Department Care Team (Late st Contact Info) Description 10/02/2023 3:00 PM EDT Office Visit Podiatry [address] [place] [phone] Higinio Ragland, DPM [address] [place] [address] 10/28/2023 1:00 PM EDT Office Visit Pulmonary Medicine, [facility] [address] [facility] [place] [address] Eduardo Christine MD [address] [facility] [place] [address] 11/18/2023 9:00 AM EDT Office Visit Cardiology, [facility] [address] [facility] [place] [address] Stevie Villegas, DO [address] [place] [address] 12/29/2023 3:40 PM EDT Office Visit General Internal Medicine [facility] [place] [address] [place] [address] Bridgette Celis MD 200 [facility] [place] [address] Health Maintenance Due Date Last Done Comments [...] Ratio 01/18/2024 01/17/2023 CKD PHOS USE SMARTSET [id number] 01/18/2024 01/17/2023, 0 12/25/2019 Influenza Vaccine (FLU shot) (Season Ended) 2024 03/16/2020, 03/16/2020, 03/16/2020, Additional history exists GFR 02/27/2024 08/27/2023, 03/0 07/2023, 08/13/2023, Additional history exists Diabetic Foot Exam 03/23/2024 03/23/2023 CKD HGB USE SMARTSET [id number] 08/14/202408/14, 08/08/2023, 03/23/2023, Additional history exists DTaP,Tdap,and [...] Agen t (per Health Care Power of Golf Course Patroller document) Care Teams Driver Utility Worker Relationship Specialty Start Date End Date Veronique Webb MD [address] [place] [address] PCP - General Internal Medicine 08/27/23 documented as of this encounter
--- OUTSIDE RECORDS SUMMARY | 2023-11-18 13:40 | External Medical Summary | Summary of Care ---
Author Name Unknown Organization [facility] Address [address] [place] [facility] [place] [address] Phone [phone] Care Team Providers Care Vacuum Applicator Operator Name Role Phone Veronique Webb MD Primary Care Provider [phone] Reason for Visit * Reason Onset Date Comments Referral 09/10/2023 [facility] Discharge ( DM ) Encounter Details Date Type Department Care Team (Late st Contact Info) Description 09/10/2023 Telephone Pharmacy, [facility] [address] [place] [address] [facility] 132 [place] [address] Referral ([facility] Discharge ( DM ) ) Allergies No known active allergiesdocumented as of this encounter (statuses as of 09/10/2023) Medications Medication Sig Dispensed Refills Start Date End Date Status Sildenafil Citrate 20 MG Oral Tablet (Revatio) Take 1 Tablet by mouth in the morning and 1 Tablet at noon and 1 Tablet before bedtime. 0 07/08/2022 Active Escitalopram Oxalate 20 MG Oral Tablet [...] diastolic heart failure (HCC),Coronary artery disease involving [place] coronary artery of [place] heart without angina pectoris,Uncontrolled type 2 diabetes [...] the morning. 90 Tablet 3 08/27/2023 Active documented as of this encounter (statuses as of 09/10/2023) Active Problems Problem Noted Date Diagnosed Date Stage 3a chronic kidney disease 08/27/2023 Cerebrovascular disease, arteriosclerotic, post- stroke 08/27/2023 Diabetic ulcer of left heel associated with type 2 diabetes mellitus 08/27/2023 HTN, goal below 130/80 08/27/2023 Body mass index (BMI) of 40.0 to 44.9 in adult 1 06/27/2022 Overview: Per Obesity protocol Pulmonary HTN 01/17/2023 Coronary artery disease invo lving [place] coronary artery of [place] heart without angina pectoris 01/17/2023 Chronic diastolic [...] as of this encounter (statuses as of 09/10/2023) Immunizations Name Administration Dates Next Due Pneumococcal Conjugate Vacci ne, 20-valent ([id number]) 03/23/2023 Pneumococcal Polysaccharide PPV23 (Pneumovax) 01/06/2008 Seasonal [...] encounter Miscellaneous Notes * Telephone Encounter - Tati Gordon PHARM Tech - 09/10/2023 12:07 PM EDT Maricel has not contacted the clinic to schedule/reschedule an appointment for diabetes management per referral from PCP despite multiple attempts to do so by our team. Patient is discharged from [facility] services at this time. Thank you, Tati Gordon Security Installer [facility] ([facility]) (formerly Telepharmacy) [phone] 09/10/2023,12:08 PM documented in this encounter Plan of Treatment Upcoming Encounters Date Type Department Care Team ([facility] st Contact Info) Description 10/02/2023 3:00 PM EDT Office Visit Podiatry [address] [place] [address] Higinio Ragland, Shahab [address] [place] [address] 10/28/2023 1:00 PM EDT Office Visit Pulmonary Medicine, [facility] 132 [facility] [place] [address] Eduardo Christine MD [address] [place] [address] 11/18/2023 9:00 AM EDT Office Visit Cardiology, [facility] [address] [facility] [place] [address] Stevie Villegas, 132 [facility] [place] [address] 12/29/2023 3:40 PM EDT Office Visit General Internal Medicine [facility] [address] [place] [address] Bridgette Celis MD 200 [facility] [place] [address] Health Maintenance Due Date Last Done Comments Diabetic Eye Exam 1976 Cologuard 2003 Colonoscopy 2003 Colorectal Cancer Screening 2003 Fecal Occult Blood Test 2003 Sigmoidoscopy 2003 Zoster Vaccines (1 of 2) 2008 Mammogram 12/17/2022 12/17/2021, 12/0 09/2016, 11/20/2014, Additional history exists *BASELINE EKG FOR HTN 01/19/2023 COVID-19 Vaccine ( season) 2023 Influenza Vaccine (FLU shot) (#1) 2023 03/16/2020, 03/16/2020, 03/16/2020, Additional history exists DXA Scan 2023 HbA1c 07/20/2023 01/17/2023, 07/0 10/2021, 09/24/2021, Additional history exists Albumin/Creatinine Ratio 01/18/2024 01/17/2023 CKD PHOS USE SMARTSET 72635 01/18/2024 01/17/2023, 0 12/25/2019 GFR 02/27/2024 08/27/2023, 03/0 07/2023, 08/13/2023, Additional history exists Diabetic Foot Exam 03/23/2024 03/23/2023 CKD HGB USE SMARTSET 13088 08/14/202408/14, 08/08/2023, 03/23/2023, Additional history exists Depression Screening 08/26/2024 08/27/2023 DTaP,Tdap,and Td Vaccines (3 - Td or [...] Agen t (per Health Care Power of Varnish Thinner document) Care Teams Vacuum Applicator Operator Relationship Specialty Start Date End Date Veronique Webb MD 200 [place] [address] PCP - General Internal Medicine 08/27/23 documented as of this encounter
--- OUTSIDE RECORDS SUMMARY | 2023-11-18 13:40 | External Medical Summary | Summary of Care ---
Author Name Unknown Organization [facility] Address [address] [place] [address] Phone [phone] Care Team Providers Care Shake Maker Name Role Phone Veronique Webb MD Primary Care Provider [phone] Encounter Details Date Type Department Care Team (Late st Contact Info) Description 09/18/2023 11:45 AM EDT Scheduled Telephone Care Coordination and Integration [address] [place], [place] [id number] Mary Holman, Community Health Information Technology Program Manager [address] [place], [place] [phone] Allergies No known active allergiesdocumented as of this encounter (statuses as of 09/18/2023) Medications Medication Sig Dispensed Refills Start Date [...] diastolic heart failure (HCC),Coronary artery disease involving [place] coronary artery of [place] heart without angina pectoris,Uncontrolled type 2 diabetes [...] as of this encounter (statuses as of 09/18/2023) Active Problems Problem Noted Date Diagnosed Date Stage 3a chronic kidney disease 08/27/2023 Cerebrovascular disease, arteriosclerotic, post- stroke 08/27/2023 Diabetic ulcer of left heel associated with type 2 diabetes mellitus 08/27/2023 HTN, goal below 130/80 08/27/2023 Body mass index (BMI) of 40.0 to 44.9 in adult 1 06/27/2022 Overview: Per Obesity protocol Pulmonary HTN 01/17/2023 Coronary artery disease invo lving [place] coronary artery of [place] heart without angina pectoris 01/17/2023 Chronic diastolic [...] as of this encounter (statuses as of 09/18/2023) Immunizations Name Administration Dates Next Due Pneumococcal Conjugate Vacci ne, 20-valent ([id number]) 03/23/2023 Pneumococcal Polysaccharide PPV23 (Pneumovax) 01/06/2008 Seasonal [...] on file documented as of this encounter Progress Notes * Mary Holman, Community Health Information Technology Program Manager - 09/18/2023 11:25 AM EDT Telemedicine visit: No Community Health Information Technology Program Manager (LITO) documentation: CHW wk 2 f/u call per Susan An RNCM [facility], left vm to return call to Electronically signed by Mary Holman Community Health Information Technology Program Manager at 09/18/2023 11:29 AM EDT documented in this encounter Plan of Treatment Upcoming Encounters Date Type Department Care Team (Late st Contact Info) Description 10/02/2023 3:00 PM EDT Office Visit Podiatry [facility], [address] [place] [phone] Higinio Ragland, EZIO [address] [place] [address] 10/28/2023 1:00 PM EDT Office Visit Pulmonary Medicine, [facility] 132 [place] [address] Eduardo Christine MD [address] [place] [address] 11/18/2023 9:00 AM EDT Office Visit Cardiology, [facility] [address] [place] [address] Stevie Villegas DO 132 [facility] [place] [address] 12/29/2023 3:40 PM EDT Office Visit General Internal Medicine [facility] [address] [place] [address] Bridgette Celis MD [address] [place] [address] Health Maintenance Due Date Last Done Comments [...] Ratio 01/18/2024 01/17/2023 CKD PHOS USE SMARTSET 20879 01/18/2024 01/17/2023, 0 12/25/2019 Influenza Vaccine (FLU shot) (Season Ended) 2024 03/16/2020, 03/16/2020, 03/16/2020, Additional history exists GFR 02/27/2024 08/27/2023, 030 07/2023, 08/13/2023, Additional history exists Diabetic Foot Exam 03/23/2024 03/23/2023 CKD HGB USE SMARTSET 63687 08/14/202408/14, 08/08/2023, 03/23/2023, Additional history exists Depression [...] Agen t (per Health Care Power of Contact Acid Plant Operator Helper document) Care Teams Shake Maker Relationship Specialty Start Date End Date Veronique Webb MD [address] [place] [address] PCP - General Internal Medicine 08/27/23 documented as of this encounter
--- OUTSIDE RECORDS SUMMARY | 2023-11-18 13:40 | External Medical Summary | Summary of Care ---
Author Name Unknown Organization [facility] Address [address] [place] [address] Phone [phone] Care Team Providers Care Bottom Scrubber Name Role Phone Veronique Webb MD Primary Care Provider [phone] Reason for Visit * Reason Onset Date Comments Forms Request 09/09/2023 Encounter Details Date Type Department Care Team (Late st Contact Info) Description 09/09/2023 Telephone General Internal Medicine [facility] 200 [place] [address] Veronique Webb MD 200 [facility] [place] [address] Forms Request Allergies No known active allergiesdocumented as of this encounter (statuses as of 09/09/2023) Medications Medication Sig Dispensed Refills Start Date [...] artery of [place] heart without angina pectoris,Uncontrolled type 2 diabetes [...] as of this encounter (statuses as of 09/09/2023) Active Problems Problem Noted Date Diagnosed Date [...] as of this encounter (statuses as of 09/09/2023) Immunizations Name Administration Dates Next Due Pneumococcal Conjugate Vacci ne, 20-valent ([id number]) 03/23/2023 Pneumococcal Polysaccharide PPV23 (Pneumovax) 01/06/2008 Seasonal [...] encounter Miscellaneous Notes * Telephone Encounter - Maria Teresa Hubbard MED ASSIST - 09/09/2023 1:11 PM EDT Occupational Therapy forms faxed to [facility] at [phone]. Fax successful * Telephone Encounter - Maria Teresa Hubbard MED ASSIST - 09/09/2023 12:45 PM EDT Physical therapy forms faxed to [facility] at [phone]. Fax successful documented in this encounter Plan of Treatment Upcoming Encounters Date Type Department Care Team (Late st Contact Info) Description 10/02/2023 3:00 PM EDT Office Visit Podiatry [address] [place] [address] Higinio Ragland, Shahab [address] [place] [address] 10/28/2023 1:00 PM EDT Office Visit Pulmonary Medicine, [facility] 132 [facility] [place] [address] Eduardo Christine MD [address] [place] [address] 11/18/2023 9:00 AM EDT Office Visit Cardiology, [facility] 132 [facility] [place] [address] Stevie Villegas O, DO 132 [facility] [place] [address] 12/29/2023 3:40 PM EDT Office Visit General Internal Medicine [facility] [address] [place] [address] Bridgette Celis MD [address] [place] [place] [address] Health Maintenance Due Date Last Done Comments [...] Ratio 01/18/2024 01/17/2023 CKD PHOS USE SMARTSET 74589 01/18/2024 01/17/2023, 0 12/25/2019 GFR 02/27/2024 08/27/2023, 03/0 07/2023, 08/13/2023, Additional history exists Diabetic Foot Exam 03/23/2024 03/23/2023 CKD HGB USE SMARTSET 21929 08/14/202408/14, 08/08/2023, 03/23/2023, Additional history exists Depression [...] Agen t (per Health Care Power of List Of First Job Ideas document) Care Teams Bottom Scrubber Relationship Specialty Start Date End Date Veronique Webb MD 200 [facility] [place] [address] PCP - General Internal Medicine 08/27/23 documented as of this encounter
--- OUTSIDE RECORDS SUMMARY | 2023-11-18 13:40 | External Medical Summary | Summary of Care ---
Author Name Unknown Organization [facility] Address [address] [place] [address] Phone [phone] Care Team Providers Care Tape Cutting Machine Operator Name Role Phone Veronique Webb MD Primary Care Provider [phone] Reason for Visit * Reason Onset Date Comments Advice 09/19/2023 Encounter Details Date Type Department Care Team (Late st Contact Info) Description 09/19/2023 Telephone General Internal [facility] 200 [facility] [place] [address] Veronique Webb MD 200 [place] [address] Advice Allergies No known active allergiesdocumented as of this encounter (statuses as of 09/21/2023) Medications Medication Sig Dispensed Refills Start Date [...] (Demadex)Indication s:Chronic diastolic heart failure (HCC) Take 1 [...] Oral Tablet Extended Release 24 Hour (toPROL XL)Indications:Glove Finisher yaw diastolic heart failure (HCC) Take 1 Tablet by mouth in the morning. 30 Tablet 11 03/16/2023 Active metFORMIN HCl ER 500 MG Oral Tablet Extended Release 24 Hour (Glucophage XR)Indications:Unco ntrolled type 2 diabetes mellitus with hyperglycemia (HCC) 1 daily with dinner x 1 wk, then inc to 2 daily--st 03/23/2023 60 Tablet 2 03/23/2023 Active Lisinopril 2.5 MG Oral Tablet (Prinivil)Indicatio ns:Chronic diastolic heart failure (HCC),Coronary artery disease involving [place] coronary artery of [place] heart without angina pectoris,Uncontroll ed type 2 [...] before bedtime. 90 Tablet 2 09/21/2023 Active Sildenafil Citrate 20 MG Oral Tablet (Revatio) Take 1 Tablet by mouth in the morning and 1 Tablet at noon and 1 Tablet before bedtime. 0 07/08/2022 09/21/2023 Discontinued (Refill) documented as of this encounter (statuses as of 09/21/2023) Active Problems Problem Noted Date Diagnosed Date Stage 3a chronic kidney disease 08/27/2023 Cerebrovascular disease, arteriosclerotic, post- stroke 08/27/2023 Diabetic ulcer of left heel associated with type 2 diabetes mellitus 08/27/2023 HTN, goal below 130/80 08/27/2023 Body mass index (BMI) of 40.0 to 44.9 in adult 1 06/27/2022 Overview: Per Obesity protocol Pulmonary HTN 01/17/2023 Coronary artery disease invo lving [place] coronary artery of [place] heart without angina pectoris 01/17/2023 Chronic diastolic [...] as of this encounter (statuses as of 09/21/2023) Immunizations Name Administration Dates Next Due Pneumococcal Conjugate Vacci ne, 20-valent ([id number]) 03/23/2023 Pneumococcal Polysaccharide PPV23 (Pneumovax) 01/06/2008 Seasonal [...] encounter Miscellaneous Notes * Telephone Encounter - Johana Ramirez, TEAR DOWN WORKER - 09/21/2023 10:37 AM EDT Pending Prescriptions: Disp Refills Sildenafil Citrate 20 MG Oral Tablet (Rev*90 Tab*2 Sig: Take 1 Tablet by mouth in the morning and 1 Tablet at noon and 1 Tablet before bedtime. Last Visit: 08/27/2023 (in office), Visit date not found (telemedicine) Next Visit: 12/29/2023 Last date the medication was ordered: 07/08/2022 Patient Active Problem List Diagnosis Code Pulmonary HTN ([facility]) I27.20 Coronary artery disease involving [place] coronary artery of [place] heart without angina pectoris I25.10 Chronic diastolic heart failure ([facility]) I50.32 Lymphedema I89.0 HTN, goal below 140/90 I10 Type 2 diabetes mellitus with hemoglobin A1c goal of less than 7.5% ([facility]) E11.9 Diabetic retinopathy associated with type 2 diabetes mellitus ([facility]) E11.319 Hidradenitis suppurativa L73.2 RADHA (obstructive sleep apnea) G47.33 Kidney disease, chronic, stage III (GFR 30-59 ml/min) ([facility]) N18.30 BERTA (generalized anxiety disorder) F41.1 Recurrent major depressive disorder, in full remission ([facility]) F33.42 Body mass index (BMI) of 40.0 to 44.9 in adult ([facility]) Z68.41 Stage 3a chronic kidney disease ([facility]) N18.31 Cerebrovascular disease, arteriosclerotic, post-stroke I67.2, Z86.73 Diabetic ulcer of left heel associated with type 2 diabetes mellitus ([facility]) E11.621, L97.429 HTN, goal below 130/80 I10 Labs: Lab Results Component Value Date/Time CREATININE - [facility] 1.2 (H) 08/27/2023 04:02 PM CREATININE, RANDOM URINE - [facility] 83 01/17/2023 09:29 AM Lab Results Component Value Date/Time POTASSIUM - [facility] 4.0 08/27/2023 04:02 PM Lab Results Component Value Date/Time TSH - [facility] 2.45 01/17/2023 09:29 AM Lab Results Component Value Date/Time LDL CHOLESTEROL (CALCULATED) - [facility] 108 01/17/2023 09:29 AM Lab Results Component Value Date/Time ALT - [facility] 17 01/17/2023 09:29 AM Hemoglobin AIC Results: Lab Results Component Value Date/Time HEMOGLOBIN A1C - [facility] 13.3 (H) 01/17/2023 09:29 AM * Telephone Encounter - Rosy Kang OSA - 09/19/2023 4:13 PM EDT Pt called in her prescription has and she needs a new one sent in. It is for her SildenafilCitrate 20 mg oral tablet. Pt asking if someone can send this in for her as she is completely out documented in this encounter Plan of Treatment Upcoming Encounters Date Type Department Care Team (Late st Contact Info) Description 10/02/2023 3:00 PM EDT Office Visit Podiatry [address] [place] [address] Higinio Ragland, DPM [address] [place] [address] 10/28/2023 1:00 PM EDT Office Visit Pulmonary Medicine, [facility] 132 [facility] [place] [address] Eduardo Christine MD [address] [facility] [place] [address] 11/18/2023 9:00 AM EDT Office Visit Cardiology, [facility] 132 [facility] [place] [address] Stevie Villegas, DO [address] [place] [address] 12/29/2023 3:40 PM EDT Office Visit General Internal Medicine [facility] [place] [address] [place] [address] Bridgette Celis MD 200 [facility] [place] [address] Health Maintenance Due Date Last Done Comments [...] Ratio 01/18/2024 01/17/2023 CKD PHOS USE SMARTSET 62552 01/18/2024 01/17/2023, 0 12/25/2019 Influenza Vaccine (FLU shot) (Season Ended) 2024 03/16/2020, 03/16/2020, 03/16/2020, Additional history exists GFR 02/27/2024 08/27/2023, 03/0 07/2023, 08/13/2023, Additional history exists Diabetic Foot Exam 03/23/2024 03/23/2023 CKD HGB USE SMARTSET 03053 08/14/202408/14, 08/08/2023, 03/23/2023, Additional history exists DTaP,Tdap,and [...] Relationship Healthcare Agent Relationshi p Communication Tomi aRo Adult Child Health Care Agen t (per Health Care Power of Formula Bottler document) Care Teams Tape Cutting Machine Operator Relationship Specialty Start Date End Date Veronique Webb MD 200 [facility] [place] [address] PCP - General Internal Medicine 08/27/23 documented as of this encounter
--- OUTSIDE RECORDS SUMMARY | 2023-11-18 13:40 | External Medical Summary | Summary of Care ---
Author Name Unknown Organization [facility] Address [address] [place] [address] Phone [phone] Care Team Providers Care Interior Plant Caretaker Name Role Phone Veronique Webb MD Primary Care Provider [phone] Encounter Details Date Type Department Care Team (Late st Contact Info) Description 09/11/2023 2:45 PM EDT Scheduled Telephone Care Coordination and Integration [address] [place] [address] Mary Holman, Community Health Heel Seat Filler [address] [place], [place] [id number] Allergies No known active allergiesdocumented as of this encounter (statuses as of 09/11/2023) Medications Medication Sig Dispensed Refills Start Date [...] diastolic heart failure (HCC),Coronary artery disease involving [place] coronary artery of [place] heart without angina pectoris,Uncontrolled type 2 diabetes [...] as of this encounter (statuses as of 09/11/2023) Active Problems Problem Noted Date Diagnosed Date Stage 3a chronic kidney disease 08/27/2023 Cerebrovascular disease, arteriosclerotic, post- stroke 08/27/2023 Diabetic ulcer of left heel associated with type 2 diabetes mellitus 08/27/2023 HTN, goal below 130/80 08/27/2023 Body mass index (BMI) of 40.0 to 44.9 in adult 1 06/27/2022 Overview: Per Obesity protocol Pulmonary HTN 01/17/2023 Coronary artery disease invo lving [place] coronary artery of [place] heart without angina pectoris 01/17/2023 Chronic diastolic [...] as of this encounter (statuses as of 09/11/2023) Immunizations Name Administration Dates Next Due Pneumococcal Conjugate Vacci ne, 20-valent ([id number]) 03/23/2023 Pneumococcal Polysaccharide PPV23 (Pneumovax) 01/06/2008 Seasonal [...] Progress Notes * Mary Holman, Community Health Heel Seat Filler - 09/11/2023 1:38 PM EDT Telemedicine visit: No Community Health Heel Seat Filler (LITO) documentation: CHW weekly f/u call per Susan An RNCM [facility], left vm to return call to documented in this encounter Plan of Treatment Upcoming Encounters Date Type Department Care Team (Late st Contact Info) Description 10/02/2023 3:00 PM EDT Office Visit Podiatry [facility], [address] [place] [phone] Higinio Ragland, EZIO [address] [place] [address] 10/28/2023 1:00 PM EDT Office Visit Pulmonary Medicine, [facility] 132 [place] [address] Eduardo Christine MD [address] [place] [address] 11/18/2023 9:00 AM EDT Office Visit Cardiology, [facility] 132 [place] [address] Stevie Villegas DO 132 [place] [address] 12/29/2023 3:40 PM EDT Office Visit General Internal Medicine [facility] [address] [place] [address] Bridgette Celis MD [address] [place] [address] Health Maintenance Due Date Last Done Comments [...] Ratio 01/18/2024 01/17/2023 CKD PHOS USE SMARTSET 34261 01/18/2024 01/17/2023, 0 12/25/2019 GFR 02/27/2024 08/27/2023, 03/0 07/2023, 08/13/2023, Additional history exists Diabetic Foot Exam 03/23/2024 03/23/2023 CKD HGB USE SMARTSET 74152 08/14/202408/14, 08/08/2023, 03/23/2023, Additional history exists Depression [...] Agen t (per Health Care Power of Door Assembler document) Care Teams Interior Plant Caretaker Relationship Specialty Start Date End Date Veronique Webb MD 200 [place] [address] PCP - General Internal Medicine 08/27/23 documented as of this encounter
--- OUTSIDE RECORDS SUMMARY | 2023-11-18 13:40 | External Medical Summary | Summary of Care ---
Author Name Unknown Organization [facility] Address [address] [place] [address] Phone [phone] Care Team Providers Care Electronic Court Recorder Name Role Phone Veronique Webb MD Primary Care Provider [phone] Reason for Visit * Reason Onset Date Comments Forms Request 09/09/2023 Encounter Details Date Type Department Care Team (Late st Contact Info) Description 09/09/2023 Telephone General Internal Medicine [facility] 200 [facility] [place] [address] Veronique Webb MD 200 [place] [address] Forms Request Allergies No known active allergiesdocumented [...] diastolic heart failure (HCC),Coronary artery disease involving [place] coronary artery of [place] heart without angina pectoris,Uncontrolled type 2 diabetes [...] HTN 01/17/2023 Coronary artery disease invo lving naknek coronary artery of naknek heart without angina pectoris 01/17/2023 Chronic [...] Next Due Pneumococcal Conjugate Vacci ne, 20-valent ([id number]) 03/23/2023 Pneumococcal Polysaccharide PPV23 (Pneumovax) 01/06/2008 Seasonal [...] PM EDT Physical therapy forms faxed to [facility] at [phone]. Fax successful documented in this encounter Plan of Treatment Upcoming Encounters Date Type Department Care Team (Late st Contact Info) Description 10/02/2023 3:00 PM EDT Office Visit Podiatry [facility], [address] [place] [phone] Higinio Ragland, EZIO [address] [place] [address] 10/28/2023 1:00 PM EDT Office Visit Pulmonary Medicine, [facility] [address] [place] [address] Eduardo Christine MD [address] [place] [address] 11/18/2023 9:00 AM EDT Office Visit Cardiology, [facility] 132 [place] [address] Stevie Villegas DO 132 [facility] [address] 12/29/2023 3:40 PM EDT Office Visit General Internal Medicine [facility] [address] [place] [address] Bridgette Celis MD [address] [place] [address] Health Maintenance Due Date Last Done Comments [...] Ratio 01/18/2024 01/17/2023 CKD PHOS USE SMARTSET 90178 01/18/2024 01/17/2023, 0 12/25/2019 GFR 02/27/2024 08/27/2023, 030 07/2023, 08/13/2023, Additional history exists Diabetic Foot Exam 03/23/2024 03/23/2023 CKD HGB USE SMARTSET 95080 08/14/202408/14, 08/08/2023, 03/23/2023, Additional history exists Depression [...] Agen t (per Health Care Power of Manager Production document) Care Teams Electronic Court Recorder Relationship Specialty Start Date End Date Veronique Webb MD [address] [facility] [address] PCP - General Internal Medicine 08/27/23 documented as of this encounter
--- OUTSIDE RECORDS SUMMARY | 2023-11-18 13:40 | External Medical Summary | Summary of Care ---
Author Name Unknown Organization [facility] Address [address] [facility] [place] [address] Phone [phone] Care Team Providers Care Manager Business Continuity Name Role Phone Veronique Webb MD Primary Care Provider [phone] Encounter Details Date Type Department Care Team (Late st Contact Info) Description 09/25/2023 Orders Only General Internal Medicine [facility] 200 [facility] [place] [id number] Veronique Webb MD 200 [place] [address] Allergies No known active allergiesdocumented as of this encounter (statuses as of 09/25/2023) Medications Medication Sig Dispensed Refills Start Date [...] diastolic heart failure (HCC),Coronary artery disease involving [place] coronary artery of [place] heart without angina pectoris,Uncontrolled type 2 diabetes [...] as of this encounter (statuses as of 09/25/2023) Active Problems Problem Noted Date Diagnosed Date Cerebrovascular disease, arteriosclerotic, post- stroke 08/27/2023 Diabetic ulcer of left heel associated with type 2 diabetes mellitus 08/27/2023 HTN, goal below 130/80 08/27/2023 Body mass index (BMI) of 40.0 to 44.9 in adult 1 06/27/2022 Overview: Per Obesity protocol Pulmonary HTN 01/17/2023 Coronary artery disease invo lving [place] coronary artery of [place] heart without angina pectoris 01/17/2023 Chronic diastolic [...] as of this encounter (statuses as of 09/25/2023) Resolved Problems Problem Noted Date Diagnosed Date Resolved Date Stage 3a chronic kidney disease 08/27/2023 09/24/2023 documented as of this encounter (statuses as of 09/25/2023) Immunizations Name Administration Dates Next Due Pneumococcal Conjugate Vacci ne, 20-valent ([id number]) 03/23/2023 Pneumococcal Polysaccharide PPV23 (Pneumovax) 01/06/2008 Seasonal [...] 10/02/2023 3:00 PM EDT Office Visit Podiatry [address] [place] [phone] Higinio Ragland, DPM [address] [place] [address] 10/28/2023 1:00 PM EDT Office Visit Pulmonary Medicine, [facility] [place] [address] Eduardo Christine MD [address] [place] [address] 11/18/2023 9:00 AM EDT Office Visit Cardiology, [facility] 132 [facility] [place] [address] Stevie Villegas, [facility] [place] [address] 12/29/2023 3:40 PM EDT Office Visit General Internal Medicine [facility] 200 [facility] [place] [address] Bridgette Celis MD 200 [facility] [place] [address] Pending Results Name Type Priority Associated Diagnoses Date /Time OUTSIDE LAB-CORONAVIRUS (COVID-19) Lab Routine 09/24/2023 Health Maintenance Due Date Last Done Comments [...] Ratio 01/18/2024 01/17/2023 CKD PHOS USE SMARTSET 52315 01/18/2024 01/17/2023, 0 12/25/2019 Influenza Vaccine (FLU shot) (Season Ended) 2024 03/16/2020, 03/16/2020, 03/16/2020, Additional history exists GFR 02/27/2024 08/27/2023, 07/2023, 08/13/2023, Additional history exists Diabetic Foot Exam 03/23/2024 03/23/2023 CKD HGB USE SMARTSET 68253 08/14/202408/14, 08/08/2023, 03/23/2023, Additional history exists DTaP,Tdap,and [...] Name Relationship Healthcare Agent Relationshi p Communication Toim Rao Adult Child Health Care Agen t (per Health Care Power of Window And Siding Craftsman document) Care Teams Manager Business Continuity Relationship Specialty Start Date End Date Veronique Webb MD [address] [place] [address] PCP - General Internal Medicine 08/27/23 documented as of this encounter
--- OUTSIDE RECORDS SUMMARY | 2023-11-18 13:40 | External Medical Summary | Summary of Care ---
Author Name Unknown Organization [facility] Address [address] [facility] [address] Phone [phone] Care Team Providers Care Computed Tomography Technician Name Role Phone Bridgette Celis MD Primary Care Provider + Reason for Visit * Reason Onset Date Comments Med Request 09/30/2023 Encounter Details Date Type Department Care Team (Late st Contact Info) Description 09/30/2023 Telephone General Internal Medicine [facility] [place] 200 [facility] [place] [address] Veronique Webb MD 200 [facility] [address] Med Request Allergies No known active allergiesdocumented as of this encounter (statuses as of 09/30/2023) Medications Medication Sig Dispensed Refills Start Date [...] diastolic heart failure (HCC),Coronary artery disease involving [place] coronary artery of [place] heart without angina pectoris,Uncontrolled type 2 diabetes [...] as of this encounter (statuses as of 09/30/2023) Active Problems Problem Noted Date Diagnosed Date Cerebrovascular disease, arteriosclerotic, post- stroke 08/27/2023 Diabetic ulcer of left heel associated with type 2 diabetes mellitus 08/27/2023 HTN, goal below 130/80 08/27/2023 Body mass index (BMI) of 40.0 to 44.9 in adult 1 06/27/2022 Overview: Per Obesity protocol Pulmonary HTN 01/17/2023 Coronary artery disease invo lving [place] coronary artery of [place] heart without angina pectoris 01/17/2023 Chronic diastolic [...] as of this encounter (statuses as of 09/30/2023) Resolved Problems Problem Noted Date Diagnosed Date Resolved Date Stage 3a chronic kidney disease 08/27/2023 09/24/2023 documented as of this encounter (statuses as of 09/30/2023) Immunizations Name Administration Dates Next Due Pneumococcal Conjugate Vacci ne, 20-valent ([id number]) 03/23/2023 Pneumococcal Polysaccharide PPV23 (Pneumovax) 01/06/2008 Seasonal [...] encounter Miscellaneous Notes * Telephone Encounter - Philly Christianson PHARM Tech - 09/30/2023 3:27 PM EDT Natasha nurse from [employer] calling requesting orders for Onetouch ultra test strips and one touch delica plus lancets. Caller said she is testing at least 3 times a day. [facility] 09/30/2023,3:29 PM documented in this encounter Plan of Treatment Upcoming Encounters Date Type Department Care Team (Late st Contact Info) Description 10/09/2023 1:30 PM EDT Office Visit Podiatry [address] [place] [address] Higinio Ragland, EZIO [address] [place] [address] 10/13/2023 2:00 PM EDT Office Visit General Internal Medicine [facility] 200 [place] [address] Bridgette Celis MD 200 [place] [address] 10/28/2023 1:00 PM EDT Office Visit Pulmonary Medicine, [facility] 132 [facility] [place] [address] Eduardo Christine MD [address] [facility] [place] [address] 11/18/2023 9:00 AM EDT Office Visit Cardiology, [facility] 132 [facility] [place] [address] Stevie Villegas O, DO 132 [facility] [place] [address] 12/29/2023 3:40 PM EDT Office Visit General Internal Medicine [facility] [address] [place] [address] Bridgette Celis MD 200 [facility] [place] [address] Health Maintenance Due Date Last Done Comments Diabetic Eye Exam 1976 Cologuard 2003 Colonoscopy 2003 Colorectal Cancer Screening 2003 Fecal Occult Blood Test 2003 Sigmoidoscopy 2003 Zoster Vaccines (1 of 2) 2008 Mammogram 12/17/2022 12/17/2021, 12/09/2016, 11/20/2014, Additional history exists *BASELINE EKG FOR HTN 01/19/2023 COVID-19 Vaccine ( season) 2023 DXA Scan 2023 HbA1c 07/20/2023 01/17/2023, 070 10/2021, 09/24/2021, Additional history exists Albumin/Creatinine Ratio 01/18/2024 01/17/2023 CKD PHOS USE SMARTSET 93916 01/18/2024 01/17/2023, 0 12/25/2019 Influenza Vaccine (FLU shot) (Season Ended) 2024 03/16/2020, 03/16/2020, 03/16/2020, Additional history exists GFR 02/27/2024 08/27/2023, 03/0 07/2023, 08/13/2023, Additional history exists Diabetic Foot Exam 03/23/2024 03/23/2023 CKD HGB USE SMARTSET 61527 08/14/202408/14, 08/08/2023, 03/23/2023, Additional history exists DTaP,Tdap,and [...] Agen t (per Health Care Power of Iron Miner Blasting document) Care Teams Computed Tomography Technician Relationship Specialty Start Date End Date Bridgette Celis MD 200 [facility] [place] [address] PCP - General Internal Medicine 09/30/23 documented as of this encounter
--- OUTSIDE RECORDS SUMMARY | 2023-11-18 13:40 | External Medical Summary | Summary of Care ---
Author Name Unknown Organization [facility] Address [address] [place] [address] Phone [phone] Care Team Providers Care Livestock Commission Agent Name Role Phone Veronique Webb MD Primary Care Provider [phone] Encounter Details Date Type Department Care Team ([facility] st Contact Info) Description 09/25/2023 Result Scan Unspecified Department <No scans attached> Allergies No known active allergiesdocumented as of this encounter (statuses as of 09/28/2023) Medications Medication Sig Dispensed Refills Start Date [...] diastolic heart failure (HCC),Coronary artery disease involving [place] coronary artery of [place] heart without angina pectoris,Uncontrolled type 2 diabetes [...] as of this encounter (statuses as of 09/28/2023) Active Problems Problem Noted Date Diagnosed Date Cerebrovascular disease, arteriosclerotic, post- stroke 08/27/2023 Diabetic ulcer of left heel associated with type 2 diabetes mellitus 08/27/2023 HTN, goal below 130/80 08/27/2023 Body mass index (BMI) of 40.0 to 44.9 in adult 1 06/27/2022 Overview: Per Obesity protocol Pulmonary HTN 01/17/2023 Coronary artery disease invo lving [place] coronary artery of [place] heart without angina pectoris 01/17/2023 Chronic diastolic [...] as of this encounter (statuses as of 09/28/2023) Resolved Problems Problem Noted Date Diagnosed Date Resolved Date Stage 3a chronic kidney disease 08/27/2023 09/24/2023 documented as of this encounter (statuses as of 09/28/2023) Immunizations Name Administration Dates Next Due Pneumococcal Conjugate Vacci ne, 20-valent ([id number]) 03/23/2023 Pneumococcal Polysaccharide PPV23 (Pneumovax) 01/06/2008 Seasonal [...] Upcoming Encounters Date Type Department Care Team ([facility] Contact Info) Description 10/02/2023 3:00 PM EDT Office Visit Podiatry [address] [place] [address] Higinio Ragland, DPM [address] [place] [address] 10/28/2023 1:00 PM EDT Office Visit Pulmonary Medicine, [facility] [place] [address] Eduardo Christine MD [address] [place] [address] 11/18/2023 9:00 AM EDT Office Visit Cardiology, [facility] 132 [facility] [place] [address] Stevie Villegas DO 132 [place] [address] 12/29/2023 3:40 PM EDT Office Visit General Internal Medicine [facility] 200 [facility] [place] [address] Bridgette Celis MD 200 [facility] [place] [address] Health Maintenance Due Date Last Done Comments [...] Ratio 01/18/2024 01/17/2023 CKD PHOS USE SMARTSET 06693 01/18/2024 01/17/2023, 0 12/25/2019 Influenza Vaccine (FLU shot) (Season Ended) 2024 03/16/2020, 03/16/2020, 03/16/2020, Additional history exists GFR 02/27/2024 08/27/2023, 03/0 07/2023, 08/13/2023, Additional history exists Diabetic Foot Exam 03/23/2024 03/23/2023 CKD HGB USE SMARTSET 54050 08/14/202408/14, 08/08/2023, 03/23/2023, Additional history exists DTaP,Tdap,and [...] Name Priority Date/Time Associated Diagnosis Comments RADIOLOGY SCANNED RESULT 09/25/2023 documented in this encounter Results * RADIOLOGY SCANNED RESULT (09/25/2023) 09/25/2023 No Physician Data Unknown DIAGNOSTIC RAD IOLOGY SERVICES documented in this encounter Advance Directives Healthcare Agents on File Name Relationship Healthcare Agent Relationshi p Communication Tomi Rao Adult Child Health Care Agen t (per Health Care Power of Waiter/Waitress Formal document) Care Teams Livestock Commission Agent Relationship Specialty Start Date End Date Veronique Webb MD 200 [facility] [place] [address] PCP - General Internal Medicine 08/27/23 documented as of this encounter
--- OUTSIDE RECORDS SUMMARY | 2023-11-18 13:41 | External Medical Summary | Summary of Care ---
Author Name Unknown Organization [facility] Address [address] [place] [address] Phone [phone] Care Team Providers Care Hydraulic Lift Driver Name Role Phone Veronique Webb MD Primary Care Provider [phone] Encounter Details Date Type Department Care Team (Late st Contact Info) Description 09/07/2023 11:00 AM EDT Scheduled Telephone Care Coordination and Integration [address] [place], [place] [phone] Denise Adkins, Community [facility] Industrial Robotics Mechanic [address] [place], [place] [phone] Allergies No known active allergiesdocumented as of this encounter (statuses as of 09/07/2023) Medications Medication Sig Dispensed Refills Start Date [...] diastolic heart failure (HCC),Coronary artery disease involving [place] coronary artery of [place] heart without angina pectoris,Uncontrolled type 2 [...] as of this encounter (statuses as of 09/07/2023) Active Problems Problem Noted Date Diagnosed Date Stage 3a chronic kidney disease 08/27/2023 Cerebrovascular disease, arteriosclerotic, post- stroke 08/27/2023 Diabetic ulcer of left heel associated with type 2 diabetes mellitus 08/27/2023 HTN, goal below 130/80 08/27/2023 Body mass index (BMI) of 40.0 to 44.9 in adult 1 06/27/2022 Overview: Per Obesity protocol Pulmonary HTN 01/17/2023 Coronary artery disease invo lving [place] coronary artery of [place] heart without angina pectoris 01/17/2023 Chronic [...] as of this encounter (statuses as of 09/07/2023) Immunizations Name Administration Dates Next Due Pneumococcal Conjugate Vacci ne, 20-valent ([id number]) 03/23/2023 Pneumococcal Polysaccharide PPV23 (Pneumovax) 01/06/2008 Seasonal [...] the money to buy more. Never true 08/27/19 24 Within the past 12 months, t he food you bought just didn't last and you didn't have money to get more. Never true 08/27/2023 Sex and Gender Information Value Date Recorded Sex Assigned at Not on file Gender Identity Not on file Sexual Orientation Not on file Job Start Date Occupation Industry Not on file Not on file Not on file documented as of this encounter Progress Notes * Denise Adkins, Community [facility] Industrial Robotics Mechanic - 09/07/2023 11:38 AM EDT Telemedicine visit: No Community [facility] Industrial Robotics Mechanic ([employer]) documentation: [facility] called and spoke to Vanesa and she was at work and requested that I call her Tomi and gave Tomi's cell number that we have listed. Denise Adkins- Community Health Worker 1 Support Services/[facility] [email or web address] documented in this encounter Plan of Treatment Upcoming Encounters Date Type Department Care Team ([facility] st Contact Info) Description 09/07/2023 1:00 PM EDT Home Visit Care Coordination and Integration [address] [place] [address] Mary Holman [facility] Health Industrial Robotics Mechanic [address] [place] [address] 10/02/2023 3:00 PM EDT Office Visit Podiatry [address] [place] [phone] Higinio Ragland, EZIO [address] [place] [address] 10/28/2023 1:00 PM EDT Office Visit Pulmonary Medicine, [facility] 132 [facility] [place] [address] Eduardo Christine MD [address] [facility] [place] [address] 11/18/2023 9:00 AM EDT Office Visit Cardiology, [facility] 132 [facility] [place] [address] Stevie Villegas DO 132 [facility] [place] [address] 12/29/2023 3:40 PM EDT Office Visit General Internal Medicine [place] [facility] [address] [place], [place] [address] Bridgette Celis MD [address] [place] [address] Health Maintenance Due Date Last Done Comments [...] Ratio 01/18/2024 01/17/2023 CKD PHOS USE SMARTSET 22640 01/18/2024 01/17/2023, 0 12/25/2019 GFR 02/27/2024 08/27/2023, 03/0 07/2023, 08/13/2023, Additional history exists Diabetic Foot Exam 03/23/2024 03/23/2023 CKD HGB USE SMARTSET 38444 08/14/202408/14, 08/08/2023, 03/23/2023, Additional history exists Depression [...] Agen t (per Health Care Power of Spring Intern document) Care Teams Hydraulic Lift Driver Relationship Specialty Start Date End Date Veronique Webb MD 200 [place] [address] PCP - General Internal Medicine 08/27/23 documented as of this encounter
--- OUTSIDE RECORDS SUMMARY | 2023-11-18 13:41 | External Medical Summary | Summary of Care ---
Author Name Unknown Organization [facility] Address [address] [place] [address] Phone [phone] Care Team Providers Care Foam Gun Operator Name Role Phone Veronique Webb MD Primary Care Provider Reason for Referral * Evaluate & Treat - Unlimited Visits (Within 30 days (routine)) - Authorized Specialty Diagnoses / Procedures Referred By Contac t Referred To Contact Podiatry Diagnoses Chronic ulcer of great toe of left foot, unspecified ulcer stage (HCC) Bridgette Celis MD [address] [place] [address] Referral ID Status Reason Start Date Expiration Date Visits Requested Visits Authorized [id number] Authorized Specialty Services Required 08/27/[phone] Question Answer Referral Priority Within 30 days (routine) Where should this appointment be scheduled? [facility] Which condition are you referring this patient for? Diabetic foot care/pain Specific condition? Diabetic Foot pain Medicare Patient? Yes Can Patient perform routine footcare without assistance? No Does patient have a chronic condition? Yes Has patient been seen in the past 6 months? No Comments New patient to area. Uncontrolled type 2 DM, left heel ulcer, neuropathy. Recent stroke, HTN. Thanks. * Evaluate & Treat - Unlimited Visits (Within 30 days (routine)) - Authorized Specialty Diagnoses / Procedures Referred By Contact Referred To Contact Cardiovascular Medicine / Cardiology Diagnoses Coronary artery disease involving twin hills coronary artery of twin hills heart without angina pectoris Bridgette Celis MD [address] [place] [address] Referral ID Status Reason Start Date Expiration Date Visits Requested Visits Authorized [id number] Authorized Specialty Services Required 08/27/[phone] Question Answer Referral Priority Within 30 days (routine) Where should this appointment be scheduled? [facility] To which of the following clinics are you referring your patient? General Cardiology Clinic Comments Recent CVA, possible embolic and had hypertensive emergency. Hx of CAD, KS when was in [place], s/p stent placed. Thanks. * Evaluate & Treat - Unlimited Visits (Within 30 days (routine)) - Authorized Specialty Diagnoses / Procedures Referred By Contes crespo Referred To Contact Pulmonary Diseases / Pulmonary Diagnoses Pulmonary nodule 1 cm or greater in diameter Bridgette Celis MD [address] [place] [address] Referral ID Status Reason Start Date Expiration Date Visits Requested Visits Authorized [id number] Authorized Specialty Services Required 08/27/[phone] Question Answer Referral Priority Within 30 days (routine) Where should this appointment be scheduled? [facility] Primary Reason for Referral? Other Comments 12 mm left lung opasity. Multiple complex health issues. Thanks. * Evaluate & Treat - Unlimited Visits (Within 10 days (routine)) - Authorized Specialty Diagnoses / Procedures Referred By Contes t Referred To Contact Pharmacist / Pharmacy Diagnoses Diabetic retinopathy of both eyes associated with type 2 diabetes mellitus, macular edema presence unspecified, unspecified retinopathy severity (HCC) Type 2 diabetes mellitus with hemoglobin A1c goal of less than 7.0% (HCC) Bridgette Celis MD [address] [place] [address] Referral ID Status Reason Start Date Expiration Date Visits Requested Visits Authorized [id number] Authorized Specialty Services Required 08/27/2023 99 [phone] Question Answer Referral Priority Within 10 days (routine) Where should this appointment be scheduled? [facility] Referring Provider Role: Primary Care Reason for Referral: DM Target A1c: < 7 Comments Pharmacist Medication Therapy Management: Minimum frequency patient should be seen in person for medication management: as appropriate per clinical condition and patient status By my signature, I understand that my patient Maricel Flores will have her medication therapy managed by the [facility] ([facility]) per established policies, procedures, and protocols. I also certify that this referral may serve as an initiation of service for the management of drug therapy in the above noted patient. [facility] providers will be responsible for scheduling patient visits, obtaining appropriate laboratory studies, and adjusting medication management therapy per patient's need, in addition to those roles spelled out in the clinic policy, procedures, and drug management protocols. I understand that the service provided by the [facility] is voluntary and have informed patient that they can refuse the service at their discretion. I am aware that the [facility] will provide me with a copy of the patient encounter via my [email or web address]. I authorize the [facility] to carry out these activities on my behalf. I consider this program to be a necessary part of the patient's medical care. Bridgette Celis MD Reason for Visit * Reason Onset Date Comments Hospital Follow-Up Hospital Follow-Up 08/27/2023 Encounter Details Date Type Department Care Team (Latest Contact Info) Description 08/27/2023 2:20 PM EDT Office Visit General Internal Medicine [facility] [place] [address] [place] [address] Bridgette Celis MD [address] [facility] [place] [address] Cerebrovascular disease, arteriosclerotic, post-stroke*; Chronic diastolic heart failure ([facility]); Diabetic retinopathy of both eyes associated with type 2 diabetes mellitus, macular edema presence unspecified, unspecified retinopathy severity ([facility]); Stage 3a chronic kidney disease ([facility]); Body mass index (BMI) of 40.0 to 44.9 in adult ([facility]); Recurrent major depressive disorder, in full remission ([facility]); BERTA (generalized anxiety disorder); Coronary artery disease involving twin hills coronary artery of twin hills heart without angina pectoris; Pulmonary HTN ([facility]); RADHA (obstructive sleep apnea); Diabetic ulcer of left heel associated with type 2 diabetes mellitus, unspecified ulcer stage ([facility]); HTN, goal below 130/80; Type 2 diabetes mellitus with hemoglobin A1c goal of less than 7.0% (HCC); Hospital discharge follow-up; Pulmonary nodule 1 cm or greater in diameter; Chronic ulcer of great toe of left foot, unspecified ulcer stage (HCC) Allergies No known active allergiesdocumented as of this encounter (statuses as of 08/27/2023) Medications Medication Sig Dispensed Refills Start Date [...] 01/17/2023 Active Spironolactone 25 MG Oral Tablet (Aldactone)Indicat ions:Chronic diastolic heart failure (HCC) Take 1 Tablet by mouth in the morning. 0 01/17/2023 Active Torsemide 20 MG Oral Tablet (Demadex)Indicatio ns:Chronic diastolic heart failure (HCC) Take 1 Tablet by mouth in the morning and 1 Tablet before bedtime. 0 01/17/2023 Active amLODIPine Besylate 10 MG Oral Tablet (Norvasc) TAKE 1 TABLET BY MOUTH ONCE DAILY 30 Tablet 3 03/08/2023 Active Empagliflozin 25 MG Oral Tablet (Jardiance)Indicat ions:Type [...] 03/23/2023 Active Lisinopril 2.5 MG Oral Tablet (Prinivil)Indicati ons:Chronic diastolic heart failure (HCC),Coronary artery disease involving twin hills coronary artery of twin hills heart without angina pectoris,Uncontrol led type 2 [...] the morning. 90 Tablet 3 08/27/2023 Active Trulicity 3 MG/0.5ML Subcutaneous Solution Pen-injector once a week. 0 11/14/2022 4 Discontinued Insulin Detemir 100 UNIT/ML Subcutaneous Solution Pen-injector (Levemir) Inject 45 Units under the skin in the morning and 45 Units before bedtime. 0 11/25/2022 4 Discontinued Rosuvastatin Calcium 10 MG Oral Tablet (Crestor) TAKE 1 TABLET BY MOUTH ONCE DAILY 30 Tablet 3 03/08/2023 4 Discontinued(Med ication/Dose Changed) Rosuvastatin Calcium 20 MG Oral Tablet (Crestor) Take 1 Tablet by mouth in the morning. 90 Tablet 3 08/27/2023 4 Discontinued documented as of this encounter (statuses as of 08/27/2023) Active Problems Problem Noted Date Diagnosed Date Stage 3a chronic kidney disease 08/27/2023 Cerebrovascular disease, arteriosclerotic, post- stroke 08/27/2023 Diabetic ulcer of left heel associated with type 2 diabetes mellitus 08/27/2023 HTN, goal below 130/80 08/27/2023 Body mass index (BMI) of 40.0 to 44.9 in adult 1 06/27/2022 Overview: Per Obesity protocol Pulmonary HTN 01/17/2023 Coronary artery disease invo lving twin hills coronary artery of twin hills heart without angina pectoris 01/17/2023 Chronic diastolic [...] as of this encounter (statuses as of 08/27/2023) Immunizations Name Administration Dates Next Due Pneumococcal Conjugate Vacci ne, 20-valent (Ugaarnc23) 03/23/2023 Pneumococcal Polysaccharide PPV23 (Pneumovax) 01/06/2008 Seasonal [...] Sign Reading Time Taken Comments Blood Pressure 142/62 08/27/2023 2:24 PM EDT Pulse 60 08/27/2023 2:24 PM EDT Temperature 36.3 C (97.3 F) 08/27/2023 2:24 PM ED T Respiratory Rate 16 08/27/2023 2:24 PM EDT Oxygen Saturation 96% 08/27/2023 2:24 PM EDT Inhaled Oxygen Concentration - - Weight 108.9 kg (240 lb) 08/27/2023 2:24 PM EDT Height - - Body Mass Index 45.35 03/23/2023 8:21 AM EDT documented in this encounter Progress Notes * Bridgette Celis MD - 08/27/2023 2:23 PM EDT HPI: Maricel Flores is a 63 year old female with a history of type 2 diabetes mellitus, hypertension, hyperlipidemia, CAD, history of KS, status post stent, hypothyroidism, obstructive sleep apnea, nocturnal hypoxia, pulmonary hypertension, chronic diastolic heart failure, depression, anxiety, CKD stage 3-4, chronic neuropathy, history of CAD, mi, status post stent in 2019 in [place] as per the family, chronic vision changes and poor hand/finger dexterity especially in the both feet, history of chronic diastolic CHF, hyperkalemia, anxiety, depression with noncompliance with medications, was put back on Lexapro daily, history of pulmonary hypertension and on sildenafil, obesity, hypothyroidism last visit to get established with PCP was in our clinic with Dr. Mary Webb and had also seen Lazaro prior to that for acute visit, hx of visual disturbances from BL macular degeneration, went to emergency room with complaining of weakness. who presents with: Chief Complaint Patient presents with Hospital Follow-Up Pt is here for the hospital follow up. Chart reviewed from the hospital including admission note, Hand P, consult notes, labs, EKG, imaging and discharge note including discharge meds. Patient states she is feeling better since went back home. Pt was admitted to the hospital on 07/29/23 and was discharged on 08/07/23 . Admission Diagnosis : Acute cerebrovascular accident, hypertensive urgency, uncontrolled diabetes mellitus, hypokalemia, left foot ulcer, upper respiratory tract infection, ASHLY on CKD stage 3 to 4, UTI, left apical opacity As per the review of the chart, discussion with the patient and [id number] patient was feelingweak and fell onto her buttocks. Patient had also trouble finding words and EMS was called. Patienthad intermittent nausea without vomiting and some upper respiratory symptoms with rhinorrhea, coughby the time she went to emergency room. Patient denied any GI or symptoms. Patient did not have any other significant symptoms including dizziness, chest pain, shortness of breath, loss of consciousness or hitting head. She did have some tingling to her left side of the face though. Patient usually walks with a walker which is her baseline. It should be noted patient has been noncompliant with all her medications. In ER she was found to be hypertensive with a blood pressure of 226/94, hyperglycemia with a glucose of 574. She did receive Tylenol, 2 dosage of hydralazine 10 mg IV with repeat blood pressure of 166/69. She also received 15 units of insulin with a repeat blood glucose of 365. CT head without acute finding. Respiratory panel was positive for coronavirus. Patient had labs done which showed hemoglobin 10.7, WBC 7.8, platelet normal, ESR 57 CMP showed creatinine of 1.9 with BUN of 70. Anion gap 9 Phosphorus was slightly high 5.6, lipid panel with LDL of 134, TSH 2.2, procalcitonin 0.05 Hemoglobin A1c 14.1. Brain MRI without contrast showed 7 mm focus of diffusion restriction in the periventricular white matter of the right occipital lobe. 10 mm focus of diffusion restriction within left occipital lobe.Final report small acute infarct in both occipital lobes, consider embolic infarcts. X-ray chest showed mild cardiomegaly, no pneumonia. Consultation: Cardiology and Neurology was consulted for further evaluation. Carotid duplex showed [id number] atherosclerotic plaque, velocity measurements mildly compromised by suboptimal penetration. No evidence of hemodynamically significant stenosis though. CT angiogram Unremarkable for brain and neck Renal ultrasound showed no evidence of hydronephrosis or renal artery stenosis. TTE: EF 60 to 65%, moderate concentric LVH, grade 1 diastolic dysfunction, moderately dilated left atrium, [id number] mitral regurgitation, trace AR, no evidence of aortic stenosis, trace TR. Given significant fall risk and visual issues no anticoagulation was recommended by Neurology. Patient was evaluated for speech therapy, PT, OT. Advised to continue aspirin 325 mg orally once a day, dose of rosuvastatin was increased to20 mg orally once a day. Troponin was slightly high and possibly demand ischemia. Troponin trend was 96.8 -187 EKG showed normal sinus rhythm without any acute ST-T changes. While in the hospital patient's creatinine peaked to 4.09 and possibly due to contrast induced nephropathy, hypertensive emergency on admission, renal ultrasound showed no evidence of the hydronephrosis and after hydration creatinine improved to 1.9 before the discharge. Patient also reported to have UTI and urine culture grew Klebsiella and was treated with an antibiotic. CT chest showed 12 mm left apical opacity, indeterminate and may be inflammatory. It was recommended to get CT chest in 2 to 3 months' time and follow up with Pulmonary if needed. Pt has been followed up by field nurse case manager and specialists. Patient Active Problem List Diagnosis Code Pulmonary HTN ([facility]) I27.20 Coronary artery disease involving twin hills coronary artery of twin hills heart without angina pectoris I25.10 Chronic diastolic heart failure ([facility]) I50.32 Lymphedema I89.0 HTN, goal below 140/90 I10 Type 2 diabetes mellitus with hemoglobin A1c goal of less than 7.5% ([facility]) E11.9 Diabetic retinopathy associated with type 2 diabetes mellitus ([facility]) E11.319 Hidradenitis suppurativa L73.2 RADHA (obstructive sleep apnea) G47.33 Kidney disease, chronic, stage III (GFR 30-59 ml/min) ([facility]) N18.30 BERTA (generalized anxiety disorder) F41.1 Recurrent major depressive disorder, in full remission ([facility]) F33.42 Body mass index (BMI) of 40.0 to 44.9 in adult ([facility]) Z68.41 Current Outpatient Medications Medication Sig Dispense Refill Sildenafil Citrate 20 MG Oral Tablet (Revatio) Take 1 Tablet by mouth in the morning and 1 Tablet at noon and 1 Tablet before bedtime. Escitalopram Oxalate 20 MG Oral Tablet (Lexapro) Take 1 Tablet by mouth in the morning. hydrALAZINE HCl 100 MG Oral Tablet Take 1 Tablet by mouth in the morning and 1 Tablet at noon and 1Tablet before bedtime. Spironolactone 25 MG Oral Tablet (Aldactone) Take 1 Tablet by mouth in the morning. amLODIPine Besylate 10 MG Oral Tablet (Norvasc) TAKE 1 TABLET BY MOUTH ONCE DAILY 30 Tablet 3 Rosuvastatin Calcium 10 MG Oral Tablet (Crestor) TAKE 1 TABLET BY MOUTH ONCE DAILY 30 Tablet 3 Empagliflozin 25 MG Oral Tablet (Jardiance) Take 1 Tablet by mouth in the morning. 30 Tablet 11 Metoprolol Succinate ER 100 MG Oral Tablet Extended Release 24 Hour (toPROL XL) Take 1 Tablet by mouth in the morning. 30 Tablet 11 metFORMIN HCl ER 500 MG Oral Tablet Extended Release 24 Hour (Glucophage XR) 1 daily with dinner x 1 wk, then inc to 2 daily--st 03/23/2023 60 Tablet 2 Lisinopril 2.5 MG Oral Tablet (Prinivil) Take 4 Tablets by mouth in the morning. 90 Tablet 3 Lantus SoloStar 100 UNIT/ML Subcutaneous Solution Pen-injector Inject 25 Units under the skin in the morning. Lokelma 10 GM Oral Packet Take 1 Packet by mouth in the morning. Torsemide 20 MG Oral Tablet (Demadex) Take 1 Tablet by mouth in the morning and 1 Tablet before bedtime. No current facility-administered medications for this visit. The patient's medication list was reviewed and updated as needed. Review of patient's allergies indicates: No Known Allergies Past Medical History: Diagnosis Date Anxiety Congestive heart failure (HCC) Depression Diabetes mellitus (HCC) Hypertension Social History Socioeconomic History Marital status: Tobacco Use Smoking status: Never Smokeless tobacco: Never Vaping Use Vaping Use: Never used Substance and Sexual Activity Alcohol use: Not Currently Drug use: Never Sexual activity: Not Currently Family History Problem Relation Age of Onset Heart disease Father Heart Attack at 56 Coarctation of the aorta Son Cancer Mother Thyroid Stroke Mother x's 3 All system negative except as per hpi. OBJECTIVE: Blood pressure 142/62, pulse 60, temperature 36.3 C (97.3 F), resp. rate 16, weight 108.9 kg (240 lb), SpO2 96%. PHYSICAL EXAM: HEENT: PERRLA, EOMI, anicteric sclera, b/l tympanic membrane is pearly white, no erythema, no pharyngeal erythema, no lymphadenopathy, neck supple CVS: RRR, no murmurs, rubs or gallops, s1 s 2normal. RESP: clear to auscultation, no wheezing or crackles ABD: soft, NT/ND EXT: no edema, cyanosis, peripheral pulses palpable bilaterally No large joint swelling, no redness, range of motion normal. Skin normal. Gait normal. Mood stable No focal weakness ASSESSMENT AND PLAN: Cerebrovascular disease, arteriosclerotic, post-stroke (Primary) On statin, ASA. Chronic diastolic heart failure (HCC) Diabetic retinopathy of both eyes associated with type 2 diabetes mellitus, macular edema presence unspecified, unspecified retinopathy severity ([facility]) - PHARMACIST MEDS THERAPY MGMT REFERRAL OP Stage 3a chronic kidney disease (HCC) Body mass index (BMI) of 40.0 to 44.9 in adult (HCC) Recurrent major depressive disorder, in full remission (HCC) On lexapro. BERTA (generalized anxiety disorder) Coronary artery disease involving twin hills coronary artery of twin hills heart without angina pectoris Pulmonary HTN (HCC) On sidenafil RADHA (obstructive sleep apnea) Diabetic ulcer of left heel associated with type 2 diabetes mellitus, unspecified ulcer stage (HCC) HTN, goal below 130/80 Type 2 diabetes mellitus with hemoglobin A1c goal of less than 7.0% (HCC) - PHARMACIST MEDS THERAPY MGMT REFERRAL OP Hospital discharge follow-up - DISCH MED RECON CUR MED LIS Follow Up: Return in about 3 months (around 11/27/2023). Bridgette Celis MD documented in this encounter Nursing Notes * Liz Rojas LPN - 08/27/2023 2:24 PM EDT The patient has been properly identified by confirmation of name and date of . Chief Complaint Patient presents with Hospital Follow-Up documented in this encounter Plan of Treatment Upcoming Encounters Date Type Department Care Team (Late st Contact Info) Description 09/04/2023 9:00 AM EDT Office Visit Nephrology, [facility] [address] [place] [phone] Andrew Colorado MD [address] [place] [address] [address] [phone] 09/07/2023 11:20 AM EDT Office Visit Neurology State Cristhian Brooks [address] [place] [phone] Lizabeth Marquez PA-C [address] [phone] Pending Results Name Type Priority Associated Diagnoses Date /Time BASIC METABOLIC PANEL Lab Routine Type 2 diabetes mellitus with hemoglobin A1c goal of less than 7.0% (HCC) 08/27/2023 4:02 PM EDT Scheduled Orders Name Type Priority Associated Diagnoses Orde r Schedule BASIC METABOLIC PANEL Lab Routine Type 2 diabetes mellitus with hemoglobin A1c goal of less than 7.0% (HCC) Expected: 08/27/2023 (Approximate), Expires: 08/26/2024 Scheduled Referrals Name Type Priority Associated Diagnoses Orde r Schedule PHARMACIST MEDS THERAPY MGMT REFERRAL OP Referral Within 10 days (routine) Diabetic retinopathy of both eyes associated with type 2 diabetes mellitus, macular edema presence unspecified, unspecified retinopathy severity (HCC) Type 2 diabetes mellitus with hemoglobin A1c goal of less than 7.0% (HCC) Ordered: 08/27/2023 PULMONARY REFERRAL OP Referral Within 30 days (routine) Pulmonary nodule 1 cm or greater in diameter Ordered: 08/27/2023 CARDIOLOGY REFERRAL OP Referral Within 30 days (routine) Coronary artery disease involving twin hills coronary artery of twin hills heart without angina pectoris Ordered: 08/27/2023 PODIATRY REFERRAL OP Referral Within 30 d ays (routine) Chronic ulcer of great toe of left foot, unspecified ulcer stage (HCC) Ordered: 08/27/2023 Health Maintenance Due Date Last Done Comments [...] exists DXA Scan 2023 HbA1c 07/20/2023 01/17/2023, 070 10/2021, 09/24/2021, Additional history exists Albumin/Creatinine Ratio 01/18/2024 01/17/2023 CKD PHOS USE SMARTSET [id number] 01/18/2024 01/17/2023, 0 12/25/2019 GFR 02/15/2024 08/15/2023, 07/17, 08/08/2023, Additional history exists Diabetic Foot Exam 03/23/2024 03/23/2023 CKD HGB USE SMARTSET 12640 08/14/202408/14, 08/08/2023, 03/23/2023, Additional history exists Depression [...] as of this encounter Visit Diagnoses Diagnosis Cerebrovascular disease, arteriosclerotic, post-stroke- Primary Cerebral atherosclerosis Chronic diastolic heart failure (HCC) Chronic diastolic heart failure Diabetic retinopathy of both eyes associated with type 2 diabetes mellitus, macular edema presence unspecified, unspecified retinopathy severity (HCC) Stage 3a chronic kidney disease (HCC) Body mass index (BMI) of 40.0 to 44.9 in adult (HCC) Recurrent major depressive disorder, in full remission (HCC) BERTA (generalized anxiety disorder) Generalized anxiety disorder Coronary artery disease involving twin hills coronary artery of twin hills heart without angina pectoris Pulmonary HTN (HCC) Other chronic pulmonary heart diseases RADHA (obstructive sleep apnea) Obstructive sleep apnea (adult) (pediatric) Diabetic ulcer of left heel associated with type 2 diabetes mellitus, unspecified ulcer stage (HCC) HTN, goal below 130/80 Unspecified essential hypertension Type 2 diabetes mellitus with hemoglobin A1c goal of less than 7.0% (HCC) Hospital discharge follow-up Other follow-up examination Pulmonary nodule 1 cm or greater in diameter Chronic ulcer of great toe of left foot, unspecified ulcer stage (HCC) documented in this encounter Advance Directives Healthcare Agents on File Name Relationship [facility] Tomi Rao Adult Child Health Care Agen t (per Health Care Power of Homicide Squad Captain document) Care Teams Foam Gun Operator Relationship Specialty Start Date End Date Veronique Webb MD [address] [facility] [place] [address] PCP - General Internal Medicine 08/27/23 documented as of this encounter
--- OUTSIDE RECORDS SUMMARY | 2023-11-18 13:41 | External Medical Summary | Summary of Care ---
Author Name Unknown Organization [facility] Address [address] [place] [address] Phone [phone] Care Team Providers Care Peoplesoft Financials Consultant Name Role Phone Veronique Webb MD Primary Care Provider Encounter Details Date Type Department Care Team (Late st Contact Info) Description 09/07/2023 1:00 PM EDT Home Visit Care Coordination and Integration [address] [place], [place] [phone] Mary Holman, Community [facility] Hand Zipper Trimmer [address], [place] [phone] Allergies No known active allergiesdocumented as of [...] diastolic heart failure (HCC),Coronary artery disease involving [place] coronary artery of pauma heart without angina pectoris,Uncontrolled type 2 diabetes [...] HTN 01/17/2023 Coronary artery disease invo lving [place] coronary artery of [place] heart without angina pectoris 01/17/2023 Chronic diastolic [...] Next Due Pneumococcal Conjugate Vacci ne, 20-valent ([id number]) 03/23/2023 Pneumococcal Polysaccharide PPV23 (Pneumovax) 01/06/2008 Seasonal [...] Sign Reading Time Taken Comments Blood Pressure 132/70 09/07/2023 1:26 PM EDT Pulse 60 09/07/2023 1:26 PM EDT Temperature 37.3 C (99.1 F) 09/07/2023 1:26 PM ED T Respiratory Rate 18 09/07/2023 1:26 PM EDT Oxygen Saturation 98% 09/07/2023 1:26 PM EDT Inhaled Oxygen Concentration - - Weight - - Height - - Body Mass Index - - documented in this encounter Progress Notes * Mary Holman [facility] Hand Zipper Trimmer - 09/07/2023 1:16 PM EDT Telemedicine visit: No Community Health Hand Zipper Trimmer (LITO) documentation: CHW cold h/v per ELENA Antoine CHW completed medication verification with no noted discrepancies. Pt. States her daughter in law, Vanesa completes her medications and makes sure she takes them correctly. Pt. Denies any SDOH issues Home safety assessment completed. Pt. Lives on first floor of apartment, with bathroom and bedroom on same level. Pt states she has DME for bathroom. Open floor plan for pt. To maneuver easily with standard walker. Pt.has low vision thus needing the open floor plan to allow for ease and safety withambulation. CHW provided the application for assistance to get waivers provided, [facility] handbook, application for PACE/PACENET. Pt. Stated with her low vision she needs help to complete and her family will do that. CHW offered, however, pt. Couldn't provide all of the information needed to complete applications. CHW instructed pt. To call CM if assistance is needed to complete applications. CHW educated pt. To weigh herself daily and record it and check her BS and keep a record. CHW provided pt. With a booklet to be able to document both BS and weights. CHW confirmed pt. Has the contact information for CM. documented in this encounter Plan of Treatment Upcoming Encounters Date Type Department Care Team ([facility] Contact Info) Description 10/02/2023 3:00 PM EDT Office Visit Podiatry [address] [place] [phone] Higinio Ragland, DPShahab [address] [place] [address] 10/28/2023 1:00 PM EDT Office Visit Pulmonary Medicine, [facility] [address] [facility] [place] [address] Eduardo Christine MD [address] [place] [address] 11/18/2023 9:00 AM EDT Office Visit Cardiology, [facility] [address] [place] [address] Stevie Villegas, 132 [facility] [address] 12/29/2023 3:40 PM EDT Office Visit General Internal Medicine [facility] [address] [place] [address] Bridgette Celis MD [address] [facility] [address] Health Maintenance Due Date Last Done Comments [...] Ratio 01/18/2024 01/17/2023 CKD PHOS USE SMARTSET 71766 01/18/2024 01/17/2023, 0 12/25/2019 GFR 02/27/2024 08/27/2023, 03/0 07/2023, 08/13/2023, Additional history exists Diabetic Foot Exam 03/23/2024 03/23/2023 CKD HGB USE SMARTSET 29743 08/14/202408/14, 08/08/2023, 03/23/2023, Additional history exists Depression [...] Agen t (per Health Care Power of Manufacturing Leader document) Care Teams Pe[employer] Consultant Relationship Specialty Start Date End Date Veronique Webb MD [address] [place] [address] PCP - General Internal Medicine 08/27/23 documented as of this encounter
--- OUTSIDE RECORDS SUMMARY | 2023-11-18 13:41 | External Medical Summary | Summary of Care ---
Author Name Unknown Organization [facility] Address [address] [place] [address] Phone [phone] Care Team Providers Care Drawing In Machine Tender Name Role Phone Veroinque Webb MD Primary Care Provider [phone] Encounter Details Date Type Department Care Team (Late st Contact Info) Description 09/07/2023 1:00 PM EDT Home Visit Care Coordination and Integration [address] [place], [place] [phone] Mary Holman, Community Health Computer Numerical Control Operator [address], [place] [phone] Allergies No known active allergiesdocumented as of [...] diastolic heart failure (HCC),Coronary artery disease involving [place] coronary artery of [place] heart without angina pectoris,Uncontrolled type 2 diabetes [...] HTN 01/17/2023 Coronary artery disease invo lving [place] coronary artery of [place] heart without angina pectoris 01/17/2023 Chronic diastolic [...] Next Due Pneumococcal Conjugate Vacci ne, 20-valent ([id number]) 03/23/2023 Pneumococcal Polysaccharide PPV23 (Pneumovax) 01/06/2008 Seasonal [...] Progress Notes * Mary Holman [facility] Computer Numerical Control Operator - 09/07/2023 1:16 PM EDT Telemedicine visit: No Community Health Computer Numerical Control Operator (LITO) documentation: CHW cold h/v per ELENA [...] application for assistance to get waivers provided, [facility] handbook, application for PACE/PACENET. Pt. Stated with [...] Upcoming Encounters Date Type Department Care Team ([facility] Contact Info) Description 10/02/2023 3:00 PM EDT Office Visit Podiatry [address] [place] [phone] Higinio Ragland, DPShahab [address] [place] [address] 10/28/2023 1:00 PM EDT Office Visit Pulmonary Medicine, [facility] [address] [place] [address] Eduardo Christine MD [address] [place] [address] 11/18/2023 9:00 AM EDT Office Visit Cardiology, [facility] 132 [place] [address] Stevie Villegas, [address] [place] [address] 12/29/2023 3:40 PM EDT Office Visit General Internal Medicine [facility] [address] [place] [address] Bridgette Celis MD [address] [place] [address] Health Maintenance Due Date Last Done Comments [...] Ratio 01/18/2024 01/17/2023 CKD PHOS USE SMARTSET 35178 01/18/2024 01/17/2023, 0 12/25/2019 GFR 02/27/2024 08/27/2023, 03/0 07/2023, 08/13/2023, Additional history exists Diabetic Foot Exam 03/23/2024 03/23/2023 CKD HGB USE SMARTSET 88793 08/14/202408/14, 08/08/2023, 03/23/2023, Additional history exists Depression [...] Agen t (per Health Care Power of Accountant Helper document) Care Teams Drawing In Machine Tender Relationship Specialty Start Date End Date Veronique Webb MD [address] [place] [address] PCP - General Internal Medicine 08/27/23 documented as of this encounter
--- OUTSIDE RECORDS SUMMARY | 2023-11-18 13:42 | External Medical Summary ---
Author Name Unknown Address Unknown Organization K01:LABORATORY [facility] - [address] [place] [address] Laboratory Report Ordering Provider Test Date Status KEITH RUTH 08/27/2023 16:02:44 Final Observation Date Value Abnormality Reference (Units ) Status BUN 08/27/2023 16:02:44 43 Above high normal 6-20 (mg/dL) Final Creatinine 08/27/2023 16:02:44 1.2 Above high normal 0.5-1.0 (mg/dL) Final Glomerular filtration rate/1.73 sq M.predicted [Volume Rate/Area] in Serum, Plasma or Blood by Creatinine-based formula (CKD-EPI) 08/27/2023 16:02:44 48 Below low normal >=60 (mL/min) Final eGFR is calculated based on the CKD-EPI 2020 equation SODIUM 08/27/2023 16:02:44 141 135-146 (m mol/L) Final Potassium 08/27/2023 16:02:44 4.0 3.5-5.1 (m mol/L) Final Cl 08/27/2023 16:02:44 103 98-107 (mm ol/L) Final CO2 08/27/2023 16:02:44 28 22-32 (mmo l/L) Final Anion gap 08/27/2023 16:02:44 10 7-15 (mmol /L) Final Glucose 08/27/2023 16:02:44 105 70-120 (mg /dL) Final Calcium 08/27/2023 16:02:44 9.5 8.4-10.2 ( mg/dL) Final Performing Location LAB[facility]ORY [facility] - [address] [place] [address]
--- OUTSIDE RECORDS SUMMARY | 2023-11-18 13:42 | External Medical Summary | Summary of Care ---
Author Name Unknown Organization [facility] Address [address] [place] [address] Phone [phone] Care Team Providers Care Sap Portal Developer Name Role Phone Unavailable Primary Care Provider Unavailabl e Reason for Referral * Evaluate & Treat - Unlimited Visits (Within 3 days (urgent)) - Authorized Specialty Diagnoses / Procedures Referred By Jones crespo Referred To Contact Chip Nurse / Home Care Diagnoses Type 2 diabetes mellitus with hemoglobin A1c goal of less than 7.5% (HCC) Hospital discharge follow-up Veronique Webb MD [address] [place] [address] Referral ID Status Reason Start Date Expiration Date Visits Requested Visits Authorized [id number] Authorized Specialty Services Required 08/20/2023 999 999 Question Answer Referral Priority Within 3 days (urgent) Where should this appointment be scheduled? Haylee Comments Referred for Medical Home Care Management * Evaluate & Treat - Unlimited Visits (Within 3 days (urgent)) - Authorized Specialty Diagnoses / Procedures Referred By Jones crespo Referred To Contact Pharmacist / Pharmacy Diagnoses Type 2 diabetes mellitus with hemoglobin A1c goal of less than 7.5% (HCC) Veronique Webb MD [address] [place] [address] Referral ID Status Reason Start Date Expiration Date Visits Requested Visits Authorized [id number] Authorized Specialty Services Required 08/20/2023 99 99 Question Answer Referral Priority Within 3 days (urgent) Where should this appointment be scheduled? Haylee Referring Provider Role: Primary Care Reason for Referral: DM Target A1c: < 7 Comments Pharmacist Medication Therapy Management: Minimum frequency patient should be seen in person for medication management: as appropriate per clinical condition and patient status By my signature, I understand that my patient Maricel Flores will have her medication therapy managed by the [facility] ([facility]) per established policies, procedures, and protocols. I also certify that this referral may serve as an initiation of service for the management of drug therapy in the above noted patient. [facility] providers will be responsible for scheduling patient visits, obtaining appropriate laboratory studies, and adjusting medication management therapy per patient's need, in addition to those roles spelled out in the clinic policy, procedures, and drug management protocols. I understand that the service provided by the [facility] Clinic is voluntary and have informed patient that they can refuse the service at their discretion. I am aware that the [facility] Clinic will provide me with a copy of the patient encounter via my [employer]. I authorize the [facility] Clinic to carry out these activities on my behalf. I consider this program to be a necessary part of the patient's medical care. Veronique Webb MD Reason for Visit * Reason Onset Date Comments FYI 08/20/2023 Encounter Details Date Type Department Care Team (Late st Contact Info) Description 08/20/2023 Telephone General Internal Medicine [facility] [address] [place] [address] Veronique Webb MD [address] [place] [address] FYI Allergies No known active allergiesdocumented as of this encounter (statuses as of 08/21/2023) Medications Medication Sig Dispensed Refills Start Date End Date Status Sildenafil Citrate 20 MG Oral Tablet (Revatio) Take 1 Tablet by mouth in the morning and 1 Tablet at noon and 1 Tablet before bedtime. 0 07/08/2022 Active Trulicity 3 MG/0.5ML Subcutaneous Solution Pen-injector once a week. 0 11/14/2022 Active Insulin Detemir 100 UNIT/ML Subcutaneous Solution Pen-injector (Levemir) Inject 45 Units under the skin in the morning and 45 Units before bedtime. 0 11/25/2022 11/25/2023 Active Escitalopram Oxalate 20 MG Oral Tablet (Lexapro) Take 1 Tablet by mouth in the morning. 0 09/15/2022 Active hydrALAZINE HCl 100 MG Oral Tablet Take 1 Tablet by mouth in the morning and 1 Tablet at noon and 1 Tablet before bedtime. 0 01/17/2023 Active Spironolactone 25 MG Oral Tablet (Aldactone)Indication s:Chronic diastolic heart failure (HCC) Take 1 Tablet by mouth in the morning. 0 01/17/2023 Active Torsemide 20 MG Oral Tablet (Demadex)Indications: Chronic diastolic heart failure (HCC) Take 1 Tablet by mouth in the morning. 0 01/17/2023 Active amLODIPine Besylate 10 MG Oral Tablet (Norvasc) TAKE 1 TABLET BY MOUTH ONCE DAILY 30 Tablet 3 03/08/2023 Active Rosuvastatin Calcium 10 MG Oral Tablet (Crestor) TAKE 1 TABLET BY MOUTH ONCE DAILY 30 Tablet 3 03/08/2023 Active Empagliflozin 25 MG Oral Tablet (Jardiance)Indication [...] diastolic heart failure (HCC),Coronary artery disease involving [place] coronary artery of [place] heart without angina pectoris,Uncontrolled type 2 diabetes mellitus with hyperglycemia (HCC),RADHA (obstructive sleep apnea) Take 4 Tablets by mouth in the morning. 90 Tablet 3 03/23/2023 Active documented as of this encounter (statuses as of 08/21/2023) Active Problems Problem Noted Date Diagnosed Date Body mass index (BMI) of 40.0 to 44.9 in adult 1 06/27/2022 Overview: Per Obesity protocol Pulmonary HTN 01/17/2023 Coronary artery disease invo lving [place] coronary artery of [place] heart without angina pectoris 01/17/2023 Chronic diastolic [...] as of this encounter (statuses as of 08/21/2023) Immunizations Name Administration Dates Next Due Pneumococcal Conjugate Vacci ne, 20-valent ([id number]) 03/23/2023 Pneumococcal Polysaccharide PPV23 (Pneumovax) 01/06/2008 Seasonal [...] Date Recorded PHQ Adult Total Score 0 03/23/2023 Sex and Gender Information Value Date Recorded Sex Assigned at Not on file Gender Identity Not on file Sexual Orientation Not on file Job Start Date Occupation Industry Not on file Not on file Not on file documented as of this encounter Miscellaneous Notes * Telephone Encounter - GambleDahiana, EVA - 08/21/2023 1:25 PM EST Obtained d/c summary from [facility]. Left message with medical records at [facility] to fax summary to us. Spoke with Dick from [employer] and relayed message below. * Telephone Encounter - Veronique Webb MD - 08/20/2023 8:10 PM EST Last seen by Lazaro Pereira PA-C in January. [facility] clinic discharge her in mar as she did not call to schedule a reschedule, new referral placed and to shelter case manager Please obtain discharge summary from the hospital and from [facility] Follow instructions from [facility] until hospital follow-up appointment next week. Hemoglobin AIC Results: Lab Results Component Value Date/Time HEMOGLOBIN A1C - [facility] 13.3 (H) 01/17/2023 09:29 AM * Telephone Encounter - Debi Moeller LPN - 08/20/2023 3:47 PM EST Admission/Start of Care Admission/Start of Care: Chely RN, Calling from: [employer] Referral ordered by: [employer] Referral received for: Long Term, PT, and OT Planned start of care date:Yes, Date 08/19 Start of care completed on: YES Report/Concerns of:None Symptoms: none Vitals: T 99.2 RR 18 BP 142/68 SP O2 97% RA Blood sugar 204, random BS Narrative: Chely was at patients home earlier today for start of care. HH need parameters for her glucose, or if they should use nursing judgement. Patient has macular degeneration and cannot see well and she does have caregivers that do help her. She takes Metformin and Lantus but does not have a sliding scale. Please advise They will call with any updates or additional concerns from the upcoming HH visit. Last Office Visit: 03/23/2023 Has patient been scheduled or seen in the office for a follow up visit: Yes- on08/24 Advised that orders will be signed by No primary care provider on file. and to fax to the office for signature. Call back [employer] with advice or orders at [phone] Fax number: [phone] * Telephone Encounter - Connie Hurd OSA - 08/20/2023 3:45 PM EST Reason for patient's call: Talk to a nurse Caller was transferred to Debi at the nurse line. documented in this encounter Plan of Treatment Upcoming Encounters Date Type Department Care Team (Late st Contact Info) Description 08/25/2023 10:20 AM EDT Office Visit General Internal Medicine [address] [place] [address] Veronique Webb MD [address] [place] [address] 09/04/2023 9:00 AM EDT Office Visit Nephrology, [address] [place] [address] Andrew Colorado MD [address] [place] [address] 09/07/2023 11:20 AM EDT Office Visit Neurology [facility] [address] [facility] [address] Lizabeth Marquez PA-C [address] [place] [address] 11/16/2023 10:00 AM EDT Office Visit Nephrology, [facility] [address] [place] [address] Rene Mo MD [address] [place] [address] [place] [address] Scheduled Referrals Name Type Priority Associated Diagnoses Orde r Schedule PHARMACIST MEDS THERAPY MGMT REFERRAL OP Referral Within 3 days (urgent) Type 2 diabetes mellitus with hemoglobin A1c goal of less than 7.5% (HCC) Ordered: 08/20/2023 MEDICAL HOME CASE MANAGEMENT REFERRAL OP Referral Within 3 days (urgent) Type 2 diabetes mellitus with hemoglobin A1c goal of less than 7.5% (HCC) Hospital discharge follow-up Ordered: 08/20/2023 Health Maintenance Due Date Last Done Comments [...] Ratio 01/18/2024 01/17/2023 CKD PHOS USE SMARTSET 50254 01/18/2024 01/17/2023, 0 12/25/2019 GFR 02/15/2024 08/15/2023, 07/17, 08/08/2023, Additional history exists Depression Screening 03/23/2024 03/23/2023 Diabetic Foot Exam 03/23/2024 03/23/2023 CKD HGB USE SMARTSET 15287 08/14/202408/14, 08/08/2023, 03/23/2023, Additional history exists DTaP,Tdap,and Td Vaccines (3 - Td or Tdap) 03/23/2033 03/23/2023, 08/28/2006 Pneumococcal Vaccine: 65+ Years Completed 03/23/2023, 01/06/2008 HIV Screening Completed 08/07/2023 Hepatitis C Screening Completed 08/07/2023 GARDASIL-HPV IMMUNIZATION SERIES Aged Out No longer [...] as of this encounter Visit Diagnoses Diagnosis Hospital discharge follow-up- Primary Other follow-up examination Type 2 diabetes mellitus with hemoglobin A1c goal of less than 7.5% (HCC) documented in this encounter
--- OUTSIDE RECORDS SUMMARY | 2023-11-18 13:42 | External Medical Summary | Summary of Care ---
Author Name Unknown Organization [facility] Address [address] [place] [address] Phone [phone] Care Team Providers Care Varnishing Machine Operator Name Role Phone Unavailable Primary Care Provider Unavailabl e Encounter Details Date Type Department Care Team (Late st Contact Info) Description 08/03/2023 Result Scan Unspecified Department Kelin Gregory MD [address] [place], [place] [phone] <No scans attached> Allergies No known active allergiesdocumented as of this encounter (statuses as of 08/19/2023) Medications Medication Sig Dispensed Refills Start Date [...] diastolic heart failure (HCC),Coronary artery disease involving [place] coronary artery of [place] heart without angina pectoris,Uncontrolled type 2 diabetes mellitus with hyperglycemia (HCC),RADHA (obstructive sleep apnea) Take 4 Tablets by mouth in the morning. 90 Tablet 3 03/23/2023 Active documented as of this encounter (statuses as of 08/19/2023) Active Problems Problem Noted Date Diagnosed Date Body mass index (BMI) of 40.0 to 44.9 in adult 1 06/27/2022 Overview: Per Obesity protocol Pulmonary HTN 01/17/2023 Coronary artery disease invo lving [place] coronary artery of [place] heart without angina pectoris 01/17/2023 Chronic diastolic [...] as of this encounter (statuses as of 08/19/2023) Immunizations Name Administration Dates Next Due Pneumococcal Conjugate Vacci ne, 20-valent ([id number]) 03/23/2023 Pneumococcal Polysaccharide PPV23 (Pneumovax) 01/06/2008 Seasonal [...] AM EDT Office Visit [facility] [place] [address] [place] [address] Veronique Webb MD [address] [place] [address] [address] 09/04/2023 9:00 AM EDT Office Visit Nephrology, [facility] [address] [place] [address] [address] Andrew Colorado MD [address] [place] [address] [place] [address] 09/07/2023 11:20 AM EDT Office Visit Neurology [facility] [place] [address] [facility] [place] [address] Lizabeth Marquez PA-C [address] [facility] [place] [address] 11/16/2023 10:00 AM EDT Office Visit Nephrology, [facility] [address] [facility] [place] [address] Rene Mo MD [address] [facility] [place] [address] Health Maintenance Due Date Last Done Comments HIV Screening 1973 Diabetic Eye Exam 1976 Hepatitis C Screening 1976 Cologuard 2003 Colonoscopy 2003 Colorectal Cancer [...] Ratio 01/18/2024 01/17/2023 CKD PHOS USE SMARTSET 43278 01/18/2024 01/17/2023, 0 12/25/2019 GFR 02/15/2024 08/15/2023, 07/17, 08/08/2023, Additional history exists Depression Screening 03/23/2024 03/23/2023 Diabetic Foot Exam 03/23/2024 03/23/2023 CKD HGB USE SMARTSET 16563 08/14/202408/14, 08/08/2023, 03/23/2023, Additional history exists DTaP,Tdap,and [...] Date/Time Associated Diagnosis Comments RADIOLOGY SCANNED RESULT 08/03/2023 documented in this encounter Results * RADIOLOGY SCANNED RESULT (08/03/2023) 08/03/2023 Kelin Gregory MD DIAGNOSTIC RADIOL [facility] SERVICES documented in this encounter
--- OUTSIDE RECORDS SUMMARY | 2023-11-18 13:42 | External Medical Summary ---
Author Name Unknown Address Unknown Organization K0G:LABORATORY [place] [address] - [address] [place] [address] Laboratory Report Ordering Provider Test Date Status TRES ATKINSON 08/15/2023 05:26:24 Final Observation Date Value Abnormality Reference (Units ) Status BUN 08/15/2023 05:26:24 58 Above high normal 6-20 (mg/dL) Final Creatinine 08/15/2023 05:26:24 1.2 Above high normal 0.5-1.0 (mg/dL) Final Glomerular filtration rate/1.73 sq M.predicted [Volume Rate/Area] in Serum, Plasma or Blood by Creatinine-based formula (CKD-EPI) 08/15/2023 05:26:24 49 Below low normal >=60 (mL/min) Final eGFR is calculated based on the CKD-EPI 2020 equation SODIUM 08/15/2023 05:26:24 141 135-146 (m mol/L) Final Potassium 08/15/2023 05:26:24 4.0 3.5-5.1 (m mol/L) Final Cl 08/15/2023 05:26:24 103 98-107 (mm ol/L) Final CO2 08/15/2023 05:26:24 28 22-32 (mmo l/L) Final Anion gap 08/15/2023 05:26:24 10 7-15 (mmol /L) Final Glucose 08/15/2023 05:26:24 65 Below low normal 70- 120 (mg/dL) Final Calcium 08/15/2023 05:26:24 8.7 8.4-10.2 ( mg/dL) Final Performing Location [facility] [facility] [place] [address]
--- OUTSIDE RECORDS SUMMARY | 2023-11-18 13:42 | External Medical Summary | Summary of Care ---
Author Name Unknown Organization [facility] Address [address] [place] [address] Phone [phone] Care Team Providers Care Hot Molder Name Role Phone Veronique Webb MD Primary Care Provider [phone] Reason for Referral * Evaluate & Treat - Unlimited Visits (Within 30 days (routine)) - Authorized Specialty Diagnoses / Procedures Referred By Contac t Referred To Contact Podiatry Diagnoses Chronic ulcer of great toe of left foot, unspecified ulcer stage (HCC) Bridgette Celis MD [address] [place] [address] Referral ID Status Reason Start Date Expiration Date Visits Requested Visits Authorized [id number] Authorized Specialty Services Required 08/27/2023 999 999 [...] / Cardiology Diagnoses Coronary artery disease involving elim ira coronary artery of elim ira heart without angina pectoris Bridgette Celis MD [address] [place] [address] Referral ID Status Reason Start Date Expiration Date Visits Requested Visits Authorized [id number] Authorized Specialty Services Required 08/27/2023 999 999 Question Answer Referral Priority Within 30 days (routine) Where should this appointment be scheduled? [facility] To which of the following clinics are you referring your patient? General Cardiology Clinic Comments Recent CVA, possible embolic and had hypertensive emergency. Hx of CAD, [place] when was in [place], s/p stent placed. Thanks. * Evaluate & Treat - Unlimited Visits (Within 30 days (routine)) - Authorized Specialty Diagnoses / Procedures Referred By Contes crespo Referred To Contact Pulmonary Diseases / Pulmonary Diagnoses Pulmonary nodule 1 cm or greater in diameter Bridgette Celis MD [address] [facility] [place] [address] Referral ID Status Reason Start Date Expiration Date Visits Requested Visits Authorized [id number] Authorized Specialty Services Required 08/27/2023 999 999 [...] 7.0% (HCC) Bridgette Celis MD [address] [facility] [place] [address] Referral ID Status Reason Start Date Expiration Date Visits Requested Visits Authorized [id number] Authorized Specialty Services Required 08/27/2023 99 99 [...] have her medication therapy managed by the [facility] Medication Therapy Disease Management Clinic (MTD) per established policies, procedures, and protocols. I also certify that this referral may serve as an initiation of service for the management of drug therapy in the above noted patient. [facility] providers will be responsible for scheduling patient visits, obtaining appropriate laboratory studies, and adjusting medication management therapy per patient's need, in addition to those roles spelled out in the clinic policy, procedures, and drug management protocols. I understand that the service provided by the [facility] Clinic is voluntary and have informed patient that they can refuse the service at their discretion. I am aware that the [facility] Clinic will provide me with a copy of the patient encounter via my [employer]. I authorize the [facility] Clinic to carry out these activities on my behalf. I consider this program to be a necessary part of the patient's medical care. Bridgette Celis MD Reason for Visit * Reason Onset Date Comments Hospital Follow-Up Hospital Follow-Up 08/27/2023 Encounter Details Date Type Department Care Team (Latest Contact Info) Description 08/27/2023 2:20 PM EDT Office Visit General Internal Medicine [facility] [place] [address] [place] [address] Bridgette Celis MD 200 [facility] [place] [address] Cerebrovascular disease, arteriosclerotic, post-stroke*; Chronic diastolic heart failure (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); Stage 3a chronic kidney disease ([facility]); Body mass index (BMI) of 40.0 to 44.9 in adult ([facility]); Recurrent major depressive disorder, in full remission ([facility]); BERTA (generalized anxiety disorder); Coronary artery disease involving elim ira coronary artery of elim ira heart without angina pectoris; Pulmonary HTN ([facility]); RADHA (obstructive sleep apnea); Diabetic ulcer of left heel associated with type 2 diabetes mellitus, unspecified ulcer stage ([facility]); HTN, goal below 130/80; Type 2 diabetes [...] diastolic heart failure (HCC),Coronary artery disease involving elim ira coronary artery of elim ira heart without angina pectoris,Uncontrol led type 2 [...] HTN 01/17/2023 Coronary artery disease invo lving elim ira coronary artery of elim ira heart without angina pectoris 01/17/2023 Chronic [...] Next Due Pneumococcal Conjugate Vacci ne, 20-valent ([id number]) 03/23/2023 Pneumococcal Polysaccharide PPV23 (Pneumovax) 01/06/2008 Seasonal [...] diabetes mellitus, hypertension, hyperlipidemia, CAD, history of [place], status post stent, hypothyroidism, obstructive sleep apnea, nocturnal hypoxia, pulmonary hypertension, chronic diastolic heart failure, depression, anxiety, CKD stage 3-4, chronic neuropathy, history of CAD, mi, status post stent in 2019 in [place] as per the family, chronic vision changes [...] the chart, discussion with the patient and llpunlej-fq-lna patient was feelingweak and fell onto her [...] consulted for further evaluation. Carotid duplex showed urec-yd-fwqnpfuj atherosclerotic plaque, velocity measurements mildly compromised by suboptimal penetration. No evidence of hemodynamically significant stenosis though. CT angiogram Unremarkable for brain and neck Renal ultrasound showed no evidence of hydronephrosis or renal artery stenosis. TTE: EF 60 to 65%, moderate concentric LVH, grade 1 diastolic dysfunction, moderately dilated left atrium, cofm-mu-tknjovot mitral regurgitation, trace AR, no evidence of [...] needed. Pt has been followed up by registered nurse hh case manager and specialists. Patient Active Problem List Diagnosis Code Pulmonary HTN ([facility]) I27.20 Coronary artery disease involving elim ira coronary artery of elim ira heart without angina pectoris I25.10 Chronic diastolic heart failure ([facility]) I50.32 Lymphedema I89.0 HTN, goal below 140/90 I10 Type 2 diabetes mellitus with hemoglobin A1c goal of less than 7.5% ([facility]) E11.9 Diabetic retinopathy associated with type 2 diabetes mellitus ([facility]) E11.319 Hidradenitis suppurativa L73.2 RADHA (obstructive sleep apnea) G47.33 Kidney disease, chronic, stage III (GFR 30-59 ml/min) ([facility]) N18.30 BERTA (generalized anxiety disorder) F41.1 Recurrent major depressive disorder, in full remission ([facility]) F33.42 Body mass index (BMI) of 40.0 to 44.9 in adult ([facility]) Z68.41 Current Outpatient Medications Medication Sig Dispense [...] macular edema presence unspecified, unspecified retinopathy severity ([facility]) - PHARMACIST MEDS THERAPY MGMT REFERRAL OP Stage 3a chronic kidney disease (HCC) Body mass index (BMI) of 40.0 to 44.9 in adult (HCC) Recurrent major depressive disorder, in full remission (HCC) On lexapro. BERTA (generalized anxiety disorder) Coronary artery disease involving elim ira coronary artery of elim ira heart without angina pectoris Pulmonary HTN (HCC) [...] 09/04/2023 9:00 AM EDT Office Visit Nephrology, [facility] [address] [place] [address] Andrew Colorado MD [address] [place] [address] [place] [address] 09/07/2023 11:20 AM EDT Office Visit Neurology State Cristhian Brooks [address] [place] [address] Lizabeth Marquez PA-C [address] [phone] Pending Results Name Type Priority Associated Diagnoses Date /Time BASIC METABOLIC PANEL Lab Routine Type 2 diabetes mellitus with hemoglobin A1c goal of less than 7.0% (HCC) 08/27/2023 3:58 PM EDT Scheduled Orders Name Type Priority [...] 30 days (routine) Coronary artery disease involving elim ira coronary artery of elim ira heart without angina pectoris Ordered: 08/27/2023 PODIATRY [...] Ratio 01/18/2024 01/17/2023 CKD PHOS USE SMARTSET 09375 01/18/2024 01/17/2023, 0 12/25/2019 GFR 02/15/2024 08/15/2023, 07/17, 08/08/2023, Additional history exists Diabetic Foot Exam 03/23/2024 03/23/2023 CKD HGB USE SMARTSET 30107 08/14/202408/14, 08/08/2023, 03/23/2023, Additional history exists Depression [...] Generalized anxiety disorder Coronary artery disease involving elim ira coronary artery of elim ira heart without angina pectoris Pulmonary HTN (HCC) [...] Agents on File Name Relationship Healthcare Agent [facility] Tomi Rao Adult Child Health Care Agen t (per Health Care Power of Cath Lab Tech document) Care Teams Hot Molder Relationship Specialty Start Date End Date Veronique Webb MD 200 [facility] [place] [address] PCP - General Internal Medicine 08/27/23 documented as of this encounter
--- OUTSIDE RECORDS SUMMARY | 2023-11-18 13:42 | External Medical Summary | Summary of Care ---
Author Name Unknown Organization [facility] Address [address] [facility] [place] [address] Phone [phone] Care Team Providers Care Siding Applicator Name Role Phone Unavailable Primary Care Provider Unavailabl e Reason for Visit * Reason Onset Date Comments Hospital Follow-Up 08/07/2023 Encounter Details Date Type Department Care Team (Late st Contact Info) Description 08/07/2023 Telephone Cardiology, [facility] [address] [place] [address] Vic Amado, [address] [place] [address] Hospital Follow-Up Allergies No known active allergiesdocumented as of this encounter (statuses as of 08/13/2023) Medications Medication Sig Dispensed Refills Start Date [...] diastolic heart failure (HCC),Coronary artery disease involving [place] coronary artery of [place] heart without angina pectoris,Uncontrolled type 2 diabetes mellitus with hyperglycemia (HCC),RADHA (obstructive sleep apnea) Take 4 Tablets by mouth in the morning. 90 Tablet 3 03/23/2023 Active documented as of this encounter (statuses as of 08/13/2023) Active Problems Problem Noted Date Diagnosed Date Body mass index (BMI) of 40.0 to 44.9 in adult 1 06/27/2022 Overview: Per Obesity protocol Pulmonary HTN 01/17/2023 Coronary artery disease invo lving [place] and [place] tribes coronary artery of [place] heart without angina pectoris 01/17/2023 Chronic diastolic [...] as of this encounter (statuses as of 08/13/2023) Immunizations Name Administration Dates Next Due Pneumococcal Conjugate Vacci ne, 20-valent ([id number]) 03/23/2023 Pneumococcal Polysaccharide PPV23 (Pneumovax) 01/06/2008 Seasonal [...] encounter Miscellaneous Notes * Telephone Encounter - Payton Lucas OSA - 08/13/2023 9:00 AM EST Spoke with Holly at [facility]. Pt is being d/c on August 17. Vernon scheduled for August 18. * Telephone Encounter - Payton Lucas OSA - 08/11/2023 8:29 AM EST Spoke with Katlyn at [facility]. She will have someone from transportation return my call to schedule Pt to come in for the Zio. * Telephone Encounter - Vic Amado DO - 08/07/2023 2:59 PM EST Patient to be discharged from [facility] and transfered to [facility]. Had been seen by Dr Carranza and Jaciel Ewing PA-C during admission and 14 day Zio patch recommended for evaluation of source of stroke. Please help schedule Zio Patch and follow up after Zio Result anticipated to be back, any provider. Order entered. Vic Amado DO documented in this encounter Plan of Treatment Upcoming Encounters Date Type Department Care Team (Late st Contact Info) Description 08/19/2023 11:15 AM EST Cardiac Studies Cardiac Studies, [facility] [address] [facility] [place] [address] 08/25/2023 3:20 PM EDT Office Visit General Internal Medicine [facility] [place] [address] [facility] [place] [address] Bridgette Celis MD 200 [facility] [place] [address] 09/07/2023 11:20 AM EDT Office Visit Neurology [facility] [place] [address] [facility] [place] [address] Lizabeth Marquez PA-C 200 [facility] [place] [address] 11/16/2023 10:00 AM EDT Office Visit Nephrology, [facility] 200 [facility] [place] [address] Rene Mo MD 200 [facility] [place] [address] Scheduled Orders Name Type Priority Associated Diagnoses Orde r Schedule EXTERNAL EKG 8 TO 15 DAYS Holter Routine Cerebrovascular accident (CVA), unspecified mechanism (HCC) Expected: 08/08/2023 (Approximate), Expires: 08/07/2024 Health Maintenance Due Date Last Done Comments [...] Ratio 01/18/2024 01/17/2023 CKD PHOS USE SMARTSET 19480 01/18/2024 01/17/2023, 0 12/25/2019 GFR 02/11/2024 08/13/2023, 022 09/2023, 03/16/2023, Additional history exists Depression Screening 03/23/2024 03/23/2023 Diabetic Foot Exam 03/23/2024 03/23/2023 CKD HGB USE SMARTSET 52540 08/08/202408/08, 03/23/2023, 03/23/2023, Additional history exists DTaP,Tdap,and Td Vaccines [...] of this encounter Visit Diagnoses Diagnosis Cerebrovascular accident (CVA), unspecified mechanism (HCC)- Primary documented in this encounter
--- OUTSIDE RECORDS SUMMARY | 2023-11-18 13:42 | External Medical Summary | Summary of Care ---
Author Name Unknown Organization [facility] Address [address] [place] [address] Phone [phone] Care Team Providers Care Business Development Sales Executive Name Role Phone Veronique Webb MD Primary Care Provider [phone] Reason for Referral * Evaluate & Treat - Unlimited Visits (Within 30 days (routine)) - Authorized Specialty Diagnoses / Procedures Referred By Contac t Referred To Contact Podiatry Diagnoses Chronic ulcer of great toe of left foot, unspecified ulcer stage (HCC) Bridgette Celis MD [address] [place] [address] Referral ID Status Reason Start Date Expiration Date Visits Requested Visits Authorized [id number] Authorized Specialty Services Required 08/27/2023 999 999 [...] / Cardiology Diagnoses Coronary artery disease involving [place] coronary artery of [place] heart without angina pectoris Bridgette Celis MD [address] [place] [address] Referral ID Status Reason Start Date Expiration Date Visits Requested Visits Authorized [id number] Authorized Specialty Services Required 08/27/2023 999 999 Question Answer Referral Priority Within 30 days (routine) Where should this appointment be scheduled? [facility] To which of the following clinics are you referring your patient? General Cardiology Clinic Comments Recent CVA, possible embolic and had hypertensive emergency. Hx of CAD, [place] when was in [place], s/p stent placed. Thanks. * Evaluate & Treat - Unlimited Visits (Within 30 days (routine)) - Authorized Specialty Diagnoses / Procedures Referred By Contes crespo Referred To Contact Pulmonary Diseases / Pulmonary Diagnoses Pulmonary nodule 1 cm or greater in diameter Bridgette Celis MD [address] [place] [address] Referral ID Status Reason Start Date Expiration Date Visits Requested Visits Authorized [id number] Authorized Specialty Services Required 08/27/2023 999 999 [...] 7.0% (HCC) Bridgette Celis MD [address] [place] [address] Referral ID Status Reason Start Date Expiration Date Visits Requested Visits Authorized [id number] Authorized Specialty Services Required 08/27/2023 99 99 [...] have her medication therapy managed by the [facility] Medication Therapy Disease Management Clinic (MTD) per established policies, procedures, and protocols. I also certify that this referral may serve as an initiation of service for the management of drug therapy in the above noted patient. [facility] providers will be responsible for scheduling patient visits, obtaining appropriate laboratory studies, and adjusting medication management therapy per patient's need, in addition to those roles spelled out in the clinic policy, procedures, and drug management protocols. I understand that the service provided by the [facility] Clinic is voluntary and have informed patient that they can refuse the service at their discretion. I am aware that the [facility] Clinic will provide me with a copy of the patient encounter via my [employer]. I authorize the [facility] Clinic to carry out these activities on my behalf. I consider this program to be a necessary part of the patient's medical care. Bridgette Celis MD Reason for Visit * Reason Onset Date Comments Hospital Follow-Up Hospital Follow-Up 08/27/2023 Encounter Details Date Type Department Care Team (Latest Contact Info) Description 08/27/2023 2:20 PM EDT Office Visit General Internal Medicine [facility] [place] [address] [place] [address] Bridgette Celis MD 200 [facility] [place] [address] Cerebrovascular disease, arteriosclerotic, post-stroke*; Chronic diastolic heart failure ([facility]); Diabetic retinopathy of both eyes associated with type 2 diabetes mellitus, macular edema presence unspecified, unspecified retinopathy severity ([facility]); Stage 3a chronic kidney disease ([facility]); Body mass index (BMI) of 40.0 to 44.9 in adult ([facility]); Recurrent major depressive disorder, in full remission ([facility]); BERTA (generalized anxiety disorder); Coronary artery disease involving [place] coronary artery of [place] heart without angina pectoris; Pulmonary HTN ([facility]); RADHA (obstructive sleep apnea); Diabetic ulcer of left heel associated with type 2 diabetes mellitus, unspecified ulcer stage ([facility]); HTN, goal below 130/80; Type 2 diabetes [...] diastolic heart failure (HCC),Coronary artery disease involving [place] coronary artery of [place] heart without angina pectoris,Uncontrol led type 2 [...] HTN 01/17/2023 Coronary artery disease invo lving [place] coronary artery of [place] heart without angina pectoris 01/17/2023 Chronic diastolic heart failure 01/17/2023 Lymphedema 01/17/2023 HTN, goal below 140/90 01/17/2023 Type 2 diabetes mellitus wit h hemoglobin A1c goal of less than 7.5% 01/17/2023 Diabetic retinopathy associa rishi with type 2 diabetes mellitus 01/17/2023 Hidradenitis suppurativa 01/17/2023 RADHA (obstructive sleep apnea) 01/17/2023 Kidney disease, chronic, stage III (GFR 30-59 ml /min) 01/17/2023 EBRTA (generalized anxiety disorder) 01/17/2023 Recurrent major depressive disorder, in full rem ission 01/17/2023 documented as of this encounter (statuses as of 08/27/2023) Immunizations Name Administration Dates Next Due Pneumococcal Conjugate Vacci ne, 20-valent ([id number]) 03/23/2023 Pneumococcal Polysaccharide PPV23 (Pneumovax) 01/06/2008 Seasonal [...] diabetes mellitus, hypertension, hyperlipidemia, CAD, history of [place], status post stent, hypothyroidism, obstructive sleep apnea, nocturnal hypoxia, pulmonary hypertension, chronic diastolic heart failure, depression, anxiety, CKD stage 3-4, chronic neuropathy, history of CAD, mi, status post stent in 2019 in [place] as per the family, chronic vision changes [...] the chart, discussion with the patient and kohworwf-vk-poo patient was feelingweak and fell onto her [...] consulted for further evaluation. Carotid duplex showed xpxr-ic-fyvhxtkg atherosclerotic plaque, velocity measurements mildly compromised by suboptimal penetration. No evidence of hemodynamically significant stenosis though. CT angiogram Unremarkable for brain and neck Renal ultrasound showed no evidence of hydronephrosis or renal artery stenosis. TTE: EF 60 to 65%, moderate concentric LVH, grade 1 diastolic dysfunction, moderately dilated left atrium, cqgd-qt-lsiftxco mitral regurgitation, trace AR, no evidence of [...] needed. Pt has been followed up by test case developer and specialists. Patient Active Problem List Diagnosis Code Pulmonary HTN ([facility]) I27.20 Coronary artery disease involving [place] coronary artery of [place] heart without angina pectoris I25.10 Chronic diastolic heart failure ([facility]) I50.32 Lymphedema I89.0 HTN, goal below 140/90 I10 Type 2 diabetes mellitus with hemoglobin A1c goal of less than 7.5% ([facility]) E11.9 Diabetic retinopathy associated with type 2 diabetes mellitus ([facility]) E11.319 Hidradenitis suppurativa L73.2 RADHA (obstructive sleep apnea) G47.33 Kidney disease, chronic, stage III (GFR 30-59 ml/min) ([facility]) N18.30 BERTA (generalized anxiety disorder) F41.1 Recurrent major depressive disorder, in full remission ([facility]) F33.42 Body mass index (BMI) of 40.0 to 44.9 in adult ([facility]) Z68.41 Current Outpatient Medications Medication Sig Dispense [...] edema presence unspecified, unspecified retinopathy severity ([facility]) - PHARMACIST MEDS THERAPY MGMT REFERRAL OP Stage 3a chronic kidney disease (HCC) Body mass index (BMI) of 40.0 to 44.9 in adult (HCC) Recurrent major depressive disorder, in full remission (HCC) On lexapro. BERTA (generalized anxiety disorder) Coronary artery disease involving [place] coronary artery of [place] heart without angina pectoris Pulmonary HTN (HCC) [...] 09/04/2023 9:00 AM EDT Office Visit Nephrology, [facility] [address] [place] [address] [address] Andrew [place] MD [address] [place] [address] [place] [address] 09/07/2023 11:20 AM EDT Office Visit Neurology State Cristhian Brooks [address] [place] [address] [address] Lizabeth Marquez PA-C [address] [phone] Scheduled Orders Name Type Priority Associated Diagnoses [...] 30 days (routine) Coronary artery disease involving [place] coronary artery of [place] heart without angina pectoris Ordered: 08/27/2023 PODIATRY [...] Ratio 01/18/2024 01/17/2023 CKD PHOS USE SMARTSET 67398 01/18/2024 01/17/2023, 0 12/25/2019 GFR 02/15/2024 08/15/2023, 02/2 02/2024, 08/08/2023, Additional history exists Depression Screening 03/23/2024 03/23/2023 Diabetic Foot Exam 03/23/2024 03/23/2023 CKD HGB USE SMARTSET 21723 08/14/202408/14, 08/08/2023, 03/23/2023, Additional history exists DTaP,Tdap,and [...] Generalized anxiety disorder Coronary artery disease involving [place] coronary artery of [place] heart without angina pectoris Pulmonary HTN (HCC) [...] Agen t (per Health Care Power of It Business Systems Analyst document) Care Teams Business Development Sales Executive Relationship Specialty Start Date End Date Veronique Webb MD [address] [place] [address], [place] [address] PCP - General Internal Medicine 08/27/23 documented as of this encounter
--- OUTSIDE RECORDS SUMMARY | 2023-11-18 13:42 | External Medical Summary ---
Author Name Unknown Address Unknown Organization [id number]:[facility] [place] [address] [place] [address] Laboratory Report Ordering Provider Test Date Status TRES ATKINSON 08/15/2023 05:26:24 Final Observation Date Value Abnormality Reference (Units ) Status WBC, Total 08/15/2023 05:26:24 7.01 4.00-10.8 0 (K/uL) Final RBC 08/15/2023 05:26:24 3.46 3.85-5.15 (M/uL) Final Hemoglobin 08/15/2023 05:26:24 9.6 Below low normal 12 .0-15.3 (g/dL) Final HCT 08/15/2023 05:26:24 30.3 Below low normal 36. 0-45.2 (%) Final MCV 08/15/2023 05:26:24 87.6 81.5-97.5 (fL) Final MCH 08/15/2023 05:26:24 27.7 27.0-34.0 (pg) Final MCHC 08/15/2023 05:26:24 31.7 32.0-36.0 (g/dL) Final RDW 08/15/2023 05:26:24 13.7 11.5-15.5 (%) Final Platelets 08/15/2023 05:26:24 254 140-400 (K /uL) Final MPV 08/15/2023 05:26:24 9.7 6.6-11.1 ( fL) Final Performing Location [facility] [place] [address] [place] [address]
--- OUTSIDE RECORDS SUMMARY | 2023-11-18 13:42 | External Medical Summary ---
Author Name Unknown Address Unknown Organization K09:[facility] [address] [place] [address] Laboratory Report Ordering Provider Test Date Status TRES ATKINSON 08/13/2023 07:39:51 Final Observation Date Value Abnormality Reference (Units ) Status BUN 08/13/2023 07:39:51 61 Above high normal 6-20 (mg/dL) Final Creatinine 08/13/2023 07:39:51 1.3 Above high normal 0.5-1.0 (mg/dL) Final Glomerular filtration rate/1.73 sq M.predicted [Volume Rate/Area] in Serum, Plasma or Blood by Creatinine-based formula (CKD-EPI) 08/13/2023 07:39:51 47 Below low normal >=60 (mL/min) Final eGFR is calculated based on the CKD-EPI 2020 equation SODIUM 08/13/2023 07:39:51 141 135-146 (m mol/L) Final Potassium 08/13/2023 07:39:51 4.1 3.5-5.1 (m mol/L) Final Cl 08/13/2023 07:39:51 103 98-107 (mm ol/L) Final CO2 08/13/2023 07:39:51 28 22-32 (mmo l/L) Final Anion gap 08/13/2023 07:39:51 10 7-15 (mmol /L) Final Glucose 08/13/2023 07:39:51 47 Below low normal 70- 120 (mg/dL) Final Calcium 08/13/2023 07:39:51 9.3 8.4-10.2 ( mg/dL) Final Performing Location [facility] [place] [address]
--- OUTSIDE RECORDS SUMMARY | 2023-11-18 13:43 | External Medical Summary | Summary of Care ---
Author Name Unknown Organization [facility] [address] [facility] [address] Phone [phone] Care Team Providers Care Dental Treatment Coordinator Name Role Phone Unavailable Primary Care Provider Unavailabl e Reason for Visit * Reason Onset Date Comments Appointment 08/11/2023 Encounter Details Date Type Department Care Team (Late st Contact Info) Description 08/11/2023 Telephone [facility] [address] [place] [address] Kelin Gregory MD [address] [facility] [place] [address] Appointment Allergies No known active allergiesdocumented as of this encounter (statuses as of 08/11/2023) Medications Medication Sig Dispensed Refills Start Date [...] diastolic heart failure (HCC),Coronary artery disease involving [place] coronary artery of [place] heart without angina pectoris,Uncontrolled type 2 diabetes mellitus with hyperglycemia (HCC),RADHA (obstructive sleep apnea) Take 4 Tablets by mouth in the morning. 90 Tablet 3 03/23/2023 Active documented as of this encounter (statuses as of 08/11/2023) Active Problems Problem Noted Date Diagnosed Date Body mass index (BMI) of 40.0 to 44.9 in adult 1 06/27/2022 Overview: Per Obesity protocol Pulmonary HTN 01/17/2023 Coronary artery disease invo lving [place] coronary artery of [place] heart without angina pectoris 01/17/2023 Chronic [...] as of this encounter (statuses as of 08/11/2023) Immunizations Name Administration Dates Next Due Pneumococcal Conjugate Vacci ne, 20-valent ([id number]) 03/23/2023 Pneumococcal Polysaccharide PPV23 (Pneumovax) 01/06/2008 Seasonal [...] Telephone Encounter - Eugenia Billy OSA - 08/11/2023 12:54 PM EST 08/11/23 Called [facility] to schedule patient for hospital discharge [place] 2 [place] now. [facility] stated the project scheduler is out today so they are sending an email to have them call us back to make hospital discharge appointment. Patient also needs bmplabs done on Thursday and for 3 weeks straight. Also, bmp labs done 3 days prior to the hospital discharge appointment that is going to be made. documented in this encounter Plan of Treatment Upcoming Encounters Date Type Department Care Team (Late st Contact Info) Description 08/25/2023 3:20 PM EDT Office Visit General Internal Medicine [facility] [place] [address] [facility] [place] [address] Bridgette Celis MD [address] [facility] [place] [address] 09/07/2023 11:20 AM EDT Office Visit Neurology [facility] [place] [address] [facility] [place] [address] Lizabeth Marquez PA-C [address] [facility] [place] [address] 11/16/2023 10:00 AM EDT Office Visit Nephrology, [facility] [address] [facility] [place] [address] Rene Mo MD [address] [facility] [place] [address] Health Maintenance Due Date Last Done Comments [...] Ratio 01/18/2024 01/17/2023 CKD PHOS USE SMARTSET 07009 01/18/2024 01/17/2023, 0 12/25/2019 GFR 02/06/2024 08/08/2023, 1007/2022, 01/17/2023, Additional history exists Depression Screening 03/23/2024 03/23/2023 Diabetic Foot Exam 03/23/2024 03/23/2023 CKD HGB USE SMARTSET 15790 08/08/202408/08, 03/23/2023, 03/23/2023, Additional history exists DTaP,Tdap,and [...]
--- OUTSIDE RECORDS SUMMARY | 2023-11-18 13:43 | External Medical Summary ---
Author Name Unknown Address Unknown Organization [id number]:[facility] [place] [address] [place] [address] Laboratory Report Ordering Provider Test Date Status TRES ATKINSON 08/08/2023 05:56:00 Final Observation Date Value Abnormality Reference (Units ) Status WBC, Total 08/08/2023 05:56:00 9.34 4.00-10.8 0 (K/uL) Final RBC 08/08/2023 05:56:00 4.04 3.85-5.15 (M/uL) Final Hemoglobin 08/08/2023 05:56:00 11.1 Below low normal 12 .0-15.3 (g/dL) Final HCT 08/08/2023 05:56:00 34.3 Below low normal 36. 0-45.2 (%) Final MCV 08/08/2023 05:56:00 84.9 81.5-97.5 (fL) Final MCH 08/08/2023 05:56:00 27.5 27.0-34.0 (pg) Final MCHC 08/08/2023 05:56:00 32.4 32.0-36.0 (g/dL) Final RDW 08/08/2023 05:56:00 13.8 11.5-15.5 (%) Final Platelets 08/08/2023 05:56:00 352 140-400 (K /uL) Final MPV 08/08/2023 05:56:00 10.0 6.6-11.1 ( fL) Final Performing Location [facility] [place] [address] [place] [address]
--- OUTSIDE RECORDS SUMMARY | 2023-11-18 13:43 | External Medical Summary | Summary of Care ---
Author Name Unknown Organization [facility] Address [address] [facility] [place] [address] Phone [phone] Care Team Providers Care Rehabilitation Medicine Physician Name Role Phone Unavailable Primary Care Provider Unavailabl e Reason for Visit * Reason Onset Date Comments Hospital Follow-Up 08/07/2023 Encounter Details Date Type Department Care Team (Late st Contact Info) Description 08/07/2023 Telephone Cardiology, [facility] [address] [place] [address] Vic Amado, [address] [place] [address] Hospital Follow-Up Allergies No known active allergiesdocumented [...] diastolic heart failure (HCC),Coronary artery disease involving [place] coronary artery of [place] heart without angina pectoris,Uncontrolled type 2 diabetes [...] HTN 01/17/2023 Coronary artery disease invo lving [place] coronary artery of [place] heart without angina pectoris 01/17/2023 Chronic diastolic [...] Next Due Pneumococcal Conjugate Vacci ne, 20-valent ([id number]) 03/23/2023 Pneumococcal Polysaccharide PPV23 (Pneumovax) 01/06/2008 Seasonal [...] 8:29 AM EST Spoke with Katlyn at . She will have someone from transportation return my call to schedule Pt to come in for the Zio. * Telephone Encounter - Vic Amado DO - 08/07/2023 2:59 PM EST Patient to be discharged from [facility] and transfered to [facility]. Had been seen by Dr Carranza [...] EDT Office Visit General Internal Medicine [facility] [place] [address] [facility] [place] [address] Bridgette Celis MD [address] [facility] [address] [facility] [address] 09/07/2023 11:20 AM EDT Office Visit Neurology [facility] [address] [facility] [place] [address] Lizabeth Marquez PA-C [address] [facility] [place] [address] 11/16/2023 10:00 AM EDT Office Visit Nephrology, [facility] [address] [facility] [address] [place], [place] [address] Rene Mo MD [address] [facility] [place], [place] [address] Scheduled Orders Name Type Priority Associated Diagnoses [...] Ratio 01/18/2024 01/17/2023 CKD PHOS USE SMARTSET 29228 01/18/2024 01/17/2023, 0 12/25/2019 GFR 02/06/2024 08/08/2023, 100 07/2022, 01/17/2023, Additional history exists Depression Screening 03/23/2024 03/23/2023 Diabetic Foot Exam 03/23/2024 03/23/2023 CKD HGB USE SMARTSET 70378 08/08/202408/08, 03/23/2023, 03/23/2023, Additional history exists DTaP,Tdap,and [...]
--- OUTSIDE RECORDS SUMMARY | 2023-11-18 13:43 | External Medical Summary | Summary of Care ---
Author Name Unknown Organization [facility] Address [address] [place] [facility] [place] [place] [place] [address] Phone [phone] Care Team Providers Care Director Online Marketing Name Role Phone Unavailable Primary Care Provider Unavailabl e Reason for Visit * Reason Onset Date Comments Order Request 07/08/2023 Encounter Details Date Type Department Care Team (Late st Contact Info) Description 07/08/2023 Telephone General Internal Medicine [facility] [address] [facility] [place] [address] Bridgette Celis MD [address] [place] [address] Order Request Allergies No known active allergiesdocumented as of this encounter (statuses as of 08/04/2023) Medications Medication Sig Dispensed Refills Start Date [...] diastolic heart failure (HCC),Coronary artery disease involving [place] coronary artery of [place] heart without angina pectoris,Uncontrolled type 2 diabetes mellitus with hyperglycemia (HCC),RADHA (obstructive sleep apnea) Take 4 Tablets by mouth in the morning. 90 Tablet 3 03/23/2023 Active documented as of this encounter (statuses as of 08/04/2023) Active Problems Problem Noted Date Diagnosed Date Body mass index (BMI) of 40.0 to 44.9 in adult 1 06/27/2022 Overview: Per Obesity protocol Pulmonary HTN 01/17/2023 Coronary artery disease invo lving [place] coronary artery of [place] heart without angina pectoris 01/17/2023 Chronic diastolic [...] as of this encounter (statuses as of 08/04/2023) Immunizations Name Administration Dates Next Due Pneumococcal Conjugate Vacci ne, 20-valent ([id number]) 03/23/2023 Pneumococcal Polysaccharide PPV23 (Pneumovax) 01/06/2008 Seasonal [...] encounter Miscellaneous Notes * Telephone Encounter - Kiersten Segovia LPN - 08/04/2023 12:28 PM EST Can be discussed at upcoming appt for documentation purposes * Telephone Encounter - Dahiana Gamble LPN - 07/10/2023 4:22 PM EST Left message for patient's son to call back. What is the reason for home health? Which agency would they like to use? * Telephone Encounter - Ninoska Hartmann OSA - 07/08/2023 12:30 PM EST An order was requested for this patient. Name of Requesting Provider: Tomi (Pt Son) Order Requested: Home Health Nurse Diagnosis/Reason for Request: Assistance in home Call Back Number: [phone] If the caller is not a current patient, please advise the patient to call their current PCP to havethe order's prior to being seen in our office. The patient was informed that our providers would not order anything (medication, labs, etc.) prior to being seen. documented in this encounter Plan of Treatment Upcoming Encounters Date Type Department Care Team (Late st Contact Info) Description 08/25/2023 3:20 PM EDT Office Visit General Internal Medicine [facility] [place] [address] [facility] [place] [address] Bridgette Celis MD [address] [facility] [place] [address] 11/16/2023 10:00 AM EDT Office Visit Nephrology, [facility] [address] [place] [address] Rene Mo MD [address] [facility] [place] [address] Health Maintenance Due Date Last Done Comments [...] 01/17/2023, 07/0 10/2021, 09/24/2021, Additional history exists GFR 09/15/2023 03/16/2023, 08/0 10/2022, 10/25/2021, Additional history exists Albumin/Creatinine Ratio 01/18/2024 01/17/2023 CKD PHOS USE SMARTSET 81966 01/18/2024 01/17/2023, 0 12/25/2019 CKD HGB USE SMARTSET 63502 03/23/202403/23, 03/23/2023, 01/17/2023, Additional history exists Depression Screening 03/23/2024 03/23/2023 Diabetic Foot Exam 03/23/2024 03/23/2023 DTaP,Tdap,and Td Vaccines (3 - Td or [...]
--- OUTSIDE RECORDS SUMMARY | 2023-11-18 13:43 | External Medical Summary ---
Author Name Unknown Address Unknown Organization K0[facility] [address] [place] [address] Laboratory Report Ordering Provider Test Date Status TRES ATKINSON 08/08/2023 05:56:00 Final Observation Date Value Abnormality Reference (Units ) Status BUN 08/08/2023 05:56:00 61 Above high normal 6-20 (mg/dL) Final Creatinine 08/08/2023 05:56:00 1.6 Above high normal 0.5-1.0 (mg/dL) Final Glomerular filtration rate/1.73 sq M.predicted [Volume Rate/Area] in Serum, Plasma or Blood by Creatinine-based formula (CKD-EPI) 08/08/2023 05:56:00 36 Below low normal >=60 (mL/min) Final eGFR is calculated based on the CKD-EPI 2020 equation SODIUM 08/08/2023 05:56:00 140 135-146 (m mol/L) Final Potassium 08/08/2023 05:56:00 4.1 3.5-5.1 (m mol/L) Final Cl 08/08/2023 05:56:00 102 98-107 (mm ol/L) Final CO2 08/08/2023 05:56:00 25 22-32 (mmo l/L) Final Anion gap 08/08/2023 05:56:00 13 7-15 (mmol /L) Final Glucose 08/08/2023 05:56:00 53 Below low normal 70- 120 (mg/dL) Final Calcium 08/08/2023 05:56:00 9.4 8.4-10.2 ( mg/dL) Final Performing Location [facility]ATORY [facility] [place] [address] [place] [address]
--- OUTSIDE RECORDS SUMMARY | 2023-11-18 13:43 | External Medical Summary | Summary of Care ---
Author Name Unknown Organization [facility] Address [address] [facility] [place] [address] Phone [phone] Care Team Providers Care Abstract Manager Name Role Phone Unavailable Primary Care Provider Unavailabl e Encounter Details Date Type Department Care Team (Late st Contact Info) Description 08/12/2023 Orders Only PATIENT PORTAL DO NOT DELETE THIS DEPT USED BY [place] [address] Allergies No known active allergiesdocumented as of this encounter (statuses as of 08/12/2023) Medications Medication Sig Dispensed Refills Start Date [...] diastolic heart failure (HCC),Coronary artery disease involving [place] coronary artery of [place] heart without angina pectoris,Uncontrolled type 2 diabetes mellitus with hyperglycemia (HCC),RADHA (obstructive sleep apnea) Take 4 Tablets by mouth in the morning. 90 Tablet 3 03/23/2023 Active documented as of this encounter (statuses as of 08/12/2023) Active Problems Problem Noted Date Diagnosed Date Body mass index (BMI) of 40.0 to 44.9 in adult 1 06/27/2022 Overview: Per Obesity protocol Pulmonary HTN 01/17/2023 Coronary artery disease invo lving [place] coronary artery of [place] heart without angina pectoris 01/17/2023 Chronic diastolic [...] as of this encounter (statuses as of 08/12/2023) Immunizations Name Administration Dates Next Due Pneumococcal Conjugate Vacci ne, 20-valent ([id number]) 03/23/2023 Pneumococcal Polysaccharide PPV23 (Pneumovax) 01/06/2008 Seasonal [...] Visit General Internal [place] [address] [place] [address] Bridgette Celis MD [address] [place] [address] 09/07/2023 11:20 AM EDT Office Visit Neurology [place] [address] [place] [address] Lizabeth Marquez PA-C [address] [place] [address] [address] 11/16/2023 10:00 AM EDT Office Visit Nephrology, [facility] [address] [place] [address] Rene Mo MD [address] [place] [address] Health Maintenance Due Date Last Done Comments [...] Ratio 01/18/2024 01/17/2023 CKD PHOS USE SMARTSET 27881 01/18/2024 01/17/2023, 0 12/25/2019 GFR 02/06/2024 08/08/2023, 10/0 07/2022, 01/17/2023, Additional history exists Depression Screening 03/23/2024 03/23/2023 Diabetic Foot Exam 03/23/2024 03/23/2023 CKD HGB USE SMARTSET 12773 08/08/202408/08, 03/23/2023, 03/23/2023, Additional history exists DTaP,Tdap,and [...]
[2023-11-18] MEDS ORDERED: ACETAMINOPHEN 325 MG TAB PO PRN (14:11)
[2023-11-18] MEDS ORDERED: GLUCAGON FOR INJ 1 MG VIAL SQ PRN (14:11)
[2023-11-18] MEDS ORDERED: GLUCOSE 10 TAB/TUBE PO PRN (14:11)
[2023-11-18] MEDS ORDERED: GLUCOSE 40% GEL 15 GM TUBE PO PRN (14:11)
[2023-11-18] MEDS ORDERED: ONDANSETRON INJ 2 MG/ML 2 ML VIAL IV PRN (14:11)
[2023-11-18] MEDS ORDERED: POLYETHYLENE (MIRALAX) 17 GM PACK PO PRN (14:11)
[2023-11-18] MEDS ORDERED: CARBOHYDRATES FOR HYPOGLYCEMIA PO PRN (14:11)
[2023-11-18] MEDS ORDERED: DEXTROSE 50% 50 ML SYRINGE IV PRN (14:11)
--- NOTE | 2023-11-18 14:12 | Cardiology Consultation ---
Date of Consultation November 18, 2023 Assessment & Plan (1) Acute on chronic heart failure with preserved ejection fraction (HFpEF): (2) Hyperkalemia: (3) Obesity, morbid, BMI 40.0-49.9: Plan Creatinine 2.04, compared to 1.83 on 09/28/2023, and per previous nephrology notes, it was felt that her new baseline as of the September admission was likely going to be in the range of about 2 mg/dL. Will reassess potassium with having received diuretic therapy repeat chemistry panel ordered for tomorrow by the admitting team. Continue dose of furosemide at 60 mg IV twice daily. Continue antihypertensives including oral hydralazine, metoprolol, amlodipine. Continue prior to hospital treatment aspirin and rosuvastatin. No need to update echocardiogram at this time. History of Present Illness Attending Physician: Maxine Casillas MD History of Present Illness Maricel Flores is a 63 year old female seen in cardiology consultation per the request of Alea Reyes PA-C for the evaluation of acute heart failure. Patient presented to the emergency department this morning with progressive shortness of breath. Findings are suggestive of pulmonary edema and she has since been placed on BiPAP. Ventura catheter in place and she received 60 mg of IV furosemide thus far. Patient previously admitted in September, with hypoxic respiratory failure and possible superimposed pneumonia. Treated for heart failure with preserved ejection fraction at that time. Patient previously followed with cardiology in [place]. She was seen for the first time by our group during her hospital stay in July, when she was found to have small acute infarcts in both occipital lobes. She also been treated for a left diabetic foot ulcer was found to have uncontrolled diabetes with a hemoglobin A1c 14%. Past Medical and Surgical History Chronic diastolic heart failure ASCVD status post staged PCI to LAD 12/27/19 and RCA 01/24/20 Pulmonary hypertension Essential hypertension Mixed hyperlipidemia Type II diabetes mellitus, with history of diabetic foot ulcers, uncontrolled Chronic lower extremity lymphedema Stage III chronic kidney disease Hypothyroidism Morbid obesity Obstructive sleep apnea and nocturnal hypoxemia Anemia of chronic disease and iron deficiency Anxiety Depression Allergies Allergy/AdvReac Type Severity Reaction Status Date / Time No Known Allergies Allergy Verified 09/24/23 20:25 Home Medications Medication Instructions Recorded Confirmed Type amlodipine 10 mg tablet 10 mg PO DAILY 07/29/23 11/18/23 History escitalopram oxalate 20 mg tablet 20 mg PO DAILY 07/29/23 11/18/23 History hydralazine 100 mg tablet 100 mg PO TID 07/29/23 11/18/23 History metoprolol succinate 100 mg 100 mg PO QAM 07/29/23 11/18/23 History tablet,extended release 24 hr sildenafil (pulm.hypertension) 20 20 mg PO TID 07/29/23 11/18/23 History mg tablet rosuvastatin 20 mg tablet (Crestor) 20 mg PO QAM #0 tabs 08/07/23 11/18/23 Rx insulin glargine 100 unit/mL (3 25 unit subcut QAM 09/24/23 11/18/23 History mL) subcutaneous pen (Lantus Solostar U-100 Insulin) aspirin 325 mg tablet 325 mg PO DAILY 09/25/23 11/18/23 History torsemide 20 mg tablet 20 mg PO BID #90 tabs 09/28/23 11/18/23 Rx Patient History Surgical History History of cardiac cath s/p stents Social History Smoking Status: Never smoker Do You Dip or Chew Tobacco: No; Hx Alcohol Use: No Hx Substance Use: No Preferred Language: Brazilian Communication Ability: Effective Environmental Protection Geologist Required: No Beliefs That Will Affect Care: None Current Living Situation: Family Current Living Situation Comment: lives with son Feels Safe at Home: Yes Gender Identity: Female Assistive Devices: Bedside Commode and Walker Review of Systems Review of Systems: Comprehensive review of systems limited as patient is currently on BiPAP. Physical Exam Constitutional: + ill appearing Respiratory: Auscultation: + diminished lung sounds; no crackles and no rales Cardiovascular: Rate/Rhythm: regular rate and regular rhythm Extremities: + edema (Difficult to assess for edema given body habitus of legs, obesity) Gastrointestinal (Abdomen): normal bowel sounds, soft, nontender, no hepatosplenomegaly Neurologic: PERRL, EOMI, accommodation nl, no face palsy, no dysarthria Results & Data Vital Signs (Past 12 Hours) Vital Signs Temp Pulse Pulse Resp BP BP Pulse Ox 11/18/23 13:03 59 L 17 94 11/18/23 12:44 58 L 11/18/23 12:33 60 21 97 11/18/23 12:00 60 19 173/80 H 93 11/18/23 11:31 159/78 H 11/18/23 11:30 60 22 93 11/18/23 11:17 60 18 93 11/18/23 11:06 58 L 17 95 11/18/23 11:00 59 L 20 160/75 H 94 11/18/23 10:30 60 18 95 11/18/23 10:30 130/103 H 11/18/23 10:03 59 L 18 95 11/18/23 09:39 59 L 21 95 11/18/23 09:31 145/113 H 11/18/23 09:24 60 18 95 11/18/23 09:15 64 21 155/74 H 94 11/18/23 09:00 61 17 95 11/18/23 08:46 62 11/18/23 08:33 63 27 H 92 11/18/23 08:18 62 20 92 11/18/23 08:02 160/103 H 11/18/23 07:51 61 17 92 11/18/23 07:34 61 22 91 11/18/23 07:33 61 22 91 11/18/23 07:30 61 19 162/60 H 92 11/18/23 07:03 60 20 143/79 H 92 11/18/23 06:00 60 18 91 11/18/23 05:36 62 20 140/91 91 11/18/23 05:15 60 22 92 11/18/23 05:10 62 24 91 11/18/23 04:45 60 11/18/23 04:37 78 L 11/18/23 04:37 36.7 C 61 24 140/91 78 L O2 Del Method O2 Flow Rate FiO2 11/18/23 13:03 BiPAP 11/18/23 12:44 11/18/23 12:33 BiPAP 11/18/23 12:00 BiPAP 11/18/23 11:31 11/18/23 11:30 11/18/23 11:17 50 11/18/23 11:06 11/18/23 11:00 BiPAP 11/18/23 10:30 11/18/23 10:30 11/18/23 10:03 11/18/23 09:39 11/18/23 09:31 11/18/23 09:24 11/18/23 09:15 BiPAP 11/18/23 09:00 11/18/23 08:46 11/18/23 08:33 11/18/23 08:18 11/18/23 08:02 11/18/23 07:51 11/18/23 07:34 60 11/18/23 07:33 11/18/23 07:30 60 11/18/23 07:03 BiPAP 60 11/18/23 06:00 BiPAP 11/18/23 05:36 BiPAP 11/18/23 05:15 Non-rebreather 15 11/18/23 05:10 60 11/18/23 04:45 11/18/23 04:37 Room Air 0 11/18/23 04:37 Room Air Laboratory Results Cardiac Enzymes 11/18/23 Range/Units 05:35 AST 13 (13-39) U/L Troponin I High Sens 6.2 (0-14) pg/ml B-Natriuretic Peptide 242 H (0-100) pg/ml Coagulation 11/18/23 Range/Units 05:35 PT 10.9 (9.0-12.0) Seconds APTT 22 (21-31) Seconds B-Natriuretic Peptide 242 H (0-100) pg/ml CBC 11/18/23 Range/Units 05:35 WBC 12.22 H (4.8-10.8) K/ul RBC 4.19 L (4.20-5.40) M/uL Hgb 10.9 L (12.0-16.0) g/dl Hct 35.5 L (37.0-47.0) % Plt Count 253 (130-400) K/uL Neut # (Auto) 10.66 H (1.40-6.50) K/uL Lymph # (Auto) 0.65 L (1.20-3.40) K/uL Ward # (Auto) 0.65 H (0.11-0.59) K/uL Eos # (Auto) 0.15 (0.00-0.50) K/uL Baso # (Auto) 0.06 (0.00-0.20) K/uL Comprehensive Metabolic Panel 11/18/23 Range/Units 05:35 Sodium 139 (136-145) mmol/L Potassium 5.4 H (3.5-5.1) mmol/L Chloride 109 H (98-107) mmol/L Carbon Dioxide 23 (21-32) mmol/L BUN 89 H (6-23) mg/dl Creatinine 2.04 H (0.6-1.2) mg/dl Glucose 196 H (70-99(Fasting)) mg/dl Calcium 9.8 (8.6-10.3) mg/dl AST 13 (13-39) U/L ALT 20 (7-52) U/L Alkaline Phosphatase 130 H (34-104) U/L Total Protein 8.0 (6.0-8.3) gm/dl Albumin 3.7 (3.4-5.0) gm/dl Intake and Output 11/17/23 11/18/23 11/18/23 22:59 06:59 14:59 Intake Total 120 / 120 Output Total 500 / 500 Balance -380 / -380 Intake: IV 120 / 120 Piperacillin/Tazobactam 4.5 gm 120 / 120 In 120 ml @ 240 mls/hr IV NOW ONE Rx#:[id number] Output: Urine Amount (Catheter) 500 / 500 Ventura/Indwelling 500 / 500 Other: Weight 113.5 kg Weight Measurement Method Built in [facility] Diagnostic Findings EKG performed today 11/18/2023 interpreted independently sinus rhythm 60 bpm, incomplete left bundle branch block, nonspecific repolarization abnormalities, left ventricular hypertrophy suggestive of voltage criteria. Compared to the previous dated 09/24/2023, no significant change. Summary of echocardiogram performed 07/30/2023: Moderate concentric left ventricular perjury, LVEF in the range of 66 5%, grade 1 diastolic dysfunction, moderate left atrial lodgment, mild aortic valve sclerosis without stenosis, mild to moderate MR, intact interatrial septum, elevated right ventricular systolic pressure in the range of 40 to 50 mmHg Chest x-ray consistent with
[2023-11-18 14:55] LABS: Base Excess VBG -2.5 mEq/L; HCO3 VBG 24 mmol/L; Oxygen Saturation VBG 64.4 %; PCO2 VBG 48 mmHg (38-50); PO2 VBG 36 mmHg; pH VBG 7.31 (7.36-7.41)
[2023-11-18] MEDS: amLODIPine BESYLATE 5 MG TAB PO SCH (15:19)
[2023-11-18] MEDS: SILDENAFIL CITRATE 20 MG TABLET PO SCH (15:19)
[2023-11-18] MEDS: ASPIRIN 325 MG ECTAB PO SCH (15:20)
[2023-11-18] MEDS: ESCITALOPRAM OXALATE 20 MG TAB PO SCH (15:20)
[2023-11-18] MEDS: METOPROLOL SUCC 50MG EXT REL TAB PO SCH (15:20)
[2023-11-18] MEDS: ROSUVASTATIN CALCIUM 20 MG TAB PO SCH (15:21)
[2023-11-18] MEDS: HEPARIN SOD 5,000 UNIT/0.5 ML VIAL SQ SCH (15:21)
[2023-11-18] MEDS: hydrALAZINE TAB 50 MG TAB PO SCH (15:22)
[2023-11-18] MEDS: INSULIN ASPART PER UNIT CHARGE SC SCH (15:35)
[2023-11-18] MEDS ORDERED: PROMETHAZINE HCL 6.25 MG in SODIUM CHLORIDE 0.9% 50 ML IV PRN (20:14)
[2023-11-18] MEDS ORDERED: FUROSEMIDE 40 MG/4 ML VIAL IV SCH (21:00)
[2023-11-18 21:30] LABS: Calcium 10.1 mg/dl (8.6-10.3); Magnesium 2.7 mg/dl (1.7-2.4); Potassium 5.5 mmol/L (3.5-5.1)
[2023-11-18 21:36] LABS: BUN Creatinine Ratio 51.4 (10-20); Creatinine Clr Calc Pharmacy 36.8 ml/min; Est GFR (African American) 33.9 ml/min; Est GFR (Non-African American) 29.2 ml/min
[2023-11-18] MEDS: DEXTROSE 50% 50 ML SYRINGE IV ONE (22:22)
[2023-11-18] MEDS: INSULIN HUMAN REGULAR PER UNIT 10 UNITS in SYRINGE 9.9 ML IV STA (22:26)
[2023-11-18] MEDS: CALCIUM GLUCONATE 1,000 MG/60 ML BAG IV STA (22:27)
[2023-11-19] MEDS: FUROSEMIDE 40 MG/4 ML VIAL IV SCH (06:00)
[2023-11-19 06:12] LABS: Basophils # (auto) 0.05 K/uL (0.00-0.20); Basophils % (auto) 0.6 %; Eosinophils # (auto) 0.22 K/uL (0.00-0.50); Eosinophils % (auto) 2.8 %; Hematocrit (blood only) 30.8 % (37.0-47.0); Hemoglobin 9.6 g/dl (12.0-16.0); Immature Granulocytes # (auto) 0.04 K/uL (0.01-0.20); Immature Granulocytes % (auto) 0.5 %; Lymphocytes # (auto) 1.01 K/uL (1.20-3.40); Lymphocytes % (auto) 12.8 %; Mean Corpuscular Hgb Conc 31.2 g/dL (32.0-36.0); Mean Corpuscular Volume 83.5 fL (80.0-100.0); Mean Platelet Volume 9.2 fL (9.4-12.4); Monocytes # (auto) 0.62 K/uL (0.11-0.59); Monocytes % (auto) 7.9 %; Neutrophils # (auto) 5.93 K/uL (1.40-6.50); Neutrophils % (auto) 75.4 %; Platelet Count 218 K/uL (130-400); RDW Coefficient of Variation 14.6 % (11.5-14.5); RDW Standard Deviation 44.3 fL (36.4-46.3); Red Blood Count 3.69 M/uL (4.20-5.40); White Blood Count 7.87 K/ul (4.8-10.8)
[2023-11-19 06:31] LABS: Albumin Globulin Ratio 0.9 (0.9-2); Albumin Level 3.2 gm/dl (3.4-5.0); BUN Creatinine Ratio 56.9 (10-20); Bilirubin,Total 0.7 mg/dl (0.2-1.0); Calcium 9.7 mg/dl (8.6-10.3); Creatinine Clr Calc Pharmacy 41.2 ml/min; Est GFR (African American) 38.8 ml/min; Est GFR (Non-African American) 33.5 ml/min; Globulin 3.6 gm/dl (2.5-4.0); Magnesium 2.6 mg/dl (1.7-2.4); Potassium 5.2 mmol/L (3.5-5.1); Total Protein 6.8 gm/dl (6.0-8.3)
[2023-11-19 07:25] LABS: Thyroid Stimulating Hormone 2.242 uIu/ml (0.300-4.500)
[2023-11-19] MEDS: LANTUS PER UNIT CHARGE SQ SCH (07:39)
--- NOTE | 2023-11-19 09:08 | Hospitalist Progress Note ---
Date of Service November 19, 2023 Assessment & Plan (1) Acute hypoxemic respiratory failure: (2) Acute on chronic heart failure with preserved ejection fraction (HFpEF): (3) CKD (chronic kidney disease), stage III: (4) Obesity, morbid, BMI 40.0-49.9: (5) Diabetes mellitus, type II: (6) Hyperkalemia: Plan This is a 63-year-old female who has a significant past medical history of insulin-dependent T2DM, RADHA on nocturnal oxygen, pulmonary hypertension, morbid obesity, chronic diastolic heart failure, history of CVA, HTN, HLD, CKD and depression with anxiety who presents to ED secondary to shortness of breath x 4 days. Echocardiogram on 07/30/2023 revealed EF 60 to 65%, grade 1 diastolic dysfunction, left atrium moderately dilated, mild to moderate MR and elevated RVSP at 40 to 50 mmHg --Chest x-ray revealed cardiomegaly with prominence of pulmonary vasculature. Layering pleural effusions with dependent consolidation. Acute hypoxemic respiratory failure Acute on chronic heart failure with preserved ejection fraction Admit to PCU Off BiPAP therapy at this point, on 15 L via NC, new O2 requirement, will repeat CXR ABG from 11/17 reviewed showing pH 7.31 Lasix 60 mg IV twice daily, patient reports being out of home torsemide for 2 days due to pharmacy being out and couldn't get the med - continue diuresis Ventura catheter in place Daily weight, strict intake and output -- net negative > 3300mL total today Consult cardiology - appreciate recs Minimal suspicion for infectious etiology as procalcitonin negative, no reported fever, she does have a slight elevated WBC but suspect this is related to volume overload Hx Lung nodules Subcarinal Lymphadenopathy - CT from 11/18 reviewed personally - next appt with pulmonology on 11/23/23 as outpt IMPRESSION 1. Enlarged subcarinal lymph node with mildly hypermetabolic activity, which is nonspecific, possibly reactive. Comparison to the images from outside prior exams may be helpful. 2. Patchy consolidations and atelectasis in both lungs are improved in some regions and worsened in others. No worrisome focally increased uptake. 3. Moderate right and small left pleural effusions with activation of the accessory muscles of respiration. 4. Enlarged ovaries without increased uptake. Recommend pelvic ultrasound for further evaluation and/or comparison to outside prior exams. CKD stage III, baseline creatinine 1.5-2 Hyperkalemia Low threshold for nephro involvement, K 5.2 today, stable Cr is improved at 1.6 with diuresis Previously on Lokelma, this was DC'd Also previously on lisinopril and Aldactone, but this has been on hold since last admission due to renal function Avoid nephrotoxic agents, monitor renal function closely with diuresis Insulin-dependent T2DM Last A1c 8.6 on 09/25/2023 Lantus/NovoLog per protocol During previous admission metformin and Jardiance discontinued due to renal function CAD hx of Stent Hypertension HLD - on crestor Patient with elevated BPs in ED, likely in setting of overload as well as she did not take her morning medication Continue amlodipine, hydralazine and metoprolol History of CVA MRI brain in July revealed small acute infarcts in bilateral occipital lobe concerning for embolic infarcts On ASA 325 daily Given significant fall risk and vision issues no anticoagulation recommended unless clear arrhythmias confirmed Pulmonary hypertension Continue sildenafil Depression with anx continue lexapro RADHA, untreated, cpap noncompliant Abnormal Chest CT on previous admission pt following [facility] pulmonology and underwent PET CT on 11/16 to eval adenopathy Morbid Obesity, BMI 47 encourage diet and lifestyle modifications DVT ppx : SQ Heparin DNR/DNI PCP: Bridgette Celis Lines: PIV x 1 FEN/GI: HH diet A total of 50 minutes were spent with greater than 50% of that time face to face with the patient, personally reviewing all current laboratories, imaging studies, past medication reconciliation, outpatient chart review, and discussion with specialists to collaborate care for the patient with attending. Please see attending documentation for corrections and/or additions. Admission and Anticipated Discharge Date Admission Date: November 18, 2023 Supervising Physician Co-Signing Physician Notes Patient seen and examined Reports feeling better. Denied fever, chills Still has significant oxygen requirement. Was on 2L NC at home. Currently on HF Repeat CXR reviewed. Still has pul edema and pl effusion Continue IV lasix Cards recs noted Monitor renal function. May consider Nephro if mild hyperkalemia 5.2 persists to aid with management of diuretics in the setting of CKD3 and volume overload Patient reviewed with Advanced Practitioner Agree with Advanced Practitioner's evaluation, findings and plans and take full responsibility Subjective Patient is seen and examined this morning, he is doing well overall, reports that her breathing has improved since yesterday. She denies wearing oxygen at home, currently is off of BiPAP which wore overnight and is on 15 L via nasal cannula during my visit. She denies cough, feels there is some improvement in her swelling of her legs although she cannot see it well enough to determine if it looks different. She moved her bowels yesterday. Patient has Ventura catheter in due to aggressive diuresis denies any abdominal discomfort or urinary complaints. She is asking about PET scan from outpatient results done on Thursday this week. Physical Exam Physical Exam: General: awake, alert, no apparent distress, obese white female Head: Normocephalic, atraumatic ENT: PERRL, EOMI, Pt cannot see me, no pharyngeal exudate, mucous membranes moist Chest: Absent breath sounds in RLL, on 15 L O2 via NC, faint crackles in LLL and RML. Cardiac: Regular rate and rhythm, faint systolic murmur, no JVD, normal peripheral pulses, good capillary refill Abdominal: NABS x 4 quadrants, soft, nondistended, nontender to palpation, no rebound or guarding Extremities: Obese, no peripheral edema or erythema, calfs nontender to palpation, + hard nodular lesions felt under her calfs, nonvisible skin involvem ent Psych: Normal mood and affect Neuro: AAO x 3, strength intact bilaterally and rated 5/5, no motor deficits, speech is clear, no peripheral sensory deficits Results & Data Results & Data Vital Signs (Past 12 Hours) Vital Signs Temp Pulse Pulse Resp BP Pulse Ox O2 Del Method 11/19/23 07:46 56 L 11/19/23 07:41 57 L 16 91 11/19/23 07:30 36.8 C 78 21 141/99 H 94 BiPAP 11/19/23 06:45 55 L 91 BiPAP 11/19/23 06:01 89 L BiPAP 11/19/23 05:50 86 L Oxymask 11/19/23 02:31 36.8 C 55 L 22 157/64 H 92 BiPAP 11/18/23 23:16 53 L 11/18/23 23:02 54 L 21 95 11/18/23 22:32 36.8 C 52 L 22 145/70 H 95 BiPAP O2 Flow Rate FiO2 11/19/23 07:46 11/19/23 07:41 60 11/19/23 07:30 11/19/23 06:45 11/19/23 06:01 11/19/23 05:50 15 11/19/23 02:31 11/18/23 23:16 11/18/23 23:02 70 11/18/23 22:32 Laboratory Results 11/18/23 05:35 Aerobic Blood Culture - Preliminary Blood No growth in Aerobic bottle after 24 hours. Anaerobic Blood Culture - Final 11/18/23 05:35 Aerobic Blood Culture - Preliminary Blood No growth in Aerobic bottle after 24 hours. Anaerobic Blood Culture - Preliminary No growth in Anaerobic bottle after 24 hours. 11/19/23 11/19/23 11/19/23 11:32 07:30 05:39 WBC 7.87 RBC 3.69 L Hgb 9.6 L Hct 30.8 L MCV 83.5 MCH 26.0 MCHC 31.2 L RDW Std Deviation 44.3 RDW Coeff of Sven 14.6 H Plt Count 218 MPV 9.2 L Immature Gran % (Auto) 0.5 Neut % (Auto) 75.4 Lymph % (Auto) 12.8 Dare % (Auto) 7.9 Eos % (Auto) 2.8 Baso % (Auto) 0.6 Neut # (Auto) 5.93 Lymph # (Auto) 1.01 L Dare # (Auto) 0.62 H Eos # (Auto) 0.22 Baso # (Auto) 0.05 Immature Gran # (Auto) 0.04 VBG pH VBG pCO2 VBG pO2 VBG HCO3 VBG O2 Saturation VBG Base Excess Sodium 142 Potassium 5.2 H Chloride 112 H Carbon Dioxide 25 Anion Gap 5 BUN 91 H Creatinine 1.60 H Est Cr Clr Drug Dosing 41.2 Est GFR ( Amer) 38.8 Est GFR (Non-Af Amer) 33.5 BUN/Creatinine Ratio 56.9 H Glucose 95 POC Glucose 167 H 112 H Calcium 9.7 Magnesium 2.6 H Total Bilirubin 0.7 AST 9 L ALT 15 Alkaline Phosphatase 102 Total Protein 6.8 Albumin 3.2 L Globulin 3.6 Albumin/Globulin Ratio 0.9 TSH 11/19/23 11/18/23 11/18/23 00:40 22:38 20:43 WBC RBC Hgb Hct MCV MCH MCHC RDW Std Deviation RDW Coeff of Sven Plt Count MPV Immature Gran % (Auto) Neut % (Auto) Lymph % (Auto) Dare % (Auto) Eos % (Auto) Baso % (Auto) Neut # (Auto) Lymph # (Auto) Dare # (Auto) Eos # (Auto) Baso # (Auto) Immature Gran # (Auto) VBG pH VBG pCO2 VBG pO2 VBG HCO3 VBG O2 Saturation VBG Base Excess Sodium 141 Potassium 5.2 H 5.5 H Chloride 111 H Carbon Dioxide 22 Anion Gap 8 BUN 92 H Creatinine 1.79 H Est Cr Clr Drug Dosing 36.8 Est GFR ( Amer) 33.9 Est GFR (Non-Af Amer) 29.2 BUN/Creatinine Ratio 51.4 H Glucose 146 H POC Glucose 229 H Calcium 10.1 Magnesium 2.7 H Total Bilirubin AST ALT Alkaline Phosphatase Total Protein Albumin Globulin Albumin/Globulin Ratio TSH 2.242 11/18/23 11/18/23 11/18/23 20:08 15:30 14:38 WBC RBC Hgb Hct MCV MCH MCHC RDW Std Deviation RDW Coeff of Sven Plt Count MPV Immature Gran % (Auto) Neut % (Auto) Lymph % (Auto) Dare % (Auto) Eos % (Auto) Baso % (Auto) Neut # (Auto) Lymph # (Auto) Dare # (Auto) Eos # (Auto) Baso # (Auto) Immature Gran # (Auto) VBG pH 7.31 L VBG pCO2 48 VBG pO2 36 VBG HCO3 24 VBG O2 Saturation 64.4 VBG Base Excess -2.5 Sodium Potassium Chloride Carbon Dioxide Anion Gap BUN Creatinine Est Cr Clr Drug Dosing Est GFR ( Amer) Est GFR (Non-Af Amer) BUN/Creatinine Ratio Glucose POC Glucose 156 H 189 H Calcium Magnesium Total Bilirubin AST ALT Alkaline Phosphatase Total Protein Albumin Globulin Albumin/Globulin Ratio TSH
--- NOTE | 2023-11-19 11:05 | Cardiology Progress Note ---
Date of Service November 19, 2023 Assessment & Plan (1) Acute on chronic heart failure with preserved ejection fraction (HFpEF): (2) Hyperkalemia: (3) Obesity, morbid, BMI 40.0-49.9: Plan Creatinine has trended toward improvement down to 1.6 today, baseline likely in the 1.5-2 range. Potassium still mildly elevated at 5.2 mmol/L, but improved compared to 5.4 yesterday. Blood pressure improved. Continue dose of furosemide at 60 mg IV twice daily. Continue antihypertensives including oral hydralazine, metoprolol, amlodipine. Avoid JAMIE inhibitor, ARB and ARNi due to renal insufficiency and hyperkalemia. Continue prior to hospital treatment aspirin and rosuvastatin. No need to update echocardiogram at this time. Admission and Anticipated Discharge Date Admission Date: November 18, 2023 Subjective Patient seen in cardiology follow-up. Off of BiPAP. Much more comfortable. Vigorous urine output noted. Ventura catheter remains in place draining clear yellow urine. Patient notes feeling much more comfortable than yesterday. Telemetry reveals sinus rhythm with rate for the most part in the 60s. Physical Exam Constitutional: + ill appearing Respiratory: Auscultation: + diminished lung sounds; no crackles and no rales Cardiovascular: Rate/Rhythm: regular rate and regular rhythm Extremities: + edema (Difficult to assess for edema given body habitus of legs, obesity) Gastrointestinal (Abdomen): normal bowel sounds, soft, nontender, no hepatosplenomegaly Neurologic: PERRL, EOMI, accommodation nl, no face palsy, no dysarthria Results & Data Vital Signs (Past 12 Hours) Vital Signs Temp Pulse Pulse Resp BP Pulse Ox O2 Del Method 11/19/23 09:37 High Flow Nasal Cannula 11/19/23 07:46 56 L 11/19/23 07:41 57 L 16 91 11/19/23 07:30 36.8 C 78 21 141/99 H 94 BiPAP 11/19/23 06:45 55 L 91 BiPAP 11/19/23 06:01 89 L BiPAP 11/19/23 05:50 86 L Oxymask 11/19/23 02:31 36.8 C 55 L 22 157/64 H 92 BiPAP 11/18/23 23:16 53 L 11/18/23 23:02 54 L 21 95 O2 Flow Rate FiO2 11/19/23 09:37 15 11/19/23 07:46 11/19/23 07:41 60 11/19/23 07:30 11/19/23 06:45 11/19/23 06:01 11/19/23 05:50 15 11/19/23 02:31 11/18/23 23:16 11/18/23 23:02 70
--- NOTE | 2023-11-19 14:44 | XRay Report ---
XR chest 1V portable HISTORY: 63 years-old Female New O2 requirement acute hypoxia COMPARISON: 11/18/2023 TECHNIQUE: AP view of the chest FINDINGS: Cardiac silhouette is enlarged. Pulmonary vascular congestion with interstitial coarsening. No pneumo thorax. Layering pleural effusions with bibasilar consolidation, similar to prior. Bones appear intac t. IMPRESSION: 1. Cardiomegaly with persistent pulmonary edema. 2. Unchanged layering pleural effusions with bibasilar consolidation suggestive of atelectasis versus pneumonia. ACT 112: Negative or not required by law. The above report was generated using voice recognition software. It may contain grammatical, syntax o r spelling errors. Electronically signed by: Steve Medley M.D. 11/19/2023 2:43 PM
[2023-11-20 09:36] LABS: Hematocrit (blood only) 30.9 % (37.0-47.0); Hemoglobin 9.8 g/dl (12.0-16.0); Mean Corpuscular Hgb Conc 31.7 g/dL (32.0-36.0); Mean Platelet Volume 9.3 fL (9.4-12.4); Platelet Count 228 K/uL (130-400); RDW Coefficient of Variation 14.4 % (11.5-14.5); RDW Standard Deviation 43.1 fL (36.4-46.3); Red Blood Count 3.77 M/uL (4.20-5.40)
[2023-11-20 09:46] LABS: BUN Creatinine Ratio 56.9 (10-20); Est GFR (African American) 38.8 ml/min; Est GFR (Non-African American) 33.5 ml/min
--- NOTE | 2023-11-20 10:17 | Cardiology Progress Note ---
Date of Service November 20, 2023 Assessment & Plan (1) Acute on chronic heart failure with preserved ejection fraction (HFpEF): (2) Hyperkalemia: (3) Obesity, morbid, BMI 40.0-49.9: Plan Continue IV furosemide 60 mg twice daily Monitor I/O's, daily weight, daily metabolic panels. Continue antihypertensives including metoprolol, amlodipine, and hydralazine No JAMIE, ARB, ARNi, or mineralocorticoid receptor antagonists due to renal insufficiency and hyperkalemia. Continue aspirin and rosuvastatin. No nitrates given present use of sildenafil Recommend revaluation and treatment for sleep apnea. Admission and Anticipated Discharge Date Admission Date: November 18, 2023 Supervising Physician Co-Signing Physician Notes I have personally performed a history and physical examination on the patient. I have reviewed the advance practitioner's documentation, and I agree with, and take responsibility for the plan of care. 63-year-old female with acute on chronic heart failure with preserved ejection fraction, renal insufficiency, and hyperkalemia. Potassium trending down to normal range today. Chest x-ray with evidence of layering, bilateral pleural effusions, right greater than left. Continue IV furosemide 60 mg twice daily. Monitor fluid balance, daily weight, GFR, and electrolytes. Consider pulmonary consultation for further evaluation of pleural effusions. Subjective Patient seen and examined. Chart, medications, and telemetry reviewed. Patient describes feeling better today, less dyspneic. No chest pain. No palpitations. SpO2 94% on 15 L via high flow nasal cannula I's/O's -2745, -3160 (-5905 mL overall) Creatinine stable at 1.60. Potassium down to 5.0 Telemetry: Sinus rhythm with heart rates in the 50s and 60s Review of Systems Review of Systems: Complete review of systems is otherwise as stated above, negative, or noncontributory. Physical Exam Physical Exam: General: A&Ox3. NAD. HENT: Normocephalic. Atraumatic. Eyes: PER. Conjunctiva pink, sclera clear. Neck: Unable to appreciate neck veins Heart: RRR, 60 bpm. Lungs: Diminished. No wheeze. Abdomen: +BS. Soft. Nontender. No masses or organomegaly. Extremities: Lymphedematous changes with nonpitting diffuse edema. No clubbing. No cyanosis Limited neurological examination is without focal deficits. Results & Data Vital Signs (Past 12 Hours) Vital Signs Temp Pulse Pulse Resp BP Pulse Ox O2 Del Method 11/20/23 08:16 36.5 C 60 20 141/63 H High Flow Nasal Cannula 11/20/23 07:35 65 11/20/23 04:20 High Flow Nasal Cannula 11/20/23 03:07 59 L 22 94 11/20/23 02:44 36.6 C 59 L 19 155/70 H 92 BiPAP 11/19/23 23:32 36.7 C 57 L 18 147/85 H 94 BiPAP 11/19/23 22:54 59 L 11/19/23 22:35 21 92 O2 Flow Rate FiO2 11/20/23 08:16 11/20/23 07:35 11/20/23 04:20 14 11/20/23 03:07 60 11/20/23 02:44 11/19/23 23:32 11/19/23 22:54 11/19/23 22:35 60 Laboratory Results CBC 11/20/23 Range/Units 08:49 WBC 7.50 (4.8-10.8) K/ul RBC 3.77 L (4.20-5.40) M/uL Hgb 9.8 L (12.0-16.0) g/dl Hct 30.9 L (37.0-47.0) % Plt Count 228 (130-400) K/uL Comprehensive Metabolic Panel 11/20/23 Range/Units 08:49 Sodium 139 (136-145) mmol/L Potassium 5.0 (3.5-5.1) mmol/L Chloride 108 H (98-107) mmol/L Carbon Dioxide 24 (21-32) mmol/L BUN 91 H (6-23) mg/dl Creatinine 1.60 H (0.6-1.2) mg/dl Glucose 193 H (70-99(Fasting)) mg/dl Calcium 10.0 (8.6-10.3) mg/dl Intake and Output 11/19/23 11/20/23 11/20/23 22:59 06:59 14:59 Intake Total 300 / 640 100 / 640 Output Total 850 / 3800 1350 / 3800 Balance -550 / -3160 -1250 / -3160 Intake: Oral 300 / 640 100 / 640 Output: Urine Amount (Catheter) 850 / 3800 1350 / 3800 [place]/Indwelling 850 / 3800 1350 / 3800 Other: Weight 113.4 kg Weight Measurement Method Built in [facility]
--- NOTE | 2023-11-20 11:21 | Hospitalist Progress Note ---
Date of Service November 20, 2023 Assessment & Plan (1) Acute hypoxemic respiratory failure: (2) Acute on chronic heart failure with preserved ejection fraction (HFpEF): (3) CKD (chronic kidney disease), stage III: (4) Obesity, morbid, BMI 40.0-49.9: (5) Diabetes mellitus, type II: (6) Hyperkalemia: Plan This is a 63-year-old female who has a significant past medical history of insulin-dependent T2DM, RADHA on nocturnal oxygen, pulmonary hypertension, morbid obesity, chronic diastolic heart failure, history of CVA, HTN, HLD, CKD and depression with anxiety who presents to ED secondary to shortness of breath x 4 days. Echocardiogram on 07/30/2023 revealed EF 60 to 65%, grade 1 diastolic dysfunction, left atrium moderately dilated, mild to moderate MR and elevated RVSP at 40 to 50 mmHg --Chest x-ray revealed cardiomegaly with prominence of pulmonary vasculature. Layering pleural effusions with dependent consolidation. Acute hypoxemic respiratory failure Acute on chronic heart failure with preserved ejection fraction Off BiPAP therapy at this point, on 15 L via NC, new O2 requirement, will repeat CXR-- will consult pulm to see if any further intervention ABG from 11/17 reviewed showing pH 7.31 Lasix 60 mg IV BID (day 3) patient reports being out of home torsemide for 2 days due to pharmacy being out and couldn't get the med Ventura catheter in place Daily weight, strict intake and output -- net negative > 3100mL total today Consult cardiology - appreciate recs Minimal suspicion for infectious etiology as procalcitonin negative, no reported fever, she does have a slight elevated WBC but suspect this is related to volume overload Hx Lung nodules Subcarinal Lymphadenopathy - Pulm consulted today as she remains on 15L via HF, wore bipap overnight for short time, off per pt request at 4am. - PET scan from 11/16 reviewed personally - next appt with pulmonology on 11/23/23 as outpt IMPRESSION 1. Enlarged subcarinal lymph node with mildly hypermetabolic activity, which is nonspecific, possibly reactive. Comparison to the images from outside prior exams may be helpful. 2. Patchy consolidations and atelectasis in both lungs are improved in some regions and worsened in others. No worrisome focally increased uptake. 3. Moderate right and small left pleural effusions with activation of the accessory muscles of respiration. 4. Enlarged ovaries without increased uptake. Recommend pelvic ultrasound for further evaluation and/or comparison to outside prior exams. CKD stage III, baseline creatinine 1.5-2 Hyperkalemia Low threshold for nephro involvement, K 5.0 today, stable Cr 1.6 with diuresis - remains stable Previously on Lokelma, this was DC'd Also previously on lisinopril and Aldactone, but this has been on hold since last admission due to renal function Avoid nephrotoxic agents, monitor renal function closely with diuresis Insulin-dependent T2DM Last A1c 8.6 on 09/25/2023 Lantus/NovoLog per protocol During previous admission metformin and Jardiance discontinued due to renal function CAD hx of Stent Hypertension HLD - on crestor Patient with elevated BPs in ED, likely in setting of overload as well as she did not take her morning medication Continue amlodipine, hydralazine and metoprolol History of CVA MRI brain in July revealed small acute infarcts in bilateral occipital lobe concerning for embolic infarcts On ASA 325 daily Given significant fall risk and vision issues no anticoagulation recommended unless clear arrhythmias confirmed RADHA, untreated, cpap noncompliant Pulmonary hypertension Continue sildenafil Possible that RADHA is contributing, pt reports having been told many years ago had it but noncompliant with mask Depression with anxiety continue lexapro Morbid Obesity, BMI 47 encourage diet and lifestyle modifications DVT ppx : SQ Heparin DNR/DNI PCP: Bridgette Celis Lines: PIV x 1 FEN/GI: HH diet A total of 50 minutes were spent with greater than 50% of that time face to face with the patient, personally reviewing all current laboratories, imaging studies, past medication reconciliation, outpatient chart review, and discussion with specialists to collaborate care for the patient with attending. Please see attending documentation for corrections and/or additions. Admission and Anticipated Discharge Date Admission Date: November 18, 2023 Supervising Physician Co-Signing Physician Notes Patient seen and examined Reports shortness of breath is improved Still requiring HFNC Continue IV lasix Appreciate pulm input with respect to pleural effusions/increased oxygen requirement Discussed with Supercharger Mechanic Patient reviewed with Advanced Practitioner Agree with Advanced Practitioner's evaluation, findings and plans and take full responsibility Subjective Pt seen and examined - reports breathing feels better today. She is on HF NC 15 L, reports trialed bipap overnight but couldnt tolerated it. Asked nursing to take it off at 2am, and they had her wear it until 4am. Admits to previous dx of RADHA and told should wear CPAP but never tolerated it. Denies other acute complaints. Physical Exam Physical Exam: General: awake, alert, no apparent distress, obese white female Head: Normocephalic, atraumatic ENT: PERRL, EOMI, Pt cannot see me, no pharyngeal exudate, mucous membranes moist Chest: Absent breath sounds in RLL, on 15 L O2 via NC, faint crackles in LLL and RML. Cardiac: Regular rate and rhythm, faint systolic murmur, no JVD, normal peripheral pulses, good capillary refill Abdominal: NABS x 4 quadrants, soft, nondistended, nontender to palpation, no rebound or guarding Extremities: Obese, lymphedema-like extremities, edema is difficult to assess, calfs nontender to palpation, + hard nodular lesions felt under her calfs, nonvisible skin involvement Psych: Normal mood and affect Neuro: AAO x 3, strength intact bilaterally and rated 5/5, no motor deficits, speech is clear, no peripheral sensory deficits Results & Data Results & Data Vital Signs (Past 12 Hours) Vital Signs Temp Pulse Pulse Resp BP Pulse Ox O2 Del Method 11/20/23 08:16 36.5 C 60 20 141/63 H High Flow Nasal Cannula 11/20/23 07:35 65 11/20/23 04:20 High Flow Nasal Cannula 11/20/23 03:07 59 L 22 94 11/20/23 02:44 36.6 C 59 L 19 155/70 H 92 BiPAP 11/19/23 23:32 36.7 C 57 L 18 147/85 H 94 BiPAP O2 Flow Rate FiO2 11/20/23 08:16 11/20/23 07:35 11/20/23 04:20 14 11/20/23 03:07 60 11/20/23 02:44 11/19/23 23:32 Laboratory Results 11/18/23 05:35 Aerobic Blood Culture - Preliminary Blood No growth in Aerobic bottle after 48 hours. Anaerobic Blood Culture - Final 11/18/23 05:35 Aerobic Blood Culture - Preliminary Blood No growth in Aerobic bottle after 48 hours. Anaerobic Blood Culture - Preliminary No growth in Anaerobic bottle after 48 hours. 11/20/23 11/20/2311/18/24 08:49 07:35 20:03 WBC 7.50 RBC 3.77 L Hgb 9.8 L Hct 30.9 L MCV 82.0 MCH 26.0 MCHC 31.7 L RDW Std Deviation 43.1 RDW Coeff of Sven 14.4 Plt Count 228 MPV 9.3 L Sodium 139 Potassium 5.0 Chloride 108 H Carbon Dioxide 24 Anion Gap 7 BUN 91 H Creatinine 1.60 H Est Cr Clr Drug Dosing 41.0 Est GFR ( Amer) 38.8 Est GFR (Non-Af Amer) 33.5 BUN/Creatinine Ratio 56.9 H Glucose 193 H POC Glucose 152 H 151 H Calcium 10.0 11/19/23 11/19/23 16:16 11:32 WBC RBC Hgb Hct MCV MCH MCHC RDW Std Deviation RDW Coeff of Sven Plt Count MPV Sodium Potassium Chloride Carbon Dioxide Anion Gap BUN Creatinine Est Cr Clr Drug Dosing Est GFR ( Amer) Est GFR (Non-Af Amer) BUN/Creatinine Ratio Glucose POC Glucose 203 H 167 H Calcium
--- NOTE | 2023-11-20 11:32 | Pulmonary Consultation ---
Date of Consultation November 20, 2023 Assessment & Plan (1) Acute on chronic heart failure with preserved ejection fraction (HFpEF): (2) RADHA (obstructive sleep apnea): (3) Acute respiratory failure with hypoxia and hypercapnia: (4) CKD (chronic kidney disease), stage III: (5) Pulmonary hypertension: Plan IMPRESSION: 63-year-old female with a significant past medical history of morbid obesity, coronary artery disease, hypertension, CHF, untreated RADHA who presents with acute hypoxic respiratory failure secondary to fluid overload. Chest x-ray 11/19/2023 personally reviewed: Portable film, bilateral costophrenic angles are blunted, increased cardiac silhouette, no clear lung infiltrate appreciated 2D echo 07/30/2023: EF 60-65%, grade 1 diastolic dysfunction, RVSP 40-50 mmHg, mild to moderate MR, moderate concentric LVH VBG 11/18/2023: 7.//36 --Acute hypoxic respiratory failure Secondary to HFpEF with bilateral pleural effusion with medical noncompliance BNP 242 Respiratory bio fire negative for everything, procalcitonin negative --Bilateral pleural effusion Secondary to cardiac etiology Continue with diuresis -- Pulmonary hypertension Likely type II and possibly a component of type III On sildenafil from outpatient leasing consultant. Unsure if the patient has primary pulmonary hypertension. Will defer the management of that to outpatient leasing consultant/school age lead teacher -- RADHA Has not received her CPAP at home Plan: Continue with diuresis to keep the patient negative balance. Incentive spirometry. BiPAP 14/8. If the patient is not able to tolerate this setting then decrease it to 12/6. If she still not able to tolerate then changed to CPAP of 8 and increase it to 8 and then 10. Patient was reluctant to use BiPAP but importance of using it explained in depth. Case was discussed with RN at bedside. Please note the above document was generated using voice recognition software. It may contain grammatical, syntax or spelling errors.Any formal questions or concerns about the content, text or information contained within the body of this dictation should be directly addressed to the provider for clarification. History of Present Illness Attending Physician: Maxine Casillas MD History of Present Illness 63-year-old female admitted to the hospital with shortness of breath Past medical history: HFpEF, RADHA, pulmonary hypertension, obesity Pulmonary consulted for persistent hypoxia At the time of examination patient was saturating 93-94% on 14 L nasal cannula. She was in mild respiratory distress. Denies any chest pain. They state that she is feeling better compared to when she came to the hospital She stated that she ran out of her Lasix at home. She was compliant with other medication but she is not sure what she was taking. She has still not received her CPAP/BiPAP at home. Denies any fever or chills. No dysuria, diarrhea. No headache, blurry vision. No nausea or vomiting Allergies Allergy/AdvReac Type Severity Reaction Status Date / Time No Known Allergies Allergy Verified 09/24/23 20:25 Home Medications Medication Instructions Recorded Confirmed Type amlodipine 10 mg tablet 10 mg PO DAILY 07/29/23 11/18/23 History escitalopram oxalate 20 mg tablet 20 mg PO DAILY 07/29/23 11/18/23 History hydralazine 100 mg tablet 100 mg PO TID 07/29/23 11/18/23 History metoprolol succinate 100 mg 100 mg PO QAM 07/29/23 11/18/23 History tablet,extended release 24 hr sildenafil (pulm.hypertension) 20 20 mg PO TID 07/29/23 11/18/23 History mg tablet rosuvastatin 20 mg tablet (Crestor) 20 mg PO QAM #0 tabs 08/07/23 11/18/23 Rx insulin glargine 100 unit/mL (3 25 unit subcut QAM 09/24/23 11/18/23 History mL) subcutaneous pen (Lantus Solostar U-100 Insulin) aspirin 325 mg tablet 325 mg PO DAILY 09/25/23 11/18/23 History torsemide 20 mg tablet 20 mg PO BID #90 tabs 09/28/23 11/18/23 Rx Patient History Surgical History History of cardiac cath s/p stents Social History Smoking Status: Never smoker Do You Dip or Chew Tobacco: No; Hx Alcohol Use: No Hx Substance Use: No Preferred Language: Luxembourger Communication Ability: Effective Barrel Reamer Required: No Beliefs That Will Affect Care: None Current Living Situation: Family Current Living Situation Comment: lives with son Feels Safe at Home: Yes Safety Concerns: Feels Safe At This Time Gender Identity: Female Assistive Devices: Bedside Commode, Oxygen - Continuous and Walker Assistive Devices Comment: shower chair Review of Systems 2 Review of Systems: All systems reviewed & are unremarkable except as noted in HPI & below Physical Exam 2 Physical Exam: Constitutional: No acute distress HEENT: EOMI, PERRLA Respiratory system: Decreased air entry bilaterally, no wheeze, no rhonchi, positive crackles bilateral lower lobes CVS: S1-S2 positive, no murmurs or gallops, distant heart sounds Abdomen: Soft, nontender, nondistended, positive bowel sounds x4, obese Extremities: +2 pulses bilaterally radialis/ dorsalis pedis, no cyanosis, +2 pitting edema bilateral lower extremity Neuro: Awake alert oriented x3 Psych: Normal mood and affect G/U: Positive [place] Skin: no rashes, warm and dry Lymphatic: no cervical or axillary lymphadenopathy Results & Data Results & Data Vital Signs (Past 12 Hours) Vital Signs Temp Pulse Pulse Resp BP Pulse Ox O2 Del Method 11/20/23 08:16 36.5 C 60 20 141/63 H High Flow Nasal Cannula 11/20/23 07:35 65 11/20/23 04:20 High Flow Nasal Cannula 11/20/23 03:07 59 L 22 94 11/20/23 02:44 36.6 C 59 L 19 155/70 H 92 BiPAP 11/19/23 23:32 36.7 C 57 L 18 147/85 H 94 BiPAP O2 Flow Rate FiO2 11/20/23 08:16 11/20/23 07:35 11/20/23 04:20 14 11/20/23 03:07 60 11/20/23 02:44 11/19/23 23:32 Laboratory Results 11/20/23 08:49 11/20/23 08:49 PG Care Time/CCT Total # of Minutes Spent Total Time Spent with Patient: Total time spent is greater than 50% in coordination of care (as documented) at patient's floor/unit and/or counseling patient: Coding Level of Care Code 78576 INT INP/OBS CARE 3/75MIN Diagnoses Acute on chronic heart failure with preserved ejection fraction (HFpEF) I50.33 RADHA (obstructive sleep apnea) G47.33 Acute respiratory failure with hypoxia and hypercapnia J96.01; J96.02 CKD (chronic kidney disease), stage III N18.30 Pulmonary hypertension I27.20
--- NOTE | 2023-11-20 11:33 | Procedure Note ---
Procedure Note Date of Service November 20, 2023 Note Bedside Ultrasound: Lung: Right:-Moderate pleural effusion on the right side with compressive atelectasis of the right lower lobe, B-lines posteriorly and anteriorly Left:-Small left-sided pleural effusion with compressive atelectasis of the left lower lobe, B-lines posteriorly and anteriorly Please note the above document was generated using voice recognition software. It may contain grammatical, syntax or spelling errors.Any formal questions or concerns about the content, text or information contained within the body of this dictation should be directly addressed to the provider for clarification. Coding CPT Codes Pulmonary/Thoracic - Pulmonary and Thoracic: 61727 US, Chest, real time with imaging documentation ([id number]) [facility] [place] Procedure Codes (Charges) Pulmonary/Thoracic Procedure 1: Pulmonary and Thoracic: 98042 US, Chest, real time with imaging documentation
--- NOTE | 2023-11-20 23:03 | Electrocardiogram Report ---
Test Reason : Blood Pressure : / mmHG Vent. Rate : 060 BPM Atrial Rate : 060 BPM P-R Int : 176 ms QRS Dur : 120 ms QT Int : 438 ms P-R-T Axes : 033 -12 021 degrees QTc Int : 438 ms Normal sinus rhythm Incomplete left bundle block Minimal voltage criteria for LVH, may be normal variant ( [place] product ) Borderline ECG When compared with ECG of 24-SEP-2023 18:46, No significant change was found Confirmed by Trell Amaya ([id number]) on 11/20/2023 11:02:41 PM Referred By: REFERRED SELF Confirmed By:Trell Amaya
--- NOTE | 2023-11-20 23:03 | Electrocardiogram Report ---
Test Reason : Blood Pressure : / mmHG Vent. Rate : 053 BPM Atrial Rate : 053 BPM P-R Int : 184 ms QRS Dur : 118 ms QT Int : 454 ms P-R-T Axes : 038 -23 038 degrees QTc Int : 426 ms Sinus bradycardia Incomplete left bundle block Borderline ECG When compared with ECG of 18-NOV-2023 04:53, No significant change was found Confirmed by Trell Amaya ([id number]) on 11/20/2023 11:02:57 PM Referred By: REFERRED SELF Confirmed By:Trell Amaya
[2023-11-21 06:29] LABS: Hematocrit (blood only) 31.4 % (37.0-47.0); Hemoglobin 10.1 g/dl (12.0-16.0); Mean Corpuscular Hgb Conc 32.2 g/dL (32.0-36.0); Mean Corpuscular Volume 80.9 fL (80.0-100.0); Mean Platelet Volume 9.4 fL (9.4-12.4); Platelet Count 252 K/uL (130-400); RDW Coefficient of Variation 14.3 % (11.5-14.5); RDW Standard Deviation 42.2 fL (36.4-46.3); Red Blood Count 3.88 M/uL (4.20-5.40); White Blood Count 7.14 K/ul (4.8-10.8)
[2023-11-21 06:38] LABS: BUN Creatinine Ratio 59.2 (10-20); Calcium 9.9 mg/dl (8.6-10.3); Creatinine Clr Calc Pharmacy 41.9 ml/min; Est GFR (African American) 41.3 ml/min; Est GFR (Non-African American) 35.6 ml/min; Potassium 5.1 mmol/L (3.5-5.1)
[2023-11-21] MEDS ORDERED: ROSUVASTATIN CALCIUM 10 MG TAB PO SCH (09:00)
--- NOTE | 2023-11-21 10:43 | Pulmonology Progress Note ---
Date of Service November 21, 2023 Assessment & Plan (1) Acute on chronic heart failure with preserved ejection fraction (HFpEF): (2) RADHA (obstructive sleep apnea): (3) Acute respiratory failure with hypoxia and hypercapnia: (4) CKD (chronic kidney disease), stage III: (5) Pulmonary hypertension: Plan IMPRESSION: 63-year-old female with a significant past medical history of morbid obesity, coronary artery disease, hypertension, CHF, untreated RADHA who presents with acute hypoxic respiratory failure secondary to fluid overload. Chest x-ray 11/19/2023 personally reviewed: Portable film, bilateral costophrenic angles are blunted, increased cardiac silhouette, no clear lung infiltrate appreciated 2D echo 07/30/2023: EF 60-65%, grade 1 diastolic dysfunction, RVSP 40-50 mmHg, mild to moderate MR, moderate concentric LVH VBG 11/18/2023: 7.27/52/36 --Acute hypoxic respiratory failure Secondary to HFpEF with bilateral pleural effusion with medical noncompliance BNP 242 Respiratory bio fire negative for everything, procalcitonin negative --Bilateral pleural effusion Secondary to cardiac etiology Continue with diuresis -- Pulmonary hypertension Likely type II and possibly a component of type III On sildenafil from outpatient civil defense director. Unsure if the patient has primary pulmonary hypertension. Will defer the management of that to outpatient civil defense director/export coordinator -- RADHA Has not received her CPAP at home Plan: In/out: -2.1 L, urine output 3300 mL, -8 L since coming to the hospital Continue with diuresis to keep the patient negative balance. Incentive spirometry. Would recommend to get case management involved to see if he can get the CPAP machine for the patient at home prior to discharge Out of bed to chair Case was discussed with RN at bedside and primary team Please note the above document was generated using voice recognition software. It may contain grammatical, syntax or spelling errors.Any formal questions or concerns about the content, text or information contained within the body of this dictation should be directly addressed to the provider for clarification. Admission and Anticipated Discharge Date Admission Date: November 18, 2023 Subjective Patient seen and examined at bedside. No acute distress, neurology was overnight She used her BiPAP overnight. She was saturating 91% on 10 L nasal cannula Her mood is much better today. Answering all the questions appropriately Has been diuresing well Denied any nausea vomiting, fair appetite No headache, no blurry vision Review of Systems 2 Review of Systems: All systems reviewed & are unremarkable except as noted in Subjective Physical Exam 2 Physical Exam: Constitutional: No acute distress HEENT: EOMI, PERRLA Respiratory system: Decreased air entry bilaterally, no wheeze, no rhonchi, positive crackles bilateral lower lobes CVS: S1-S2 positive, no murmurs or gallops, distant heart sounds Abdomen: Soft, nontender, nondistended, positive bowel sounds x4, obese Extremities: +2 pulses bilaterally radialis/ dorsalis pedis, no cyanosis, +1 pitting edema bilateral lower extremity Neuro: Awake alert oriented x3 Psych: Normal mood and affect G/U: Positive [place] Skin: no rashes, warm and dry Lymphatic: no cervical or axillary lymphadenopathy Results & Data Results & Data Vital Signs (Past 12 Hours) Vital Signs Temp Pulse Pulse Resp BP Pulse Ox O2 Del Method 11/21/23 09:25 92 High Flow Nasal Cannula 11/21/23 08:00 36.7 C 61 16 145/63 H 94 BiPAP 11/21/23 07:38 High Flow Nasal Cannula 11/21/23 07:02 59 L 11/21/23 04:09 55 L 18 97 11/21/23 03:08 36.9 C 56 L 18 153/79 H 93 BiPAP 11/20/23 23:13 59 L 11/20/23 23:05 37.0 C 60 19 147/70 H 91 Nasal Cannula O2 Flow Rate FiO2 11/21/23 09:25 12 11/21/23 08:00 11/21/23 07:38 13 11/21/23 07:02 11/21/23 04:09 60 11/21/23 03:08 11/20/23 23:13 11/20/23 23:05 13 Laboratory Results 11/21/23 05:38 11/21/23 05:38 PG Care Time/CCT Total # of Minutes Spent Total Time Spent with Patient: Total time spent is greater than 50% in coordination of care (as documented) at patient's floor/unit and/or counseling patient: Coding Level of Care Code 73648 SUB INP/OBS CARE 3/50MIN Diagnoses Acute on chronic heart failure with preserved ejection fraction (HFpEF) I50.33 RADHA (obstructive sleep apnea) G47.33 Acute respiratory failure with hypoxia and hypercapnia J96.01; J96.02 CKD (chronic kidney disease), stage III N18.30 Pulmonary hypertension I27.20
--- NOTE | 2023-11-21 12:41 | Hospitalist Progress Note ---
Date of Service November 21, 2023 Assessment & Plan (1) Acute hypoxemic respiratory failure: (2) Acute on chronic heart failure with preserved ejection fraction (HFpEF): (3) CKD (chronic kidney disease), stage III: (4) Obesity, morbid, BMI 40.0-49.9: (5) Diabetes mellitus, type II: (6) Hyperkalemia: Plan 63-year-old female who has a significant past medical history of insulin- dependent T2DM, RADHA on nocturnal oxygen, pulmonary hypertension, morbid obesity, chronic diastolic heart failure, history of CVA, HTN, HLD, CKD and depression with anxiety who presents to ED secondary to shortness of breath x 4 days. Patient reported being out of home torsemide for 2 days due to pharmacy being out and couldn't get the med Echocardiogram on 07/30/2023 revealed EF 60 to 65%, grade 1 diastolic dysfunction, left atrium moderately dilated, mild to moderate MR and elevated RVSP at 40 to 50 mmHg Chest x-ray revealed cardiomegaly with prominence of pulmonary vasculature. Layering pleural effusions with dependent consolidation. Acute hypoxemic respiratory failure Acute on chronic heart failure with preserved ejection fraction Required BIPAP in ER on admission Still requiring HFNC, improved from 15L to 10L today Was on 2L oxygen at home per patient Continue Lasix 60 mg IV BID Ventura catheter in place Daily weight, strict intake and output Cardiology eval appreciated Pulm eval appreciated Continue BIPAP HS Hx Lung nodules Subcarinal Lymphadenopathy Recent PET scan from 11/17/23 - next appt with pulmonology on 11/23/23 as outpt IMPRESSION 1. Enlarged subcarinal lymph node with mildly hypermetabolic activity, which is nonspecific, possibly reactive. Comparison to the images from outside prior exams may be helpful. 2. Patchy consolidations and atelectasis in both lungs are improved in some regions and worsened in others. No worrisome focally increased uptake. 3. Moderate right and small left pleural effusions with activation of the accessory muscles of respiration. 4. Enlarged ovaries without increased uptake. Recommend pelvic ultrasound for further evaluation and/or comparison to outside prior exams. CKD stage III, baseline creatinine 1.5-2 Hyperkalemia on admission Cr improved with diuresis from 2 on admission to 1.52 today Previously on Lokelma, this was DC'd Also previously on lisinopril and Aldactone, but this has been on hold since last admission due to renal function Avoid nephrotoxic agents, monitor renal function closely with diuresis Insulin-dependent T2DM Last A1c 8.6 on 09/25/2023 Lantus/NovoLog per protocol During previous admission metformin and Jardiance discontinued due to renal function CAD hx of Stent Hypertension HLD - on crestor Patient with elevated BPs in ED, likely in setting of overload as well as she did not take her morning medication Continue amlodipine, hydralazine and metoprolol History of CVA MRI brain in July revealed small acute infarcts in bilateral occipital lobe concerning for embolic infarcts On ASA 325 daily Given significant fall risk and vision issues no anticoagulation recommended unless clear arrhythmias confirmed RADHA, untreated, cpap noncompliant Pulmonary hypertension Continue sildenafil Possible that RADHA is contributing, pt reports having been told many years ago had it but noncompliant with mask Continue BIPAP inpatient. May need to follow up with Sleep medicine for continued management on dc Depression with anxiety Continue lexapro Morbid Obesity, BMI 45 Continue to encourage diet and lifestyle modifications DVT ppx : SQ Heparin DNR/DNI PCP: Bridgette Celis FEN/GI: HH carb controlled diet I spent a total of 45 minutes coordinating, documenting and providing care for this patient excluding time spent in performance of separately billed services Admission and Anticipated Discharge Date Admission Date: November 18, 2023 Subjective Patient seen and examined. Reports shortness of breath is improving. Reports cough. Denies chest pain, nausea, vomiting, abdominal pain. Reports constipation. Denies other complaints Reports that she used to BiPAP overnight Physical Exam Constitutional: + well hydrated and + obese; no acute di stress Eyes: PERRL, conjunctivae normal, anicteric sclerae ENMT: external ear and nose normal, oropharynx normal Respiratory: Oxygen requirement improved, down to 10 L/min via high flow nasal cannula, diminished breath sounds Cardiovascular: Rate/Rhythm: regular rate and regular rhythm Gastrointestinal (Abdomen): normal bowel sounds, soft, nontender, no hepatosplenomegaly Musculoskeletal: Pretibial edema Neurologic: PERRL, EOMI, accommodation nl, no face palsy, no dysarthria Psychiatric: A+Ox3, euthymic affect Genitourinary: Ventura in situ Results & Data Results & Data Vital Signs (Past 12 Hours) Vital Signs Temp Pulse Pulse Resp BP Pulse Ox O2 Del Method 11/21/23 10:45 91 High Flow Nasal Cannula 06/08/24 09:25 92 High Flow Nasal Cannula 11/21/23 08:00 36.7 C 61 16 145/63 H 94 BiPAP 11/21/23 07:38 High Flow Nasal Cannula 11/21/23 07:02 59 L 11/21/23 04:09 55 L 18 97 11/21/23 03:08 36.9 C 56 L 18 153/79 H 93 BiPAP O2 Flow Rate FiO2 11/21/23 10:45 10 11/21/23 09:25 12 11/21/23 08:00 11/21/23 07:38 13 11/21/23 07:02 11/21/23 04:09 60 11/21/23 03:08 Laboratory Results Abnormal lab results 11/20/23 11/20/23 11/21/23 Range/Units 16:15 20:12 05:38 RBC 3.88 L (4.20-5.40) M/uL Hgb 10.1 L (12.0-16.0) g/dl Hct 31.4 L (37.0-47.0) % BUN 90 H (6-23) mg/dl Creatinine 1.52 H (0.6-1.2) mg/dl BUN/Creatinine Ratio 59.2 H (10-20) Glucose 125 H (70-99(Fasting)) mg/dl POC Glucose 135 H 192 H (70-99) mg/dl 11/21/23 11/21/23 Range/Units 07:46 11:17 RBC (4.20-5.40) M/uL Hgb (12.0-16.0) g/dl Hct (37.0-47.0) % BUN (6-23) mg/dl Creatinine (0.6-1.2) mg/dl BUN/Creatinine Ratio (10-20) Glucose (70-99(Fasting)) mg/dl POC Glucose 146 H 186 H (70-99) mg/dl
[2023-11-21] MEDS: DOCUSATE SODIUM/SENNA 50/8.6MG TAB PO SCH (13:39)
[2023-11-21] MEDS: POLYETHYLENE (MIRALAX) 17 GM PACK PO SCH (13:39)
--- NOTE | 2023-11-21 15:26 | Cardiology Progress Note ---
Date of Service November 21, 2023 Assessment & Plan (1) Acute on chronic heart failure with preserved ejection fraction (HFpEF): (2) Hyperkalemia: (3) Obesity, morbid, BMI 40.0-49.9: Plan Continue IV furosemide 60 mg twice daily Monitor I/O's, daily weight, daily metabolic panels. Continue antihypertensives including metoprolol, amlodipine, and hydralazine No JAMIE, ARB, ARNi, or mineralocorticoid receptor antagonists due to renal insufficiency and hyperkalemia. Continue aspirin and rosuvastatin. No nitrates given present use of sildenafil (? truly needed) Recommend revaluation and treatment for sleep apnea. I spent a total of 17 minutes on the date of service in preparation, delivery, and documentation of the care provided to this patient excluding any time spent in the performance of separately billed services. This visit was a split-shared visit with the substantive portion of the medical decision making performed by the supervising mine equipment design engineer/billing provider. Admission and Anticipated Discharge Date Admission Date: November 18, 2023 Supervising Physician Co-Signing Physician Notes I have reviewed the advanced practitioner's documentation on the date of service referenced in note, and I agree with, and take responsibility for the plan of care. I spent a total of [10] minutes coordinating, documenting, and providing care for this patient excluding time spent in the performance of separately billed services or time spent by another provider. Subjective Patient seen and examined. Chart, medications, telemetry reviewed Feeling better. Less shortness of breath. No chest pain. No palpitations. SpO2 94% on 4 L/min via nasal cannula (was on 15 L via high flow nasal cannula yesterday) I/O's: -2745, -3160, -2145 (-8050 mL overall) Telemetry: Sinus rhythm in the 60s Review of Systems Review of Systems: Complete review of systems is otherwise as stated above, negative, or noncontributory. Physical Exam Physical Exam: General: A&Ox3. NAD. HENT: Normocephalic. Atraumatic. Eyes: PER. Conjunctiva pink, sclera clear. Neck: Unable to appreciate neck veins Heart: RRR, 60 bpm. Lungs: Diminished. No wheeze. Abdomen: +BS. Soft. Nontender. No masses or organomegaly. Extremities: Lymphedematous changes with nonpitting diffuse edema. No clubbing. No cyanosis Limited neurological examination is without focal deficits. Results & Data Vital Signs (Past 12 Hours) Vital Signs Temp Pulse Pulse Resp BP Pulse Ox O2 Del Method 11/21/23 15:13 36.8 C 74 150/66 H 94 Nasal Cannula 11/21/23 14:53 56 L 11/21/23 10:45 91 High Flow Nasal Cannula 11/21/23 09:25 92 High Flow Nasal Cannula 11/21/23 08:00 36.7 C 61 16 145/63 H 94 BiPAP 11/21/23 07:38 High Flow Nasal Cannula 11/21/23 07:02 59 L 11/21/23 04:09 55 L 18 97 O2 Flow Rate FiO2 11/21/23 15:13 4 11/21/23 14:53 11/21/23 10:45 10 11/21/23 09:25 12 11/21/23 08:00 11/21/23 07:38 13 11/21/23 07:02 11/21/23 04:09 60 Laboratory Results CBC 11/21/23 Range/Units 05:38 WBC 7.14 (4.8-10.8) K/ul RBC 3.88 L (4.20-5.40) M/uL Hgb 10.1 L (12.0-16.0) g/dl Hct 31.4 L (37.0-47.0) % Plt Count 252 (130-400) K/uL Comprehensive Metabolic Panel 11/21/23 Range/Units 05:38 Sodium 138 (136-145) mmol/L Potassium 5.1 (3.5-5.1) mmol/L Chloride 105 (98-107) mmol/L Carbon Dioxide 26 (21-32) mmol/L BUN 90 H (6-23) mg/dl Creatinine 1.52 H (0.6-1.2) mg/dl Glucose 125 H (70-99(Fasting)) mg/dl Calcium 9.9 (8.6-10.3) mg/dl Intake and Output 11/21/23 11/21/23 11/21/23 06:59 14:59 22:59 Intake Total 275 / 1155 Output Total 1900 / 3300 Balance -1625 / -2145 Intake: Oral 275 / 1155 Output: Urine Amount (Catheter) 1900 / 3300 Ventura/Indwelling 1899 Other: Other Intake Source SIPS Weight 108.136 kg Weight Measurement Method Built in [facility]
[2023-11-22 07:01] LABS: Hematocrit (blood only) 29.8 % (37.0-47.0); Hemoglobin 9.7 g/dl (12.0-16.0); Mean Corpuscular Hemoglobin 26.1 pg (25.0-34.0); Mean Corpuscular Hgb Conc 32.6 g/dL (32.0-36.0); Mean Corpuscular Volume 80.1 fL (80.0-100.0); Mean Platelet Volume 9.4 fL (9.4-12.4); Platelet Count 234 K/uL (130-400); RDW Coefficient of Variation 14.1 % (11.5-14.5); RDW Standard Deviation 41.4 fL (36.4-46.3); Red Blood Count 3.72 M/uL (4.20-5.40); White Blood Count 7.35 K/ul (4.8-10.8)
[2023-11-22 07:16] LABS: Potassium 5.1 mmol/L (3.5-5.1)
[2023-11-22 07:17] LABS: BUN Creatinine Ratio 59.3 (10-20); Calcium 9.8 mg/dl (8.6-10.3); Creatinine Clr Calc Pharmacy 42.4 ml/min; Est GFR (African American) 41.9 ml/min; Est GFR (Non-African American) 36.2 ml/min
--- NOTE | 2023-11-22 08:17 | XRay Report ---
SINGLE VIEW CHEST CLINICAL HISTORY: Follow-up congestive failure FINDINGS: An AP, portable, upright chest radiograph is compared to study dated 11/19/2023 and correlate d with chest CT dated 09/25/2023. The heart is enlarged. Pulmonary vascular congestion persists. There are layering pleural effusions with bibasilar consolidation. No pneumothorax is seen. The skeletal s tructures are osteopenic. The bony thorax is grossly intact. IMPRESSION: 1. Cardiomegaly with evidence of congestive failure. This is similar to previous. 2. Layering pleural effusions with dependent consolidation. This is also unchanged. Follow-up to reso lution is recommended. ACT 112: Negative or not required by law. Electronically signed by: Tomi Miller M.D. 11/22/2023 8:16 AM
[2023-11-22] MEDS: ROSUVASTATIN CALCIUM 10 MG TAB PO SCH (08:27)
--- NOTE | 2023-11-22 10:49 | Hospitalist Progress Note ---
Date of Service November 22, 2023 Assessment & Plan (1) Acute hypoxemic respiratory failure: (2) Acute on chronic heart failure with preserved ejection fraction (HFpEF): (3) CKD (chronic kidney disease), stage III: (4) Obesity, morbid, BMI 40.0-49.9: (5) Diabetes mellitus, type II: (6) Hyperkalemia: Plan 63-year-old female who has a significant past medical history of insulin- dependent T2DM, RADHA on nocturnal oxygen, pulmonary hypertension, morbid obesity, chronic diastolic heart failure, history of CVA, HTN, HLD, CKD and depression with anxiety who presents to ED secondary to shortness of breath x 4 days. Patient reported being out of home torsemide for 2 days due to pharmacy being out and couldn't get the med Echocardiogram on 07/30/2023 revealed EF 60 to 65%, grade 1 diastolic dysfunction, left atrium moderately dilated, mild to moderate MR and elevated RVSP at 40 to 50 mmHg Chest x-ray revealed cardiomegaly with prominence of pulmonary vasculature. Layering pleural effusions with dependent consolidation. Acute hypoxemic respiratory failure Acute on chronic heart failure with preserved ejection fraction Required BIPAP in ER on admission Still requiring HFNC, improved from 15L to 10L today Was on 2L oxygen at home per patient Continue Lasix 60 mg IV BID [place] catheter in place Daily weight, strict intake and output Cardiology eval appreciated Pulm eval appreciated Used BIPAP till 3AM. Discussed with resp therapist Lukas. Will reduce to 12/6 per pulm recs Hx Lung nodules Subcarinal Lymphadenopathy Recent PET scan from 11/17/23 - next appt with pulmonology on 11/23/23 as outpt IMPRESSION 1. Enlarged subcarinal lymph node with mildly hypermetabolic activity, which is nonspecific, possibly reactive. Comparison to the images from outside prior exams may be helpful. 2. Patchy consolidations and atelectasis in both lungs are improved in some regions and worsened in others. No worrisome focally increased uptake. 3. Moderate right and small left pleural effusions with activation of the a ccessory muscles of respiration. 4. Enlarged ovaries without increased uptake. Recommend pelvic ultrasound for further evaluation and/or comparison to outside prior exams. CKD stage III, baseline creatinine 1.5-2 Hyperkalemia on admission Cr improved with diuresis from 2 on admission to 1.52 today Previously on Lokelma, this was DC'd Also previously on lisinopril and Aldactone, but this has been on hold since last admission due to renal function Avoid nephrotoxic agents, monitor renal function closely with diuresis Insulin-dependent T2DM Last A1c 8.6 on 09/25/2023 Lantus/NovoLog per protocol During previous admission metformin and Jardiance discontinued due to renal function CAD hx of Stent Hypertension HLD - on crestor Patient with elevated BPs in ED, likely in setting of overload as well as she did not take her morning medication Continue amlodipine, hydralazine and metoprolol History of CVA MRI brain in July revealed small acute infarcts in bilateral occipital lobe concerning for embolic infarcts On ASA 325 daily Given significant fall risk and vision issues no anticoagulation recommended unless clear arrhythmias confirmed RADHA, untreated, cpap noncompliant Pulmonary hypertension Continue sildenafil Possible that RADHA is contributing, pt reports having been told many years ago had it but noncompliant with mask Continue BIPAP inpatient. May need to follow up with Sleep medicine for continued management on dc Depression with anxiety Continue lexapro Morbid Obesity, BMI 45 Continue to encourage diet and lifestyle modifications DVT ppx : SQ Heparin DNR/DNI PCP: Bridgette Celis FEN/GI: HH carb controlled diet I spent a total of 40 minutes coordinating, documenting and providing care for this patient excluding time spent in performance of separately billed services Admission and Anticipated Discharge Date Admission Date: November 18, 2023 Subjective Patient seen and examined. Reports shortness of breath is improving. Reports mild cough. Constipation has resolved Denied any new complaints Physical Exam Constitutional: + well hydrated and + obese; no acute di stress Eyes: PERRL, conjunctivae normal, anicteric sclerae ENMT: external ear and nose normal, oropharynx normal Respiratory: On NC at 6L/min, diminished breath sounds Cardiovascular: Rate/Rhythm: regular rate and regular rhythm S1 S2 Gastrointestinal (Abdomen): normal bowel sounds, soft, nontender, no hepatosplenomegaly Musculoskeletal: Pretibial edema Neurologic: PERRL, EOMI, accommodation nl, no face palsy, no dysarthria Psychiatric: A+Ox3, euthymic affect Results & Data Results & Data Vital Signs (Past 12 Hours) Vital Signs Temp Pulse Pulse Resp BP Pulse Ox O2 Del Method 11/22/23 09:08 High Flow Nasal Cannula 11/22/23 09:05 90 High Flow Nasal Cannula 11/22/23 08:40 36.7 C 66 20 148/83 H 96 Nasal Cannula 11/22/23 07:11 60 11/22/23 02:44 36.8 C 62 19 157/73 H 90 Nasal Cannula 11/21/23 23:11 36.9 C 59 L 19 151/82 H 95 BiPAP O2 Flow Rate 11/22/23 09:08 6 11/22/23 09:05 6 11/22/23 08:40 13 11/22/23 07:11 11/22/23 02:44 13 11/21/23 23:11 Laboratory Results Abnormal lab results 11/21/23 11/21/23 11/22/23 Range/Units 16:32 20:32 05:29 RBC 3.72 L (4.20-5.40) M/uL Hgb 9.7 L (12.0-16.0) g/dl Hct 29.8 L (37.0-47.0) % BUN 89 H (6-23) mg/dl Creatinine 1.50 H (0.6-1.2) mg/dl BUN/Creatinine Ratio 59.3 H (10-20) Glucose 114 H (70-99(Fasting)) mg/dl POC Glucose 145 H 169 H (70-99) mg/dl 11/22/23 11/22/23 Range/Units 07:36 11:31 RBC (4.20-5.40) M/uL Hgb (12.0-16.0) g/dl Hct (37.0-47.0) % BUN (6-23) mg/dl Creatinine (0.6-1.2) mg/dl BUN/Creatinine Ratio (10-20) Glucose (70-99(Fasting)) mg/dl POC Glucose 142 H 186 H (70-99) mg/dl
--- NOTE | 2023-11-22 10:53 | Pulmonology Progress Note ---
Date of Service November 22, 2023 Assessment & Plan (1) Acute on chronic heart failure with preserved ejection fraction (HFpEF): (2) RADHA (obstructive sleep apnea): (3) Acute respiratory failure with hypoxia and hypercapnia: (4) CKD (chronic kidney disease), stage III: (5) Pulmonary hypertension: Plan IMPRESSION: 63-year-old female with a significant past medical history of morbid obesity, coronary artery disease, hypertension, CHF, untreated RADHA who presents with acute hypoxic respiratory failure secondary to fluid overload. Chest x-ray 11/19/2023 personally reviewed: Portable film, bilateral costophrenic angles are blunted, increased cardiac silhouette, no clear lung infiltrate appreciated 2D echo 07/30/2023: EF 60-65%, grade 1 diastolic dysfunction, RVSP 40-50 mmHg, mild to moderate MR, moderate concentric LVH VBG 11/18/2023: 7.27/52/36 --Acute hypoxic respiratory failure Secondary to HFpEF with bilateral pleural effusion with medical noncompliance BNP 242 Respiratory bio fire negative for everything, procalcitonin negative --Bilateral pleural effusion Secondary to cardiac etiology Continue with diuresis -- Pulmonary hypertension Likely type II and possibly a component of type III On sildenafil from outpatient science center display builder. Unsure if the patient has primary pulmonary hypertension. Will defer the management of that to outpatient science center display builder/kosher dietary service manager -- RADHA Has not received her CPAP at home Plan: In/out: -3.3L, urine output 3400 mL, -11 L since coming to the hospital Chest x-ray from today still shows bilateral pleural effusion, there is some improvement in aeration especially on the left side Continue with diuresis to keep the patient negative balance. Incentive spirometry. Would recommend to get case management involved to see if she can get the CPAP machine for the patient at home prior to discharge Out of bed to chair Case was discussed with RN Please note the above document was generated using voice recognition software. It may contain grammatical, syntax or spelling errors.Any formal questions or concerns about the content, text or information contained within the body of this dictation should be directly addressed to the provider for clarification. Admission and Anticipated Discharge Date Admission Date: November 18, 2023 Subjective Patient seen and examined at bedside. No acute distress, notable symptoms overnight. She was saturating 93-94% on 6 L nasal cannula. She did sit on the chair all day yesterday. She did use BiPAP but not the whole night. Shortness of breath is improved. Diuresing well Denies any chest pain Fair appetite Review of Systems 2 Review of Systems: All systems reviewed & are unremarkable except as noted in Subjective Physical Exam 2 Physical Exam: Constitutional: No acute distress HEENT: EOMI, PERRLA Respiratory system: Decreased air entry bilaterally, no wheeze, no rhonchi, positive crackles bilateral lower lobes CVS: S1-S2 positive, no murmurs or gallops, distant heart sounds Abdomen: Soft, nontender, nondistended, positive bowel sounds x4, obese Extremities: +2 pulses bilaterally radialis/ dorsalis pedis, no cyanosis, +1 pitting edema bilateral lower extremity Neuro: Awake alert oriented x3 Psych: Normal mood and affect G/U: Positive [place] Skin: no rashes, warm and dry Lymphatic: no cervical or axillary lymphadenopathy Results & Data Results & Data Vital Signs (Past 12 Hours) Vital Signs Temp Pulse Pulse Resp BP Pulse Ox O2 Del Method 11/22/23 09:08 High Flow Nasal Cannula 11/22/23 09:05 90 High Flow Nasal Cannula 11/22/23 08:40 36.7 C 66 20 148/83 H 96 Nasal Cannula 11/22/23 07:11 60 11/22/23 02:44 36.8 C 62 19 157/73 H 90 Nasal Cannula 11/21/23 23:11 36.9 C 59 L 19 151/82 H 95 BiPAP O2 Flow Rate 11/22/23 09:08 6 11/22/23 09:05 6 11/22/23 08:40 13 11/22/23 07:11 11/22/23 02:44 13 11/21/23 23:11 Laboratory Results 11/22/23 05:29 11/22/23 05:29 PG Care Time/CCT Total # of Minutes Spent Total Time Spent with Patient: Total time spent is greater than 50% in coordination of care (as documented) at patient's floor/unit and/or counseling patient: Coding Level of Care Code 07827 SUB INP/OBS CARE 2/35MIN Diagnoses Acute on chronic heart failure with preserved ejection fraction (HFpEF) I50.33 RADHA (obstructive sleep apnea) G47.33 Acute respiratory failure with hypoxia and hypercapnia J96.01; J96.02 CKD (chronic kidney disease), stage III N18.30 Pulmonary hypertension I27.20
--- NOTE | 2023-11-22 14:25 | Cardiology Progress Note ---
<Statement entered by Adelita Velasco MD - 11/22/23 18:05> I have reviewed the advanced practitioner's documentation on the date of service referenced in note, and I agree with, and take responsibility for the plan of care. I spent a total of [10] minutes coordinating, documenting, and providing care for this patient excluding time spent in the performance of separately billed services or time spent by another provider. Date of Service November 22, 2023 Assessment & Plan (1) Acute on chronic heart failure with preserved ejection fraction (HFpEF): (2) Hyperkalemia: (3) Obesity, morbid, BMI 40.0-49.9: Plan No new recommendations today... Continue IV furosemide 60 mg twice daily Monitor I/O's, daily weight, daily metabolic panels. Continue antihypertensives including metoprolol, amlodipine, and hydralazine No JAMIE, ARB, ARNi, or mineralocorticoid receptor antagonists due to renal insufficiency and hyperkalemia. Continue aspirin and rosuvastatin. No nitrates given present use of sildenafil (? truly needed) Recommend revaluation and treatment for sleep apnea. I spent a total of 15 minutes on the date of service in preparation, delivery, and documentation of the care provided to this patient excluding any time spent in the performance of separately billed services. This visit was a split-shared visit with the substantive portion of the medical decision making performed by the supervising curam developer/billing provider. Admission and Anticipated Discharge Date Admission Date: November 18, 2023 Subjective Patient seen and examined. Chart, medications, telemetry reviewed Feeling better. Less shortness of breath. No chest pain. No palpitations. SpO2 96% on 6 L/min via high flow nasal cannula I/O's: -2745, -3160, -2145, -3301 (-11,151 mL's overall) Telemetry: Sinus rhythm in the 50 and 60s Review of Systems Review of Systems: Complete Review of Systems is as stated above, negative, or noncontributory. Physical Exam Physical Exam: General: A&Ox3. NAD. HENT: Normocephalic. Atraumatic. Eyes: PER. Conjunctiva pink, sclera clear. Neck: Unable to appreciate neck veins Heart: RRR, 60 bpm. Lungs: Diminished. No wheeze. Abdomen: +BS. Soft. Nontender. No masses or organomegaly. Extremities: Lymphedematous changes with nonpitting diffuse edema. No clubbing. No cyanosis Limited neurological examination is without focal deficits. Results & Data Vital Signs (Past 12 Hours) Vital Signs Temp Pulse Pulse Resp BP Pulse Ox O2 Del Method 11/22/23 12:00 36.7 C 77 144/81 H 97 High Flow Nasal Cannula 11/22/23 09:08 High Flow Nasal Cannula 11/22/23 09:05 90 High Flow Nasal Cannula 11/22/23 08:40 36.7 C 66 20 148/83 H 96 Nasal Cannula 11/22/23 07:11 60 11/22/23 02:44 36.8 C 62 19 157/73 H 90 Nasal Cannula O2 Flow Rate 11/22/23 12:00 6 11/22/23 09:08 6 11/22/23 09:05 6 11/22/23 08:40 13 11/22/23 07:11 11/22/23 02:44 13 Laboratory Results CBC 11/22/23 Range/Units 05:29 WBC 7.35 (4.8-10.8) K/ul RBC 3.72 L (4.20-5.40) M/uL Hgb 9.7 L (12.0-16.0) g/dl Hct 29.8 L (37.0-47.0) % Plt Count 234 (130-400) K/uL Comprehensive Metabolic Panel 11/22/23 Range/Units 05:29 Sodium 137 (136-145) mmol/L Potassium 5.1 (3.5-5.1) mmol/L Chloride 102 (98-107) mmol/L Carbon Dioxide 28 (21-32) mmol/L BUN 89 H (6-23) mg/dl Creatinine 1.50 H (0.6-1.2) mg/dl Glucose 114 H (70-99(Fasting)) mg/dl Calcium 9.8 (8.6-10.3) mg/dl Intake and Output 11/21/23 11/22/23 11/22/23 22:59 06:59 14:59 Intake Total 100 / 100 200 / 200 Output Total 1626 / 3401 1775 / 3401 Balance -1626 / -3301 -1675 / -3301 200 / 200 Intake: Oral 100 / 100 200 / 200 Output: Urine Amount (Catheter) 1625 / 3400 177 / 3400 Ventura/Indwelling 162 / 3400 177 / 3400 # Bowel Movements Other: Weight 107.9 kg 108.1 kg Weight Measurement Method Built in Bedscale Standing Scale Patient Weight 11/23/23 06:59 Weight 108.1 kg
[2023-11-23 06:47] LABS: Hematocrit (blood only) 29.1 % (37.0-47.0); Hemoglobin 9.5 g/dl (12.0-16.0); Mean Corpuscular Hemoglobin 26.4 pg (25.0-34.0); Mean Corpuscular Hgb Conc 32.6 g/dL (32.0-36.0); Mean Corpuscular Volume 80.8 fL (80.0-100.0); Mean Platelet Volume 9.4 fL (9.4-12.4); Platelet Count 229 K/uL (130-400); RDW Coefficient of Variation 14.1 % (11.5-14.5); RDW Standard Deviation 41.7 fL (36.4-46.3); White Blood Count 6.72 K/ul (4.8-10.8)
[2023-11-23 07:17] LABS: BUN Creatinine Ratio 45.8 (10-20); Calcium 9.7 mg/dl (8.6-10.3); Creatinine Clr Calc Pharmacy 32.9 ml/min; Est GFR (African American) 31.1 ml/min; Est GFR (Non-African American) 26.8 ml/min; Magnesium 2.2 mg/dl (1.7-2.4); Phosphorus 3.9 mg/dl (2.5-4.9); Potassium 4.7 mmol/L (3.5-5.1)
--- NOTE | 2023-11-23 08:30 | Hospitalist Progress Note ---
Date of Service November 23, 2023 Assessment & Plan (1) Acute hypoxemic respiratory failure: (2) Acute on chronic heart failure with preserved ejection fraction (HFpEF): (3) CKD (chronic kidney disease), stage III: (4) Obesity, morbid, BMI 40.0-49.9: (5) Diabetes mellitus, type II: (6) Hyperkalemia: Plan 63-year-old female who has a significant past medical history of insulin- dependent T2DM, RADHA on nocturnal oxygen, pulmonary hypertension, morbid obesity, chronic diastolic heart failure, history of CVA, HTN, HLD, CKD and depression with anxiety who presents to ED secondary to shortness of breath x 4 days. Patient reported being out of home torsemide for 2 days due to pharmacy being out and couldn't get the med. Echocardiogram on 07/30/2023 revealed EF 60 to 65%, grade 1 diastolic dysfunction, left atrium moderately dilated, mild to moderate MR and elevated RVSP at 40 to 50 mmHg Chest x-ray revealed cardiomegaly with prominence of pulmonary vasculature. Layering pleural effusions with dependent consolidation. Acute hypoxemic respiratory failure Acute on chronic heart failure with preserved ejection fraction Required BIPAP in ER on admission Still requiring HFNC, improved from 15L to 10L today Was on 2L oxygen at home per patient Continue Lasix 60 mg IV BID Ventura catheter in place Daily weight, strict intake and output. 24 hour diuresis; -2.2L Cardiology and pulmonary eval. appreciated Used Bipap overnight for a portion of the night. RT to continue to adjust settings Will obtain nocturnal O2 monitoring and ABG in AM for Home Bipap. Will need OPT RADHA sleep eval for home CPAP. CKD stage III, baseline creatinine 1.5-2 Hyperkalemia on admission: Cr improved with diuresis from 2 on admission, now elevating slightly 1.92. Continue to monitor creatinine Potassium normal at 4.7 Previously on Lokelma, this was DC'd Also previously on lisinopril and Aldactone, but this has been on hold since last admission due to renal function Avoid nephrotoxic agents, monitor renal function closely with diuresis Hx Lung nodules Subcarinal Lymphadenopathy Recent PET scan from 11/17/23 - next appt with pulmonology on 11/23/23 as outpt IMPRESSION 1. Enlarged subcarinal lymph node with mildly hypermetabolic activity, which is nonspecific, possibly reactive. Comparison to the images from outside prior exams may be helpful. 2. Patchy consolidations and atelectasis in both lungs are improved in some regions and worsened in others. No worrisome focally increased uptake. 3. Moderate right and small left pleural effusions with activation of the accessory muscles of respiration. 4. Enlarged ovaries without increased uptake. Recommend pelvic ultrasound for further evaluation and/or comparison to outside prior exams. Insulin-dependent T2DM: Last A1c 8.6 on 09/25/2023 Lantus/NovoLog per protocol During previous admission metformin and Jardiance discontinued due to renal function CAD hx of Stent: Hypertension: HLD - on crestor Patient with elevated BPs in ED, likely in setting of overload as well as she did not take her morning medication Continue amlodipine, hydralazine and metoprolol History of CVA: MRI brain in July revealed small acute infarcts in bilateral occipital lobe concerning for embolic infarcts On ASA 325 daily Given significant fall risk and vision issues no anticoagulation recommended unless clear arrhythmias confirmed RADHA, untreated, cpap noncompliant: Pulmonary hypertension: Continue sildenafil Possible that RADHA is contributing, pt reports having been told many years ago had it but noncompliant with mask Continue BIPAP inpatient. May need to follow up with Sleep medicine for continued management on dc Depression with anxiety: Continue lexapro Morbid Obesity, BMI 45: Continue to encourage diet and lifestyle modifications Disposition: DVT ppx : SQ Heparin DNR/DNI PCP: Bridgette Celis Diet: Heart Healthy CHO4 controlled diet I spent a total of 51 minutes coordinating, documenting and providing care for this patient excluding time spent in performance of separately billed services Admission and Anticipated Discharge Date Admission Date: November 18, 2023 Supervising Physician Co-Signing Physician Notes Patient seen and examined Patient reports symptoms are improving Cr bumped to 1.92 today Oxygen requirement continues to improve Tolerated BIPAP better last night with reduced pressure Plugman Dr Bain recommends doing IV lasix 60mg only one dose today and reassess in AM Card's eval appreciated Agree with findings and plans as detailed by Hannah LUNDBERG and take full responsibility Subjective Patient seen at bedside. She was sitting in her hospital bed in no apparent distress. She denies any current dyspnea and reports feeling better today. She did wear BiPAP overnight and had success with it She is open to being refitted for home CPAP, but she needs an outpatient sleep study which needs to be completed as an outpatient To qualify for home Bipap she will need to have an ABG and nocturnal pulse ox. Her SOB is improving; however, I did continue to auscultate crackles in her posterior bases. She is diuresing well and was - 2.2 L per last 24hour I/O. Discussed with Cardiology; plan to continue Lasix 40 mg IV BID today and reassess volume status tomorrow 11/23 and based on I/O and patient presentation, will transition to PO Lasix. Creatinine 1.92 this AM; baseline 1.2-3 at times Continue to avoid further nephrotoxic agents. All questions answered to patient. Review of Systems Review of Systems: Neuro: (-) Falls, trauma, slurred speech HEENT: (-) SELF, dizziness, dysphagia, visual or auditory changes CV: (-) CP, palpitations, swelling Resp: (+) SOB GI: (-) appetite changes, N/V/D, bowel changes : (-) urinary changes Skin: (-) rashes Psych: (-) anxiety, depression Physical Exam Physical Exam: Neuro: AAOx4, PERRLA, no aphagia, memory changes, CNII-XII grossly intact HEENT: head normocephalic, moist mucus membranes CV: S1/S2, (-) M/G/R, (-) edema, cap refill < 3 seconds Resp: Lung crackles posterior bases GI: Abdomen S/NT/ND, Ax4 bowel sounds, (-) CVA tenderness Musculoskeletal: 5/5 B/L UE strength, 5/5 B/L LE strength. Skin: (-) rashes , (-) erythema. Psych: euthymic mood Results & Data Results & Data Vital Signs (Past 12 Hours) Vital Signs Temp Pulse Pulse Resp BP Pulse Ox O2 Del Method 11/23/23 07:32 36.5 C 62 17 143/77 H 94 High Flow Nasal Cannula 11/23/23 02:43 36.6 C 61 18 152/73 H 92 Nasal Cannula 11/22/23 23:35 65 24 96 11/22/23 22:14 59 L 11/22/23 22:12 36.8 C 61 18 146/74 H 93 Nasal Cannula O2 Flow Rate FiO2 11/23/23 07:32 11/23/23 02:43 5 11/22/23 23:35 50 11/22/23 22:14 11/22/23 22:12 5 Laboratory Results Short CBC 11/23/23 Range/Units 05:41 WBC 6.72 (4.8-10.8) K/ul Hgb 9.5 L (12.0-16.0) g/dl Hct 29.1 L (37.0-47.0) % Plt Count 229 (130-400) K/uL BMP 11/23/23 05:41 Sodium 138 Potassium 4.7 Chloride 101 Carbon Dioxide 31 BUN 88 H Creatinine 1.92 H D Glucose 140 H Calcium 9.7
--- NOTE | 2023-11-23 10:39 | Pulmonology Progress Note ---
Date of Service November 23, 2023 Assessment & Plan (1) Acute on chronic heart failure with preserved ejection fraction (HFpEF): (2) RADHA (obstructive sleep apnea): (3) Acute respiratory failure with hypoxia and hypercapnia: (4) CKD (chronic kidney disease), stage III: (5) Pulmonary hypertension: Plan IMPRESSION: 63-year-old female with a significant past medical history of morbid obesity, coronary artery disease, hypertension, CHF, untreated RADHA who presents with acute hypoxic respiratory failure secondary to fluid overload. Chest x-ray 11/19/2023 personally reviewed: Portable film, bilateral costophrenic angles are blunted, increased cardiac silhouette, no clear lung infiltrate appreciated 2D echo 07/30/2023: EF 60-65%, grade 1 diastolic dysfunction, RVSP 40-50 mmHg, mild to moderate MR, moderate concentric LVH VBG 11/18/2023: 7.27/52/36 --Acute hypoxic respiratory failure Secondary to HFpEF with bilateral pleural effusion with medical noncompliance BNP 242 Respiratory bio fire negative for everything, procalcitonin negative --Bilateral pleural effusion Secondary to cardiac etiology Continue with diuresis -- Pulmonary hypertension Likely type II and possibly a component of type III On sildenafil from outpatient surface supply breathing apparatus. Unsure if the patient has primary pulmonary hypertension. Will defer the management of that to outpatient surface supply breathing apparatus/rn perinatal -- RADHA Has not received her CPAP at home Plan: In/out: -2.3L, urine output 3550 mL, -13 L since coming to the hospital Continue with diuresis to keep the patient negative balance. Incentive spirometry. Would recommend to get case management involved to see if she can get the CPAP machine for the patient at home prior to discharge Out of bed to chair No further recommendation from pulmonary perspective, will sign off Please call directly with any questions Please note the above document was generated using voice recognition software. It may contain grammatical, syntax or spelling errors.Any formal questions or concerns about the content, text or information contained within the body of this dictation should be directly addressed to the provider for clarification. Admission and Anticipated Discharge Date Admission Date: November 18, 2023 Subjective Patient seen and examined at bedside. No acute distress, notable symptoms overnight She used BiPAP overnight up until 3 AM She was saturating 91% on 5 L nasal cannula at rest She stated that she her breathing has improved compared to before She is diuresing well Fair appetite, no nausea vomiting No headache, no blurry vision Review of Systems 2 Review of Systems: All systems reviewed & are unremarkable except as noted in Subjective Physical Exam 2 Physical Exam: Constitutional: No acute distress HEENT: EOMI, PERRLA Respiratory system: Decreased air entry bilaterally, no wheeze, no rhonchi, positive crackles bilateral lower lobes CVS: S1-S2 positive, no murmurs or gallops, distant heart sounds Abdomen: Soft, nontender, nondistended, positive bowel sounds x4, obese Extremities: +2 pulses bilaterally radialis/ dorsalis pedis, no cyanosis, minimal pitting edema bilateral lower extremity Neuro: Awake alert oriented x3 Psych: Normal mood and affect G/U: Positive [place] Skin: no rashes, warm and dry Lymphatic: no cervical or axillary lymphadenopathy Results & Data Results & Data Vital Signs (Past 12 Hours) Vital Signs Temp Pulse Pulse Resp BP Pulse Ox O2 Del Method 11/23/23 07:32 36.5 C 62 17 143/77 H 94 High Flow Nasal Cannula 11/23/23 02:43 36.6 C 61 18 152/73 H 92 Nasal Cannula 11/22/23 23:35 65 24 96 O2 Flow Rate FiO2 11/23/23 07:32 11/23/23 02:43 5 11/22/23 23:35 50 Laboratory Results 11/23/23 05:41 11/23/23 05:41 PG Care Time/CCT Total # of Minutes Spent Total Time Spent with Patient: Total time spent is greater than 50% in coordination of care (as documented) at patient's floor/unit and/or counseling patient: Coding Level of Care Code 80062 SUB INP/OBS CARE 2/35MIN Diagnoses Acute on chronic heart failure with preserved ejection fraction (HFpEF) I50.33 RADHA (obstructive sleep apnea) G47.33 Acute respiratory failure with hypoxia and hypercapnia J96.01; J96.02 CKD (chronic kidney disease), stage III N18.30 Pulmonary hypertension I27.20
[2023-11-23 13:05] LABS: iSTAT Arterial Blood Gas HCO3 29 meg/L (19-24); iSTAT Arterial Blood Gas pCO2 33 mmHg (35-46); iSTAT Arterial Blood Gas pH 7.55 (7.35-7.45); iSTAT Arterial Blood Gas pO2 87 mmHg (80-95); iSTAT Carbon Dioxide 30 mmol/L (24-31); iSTAT Hematocrit 29 % (37-47); iSTAT Hemoglobin 9.9 g/dl (12.0-16.0); iSTAT Sodium 135 mmol/L (135-144)
--- NOTE | 2023-11-23 14:56 | Cardiology Progress Note ---
Date of Service November 23, 2023 Assessment & Plan (1) Acute on chronic heart failure with preserved ejection fraction (HFpEF): (2) Hyperkalemia: (3) Obesity, morbid, BMI 40.0-49.9: Plan Continue IV furosemide 60 mg twice daily Monitor I/O's, daily weight, daily metabolic panels. Continue antihypertensives including metoprolol, amlodipine, and hydralazine No JAMIE, ARB, ARNi, or mineralocorticoid receptor antagonists due to renal insufficiency and hyperkalemia. Continue aspirin and rosuvastatin. No nitrates given present use of sildenafil (? truly needed) Recommend revaluation and treatment for sleep apnea. 11/23/2023: -Patient is stable from a cardiac perspective today. -Continue Furosemide 60mg IV BID today, reassess volume status in the AM and will likely transition to Lasix in the AM -Monitor I&O, renal function and electrolytes closely. Goal serum K > 4.0 and Serum Mag> 2.0 - Avoid JAMIE-I/ARB/ARNI due to renal insufficiency. -Continue ASA and Rosuvastatin as per current regimen. -Avoid nitrates -Agree with OP sleep med work up for sleep apnea. Case has been discussed with Dr. santillan . Further recommendations regarding plan of care as per his assessment. I spent a total of 30 minutes on the date of service in preparation, delivery, documentation of the care provided to the patient excluding any time spent in the performance of separately billed services. TOÑO [facility] Cardiology [facility] Admission and Anticipated Discharge Date Admission Date: November 18, 2023 Supervising Physician Co-Signing Physician Notes I have personally performed a history and physical examination on the patient. I have reviewed the advance practitioner's documentation, and I agree with, and take responsibility for the plan of care. 63-year-old female with acute on chronic heart failure with preserved ejection fraction due to medication noncompliance. Fluid balance -2.9 L. Continue IV diuresis with Lasix. Monitor fluid balance, GFR, daily weight, and electrolytes. Creatinine trending upward today, however, remains within acceptable range. Likely transition to oral diuretic therapy in a.m. 11/24/2023. I spent a total of 25 minutes on the date of service in preparation, delivery, and documentation of the care provided to this patient, excluding any time spent in the performance of separately billed services. Subjective 11/23/23: Patient seen and examined in follow up today. Feeling well from a cardiac perspective. Denies any chest pain, pressure or palpitations. Labs, vitals, diagnostics, telemetry and documentation reviewed. Telemetry reviewed showing SR, IVCD. Rates 60-70's. Review of Systems Review of Systems: All systems reviewed & are unremarkable except as noted in HPI & below Physical Exam Constitutional: + obese; no acute distress and not ill a ppearing Neck: normal visual inspection and trachea midline Respiratory: normal respiratory effort; no respiratory distress, no labored breathing and no cough Auscultation: + diminished lung sounds (diminished bilateral bases) and + wheezes (scattered exp wheezes ); no crackles, no rales and no rhonchi Cardiovascular: Rate/Rhythm: regular rate and regular rhythm Heart Sounds: normal S1 and normal S2; no murmur Vessels: no JVD Extremities: no edema Skin: no rashes, warm and dry Psychiatric: A+Ox3, euthymic affect Results & Data Vital Signs (Past 12 Hours) Vital Signs Temp Pulse Resp BP Pulse Ox Pulse Ox O2 Del Method 11/23/23 14:17 Nasal Cannula 11/23/23 14:00 91 11/23/23 10:38 36.7 C 59 L 19 142/77 H 93 Nasal Cannula 11/23/23 07:32 36.5 C 62 17 143/77 H 94 Nasal Cannula O2 Del Method O2 Flow Rate 11/23/23 14:17 11/23/23 14:00 Nasal Cannula 3 11/23/23 10:38 11/23/23 07:32 Laboratory Results CBC 11/23/23 Range/Units 05:41 WBC 6.72 (4.8-10.8) K/ul RBC 3.60 L (4.20-5.40) M/uL Hgb 9.5 L (12.0-16.0) g/dl Hct 29.1 L (37.0-47.0) % Plt Count 229 (130-400) K/uL Comprehensive Metabolic Panel 11/23/23 Range/Units 05:41 Sodium 138 (136-145) mmol/L Potassium 4.7 (3.5-5.1) mmol/L Chloride 101 (98-107) mmol/L Carbon Dioxide 31 (21-32) mmol/L BUN 88 H (6-23) mg/dl Creatinine 1.92 H D (0.6-1.2) mg/dl Glucose 140 H (70-99(Fasting)) mg/dl Calcium 9.7 (8.6-10.3) mg/dl Intake and Output 11/22/23 11/23/23 11/23/23 22:59 06:59 14:59 Intake Total 200 / 1220 100 / 1220 300 / 300 Output Total 1250 / 3550 1100 / 3550 1200 / 1200 Balance -1050 / -2330 -1000 / -2330 -900 / -900 Intake: Oral 200 / 1220 100 / 1220 300 / 300 Output: Urine 1200 / 1200 Urine Amount (Catheter) 1250 / 3550 1100 / 3550 Ventura/Indwelling 1250 / 3550 1100 / 3550 Other: Weight 106.7 kg Weight Measurement Method Standing Scale
[2023-11-24 07:31] LABS: Calcium 9.9 mg/dl (8.6-10.3); Magnesium 2.2 mg/dl (1.7-2.4); Potassium 4.4 mmol/L (3.5-5.1)
[2023-11-24 07:36] LABS: BUN Creatinine Ratio 48.2 (10-20); Est GFR (Non-African American) 31.1 ml/min; Phosphorus 3.4 mg/dl (2.5-4.9)
[2023-11-24 08:10] LABS: Hematocrit (blood only) 31.2 % (37.0-47.0); Mean Corpuscular Hemoglobin 25.8 pg (25.0-34.0); Mean Corpuscular Hgb Conc 32.1 g/dL (32.0-36.0); Mean Corpuscular Volume 80.4 fL (80.0-100.0); Mean Platelet Volume 9.5 fL (9.4-12.4); Platelet Count 250 K/uL (130-400); RDW Coefficient of Variation 14.3 % (11.5-14.5); RDW Standard Deviation 41.6 fL (36.4-46.3); Red Blood Count 3.88 M/uL (4.20-5.40); White Blood Count 6.86 K/ul (4.8-10.8)
[2023-11-24] MEDS: FUROSEMIDE 40 MG/4 ML VIAL IV SCH (08:33)
--- NOTE | 2023-11-24 15:35 | Hospitalist Progress Note ---
Date of Service November 24, 2023 Assessment & Plan (1) Acute hypoxemic respiratory failure: (2) Acute on chronic heart failure with preserved ejection fraction (HFpEF): (3) CKD (chronic kidney disease), stage III: (4) Obesity, morbid, BMI 40.0-49.9: (5) Diabetes mellitus, type II: (6) Hyperkalemia: Plan 63-year-old female who has a significant past medical history of insulin- dependent T2DM, RADHA on nocturnal oxygen, pulmonary hypertension, morbid obesity, chronic diastolic heart failure, history of CVA, HTN, HLD, CKD and depression with anxiety who presents to ED secondary to shortness of breath x 4 days. Patient reported being out of home torsemide for 2 days due to pharmacy being out and couldn't get the med. Echocardiogram on 07/30/2023 revealed EF 60 to 65%, grade 1 diastolic dysfunction, left atrium moderately dilated, mild to moderate MR and elevated RVSP at 40 to 50 mmHg. Chest x-ray revealed cardiomegaly with prominence of pulmonary vasculature. Layering pleural effusions with dependent consolidation. Acute hypoxemic respiratory failure Acute on chronic heart failure with preserved ejection fraction Required BIPAP in ER on admission Still requiring HFNC, improved from 15L to 10L today Was on 2L oxygen at home per patient Lasix was reduced to daily administration given worsening ASHLY; this has resolved as outlined below Ventura catheter in place Daily weight, strict intake and output. 24 hour diuresis; today -1.675L Cardiology and pulmonary eval. appreciated Used Bipap overnight for a portion of the night. RT to continue to adjust settings Per CM patient will need PFT noted to be approved for CPAP at home. ABG and no cturnal pulse ox obtained and done Pt had a sleep study a few years ago at [facility] and per Pulm, this would still work for coverage for a CPAP machine; HIM placed to obtain records from outside hosp. Pulmonary OPT appt was previously scheduled on 11/29 Per discussion with Cards, patient was on Torsemide as outpatient; stop IV Lasix and resume outpatient Torsemide 40 mg PO QAM, Torsemide 20 mg PO QPM. Creatinine 1.92--> 1.70 after Lasix reduced to daily; lasix discontinued after discussion with Cardiology as outlined above Continue to avoid further nephrotoxic agents. All questions answered to patient; hopeful for DC tomorrow 11/24 CKD stage III, baseline creatinine 1.5-2: Cr improved to baseline 1.70; was 2.0 on admission Previously on Lokelma, this was DC'd Also previously on lisinopril and Aldactone, but this has been on hold since last admission due to renal function Lasix was reduced to daily administration given worsening ASHLY; this has resolved as outlined below Avoid nephrotoxic agents, monitor renal function closely with diuresis Hx Lung nodules Subcarinal Lymphadenopathy Recent PET scan from 11/17/23 - next appt with pulmonology on 11/23/23 as outpt IMPRESSION 1. Enlarged subcarinal lymph node with mildly hypermetabolic activity, which is nonspecific, possibly reactive. Comparison to the images from outside prior exams may be helpful. 2. Patchy consolidations and atelectasis in both lungs are improved in some regions and worsened in others. No worrisome focally increased uptake. 3. Moderate right and small left pleural effusions with activation of the accessory muscles of respiration. 4. Enlarged ovaries without increased uptake. Recommend pelvic ultrasound for further evaluation and/or comparison to outside prior exams. Insulin-dependent T2DM: Last A1c 8.6 on 09/25/2023 Lantus/NovoLog per protocol During previous admission metformin and Jardiance discontinued due to renal function CAD hx of Stent: Hypertension: HLD - on crestor Patient with elevated BPs in ED, likely in setting of overload as well as she did not take her morning medication Continue amlodipine, hydralazine and metoprolol History of CVA: MRI brain in July revealed small acute infarcts in bilateral occipital lobe concerning for embolic infarcts On ASA 325 daily Given significant fall risk and vision issues no anticoagulation recommended unless clear arrhythmias confirmed RADHA, untreated, cpap noncompliant: Pulmonary hypertension: Continue sildenafil Possible that RADHA is contributing, pt reports having been told many years ago had it but noncompliant with mask Continue BIPAP QHS inpatient. Per CM patient will need PFT noted to be approved for CPAP at home. ABG and nocturnal pulse ox obtained and done Pulmonary OPT appt was previously scheduled on 11/29. Depression with anxiety: Continue lexapro Morbid Obesity, BMI 45: Continue to encourage diet and lifestyle modifications Disposition: DVT ppx : SQ Heparin DNR/DNI PCP: Bridgette Celis Diet: Heart Healthy CHO4 controlled diet I spent a total of 52 minutes coordinating, documenting and providing care for this patient excluding time spent in performance of separately billed services Admission and Anticipated Discharge Date Admission Date: November 18, 2023 Supervising Physician Co-Signing Physician Notes Patient seen and examined Oxygen requirement down to baseline Cards paola noted Stop IV lasix and transition to po torsemide 40mg AM and 20mg PM and monitor today CM looking into possible home BIPAP Agree with findings and plans as detailed by Hannah LUNDBERG and take full responsibility Subjective Patient seen at bedside. She was sitting in her bedside chair in no apparent distress. She denies any current dyspnea and reports feeling better today. She did wear BiPAP overnight and had success with it. Her O2 has been weaned down. Crackles have improved. Review of Systems Review of Systems: Neuro: (-) Falls, trauma, slurred speech HEENT: (-) SELF, dizziness, dysphagia, visual or auditory changes CV: (-) CP, palpitations, swelling Resp: (+) SOB GI: (-) appetite changes, N/V/D, bowel changes : (-) urinary changes Skin: (-) rashes Psych: (-) anxiety, depression Physical Exam Physical Exam: Neuro: AAOx4, PERRLA, no aphagia, memory changes, CNII-XII grossly intact HEENT: head normocephalic, moist mucus membranes CV: S1/S2, (-) M/G/R, (-) edema, cap refill < 3 seconds Resp: Lung crackles posterior bases; improving GI: Abdomen S/NT/ND, Ax4 bowel sounds, (-) CVA tenderness Musculoskeletal: 5/5 B/L UE strength, 5/5 B/L LE strength. Skin: (-) rashes , (-) erythema. Psych: euthymic mood Results & Data Results & Data Vital Signs (Past 12 Hours) Vital Signs Temp Pulse Resp BP Pulse Ox O2 Del Method O2 Flow Rate 11/24/23 11:26 36.8 C 86 18 125/59 L 11/24/23 10:36 91 11/24/23 08:00 Nasal Cannula 2 11/24/23 07:52 36.7 C 63 20 135/65 98 BiPAP Laboratory Results Short CBC 11/24/23 Range/Units 06:00 WBC 6.86 (4.8-10.8) K/ul Hgb 10.0 L (12.0-16.0) g/dl Hct 31.2 L (37.0-47.0) % Plt Count 250 (130-400) K/uL BMP 11/24/23 05:55 Sodium 138 Potassium 4.4 Chloride 100 Carbon Dioxide 28 BUN 82 H Creatinine 1.70 H Glucose 118 H Calcium 9.9
--- NOTE | 2023-11-24 15:45 | Cardiology Progress Note ---
Date of Service November 24, 2023 Assessment & Plan (1) Acute on chronic heart failure with preserved ejection fraction (HFpEF): (2) Hyperkalemia: (3) Obesity, morbid, BMI 40.0-49.9: Plan Continue IV furosemide 60 mg twice daily Monitor I/O's, daily weight, daily metabolic panels. Continue antihypertensives including metoprolol, amlodipine, and hydralazine No JAMIE, ARB, ARNi, or mineralocorticoid receptor antagonists due to renal insufficiency and hyperkalemia. Continue aspirin and rosuvastatin. No nitrates given present use of sildenafil (? truly needed) Recommend revaluation and treatment for sleep apnea. 11/23/2023: -Patient is stable from a cardiac perspective today. -Continue Furosemide 60mg IV BID today, reassess volume status in the AM and will likely transition to Lasix in the AM -Monitor I&O, renal function and electrolytes closely. Goal serum K > 4.0 and Serum Mag> 2.0 - Avoid JAMIE-I/ARB/ARNI due to renal insufficiency. -Continue ASA and Rosuvastatin as per current regimen. -Avoid nitrates -Agree with OP sleep med work up for sleep apnea. 11/24/23: -Improved volume and respiratory status since admission -Transition to PO torsemide today. Discussed with hospitalist and patient. Patient reports she was taking torsemide 40 mg in AM and 20 mg in afternoon with good response, but then ran out of medication, likely causing her HF exacerbation. Will start afternoon dose today Monitor renal function and electrolytes. Avoid JAMIE/ARB given CKD RADHA work up recommended Stable cardiac symptoms Will sign off. Please contact balloon seller cardiology provider with additional questions or concerns. Case discussed with Dr. Villegas I spent a total of 45 minutes on the date of service in preparation, delivery, and documentation of the care provided to this patient, excluding any time spent in the performance of separately billed services. Liv Hood PA-C Department of Cardiology, [facility] This chart was completed in part utilizing Speech Voice Recognition Software. Grammatical errors, random word insertions, pronoun errors, and incomplete sentences are an occasional consequence of this system due to software limitations, ambient noise, and hardware issues. Any formal questions or concerns about the content, text, or information contained within the body of this dictation should be directly addressed to the provider for clarification. Admission and Anticipated Discharge Date Admission Date: November 18, 2023 Supervising Physician Co-Signing Physician Notes I have personally performed a history and physical examination on the patient. I have reviewed the advance practitioner's documentation, and I agree with, and take responsibility for the plan of care. 63-year-old female with acute on chronic heart failure with preserved ejection fraction due to medication noncompliance. Clinically improved. Transition to oral diuretic therapy. Monitor fluid balance, GFR, daily weight, and electrolytes while hospitalized. Cardiology will sign off. I spent a total of 25 minutes on the date of service in preparation, delivery, and documentation of the care provided to this patient, excluding any time spent in the performance of separately billed services. Subjective Patient resting in bed comfortably. Finished with PT/OT earlier and did well. Reports her SOB is greatly improved. Edema also improving. No chest pain reported. Tolerating medications. Review of Systems Review of Systems: All systems reviewed & are unremarkable except as noted in HPI & below Physical Exam Constitutional: + obese; no acute distress and not ill a ppearing Neck: normal visual inspection and trachea midline Respiratory: no cough Auscultation: + diminished lung sounds (diminished bilateral bases); no crackles, no rales and no rhonchi Cardiovascular: Rate/Rhythm: regular rate and regular rhythm Heart Sounds: normal S1 and normal S2; no murmur Vessels: no JVD Extremities: + edema (Trace pretibial edema) Gastrointestinal (Abdomen): normal bowel sounds, soft, nontender, no hepatosplenomegaly Skin: no rashes, warm and dry Neurologic: PERRL, EOMI, accommodation nl, no face palsy, no dysarthria Psychiatric: A+Ox3, euthymic affect Results & Data Vital Signs (Past 12 Hours) Vital Signs Temp Pulse Resp BP Pulse Ox O2 Del Method O2 Flow Rate 11/24/23 11:26 36.8 C 86 18 125/59 L 11/24/23 10:36 91 11/24/23 08:00 Nasal Cannula 2 11/24/23 07:52 36.7 C 63 20 135/65 98 BiPAP Laboratory Results CBC 11/24/23 Range/Units 06:00 WBC 6.86 (4.8-10.8) K/ul RBC 3.88 L (4.20-5.40) M/uL Hgb 10.0 L (12.0-16.0) g/dl Hct 31.2 L (37.0-47.0) % Plt Count 250 (130-400) K/uL Comprehensive Metabolic Panel 11/24/23 Range/Units 05:55 Sodium 138 (136-145) mmol/L Potassium 4.4 (3.5-5.1) mmol/L Chloride 100 (98-107) mmol/L Carbon Dioxide 28 (21-32) mmol/L BUN 82 H (6-23) mg/dl Creatinine 1.70 H (0.6-1.2) mg/dl Glucose 118 H (70-99(Fasting)) mg/dl Calcium 9.9 (8.6-10.3) mg/dl Intake and Output 11/24/23 11/24/23 11/24/23 06:59 14:59 22:59 Intake Total 100 / 600 Output Total 500 / 2275 500 / 500 Balance -400 / -1675 -500 / -500 Intake: Oral 100 / 600 Output: Urine Amount (Catheter) 500 / 1075 500 / 500 Ventura/Indwelling 500 / 1075 500 / 500 Other: Weight 106 kg Weight Measurement Method Standing Scale Diagnostic Findings Telemetry reviewed: NSR in the 50-70's Medications Administered Current Inpatient Medications Acetaminophen (Acetaminophen 325 Mg Tab) 650 mg PO Q4H PRN PRN Reason: Pain or Fever Stop: 12/18/23 14:10 Amlodipine Besylate (Amlodipine Besylate 5 Mg Tab) 10 mg PO DAILY ZOE Stop: 12/18/23 14:29 Last Admin: 11/24/23 08:34 Dose: 10 mg Aspirin (Aspirin 325 Mg Ectab) 325 mg PO DAILY ZOE Stop: 12/18/23 14:29 Last Admin: 11/24/23 08:33 Dose: 325 mg Dextrose (Dextrose 50% 50 Ml Syringe) 25 - 50 ml IV UD PRN; Protocol PRN Reason: Hypoglycemia Protocol Stop: 12/18/23 14:10 Escitalopram Oxalate (Escitalopram Oxalate 20 Mg Tab) 20 mg PO DAILY ZOE Stop: 12/18/23 14:29 Last Admin: 11/24/23 08:34 Dose: 20 mg Glucagon (Glucagon For Inj 1 Mg Vial) 1 mg SQ UD PRN; Protocol PRN Reason: Hypoglycemia Protocol Stop: 12/18/23 14:10 Glucose (Glucose 40% Gel 15 Gm Tube) 15 - 30 gm PO UD PRN; Protocol PRN Reason: Hypoglycemia Protocol Stop: 12/18/23 14:10 Glucose (Glucose 10 Tab/Tube) 4 - 8 tab PO UD PRN; Protocol PRN Reason: Hypoglycemia Treatment Stop: 12/18/23 14:10 Heparin Sodium (Porcine) (Heparin Sod 5,000 Unit/0.5 Ml Vial) 5,000 units SQ Q8 ZOE Stop: 12/18/23 14:29 Last Admin: 11/24/23 14:01 Dose: 5,000 units Hydralazine HCl (Hydralazine Tab 50 Mg Tab) 100 mg PO TID [facility] Stop: 12/18/23 14:29 Last Admin: 11/24/23 14:02 Dose: 100 mg Promethazine HCl 6.25 mg/ (Sodium Chloride) 50.25 mls @ 201 mls/hr IV Q6H PRN PRN Reason: Nausea And Vomiting Stop: 12/18/23 20:13 Insulin Aspart (Insulin Aspart Per Unit Charge) 0 units SC ACHS [facility] Stop: 12/18/23 14:29 Last Admin: 11/24/23 14:00 Dose: 4 units Insulin Glargine (Lantus Per Unit Charge) 0 units SQ QAM [facility] Stop: 12/19/23 08:59 Last Admin: 11/24/23 08:32 Dose: 10 units Metoprolol Succinate (Metoprolol Succ 50mg Ext Rel Tab) 100 mg PO QAM [facility] Stop: 12/18/23 14:10 Last Admin: 11/24/23 08:34 Dose: 100 mg Miscellaneous (Carbohydrates For Hypoglycemia ) 15 - 30 gm PO UD PRN PRN Reason: Hypoglycemia Protocol Stop: 12/18/23 14:10 Polyethylene Glycol (Polyethylene (Miralax) 17 Gm Pack) 17 gm PO DAILY [facility] Stop: 12/21/23 12:44 Last Admin: 11/24/23 08:35 Dose: Not Given Rosuvastatin Calcium (Rosuvastatin Calcium 20 Mg Tab) 20 mg PO QAM [facility] Stop: 12/18/23 14:29 Last Admin: 11/24/23 08:33 Dose: 20 mg Senna/Docusate Sodium (Docusate Sodium/Senna 50/8.6mg Tab) 1 tab PO QAM [facility] Stop: 12/21/23 12:44 Last Admin: 11/24/23 08:34 Dose: 1 tab Sildenafil Citrate (Sildenafil Citrate 20 Mg Tablet) 20 mg PO TID ZOE Stop: 12/18/23 14:29 Last Admin: 11/24/23 14:02 Dose: 20 mg
[2023-11-24] MEDS: MICONAZOLE NITRATE POWDER 85 GM EXT SCH (22:40)
[2023-11-25 06:44] LABS: Hematocrit (blood only) 30.2 % (37.0-47.0); Hemoglobin 9.9 g/dl (12.0-16.0); Mean Corpuscular Hemoglobin 26.4 pg (25.0-34.0); Mean Corpuscular Hgb Conc 32.8 g/dL (32.0-36.0); Mean Corpuscular Volume 80.5 fL (80.0-100.0); Mean Platelet Volume 9.5 fL (9.4-12.4); Platelet Count 228 K/uL (130-400); RDW Coefficient of Variation 14.2 % (11.5-14.5); RDW Standard Deviation 41.9 fL (36.4-46.3); Red Blood Count 3.75 M/uL (4.20-5.40); White Blood Count 6.44 K/ul (4.8-10.8)
[2023-11-25 07:00] LABS: BUN Creatinine Ratio 50.3 (10-20); Calcium 9.8 mg/dl (8.6-10.3); Creatinine Clr Calc Pharmacy 40.9 ml/min; Est GFR (African American) 40.9 ml/min; Est GFR (Non-African American) 35.3 ml/min; Magnesium 2.4 mg/dl (1.7-2.4); Phosphorus 3.6 mg/dl (2.5-4.9); Potassium 4.5 mmol/L (3.5-5.1)
[2023-11-25] MEDS: TORSEMIDE 20 MG TAB PO SCH ×2 (09:04→17:40)
--- NOTE | 2023-11-25 14:14 | Hospitalist Progress Note ---
Date of Service November 25, 2023 Assessment & Plan (1) Acute hypoxemic respiratory failure: (2) Acute on chronic heart failure with preserved ejection fraction (HFpEF): (3) CKD (chronic kidney disease), stage III: (4) Obesity, morbid, BMI 40.0-49.9: (5) Diabetes mellitus, type II: (6) Hyperkalemia: Plan 63-year-old female who has a significant past medical history of insulin- dependent T2DM, RADHA on nocturnal oxygen, pulmonary hypertension, morbid obesity, chronic diastolic heart failure, history of CVA, HTN, HLD, CKD and depression with anxiety who presents to ED secondary to shortness of breath x 4 days. Patient reported being out of home torsemide for 2 days due to pharmacy being out and couldn't get the med. Echocardiogram on 07/30/2023 revealed EF 60 to 65%, grade 1 diastolic dysfunction, left atrium moderately dilated, mild to moderate MR and elevated RVSP at 40 to 50 mmHg. Chest x-ray revealed cardiomegaly with prominence of pulmonary vasculature. Layering pleural effusions with dependent consolidation. Acute hypoxemic respiratory failure Acute on chronic heart failure with preserved ejection fraction Required BIPAP and HFNC in ED; this has resolved to baseline of 2LNC [place] catheter in place Daily weight, strict intake and output. 24 hour diuresis; today -2.0L Cardiology and pulmonary eval. appreciated ABG/nocturnal O2 obtained. Did not meet criteria for CPAP. Pt had a sleep study a few years ago at [facility] and per Pulm, this would still work for coverage for a CPAP machine; HIM placed to obtain records from outside hosp. Apparently she has refused CPAP previously Pulmonary OPT appt was previously scheduled on 11/29 Outpatient Torsemide resumed on 11/23 in the evening. Torsemide 40 mg PO QAM, Torsemide 20 mg PO QPM. Would benefit from outpatient sleep study on discharge. CKD stage III, baseline creatinine 1.5-2: Cr improved to baseline 1.70; was 2.0 on admission Previously on Lokelma, this was DC'd Also previously on lisinopril and Aldactone, but this has been on hold since last admission due to renal function Lasix was reduced to daily administration given worsening ASHLY; this has resolved as outlined below Creatinine improved to baseline Continue to avoid further nephrotoxic agents. Hx Lung nodules Subcarinal Lymphadenopathy Recent PET scan from 11/17/23 - next appt with pulmonology on 11/23/23 as outpt IMPRESSION 1. Enlarged subcarinal lymph node with mildly hypermetabolic activity, which is nonspecific, possibly reactive. Comparison to the images from outside prior exams may be helpful. 2. Patchy consolidations and atelectasis in both lungs are improved in some regions and worsened in others. No worrisome focally increased uptake. 3. Moderate right and small left pleural effusions with activation of the accessory muscles of respiration. 4. Enlarged ovaries without increased uptake. Recommend pelvic ultrasound for further evaluation and/or comparison to outside prior exams. Insulin-dependent T2DM: Last A1c 8.6 on 09/25/2023 Lantus/NovoLog per protocol During previous admission metformin and Jardiance discontinued due to renal function CAD hx of Stent: Hypertension: HLD - on crestor Patient with elevated BPs in ED, likely in setting of overload as well as she did not take her morning medication Continue amlodipine, hydralazine and metoprolol History of CVA: MRI brain in July revealed small acute infarcts in bilateral occipital lobe concerning for embolic infarcts On ASA 325 daily Given significant fall risk and vision issues no anticoagulation recommended unless clear arrhythmias confirmed RADHA, untreated, cpap noncompliant: Pulmonary hypertension: Continue sildenafil Possible that RADHA is contributing, pt reports having been told many years ago had it but noncompliant with mask Continue BIPAP QHS inpatient. Per CM patient will need PFT noted to be approved for CPAP at home. ABG and nocturnal pulse ox obtained and done Pulmonary OPT appt was previously scheduled on 11/29. Depression with anxiety: Continue lexapro Morbid Obesity, BMI 45: Continue to encourage diet and lifestyle modifications Disposition: DVT ppx : SQ Heparin DNR/DNI PCP: Bridgette Celis Diet: Heart Healthy CHO4 controlled diet I spent a total of 52 minutes coordinating, documenting, and providing care for this patient excluding time spent in the performance of separately billed services. All of the aforementioned completed while collaborating with the assigned attending physician for a full treatment plan. Please see their addendum for further details. Admission and Anticipated Discharge Date Admission Date: November 18, 2023 Subjective Patient seen at bedside. She was sitting in her bedside chair in no apparent distress. She denies any current dyspnea and reports feeling better today. She did wear BiPAP overnight and had success with it. Her O2 has been weaned down and is now on 2LNC Crackles have improved. Denies fever, chills, chest pain, palpitations, N/V/D She appears back to baseline Review of Systems Review of Systems: Neuro: (-) Falls, trauma, slurred speech HEENT: (-) SELF, dizziness, dysphagia, visual or auditory changes CV: (-) CP, palpitations, swelling Resp: (+) SOB GI: (-) appetite changes, N/V/D, bowel changes : (-) urinary changes Skin: (-) rashes Psych: (-) anxiety, depression Physical Exam Physical Exam: Neuro: AAOx4, PERRLA, no aphagia, memory changes, CNII-XII grossly intact HEENT: head normocephalic, moist mucus membranes CV: S1/S2, (-) M/G/R, (-) edema, cap refill < 3 seconds Resp: Lung crackles posterior bases; improving GI: Abdomen S/NT/ND, Ax4 bowel sounds, (-) CVA tenderness Musculoskeletal: 5/5 B/L UE strength, 5/5 B/L LE strength. Skin: (-) rashes , (-) erythema. Psych: euthymic mood Results & Data Results & Data Vital Signs (Past 12 Hours) Vital Signs Temp Pulse Resp BP Pulse Ox O2 Del Method O2 Flow Rate 11/25/23 11:30 36.7 C 78 22 150/81 H 97 BiPAP 11/25/23 11:09 Nasal Cannula 2 11/25/23 08:00 36.9 C 61 20 144/63 H 96 BiPAP 11/25/23 03:02 37.0 C 55 L 19 151/77 H 94 BiPAP Laboratory Results Short CBC 11/25/23 Range/Units 05:25 WBC 6.44 (4.8-10.8) K/ul Hgb 9.9 L (12.0-16.0) g/dl Hct 30.2 L (37.0-47.0) % Plt Count 228 (130-400) K/uL BMP 11/25/23 05:25 Sodium 137 Potassium 4.5 Chloride 101 Carbon Dioxide 30 BUN 77 H Creatinine 1.53 H Glucose 105 H Calcium 9.8
[2023-11-26 07:01] LABS: Hematocrit (blood only) 30.2 % (37.0-47.0); Hemoglobin 9.7 g/dl (12.0-16.0); Mean Corpuscular Hemoglobin 25.9 pg (25.0-34.0); Mean Corpuscular Hgb Conc 32.1 g/dL (32.0-36.0); Mean Corpuscular Volume 80.7 fL (80.0-100.0); Mean Platelet Volume 9.8 fL (9.4-12.4); Platelet Count 223 K/uL (130-400); RDW Coefficient of Variation 14.3 % (11.5-14.5); RDW Standard Deviation 42.3 fL (36.4-46.3); Red Blood Count 3.74 M/uL (4.20-5.40); White Blood Count 7.73 K/ul (4.8-10.8)
[2023-11-26 07:55] VITALS: RESP 18
[2023-11-26 11:29] VITALS: BP 142/76; TEMP 97.9; O2SAT 92
--- NOTE | 2023-11-26 12:01 | Discharge Summary ---
Discharge Summary Date of Service November 26, 2023 Principal Dx & Hospital Course #1 = Principal Diagnosis (1) Acute hypoxemic respiratory failure: (2) Acute on chronic heart failure with preserved ejection fraction (HFpEF): (3) CKD (chronic kidney disease), stage III: (4) Obesity, morbid, BMI 40.0-49.9: (5) Diabetes mellitus, type II: (6) Hyperkalemia: Plan 63-year-old female who has a significant past medical history of insulin- dependent T2DM, RADHA on nocturnal oxygen, pulmonary hypertension, morbid obesity, chronic diastolic heart failure, history of CVA, HTN, HLD, CKD and depression with anxiety who presents to ED secondary to shortness of breath x 4 days. Patient reported being out of home torsemide for 2 days due to pharmacy being out and couldn't get the med. Echocardiogram on 07/30/2023 revealed EF 60 to 65%, grade 1 diastolic dysfunction, left atrium moderately dilated, mild to moderate MR and elevated RVSP at 40 to 50 mmHg. Chest x-ray revealed cardiomegaly with prominence of pulmonary vasculature. Layering pleural effusions with dependent consolidation. Acute hypoxemic respiratory failure Acute on chronic heart failure with preserved ejection fraction Required BIPAP and HFNC in ED; this has resolved to baseline of 2LNC S/P IV Lasix now transitioned back to home torsemide Cardiology and pulmonary eval. appreciated ABG/nocturnal O2 obtained. Did not meet criteria for CPAP. Pt had a sleep study a few years ago at [facility] and per Pul, this would still work for coverage for a CPAP machine; HIM placed to obtain records from outside hosp. Apparently she has refused CPAP previously Pulmonary OPT appt was previously scheduled on 11/29. Encouraged pt to discuss RADHA testing as outpt Outpatient Torsemide resumed on 11/23 in the evening. Torsemide 40 mg PO QAM, Torsemide 20 mg PO QPM. Would benefit from outpatient sleep study on discharge. CKD stage III, baseline creatinine 1.5-2: Cr improved to baseline 1.70; was 2.0 on admission Previously on Lokelma, this was DC'd Also previously on lisinopril and Aldactone, but this has been on hold since last admission due to renal function Lasix was reduced to daily administration given worsening ASHLY; this has resolved as outlined below Creatinine improved to baseline Continue to avoid further nephrotoxic agents. Hx Lung nodules Subcarinal Lymphadenopathy Recent PET scan from 11/17/23 - next appt with pulmonology on 11/23/23 as outpt IMPRESSION 1. Enlarged subcarinal lymph node with mildly hypermetabolic activity, which is nonspecific, possibly reactive. Comparison to the images from outside prior exams may be helpful. 2. Patchy consolidations and atelectasis in both lungs are improved in some regions and worsened in others. No worrisome focally increased uptake. 3. Moderate right and small left pleural effusions with activation of the accessory muscles of respiration. 4. Enlarged ovaries without increased uptake. Recommend pelvic ultrasound for further evaluation and/or comparison to outside prior exams. Insulin-dependent T2DM: Last A1c 8.6 on 09/25/2023 resume home lantus encourage pt to discuss with PCP regarding additional options for better glycemic control and possible MTM pharmacy CAD hx of Stent: Hypertension: HLD - on crestor continue home meds History of CVA: MRI brain in July revealed small acute infarcts in bilateral occipital lobe concerning for embolic infarcts On ASA 325 daily Given significant fall risk and vision issues no anticoagulation recommended unless clear arrhythmias confirmed RADHA, untreated, cpap noncompliant: Pulmonary hypertension: Continue sildenafil Possible that RADHA is contributing, pt reports having been told many years ago had it but noncompliant with mask Continue BIPAP QHS inpatient. Per CM patient will need PFT noted to be approved for CPAP at home. ABG and nocturnal pulse ox obtained and done Pulmonary OPT appt was previously scheduled on 11/29. Depression with anxiety: Continue lexapro Morbid Obesity, BMI 45: Continue to encourage diet and lifestyle modifications Disposition: DVT ppx : SQ Heparin DNR/DNI PCP: Bridgette Celis Diet: Heart Healthy CHO4 controlled diet I spent a total of 52 minutes coordinating, documenting, and providing care for this patient excluding time spent in the performance of separately billed services. All of the aforementioned completed while collaborating with the assigned attending physician for a full treatment plan. Please see their addendum for further details. Notes For Next Care Provider Pt admitted for decompensated CHF in setting of running out of her torsemide. Initially required Bipap and was weaned back to home oxygen requirement. She needs outpatient evaluation by Sleep medicine for RADHA. She was utilizing Bipap here at HS in the evening. A1C was 8.6 in hospital. Medication Changes From Visit Continue home regimen Admission HPI Per Admitting Provider This is a 63-year-old female who has a significant past medical history of insulin-dependent T2DM, RADHA on nocturnal oxygen, pulmonary hypertension, morbid obesity, chronic diastolic heart failure, history of CVA, HTN, HLD, CKD and depression with anxiety who presents to ED secondary to shortness of breath x 4 days. She states approximately 4 days ago she noticed an acute onset of shortness of breath that is progressively worsened over the last few days. She felt it came on abruptly. She further complained of orthopnea. She feels her weight has been baseline around 240 to 245 pounds. She denies any significant increase in edema to her lower extremities. She states home nursing measures her legs on a regular basis and feels they are at baseline. She does note that her pharmacy has been out of her torsemide and she had missed 2 days of this medication. She was able to take a dose last evening and did not know any difference in her symptoms. She denies any fever, chills, sweats, lightheadedness, dizziness, chest pain, hemoptysis, vomiting or abdominal pain. She does have a wet productive cough, but due to visual acuity at baseline she is on sure nature of sputum. She does appreciate a cough chronically and does n ot feel this is changed. She denies any sick contacts. Of significance patient was hospitalized in September from September 23 to September 28 secondary to acute hypoxic respiratory failure. Initially there was concern about a pneumonic component and she was started on IV antibiotics. This admission required BiPAP initially as well. She was seen and evaluated by pulmonology who felt symptoms are more so related to pulmonary edema and CHF as opposed to pneumonia. Her hospitalization was complicated by acute on chronic CKD in which nephrology was following and assisting with diuresis. At discharge she was placed on torsemide 40 mg in the morning and 20 mg in the evening. It was also recommended that she discontinue her metformin, Jardiance, lisinopril and Aldactone for the time being due to renal function. Baseline creatinine is 1.5-2. In ED patient was hypoxic upon arrival. Initially requiring nonrebreather which eventual transition to BiPAP due to increased work of breathing. Her ABG pH was 7.27. Admission Exam Per Admitting Provider Constitutional: WD/WN, vitals as above, NAD, sitting up in bed, pleasant, conversing easily Head: Normocephalic, Atraumatic Eyes: PERRL, conjunctivae normal, anicteric sclerae ENMT: external ear and nose normal, oropharynx normal Neck: trachea midline, no thyromegaly normal visual inspection Respiratory: normal respiratory effort, lungs clear to auscultation, no wheeze, rales, rhonchi. Normal insp/exp effort, no accessory muscle use Cardiovascular: RRR, no murmur, no edema Vessels: no JVD or carotid bruit Chest: normal inspection of chest Abdomen: normal bowel sounds, soft, nontender, no hepatosplenomegaly Musculoskeletal: no cyanosis or clubbing, extremities motor strength 5/5 Skin: no rashes, warm and dry normal turgor Neurologic: PERRL, EOMI, accommodation nl, no face palsy, no dysarthria CN's II-XI intact bilaterally and moves all extremities Psychiatric: A+Ox3, euthymic affect Lymphatic: no cervical or axillary lymphadenopathy : deferred Discharge Exam Gen: Chronically ill appearing, F, sitting up in bed, NAD, A&O x3 HEENT: Normocephalic, atraumatic, conjunctivae moist, sclerae anicteric, mucous membranes moist. Lung: Clear to Auscultation bilaterally, no wheezes/rales/rhonchi decreased BS at bases Heart: Regular rate, regular rhythm, no murmurs, rubs, or gallops Abdomen: Soft, NT, ND +BS x 4 Extremities: No edema Skin: Warm, no rash, negative turgor. Updated Medication List Medication Instructions Recorded Confirmed Type amlodipine 10 mg tablet 10 mg PO DAILY 07/29/23 11/18/23 History escitalopram oxalate 20 mg tablet 20 mg PO DAILY 07/29/23 11/18/23 History hydralazine 100 mg tablet 100 mg PO TID 07/29/23 11/18/23 History metoprolol succinate 100 mg 100 mg PO QAM 07/29/23 11/18/23 History tablet,extended release 24 hr sildenafil (pulm.hypertension) 20 20 mg PO TID 07/29/23 11/18/23 History mg tablet rosuvastatin 20 mg tablet (Crestor) 20 mg PO QAM #0 tabs 08/07/23 11/18/23 Rx insulin glargine 100 unit/mL (3 25 unit subcut QAM 09/24/23 11/18/23 History mL) subcutaneous pen (Lantus Solostar U-100 Insulin) aspirin 325 mg tablet 325 mg PO DAILY 09/25/23 11/18/23 History miconazole nitrate 2 % topical 1 applic EXT BID #85 grams 11/26/23 Rx powder (Desenex) torsemide 20 mg tablet See Rx Instructions .Route 11/26/23 Rx .COMPLEX #90 tabs Hospital Stay Data Consultations 11/18/23 06:36 ED Decision to Admit Stat 11/18/23 08:39 Consult Cardiology Routine 11/20/23 11:17 Consult Pulmonology Routine 11/24/23 15:08 HIM [Consult Health Information Management] Routine Diagnostic Imagining Performed Chest X-Ray 11/18/23 04:52 SINGLE VIEW CHEST CLINICAL HISTORY: Dyspnea FINDINGS: An AP, portable, upright chest radiograph is compared to study dated 09/24/2023 and correlated with chest CT dated 09/25/2023. The heart is enlarged. There is prominence of the pulmonary vasculature. There are layering pleural effusions with dense bibasilar consolidation. No pneumothorax is seen. The skeletal structures are osteopenic. The bony thorax is grossly intact. IMPRESSION: 1. Cardiomegaly with prominence of the pulmonary vasculature. Correlate clinically for evidence of fluid overload/congestive change. 2. Layering pleural effusions with dependent consolidation. Correlate clinically for evidence of pneumonia/aspiration pneumonitis. Radiographic follow-up to resolution is recommended. ACT 112: Negative or not required by law. Electronically signed by: Tomi Miller M.D. 11/18/2023 7:08 AM Chest X-Ray 11/19/23 14:09 XR chest 1V portable HISTORY: 63 years-old Female New O2 requirement acute hypoxia COMPARISON: 11/18/2023 TECHNIQUE: AP view of the chest FINDINGS: Cardiac silhouette is enlarged. Pulmonary vascular congestion with interstitial coarsening. No pneumothorax. Layering pleural effusions with bibasilar consolidation, similar to prior. Bones appear intact. IMPRESSION: 1. Cardiomegaly with persistent pulmonary edema. 2. Unchanged layering pleural effusions with bibasilar consolidation suggestive of atelectasis versus pneumonia. ACT 112: Negative or not required by law. The above report was generated using voice recognition software. It may contain grammatical, syntax or spelling errors. Electronically signed by: Steve Medley M.D. 11/19/2023 2:43 PM Chest X-Ray 11/22/23 07:00 SINGLE VIEW CHEST CLINICAL HISTORY: Follow-up congestive failure FINDINGS: An AP, portable, upright chest radiograph is compared to study dated 11/19/2023 and correlated with chest CT dated 09/25/2023. The heart is enlarged. Pulmonary vascular congestion persists. There are layering pleural effusions with bibasilar consolidation. No pneumothorax is seen. The skeletal structures are osteopenic. The bony thorax is grossly intact. IMPRESSION: 1. Cardiomegaly with evidence of congestive failure. This is similar to previous. 2. Layering pleural effusions with dependent consolidation. This is also unchanged. Follow-up to resolution is recommended. ACT 112: Negative or not required by law. Electronically signed by: Tomi Miller M.D. 11/22/2023 8:16 AM Pending Results Patient Have Any Pending Studies at Discharge: No Discharge Instructions Given to Patient (Per Discharging Provider) MEDICATION CHANGES: Continue Torsemide, 40mg in the morning and 20mg in the afternoon. Continue all home medications as prescribed SUMMARY OF TEST RESULTS: You were admitted to hospital for acute on chronic heart failure. You were treated with IV Diuretics and eventually returned to your home oxygen requirement. PENDING TEST RESULTS: None RECOMMENDATIONS FOR FOLLOW-UP: Your current oxygen requirement is 2 L with rest and 4 L with Activity Please follow up with Primary Care Provider as scheduled. Please follow up with your Machine Repairer as scheduled. Please follow up with Storm Chaser as scheduled. When you follow up with your administrative assistant data entry you need to address obstructive sleep apnea. You need further work up for this as outpatient. Continue all other meds as prescribed. Please follow detailed Congestive Heart Failure instructions as below. It is recommended you follow a 1,500ml Fluid restriction to help prevent weight gain and fluid overload. OTHER INSTRUCTIONS: Call 911 and go to the Emergency Room if: * You have tightness or pain in your chest that does not go away with rest or Nitroglycerin * You are very short of breath even with rest Call your doctor if any of the following symptoms or problems start or get worse: * Shortness of breath or difficulty breathing * Wake up at night short of breath * Chest pain * Cough * Swelling of your hands, fee, or legs * More fatigued or tired with your normal activity * Palpitations - sudden fast heart beats WEIGHT * Weigh yourself every morning after using the bathroom. * Use the same scale. * Wear the same amount of clothing. * Write your weight down on your chart. * Call your doctor if you gain more than 2-3 pounds in 1-2 days. MEDICATIONS * Use this discharge instruction sheet for instructions. * Take your medications at the time your doctor ordered. * Do not skip a dose of your medicines. * If you miss a dose of medicine, take as soon as possible, but DO NOT DOUBLE A DOSE. * Read your medicine information when you get home. * Know all of the side effects of your medicine. * Call your doctor's office if you have any side effects. * Be sure all of your doctors know what medicine and herbs you take (including cold, flu, and herbal medicine). * Pain Medicine: If you do not get relief from your pain, please call your doctor for help. Take the following with you to your follow-up doctor appointments: * Weight Chart * Medication List * List of questions Do not drink excessive alcohol, beer or wine. Total Time Total Time Spent Total Time Spent (In Minutes): 45 minutes Home Health Attestation I certify that this patient is under my care and that I, or a physicians procurement assistant working with me, had a face to-face encounter that meets the home health [id number] encounter requirements with this patient. The encounter with the patient was in whole, or in part, for the following medical condition, which is the primary reason for home health care (list medical condition): CHF I certify that, based on my findings, the following services are medically necessary home health services: My clinical findings support the need for the above services because: Skilled Nsg Assessment Further, I certify that my clinical findings support that this patient is homebound (i.e. absences from home require considerable and taxing effort and are for medical reasons or evangelical services or infrequently or of short duration when for other reasons) because: Supportive Aid - Walker Transportation Assistance/Unable to Leave Home Unassisted Certification for Home Health Services: Based on the above findings, I certify that this patient is confined to the home and needs intermittent half-way care, physical therapy and/or speech therapy or continues to need occupational therapy. The patient is under my care, and I have initiated the establishment of the plan of care. This patient will be followed by a physician who will periodically review the plan of care.
[2023-11-26 13:11] VITALS: PULSE 61
== END 2023-11-26 16:10 | disposition home health service (06) | DRG 291 ==
LOC: ED 04:34 → SUATTDRO 07:46 → EDINP 07:46 → 2S 14:14

== ENCOUNTER 2024-02-06 10:49 | Inpatient (IN) ==
--- OUTSIDE RECORDS SUMMARY | 2024-02-06 10:56 | External Medical Summary ---
Author Name Unknown Address Unknown Organization [id number]:[facility] [place] - [address] [place] [address] Laboratory Report Ordering Provider Test Date Status RODOLFO VANESSA 12/29/2023 16:48:42 Final Observation Date Value Abnormality Reference (Units ) Status HbA1C 12/29/2023 16:48:42 8.1 Above high normal 4. 0-5.6 (%) Final The use of HbA1c to monitor glycemic status is based on normal hemoglobin and HbA composition. This test should not be used in patients with abnormal hemoglobin that affects the half life of the red blood cell or the in vivo glycation rates. Glucose, estimated average 12/29/2023 16:48:42 186 Above high normal <126 (mg/dL) Milad anne Performing Location [facility] [place] - [address] [place] [place] [place] [address]
--- OUTSIDE RECORDS SUMMARY | 2024-02-06 10:56 | External Medical Summary | Summary of Care ---
Author Name Unknown Organization [facility] Address [address] [place] [address] Phone [phone] Care Team Providers Care Tire Room Supervisor Name Role Phone Bridgette Celis MD Primary Care Provider + Reason for Visit * Reason Onset Date Comments Test Results 10/23/202310/22, 11/03 Encounter Details Date Type Department Care Team (Late st Contact Info) Description 10/23/2023 Telephone General Internal Medicine [facility] [address] [facility] [place] [address] Bridgette Celis MD [address] [place] [address] Test Results (10/22, 11/03) Allergies No known active allergiesdocumented as of this encounter (statuses as of 01/08/2024) Medications Medication Sig Dispensed Refills Start Date End Date Status OneTouch Delica Plus [id number] Use as directed. 400 Each 3 10/01/2023 Active OneTouch Ultra In Vitro Strip (Glucose Blood)Indications: Type 2 diabetes mellitus with hemoglobin A1c goal of less than 7.5% ([facility]) Use to check blood sugar up to 4 times daily 400 Strip 3 10/13/2023 Active Spironolactone 25 MG Oral Tablet (Aldactone)Indicat ions:Chronic diastolic heart failure (HCC) Take 1 Tablet by mouth in the morning. 01/17/2023 4 Discontinued(Ref ill) Torsemide 20 MG Oral Tablet (Demadex)Indicatio ns:Chronic diastolic heart failure (HCC) Take 2 Tablets by mouth in the morning and 2 Tablets before bedtime. 40 in the AM and 20 in the PM. 01/17/2023 4 Discontinued Empagliflozin 25 MG Oral Tablet (Jardiance)Indicat ions:Type 2 diabetes mellitus with hemoglobin A1c goal of less than 7.5% (HCC) Take 1 Tablet by mouth in the morning. 30 Tablet 11 03/16/2023 4 Discontinued Metoprolol Succinate ER 100 MG Oral Tablet Extended Release 24 Hour (toPROL XL)Indications:Chr onic diastolic heart failure (HCC) Take 1 Tablet by mouth in the morning. 30 Tablet 11 03/16/2023 4 Discontinued(Ref ill) metFORMIN HCl ER 500 MG Oral Tablet Extended Release 24 Hour (Glucophage XR)Indications:Unc ontrolled type 2 diabetes mellitus with hyperglycemia (HCC) 1 daily with dinner x 1 wk, then inc to 2 daily--st 03/23/2023 60 Tablet 2 03/23/2023 4 Discontinued Lisinopril 2.5 MG Oral Tablet (Prinivil)Indicati ons:Chronic diastolic heart failure (HCC),Coronary artery disease involving [place] coronary artery of [place] heart without angina pectoris,Uncontrol led type 2 diabetes mellitus with hyperglycemia (HCC),RADHA (obstructive sleep apnea) Take 4 Tablets by mouth in the morning. 90 Tablet 3 03/23/2023 4 Discontinued(Pat ient preference/disco ntinuation) Lokelma 10 GM Oral Packet Take 1 Packet by mouth in the morning. 08/20/2023 4 Discontinued(Pat ient preference/disco ntinuation) Lantus SoloStar 100 UNIT/ML Subcutaneous Solution Pen-injectorIndica tions:Type 2 diabetes mellitus with hemoglobin A1c goal of less than 7.5% (HCC) Inject 25 Units under the skin in the morning. 15 mL 3 10/13/2023 4 Discontinued(Ref ill) Sildenafil Citrate 20 MG Oral Tablet (Revatio)Indicatio ns:Coronary artery disease involving [place] coronary artery of [place] heart without angina pectoris,HTN, goal below 140/90,RADHA (obstructive sleep apnea),Chronic diastolic heart failure (HCC) Take 1 Tablet by mouth in the morning and 1 Tablet at noon and 1 Tablet before bedtime. 90 Tablet 2 10/13/2023 4 Discontinued(Ref ill) documented as of this encounter (statuses as of 01/08/2024) Active Problems Problem Noted Date Diagnosed Date Body mass index (BMI) of 45.0 to 49.9 in adult 0 10/26/2023 Overview: Per Obesity protocol - Per Obesity protocol Cerebrovascular disease, arteriosclerotic, post- stroke 08/27/2023 Diabetic ulcer of left heel associated with type 2 diabetes mellitus 08/27/2023 HTN, goal below 130/80 08/27/2023 Pulmonary HTN 01/17/2023 Coronary artery disease invo lving [place] coronary artery of [place] heart without angina pectoris 01/17/2023 Chronic [...] as of this encounter (statuses as of 01/08/2024) Resolved Problems Problem Noted Date Diagnosed Date Resolved Date Stage 3a chronic kidney disease 08/27/2023 09/24/2023 Body mass index (BMI) of 40. 0 to 44.9 in adult 04/27/2023 10/28/2023 Overview: Per Obesity protocol documented as of this encounter (statuses as of 01/08/2024) Immunizations Name Administration Dates Next Due Pneumococcal Conjugate Vacci ne, 20-valent ([id number]) 03/23/2023 Pneumococcal Polysaccharide PPV23 (Pneumovax) 01/06/2008 Seasonal [...] Date Recorded PHQ Adult Total Score 0 12/23/2023 Hunger Vital Sign Answer Date Recorded Within the past 12 months, y ou worried that your food would run out before you got the money to buy more. Never true 12/23/19 24 Within the past 12 months, t he food you bought just didn't last and you didn't have money to get more. Never true 12/23/2023 Childcare Answer Date Recorded Do you feel overwhelmed with taking care of a child, family member or friend? No 12/23/2023 Does your family need help f inding childcare? (Household - for ages 0-17 years) Not on file 12/23/2023 Clothing Answer Date Recorded Have you been unable to get clothing when it was really needed? No 12/23/2023 Is your family able to get c lothes or diapers when needed? (Household - for ages 0-17 years) Not on file 12/23/2023 Personal Safety Answer Date Recorded Do you feel unsafe or have concerns for your saf ety? No 12/23/2023 Do you have concerns for you r family's safety? (Household - for ages 0-17 years) Not on file 12/23/2023 Utilities Answer Date Recorded Do you have trouble paying y our heating, water, or electric bill? No 12/23/2023 Is your family able to pay t he heat, water, or electric bill? (Household - for ages 0-17 years) Not on file 12/23/2023 Does your family have access to good internet? (Household - for ages 0-17 years) Not on file 12/23/2023 Employment Status Answer Date Recorded Are you unemployed or without regular income? No 12/23/2023 Does the household have a re gular source of income? (Household - for ages 0-17 years) Not on file 12/23/2023 Social Connections Answer Date Recorded How often do you feel lonely or isolated from th ose around you? Never 12/23/2023 Financial Resource Strain Answer Date R ecorded Do you have any trouble payi ng for your medications, or do you think you might in the future? No 12/23/2023 Does your family have troubl e paying for medicine? (Household - for ages 0-17 years) Not on file 12/23/2023 Transportation Needs Answer Date Record ed READ ONLY Do you have troubl e getting a ride to medical visits or work? Never True 12/23/2023 Does your family have a hard time getting a ride to doctors visits? (Household - for ages 0-17 years) Not on file 12/23/2023 Has lack of transportation k ept you from medical appointments, meetings, work, or from getting things needed for daily living? Check all that apply. No 12/23/2023 Do you (or your family) have trouble finding or paying for a ride (transportation)? (Household - for ages 0-17 years) Not on file 12/23/2023 Housing Stability Answer Date Recorded Do you currently live in a s helter or have no steady place to sleep at night? No 12/23/2023 READ ONLY Do you think you a re at risk of becoming homeless? No 12/23/2023 Does your family worry about paying for your home or becoming homeless? (Household - for ages 0-17 years) Not on file 0 12/23/2023 Are you homeless or worried that you might be in the future? No 12/23/2023 Are you (or your family) mason eless or worried that you might be in the future? (Household - for ages 0-17 years) Not on file Food Insecurity Answer Date Recorded Do you need food for this week? No 12/23/2023 Are you able to get enough f ood for your family? (Household - for ages 0-17 years) Not on file 12/23/2023 Does your family need food t his week? (Household - for ages 0-17 years) Not on file 12/23/2023 Do you always have enough fo od for your family? (Household - for ages 0-17 years) Not on file 12/23/2023 Sex and Gender Information Value Date Recorded Sex Assigned at Not on file Gender Identity Not on file Sexual Orientation Not on file Job Start Date Occupation Industry Not on file Not on file Not on file documented as of this encounter Miscellaneous Notes * Telephone Encounter - Elizabeth Rome LPN - 11/06/2023 5:43 PM EDT Patient is aware and will comply. Thank you Will have labs done on 11/17 at cardiology appt. * Telephone Encounter - Bridgette Celis MD - 11/06/2023 4:12 PM EDT Patient should get repeat BMP before starting metformin and Jardiance as it can make her kidney function worse. She should continue hydration all the time and especially before the blood work and no need to fast. Order is in. * Telephone Encounter - Debi Moeller LPN - 11/05/2023 9:55 AM EDT Patient calling back: Advised of the message from Dr. Celis She stated that on 09/27 while she was at the hospital she was taken off of Metformin and Jardiance.She has not been taking this medication since. Please advise on further recommendation. Is she still to repeat BMP? * Telephone Encounter - Lili John OSA - 11/05/2023 9:51 AM EDT Reason for patient's call: Pt returning call Caller was transferred to [facility] at the nurse line. * Telephone Encounter - Elizabeth Rome LPN - 11/04/2023 6:01 PM EDT Called daughter's cell, unable to leave a voicemail as box is full. Called, left message for patient to return call. Thank you * Telephone Encounter - Maria Teresa Hubbard MED ASSIST - 10/23/2023 2:51 PM EDT Called patient, left message to return call. * Telephone Encounter - Maria Teresa Hubbard MED ASSIST - 10/23/2023 2:48 PM EDT ----- Message from Bridgette Celis MD sent at 10/22/2023 11:52 PM EDT ----- Renal panel is getting worse same ass few months back. Advise on holding metformin for 5 days, continue hydration and repeat stat BMP in 5 days. Please check how she is doing clinically. Avoid Nsaids and work now salt. ER for any emergncies. documented in this encounter Plan of Treatment Upcoming Encounters Date Type Department Care Team (Late st Contact Info) Description 02/08/2024 9:00 AM EDT Office Visit Cardiology, [place] [address] [place] [address] Phan Hannah DO [address] [place] [address] 02/08/2024 2:00 PM EDT Office Visit Pharmacy, [facility] [address] [facility] [place] [place] [place] [address] Pharmacist1, [facility] [address] [facility] [place] [address] 02/09/2024 7:40 AM EDT Office Visit Pulmonary Medicine, [facility] [address] [facility] [place] [address] Eduardo Christine MD [facility] [place] [id number] 02/09/2024 11:40 AM EDT Office Visit Sleep Disorders, [facility] [address] [place] [address] Debo Romero MD [address] [facility] [place] [address] 02/23/2024 2:40 PM EDT Office Visit Nephrology, [facility] [address] [facility] [address] [place], [place] [address] Rene Mo MD [address] [facility] [place] [address] 04/19/2024 9:40 AM EST Office Visit General Internal Medicine [facility] [place] [address] [place] [place] [address] Bridgette Celis MD [address] [facility] [place], [place] [address] Health Maintenance Due Date Last Done Comments Diabetic Eye Exam 1976 Cologuard 2003 Colonoscopy 2003 Colorectal Cancer Screening 2003 Fecal Occult Blood Test 2003 Sigmoidoscopy 2003 Zoster Vaccines (1 of 2) 2008 Mammogram 12/17/2022 12/17/2021, 12/0 09/2016, 11/20/2014, Additional history exists *BASELINE EKG FOR HTN 01/19/2023 COVID-19 Vaccine ( season) 2023 DXA Scan 2023 Albumin/Creatinine Ratio 01/18/2024 01/17/2023 Influenza Vaccine (FLU shot) (#1) 2024 03/16/2020, 03/16/2020, 03/23/2019, Additional history exists Diabetic Foot Exam 03/23/2024 03/23/2023 GFR 06/30/2024 12/29/2023, 04/3 , 08/27/2023, Additional history exists HbA1c 06/30/2024 12/29/2023, 08/0 10/2022, 12/17/2021, Additional history exists Depression Monitoring 12/22/2024 12/23/2023 CKD HGB USE SMARTSET 31055 12/28/202412/28, 12/29/2023, 08/15/2023, Additional history exists CKD PHOS USE SMARTSET 48312 12/28/202412/13, 01/17/2023, 12/25/2019 DTaP,Tdap,and Td Vaccines (3 - Td or Tdap) 03/23/2033 03/23/2023, 08/28/2006 Pneumococcal Vaccine: 65+ Years Completed 03/23/2023, 01/06/2008 HPV (Gardasil) Vaccine Aged Out No lo nger eligible based on patient's age to complete this topic Hepatitis B Vaccine Aged Out No longe r eligible based on patient's age to complete this topic MENINGOCOCCAL (MENACTRA/MENVEO) Aged Out No longer eligible based on patient's age to complete this topic documented as of this encounter Medical Devices Not on filedocumented as of this encounter Visit Diagnoses Diagnosis HTN, goal below 140/90- Primary Unspecified essential hypertension Stage 3a chronic kidney disease (HCC) documented in this encounter Advance Directives Healthcare Agents on File Name Relationship [facility] Tomi Rao Adult Child Health Care Agen t (per Health Care Power of Rn Enterostomal document) Care Teams Tire Room Supervisor Relationship Specialty Start Date End Date Bridgette Celis MD [address] [place] [address] PCP - General Internal Medicine 09/30/23 documented as of this encounter
--- OUTSIDE RECORDS SUMMARY | 2024-02-06 10:56 | External Medical Summary ---
Author Name Unknown Address Unknown Organization [id number]:[facility] - [address] [place] [address] Laboratory Report Ordering Provider Test Date Status KEITH RUTH 12/29/2023 16:48:42 Final Observation Date Value Abnormality Reference (Units ) Status SYNC LEUKOCYTES IN BLOOD BY AUTOMATED COUNT 12/29/2023 16:48:42 10.18 4.00-10.80 (K/uL) Final Segs 12/29/2023 16:48:42 85.0 Above high normal 40.0-75.0 (%) Final Lymphs % 12/29/2023 16:48:42 8.8 Below low normal 18.0-42.0 (%) Final Monos 12/29/2023 16:48:42 3.8 1.0-11.0 (%) Final Eosinophils 12/29/2023 16:48:42 1.0 0.0-6.0 (%) Final Basos 12/29/2023 16:48:42 0.8 0.0-2.0 (%) Final Immature Granulocyte, Percent 12/29/2023 16:48:42 0.6 0.0-2.0 (%) Final Absolute Segs 12/29/2023 16:48:42 8.65 Above high normal 1.80-7.70 (K/uL) Final Lymphs, absolute 12/29/2023 16:48:42 0.90 Below low normal 1.00-4.80 (K/ul) Final Monos, Abs 12/29/2023 16:48:42 0.39 0.00-1.10 (K/uL) Final Eos, Abs 12/29/2023 16:48:42 0.10 0.00-0.70 (K/uL) Final Basos, Abs 12/29/2023 16:48:42 0.08 0.00-0.20 (K/uL) Final Immature Granulocytes, Number 12/29/2023 16:48:42 0.06 0.00-0.20 (K/uL) Final Performing Location [facility] - [facility] [address] [facility] [address]
--- OUTSIDE RECORDS SUMMARY | 2024-02-06 10:56 | External Medical Summary | Summary of Care ---
Author Name Unknown Organization [facility] Address [address] [place] [address] Phone [phone] Care Team Providers Care Records Section Supervisor Name Role Phone Bridgette Celis MD Primary Care Provider + Encounter Details Date Type Department Care Team ([facility] Contact Info) Description 01/07/2024 External Data Patient Risk Medial Allergies No known active allergiesdocumented as of this encounter (statuses as of 01/07/2024) Medications Medication Sig Dispensed Refills Start Date End Date Status OneTouch Delica Plus [id number] Use as directed. 400 Each 3 10/01/2023 Active OneTouch Ultra In Vitro Strip (Glucose Blood)Indications:Type 2 diabetes mellitus with hemoglobin A1c goal of less than 7.5% ([facility]) Use to check blood sugar up to 4 times daily 400 Strip 3 10/13/2023 Active Torsemide 20 MG Oral Tablet (Demadex)Indications:C hronic diastolic heart failure (HCC) Take 40 mg (2 tablets) by mouth in the morning and 20 mg ( 1 tablet) in the afternoon. 90 Tablet 12/28/2023 Active Aspirin 81 MG Oral Capsule Take 81 mg by mouth in the morning. Active amLODIPine Besylate 10 MG Oral Tablet (Norvasc) Take 1 Tablet by mouth in the morning. 90 Tablet 3 12/29/2023 Active Escitalopram Oxalate 20 MG Oral Tablet (Lexapro) Take 1 Tablet by mouth in the morning. 90 Tablet 3 12/29/2023 Active hydrALAZINE HCl 100 MG Oral Tablet Take 1 Tablet by mouth in the morning and 1 Tablet at noon and 1 Tablet before bedtime. 90 Tablet 12/29/2023 Active Lantus SoloStar 100 UNIT/ML Subcutaneous Solution Pen-injectorIndication s:Type 2 diabetes mellitus with hemoglobin A1c goal of less than 7.5% (HCC) Inject 25 Units under the skin in the morning. 15 mL 3 12/29/2023 Active Metoprolol Succinate ER 100 MG Oral Tablet Extended Release 24 Hour (toPROL XL)Indications:Chronic diastolic heart failure (HCC) Take 1 Tablet by mouth in the morning. 30 Tablet 11 12/29/2023 Active Rosuvastatin Calcium 20 MG Oral Tablet (Crestor) Take 1 Tablet by mouth in the morning. 90 Tablet 3 12/29/2023 Active Sildenafil Citrate 20 MG Oral Tablet (Revatio)Indications:C hronic diastolic heart failure (HCC),Coronary artery disease involving [place] coronary artery of [place] heart without angina pectoris,HTN, goal below 140/90,RADHA (obstructive sleep apnea) Take 1 Tablet by mouth in the morning and 1 Tablet at noon and 1 Tablet before bedtime. 90 Tablet 2 12/29/2023 Active Hospital, Clinic, or Other Facility Administered [...] as of this encounter (statuses as of 01/07/2024) Active Problems Problem Noted Date Diagnosed Date Body mass index (BMI) of 45.0 to 49.9 in adult 0 10/26/2023 Overview: Per Obesity protocol - Per Obesity protocol Cerebrovascular disease, arteriosclerotic, post- stroke 08/27/2023 Diabetic ulcer of left heel associated with type 2 diabetes mellitus 08/27/2023 HTN, goal below 130/80 08/27/2023 Pulmonary HTN 01/17/2023 Coronary artery disease invo lving [place] coronary artery of [place] heart without angina pectoris 01/17/2023 Chronic diastolic [...] as of this encounter (statuses as of 01/07/2024) Resolved Problems Problem Noted Date Diagnosed Date Resolved Date Stage 3a chronic kidney disease 08/27/2023 09/24/2023 Body mass index (BMI) of 40. 0 to 44.9 in adult 04/27/2023 10/28/2023 Overview: Per Obesity protocol documented as of this encounter (statuses as of 01/07/2024) Immunizations Name Administration Dates Next Due Pneumococcal Conjugate Vacci ne, 20-valent ([id number]) 03/23/2023 Pneumococcal Polysaccharide PPV23 (Pneumovax) 01/06/2008 Seasonal [...] Description 02/08/2024 9:00 AM EDT Office Visit [facility] [address] [place] [address] Phan Hannah DO [address] [place] [address] 02/08/2024 2:00 PM EDT Office Visit Pharmacy, [facility] [place] [address] [place] [address] Pharmacist1, [facility] [address] [facility] [place] [address] 02/09/2024 7:40 AM EDT Office Visit Pulmonary Medicine, [facility] [address] [facility] [place] [address] Eduardo Christine MD [address] [place] [address] 02/09/2024 11:40 AM EDT Office Visit Sleep Disorders, [facility] [address] [place] [address] Debo Romero MD [address] [place], [place] [id number] 02/23/2024 2:40 PM EDT Office Visit Nephrology, [facility] [address] [place], [place] [address] Rene Mo MD [address] [place], [place] [address] 04/19/2024 9:40 AM EST Office Visit General Internal Medicine [facility] [place] [address] [place], [place] [address] Bridgette Celis MD [address] [facility] [address] [place], [place] [address] Health Maintenance Due Date Last Done Comments [...] Monitoring 12/22/2024 12/23/2023 CKD HGB USE SMARTSET 61891 12/28/202412/28, 12/29/2023, 08/15/2023, Additional history exists CKD PHOS USE SMARTSET 18313 12/28/202412/13, 01/17/2023, 12/25/2019 DTaP,Tdap,and Td Vaccines (3 [...] Agen t (per Health Care Power of Data Base Administrator document) Care Teams Records Section Supervisor Relationship Specialty Start Date End Date Bridgette Celis MD [address] [place] [place] [address] PCP - General Internal Medicine 09/30/23 documented as of this encounter
--- OUTSIDE RECORDS SUMMARY | 2024-02-06 10:56 | External Medical Summary | Summary of Care ---
Author Name Unknown Organization [facility] Address [address] [place] [address] Phone [phone] Care Team Providers Care Services Mgr Name Role Phone Flory Celis MD Primary Care Provider + Reason for Visit * Reason Comments eRx-Medication Refill Encounter Details Date Type Department Care Team (Late st Contact Info) Description 12/25/2023 Refill General Internal Medicine [facility] [address] [facility] [place] [address] Flory Celis MD [address] [facility] [place] [address] Chronic diastolic heart failure (HCC) Allergies No known active allergiesdocumented as of this encounter (statuses as of 12/28/2023) Medications Medication Sig Dispensed Refills Start Date End Date Status Metoprolol Succinate ER 100 MG Oral Tablet Extended Release 24 Hour (toPROL XL)Indications:Train Operations Manager yaw diastolic heart failure (HCC) Take 1 Tablet by mouth in the morning. 30 Tablet 11 03/16/2023 Active Lisinopril 2.5 MG Oral Tablet (Prinivil)Indicatio ns:Chronic diastolic heart failure (HCC),Coronary artery disease involving [place] coronary artery of [place] heart without angina pectoris,Uncontroll ed type 2 diabetes mellitus with hyperglycemia (HCC),RADHA (obstructive sleep apnea) Take 4 Tablets by mouth in the morning. 90 Tablet 3 03/23/2023 Active Lokelma 10 GM Oral Packet Take 1 Packet by mouth in the morning. 08/20/2023 Active OneTouch Delica Plus [id number] Use as directed. 400 Each 3 10/01/2023 Active Lantus SoloStar 100 UNIT/ML Subcutaneous Solution Pen-injectorIndicat ions:Type 2 diabetes mellitus with hemoglobin A1c goal of less than 7.5% ([facility]) Inject 25 Units under the skin in the morning. 15 mL 3 10/13/2023 Active OneTouch Ultra In Vitro Strip (Glucose Blood)Indications:T ype 2 diabetes mellitus with hemoglobin A1c goal of less than 7.5% ([facility]) Use to check blood sugar up to 4 times daily 400 Strip 3 10/13/2023 Active Sildenafil Citrate 20 MG Oral Tablet (Revatio)Indication s:Coronary artery disease involving [place] coronary artery of [place] heart without angina pectoris,HTN, goal below 140/90,RADHA [...] the morning. 90 Tablet 3 10/26/2023 Active Spironolactone 25 MG Oral Tablet (Aldactone)Indicati ons:Chronic diastolic heart failure (HCC) Take 1 Tablet by mouth in the morning. 90 Tablet 3 12/14/2023 Active Torsemide 20 MG Oral Tablet (Demadex)Indication s:Chronic diastolic heart failure (HCC) Take 40 mg (2 tablets) by mouth in the morning and 20 mg ( 1 tablet) in the afternoon. 90 Tablet 12/28/2023 Active Torsemide 20 MG Oral Tablet (Demadex)Indication s:Chronic diastolic heart failure (HCC) Take 2 Tablets by mouth in the morning and 2 Tablets before bedtime. 40 in the AM and 20 in the PM. 01/17/2023 4 Discontinued Hospital, Clinic, or Other Facility [...] as of this encounter (statuses as of 12/28/2023) Active Problems Problem Noted Date Diagnosed Date [...] as of this encounter (statuses as of 12/28/2023) Resolved Problems Problem Noted Date Diagnosed Date Resolved Date Stage 3a chronic kidney disease 08/27/2023 09/24/2023 Body mass index (BMI) of 40. 0 to 44.9 in adult 04/27/2023 10/28/2023 Overview: Per Obesity protocol documented as of this encounter (statuses as of 12/28/2023) Immunizations Name Administration Dates Next Due Pneumococcal Conjugate Vacci ne, 20-valent ([id number]) 03/23/2023 Pneumococcal Polysaccharide PPV23 (Pneumovax) 01/06/2008 Seasonal [...] encounter Miscellaneous Notes * Telephone Encounter - Flory Celis MD - 12/28/2023 3:25 PM EDTSigned Prescriptions: Disp Refills Torsemide 20 MG Oral Tablet (Demadex) 90 Tab*0 Sig: Take 40 mg (2 tablets) by mouth in the morning and 20 mg ( 1 tablet) in the afternoon. Authorizing Provider: FLORY CELIS * Telephone Encounter - Anisha Doherty [facility] - 12/28/2023 11:10 AM EDTPending Prescriptions: Disp Refills Torsemide 20 MG Oral Tablet [Pharmacy Med *90 Tab*0 Sig: Take 40 mg (2 tablets) by mouth in the morning and 20 mg ( 1 tablet) in the afternoon. * Telephone Encounter - Anisha Doherty RP - 12/28/2023 11:09 AM EDT Unable to authorize medication refills for pended medication(s) at this time. Part of the protocol criteria used for refill authorization was not satisfied. Patient had drop in renal function on lastlabs. Please approve if appropriate. CREAT Date Value Ref Range Status 10/13/2023 1.7 (H) 0.5 - 1.0 mg/dL Final 08/27/2023 1.2 (H) 0.5 - 1.0 mg/dL Final Thank You, Anisha Doherty [facility] Clinical Pharmacist [facility] ([facility]) [phone] [id number] 12/28/2023, 11:09 AM * Telephone Encounter - Interface, [facility] - 12/27/2023 4:25 PM EDT Pending Prescriptions: Disp Refills Torsemide 20 MG Oral Tablet [Pharmacy Med *90 Tab*0 Sig: Take 40 mg (2 tablets) by mouth in the morning and 20 mg ( 1 tablet) in the afternoon. documented in this encounter Plan of Treatment Upcoming Encounters Date Type Department Care Team (Late st Contact Info) Description 12/29/2023 3:40 PM EDT Office Visit General Internal Medicine [facility] [address] [place] [address] Flory Celis MD [address] [place] [address] 04/19/2024 9:40 AM EST Office Visit General Internal Medicine [facility] [address] [place] [address] Flory Linda MD [address] [place] [address] Health Maintenance Due Date Last Done Comments [...] Ratio 01/18/2024 01/17/2023 CKD PHOS USE SMARTSET 19033 01/18/2024 01/17/2023, 0 12/25/2019 Influenza Vaccine (FLU shot) (#1) 2024 03/16/2020, 03/16/2020, 03/23/2019, Additional history exists Diabetic Foot Exam 03/23/2024 03/23/2023 GFR 04/13/2024 10/13/2023, 08/13, 08/15/2023, Additional history exists CKD HGB USE SMARTSET 11491 08/14/202408/14, 08/08/2023, 03/23/2023, Additional history exists Depression Monitoring 12/22/2024 12/23/2023 DTaP,Tdap,and Td Vaccines (3 - Td or [...] as of this encounter Visit Diagnoses Diagnosis Chronic diastolic heart failure (HCC) Chronic diastolic heart failure documented in this encounter Advance Directives Healthcare Agents on File Name Relationship Healthcare Agent Relationshi p Communication Tomi Rao Adult Child Health Care Agen t (per Health Care Power of Wood Carving Lathe Operator document) Care Teams Services Mgr Relationship Specialty Start Date End Date Flory Celis MD [address] [facility] [place] [address] PCP - General Internal Medicine 09/30/23 documented as of this encounter
--- OUTSIDE RECORDS SUMMARY | 2024-02-06 10:56 | External Medical Summary | Summary of Care ---
Author Name Unknown Organization [facility] Address [address] [place] [address] Phone [phone] Care Team Providers Care Air Deodorizer Servicer Name Role Phone Bridgette Celis MD Primary Care Provider + Encounter Details Date Type Department Care Team ([facility] st Contact Info) Description 01/25/2024 1:00 PM EDT Home Visit Care Coordination and Integration [address], [place] [phone] Mary Holman, [facility] Slicing Machine Tender [address], [place] [phone] Allergies No known active allergiesdocumented as of this encounter (statuses as of 01/26/2024) Medications Medication Sig Dispensed Refills Start Date End Date Status OneTouch Delica Plus [id number] Use as directed. 400 Each 3 10/01/2023 Active OneTouch Ultra In Vitro Strip (Glucose Blood)Indications:Type 2 diabetes mellitus with hemoglobin A1c goal of less than 7.5% ([facility]) Use to check blood sugar up [...] diastolic heart failure (HCC),Coronary artery disease involving [place] coronary artery of [place] heart without angina pectoris,HTN, goal below 140/90,RADHA [...] as of this encounter (statuses as of 01/26/2024) Active Problems Problem Noted Date Diagnosed Date Body mass index (BMI) of 45.0 to 49.9 in adult 0 10/26/2023 Overview: Per Obesity protocol - Per Obesity protocol Cerebrovascular disease, arteriosclerotic, post- stroke 08/27/2023 Diabetic ulcer of left heel associated with type 2 diabetes mellitus 08/27/2023 HTN, goal below 130/80 08/27/2023 Pulmonary HTN 01/17/2023 Coronary artery disease invo lving [place] coronary artery of [place] heart without angina pectoris 01/17/2023 Chronic [...] as of this encounter (statuses as of 01/26/2024) Resolved Problems Problem Noted Date Diagnosed Date Resolved Date Stage 3a chronic kidney disease 08/27/2023 09/24/2023 Body mass index (BMI) of 40. 0 to 44.9 in adult 04/27/2023 10/28/2023 Overview: Per Obesity protocol documented as of this encounter (statuses as of 01/26/2024) Immunizations Name Administration Dates Next Due Pneumococcal Conjugate Vacci ne, 20-valent ([id number]) 03/23/2023 Pneumococcal Polysaccharide PPV23 (Pneumovax) 01/06/2008 Seasonal [...] the money to buy more. Never true 01/25/20 24 Within the past 12 months, t he food you bought just didn't last and you didn't have money to get more. Never true 01/25/2024 Childcare Answer Date Recorded Do you feel overwhelmed with taking care of a child, family member or friend? No 01/25/2024 Does your family need help f inding childcare? (Household - for ages 0-17 years) Not on file 01/25/2024 Clothing Answer Date Recorded Have you been unable to get clothing when it was really needed? No 01/25/2024 Is your family able to get c lothes or diapers when needed? (Household - for ages 0-17 years) Not on file 01/25/2024 Personal Safety Answer Date Recorded Do you feel unsafe or have concerns for your saf ety? No 01/25/2024 Do you have concerns for you r family's safety? (Household - for ages 0-17 years) Not on file 01/25/2024 Utilities Answer Date Recorded Do you have trouble paying y our heating, water, or electric bill? No 01/25/2024 Is your family able to pay t he heat, water, or electric bill? (Household - for ages 0-17 years) Not on file 01/25/2024 Does your family have access to good internet? (Household - for ages 0-17 years) Not on file 01/25/2024 Employment Status Answer Date Recorded Are you unemployed or without regular income? No 01/25/2024 Does the household have a re gular source of income? (Household - for ages 0-17 years) Not on file 01/25/2024 Social Connections Answer Date Recorded How often do you feel lonely or isolated from th ose around you? Rarely 01/25/2024 Financial Resource Strain Answer Date R ecorded Do you have any trouble payi ng for your medications, or do you think you might in the future? No 01/25/2024 Does your family have troubl e paying for medicine? (Household - for ages 0-17 years) Not on file 01/25/2024 Transportation Needs Answer Date Record ed READ ONLY Do you have troubl e getting a ride to medical visits or work? Never True 01/25/2024 Does your family have a hard time getting a ride to doctors visits? (Household - for ages 0-17 years) Not on file 01/25/2024 Has lack of transportation k ept you from medical appointments, meetings, work, or from getting things needed for daily living? Check all that apply. No 01/25/2024 Do you (or your family) have trouble finding or paying for a ride (transportation)? (Household - for ages 0-17 years) Not on file 01/25/2024 Housing Stability Answer Date Recorded Do you currently live in a s helter or have no steady place to sleep at night? No 01/25/2024 READ ONLY Do you think you a re at risk of becoming homeless? No 01/25/2024 Does your family worry about paying for your home or becoming homeless? (Household - for ages 0-17 years) Not on file 0 01/25/2024 Are you homeless or worried that you might be in the future? No 01/25/2024 Are you (or your family) mason eless or worried that you might be in the future? (Household - for ages 0-17 years) Not on file Food Insecurity Answer Date Recorded Do you need food for this week? No 01/25/2024 Are you able to get enough f ood for your family? (Household - for ages 0-17 years) Not on file 01/25/2024 Does your family need food t his week? (Household - for ages 0-17 years) Not on file 01/25/2024 Do you always have enough fo od for your family? (Household - for ages 0-17 years) Not on file 01/25/2024 Sex and Gender Information Value Date Recorded Sex Assigned at Not on file Gender Identity Not on file Sexual Orientation Not on file Job Start Date Occupation Industry Not on file Not on file Not on file documented as of this encounter Last Filed Vital Signs Vital Sign Reading Time Taken Comments Blood Pressure 122/78 01/25/2024 1:20 PM EDT Pulse 57 01/25/2024 1:20 PM EDT Temperature 36 C (96.8 F) 01/25/2024 1:20 PM EDT Respiratory Rate 20 01/25/2024 1:20 PM EDT Oxygen Saturation 94% 01/25/2024 1:20 PM EDT Inhaled Oxygen Concentration - - Weight - - Height - - Body Mass Index - - documented in this encounter Progress Notes * Mary Holman [facility] Slicing Machine Tender - 01/26/2024 9:49 AM EDT Telemedicine visit: No [facility] Slicing Machine Tender (LITO) documentation: CHW cold visit completed this date. SDOH completed with no needs noted at this time Bottles out medication requisition completed with discrepancies: Pt had Lisinopril 2.5 Mg and Spironolactone 25 MG in her medications, which are not in her medication list in her chart. She did not have Metoprolol succinate ER 100 MG that was on the medication list in her chart. Pt's son stated that his gives the pt her medications and that the Lisinopril and Spironolactone were not being given. He wasn't sure about the Metoprolol. Pt's daughter in law was not at home to answer these questions. CHW immediately TT the RNCM to address the discrepancy. CHW left a note for the [id number] to clarify the medications in question and provided her with the RNCM's number to call with any questions. documented in this encounter Plan of Treatment Upcoming Encounters Date Type Department Care Team (Late st Contact Info) Description 02/08/2024 9:00 AM EDT Office Visit Cardiology, [place] [address] [address] Phan Hannah DO [address] [address] 02/08/2024 2:00 PM EDT Office Visit Pharmacy, [facility] [address] [place] [address] Pharmacist1, [facility] [address] [place] [address] 02/09/2024 7:40 AM EDT Office Visit Pulmonary Medicine, [facility] [address] [place] [address] Eduardo Christine MD [address] [place] [address] 02/09/2024 11:40 AM EDT Office Visit Sleep Disorders, [facility] [address] [place] [address] Debo Romero MD [address] [place], [place] [id number] 02/23/2024 2:40 PM EDT Office Visit Nephrology, [facility] [address] [facility] [place] [address] Rene Mo MD [address] [facility] [place] [address] 04/19/2024 9:40 AM EST Office Visit General Internal Medicine [facility] [place] [address] [facility] [place] [address] Bridgette Celis MD [address] [facility] [place] [address] Health Maintenance Due Date Last Done Comments [...] Monitoring 12/22/2024 12/23/2023 CKD HGB USE SMARTSET 54867 12/28/202412/28, 12/29/2023, 08/15/2023, Additional history exists CKD PHOS USE SMARTSET 75930 12/28/202412/13, 01/17/2023, 12/25/2019 DTaP,Tdap,and Td Vaccines (3 [...] Agen t (per Health Care Power of Canceling And Cutting Control Clerk document) Care Teams Air Deodorizer Servicer Relationship Specialty Start Date End Date Bridgette Celis MD 200 [place] [address] PCP - General Internal Medicine 09/30/23 documented as of this encounter
--- OUTSIDE RECORDS SUMMARY | 2024-02-06 10:56 | External Medical Summary | Summary of Care ---
Author Name Unknown Organization [facility] Address [address] [place] [address] Phone [phone] Care Team Providers Care Turner Splitter Machine Operator Name Role Phone Bridgette Celis MD Primary Care Provider + Reason for Visit * Reason Onset Date Comments FYI 01/07/2024 LGI Encounter Details Date Type Department Care Team (Late st Contact Info) Description 01/07/2024 Telephone General Internal Medicine [facility] 200 [facility] [place] [address] Bridgette Celis MD [address] [place] [address] FYI (LGI) Allergies No known active allergiesdocumented as of this encounter (statuses as of 01/13/2024) Medications Medication Sig Dispensed Refills Start Date End Date Status OneTouch Delica Plus [id number] Use as directed. 400 Each 3 10/01/2023 Active OneTouch Ultra In Vitro Strip (Glucose Blood)Indications:Type 2 diabetes mellitus with hemoglobin A1c goal of less than 7.5% ([facility]) Use to check blood sugar up [...] diastolic heart failure (HCC),Coronary artery disease involving [place] coronary artery of [place] heart without angina pectoris,HTN, goal below [...] as of this encounter (statuses as of 01/13/2024) Active Problems Problem Noted Date Diagnosed Date Body mass index (BMI) of 45.0 to 49.9 in adult 0 10/26/2023 Overview: Per Obesity protocol - Per Obesity protocol Cerebrovascular disease, arteriosclerotic, post- stroke 08/27/2023 Diabetic ulcer of left heel associated with type 2 diabetes mellitus 08/27/2023 HTN, goal below 130/80 08/27/2023 Pulmonary HTN 01/17/2023 Coronary artery disease invo lving [place] coronary artery of [place] heart without angina pectoris 01/17/2023 Chronic [...] as of this encounter (statuses as of 01/13/2024) Resolved Problems Problem Noted Date Diagnosed Date Resolved Date Stage 3a chronic kidney disease 08/27/2023 09/24/2023 Body mass index (BMI) of 40. 0 to 44.9 in adult 04/27/2023 10/28/2023 Overview: Per Obesity protocol documented as of this encounter (statuses as of 01/13/2024) Immunizations Name Administration Dates Next Due Pneumococcal Conjugate Vacci ne, 20-valent ([id number]) 03/23/2023 Pneumococcal Polysaccharide PPV23 (Pneumovax) 01/06/2008 Seasonal [...] encounter Miscellaneous Notes * Telephone Encounter - Breana Flowers MED ASSIST - 01/13/2024 12:58 PM EDT Patient's son, Tomi, aware and receptive to instructions. * Telephone Encounter - Bridgette Celis MD - 01/08/2024 11:27 AM EDT Noted. Hba1c, cbcd, renal panel not normal but much better than before. If agreeable can get colonoscopy and upper endoscopy done once done cardiology visit in few days with Dr. Hannah. Dr. Hannah: please let us know if pt can be clear for colonoscopy as a anemia work up.Thanks * Telephone Encounter - Timur Willingham LPN - 01/07/2024 1:54 PM EDT Through advanced analysis/trending of this patients Complete Blood Counts (CBC), they have been identified to have a positive LGI flag and at a higher risk for hidden bleeding in the intestine dueto several conditions such as ulcers, colon polyps, harmless conditions, or even colon cancer. This advanced analysis estimates the patient's risk of these kinds of conditions. It only indicatesthat the patient's chances to have one of these conditions are higher compared to most people. It does not indicate that the patient has any of these conditions but is highly recommended the patient have a colonoscopy for further evaluation. Patients with a positive LGI flag have a 40% chance (six times more likely) of having a serious GI pathology finding versus unflagged patients. I have contacted the patient regarding scheduling a colonoscopy. Colonoscopy outreach: After chart review sent to PCP for recommendation Thank you. Timur Willingham LPN Should I reach out to offer a colonoscopy based on her risk? documented in this encounter Plan of Treatment Upcoming Encounters Date Type Department Care Team (Late st Contact Info) Description 02/08/2024 9:00 AM EDT Office Visit [facility] [address] [place] [address] Phan Hannah, DO [address] [place] [address] 02/08/2024 2:00 PM EDT Office Visit Pharmacy, [facility] [place] [address] [place] [address] Pharmacist1, [facility] [address] [place] [address] 02/09/2024 7:40 AM EDT Office Visit Pulmonary Medicine, [facility] [address] [facility] [place] [address] Eduardo Christine MD [address] [facility] [place] [address] 02/09/2024 11:40 AM EDT Office Visit Sleep Disorders, [facility] [address] [place] [address] Debo Romero MD [address] [place] [address] 02/23/2024 2:40 PM EDT Office Visit Nephrology, [facility] [address], [place] [address] Rene Mo MD 200 [facility] [place] [address] 04/19/2024 9:40 AM EST Office Visit General Internal Medicine [facility] [place] [address] [place] [address] Bridgette Celis MD [address] [place] [address] Health Maintenance Due Date Last Done Comments [...] Monitoring 12/22/2024 12/23/2023 CKD HGB USE SMARTSET 91405 12/28/202412/28, 12/29/2023, 08/15/2023, Additional history exists CKD PHOS USE SMARTSET 96645 12/28/202412/13, 01/17/2023, 12/25/2019 DTaP,Tdap,and Td Vaccines (3 - Td or Tdap) 03/23/2033 03/23/2023, 08/28/2006 Pneumococcal Vaccine: 65+ Years Completed 03/23/2023, 01/06/2008 HIV Screening Completed 08/07/2023 Hepatitis C Screening Completed 08/07/2023 HPV (Gardasil) Vaccine Aged Out No lo [...] Agen t (per Health Care Power of C D Area Supervisor document) Care Teams Turner Splitter Machine Operator Relationship Specialty Start Date End Date Bridgette Celis MD 200 [place] [address] PCP - General Internal Medicine 09/30/23 documented as of this encounter
--- OUTSIDE RECORDS SUMMARY | 2024-02-06 10:56 | External Medical Summary | Summary of Care ---
Author Name Unknown Organization [facility] Address [address] [place] [address] Phone [phone] Care Team Providers Care Geodesy Teacher Name Role Phone Bridgette Celis MD Primary Care Provider + Reason for Visit * Reason Onset Date Comments Test Results 01/13/2024 NA 01/12 Encounter Details Date Type Department Care Team (Late st Contact Info) Description 01/13/2024 Telephone General Internal Medicine [facility] [address] [place] [address] Bridgette Celis MD [address] [place] [address] Test Results (NA 01/12/) Allergies No known active allergiesdocumented as of this encounter (statuses as of 01/13/2024) Medications Medication Sig Dispensed Refills Start Date End Date Status OneTouch Delica Plus [id number] Use as directed. 400 Each 3 10/01/2023 Active OneTouch Ultra In Vitro Strip (Glucose Blood)Indications:Type 2 diabetes mellitus with hemoglobin A1c goal of less than 7.5% ([facility]) Use to check blood sugar up [...] diastolic heart failure (HCC),Coronary artery disease involving [place] coronary artery of [place] heart without angina pectoris,HTN, goal below 140/90,RADHA [...] HTN 01/17/2023 Coronary artery disease invo lving [place] coronary artery of [place] heart without angina pectoris 01/17/2023 Chronic diastolic [...] Next Due Pneumococcal Conjugate Vacci ne, 20-valent ([id number]) 03/23/2023 Pneumococcal Polysaccharide PPV23 (Pneumovax) 01/06/2008 Seasonal [...] encounter Miscellaneous Notes * Telephone Encounter - Randa Borden LPN - 01/13/2024 10:16 AM EDT Called patient. No answer. When patient returns call please refer to below documentation. Ok for RADHA to relay message. If needed, can transfer to dedicated nurse line. * Telephone Encounter - Randa Borden LPN - 01/13/2024 9:23 AM EDT ----- Message from Bridgette Celis MD sent at 01/08/2024 12:01 PM EDT ----- Recent chest x-ray shows some airspace opacity in both we to lower lungs and very small amount of fluid. Continue all the current medications and keep all scheduled appointments. ER for any emergencies any time. documented in this encounter Plan of Treatment Upcoming Encounters Date Type Department Care Team (Late st Contact Info) Description 02/08/2024 9:00 AM EDT Office Visit Cardiology, [place] [address] [place] [address] Phan Hannah DO [address] [place] [address] 02/08/2024 2:00 PM EDT Office Visit Pharmacy, [facility] [address] [place] [address] Pharmacist1, [facility] [address] [facility] [place] [address] 02/09/2024 7:40 AM EDT Office Visit Pulmonary Medicine, [facility] [address] [facility] [place] [address] Eduardo Christine MD [facility] [address] [facility] [place] [address] 02/09/2024 11:40 AM EDT Office Visit Sleep Disorders, [facility] [address] [place] [address] Debo [facility] [id number] 02/23/2024 2:40 PM EDT Office Visit Nephrology, [facility] [address] [facility] [address] [place] [address] Rene Mo MD [address] [place] [address] 04/19/2024 9:40 AM EST Office Visit General Internal Medicine [facility] [place] [address] [facility] [place] [address] Bridgette Celis MD [address] [place] [address] Health Maintenance Due Date Last Done Comments [...] Monitoring 12/22/2024 12/23/2023 CKD HGB USE SMARTSET 16334 12/28/202412/28, 12/29/2023, 08/15/2023, Additional history exists CKD PHOS USE SMARTSET 67863 12/28/202412/13, 01/17/2023, 12/25/2019 DTaP,Tdap,and Td Vaccines (3 [...] Agen t (per Health Care Power of Community Engagement Manager document) Care Teams Geodesy Teacher Relationship Specialty Start Date End Date Bridgette Celis MD [address] [place] [address] PCP - General Internal Medicine 09/30/23 documented as of this encounter
--- OUTSIDE RECORDS SUMMARY | 2024-02-06 10:56 | External Medical Summary ---
Author Name Unknown Address Unknown Organization K01:[facility] [place] [address] [place] [address] Laboratory Report Ordering Provider Test Date Status RODOLFO VANESSA 12/29/2023 16:48:42 Final Observation Date Value Abnormality Reference (Units ) Status BUN 12/29/2023 16:48:42 69 Above high normal 6-20 (mg/dL) Final Creatinine 12/29/2023 16:48:42 1.5 Above high normal 0.5-1.0 (mg/dL) Final Glomerular filtration rate/1.73 sq M.predicted [Volume Rate/Area] in Serum, Plasma or Blood by Creatinine-based formula (CKD-EPI) 12/29/2023 16:48:42 39 Below low normal >=60 (mL/min) Final eGFR is calculated based on the CKD-EPI 2020 equation Sodium 12/29/2023 16:48:42 140 135-146 (m mol/L) Final Potassium 12/29/2023 16:48:42 4.6 3.5-5.1 (m mol/L) Final Cl 12/29/2023 16:48:42 103 98-107 (mm ol/L) Final CO2 12/29/2023 16:48:42 24 22-32 (mmo l/L) Final Anion gap 12/29/2023 16:48:42 13 7-15 (mmol /L) Final Glucose 12/29/2023 16:48:42 165 Above high normal 70 -120 (mg/dL) Final Calcium 12/29/2023 16:48:42 10.1 8.4-10.2 ( mg/dL) Final Albumin 12/29/2023 16:48:42 3.7 Below low normal 3.8 -5.0 (g/dL) Final Phosphate 12/29/2023 16:48:42 3.9 2.5-4.8 (m g/dL) Final Performing Location LABORATORY C - [address] [place] [address]
--- OUTSIDE RECORDS SUMMARY | 2024-02-06 10:56 | External Medical Summary | Summary of Care ---
Author Name Unknown Organization [facility] Address [address] [place] [facility] [place] [address] Phone [phone] Care Team Providers Care Manager Manufacturing Name Role Phone Bridgette Celis MD Primary Care Provider + Reason for Visit * Reason Comments eRx-Medication Refill Encounter Details Date Type Department Care Team (Late st Contact Info) Description 01/26/2024 Refill General Internal Medicine [facility] [place] [facility] [address] [place] [address] Bridgette Celis MD [address] [facility] [place] [address] Chronic diastolic heart failure (HCC) Allergies No known active allergiesdocumented as of this encounter (statuses as of 01/28/2024) Medications Medication Sig Dispensed Refills Start Date End Date Status OneTouch Delica Plus [id number] Use as directed. 400 Each 3 10/01/2023 Active OneTouch Ultra In Vitro Strip (Glucose Blood)Indications: Type 2 diabetes mellitus with hemoglobin A1c goal of less than 7.5% (HCC) Use to check blood sugar up to 4 times daily 400 Strip 3 10/13/2023 Active Aspirin 81 MG Oral Capsule Take [...] Active Lantus SoloStar 100 UNIT/ML Subcutaneous Solution Pen-injectorIndica [...] Active Sildenafil Citrate 20 MG Oral Tablet (Revatio)Indicatio ns:Chronic diastolic heart failure (HCC),Coronary artery disease involving [place] coronary artery of [place] heart without angina pectoris,HTN, goal below 140/90,RADHA (obstructive sleep apnea) Take 1 Tablet by mouth in the morning and 1 Tablet at noon and 1 Tablet before bedtime. 90 Tablet 2 12/29/2023 Active Torsemide 20 MG Oral Tablet (Demadex)Indicatio ns:Chronic diastolic heart failure (HCC) Take 40 mg (2 tablets) by mouth in the morning and 20 mg ( 1 tablet) in the afternoon. 90 Tablet 1 01/28/2024 Active Torsemide 20 MG Oral Tablet (Demadex)Indicatio ns:Chronic diastolic heart failure (HCC) Take 40 mg (2 tablets) by mouth in the morning and 20 mg ( 1 tablet) in the afternoon. 90 Tablet 12/28/2023 01/28/2024 Discontinued Hospital, Clinic, or Other Facility Administered [...] as of this encounter (statuses as of 01/28/2024) Active Problems Problem Noted Date Diagnosed Date Chronic kidney disease, stage 3a 01/25/2024 Overview: Per CKD protocol Body mass index (BMI) of 45.0 to 49.9 in adult 0 10/26/2023 Overview: Per Obesity protocol - Per Obesity protocol Cerebrovascular disease, arteriosclerotic, post- stroke 08/27/2023 Diabetic ulcer of left heel associated with type 2 diabetes mellitus 08/27/2023 HTN, goal below 130/80 08/27/2023 Pulmonary HTN 01/17/2023 Coronary artery disease invo lving [place] coronary artery of [place] heart without angina pectoris 01/17/2023 Chronic diastolic heart failure 01/17/2023 Lymphedema 01/17/2023 HTN, goal below 140/90 01/17/2023 Type 2 diabetes mellitus wit h hemoglobin A1c goal of less than 7.5% 01/17/2023 Diabetic retinopathy associa rishi with type 2 diabetes mellitus 01/17/2023 Hidradenitis suppurativa 01/17/2023 RADHA (obstructive sleep apnea) 01/17/2023 BERTA (generalized anxiety disorder) 01/17/2023 Recurrent major depressive disorder, in full rem ission 01/17/2023 documented as of this encounter (statuses as of 01/28/2024) Resolved Problems Problem Noted Date Diagnosed Date Resolved Date Stage 3a chronic kidney disease 08/27/2023 09/24/2023 Body mass index (BMI) of 40. 0 to 44.9 in adult 04/27/2023 10/28/2023 Overview: Per Obesity protocol Kidney disease, chronic, sta ge III (GFR 30-59 ml/min) 01/17/2023 01/28/2024 Overview: Per CKD protocol documented as of this encounter (statuses as of 01/28/2024) Immunizations Name Administration Dates Next Due Pneumococcal Conjugate Vacci ne, 20-valent ([id number]) 03/23/2023 Pneumococcal Polysaccharide PPV23 (Pneumovax) 01/06/2008 Seasonal [...] encounter Miscellaneous Notes * Telephone Encounter - Luz Munson [facility] - 01/28/2024 10:33 AM EDTSigned Prescriptions: Disp Refills Torsemide 20 MG Oral Tablet (Demadex) 90 Tab*1 Sig: Take 40 mg (2 tablets) by mouth in the morning and 20 mg ( 1 tablet) in the afternoon.Authorizing Provider: BRIDGETTE CELIS User: LUZ MUNSON documented in this encounter Plan of Treatment Upcoming Encounters Date Type Department Care Team (Late st Contact Info) Description 02/08/2024 9:00 AM EDT Office Visit Cardiology, [place] [address] [place] [address] Phan Hannah DO [address] [place] [address] 02/08/2024 2:00 PM EDT [facility] [address] [place] [address] Pharmacist1, [facility] [address] [place] [address] 02/09/2024 7:40 AM EDT Office Visit Pulmonary Medicine, [facility] [address] [place] [address] Eduardo Christine MD [address] [place] [address] 02/09/2024 11:40 AM EDT Office Visit Sleep Disorders Medicine [facility] [place] [address] [place] [phone] Debo Romero MD [address] [facility] [place] [address] 02/23/2024 2:40 PM EDT Office Visit Nephrology, [facility] [address] [facility] [place] [address] Rene Mo MD [address] [facility] [place] [address] 04/19/2024 9:40 AM EST Office Visit General Internal Medicine [facility] [place] [address] [facility] [place] [address] Bridgette Celis MD [address] [facility] [place] [address] Health Maintenance Due Date Last Done Comments [...] Monitoring 12/22/2024 12/23/2023 CKD HGB USE SMARTSET 31553 12/28/202412/28, 12/29/2023, 08/15/2023, Additional history exists CKD PHOS USE SMARTSET 25246 12/28/2024 0711/2023, 01/17/2023, 12/25/2019 DTaP,Tdap,and Td Vaccines (3 - [...] Agents on File Name Relationship Healthcare Agent [facility] Tomi Rao Adult Child Health Care Agen t (per Health Care Power of Bulldozer Operator document) Care Teams Manager Manufacturing Relationship Specialty Start Date End Date Bridgette Celis MD [address] [place] [address] PCP - General Internal Medicine 09/30/23 documented as of this encounter
--- OUTSIDE RECORDS SUMMARY | 2024-02-06 10:56 | External Medical Summary | Summary of Care ---
Author Name Unknown Organization [facility] Address [address] [place] [address] Phone [phone] Care Team Providers Care Putty And Patch Worker Name Role Phone Bridgette Celis MD Primary Care Provider + Reason for Visit * Reason Onset Date Comments Test Results 12/31/2023 Encounter Details Date Type Department Care Team (Late st Contact Info) Description 12/31/2023 Telephone General Internal Medicine [facility] [address] [facility] [place] [address] Bridgette Celis MD [facility] [address] Test Results Allergies No known active allergiesdocumented as of this encounter (statuses as of 12/31/2023) Medications Medication Sig Dispensed Refills Start Date End Date Status OneTouch Delica Plus [id number] Use as directed. 400 Each 3 10/01/2023 [...] diastolic heart failure (HCC),Coronary artery disease involving [place] coronary artery of [place] heart without angina pectoris,HTN, goal below 140/90,RADHA [...] as of this encounter (statuses as of 12/31/2023) Active Problems Problem Noted Date Diagnosed Date Body mass index (BMI) of 45.0 to 49.9 in adult 0 10/26/2023 Overview: Per Obesity protocol - Per Obesity protocol Cerebrovascular disease, arteriosclerotic, post- stroke 08/27/2023 Diabetic ulcer of left heel associated with type 2 diabetes mellitus 08/27/2023 HTN, goal below 130/80 08/27/2023 Pulmonary HTN 01/17/2023 Coronary artery disease invo lving [place] coronary artery of [place] heart without angina pectoris 01/17/2023 Chronic diastolic heart failure 01/17/2023 Lymphedema 01/17/2023 HTN, goal below 140/90 01/17/2023 Type 2 diabetes mellitus wit h hemoglobin A1c goal of less than 7.5% 01/17/2023 Diabetic retinopathy associa rishi with type 2 diabetes mellitus 01/17/2023 Hidradenitis suppurativa 01/17/2023 RADHA (obstructive sleep apnea) 01/17/2023 Kidney disease, chronic, stage III (GFR 30-59 ml /min) 01/17/2023 BERAT (generalized anxiety disorder) 01/17/2023 Recurrent major depressive disorder, in full rem ission 01/17/2023 documented as of this encounter (statuses as of 12/31/2023) Resolved Problems Problem Noted Date Diagnosed Date Resolved Date Stage 3a chronic kidney disease 08/27/2023 09/24/2023 Body mass index (BMI) of 40. 0 to 44.9 in adult 04/27/2023 10/28/2023 Overview: Per Obesity protocol documented as of this encounter (statuses as of 12/31/2023) Immunizations Name Administration Dates Next Due Pneumococcal Conjugate Vacci ne, 20-valent ([id number]) 03/23/2023 Pneumococcal Polysaccharide PPV23 (Pneumovax) 01/06/2008 Seasonal [...] - Maria Teresa Hubbard MED ASSIST - 12/31/2023 11:46 AM EDT Patient aware and verbalized understanding * Telephone Encounter - Maria Teresa Hubbard MED ASSIST - 12/31/2023 11:44 AM EDT ----- Message from Bridgette Celis MD sent at 12/30/2023 5:45 PM EDT ----- Labs shows low but improvement in iron. Albumin is low. Work on slightly high protein. Kidney function is still high but better than before. Continue current diuretic Torsemide and keep all the visits with specialists as we discussed at thevisit. documented in this encounter Plan of Treatment Upcoming Encounters Date Type Department Care Team (Late st Contact Info) Description 02/08/2024 9:00 AM EDT Office Visit Cardiology, [place] [address] [place] [address] Phan Hannah DO [address] [place] [address] 02/08/2024 2:00 PM EDT Office Visit Pharmacy, [facility] [address] [facility] [place] [address] Pharmacist1, [facility] 200 [facility] [place] [address] 02/09/2024 7:40 AM EDT Office Visit Pulmonary Medicine, [facility] [address] [place] [address] Eduardo Christine MD [address] [place] [address] 02/09/2024 11:40 AM EDT Office Visit Sleep Disorders, [facility] [address] [place] [address] Debo Romero MD [address] [place] [address] 02/23/2024 2:40 PM EDT Office Visit Nephrology, [facility] [address] [place] [address] Rene Mo MD [address] [facility] [place] [address] 04/19/2024 9:40 AM EST Office Visit General Internal Medicine [facility] [address] [facility] [place] [address] Bridgette Celis MD [address] [facility] [place] [address] Health Maintenance Due Date Last Done Comments [...] Monitoring 12/22/2024 12/23/2023 CKD HGB USE SMARTSET 71005 12/28/202412/28, 12/29/2023, 08/15/2023, Additional history exists CKD PHOS USE SMARTSET 54417 12/28/202412/13, 01/17/2023, 12/25/2019 DTaP,Tdap,and Td Vaccines (3 [...] Agen t (per Health Care Power of Certified Juvenile Probation Officer document) Care Teams Putty And Patch Worker Relationship Specialty Start Date End Date Bridgette Celis MD 200 [place] [address] PCP - General Internal Medicine 09/30/23 documented as of this encounter
--- OUTSIDE RECORDS SUMMARY | 2024-02-06 10:56 | External Medical Summary ---
Author Name Unknown Address Unknown Organization K01:LABORATORY [facility] [place] - [address] [address] Laboratory Report Ordering Provider Test Date Status RODOLFO VANESSA 12/29/2023 16:48:42 Final Observation Date Value Abnormality Reference (Units ) Status ALT (Alanine aminotransferase) 12/29/2023 16:48:42 32 10-35 (U/L) Final Performing Location LABORATORY [facility] - [address] [place] [address]
--- OUTSIDE RECORDS SUMMARY | 2024-02-06 10:56 | External Medical Summary | Summary of Care ---
Author Name Unknown Organization [facility] Address [address] [place] [address] Phone [phone] Care Team Providers Care Tank Charger Name Role Phone Bridgette Celis MD Primary Care Provider + Reason for Referral * Evaluate & Treat - Unlimited Visits (Within 10 days (routine)) - Authorized Specialty Diagnoses / Procedures Referred By Contac t Referred To Contact Pharmacist / Pharmacy Diagnoses Type 2 diabetes mellitus with hemoglobin A1c goal of less than 7.5% (HCC) Chronic diastolic heart failure (HCC) Coronary artery disease involving quileute coronary artery of quileute heart without angina pectoris Bridgette Celis MD [address] [place] [id number] Referral ID Status Reason Start Date Expiration Date Visits Requested Visits Authorized [id number] Authorized Specialty Services Required 12/29/2023 06/26/2024 99 99 Question Answer Referral Priority Within 10 days (routine) Where should this appointment be scheduled? [facility] Referring Provider Role: Primary Care Reason for Referral: DM Target A1c: < 7 Comments Pharmacist Medication Therapy Management: Minimum frequency patient should be seen in person for medication management: as appropriate per clinical condition and patient status By my signature, I understand that my patient Maricel Flores will have her medication therapy managed by the [facility] Medication Therapy Disease Management Clinic ([facility]) per established policies, procedures, and protocols. I also certify that this referral may serve as an initiation of service for the management of drug therapy in the above noted patient. [facility] providers will be responsible for scheduling patient visits, obtaining appropriate laboratory studies, and adjusting medication management therapy per patient's need, in addition to those roles spelled out in the clinic policy, procedures, and drug management protocols. I understand that the service provided by the [facility] Clinic is voluntary and have informed patient that they can refuse the service at their discretion. I am aware that the [facility] Clinic will provide me with a copy of the patient encounter via my [employer]. I authorize the [facility] to carry out these activities on my behalf. I consider this program to be a necessary part of the patient's medical care. Bridgette Celis MD * Evaluate & Treat - Unlimited Visits (Within 10 days (routine)) - Authorized Specialty Diagnoses / Procedures Referred By Contac t Referred To Contact Sleep Medicine / Sleep Disorders Diagnoses Pulmonary nodule Pulmonary HTN (HCC) Bridgette Celis MD [address] [facility] [place] [address] Referral ID Status Reason Start Date Expiration Date Visits Requested Visits Authorized [id number] Authorized Specialty Services Required 12/29/2023 2 2 Question Answer Referral Priority Within 10 days (routine) Where should this appointment be scheduled? [facility] SLEEP MED ADULT REFERRAL Sleep Apnea Testing and Management Does the patient snore and/or gasp at night or has been told they stop breathing at night? Yes, document patient's symptoms in progress note Comments Please eval. Hx of CHF, HTN, Hypoxia and uses oxygen 24x7. Thanks. * Evaluate & Treat - Unlimited Visits (Within 10 days (routine)) - Authorized Specialty Diagnoses / Procedures Referred By Contact Referred To Contact Cardiovascular Medicine / Cardiology Diagnoses Pulmonary nodule Pulmonary HTN (HCC) Bridgette Celis MD [address] [place] [address] Referral ID Status Reason Start Date Expiration Date Visits Requested Visits Authorized [id number] Authorized Specialty Services Required 12/29/[phone] Question Answer Referral Priority Within 10 days (routine) Where should this appointment be scheduled? [facility] To which of the following clinics are you referring your patient? General Cardiology Clinic Comments Hx of CHF, DM, Pulm HTN,acute on chronic heart failure with preserved function. Recent hospital admission and had CHF exaberation, acute on chronic resp failure. Please eval. Thanks. Reason for Visit * Reason Comments Follow Up Outpatient Testing Encounter Details Date Type Department Care Team (Latest Contact Info) Description 12/29/2023 3:40 PM EDT Office Visit General Internal Medicine [facility] [place] [address] [facility] [address] [place] [address] Bridgette Celis MD [address] [facility] [place] [address] Pulmonary nodule*; Type 2 diabetes mellitus with hemoglobin A1c goal of less than 7.5% ([facility]); Chronic diastolic heart failure ([facility]); Coronary artery disease involving quileute coronary artery of quileute heart without angina pectoris; HTN, goal below 140/90; RADHA (obstructive sleep apnea); Pulmonary HTN ([facility]); Screening for deficiency anemia; Stage 3a chronic kidney disease ([facility]); Uncontrolled type 2 diabetes mellitus with hyperglycemia ([facility]); Dyslipidemia, goal LDL below 70 Allergies No known active allergiesdocumented as of this encounter (statuses as of 12/30/2023) Medications Medication Sig Dispensed Refills Start Date End Date Status OneTouch Delica Plus [id number] Use as directed. 400 Each 3 10/01/2023 Active OneTouch Ultra In Vitro Strip (Glucose Blood)Indications:T ype 2 diabetes mellitus with hemoglobin A1c goal of less than 7.5% ([facility]) Use to check blood sugar up to 4 times daily 400 Strip 3 10/13/2023 Active Torsemide 20 MG Oral Tablet (Demadex)Indication [...] Oral Tablet Extended Release 24 Hour (toPROL XL)Indications:Credit Control Administrator yaw diastolic heart failure (HCC) Take 1 Tablet by mouth in the morning. 30 Tablet 11 12/29/2023 Active Rosuvastatin Calcium 20 MG Oral Tablet (Crestor) Take 1 Tablet by mouth in the morning. 90 Tablet 3 12/29/2023 Active Sildenafil Citrate 20 MG Oral Tablet (Revatio)Indication s:Chronic diastolic heart failure (HCC),Coronary artery disease involving quileute coronary artery of quileute heart without angina pectoris,HTN, goal below 140/90,RADHA (obstructive sleep apnea) Take 1 Tablet by mouth in the morning and 1 Tablet at noon and 1 Tablet before bedtime. 90 Tablet 2 12/29/2023 Active Metoprolol Succinate ER 100 MG Oral Tablet Extended Release 24 Hour (toPROL XL)Indications:Credit Control Administrator yaw diastolic heart failure (HCC) Take 1 Tablet by mouth in the morning. 30 Tablet 11 03/16/2023 12/29/2023 Discontinued (Refill) Lisinopril 2.5 MG Oral Tablet (Prinivil)Indicatio ns:Chronic diastolic heart failure (HCC),Coronary artery disease involving quileute coronary artery of quileute heart without angina pectoris,Uncontroll ed type 2 diabetes mellitus with hyperglycemia (HCC),RADHA (obstructive sleep apnea) Take 4 Tablets by mouth in the morning. 90 Tablet 3 03/23/2023 12/29/2023 Discontinued (Patient preference/d iscontinuati on) Lokelma 10 GM Oral Packet Take 1 Packet by mouth in the morning. 08/20/2023 12/29/2023 Discontinued (Patient preference/d iscontinuati on) Lantus SoloStar 100 UNIT/ML Subcutaneous Solution Pen-injectorIndicat ions:Type 2 diabetes mellitus with hemoglobin A1c goal of less than 7.5% (HCC) Inject 25 Units under the skin in the morning. 15 mL 3 10/13/2023 12/29/2023 Discontinued (Refill) Sildenafil Citrate 20 MG Oral Tablet (Revatio)Indication s:Coronary artery disease involving quileute coronary artery of quileute heart without angina pectoris,HTN, goal below 140/90,RADHA (obstructive sleep apnea),Chronic diastolic heart failure (HCC) Take 1 Tablet by mouth in the morning and 1 Tablet at noon and 1 Tablet before bedtime. 90 Tablet 2 10/13/2023 12/29/2023 Discontinued (Refill) amLODIPine Besylate 10 MG Oral Tablet (Norvasc) Take 1 Tablet by mouth in the morning. 90 Tablet 3 10/26/2023 12/29/2023 Discontinued (Refill) Rosuvastatin Calcium 20 MG Oral Tablet (Crestor) Take 1 Tablet by mouth in the morning. 90 Tablet 3 10/26/2023 12/29/2023 Discontinued (Refill) Escitalopram Oxalate 20 MG Oral Tablet (Lexapro) Take 1 Tablet by mouth in the morning. 90 Tablet 3 10/26/2023 12/29/2023 Discontinued (Refill) hydrALAZINE HCl 100 MG Oral Tablet Take 1 Tablet by mouth in the morning and 1 Tablet at noon and 1 Tablet before bedtime. 90 Tablet 11/27/2023 12/29/2023 Discontinued (Refill) Spironolactone 25 MG Oral Tablet (Aldactone)Indicati ons:Chronic diastolic heart failure (HCC) Take 1 Tablet by mouth in the morning. 90 Tablet 3 12/14/2023 12/30/2023 Discontinued (Patient preference/d iscontinuati on) Hospital, Clinic, or Other Facility Administered Medication [...] as of this encounter (statuses as of 12/30/2023) Active Problems Problem Noted Date Diagnosed Date [...] as of this encounter (statuses as of 12/30/2023) Resolved Problems Problem Noted Date Diagnosed Date Resolved Date Stage 3a chronic kidney disease 08/27/2023 09/24/2023 Body mass index (BMI) of 40. 0 to 44.9 in adult 04/27/2023 10/28/2023 Overview: Per Obesity protocol documented as of this encounter (statuses as of 12/30/2023) Immunizations Name Administration Dates Next Due Pneumococcal Conjugate Vacci ne, 20-valent ([id number]) 03/23/2023 Pneumococcal Polysaccharide PPV23 (Pneumovax) 01/06/2008 Seasonal [...] Sign Reading Time Taken Comments Blood Pressure 124/60 12/29/2023 3:43 PM EDT Pulse 58 12/29/2023 3:43 PM EDT Temperature 36.1 C (96.9 F) 12/29/2023 3:43 PM ED T Respiratory Rate 18 12/29/2023 3:43 PM EDT Oxygen Saturation 90% 12/29/2023 3:43 PM EDT O2 2L/min Inhaled Oxygen Concentration - - Weight 114.3 kg (251 lb 14. 4 oz) 12/29/2023 3:43 PM EDT Height 154.9 cm (5' 1") 12/29/2023 3:43 PM EDT Body Mass Index 47.6 12/29/2023 3:43 PM EDT documented in this encounter Progress Notes * Bridgette Celis MD - 12/29/2023 3:58 PM EDT HPI: Maricel Flores is a 63 year old female with a history of type 2 diabetes mellitus, history of diabetic ulcer of the left heel, obstructive sleep apnea, nocturnal hypoxemia, pulmonary hypertension, chronic diastolic CHF, history of CAD, status post stent, hypertension, history of CVA, obesity, CKD stage3, history of hyperkalemia,history of depression, history of lymphedema, generalized anxiety disorder, hypothyroidism, history of noncompliance with all the medications, history of visual disturbancefrom bilateral macular degeneration and she lives at home with her son and [id number] Chief Complaint Patient presents with Follow Up Patient is here for the recheck. Chart reviewed with the patient including current meds, last labs and HM. Pt is here for the hospital follow up. Accompained by her daughter in law .Chart reviewed from the hospital including admission note, H and P, consult notes, labs, EKG, imaging and discharge note including discharge meds. Patient states she is feeling better since went back home. Pt was admitted to the hospital on 11/16/23 and was discharged on 11/26/23 . Previous admission this year at [facility] was 09/24/23 to 09/28/23 for acute on chronic diastolic heart failure, possible pneumonia. Admission Diagnosis : Acute hypoxic respiratory failure, acute on chronic heart failure with a preserved ejection fraction, CKD. As per the review of the record and discussion with the patient and family she was out of her home torsemide for 2 days due to pharmacy being out and could not get the medication. Last echo from 07/30/2023 showed EF of 60 to 65%, grade 1 diastolic dysfunction, left atrium moderately dilated, [id number] MR and elevated RVSP at 40 to 50 mm of Hg. Chest x-ray showed cardiomegaly with a prominence of pulmonary vasculature. Patient did have layering pleural effusion with dependent consolidation at that time. We this hospital admission the patient did require BiPAP and eventually she was put on 2 L of nasaloxygen. Patient did receive IV Lasix and then it was transitioned back to home torsemide. Cardiology and Pulmonary was consulted for further evaluation. Looking at significant fall risk and as no clear arrhythmia were confirmed patient was not anticoagulated while in the hospital. Patient does have history of obstructive sleep apnea but she is not compliant with using the mask. We discussed about seeing Sleep Medicine provider and also pulmonary follow-up in addition to PFT. Looking at her worsening renal panel patient was advised to continue holding lisinopril and Lasix and was recommended to continue torsemide current dosage as an outpatient. Patient was discharged home on torsemide 40 mg in the morning and 20 mg in the afternoon she was also advised to continue oxygen 2 L at rest and 4 L with activity. Pt has been followed up by embedded case manager and specialists. At today's visit and since going back home after discharge patient is overall feeling better than before and she denies any shortness of breath, chest pain, fever, chills, cough. We discussed about getting repeat chest x-ray today along with blood work. Patient Active Problem List Diagnosis Pulmonary HTN (HCC) Coronary artery disease involving quileute coronary artery of quileute heart without angina pectoris Chronic diastolic heart failure ([facility]) Lymphedema HTN, goal below 140/90 Type 2 diabetes mellitus with hemoglobin A1c goal of less than 7.5% ([facility]) Diabetic retinopathy associated with type 2 diabetes mellitus ([facility]) Hidradenitis suppurativa RADHA (obstructive sleep apnea) Kidney disease, chronic, stage III (GFR 30-59 ml/min) ([facility]) BERTA (generalized anxiety disorder) Recurrent major depressive disorder, in full remission ([facility]) Cerebrovascular disease, arteriosclerotic, post-stroke Diabetic ulcer of left heel associated with type 2 diabetes mellitus ([facility]) HTN, goal below 130/80 Body mass index (BMI) of 45.0 to 49.9 in adult ([facility]) Current Outpatient Medications Medication Sig Dispense Refill Metoprolol Succinate ER 100 MG Oral Tablet Extended Release 24 Hour (toPROL XL) Take 1 Tablet by mouth in the morning. 30 Tablet 11 Lisinopril 2.5 MG Oral Tablet (Prinivil) Take 4 Tablets by mouth in the morning. (Patient taking differently: Take 4 Tablets by mouth in the morning. Patient has only been getting 2 tabs daily.) 90 Tablet 3 OneTouch Delica Plus [id number] Use as directed. 400 Each 3 Lantus SoloStar 100 UNIT/ML Subcutaneous Solution Pen-injector Inject 25 Units under the skin in the morning. 15 mL 3 OneTouch Ultra In Vitro Strip (Glucose Blood) Use to check blood sugar up to 4 times daily 400 Strip 3 Sildenafil Citrate 20 MG Oral Tablet (Revatio) Take 1 Tablet by mouth in the morning and 1 Tablet at noon and 1 Tablet before bedtime. 90 Tablet 2 amLODIPine Besylate 10 MG Oral Tablet (Norvasc) Take 1 Tablet by mouth in the morning. 90 Tablet 3 Rosuvastatin Calcium 20 MG Oral Tablet (Crestor) Take 1 Tablet by mouth in the morning. 90 Tablet 3 Escitalopram Oxalate 20 MG Oral Tablet (Lexapro) Take 1 Tablet by mouth in the morning. 90 Tablet 3 hydrALAZINE HCl 100 MG Oral Tablet Take 1 Tablet by mouth in the morning and 1 Tablet at noon and 1Tablet before bedtime. 90 Tablet 0 Spironolactone 25 MG Oral Tablet (Aldactone) Take 1 Tablet by mouth in the morning. 90 Tablet 3 Torsemide 20 MG Oral Tablet (Demadex) Take 40 mg (2 tablets) by mouth in the morning and 20 mg ( 1 tablet) in the afternoon. 90 Tablet 0 Aspirin 81 MG Oral Capsule Take 81 mg by mouth in the morning. Current Facility-Administered Medications Medication Dose Route Frequency Provider Last Rate Last Admin Albuterol Sulfate (Proventil) (2.5 MG/3ML) 0.083% inhalation solution 2.5 mg 2.5 mg Nebulizer Eduardo Cuevas MD Albuterol Sulfate (Proventil) (5 MG/ML) 0.5% *conc* inhalation solution 2.5 mg 2.5 mg Nebulizer Eduardo Duggan MD The patient's medication list was reviewed and updated as needed. Review of patient's allergies indicates: No Known Allergies Past Medical History: Diagnosis Date Anxiety Congestive heart failure (HCC) Depression Diabetes mellitus (HCC) Hypertension Social History Socioeconomic History Marital status: Tobacco Use Smoking status: Never Smokeless tobacco: Never Vaping Use Vaping status: Never Used Substance and Sexual Activity Alcohol use: Not Currently Drug use: Never Sexual activity: Not Currently Social Determinants of Health Financial Resource Strain: Low Risk (12/23/2023) Financial Resource Strain Do you have any trouble paying for your medications, or do you think you might in the future? (Adult - for ages 18 years and over): No Food Insecurity: No Food Insecurity (12/23/2023) Food Insecurity Do you need food for this week? (Adult - for ages 18 years and over): No Transportation Needs: No Transportation Needs (12/23/2023) Transportation Needs Do you have trouble getting a ride to medical visits or work? (Adult - for ages 18 years and over):Never True Has lack of transportation kept you from medical appointments, meetings, work, or from getting things needed for daily living? Check all that apply. (Adult - for ages 18 years and over): No Social Connections: Socially Integrated (12/23/2023) Social Connections How often do you feel lonely or isolated from those around you? (Adult - for ages 18 years and over): Never Housing Stability: Low Risk (12/23/2023) Housing Stability Do you currently live in a custodial or have no steady place to sleep at night? (Adult - for ages 18 years and over): No Do you think you are at risk of becoming homeless? (Adult - for ages 18 years and over): No Are you homeless or worried that you might be in the future? (Adult - for ages 18 years and over): No Family History Problem Relation Name Age of Onset Heart disease Father Heart Attack at 56 Coarctation of the aorta Son Cancer Mother Thyroid Stroke Mother x's 3 All system negative except as per hpi. OBJECTIVE: BP 124/60 | Pulse 58 | Temp 36.1 C (96.9 F) | Resp 18 | Ht 1.549 m (5' 1") | Wt 114.3 kg (251 lb 14.4 oz) | SpO2 90% Comment: O2 2L/min | BMI 47.60 kg/m | BSA 2.22 m PHYSICAL EXAM: HEENT: PERRLA, EOMI, anicteric sclera, b/l tympanic membrane is pearly white, no erythema, no pharyngeal erythema, no lymphadenopathy, neck supple CVS: RRR, no murmurs, rubs or gallops, s1 s 2normal. RESP: clear to auscultation, no wheezing or crackles ABD: soft, NT/ND EXT: Bilateral trace to 1+ edema, no cyanosis, peripheral pulses palpable bilaterally No large joint swelling, no redness, range of motion normal. Skin normal. Gait walks with a walker at home. Mood stable No focal weakness ASSESSMENT AND PLAN: Pulmonary nodule (Primary) - CARDIOLOGY REFERRAL OP - SLEEP MEDICINE REFERRAL OP - XR CHEST 2 VIEWS Keep follow up with Pulmonary. Denies any symptoms today. Type 2 diabetes mellitus with hemoglobin A1c goal of less than 7.5% ([facility]) - Lantus SoloStar 100 UNIT/ML Subcutaneous Solution Pen-injector; Inject 25 Units under the skin inthe morning. - PHARMACIST MEDS THERAPY MGMT REFERRAL OP Chronic diastolic heart failure (HCC) - Metoprolol Succinate ER 100 MG Oral Tablet Extended Release 24 Hour (toPROL XL); Take 1 Tablet bymouth in the morning. - Sildenafil Citrate 20 MG Oral Tablet (Revatio); Take 1 Tablet by mouth in the morning and 1 Tablet at noon and 1 Tablet before bedtime. - PHARMACIST MEDS THERAPY MGMT REFERRAL OP Continue torsemide 20 mg tablet 2 pills in the morning and 1 in the afternoon. Patient was advised to hold Aldactone, Lasix and lisinopril looking at the renal panel. Coronary artery disease involving quileute coronary artery of quileute heart without angina pectoris - Sildenafil Citrate 20 MG Oral Tablet (Revatio); Take 1 Tablet by mouth in the morning and 1 Tablet at noon and 1 Tablet before bedtime. - PHARMACIST MEDS THERAPY MGMT REFERRAL OP Continue current dose of Crestor and baby aspirin. HTN, goal below 140/90 - Sildenafil Citrate 20 MG Oral Tablet (Revatio); Take 1 Tablet by mouth in the morning and 1 Tablet at noon and 1 Tablet before bedtime. - BASIC METABOLIC PANEL; Future; Expected date: 12/29/2023 Continue current dose of metoprolol 100 mg tablet 1 in the morning, hydralazine 100 mg tablet 1 pill 3 times a day, amlodipine 10 mg orally once a day. RADHA (obstructive sleep apnea) - Sildenafil Citrate 20 MG Oral Tablet (Revatio); Take 1 Tablet by mouth in the morning and 1 Tablet at noon and 1 Tablet before bedtime. Pulmonary HTN (HCC) - CARDIOLOGY REFERRAL OP - SLEEP MEDICINE REFERRAL OP - XR CHEST 2 VIEWS Continue current dose of sildenafil 20 mg 3 times a day. Screening for deficiency anemia - CBC WITH WBC DIFFERENTIAL; Future; Expected date: 12/29/2023 Other orders - amLODIPine Besylate 10 MG Oral Tablet (Norvasc); Take 1 Tablet by mouth in the morning. - Escitalopram Oxalate 20 MG Oral Tablet (Lexapro); Take 1 Tablet by mouth in the morning. - hydrALAZINE HCl 100 MG Oral Tablet; Take 1 Tablet by mouth in the morning and 1 Tablet at noon and 1 Tablet before bedtime. - Rosuvastatin Calcium 20 MG Oral Tablet (Crestor); Take 1 Tablet by mouth in the morning. Bridgette Ceils MD documented in this encounter Nursing Notes * Liz Sheridan LPN - 12/29/2023 3:46 PM EDT The patient has been properly identified by confirmation of name and date of . Chief Complaint Patient presents with Follow Up documented in this encounter Miscellaneous Notes * Result Encounter Note - Bridgette Celis MD - 12/30/2023 5:45 PM EDT Labs shows low but improvement in iron. [...] 02/08/2024 9:00 AM EDT Office Visit Cardiology, [place] [address] [facility] [address] Phan Hannah DO [address] [place] [address] 02/08/2024 2:00 PM EDT Office Visit Pharmacy, [facility] [place] [address] [place] [address] Pharmacist1, [facility] [address] [place] [address] 02/09/2024 7:40 AM EDT Office Visit Pulmonary Medicine, [facility] [address] [facility] [place] [address] Eduardo Christine MD [facility] [address] 02/09/2024 11:40 AM EDT Office Visit Sleep Disorders, [facility] [address] [place] [address] Debo Romero MD [address] [place] [address] 02/23/2024 2:40 PM EDT Office Visit Nephrology, [facility] [address] [place] [address] Rene Mo MD [address] [place] [address] 04/19/2024 9:40 AM EST Office Visit General Internal Medicine [facility] [place] [address] [place] [address] Bridgette Celis MD [address] [place] [address] Scheduled Referrals Name Type Priority Associated Diagnoses Orde r Schedule CARDIOLOGY REFERRAL OP Referral Within 10 days (routine) Pulmonary nodule Pulmonary HTN (HCC) Ordered: 12/29/2023 SLEEP MEDICINE REFERRAL OP Referral Within 10 days (routine) Pulmonary nodule Pulmonary HTN (HCC) Ordered: 12/29/2023 PHARMACIST MEDS THERAPY MGMT REFERRAL OP Referral Within 10 days (routine) Type 2 diabetes mellitus with hemoglobin A1c goal of less than 7.5% (HCC) Chronic diastolic heart failure (HCC) Coronary artery disease involving quileute coronary artery of quileute heart without angina pectoris Ordered: 12/29/2023 Health Maintenance Due Date Last Done Comments [...] Monitoring 12/22/2024 12/23/2023 CKD HGB USE SMARTSET 59606 12/28/202412/28, 12/29/2023, 08/15/2023, Additional history exists CKD PHOS USE SMARTSET [id number] 12/28/2024 07/1 11/2023, 01/17/2023, 12/25/2019 DTaP,Tdap,and Td Vaccines (3 - [...] Procedure Name Priority Date/Time Associated Diagnosis Comments XR CHEST 2 VIEWS Routine 12/29/2023 5:19 PM EDT Pulmonary nodule Pulmonary HTN (HCC) DIFFERENTIAL, AUTOMATED Routine 12/29/2023 4:48 PM EDT Screening for deficiency anemia HEMOGLOBIN A1C Routine 12/29/2023 4:48 PM EDT Stage 3a chronic kidney disease (HCC) Uncontrolled type 2 diabetes mellitus with hyperglycemia (HCC) RENAL FUNCTION PANEL STAT 12/29/2023 4:48 PM EDT Uncontrolled type 2 diabetes mellitus with hyperglycemia (HCC) CBC Routine 12/29/2023 4:48 PM EDT Screening for deficiency anemia ALT Routine 12/29/2023 4:48 PM EDT Coronary artery disease involving [place] coronary artery of quileute heart without angina pectoris Uncontrolled type 2 diabetes mellitus with hyperglycemia (HCC) Dyslipidemia, goal LDL below 70 CBC Routine 12/29/2023 4:48 PM EDT Screening for deficiency anemia documented in this encounter Results * XR CHEST 2 VIEWS (12/29/2023 5:19 PM EDT) Anatomical Region Laterality Modality Chest Computed Radiogr aphy 12/30/2023 4:36 AM EDT Impressions 12/30/2023 4:34 AM EDT IMPRESSION Bilateral airspace opacities and small pleural effusions. Narrative 12/30/2023 4:34 AM EDT EXAM XR CHEST 2 VIEWS - 12/29/2023 5:19 pm HISTORY "f/u for CHF, pulm HTN. Had pleural effusion." TECHNIQUE Frontal and lateral views of the chest were obtained. COMPARISON None. FINDINGS There are airspace opacities in both mid to lower lungs and small amount of pleural fluid. No pneumothorax. Mild cardiomegaly. Procedure Note Dylon Celis MD - 12/30/2023 EXAM XR CHEST 2 VIEWS - 12/29/2023 5:19 pm HISTORY "f/u for CHF, pulm HTN. Had pleural effusion." TECHNIQUE Frontal and lateral views of the chest were obtained. COMPARISON None. FINDINGS There are airspace opacities in both mid to lower lungs and small amountof pleural fluid. No pneumothorax. Mild cardiomegaly. IMPRESSION IMPRESSION Bilateral airspace opacities and small pleural effusions. Bridgette Celis MD RADIOLOGY (RAD G ENERAL) * (ABNORMAL) DIFFERENTIAL, AUTOMATED (12/29/2023 4:48 PM EDT) WBC 10.18 4.00 - 10.80 K/uL 12/29/2023 10:40 PM EDT [facility] Neutrophils % 85.0(H) 40.0 - 75.0 % 12/29/2023 10:40 PM EDT [facility] Lymphocytes % 8.8(L) 18.0 - 42.0 % 12/29/2023 10:40 PM EDT [facility] Monocytes % 3.8 1.0 - 11.0 % 12/29/2023 10:40 PM EDT [facility] Eosinophils % 1.0 0.0 - 6.0 % 12/29/2023 10:40 PM EDT [facility] Basophils % 0.8 0.0 - 2.0 % 12/29/2023 10:40 PM EDT [facility] Immature Granulocytes % 0.6 0.0 - 2.0 % 12/29/2023 10:40 PM EDT [facility] Absolute Neutrophils 8.65(H) 1.80 - 7.70 K/uL 12/29/2023 10:40 PM EDT [facility] Absolute Lymphocytes 0.90(L) 1.00 - 4.80 K/ul 12/29/2023 10:40 PM EDT [facility] Absolute Monocytes 0.39 0.00 - 1.10 K/uL 12/29/2023 10:40 PM EDT [facility] Absolute Eosinophils 0.10 0.00 - 0.70 K/uL 12/29/2023 10:40 PM EDT [facility] Absolute Basophils 0.08 0.00 - 0.20 K/uL 12/29/2023 10:40 PM EDT [facility] Absolute Immature Granulocytes 0.06 0.00 - 0.20 K/uL 12/29/2023 10:40 PM EDT [facility] Blood Venous blood specimen / Unknown Venipuncture / Unknown 12/29/2023 4:48 PM EDT 12/29/2023 4:48 PM EDT Bridgette Celis MD LAB BLOOD ORDERA BLES [facility] [address] [place] [address] * (ABNORMAL) CBC (12/29/2023 4:48 PM EDT) WBC 10.18 4.00 - 10.80 K/uL 12/29/2023 10:40 PM EDT [facility] RBC 4.11 3.85 - 5.15 M/uL 12/29/2023 10:40 PM EDT [facility] HGB 10.6(L) 12.0 - 15.3 g/dL 12/29/2023 10:40 PM EDT [facility] HCT 33.9(L) 36.0 - 45.2 % 12/29/2023 10:40 PM EDT [facility] MCV 82.5 81.5 - 97.5 fL 12/29/2023 10:40 PM EDT [facility] MCH 25.8 27.0 - 34.0 pg 12/29/2023 10:40 PM EDT [facility] MCHC 31.3 32.0 - 36.0 g/dL 12/29/2023 10:40 PM EDT [facility] RDW 14.6 11.5 - 15.5 % 12/29/2023 10:40 PM EDT [facility] PLT 230 140 - 400 K/uL 12/29/2023 10:40 PM EDT [facility] [place] MPV 9.4 6.6 - 11.1 fL 12/29/2023 10:40 PM EDT [facility] [place] nRBCs 0 <=0 /100 WBCs 12/29/2023 10:40 PM EDT [facility] [place] Blood Venous blood specimen / Unknown Venipuncture / Unknown 12/29/2023 4:48 PM EDT 12/29/2023 4:48 PM EDT Bridgette Celis MD LAB BLOOD ORDERA BLES Performing Organization Address City/[facility]/ZIP Co de Phone Number [facility]AT[facility] [place] [address] [place] [address] * ALT (12/29/2023 4:48 PM EDT) ALT 32 10 - 35 U/L 12/29/2023 10:59 PM EDT [facility] [place] Blood Venous blood specimen / Unknown Venipuncture / Unknown 12/29/2023 4:48 PM EDT 12/29/2023 4:48 PM EDT Veronique Webb MD LAB BLOOD ORDERABLES Performing Organization Address [facility]/ZIP Co de Phone Number [facility] [place] [address] [place] [address] * (ABNORMAL) RENAL FUNCTION PANEL (12/29/2023 4:48 PM EDT) BUN 69(H) 6 - 20 mg/dL 12/29/2023 10:59 PM EDT LABORATORY C Creatinine 1.5(H) 0.5 - 1.0 mg/dL 12/29/2023 10:59 PM EDT [facility] [place] Estimated Glomerular Filtration Rate 39(L) >=60 mL/min 12/29/2023 10:59 PM EDT [facility] [place] Comment:eGFR is calculated b ased on the CKD-EPI 2020 equation Sodium 140 135 - 146 mmol/L 12/29/2023 10:59 PM EDT LABORATORY C Potassium 4.6 3.5 - 5.1 mmol/L 12/29/2023 10:59 PM EDT LABORATORY C Chloride 103 98 - 107 mmol/L 12/29/2023 10:59 PM EDT LABORATORY C CO2 24 22 - 32 mmol/L 12/29/2023 10:59 PM EDT LAB[facility]ATORY [facility] [place] Anion Gap 13 7 - 15 mmol/L 12/29/2023 10:59 PM EDT LAB[facility]ATORY [facility] [place] Glucose 165(H) 70 - 120 mg/dL 12/29/2023 10:59 PM EDT [facility] Calcium 10.1 8.4 - 10.2 mg/dL 12/29/2023 10:59 PM EDT LABORATORY C Albumin 3.7(L) 3.8 - 5.0 g/dL 12/29/2023 10:59 PM EDT LABORATORY C Phosphorus 3.9 2.5 - 4.8 mg/dL 12/29/2023 10:59 PM EDT LAB[facility]ATORY [facility] [place] Blood Venous blood specimen / Unknown Venipuncture / Unknown 12/29/2023 4:48 PM EDT 12/29/2023 4:48 PM EDT Veronique Webb MD LAB BLOOD ORDERABLES [facility]ATORY [facility] [place] [address] [place] [address] * (ABNORMAL) HEMOGLOBIN A1C (12/29/2023 4:48 PM EDT) Hemoglobin A1C 8.1(H) 4.0 - 5.6 % 12/30/2023 1:24 AM EDT [facility] [place] Comment:The use of HbA1c to monitor glycemic status is based on normal hemoglobin and HbA composition. This test should not be used in patients with abnormal hemoglobin that affects the half life of the red blood cell or the in vivo glycation rates. Estimated Average Glucose 186(H) <126 mg/dL 12/30/2023 1:24 AM EDT LAB[facility]ATORY [facility] [place] Blood Venous blood specimen / Unknown Venipuncture / Unknown 12/29/2023 4:48 PM EDT 12/29/2023 4:48 PM EDT Veronique Webb MD LAB BLOOD ORDERABLES [facility]ATORY [facility] [place] [address] [place] [address] documented in this encounter Visit Diagnoses Diagnosis Pulmonary nodule- Primary Solitary pulmonary nodule Type 2 diabetes mellitus with hemoglobin A1c goal of less than 7.5% (HCC) Chronic diastolic heart failure (HCC) Chronic diastolic heart failure Coronary artery disease involving [place] coronary artery of quileute heart without angina pectoris HTN, goal below 140/90 Unspecified essential hypertension RADHA (obstructive sleep apnea) Obstructive sleep apnea (adult) (pediatric) Pulmonary HTN (HCC) Other chronic pulmonary heart diseases Screening for deficiency anemia Screening for other and unspecified deficiency anemia Stage 3a chronic kidney disease (HCC) Uncontrolled type 2 diabetes mellitus with hyperglycemia (HCC) Dyslipidemia, goal LDL below 70 Other and unspecified hyperlipidemia documented in this encounter Advance Directives Healthcare Agents on File Name Relationship Healthcare Agent Relationshi p Communication Tomi Rao Adult Child Health Care Agen t (per Health Care Power of Tax Services Professional document) Care Teams Tank Charger Relationship Specialty Start Date End Date Bridgette Celis MD [address] [place] [address] PCP - General Internal Medicine 09/30/23 documented as of this encounter
--- OUTSIDE RECORDS SUMMARY | 2024-02-06 10:56 | External Medical Summary | Summary of Care ---
Author Name Unknown Organization [facility] Address [address] [place] [address] Phone [phone] Care Team Providers Care Turning Machine Operator Name Role Phone Bridgette Celis MD Primary Care Provider + Reason for Visit * Reason Onset Date Comments Medication Refill 12/09/2023 Encounter Details Date Type Department Care Team (Late st Contact Info) Description 12/09/2023 Refill General Internal Medicine [facility] [address] [facility] [place] [address] Bridgette Celis MD [address] [place] [address] Chronic diastolic heart failure (HCC) Allergies No known active allergiesdocumented as of this encounter (statuses as of 12/14/2023) Medications Medication Sig Dispensed Refills Start Date End Date Status Torsemide 20 MG Oral Tablet (Demadex)Indication s:Chronic diastolic heart failure (HCC) Take 2 Tablets by mouth in the morning and 2 Tablets before bedtime. 40 in the AM and 20 in the PM. 01/17/2023 Active Metoprolol Succinate ER 100 MG Oral Tablet Extended Release 24 Hour (toPROL XL)Indications:Camp Recreation Specialist yaw diastolic heart failure (HCC) Take 1 Tablet by mouth in the morning. 30 Tablet 11 03/16/2023 Active Lisinopril 2.5 MG Oral Tablet (Prinivil)Indicatio ns:Chronic diastolic heart failure (HCC),Coronary artery disease involving [place] coronary artery of [place] heart without angina pectoris,Uncontroll ed type 2 diabetes mellitus with hyperglycemia (HCC),RADHA (obstructive sleep apnea) Take 4 Tablets by mouth in the morning. 90 Tablet 3 03/23/2023 Active Lokelma 10 GM Oral Packet Take 1 Packet by mouth in the morning. 08/20/2023 Active OneTouch Delica Plus [id number] Use as directed. 400 Each 3 10/01/2023 [...] Oral Tablet (Revatio)Indication s:Coronary artery disease involving [place] coronary artery of [place] heart without angina pectoris,HTN, goal below 140/90,RADHA [...] 1 Tablet before bedtime. 90 Tablet 11/27/2023 12/27/2023 Active Spironolactone 25 MG Oral Tablet (Aldactone)Indicati ons:Chronic diastolic heart failure (HCC) Take 1 Tablet by mouth in the morning. 90 Tablet 3 12/14/2023 Active Spironolactone 25 MG Oral Tablet (Aldactone)Indicati ons:Chronic diastolic heart failure (HCC) Take 1 Tablet by mouth in the morning. 01/17/2023 12/09/2023 Discontinued (Refill) Hospital, Clinic, or Other Facility Administered Medication [...] as of this encounter (statuses as of 12/14/2023) Active Problems Problem Noted Date Diagnosed Date Body mass index (BMI) of 45.0 to 49.9 in adult 0 10/26/2023 Overview: Per Obesity protocol - Per Obesity protocol Cerebrovascular disease, arteriosclerotic, post- stroke 08/27/2023 Diabetic ulcer of left heel associated with type 2 diabetes mellitus 08/27/2023 HTN, goal below 130/80 08/27/2023 Pulmonary HTN 01/17/2023 Coronary artery disease invo lving [place] coronary artery of [place] heart without angina pectoris 01/17/2023 Chronic diastolic [...] as of this encounter (statuses as of 12/14/2023) Resolved Problems Problem Noted Date Diagnosed Date Resolved Date Stage 3a chronic kidney disease 08/27/2023 09/24/2023 Body mass index (BMI) of 40. 0 to 44.9 in adult 04/27/2023 10/28/2023 Overview: Per Obesity protocol documented as of this encounter (statuses as of 12/14/2023) Immunizations Name Administration Dates Next Due Pneumococcal Conjugate Vacci ne, 20-valent ([id number]) 03/23/2023 Pneumococcal Polysaccharide PPV23 (Pneumovax) 01/06/2008 Seasonal [...] money to buy more. Never true 09/07/19 Within the past 12 months, t he food you bought just didn't last and you didn't have money to get more. Never true 09/07/2023 Childcare Answer Date Recorded Do you feel overwhelmed with taking care of a child, family member or friend? No 09/07/2023 Does your family need help f inding childcare? (Household - for ages 0-17 years) Not on file 09/07/2023 Clothing Answer Date Recorded Have you been unable to get clothing when it was really needed? No 09/07/2023 Is your family able to get c lothes or diapers when needed? (Household - for ages 0-17 years) Not on file 09/07/2023 Personal Safety Answer Date Recorded Do you feel unsafe or have concerns for your saf ety? No 09/07/2023 Do you have concerns for you r family's safety? (Household - for ages 0-17 years) Not on file 09/07/2023 Utilities Answer Date Recorded Do you have trouble paying y our heating, water, or electric bill? No 09/07/2023 Is your family able to pay t he heat, water, or electric bill? (Household - for ages 0-17 years) Not on file 09/07/2023 Does your family have access to good internet? (Household - for ages 0-17 years) Not on file 09/07/2023 Employment Status Answer Date Recorded Are you unemployed or without regular income? No 09/07/2023 Does the household have a re gular source of income? (Household - for ages 0-17 years) Not on file 09/07/2023 Social Connections Answer Date Recorded How often do you feel lonely or isolated from th ose around you? Rarely 09/07/2023 Financial Resource Strain Answer Date R ecorded Do you have any trouble payi ng for your medications, or do you think you might in the future? No 09/07/2023 Does your family have troubl e paying for medicine? (Household - for ages 0-17 years) Not on file 09/07/2023 Transportation Needs Answer Date Record ed READ ONLY Do you have troubl e getting a ride to medical visits or work? Never True 09/07/2023 Does your family have a hard time getting a ride to doctors visits? (Household - for ages 0-17 years) Not on file 09/07/2023 Has lack of transportation k ept you from medical appointments, meetings, work, or from getting things needed for daily living? Check all that apply. (Adult - for ages 18 years and over) Not on file 09/07/2023 Do you (or your family) have trouble finding or paying for a ride (transportation)? (Household - for ages 0-17 years) Not on file 09/07/2023 Housing Stability Answer Date Recorded Do you currently live in a s helter or have no steady place to sleep at night? No 09/07/2023 READ ONLY Do you think you a re at risk of becoming homeless? No 09/07/2023 Does your family worry about paying for your home or becoming homeless? (Household - for ages 0-17 years) Not on file 0 09/07/2023 Are you homeless or worried that you might be in the future? (Adult - for ages 18 years and over) Not on file Are you (or your family) mason eless or worried that you might be in the future? (Household - for ages 0-17 years) Not on file Food Insecurity Answer Date Recorded Do you need food for this week? No 09/07/2023 Are you able to get enough f ood for your family? (Household - for ages 0-17 years) Not on file 09/07/2023 Does your family need food t his week? (Household - for ages 0-17 years) Not on file 09/07/2023 Do you always have enough fo od for your family? (Household - for ages 0-17 years) Not on file 09/07/2023 Sex and Gender Information Value Date [...] PM EDT Office Visit [facility] [place] [address] [place] [address] Bridgette Celis MD [address] [place] [address] 04/19/2024 9:40 AM EST Office Visit General Internal Medicine Khai [place] [address] Bridgette Celis MD [address] [place] [address] Health Maintenance Due Date Last Done Comments [...] Ratio 01/18/2024 01/17/2023 CKD PHOS USE SMARTSET 49448 01/18/2024 01/17/2023, 0 12/25/2019 Influenza Vaccine (FLU shot) (#1) 2024 03/16/2020, 03/16/2020, 03/23/2019, Additional history exists Diabetic Foot Exam 03/23/2024 03/23/2023 GFR 04/13/2024 10/13/2023, 08/13, 08/15/2023, Additional history exists CKD HGB USE SMARTSET 91398 08/14/202408/14, 08/08/2023, 03/23/2023, Additional history exists Depression Monitoring 08/26/2024 08/27/2023 DTaP,Tdap,and Td Vaccines (3 - [...] t (per Health Care Power of Manager Cable document) Care Teams Turning Machine Operator Relationship Specialty Start Date End Date Bridgette Celis MD [address] [facility] [place] [address] PCP - General Internal Medicine 09/30/23 documented as of this encounter
--- OUTSIDE RECORDS SUMMARY | 2024-02-06 10:56 | External Medical Summary | Summary of Care ---
Author Name Unknown Organization [facility] Address [address] [place] [address] Phone [phone] Care Team Providers Care Bag Bundler Name Role Phone Bridgette Celis MD Primary Care Provider + Reason for Visit * Reason Onset Date Comments Referral 01/04/2024 Encounter Details Date Type Department Care Team ([facility] st Contact Info) Description 01/04/2024 New Patient Triage (IMAGING TECHNICIAN USE ONLY) Cardiology[address] [address] Elizabeth Pena, CHAIRMAN [employer] FOUNDER [address], [place] [id number] Referral Allergies No known active allergiesdocumented as of this encounter (statuses as of 01/06/2024) Medications Medication Sig Dispensed Refills Start Date End Date Status OneTouch Delica Plus [id number] Use as directed. 400 Each 3 10/01/2023 Active OneTouch Ultra In Vitro Strip (Glucose Blood)Indications:Type 2 diabetes mellitus with hemoglobin A1c goal of less than 7.5% ([facility]) Use to check blood sugar [...] diastolic heart failure (HCC),Coronary artery disease involving [place] coronary artery of [place] heart without angina pectoris,HTN, goal below 140/90,RADHA [...] as of this encounter (statuses as of 01/06/2024) Active Problems Problem Noted Date Diagnosed Date Body mass index (BMI) of 45.0 to 49.9 in adult 0 10/26/2023 Overview: Per Obesity protocol - Per Obesity protocol Cerebrovascular disease, arteriosclerotic, post- stroke 08/27/2023 Diabetic ulcer of left heel associated with type 2 diabetes mellitus 08/27/2023 HTN, goal below 130/80 08/27/2023 Pulmonary HTN 01/17/2023 Coronary artery disease invo lving [place] coronary artery of [place] heart without angina pectoris 01/17/2023 Chronic diastolic [...] as of this encounter (statuses as of 01/06/2024) Resolved Problems Problem Noted Date Diagnosed Date Resolved Date Stage 3a chronic kidney disease 08/27/2023 09/24/2023 Body mass index (BMI) of 40. 0 to 44.9 in adult 04/27/2023 10/28/2023 Overview: Per Obesity protocol documented as of this encounter (statuses as of 01/06/2024) Immunizations Name Administration Dates Next Due Pneumococcal Conjugate Vacci ne, 20-valent ([id number]) 03/23/2023 Pneumococcal Polysaccharide PPV23 (Pneumovax) 01/06/2008 Seasonal [...] as of this encounter Progress Notes * Johanna Egan CRNP - 01/06/2024 10:14 PM EDT Does patient need to be seen?: Yes Modality: Office visit Urgency: Within 30 days (routine) Discussed care plan with patient or proxy?: No, VM was left for patient Communicated with patient on Date (mm/dd/yyyy): 01/04/2024 at Time ([facility]): 1109 63 year old female with hx of CHF exacerbation after running out of her Torsemide. Was admitted andseen by Dr. Amado at [facility]. She was to have ZIO which does not appear to have been done. She was also to have a initial hospital discharge/establish care appt November 2023, but no showed. Appropriate referral as patient clearly needs regular follow up/management of her CHF, but has increased non-compliance and no show rate. Thank you, TOÑO Winters Cardiology [facility] * Farzaneh Mason LPN - 01/04/2024 10:48 AM EDT Images from the original note were not included. New Patient Triage What is the diagnosis/reason for referral?: CHF, DM, Pulm HTN,acute on chronic heart failure with preserved function Enter order ID here: [id number] Specialty specific documentation: Other Discussed care plan with patient or proxy?: Yes Unable to reach pt, is VM for "[facility] " secondary number in chart is not connected. Communicated with patient on Date (//yyy): 01/04/2024 at Time ([facility]): 1109 APPOINTMENT INFO: 02/08/2024 Dr Hannah INFO FROM CARDIAC REFERRAL Referred by Bridgette Celis MD - Saw PCP for routine exam, PCP noted recent hospital admissions to [facility] most recent for chf because the pt ran out of torsemide In review of the chart it appears the a ZIO was ordered d/t CVA, during the [facility] admission in Jul 2023 but I cannot find record of one the chart. Pt did have an appt scheduled with Dr Villegas in November but No Showed. Some notes from [facility] Cardio consult by Dr Amado 11/18/2023 EKG/ECHO/ZIO/CARDIAC TESTING ZIO still not completed MEDICATIONS Current Outpatient Medications Medication Sig Dispense Refill OneTouch Delica Plus [id number] Use as directed. 400 Each 3 OneTouch Ultra In Vitro Strip (Glucose Blood) Use to check blood sugar up to 4 times daily 400 Strip 3 Torsemide 20 MG Oral Tablet (Demadex) Take 40 mg (2 tablets) by mouth in the morning and 20 mg ( 1 tablet) in the afternoon. 90 Tablet 0 Aspirin 81 MG Oral Capsule Take 81 mg by mouth in the morning. amLODIPine Besylate [...] and 1Tablet before bedtime. 90 Tablet 0 Lantus SoloStar 100 UNIT/ML Subcutaneous Solution Pen-injector Inject 25 Units under the skin in the morning. 15 mL 3 Metoprolol Succinate ER 100 MG Oral Tablet Extended Release 24 Hour (toPROL XL) Take 1 Tablet by mouth in the morning. 30 Tablet 11 Rosuvastatin Calcium 20 MG Oral Tablet (Crestor) Take 1 Tablet by mouth in the morning. 90 Tablet 3 Sildenafil Citrate 20 MG Oral Tablet (Revatio) Take 1 Tablet by mouth in the morning and 1 Tablet at noon and 1 Tablet before bedtime. 90 Tablet 2 Current Facility-Administered Medications Medication Dose Route Frequency Provider Last Rate Last Admin Albuterol Sulfate (Proventil) (2.5 MG/3ML) 0.083% inhalation solution 2.5 mg 2.5 mg Nebulizer Eduardo Cuevas MD Albuterol Sulfate (Proventil) (5 MG/ML) 0.5% *conc* inhalation solution 2.5 mg 2.5 mg Nebulizer Eduardo Duggan MD documented in this encounter Plan of Treatment Upcoming Encounters Date Type Department Care Team (Late st Contact Info) Description 02/08/2024 9:00 AM EDT Office Visit Cardiology, [place] [address] [place] [address] Phan Hannah, [address] [place] [address] 02/08/2024 2:00 PM EDT [facility] [place] [address] [place] [address] Pharmacist1, [facility] [address] [place] [address] 02/09/2024 7:40 AM EDT Office Visit Pulmonary Medicine, [facility] [address] [facility] [place] [address] Eduardo Christine MD [address] [facility] [place] [address] 02/09/2024 11:40 AM EDT Office Visit Sleep Disorders, [facility] [address] [place] [address] Debo Romero MD [address] [place] [address] 02/23/2024 2:40 PM EDT Office Visit Nephrology, [facility] [address] [place] [address] Rene Mo MD [address] [place] [address] 04/19/2024 9:40 AM EST Office Visit General Internal Medicine [facility] [place] [address] [place] [address] Bridgette Celis MD [address] [place] [address] Health Maintenance Due Date Last Done Comments [...] 08/27/2023, Additional history exists HbA1c 06/30/2024 12/29/2023, 080 10/2022, 12/17/2021, Additional history exists Depression Monitoring 12/22/2024 12/23/2023 CKD HGB USE SMARTSET 70579 12/28/202412/28, 12/29/2023, 08/15/2023, Additional history exists CKD PHOS USE SMARTSET 22402 12/28/202412/13, 01/17/2023, 12/25/2019 DTaP,Tdap,and Td Vaccines (3 [...] Agen t (per Health Care Power of Flanger document) Care Teams Bag Bundler Relationship Specialty Start Date End Date Bridgette Celis MD [address] [place] [address] PCP - General Internal Medicine 09/30/23 documented as of this encounter
--- OUTSIDE RECORDS SUMMARY | 2024-02-06 10:56 | External Medical Summary | Summary of Care ---
Author Name Unknown Organization [facility] Address [address] [place] [address] Phone [phone] Care Team Providers Care Financial Advisor Name Role Phone Bridgette Celis MD Primary Care Provider + Reason for Visit * Reason Comments Vomiting Outpatient Testing Encounter Details Date Type Department Care Team (Late st Contact Info) Description 12/29/2023 4:40 PM EDT Laboratory Laboratory [facility] [address] [place] [address] [facility] [address] [facility] [place] [address] Arrived Allergies No known active allergiesdocumented as of this encounter (statuses as of 12/29/2023) Medications Medication Sig Dispensed Refills Start Date End Date Status OneTouch Delica Plus [id number] Use as directed. 400 Each 3 10/01/2023 Active OneTouch Ultra In Vitro Strip (Glucose Blood)Indications:Type 2 diabetes mellitus with hemoglobin A1c goal of less than 7.5% ([facility]) Use to check blood sugar up to 4 times daily 400 Strip 3 10/13/2023 Active Spironolactone 25 MG Oral Tablet (Aldactone)Indications :Chronic diastolic heart failure (HCC) Take 1 Tablet by mouth in the morning. 90 Tablet 3 12/14/2023 Active Torsemide 20 MG Oral Tablet (Demadex)Indications:C [...] the skin in the morning. 15 mL 12/29/2023 Active Metoprolol Succinate ER 100 MG Oral Tablet Extended Release 24 Hour (toPROL XL)Indications:Chronic diastolic heart failure (HCC) Take 1 Tablet by mouth in the morning. 30 Tablet 11 12/29/2023 Active Rosuvastatin Calcium 20 MG Oral Tablet (Crestor) Take 1 Tablet by mouth in the morning. 90 Tablet 12/29/2023 Active Sildenafil Citrate 20 MG Oral Tablet (Revatio)Indications:C hronic diastolic heart failure (HCC),Coronary artery disease involving [place] coronary artery of [place] heart without angina pectoris,HTN, goal below 140/90,RADHA [...] as of this encounter (statuses as of 12/29/2023) Active Problems Problem Noted Date Diagnosed Date Body mass index (BMI) of 45.0 to 49.9 in adult 0 10/26/2023 Overview: Per Obesity protocol - Per Obesity protocol Cerebrovascular disease, arteriosclerotic, post- stroke 08/27/2023 Diabetic ulcer of left heel associated with type 2 diabetes mellitus 08/27/2023 HTN, goal below 130/80 08/27/2023 Pulmonary HTN 01/17/2023 Coronary artery disease invo lving [place] coronary artery of [place] heart without angina pectoris 01/17/2023 Chronic diastolic [...] as of this encounter (statuses as of 12/29/2023) Resolved Problems Problem Noted Date Diagnosed Date Resolved Date Stage 3a chronic kidney disease 08/27/2023 09/24/2023 Body mass index (BMI) of 40. 0 to 44.9 in adult 04/27/2023 10/28/2023 Overview: Per Obesity protocol documented as of this encounter (statuses as of 12/29/2023) Immunizations Name Administration Dates Next Due Pneumococcal Conjugate Vacci ne, 20-valent ([id number]) 03/23/2023 Pneumococcal Polysaccharide PPV23 (Pneumovax) 01/06/2008 Seasonal [...] Care Team (Late st Contact Info) Description 04/19/2024 9:40 AM EST Office Visit General Internal Medicine [facility] [address] [place] [address] Bridgette Celis MD 200 [facility] [place] [address] Health Maintenance Due Date Last Done Comments [...] Ratio 01/18/2024 01/17/2023 CKD PHOS USE SMARTSET 16402 01/18/2024 01/17/2023, 0 12/25/2019 Influenza Vaccine (FLU shot) (#1) 2024 03/16/2020, 03/16/2020, 03/23/2019, Additional history exists Diabetic Foot Exam 03/23/2024 03/23/2023 GFR 04/13/2024 10/13/2023, 0309/2023, 08/15/2023, Additional history exists CKD HGB USE SMARTSET 28006 08/14/202408/14, 08/08/2023, 03/23/2023, Additional history exists Depression [...] Agen t (per Health Care Power of Project Leader document) Care Teams Financial Advisor Relationship Specialty Start Date End Date Bridgette Celis MD 200 [facility] [place] [address] PCP - General Internal Medicine 09/30/23 documented as of this encounter
--- OUTSIDE RECORDS SUMMARY | 2024-02-06 10:57 | External Medical Summary | Summary of Care ---
Author Name Unknown Organization [facility] Address [address] [place] [address] Phone [phone] Care Team Providers Care Project/Production Manager Imaging Name Role Phone Unavailable Primary Care Provider Unavailabl e Encounter Details Date Type Department Care Team (Latest Contact Info) Description 02/22/2019 11:00 AM EDT - 02/22/2019 11:59 PM EDT Hospital Encounter Radiology Film File [address] [place], [place] [phone] Discharge Disposition: Home - Self Care Allergies No known active allergiesdocumented as of this encounter (statuses as of 11/24/2023) Medications No known medicationsdocumented as of this encounter (statuses as of 11/24/2023) Active Problems Problem Noted Date Diagnosed Date Body mass index (BMI) of 45.0 to 49.9 in adult 0 10/26/2023 Overview: Per Obesity protocol - Per Obesity protocol Cerebrovascular disease, arteriosclerotic, post- stroke 08/27/2023 Diabetic ulcer of left heel associated with type 2 diabetes mellitus 08/27/2023 HTN, goal below 130/80 08/27/2023 Pulmonary HTN 01/17/2023 Coronary artery disease invo lving [place] coronary artery of [place] heart without angina pectoris 01/17/2023 Chronic diastolic [...] as of this encounter (statuses as of 11/24/2023) Resolved Problems Problem Noted Date Diagnosed Date Resolved Date Stage 3a chronic kidney disease 08/27/2023 09/24/2023 Body mass index (BMI) of 40. 0 to 44.9 in adult 04/27/2023 10/28/2023 Overview: Per Obesity protocol documented as of this encounter (statuses as of 11/24/2023) Immunizations Name Administration Dates Next Due Pneumococcal Polysaccharide PPV23 (Pneumovax) 01/06/2008 Seasonal Influenza, Split, I IV3, With Preserve, Inj 04/19/2018,03/09/2017,04/23/2015,05/01 TDAP (age 10 and older)(Boostrix) 08/28/2006 documented as of this encounter Social History Tobacco Use Types Packs/Day Years Used Date Smoking Tobacco: Never Assessed PHQ-2 Answer Date Recorded PHQ Adult Total [...] Care Team (Late st Contact Info) Description 11/26/2023 12:30 PM EDT Cardiac Studies Cardiac Studies [place] [place] [address] 11/30/2023 12:00 PM EDT Office Visit Pulmonary Medicine, [address] [place] [address] Eduardo Christine MD [address] [place] [address] 12/29/2023 3:40 PM EDT Office Visit General Internal Medicine [facility] [address] [place] [address] Bridgette Celis MD [address] [place] [address] 04/19/2024 9:40 AM EST Office Visit General Internal Medicine [facility] [address] [place], [place] [address] Bridgette Celsi MD 200 [facility] [place], [place] [address] Health Maintenance Due Date Last Done Comments [...] Ratio 01/18/2024 01/17/2023 CKD PHOS USE SMARTSET 60148 01/18/2024 01/17/2023, 0 12/25/2019 Influenza Vaccine (FLU shot) (Season Ended) 2024 03/16/2020, 03/16/2020, 03/23/2019, Additional history exists Diabetic Foot Exam 03/23/2024 03/23/2023 GFR 04/13/2024 10/13/2023, 08/13, 08/15/2023, Additional history exists CKD HGB USE SMARTSET 04071 08/14/202408/14, 08/08/2023, 03/23/2023, Additional history exists Depression [...] - CT (IMAGES ONLY, NO REPORT) Routine 02/22/2019 11:00 AM EDT documented in this encounter Results * RADIOLOGY EXAM - CT (IMAGES ONLY, NO REPORT) (02/22/2019 11:00 AM EDT) 02/22/2019 11:0 0 AM EDT Narrative Scheduling, Silent - 11/23/2023 11:12 AM EDT This is an imaging study not interpreted or resulted by a [facility] or [facility] contracted radiologist. Eduardo Christine MD RAD CT documented in this encounter Advance Directives Healthcare Agents on File Name Relationship Healthcare Agent Relationshi p Communication Tomi Rao Adult Child Health Care Agen t (per Health Care Power of Land Manager document)
--- OUTSIDE RECORDS SUMMARY | 2024-02-06 10:57 | External Medical Summary | Summary of Care ---
Author Name Unknown Organization [facility] Address [address] [place] [address] Phone [phone] Care Team Providers Care Venue Manager Name Role Phone Unavailable Primary Care Provider Unavailabl e Encounter Details Date Type Department Care Team (Latest Contact Info) Description 07/21/2020 2:35 PM EST - 07/21/2020 11:59 PM EST Hospital Encounter Radiology Film File [address] [place], [place] [phone] Discharge Disposition: Home - Self Care Allergies No known active allergiesdocumented as of this encounter (statuses as of 12/12/2023) Medications No known medicationsdocumented as of this encounter (statuses as of 12/12/2023) Active Problems Problem Noted Date Diagnosed Date Body mass index (BMI) of 45.0 to 49.9 in adult 0 10/26/2023 Overview: Per Obesity protocol - Per Obesity protocol Cerebrovascular disease, arteriosclerotic, post- stroke 08/27/2023 Diabetic ulcer of left heel associated with type 2 diabetes mellitus 08/27/2023 HTN, goal below 130/80 08/27/2023 Pulmonary HTN 01/17/2023 Coronary artery disease invo lving [place] coronary artery of [place] heart without angina pectoris 01/17/2023 Chronic diastolic [...] as of this encounter (statuses as of 12/12/2023) Resolved Problems Problem Noted Date Diagnosed Date Resolved Date Stage 3a chronic kidney disease 08/27/2023 09/24/2023 Body mass index (BMI) of 40. 0 to 44.9 in adult 04/27/2023 10/28/2023 Overview: Per Obesity protocol documented as of this encounter (statuses as of 12/12/2023) Immunizations Name Administration Dates Next Due Pneumococcal Polysaccharide PPV23 (Pneumovax) 01/06/2008 Seasonal Influenza, Quadriva lent, No Preserve, IM 03/16/2020 Seasonal Influenza, Split, I IV3, With Preserve, Inj 03/16/2020,03/23/2019,04/19/2018,03/09,04/23/2015,05/01/2008 TDAP (age 10 and older)(Boostrix) 08/28/2006 documented [...] 09/07/2023 Does the household have a re lar source of income? (Household - for ages [...] Office Visit General Internal Medicine [facility] [address] [place] [address] Bridgette Celis MD [address] [place] [address] 04/19/2024 9:40 AM EST Office Visit General Internal Medicine [place] [address] Bridgette Celis MD [address] [place] [address] Health Maintenance Due Date Last Done Comments [...] Ratio 01/18/2024 01/17/2023 CKD PHOS USE SMARTSET 23982 01/18/2024 01/17/2023, 0 12/25/2019 Influenza Vaccine (FLU shot) (Season Ended) 2024 03/16/2020, 03/16/2020, 03/23/2019, Additional history exists Diabetic Foot Exam 03/23/2024 03/23/2023 GFR 04/13/2024 10/13/2023, 08/13, 08/15/2023, Additional history exists CKD HGB USE SMARTSET 19299 08/14/202408/14, 08/08/2023, 03/23/2023, Additional history exists Depression [...] Date/Time Associated Diagnosis Comments RADIOLOGY EXAM - GENERAL RAD (IMAGES ONLY,NO REPORT) Routine 07/21/2020 2:35 PM EST documented in this encounter Results * RADIOLOGY EXAM - GENERAL RAD (IMAGES ONLY,NO REPORT) (07/21/2020 2:35 PM EST) 07/21/2020 2:32 PM EST Narrative Scheduling, Silent - 12/11/2023 2:22 PM EDT This is an imaging study not interpreted or resulted by a [facility] or [facility] contracted radiologist. Bridgette Celis MD RADIOLOGY (RAD G ENERAL) documented in this encounter Advance Directives Healthcare Agents on File Name Relationship Healthcare Agent [facility] p Communication Tomi Rao Adult Child Health Care [place] t (per Health Care Power of Overhead Cleaner document)
--- OUTSIDE RECORDS SUMMARY | 2024-02-06 10:57 | External Medical Summary | Summary of Care ---
Author Name Unknown Organization [facility] Address [address] [place] [address] Phone [phone] Care Team Providers Care Salt Washer Harvesting Station Name Role Phone Unavailable Primary Care Provider Unavailabl e Encounter Details Date Type Department Care Team (Latest Contact Info) Description 09/13/2018 3:50 PM EDT - 09/13/2018 11:59 PM EDT Hospital Encounter Radiology Film File [address] [place], [place] [phone] Discharge Disposition: Home - Self Care Allergies [...] HTN 01/17/2023 Coronary artery disease invo lving [place] coronary artery of [place] heart without angina pectoris 01/17/2023 Chronic diastolic [...] 12:30 PM EDT Cardiac Studies Cardiac Studies [place] [place] [address] 11/30/2023 12:00 PM EDT Office Visit Pulmonary Medicine, [address] [place] [address] Eduardo Christine MD [address] [place] [address] 12/29/2023 3:40 PM EDT Office Visit General Internal Medicine [facility] [address] [place] [address] Bridgette Celis MD [address] [place] [address] 04/19/2024 9:40 AM EST Office Visit General Internal Medicine [facility] [address] [place], [place] [address] Bridgette Celis MD 200 [facility] [place], [place] [address] Health Maintenance Due Date Last Done Comments [...] Ratio 01/18/2024 01/17/2023 CKD PHOS USE SMARTSET 56585 01/18/2024 01/17/2023, 0 12/25/2019 Influenza Vaccine (FLU shot) (Season Ended) 2024 03/16/2020, 03/16/2020, 03/23/2019, Additional history exists Diabetic Foot Exam 03/23/2024 03/23/2023 GFR 04/13/2024 10/13/2023, 08/13, 08/15/2023, Additional history exists CKD HGB USE SMARTSET 99350 08/14/202408/14, 08/08/2023, 03/23/2023, Additional history exists Depression [...] - CT (IMAGES ONLY, NO REPORT) Routine 09/13/2018 3:50 PM EDT documented in this encounter Results * RADIOLOGY EXAM - CT (IMAGES ONLY, NO REPORT) (09/13/2018 3:50 PM EDT) 09/13/2018 3:49 PM EDT Narrative Scheduling, Silent - 11/23/2023 10:47 AM EDT This is an imaging study not interpreted or resulted by a [facility] or [facility] contracted radiologist. Eduardo Christine MD RAD CT documented in this encounter Advance Directives Healthcare Agents on File Name Relationship Healthcare Agent Relationshi p Communication Tomi Rao Adult Child Health Care Agen t (per Health Care Power of Security Technician document)
--- OUTSIDE RECORDS SUMMARY | 2024-02-06 10:57 | External Medical Summary | Summary of Care ---
Author Name Unknown Organization [facility] Address [address] [place] [address] Phone [phone] Care Team Providers Care Truck Loader Overhead Crane Name Role Phone Unavailable Primary Care Provider Unavailabl e Encounter Details Date Type Department Care Team (Latest Contact Info) Description 10/11/2018 1:20 PM EDT - 10/11/2018 11:59 PM EDT Hospital Encounter Radiology Film File [address] [place], [place] [phone] Discharge Disposition: Home - Self Care Allergies [...] HTN 01/17/2023 Coronary artery disease invo lving [place] coronary artery of [place] heart without angina pectoris 01/17/2023 Chronic diastolic [...] 12:30 PM EDT Cardiac Studies Cardiac Studies [place] [place] [address] 11/30/2023 12:00 PM EDT Office Visit Pulmonary Medicine, [address] [place] [address] Eduardo Christine MD [address] [place] [address] 12/29/2023 3:40 PM EDT Office Visit General Internal Medicine [facility] [address] [place] [address] Bridgette Celis MD [address] [place] [address] 04/19/2024 9:40 AM EST Office Visit General Internal Medicine [facility] [address] [place], [place] [address] Bridgette Celis MD 200 [facility] [place], [place] [address] Health Maintenance Due Date Last Done Comments [...] Ratio 01/18/2024 01/17/2023 CKD PHOS USE SMARTSET 93054 01/18/2024 01/17/2023, 0 12/25/2019 Influenza Vaccine (FLU shot) (Season Ended) 2024 03/16/2020, 03/16/2020, 03/23/2019, Additional history exists Diabetic Foot Exam 03/23/2024 03/23/2023 GFR 04/13/2024 10/13/2023, 08/13, 08/15/2023, Additional history exists CKD HGB USE SMARTSET 44703 08/14/202408/14, 08/08/2023, 03/23/2023, Additional history exists Depression [...] Date/Time Associated Diagnosis Comments RADIOLOGY EXAM - PET (IMAGES ONLY, NO REPORT) Routine 10/11/2018 1:20 PM EDT documented in this encounter Results * RADIOLOGY EXAM - PET (IMAGES ONLY, NO REPORT) (10/11/2018 1:20 PM EDT) 10/11/2018 1:20 PM EDT Narrative Scheduling, Silent - 11/23/2023 11:12 AM EDT This is an imaging study not interpreted or resulted by a [facility] or [facility] contracted radiologist. Eduardo Christine MD RAD NUCLEAR ME D documented in this encounter Advance Directives Healthcare Agents on File Name Relationship Healthcare Agent Relationshi p Communication Tomi Rao Adult Child Health Care Agen t (per Health Care Power of Merchant Seaman document)
--- OUTSIDE RECORDS SUMMARY | 2024-02-06 10:57 | External Medical Summary | Summary of Care ---
Author Name Unknown Organization [facility] Address [address] [facility] [place] [address] Phone [phone] Care Team Providers Care Tombstone Setter Name Role Phone Flory Celis MD Primary Care Provider + Reason for Visit * Reason Comments eRx-Medication Refill Encounter Details Date Type Department Care Team (Late st Contact Info) Description 11/26/2023 Refill General Internal Medicine [facility] [place] 200 [facility] [place] [address] Flory Celis MD 200 [facility] [place] [address] Allergies No known active allergiesdocumented as of this encounter (statuses as of 11/27/2023) Medications Medication Sig Dispensed Refills Start Date [...] Oral Tablet Extended Release 24 Hour (toPROL XL)Indications:Property Portfolio Officer yaw diastolic heart failure (HCC) Take 1 Tablet by mouth in the morning. 30 Tablet 11 03/16/2023 Active Lisinopril 2.5 MG Oral Tablet (Prinivil)Indicatio ns:Chronic diastolic heart failure (HCC),Coronary artery disease involving [place] coronary artery of [place] heart without angina pectoris,Uncontroll ed type 2 diabetes mellitus with hyperglycemia (HCC),RADHA (obstructive sleep apnea) Take 4 Tablets by mouth in the morning. 90 Tablet 3 03/23/2023 Active Lokelma 10 GM Oral Packet Take 1 Packet by mouth in the morning. 08/20/2023 Active OneTouch Delica Plus [id number] Use as directed. 400 Each 3 10/01/2023 [...] Oral Tablet (Revatio)Indication s:Coronary artery disease involving [place] coronary artery of [place] heart without angina pectoris,HTN, goal below 140/90,RADHA [...] 1 Tablet before bedtime. 90 Tablet 11/27/2023 4 Active hydrALAZINE HCl 100 MG Oral Tablet Take 1 Tablet by mouth in the morning and 1 Tablet at noon and 1 Tablet before bedtime. 90 Tablet 10/26/2023 4 Discontinued Hospital, Clinic, or Other Facility [...] as of this encounter (statuses as of 11/27/2023) Active Problems Problem Noted Date Diagnosed Date Body mass index (BMI) of 45.0 to 49.9 in adult 0 10/26/2023 Overview: Per Obesity protocol - Per Obesity protocol Cerebrovascular disease, arteriosclerotic, post- stroke 08/27/2023 Diabetic ulcer of left heel associated with type 2 diabetes mellitus 08/27/2023 HTN, goal below 130/80 08/27/2023 Pulmonary HTN 01/17/2023 Coronary artery disease invo lving [place] coronary artery of [place] heart without angina pectoris 01/17/2023 Chronic diastolic [...] as of this encounter (statuses as of 11/27/2023) Resolved Problems Problem Noted Date Diagnosed Date Resolved Date Stage 3a chronic kidney disease 08/27/2023 09/24/2023 Body mass index (BMI) of 40. 0 to 44.9 in adult 04/27/2023 10/28/2023 Overview: Per Obesity protocol documented as of this encounter (statuses as of 11/27/2023) Immunizations Name Administration Dates Next Due Pneumococcal Conjugate Vacci ne, 20-valent ([id number]) 03/23/2023 Pneumococcal Polysaccharide PPV23 (Pneumovax) 01/06/2008 Seasonal [...] Telephone Encounter - Flory Celis MD - 11/27/2023 4:05 PM EDTSigned Prescriptions: Disp Refills hydrALAZINE HCl 100 MG Oral Tablet 90 Tab*0 Sig: Take 1 Tablet by mouth in the morning and 1 Tablet at noon and 1 Tablet before bedtime. Authorizing Provider: FLORY CELIS * Telephone Encounter - Kimani Li RN - 11/27/2023 9:01 AM EDTPending Prescriptions: Disp Refills hydrALAZINE HCl 100 MG Oral Tablet [Pharma*90 Tab*0 Sig: Take 1 Tablet by mouth in the morning and 1 Tablet at noon and 1 Tablet before bedtime. * Telephone Encounter - Kimani Li RN - 11/27/2023 9:01 AM EDT Images from the original note were not included. Refill routed to provider for consideration. Provider to address: med Reason for Call: eRx-Medication Refill Contact: [facility] Contact Type: Medication Provider In-Basket: Yes Outcome: See above Face to face time spent with Patient (minutes): 0 Total Time including non face to face (minutes): 10 Kimani Li RN BSN JOVITA Primary Care Nurse Coordinator [facility] (Helping out) * Telephone Encounter - Roya Valadez - 11/26/2023 7:05 PM EDTPending Prescriptions: Disp Refills hydrALAZINE HCl 100 MG Oral Tablet [Pharma*90 Tab*0 Sig: Take 1Tablet by mouth in the morning and 1 Tablet at noon and 1 Tablet before bedtime. documented in this encounter Plan of Treatment Upcoming Encounters Date Type Department Care Team (Late st Contact Info) Description 11/30/2023 12:00 PM EDT Office Visit Pulmonary Medicine, [facility] [address] [place] [address] Eduardo Christine MD [address] [facility] [place] [address] 12/01/2023 11:00 AM EDT Office Visit General Internal Medicine [facility] [place] [address] Ramiro Desai, [address] [place] [address] 12/29/2023 3:40 PM EDT Office Visit General Internal Medicine [facility] [address] [place] [address] Flory Celis MD [facility] [place] [address] 04/19/2024 9:40 AM EST Office Visit General Internal Medicine [facility] [address] [place] [address] [address] Flory Cleis MD 200 [facility] [place], [place] [address] Health Maintenance Due Date Last Done Comments [...] Ratio 01/18/2024 01/17/2023 CKD PHOS USE SMARTSET 62488 01/18/2024 01/17/2023, 0 12/25/2019 Influenza Vaccine (FLU shot) (Season Ended) 2024 03/16/2020, 03/16/2020, 03/23/2019, Additional history exists Diabetic Foot Exam 03/23/2024 03/23/2023 GFR 04/13/2024 10/13/2023, 08/13, 08/15/2023, Additional history exists CKD HGB USE SMARTSET 38665 08/14/202408/14, 08/08/2023, 03/23/2023, Additional history exists Depression [...] Agen t (per Health Care Power of Enrollment Processor document) Care Teams Tombstone Setter Relationship Specialty Start Date End Date Flory Celis MD [address] [place] [address] PCP - General Internal Medicine 09/30/23 documented as of this encounter
--- OUTSIDE RECORDS SUMMARY | 2024-02-06 10:57 | External Medical Summary | Summary of Care ---
Author Name Unknown Organization [facility] Address [address] [place] [facility] [place] [address] Phone [phone] Care Team Providers Care Yard Coupler Name Role Phone Bridgette Celis MD Primary Care Provider + Reason for Visit * Reason Comments eRx-Medication Refill Encounter Details Date Type Department Care Team (Late st Contact Info) Description 11/17/2023 Refill General Internal Medicine [facility] [place] [address] [facility] [place] [address] Bridgette Celis MD [address] [facility] [place] [address] Chronic diastolic heart failure (HCC) Allergies No known active allergiesdocumented as of this encounter (statuses as of 11/18/2023) Medications Medication Sig Dispensed Refills Start Date [...] 03/16/2023 Active Lisinopril 2.5 MG Oral Tablet (Prinivil)Indications :Chronic diastolic heart failure (HCC),Coronary artery disease involving minto coronary artery of minto heart without angina pectoris,Uncontrolled type 2 diabetes mellitus with hyperglycemia (HCC),RADAH (obstructive sleep apnea) Take 4 Tablets by mouth in the morning. 90 Tablet 3 03/23/2023 Active Lokelma 10 GM Oral Packet Take 1 Packet by mouth in the morning. 08/20/2023 Active OneTouch Delica Plus [id number] Use as directed. 400 Each 3 10/01/2023 Active Lantus SoloStar 100 UNIT/ML Subcutaneous Solution Pen-injectorIndicatio ns:Type 2 diabetes mellitus with hemoglobin A1c goal of less than 7.5% ([facility]) Inject 25 Units under the skin in the morning. 15 mL 3 10/13/2023 Active OneTouch Ultra In Vitro Strip (Glucose Blood)Indications:Typ e 2 diabetes mellitus with hemoglobin A1c goal of less than 7.5% ([facility]) Use to check blood sugar up to 4 times daily 400 Strip 3 10/13/2023 Active Sildenafil Citrate 20 MG Oral Tablet (Revatio)Indications: Coronary artery disease involving minto coronary artery of minto heart without angina pectoris,HTN, goal below 140/90,RADHA [...] hemoglobin A1c goal of less than 7.5% ([facility]) 2.5 mg NEBULIZER PRN 10/28/2023 10/27/2024 Acti ve Albuterol Sulfate (Proventil) (5 MG/ML) 0.5% *conc* inhalation solution 2.5 mgIndications:Pulmonary HTN (HCC),Type 2 diabetes mellitus with hemoglobin A1c goal of less than 7.5% (HCC) 2.5 mg NEBULIZER PRN 10/28/2023 10/27/2024 Acti ve documented as of this encounter (statuses as of 11/18/2023) Active Problems Problem Noted Date Diagnosed Date Body mass index (BMI) of 45.0 to 49.9 in adult 0 10/26/2023 Overview: Per Obesity protocol - Per Obesity protocol Cerebrovascular disease, arteriosclerotic, post- stroke 08/27/2023 Diabetic ulcer of left heel associated with type 2 diabetes mellitus 08/27/2023 HTN, goal below 130/80 08/27/2023 Pulmonary HTN 01/17/2023 Coronary artery disease invo lving minto coronary artery of minto heart without angina pectoris 01/17/2023 Chronic diastolic [...] as of this encounter (statuses as of 11/18/2023) Resolved Problems Problem Noted Date Diagnosed Date Resolved Date Stage 3a chronic kidney disease 08/27/2023 09/24/2023 Body mass index (BMI) of 40. 0 to 44.9 in adult 04/27/2023 10/28/2023 Overview: Per Obesity protocol documented as of this encounter (statuses as of 11/18/2023) Immunizations Name Administration Dates Next Due Pneumococcal Conjugate Vacci ne, 20-valent ([id number]) 03/23/2023 Pneumococcal Polysaccharide PPV23 (Pneumovax) 01/06/2008 Seasonal [...] encounter Miscellaneous Notes * Telephone Encounter - Tashi Pantoja RPh - 11/18/2023 3:43 PM EDTRefused Prescriptions: Disp Refills Torsemide 20 MG Oral Tablet (Demadex) 60 Tab*0 Sig: TAKE 2 TABLETS BY MOUTH ONCE DAILYRefused By: TASHI PANTOJA for Refusal: Dose needs clarification--- * Telephone Encounter - Tashi Pantoja RPh - 11/18/2023 3:40 PM EDT Request from pharmacy for torsemide 20mg to take 1 tablet daily RX reported historically on med list 01/17/23 as 2 tablets BID Tried calling patient [facility]. If patient or EC calls back to [facility] please transfer TO [facility]. Verify howpatient is currently taking the torsemide and route appropriately to provider. Thank you, Tashi Pantoja, PharmD Clinical Pharmacist [facility] ([facility]) 11/18/23 3:42 PM [phone] documented in this encounter Plan of Treatment Upcoming Encounters Date Type Department Care Team (Late st Contact Info) Description 11/23/2023 9:30 AM EDT PulmDiagnostic Pulmonary Function Lab, [address] [place] [address] [facility], Pulm Function Room [address] [place], [place] [address] [address] 11/23/2023 10:00 AM EDT PulmDiagnostic Pulmonary Function Lab, [address] [address] [facility], Pulm Function Room [address] [place], [place] [address] [address] 11/26/2023 12:30 PM EDT Cardiac Studies Cardiac Studies [address] [place] [address] 11/30/2023 12:00 PM EDT Office Visit Pulmonary Medicine, [facility] [address] [facility] [place] [address] Eduardo Christine MD [address] [place] [address] 12/29/2023 3:40 PM EDT Office Visit General Internal Medicine [facility] [address] [facility] [address] [place], [place] [address] Bridgette Celis MD [address] [facility] [place], [place] [address] 04/19/2024 9:40 AM EST Office Visit General Internal Medicine [facility] [place] [address] [place] [address] Bridgette Celis MD [address] [facility] [address] [place], [place] [address] Health Maintenance Due Date Last Done Comments [...] Ratio 01/18/2024 01/17/2023 CKD PHOS USE SMARTSET 10571 01/18/2024 01/17/2023, 0 12/25/2019 Influenza Vaccine (FLU shot) (Season Ended) 2024 03/16/2020, 03/16/2020, 03/23/2019, Additional history exists Diabetic Foot Exam 03/23/2024 03/23/2023 GFR 04/13/2024 10/13/2023, 08/13, 08/15/2023, Additional history exists CKD HGB USE SMARTSET 82178 08/14/202408/14, 08/08/2023, 03/23/2023, Additional history exists DTaP,Tdap,and [...] Agen t (per Health Care Power of Skating Rink Manager document) Care Teams Yard Coupler Relationship Specialty Start Date End Date Bridgette Celis MD 200 [facility] [place] [address] PCP - General Internal Medicine 09/30/23 documented as of this encounter
--- OUTSIDE RECORDS SUMMARY | 2024-02-06 10:57 | External Medical Summary | Summary of Care ---
Author Name Unknown Organization [facility] Address [address] [place] [address] Phone [phone] Care Team Providers Care Color Strainer Name Role Phone Bridgette Celis MD Primary Care Provider + Encounter Details Date Type Department Care Team ([facility] st Contact Info) Description 11/20/2023 Result Scan Unspecified Department <No scans attached> Allergies No known active allergiesdocumented as of this encounter (statuses as of 11/23/2023) Medications Medication Sig Dispensed Refills Start Date [...] diastolic heart failure (HCC),Coronary artery disease involving [place] coronary artery of [place] heart without angina pectoris,Uncontrolled type 2 diabetes mellitus with hyperglycemia (HCC),RADHA (obstructive sleep apnea) Take 4 Tablets by mouth in the morning. 90 Tablet 3 03/23/2023 Active Lokelma 10 GM Oral Packet Take 1 Packet by mouth in the morning. 08/20/2023 Active OneTouch Delica Plus [id number] Use as directed. 400 Each 3 10/01/2023 Active Lantus SoloStar 100 UNIT/ML Subcutaneous Solution Pen-injectorIndicatio ns:Type 2 diabetes mellitus with hemoglobin A1c goal of less than 7.5% ([facility]) Inject 25 Units under the skin in the morning. 15 mL 3 10/13/2023 Active OneTouch Ultra In Vitro Strip (Glucose Blood)Indications:Typ e 2 diabetes mellitus with hemoglobin A1c goal of less than 7.5% (HCC) Use to check blood sugar up to 4 times daily 400 Strip 3 10/13/2023 Active Sildenafil Citrate 20 MG Oral Tablet (Revatio)Indications: Coronary artery disease involving [place] coronary artery of [place] heart without angina pectoris,HTN, goal below 140/90,RADHA [...] as of this encounter (statuses as of 11/23/2023) Active Problems Problem Noted Date Diagnosed Date Body mass index (BMI) of 45.0 to 49.9 in adult 0 10/26/2023 Overview: Per Obesity protocol - Per Obesity protocol Cerebrovascular disease, arteriosclerotic, post- stroke 08/27/2023 Diabetic ulcer of left heel associated with type 2 diabetes mellitus 08/27/2023 HTN, goal below 130/80 08/27/2023 Pulmonary HTN 01/17/2023 Coronary artery disease invo lving [place] coronary artery of [place] heart without angina pectoris 01/17/2023 Chronic diastolic [...] as of this encounter (statuses as of 11/23/2023) Resolved Problems Problem Noted Date Diagnosed Date Resolved Date Stage 3a chronic kidney disease 08/27/2023 09/24/2023 Body mass index (BMI) of 40. 0 to 44.9 in adult 04/27/2023 10/28/2023 Overview: Per Obesity protocol documented as of this encounter (statuses as of 11/23/2023) Immunizations Name Administration Dates Next Due Pneumococcal Conjugate Vacci ne, 20-valent ([id number]) 03/23/2023 Pneumococcal Polysaccharide PPV23 (Pneumovax) 01/06/2008 Seasonal [...] AM EDT PulmDiagnostic Pulmonary Function Lab, [facility] [address] [facility] [place] [address] [facility], Pulm Function Room 1 [address] [place] [address] 11/23/2023 10:00 AM EDT PulmDiagnostic Pulmonary Function Lab, [facility] [address] [place] [address] [facility], Pulm Function Room 2 [address] [facility] [place] [address] 11/26/2023 12:30 PM EDT Cardiac Studies Cardiac Studies [address] [place] [address] 11/30/2023 12:00 PM EDT Office Visit Pulmonary Medicine, [address] [place] [address] Eduardo Christine MD [address] [place] [address] 12/29/2023 3:40 PM EDT Office Visit [facility] [address] [place] [address] Bridgette Celis MD [address] [place] [address] 04/19/2024 9:40 AM EST Office Visit [facility] [address] [place] [address] Bridgette Celis MD 200 [facility] [place] [address] Health Maintenance Due Date Last Done Comments [...] Ratio 01/18/2024 01/17/2023 CKD PHOS USE SMARTSET 33543 01/18/2024 01/17/2023, 0 12/25/2019 Influenza Vaccine (FLU shot) (Season Ended) 2024 03/16/2020, 03/16/2020, 03/23/2019, Additional history exists Diabetic Foot Exam 03/23/2024 03/23/2023 GFR 04/13/2024 10/13/2023, 08/13, 08/15/2023, Additional history exists CKD HGB USE SMARTSET 96955 08/14/202408/14, 08/08/2023, 03/23/2023, Additional history exists DTaP,Tdap,and [...] Date/Time Associated Diagnosis Comments RADIOLOGY SCANNED RESULT 11/20/2023 documented in this encounter Results * RADIOLOGY SCANNED RESULT (11/20/2023) 11/20/2023 No Physician Data Unknown DIAGNOSTIC RAD IOLOGY SERVICES documented in this encounter Advance Directives Healthcare Agents on File Name Relationship Healthcare Agent Relationshi p Communication Tomi Rao Adult Child Health Care Agen t (per Health Care Power of Ceramic Capacitor Processor document) Care Teams Color Strainer Relationship Specialty Start Date End Date Bridgette Celis MD [address] [place] [address] [place] [address] PCP - General Internal Medicine 09/30/23 documented as of this encounter
--- NOTE | 2024-02-06 11:28 | Emergency Department Note ---
Impression & Plan Acute hypoxemic respiratory failure, Pneumonia, Acute dyspnea, Acute kidney injury superimposed on chronic kidney disease ED Provider Note HISTORY OF PRESENT ILLNESS: Patient is a 63-year-old female presenting with shortness of breath and general malaise. Patient reports that yesterday she was feeling generally unwell and started become slightly short of breath. She wears 2 L at home at rest and up to 4 L when up and walking. She does not wear any CPAP at nighttime. Reports that overnight her shortness of breath significantly worsened. She had low oxygen saturations at home and with her increasing shortness of breath, decided to come to the emergency room. Denies any chest pain. Denies any DVT or PE history. She is on a baby aspirin daily. Denies any history of cardiac stents. She reports that she has gained about 3 pounds in the last 24 hours. Denies any abdominal pain, nausea or vomiting. ROS: as above PHYSICAL EXAM: Constitutional: Patient appears in no acute distress. Morbidly obese HENT: Head: Normocephalic and atraumatic. Eyes: EOMI, PERRL Mouth/Throat: Mucous membranes moist. Neck: Trachea midline. Neck supple. Cardiovascular: RRR, No murmurs, rubs or gallops. Intact distal pulses. Pulmonary/Chest: Patient is tachypneic. Coarse breath sounds bilaterally. Saturations of 78% with a good waveform. Patient was transition to an oxime mask and then to BiPAP. Abdominal: Abdomen soft, no tenderness, rebound or guarding. Musculoskeletal: No edema, tenderness or deformity noted. Skin: Warm and dry. No rash, erythema, pallor or cyanosis Psychiatric: Appropriate mood and affect for situation. Neurological: Alert and keenly responsive. CN II-XII grossly intact, moving all extremities equally and fully. MDM: - Vitals signs showed hypoxia - History obtained via patient. History as above. - Chronic conditions affecting care: HTN; HLD; CAD; CHF - Differential diagnoses include, but are not limited to: Congestive heart failure; acute coronary syndrome; COPD/asthma exacerbation; pulmonary edema; pulmonary embolism; pneumonia; pneumothorax; viral syndrome - Order placed for continuous cardiac monitoring. At this time, monitor showed rate of 55 bpm with normal sinus rhythm, per my interpretation. - External medical records reviewed. Discharge summary dated 11/26/2023 was reviewed. Patient was admitted that time for acute on chronic CHF and acute hypoxemic respiratory failure. - EKG interpreted by myself showed normal sinus rhythm. Rate 56 bpm. QT 446. Noted to have an incomplete left bundle branch block. No acute ischemic changes. - Laboratory workup interpreted by myself showed normal WBC; normal PT/INR; ASHLY on CKD (Cr 2.05); hypermagnesemia (Mg 2.5); elevated BNP (142); normal troponin; normal procalcitonin - UA negative for infection - Viral respiratory panel negative - VBG shows slight PCO2 retention (PCO2 55 mmHg) - CXR negative for obvious pulmonary edema, per my interpretation. Radiology notes some airspace opacity in the mid to lower lungs bilaterally with small pleural effusions, which they report may be due to atelectasis, multifocal pneumonia or pulmonary edema. - Patient recently admitted to the hospital and will start empirically on IV cefepime and vancomycin for antibiotic coverage for pneumonia. On reassessment, the patient does appear much more comfortable on the BiPAP. She reports she is feeling better. - Discussion was had with counseling case manager about patient's case and need for admission - Hospitalist consulted for admission - Patient admitted to [facility]ist service for further evaluation and management. I have personally spent 46 minutes of critical care time in the direct management of this patient. This includes bedside care, interpretation of diagnostic studies, and testing, discussion with consultants, patient, and family members, and other required patient management activities. This 46 minutes is in excess of all separately billable procedures. ASSESSMENT AND PLAN: Diagnosis: Acute hypoxemic respiratory failure; pneumonia; ASHLY on CKD; acute dyspnea Plan: Admit Past Med/Surg History Problem List (Updated 02/06/24 @ 15:01 by Susan Arce MD) Acute kidney injury superimposed on chronic kidney disease (Acute) Acute dyspnea (Acute) Pneumonia (Acute) Acute hypoxemic respiratory failure (Acute) Acute on chronic heart failure with preserved ejection fraction (HFpEF) CHF (congestive heart failure) Hypoxia (Acute) Acute hypoxemic respiratory failure (Acute) CVA (cerebral vascular accident) Recent URI Foot ulcer, left Elevated troponin Hypertensive urgency Stroke-like symptoms Anxiety and depression Hypothyroidism CAD (coronary artery disease) HLD (hyperlipidemia) Hypertension (Acute) Hyperglycemia (Acute) Non-ST elevation [place] (NSTEMI) (Acute) Weakness (Acute) Medical History Acute respiratory failure with hypoxia and hypercapnia Hyperkalemia RADHA (obstructive sleep apnea) Obesity, morbid, BMI 40.0-49.9 CKD (chronic kidney disease), stage III Chronic diastolic CHF (congestive heart failure) Pulmonary hypertension Diabetes mellitus, type II Surgical History History of cardiac cath s/p stents Family History (Updated 02/06/24 @ 14:10 by Tati Parmar PA-C) Other Cancer Heart disease Social History Smoking Status: Never smoker Do You Dip or Chew Tobacco: No; Hx Alcohol Use: No Hx Substance Use: No Preferred Language: Czech Communication Ability: Effective [employer] Helper Required: No Beliefs That Will Affect Care: None Current Living Situation: Family Current Living Situation Comment: lives with son Feels Safe at Home: Yes Gender Identity: Female Assistive Devices: Bedside Commode, Oxygen - Continuous and Walker Allergies Allergies Allergy/AdvReac Type Severity Reaction Status Date / Time No Known Allergies Allergy Verified 09/24/23 20:25 Home Meds Home Medications Medication Instructions Recorded Confirmed amlodipine 10 mg tablet 10 mg PO DAILY 07/29/23 02/06/24 escitalopram oxalate 20 mg tablet 20 mg PO DAILY 07/29/23 02/06/24 hydralazine 100 mg tablet 100 mg PO TID 07/29/23 02/06/24 metoprolol succinate 100 mg 100 mg PO QAM 07/29/23 02/06/24 tablet,extended release 24 hr sildenafil (pulm.hypertension) 20 20 mg PO TID 07/29/23 02/06/24 mg tablet insulin glargine 100 unit/mL (3 25 unit subcut QAM 09/24/23 02/06/24 mL) subcutaneous pen (Lantus Solostar U-100 Insulin) aspirin 81 mg capsule 81 mg PO DAILY 02/06/24 02/06/24 rosuvastatin 20 mg tablet 20 mg PO DAILY 02/06/24 02/06/24 Previous Rx's Medication Instructions Recorded torsemide 20 mg tablet See Rx Instructions .Route 11/26/23 .COMPLEX #90 tabs Results & Data (ED) Vital Signs Vital Signs - 24 hr 02/06/24 10:53 02/06/24 11:16 02/06/24 11:19 Temperature 36.6 C Temperature Source Temporal Artery Scan Pulse Rate 57 L 57 L 56 L Pulse Rate [Apical] Pulse Rate from SpO2 Sensor Respiratory Rate 24 18 Respiratory Effort / Characteristics Short of Breath Non-Labored Spontaneous Respiratory Depth Normal Respiratory Pattern Regular Blood Pressure 145/63 H Blood Pressure [Right Arm] Blood Pressure Mean 90 Blood Pressure Mean [Right Arm] Blood Pressure Position [Right Arm] Pulse Oximetry 82 L 92 Oxygen Delivery Method Oxymask Oxygen Flow Rate 8 Fraction of Inspired Oxygen 100 SaO2/FiO2 Ratio Sepsis Recent Fever Within 48 Hours No Sepsis New/Unexplained Change in Mental Status N/A Sepsis Action Taken by Nursing No Action Required 02/06/24 11:35 02/06/24 11:48 02/06/24 11:55 Temperature Temperature Source Pulse Rate 56 L 57 L Pulse Rate [Apical] 59 L Pulse Rate from SpO2 Sensor 56 L 55 L Respiratory Rate 19 16 20 Respiratory Effort / Characteristics Short of Breath Respiratory Depth Respiratory Pattern Blood Pressure 161/80 H Blood Pressure [Right Arm] 161/80 H Blood Pressure Mean 108 Blood Pressure Mean [Right Arm] 107 Blood Pressure Position [Right Arm] Semi-fowlers Pulse Oximetry 94 94 96 Oxygen Delivery Method BiPAP Oxygen Flow Rate Fraction of Inspired Oxygen SaO2/FiO2 Ratio Sepsis Recent Fever Within 48 Hours Sepsis New/Unexplained Change in Mental Status Sepsis Action Taken by Nursing 02/06/24 11:59 02/06/24 12:00 02/06/24 12:01 Temperature Temperature Source Pulse Rate 59 L 54 L Pulse Rate [Apical] Pulse Rate from SpO2 Sensor 55 L Respiratory Rate 17 21 Respiratory Effort / Characteristics Respiratory Depth Respiratory Pattern Blood Pressure 141/79 H Blood Pressure [Right Arm] Blood Pressure Mean 113 Blood Pressure Mean [Right Arm] Blood Pressure Position [Right Arm] Pulse Oximetry 96 95 Oxygen Delivery Method BiPAP BiPAP Oxygen Flow Rate Fraction of Inspired Oxygen SaO2/FiO2 Ratio Sepsis Recent Fever Within 48 Hours Sepsis New/Unexplained Change in Mental Status Sepsis Action Taken by Nursing 02/06/24 12:02 02/06/24 12:15 02/06/24 13:00 Temperature Temperature Source Pulse Rate 55 L Pulse Rate [Apical] 55 L Pulse Rate from SpO2 Sensor 55 L Respiratory Rate 20 16 Respiratory Effort / Characteristics Spontaneous Short of Breath Non-Labored Spontaneous Respiratory Depth Normal Normal Respiratory Pattern Regular Blood Pressure Blood Pressure [Right Arm] Blood Pressure Mean Blood Pressure Mean [Right Arm] Blood Pressure Position [Right Arm] Pulse Oximetry 95 95 Oxygen Delivery Method BiPAP BiPAP Oxygen Flow Rate Fraction of Inspired Oxygen 100 SaO2/FiO2 Ratio 95 Sepsis Recent Fever Within 48 Hours Sepsis New/Unexplained Change in Mental Status Sepsis Action Taken by Nursing Laboratory Data 02/06/24 11:27 02/06/24 11:27 Lab Results 02/06/24 02/06/24 Range/Units 11:27 13:45 WBC 8.95 (4.8-10.8) K/ul RBC 4.18 L (4.20-5.40) M/uL Hgb 10.6 L (12.0-16.0) g/dl Hct 34.2 L (37.0-47.0) % MCV 81.8 (80.0-100.0) fL MCH 25.4 (25.0-34.0) pg MCHC 31.0 L (32.0-36.0) g/dL RDW Std Deviation 44.9 (36.4-46.3) fL RDW Coeff of Sven 15.1 H (11.5-14.5) % Plt Count 246 (130-400) K/uL MPV 8.8 L (9.4-12.4) fL Immature Gran % (Auto) 0.6 % Neut % (Auto) 78.4 % Lymph % (Auto) 11.3 % Mills % (Auto) 6.8 % Eos % (Auto) 2.2 % Baso % (Auto) 0.7 % Neut # (Auto) 7.02 H (1.40-6.50) K/uL Lymph # (Auto) 1.01 L (1.20-3.40) K/uL Mills # (Auto) 0.61 H (0.11-0.59) K/uL Eos # (Auto) 0.20 (0.00-0.50) K/uL Baso # (Auto) 0.06 (0.00-0.20) K/uL Immature Gran # (Auto) 0.05 (0.01-0.20) K/uL Absolute Nucleated RBC 0.03 (0.00-0.12) K/uL Nucleated RBC % (auto) 0.3 % PT 11.0 (9.0-12.0) Seconds INR 1.0 (0.9-1.1) VBG pH 7.38 (7.36-7.41) VBG pCO2 55 H (38-50) mmHg VBG pO2 63 mmHg VBG HCO3 33 mmol/L VBG O2 Saturation 92.1 % VBG Base Excess 5.8 mEq/L Sodium 140 (136-145) mmol/L Potassium 4.8 (3.5-5.1) mmol/L Chloride 102 (98-107) mmol/L Carbon Dioxide 32 (21-32) mmol/L Anion Gap 6 (3-11) BUN 66 H (6-23) mg/dl Creatinine 2.05 H (0.6-1.2) mg/dl Est Cr Clr Drug Dosing 32.9 ml/min Est GFR ( Amer) 28.7 ml/min Est GFR (Non-Af Amer) 24.8 ml/min BUN/Creatinine Ratio 32.2 H (10-20) Glucose 93 (70-99(Fasting)) mg/dl Lactate 0.6 (0.4-2.0) mmol/L Calcium 9.9 (8.6-10.3) mg/dl Magnesium 2.5 H (1.7-2.4) mg/dl Total Bilirubin 0.7 (0.2-1.0) mg/dl AST 11 L (13-39) U/L ALT 14 (7-52) U/L Alkaline Phosphatase 99 (34-104) U/L Troponin I High Sens 8.1 (0-14) pg/ml B-Natriuretic Peptide 142 H (0-100) pg/ml Total Protein 8.0 (6.0-8.3) gm/dl Albumin 3.7 (3.4-5.0) gm/dl Globulin 4.3 H (2.5-4.0) gm/dl Albumin/Globulin Ratio 0.9 (0.9-2) Procalcitonin 0.06 (0-0.5) ng/ml Urine Color Yellow Urine Appearance Cloudy A (Clear) Urine pH 5.5 (4.5-7.5) Ur Specific [place] 1.012 (1.000-1.030) Urine Protein 3+ H (Negative) Urine Glucose (UA) Negative (Negative) Urine Ketones Negative (Negative) Urine Blood Negative (Negative) Urine Nitrite Negative (Negative) Urine Bilirubin Negative (Negative) Urine Urobilinogen Negative (Negative) Ur Leukocyte Esterase Negative (Negative) Urine WBC (Auto) 0-5 (0-5) /hpf Urine RBC (Auto) 0-2 (0-2) /hpf U Hyaline Cast (Auto) 11-20 H (0-2) /lpf U Epithel Cells (Auto) 0-2 (0-2) /hpf Urine Bacteria (Auto) None Seen (None Seen) Hyaline Casts Present A (None Presnt) /lpf Adenovirus (PCR) Not Detected (NotDetected) B. pertussis DNA (PCR) Not Detected (NotDetected) B.parapertussis DNA PCR Not Detected (NotDetected) C. pneumoniae DNA (PCR) Not Detected (NotDetected) Coronavirus OC43 (PCR) Not Detected (NotDetected) Coronavirus HKU1 (PCR) Not Detected (NotDetected) Coronavirus 229E (PCR) Not Detected (NotDetected) SARS-CoV-2 (PCR) Not Detected (NotDetected) Coronavirus NL63 (PCR) Not Detected (NotDetected) Human Metapneumovir PCR Not Detected (NotDetected) Influenza Type A (PCR) Not Detected (NotDetected) Influenza Type B (PCR) Not Detected (NotDetected) M. pneumoniae (PCR) Not Detected (NotDetected) Parainfluenza 1 (PCR) Not Detected (NotDetected) Parainfluenza 2 (PCR) Not Detected (NotDetected) Parainfluenza 3 (PCR) Not Detected (NotDetected) Parainfluenza 4 (PCR) Not Detected (NotDetected) RSV (PCR) Not Detected (NotDetected) Entero/Rhino (PCR) Not Detected (NotDetected) Administered Medications Vancomycin HCl 2,500 mg/ (Sodium Chloride) 550 mls @ 200 mls/hr IV NOW ONE Stop: 02/06/24 15:55 Last Admin: 02/06/24 14:38 Dose: 200 mls/hr Documented By: REAGAN Discontinued Medications Cefepime HCl (Maxipime) 2,000 mg in 20 mls @ 5 mls/min IV NOW STA; Protocol Stop: 02/06/24 13:14 Last Admin: 02/06/24 13:52 Dose: 5 mls/min Documented By: REAGAN Imaging Data Radiologist's Impression: Chest X-Ray 02/06/24 10:58 SINGLE VIEW CHEST CLINICAL HISTORY: Dyspnea FINDINGS: An AP, portable, upright chest radiograph is compared to study dated 11/22/2023 and correlated with chest CT dated 09/25/2023. The heart is enlarged. There is pulmonary vascular congestion. There is airspace consolidation in the mid to lower lungs bilaterally as well as small pleural effusions. No pneumothorax is seen. The skeletal structures are osteopenic. The bony thorax is grossly intact. Arthritic change is seen in the shoulders. IMPRESSION: 1. Cardiomegaly without evidence of congestive failure. 2. There is airspace consolidation in the mid to lower lungs bilaterally with small pleural effusions. This could represent pulmonary edema, atelectasis, and/or multifocal pneumonia. Clinical correlation will be required and radiographic follow-up to resolution is recommended ACT 112: Negative or not required by law. Electronically signed by: Tomi Miller M.D. 02/06/2024 1:08 PM Discharge Plan Visit Data Chief Complaint: Shortness of Breath/Dyspnea Stated Complaint: LOW O2 SAT, DIFF BREATHING, WEIGHT GAIN ED Provider: Susan Arce Discharge Problem: Acute hypoxemic respiratory failure, Pneumonia, Acute dyspnea, Acute kidney injury superimposed on chronic kidney disease Forms Stand Alone Forms: My [facility] Prescriptions Prescriptions: No Action metoprolol succinate 100 mg Tablet Extended Release 24 Hr 100 mg PO QAM amlodipine 10 mg Tablet 10 mg PO DAILY hydralazine 100 mg Tablet 100 mg PO TID escitalopram oxalate 20 mg Tablet 20 mg PO DAILY sildenafil (pulm.hypertension) 20 mg Tablet 20 mg PO TID insulin glargine [Lantus Solostar U-100 Insulin] 100 unit/mL (3 mL) insulin pen 25 unit SUBCUT QAM rosuvastatin 20 mg tablet 20 mg PO DAILY aspirin 81 mg Capsule 81 mg PO DAILY torsemide 20 mg tablet See Rx Instructions .ROUTE .COMPLEX Qty: 90 0RF Rx Instructions: Take 40 mg (2 tablets) in the morning and 20 mg ( 1 tablet) in the afternoon. Referrals Referrals: Bridgette Celis MD [Primary Care Provider] -
[2024-02-06 11:50] LABS: Base Excess VBG 5.8 mEq/L; HCO3 VBG 33 mmol/L; Oxygen Saturation VBG 92.1 %; PCO2 VBG 55 mmHg (38-50); PO2 VBG 63 mmHg; pH VBG 7.38 (7.36-7.41)
[2024-02-06 11:54] LABS: Basophils # (auto) 0.06 K/uL (0.00-0.20); Basophils % (auto) 0.7 %; Eosinophils % (auto) 2.2 %; Hematocrit (blood only) 34.2 % (37.0-47.0); Hemoglobin 10.6 g/dl (12.0-16.0); Immature Granulocytes # (auto) 0.05 K/uL (0.01-0.20); Immature Granulocytes % (auto) 0.6 %; Lymphocytes # (auto) 1.01 K/uL (1.20-3.40); Lymphocytes % (auto) 11.3 %; Mean Corpuscular Hemoglobin 25.4 pg (25.0-34.0); Mean Corpuscular Volume 81.8 fL (80.0-100.0); Mean Platelet Volume 8.8 fL (9.4-12.4); Monocytes # (auto) 0.61 K/uL (0.11-0.59); Monocytes % (auto) 6.8 %; Neutrophils # (auto) 7.02 K/uL (1.40-6.50); Neutrophils % (auto) 78.4 %; Nucleated RBC # (auto) 0.03 K/uL (0.00-0.12); Nucleated RBC % (auto) 0.3 %; Platelet Count 246 K/uL (130-400); RDW Coefficient of Variation 15.1 % (11.5-14.5); RDW Standard Deviation 44.9 fL (36.4-46.3); Red Blood Count 4.18 M/uL (4.20-5.40); White Blood Count 8.95 K/ul (4.8-10.8)
[2024-02-06 12:16] LABS: Albumin Globulin Ratio 0.9 (0.9-2); Albumin Level 3.7 gm/dl (3.4-5.0); BUN Creatinine Ratio 32.2 (10-20); Bilirubin,Total 0.7 mg/dl (0.2-1.0); Calcium 9.9 mg/dl (8.6-10.3); Creatinine Clr Calc Pharmacy 32.9 ml/min; Est GFR (African American) 28.7 ml/min; Est GFR (Non-African American) 24.8 ml/min; Globulin 4.3 gm/dl (2.5-4.0); Magnesium 2.5 mg/dl (1.7-2.4); Potassium 4.8 mmol/L (3.5-5.1)
[2024-02-06 12:22] LABS: Troponin I High Sensitivity 8.1 pg/ml (0-14)
[2024-02-06 12:55] LABS: Adenovirus PCR Not Detected (NotDetected); Bordetella parapertussis PCR Not Detected (NotDetected); Bordetella pertussis PCR Not Detected (NotDetected); Chlamydia pneumoniae PCR Not Detected (NotDetected); Coronavirus 229E PCR Not Detected (NotDetected); Coronavirus CoV-2 (COVID19)PCR Not Detected (NotDetected); Coronavirus HKU1 PCR Not Detected (NotDetected); Coronavirus NL63 PCR Not Detected (NotDetected); Coronavirus OC43PCR Not Detected (NotDetected); Human Metapneumovirus PCR Not Detected (NotDetected); Influenza A PCR Not Detected (NotDetected); Influenza B PCR Not Detected (NotDetected); Mycoplasma pneumoniae PCR Not Detected (NotDetected); Parainfluenza Virus 1 PCR Not Detected (NotDetected); Parainfluenza Virus 2 PCR Not Detected (NotDetected); Parainfluenza Virus 3 PCR Not Detected (NotDetected); Parainfluenza Virus 4 PCR Not Detected (NotDetected); Respiratory Syncytial VirusPCR Not Detected (NotDetected); Rhinovirus/Enterovirus PCR Not Detected (NotDetected)
--- NOTE | 2024-02-06 13:09 | XRay Report ---
SINGLE VIEW CHEST CLINICAL HISTORY: Dyspnea FINDINGS: An AP, portable, upright chest radiograph is compared to study dated 11/22/2023 and correlate d with chest CT dated 09/25/2023. The heart is enlarged. There is pulmonary vascular congestion. There is airspace consolidation in the mid to lower lungs bilaterally as well as small pleural effusions. No pneumothorax is seen. The skeletal structures are osteopenic. The bony thorax is grossly intact. A rthritic change is seen in the shoulders. IMPRESSION: 1. Cardiomegaly without evidence of congestive failure. 2. There is airspace consolidation in the mid to lower lungs bilaterally with small pleural effusions . This could represent pulmonary edema, atelectasis, and/or multifocal pneumonia. Clinical correlatio n will be required and radiographic follow-up to resolution is recommended ACT 112: Negative or not required by law. Electronically signed by: Tomi Miller M.D. 02/06/2024 1:08 PM
[2024-02-06] MEDS ORDERED: VANCOMYCIN CONSULT ACTIVE PRN (13:11)
[2024-02-06] MEDS: CEFEPIME 2,000 MG/20 ML VIAL IV STA (13:52)
--- NOTE | 2024-02-06 14:08 | History & Physical Report ---
Date of Service February 06, 2024 Assessment & Plan (1) Acute and chronic respiratory failure: (2) Pneumonia: (3) Pulmonary hypertension: (4) (HFpEF) heart failure with preserved ejection fraction: (5) Acute kidney injury superimposed on chronic kidney disease: (6) Hypothyroidism: (7) CAD (coronary artery disease): (8) Hypertension: Plan This is a 63-year-old female who has a significant past medical history of insulin-dependent T2DM, chronic hypoxic respiratory failure in 2-4L NC O2 at baseline, RADHA on nocturnal oxygen, pulmonary hypertension, morbid obesity, HFpEF, history of CVA, HTN, HLD, CKD and depression with anxiety who presents to ED secondary to progressive SOB since yesterday and was found to have acute on chronic respiratory failure in setting of PNA. Acute on chronic hypoxic respiratory failure Bilateral PNA Bilateral pleural effusion Was hypoxic at 78% per ED report despite oxymask, improved on bipap Afebrile, no leukocytosis, BNP 142, procal within normal range, respiratory viral panel negative CXR with cardiomegaly without evidence of congestive failure, presence of airspace consolidation in the mid to lower lungs bilaterally with small pleural effusions CT chest wo con to better visualize Started on empiric vanc and cefepime MRSA screen negative, will discontinue vanco Duonebs QID PRN, mucinex, mucomyst Routine pulm consult HFpEF Clinical hx more consistent with PNA above, CXR without evidence of congestive failure but pleural effusion However weight significantly up from previous - awaiting standing weight, CT chest 2D echo from Jul 2023 with EF 60-65%, grade 1 diastolic dysfunction, left atrium moderately dilated, mild to moderate MR and elevated RVSP at 40 to 50 mmHg Took AM 40mg Torsemide, due for 20mg this evening Reassess volume status , BMP in AM CKD stage III Cr seems to range from 1.2-1-5 as an outpatient and 1.5-2 per hospital records Cr 2.05 is higher limit of normal In setting of infection Hold PM lasix dose Monitor with daily BMP, continue to avoid further nephrotoxic agents as able Hx Lung nodules Subcarinal Lymphadenopathy Follows with pulm DM II Last A1c 8.1 on 12/29/23 Hold home agents Basal/bolus insulin per protocol while admitted BSG AC HS CAD with hx of Stent HLD Continue home aspirin, statin, Toprol Hypertension Continue Toprol, hydralazine History of CVA MRI brain 08/08 revealed small acute infarcts in bilateral occipital lobe concerning for embolic infarcts Per previous notes, no anticoagulation recommended given significant fall risk and vision issues unless clear arrhythmias confirmed Still awaiting zio monitoring per OP notes, due to see cards in late January RADHA, untreated, cpap noncompliant Pulmonary hypertension Continue sildenafil TID Possible that RADHA is contributing, but patient reports difficulty tolerating cpap mask Continue BIPAP Q HS inpatient Due to see sleep medicine on 02/09/24 Depression with anxiety Continue Lexapro Morbid Obesity, BMI 49.6 Continue to encourage diet and lifestyle modifications DVT Ppx: SQ heparin Code status: DNR/DNI PCP: Vimal Dispo: Admitted to PCU Patient seen in collaboration with Dr. Gustafson. Please see addendum. I spent a total of 75 minutes coordinating, documenting, and providing care for this patient excluding time spent in the performance of separately billed services. History of Present Illness Chief Complaint: SOB Primary Care Provider: Bridgette Celis MD This is a 63-year-old female who has a significant past medical history of insulin-dependent DM II, chronic hypoxic respiratory failure in 2-4L NC O2 at baseline, RADHA on nocturnal oxygen, pulmonary hypertension, morbid obesity, HFpEF, history of CVA, HTN, HLD, CKD and depression with anxiety who presents to ED secondary to progressive SOB since yesterday. Has had productive cough for a few days. No fever or chills. Had a sore throat last week that has resolved. No CP or abdominal pain. Was noted low oxygen saturations at home despite supplemental O2 and therefore came to ED for further evaluation. Was admitted to [facility] in November for decompensated HF in setting of missed torsemide doses. State she has been compliant with all meds including diuretics, which she took this AM. Due for noontime meds. Allergies Allergy/AdvReac Type Severity Reaction Status Date / Time No Known Allergies Allergy Verified 09/24/23 20:25 Home Medications Medication Instructions Recorded Confirmed Type amlodipine 10 mg tablet 10 mg PO DAILY 07/29/23 02/06/24 History escitalopram oxalate 20 mg tablet 20 mg PO DAILY 07/29/23 02/06/24 History hydralazine 100 mg tablet 100 mg PO TID 07/29/23 02/06/24 History metoprolol succinate 100 mg 100 mg PO QAM 07/29/23 02/06/24 History tablet,extended release 24 hr sildenafil (pulm.hypertension) 20 20 mg PO TID 07/29/23 02/06/24 History mg tablet insulin glargine 100 unit/mL (3 25 unit subcut QAM 09/24/23 02/06/24 History mL) subcutaneous pen (Lantus Solostar U-100 Insulin) torsemide 20 mg tablet See Rx Instructions .Route 11/26/23 02/06/24 Rx .COMPLEX #90 tabs aspirin 81 mg capsule 81 mg PO DAILY 02/06/24 02/06/24 History rosuvastatin 20 mg tablet 20 mg PO DAILY 02/06/24 02/06/24 History Past Med/Surg History Problem List (Updated 02/06/24 @ 16:18 by Tati Parmar PA-C) Acute and chronic respiratory failure Acute kidney injury superimposed on chronic kidney disease (Acute) Acute dyspnea (Acute) Pneumonia (Acute) Acute hypoxemic respiratory failure (Acute) Acute on chronic heart failure with preserved ejection fraction (HFpEF) CHF (congestive heart failure) Hypoxia (Acute) Acute hypoxemic respiratory failure (Acute) CVA (cerebral vascular accident) Recent URI Foot ulcer, left Elevated troponin Hypertensive urgency Stroke-like symptoms Anxiety and depression Hypothyroidism CAD (coronary artery disease) HLD (hyperlipidemia) Hypertension (Acute) Hyperglycemia (Acute) Non-ST elevation PA (NSTEMI) (Acute) Weakness (Acute) Medical History (Updated 02/06/24 @ 16:18 by Tati Parmar PA-C) (HFpEF) heart failure with preserved ejection fraction Acute respiratory failure with hypoxia and hypercapnia Hyperkalemia RADHA (obstructive sleep apnea) Obesity, morbid, BMI 40.0-49.9 CKD (chronic kidney disease), stage III Chronic diastolic CHF (congestive heart failure) Pulmonary hypertension Diabetes mellitus, type II Surgical History History of cardiac cath s/p stents Family History (Updated 02/06/24 @ 14:10 by Tati Parmar PA-C) Other Cancer Heart disease Social History Smoking Status: Never smoker Do You Dip or Chew Tobacco: No; Hx Alcohol Use: No Hx Substance Use: No Preferred Language: [place] Communication Ability: Effective Software Reliability Engineer Required: No Beliefs That Will Affect Care: None Current Living Situation: Family Current Living Situation Comment: lives with son Feels Safe at Home: Yes Gender Identity: Female Assistive Devices: Bedside Commode, Oxygen - Continuous and Walker Review of Systems Review of Systems: At least ten systems reviewed and negative except as noted in the HPI. Physical Exam Physical Exam: Please see Dr. Gustafson's addendum for physical exam. Results & Data Results & Data Vital Signs (Past 12 Hours) Vital Signs Temp Pulse Pulse Resp BP BP Pulse Ox 02/06/24 13:00 55 L 16 95 02/06/24 12:15 55 L 20 95 02/06/24 12:02 02/06/24 12:01 02/06/24 12:00 54 L 21 141/79 H 95 02/06/24 11:59 59 L 17 96 02/06/24 11:55 59 L 20 161/80 H 96 02/06/24 11:48 57 L 16 94 02/06/24 11:35 56 L 19 161/80 H 94 02/06/24 11:19 56 L 18 92 02/06/24 11:16 57 L 02/06/24 10:53 36.6 C 57 L 24 145/63 H 82 L O2 Del Method O2 Flow Rate FiO2 02/06/24 13:00 BiPAP 100 02/06/24 12:15 02/06/24 12:02 BiPAP 02/06/24 12:01 BiPAP 02/06/24 12:00 02/06/24 11:59 BiPAP 02/06/24 11:55 BiPAP 02/06/24 11:48 02/06/24 11:35 02/06/24 11:19 100 02/06/24 11:16 02/06/24 10:53 Oxymask 8 Laboratory Results Short CBC 02/06/24 Range/Units 11:27 WBC 8.95 (4.8-10.8) K/ul Hgb 10.6 L (12.0-16.0) g/dl Hct 34.2 L (37.0-47.0) % Plt Count 246 (130-400) K/uL BMP 02/06/24 11:27 Sodium 140 Potassium 4.8 Chloride 102 Carbon Dioxide 32 BUN 66 H Creatinine 2.05 H Glucose 93 Calcium 9.9 Liver Function 02/06/24 Range/Units 11:27 Total Bilirubin 0.7 (0.2-1.0) mg/dl AST 11 L (13-39) U/L ALT 14 (7-52) U/L Alkaline Phosphatase 99 (34-104) U/L Albumin 3.7 (3.4-5.0) gm/dl Diagnostic Findings Chest X-Ray 02/06/24 10:58 SINGLE VIEW CHEST CLINICAL HISTORY: Dyspnea FINDINGS: An AP, portable, upright chest radiograph is compared to study dated 11/22/2023 and correlated with chest CT dated 09/25/2023. The heart is enlarged. There is pulmonary vascular congestion. There is airspace consolidation in the mid to lower lungs bilaterally as well as small pleural effusions. No pneumothorax is seen. The skeletal structures are osteopenic. The bony thorax is grossly intact. Arthritic change is seen in the shoulders. IMPRESSION: 1. Cardiomegaly without evidence of congestive failure. 2. There is airspace consolidation in the mid to lower lungs bilaterally with small pleural effusions. This could represent pulmonary edema, atelectasis, and/or multifocal pneumonia. Clinical correlation will be required and radiographic follow-up to resolution is recommended ACT 112: Negative or not required by law. Electronically signed by: Tomi Miller M.D. 02/06/2024 1:08 PM ECG Additional Comments: EKG reviewed - sinus bradycardia, incomplete LBBB no change from previous Supervising Physician Co-Signing Physician Notes 63-year-old lady with PMH of insulin-dependent T2DM, chronic hypoxic respiratory failure in 2 to 4 L nasal cannula oxygen at baseline, RADHA on nocturnal oxygen, pulmonary hypertension, morbid obesity, HFpEF, CVA, HTN, HLD, CKD, depression with anxiety presented to the ED with progressive shortness of breath since 1 day. Patient reports productive cough for few days but is unable to comment on the color of the sputum. Patient denies fever or chills. Patient reports sore throat last week that has since resolved. patient reports no acute changes in bowel or bladder habit but reports decreased appetite since last few days, denies nausea or vomiting. Patient denied chest pain or abdominal pain. Patient denies smoking/alcohol/recreational drug use. DNR/DNI as per my discussion with the patient. Labs reviewed, fairly WNL, creatinine around her baseline/slightly on the higher side. UA negative for UTI. MRSA screen neg. Respiratory pathogen panel negative. EKG with sinus bradycardia. Chest x-ray with bilateral consolidation with a small pleural effusion. Acute On chronic hypoxic respiratory failure: Patient requiring BiPAP at presentation. patient utilizes 2 to 4 L oxygen at baseline. Bilateral pneumonia Bilateral pleural effusion Patient coming in with productive cough and shortness of breath, noted to have pneumonia with pleural effusion on chest x-ray. MRSA screen get, continue with cefepime. Can DC vanc. Will get CT chest. Mucomyst, DuoNebs, Mucinex. Pulmonology consult given pneumonia/pleural effusion/acute on chronic hypoxic respiratory failure. HFpEF: h/o, doesn't appeat to be volume overloaded, BNP lower than prior. Monitor for volume overload. On exam: GENERAL: Alert and oriented x3. NAD, on BPAP. Appears ill/frail/sick. HEENT: No pallor, no icterus. Pupils equal, round and reactive to light. Oral mucosa moist. NECK: No JVD, no neck masses. HEART: S1 and S2 heard. Regular rate and rhythm. No murmur, no gallop. RESPIRATORY SYSTEM: Normal AP diameter. No accessory muscle use. No wheezing, b/l mid crackles. bb increased breath sounds ABDOMEN: Soft, bowel sounds present, nontender, no distention. CENTRAL NERVOUS SYSTEM: No facial droop. Speech is clear. Obeys simple commands. Moves extremities. EXTREMITIES: No edema, no erythema seen. I have seen and examined the patient and have discussed the case with the provider above. I agree with the assessment and plan as stated.
[2024-02-06] MEDS ORDERED: DEXTROSE 50% 50 ML SYRINGE IV PRN (14:13)
[2024-02-06] MEDS ORDERED: GLUCAGON FOR INJ 1 MG VIAL SQ PRN (14:13)
[2024-02-06] MEDS ORDERED: GLUCOSE 40% GEL 15 GM TUBE PO PRN (14:13)
[2024-02-06] MEDS ORDERED: GLUCOSE 10 TAB/TUBE PO PRN (14:13)
[2024-02-06 14:17] LABS: Appearance Urine Cloudy (Clear); Bacteria Urine Automated None Seen (None Seen); Bilirubin Urine Negative (Negative); Blood Urine Negative (Negative); Color Urine Yellow; Epithelial Cell Urine Auto 0-2 /hpf (0-2); Glucose Urine UA Negative (Negative); Hyaline Casts Urine Present /lpf (None Presnt); Ketones Urine Negative (Negative); Leukocyte Esterase Urine Negative (Negative); Nitrite Urine Negative (Negative); Protein Urine 3+ (Negative); RBC Urine Automated 0-2 /hpf (0-2); Specific Gravity Urine 1.012 (1.000-1.030); Urobilinogen Urine Negative (Negative); WBC Urine Automated 0-5 /hpf (0-5); pH Urine 5.5 (4.5-7.5)
[2024-02-06] MEDS: VANCOMYCIN HCL 2,500 MG in SODIUM CHLORIDE 0.9% 500 ML IV ONE (14:38)
[2024-02-06] MEDS: INSULIN ASPART PER UNIT CHARGE SC SCH (18:04)
[2024-02-06] MEDS ORDERED: POLYETHYLENE (MIRALAX) 17 GM PACK PO PRN (18:26)
[2024-02-06] MEDS ORDERED: ACETAMINOPHEN 325 MG TAB PO PRN (18:26)
[2024-02-06] MEDS: CARBOHYDRATES FOR HYPOGLYCEMIA PO PRN (19:42)
[2024-02-06] MEDS: ALBUT/IPRATROP 3MG/0.5MG NEB 3 ML VIAL NEB PRN (19:46)
[2024-02-06] MEDS: ACETYLCYSTEINE 20% INHAL SOLN 4ML ***DISPENSED BY RESP. INH SCH (19:46)
--- NOTE | 2024-02-06 20:05 | CT Scan Report ---
CT SCAN OF THE CHEST WITHOUT IV CONTRAST CLINICAL HISTORY: Pneumonia. Pleural effusion. COMPARISON STUDY: Chest x-ray dated 02/06/2024. Chest CT dated 09/25/2023. TECHNIQUE: CT scan of the thorax was performed from the thoracic inlet to the upper abdomen. Images are reviewed in the axial, sagittal, and coronal planes. IV contrast was not administered for this ex amination as per the referring clinician. A dose lowering technique was utilized adhering to the maykel mera of ALAYNA. CT DOSE: 982.41 mGy.cm FINDINGS: Thyroid: Imaged portions of the thyroid gland are normal in size and attenuation. Thoracic aorta: There is moderate atherosclerotic calcification of the thoracic aorta, which is sharee l in caliber and demonstrates standard 3-vessel arch anatomy. Heart: The heart is enlarged and without pericardial effusion. The coronary arteries are densely calc ified. There is diminished attenuation of the cardiac blood pool is compared to the myocardium sugges ting anemia. The pulmonary trunk is dilated, measuring 4.0 cm in diameter. This suggests pulmonary ar trung hypertension. Lungs and pleural spaces: Intralobular septal thickening is seen throughout both lungs. There are mod erate pleural effusions with dependent consolidation, right larger than left. The trachea and central airways are clear. Mediastinum: Mildly enlarged mediastinal lymph nodes measure up to 13 mm in short axis. These are sim ilar to previous. Jana: Not well assessed without IV contrast. Axillae: There is no axillary lymphadenopathy. Upper abdomen: The liver is cirrhotic in morphology and heterogeneous attenuation. There is nodularit y of the hepatic surface contour. There is a small volume of perihepatic ascites. Skeletal structures: The skeletal structures are osteopenic. No lytic or blastic bony lesions are see n. Degenerative change is noted in the shoulders and spine. IMPRESSION: 1. Cardiomegaly with evidence of congestive failure and pulmonary edema. Radiographic follow-up to re solution is recommended. 2. Right larger than left pleural effusions with dependent consolidation. 3. Mildly enlarged mediastinal lymph nodes are nonspecific and unchanged from previous. 4. Cirrhotic liver morphology and small volume perihepatic ascites. 5. Additional findings as above. ACT 112: Negative or not required by law. Electronically signed by: Tomi Miller M.D. 02/06/2024 8:03 PM
[2024-02-06] MEDS: guaiFENesin 600 MG TABCR PO SCH (21:06)
[2024-02-06] MEDS: SILDENAFIL CITRATE 20 MG TABLET PO SCH (21:07)
[2024-02-06] MEDS: LANTUS PER UNIT CHARGE SQ SCH (22:20)
[2024-02-07] MEDS: hydrALAZINE TAB 50 MG TAB PO SCH (01:07)
[2024-02-07] MEDS: CEFEPIME 2,000 MG in SYRINGE 0 ML IV SCH (01:07)
[2024-02-07 07:20] LABS: Hematocrit (blood only) 32.7 % (37.0-47.0); Hemoglobin 10.2 g/dl (12.0-16.0); Mean Corpuscular Hemoglobin 25.7 pg (25.0-34.0); Mean Corpuscular Hgb Conc 31.2 g/dL (32.0-36.0); Mean Corpuscular Volume 82.4 fL (80.0-100.0); Mean Platelet Volume 8.8 fL (9.4-12.4); Platelet Count 234 K/uL (130-400); RDW Coefficient of Variation 15.1 % (11.5-14.5); RDW Standard Deviation 44.8 fL (36.4-46.3); Red Blood Count 3.97 M/uL (4.20-5.40); White Blood Count 8.59 K/ul (4.8-10.8)
[2024-02-07 07:45] LABS: BUN Creatinine Ratio 36.5 (10-20); Calcium 9.6 mg/dl (8.6-10.3); Creatinine Clr Calc Pharmacy 37.7 ml/min; Est GFR (African American) 34.1 ml/min; Est GFR (Non-African American) 29.4 ml/min; Potassium 4.6 mmol/L (3.5-5.1)
--- NOTE | 2024-02-07 08:03 | Cardiology Consultation ---
Date of Consultation February 07, 2024 Assessment & Plan (1) Acute and chronic respiratory failure: (2) Acute on chronic heart failure with preserved ejection fraction (HFpEF): (3) Pneumonia: Plan Assessment: 63 year old female with admission for progressively worsening dyspnea and notable hypervolemia. Question of possible pneumonia. Known history of recent hospitalization and non-compliance. Plan: - Respiratory failure multi-factorial given patient's medical history. Does demonstrate evidence of volume overload on exam consistent with labs. -Renal function stable today, Will start IV lasix 60mg this morning and reassess in the AM. -Goal serum K> 4.0 and Serum mag > 2.0 -CHF teaching. -Enforce strict I&O with daily weights on same scale. Maintain a low sodium (less than 2000mg/day) diet, and 1500ml fluid restriction. -Monitor serum electrolytes and renal function closely. -Closely monitor BP as it is currently above target. -Will continue Amlodipine 10mg QD, Hydralazine 100mg TID, Toprol xl 100mg QD -Will continue to follow and check fluid status in the AM. -Chest xray and CT scan not convincing for pneumonia. Labs not suggestive of an acute infectious process. Will defer to primary team. -Pulmonology on consult and will appreciate any recommendations. Case has been discussed with Dr. Villegas. Further recommendations regarding plan of care as per his assessment. I spent a total of 30 minutes on the date of service in preparation, delivery, documentation of the care provided to the patient excluding any time spent in the performance of separately billed services. TOÑO May [facility] Cardiology [facility] Supervising Physician Co-Signing Physician Notes I have personally performed a history and physical examination on the patient. I have reviewed the advance practitioner's documentation, and I agree with, and take responsibility for the plan of care. 63-year-old female with acute on chronic heart failure with preserved ejection fraction and chronic renal insufficiency. Transition to oral to IV diuretic therapy. Monitor fluid balance, daily weight, GFR, and electrolytes. Cardiology will follow during hospitalization. I spent a total of 30 minutes on the date of service in preparation, delivery, and documentation of the care provided to this patient, excluding any time spent in the performance of separately billed services. Stevie Villegas DO, [facility] History of Present Illness Reason for Consultation: acute on chronic heart failure Requesting Physician: [facility] hospitalist Attending Physician: Chaka Gustafson MD History of Present Illness HPI: 63-year-old female who has a significant past medical history of insulin- dependent T2DM, RADHA on nocturnal oxygen, pulmonary hypertension, morbid obesity, chronic diastolic heart failure, history of CVA, HTN, HLD, CKD and depression with anxiety who presents to ED secondary to progressive shortness of breath since yesterday. SPO2 was 78% on admission, improved with Bipap. Patient is Afebrile with negative respiratory viral panel, no leukocytosis and normal Procalcitonin. Patient's home diuretic regimen is Torsemide 40mg in the AM, and 20mg QPM. She received a one time dose of IV lasix 20mg in the ED, but further diuretics were held due to elevated Creatine and are pending cardiology recommendation. Patient is resting in bed with high flow O2. She endorses a cough and dyspnea, but no chest pain, pressure or palpitations. She states that she has been compliant with all medications, and denies excessive salt or fluid intake reporting that she hasn't had any appetite. Chest xray: IMPRESSION: 1. Cardiomegaly without evidence of congestive failure. 2. There is airspace consolidation in the mid to lower lungs bilaterally with small pleural effusions. This could represent pulmonary edema, atelectasis, and/or multifocal pneumonia. Clinical correlation will be required and radiographic follow-up to resolution is recommended EKG on admission SB, incomplete left BBB, LVH unchanged from prior Rate 56bpm. Chest CT: IMPRESSION: 1. Cardiomegaly with evidence of congestive failure and pulmonary edema. Radiographic follow-up to resolution is recommended. 2. Right larger than left pleural effusions with dependent consolidation. 3. Mildly enlarged mediastinal lymph nodes are nonspecific and unchanged from previous. 4. Cirrhotic liver morphology and small volume perihepatic ascites. 5. Additional findings as above. Of note, Patient was hospitalized from 09/23-09/28 with acute hypoxic respiratory failure, and most recently 11/17-11/26/2023 for the same. Allergies Allergy/AdvReac Type Severity Reaction Status Date / Time No Known Allergies Allergy Verified 09/24/23 20:25 Home Medications Medication Instructions Recorded Confirmed Type amlodipine 10 mg tablet 10 mg PO DAILY 07/29/23 02/06/24 History escitalopram oxalate 20 mg tablet 20 mg PO DAILY 07/29/23 02/06/24 History hydralazine 100 mg tablet 100 mg PO TID 07/29/23 02/06/24 History metoprolol succinate 100 mg 100 mg PO QAM 07/29/23 02/06/24 History tablet,extended release 24 hr sildenafil (pulm.hypertension) 20 20 mg PO TID 07/29/23 02/06/24 History mg tablet insulin glargine 100 unit/mL (3 25 unit subcut QAM 09/24/23 02/06/24 History mL) subcutaneous pen (Lantus Solostar U-100 Insulin) torsemide 20 mg tablet See Rx Instructions .Route 11/26/23 02/06/24 Rx .COMPLEX #90 tabs aspirin 81 mg capsule 81 mg PO DAILY 02/06/24 02/06/24 History rosuvastatin 20 mg tablet 20 mg PO DAILY 02/06/24 02/06/24 History Patient History Medical History (Updated 02/06/24 @ 16:18 by Tati Parmar PA-C) (HFpEF) heart failure with preserved ejection fraction Acute respiratory failure with hypoxia and hypercapnia Hyperkalemia RADHA (obstructive sleep apnea) Obesity, morbid, BMI 40.0-49.9 CKD (chronic kidney disease), stage III Chronic diastolic CHF (congestive heart failure) Pulmonary hypertension Diabetes mellitus, type II Surgical History History of cardiac cath s/p stents Family History (Updated 02/06/24 @ 14:10 by Tati Parmar PA-C) Other Cancer Heart disease Social History Smoking Status: Never smoker Do You Dip or Chew Tobacco: No; Hx Alcohol Use: No Hx Substance Use: No Preferred Language: Irish Communication Ability: Effective Potato Peeler Required: No Beliefs That Will Affect Care: None Current Living Situation: Family Current Living Situation Comment: lives with son Feels Safe at Home: Yes Safety Concerns: Feels Safe At This Time Gender Identity: Female Assistive Devices: Bedside Commode, Cane, Oxygen - Continuous and Walker Review of Systems Review of Systems: All systems reviewed & are unremarkable except as noted in HPI & below Physical Exam Constitutional: + ill appearing and + obese; no acute di stress Neck: normal visual inspection and trachea midline Respiratory: + cough (non productive); no respiratory distress and no labored breathing Auscultation: + diminished lung sounds (severely diminished in bilateral bases ) and + wheezes (faint exp. wheezes in middle and upper lobes bilat. ); no crackles, no rales and no rhonchi Cardiovascular: Rate/Rhythm: regular rate and regular rhythm Heart Sounds: normal S1, normal S2 and + murmur (+2/6 systolic) Vessels: dorsalis pedis pulses present; no JVD Extremities: + edema (difficult to assess due to body habitus. +1 BLE) Skin: no rashes, warm and dry Psychiatric: A+Ox3, euthymic affect Results & Data Vital Signs (Past 12 Hours) Vital Signs Temp Pulse Pulse Resp BP BP BP 02/07/24 07:00 37.6 C H 63 18 174/74 H 02/07/24 06:00 02/07/24 03:49 36.5 C 60 24 154/83 H 02/07/24 03:40 59 L 18 02/06/24 23:51 63 23 02/06/24 22:41 02/06/24 22:30 59 L 02/06/24 21:52 36.1 C L 57 L 22 02/06/24 21:30 36.1 C L 57 L 20 151/85 H 02/06/24 21:27 55 L 22 02/06/24 20:54 56 L 17 02/06/24 20:30 54 L 20 142/85 H 02/06/24 20:02 53 L 20 156/75 H BP Pulse Ox O2 Del Method O2 Flow Rate FiO2 02/07/24 07:00 Oxymask 02/07/24 06:00 Non-rebreather 15 02/07/24 03:49 94 CPAP 02/07/24 03:40 95 80 02/06/24 23:51 93 80 02/06/24 22:41 CPAP 80 02/06/24 22:30 02/06/24 21:52 151/85 H 92 CPAP 80 02/06/24 21:30 92 CPAP 80 02/06/24 21:27 93 80 02/06/24 20:54 93 BiPAP 02/06/24 20:30 94 BiPAP 02/06/24 20:02 94 BiPAP Laboratory Results Cardiac Enzymes 02/06/24 Range/Units 11: AST 11 L (13-39) U/L Troponin I High Sens 8.1 (0-14) pg/ml B-Natriuretic Peptide 142 H (0-100) pg/ml Coagulation 02/06/24 Range/Units 11:27 PT 11.0 (9.0-12.0) Seconds B-Natriuretic Peptide 142 H (0-100) pg/ml CBC 02/06/24 02/07/24 Range/Units 11: 06:30 WBC 8.95 8.59 (4.8-10.8) K/ul RBC 4.18 L 3.97 L (4.20-5.40) M/uL Hgb 10.6 L 10.2 L (12.0-16.0) g/dl Hct 34.2 L 32.7 L (37.0-47.0) % Plt Count 246 234 (130-400) K/uL Neut # (Auto) 7.02 H (1.40-6.50) K/uL Lymph # (Auto) 1.01 L (1.20-3.40) K/uL [place] # (Auto) 0.61 H (0.11-0.59) K/uL Eos # (Auto) 0.20 (0.00-0.50) K/uL Baso # (Auto) 0.06 (0.00-0.20) K/uL Comprehensive Metabolic Panel 02/06/24 02/07/24 Range/Units 11: 06:30 Sodium 140 142 (136-145) mmol/L Potassium 4.8 4.6 (3.5-5.1) mmol/L Chloride 102 104 (98-107) mmol/L Carbon Dioxide 32 31 (21-32) mmol/L BUN 66 H 65 H (6-23) mg/dl Creatinine 2.05 H 1.78 H (0.6-1.2) mg/dl Glucose 93 76 (70-99(Fasting)) mg/dl Calcium 9.9 9.6 (8.6-10.3) mg/dl AST 11 L (13-39) U/L ALT 14 (7-52) U/L Alkaline Phosphatase 99 (34-104) U/L Total Protein 8.0 (6.0-8.3) gm/dl Albumin 3.7 (3.4-5.0) gm/dl Intake and Output 02/06/24 02/07/24 02/07/24 22:59 06:59 14:59 Intake Total 600 / 600 Output Total 400 / 400 Balance 600 / 200 -400 / 200 Intake: IV 550 / 550 Vancomycin HCl 2,500 mg In 550 / 550 Sodium Chloride 0.9% 500 ml @ 200 mls/hr IV NOW ONE Rx#: [id number] Oral 50 / 50 Output: Urine Amount (Catheter) 400 / 400 External 400 / 400 Other: Weight 117.6 kg 118 kg Weight Measurement Method Built [facility] Diagnostic Findings Echocardiogram Jul 2023 [facility] moderate LVH LV with normal wall motion LVEF 60-65% Grade I diastolic dysfunction Left Atrium moderately dilated Aortic valve sclerosis without evidence of stenosis Trace AI Mild to moderate MR Negative bubble study Trace TR PASP 40-50mmHg EKG 02/06/24: SB Incomplete left BBB, LVH, Rate 56bpm
[2024-02-07 08:52] LABS: Estimated Average Glucose 157 mg/dl; Hemoglobin A1C 7.1 % (4.5-5.6)
[2024-02-07] MEDS ORDERED: TORSEMIDE 20 MG TAB PO SCH ×2 (09:00→17:00)
[2024-02-07] MEDS: METOPROLOL SUCC 50MG EXT REL TAB PO SCH (09:17)
[2024-02-07] MEDS: ESCITALOPRAM OXALATE 20 MG TAB PO SCH (09:17)
[2024-02-07] MEDS: ASPIRIN 81 MG ECTAB PO SCH (09:17)
[2024-02-07] MEDS: amLODIPine BESYLATE 5 MG TAB PO SCH (09:17)
[2024-02-07] MEDS: ROSUVASTATIN CALCIUM 20 MG TAB PO SCH (09:17)
[2024-02-07] MEDS: FUROSEMIDE 40 MG/4 ML VIAL IV SCH (09:17)
--- NOTE | 2024-02-07 12:00 | Pulmonary Consultation ---
Date of Consultation February 07, 2024 Assessment & Plan (1) Acute dyspnea: Symptoms secondary to acute volume overload related to heart failure. Cannot rule out chronic aspiration. Will order speech therapy consult. Continue diuresis per cardiology. Continue PAP support as needed. No signs of underlying pulmonary disease. Patient does have bilateral pleural effusions secondary to CHF. (2) Acute hypoxemic respiratory failure: (3) Acute on chronic heart failure with preserved ejection fraction (HFpEF): History of Present Illness Reason for Consultation: Hypoxia Attending Physician: Chaka Gustafson MD History of Present Illness 63-year-old female with a history of diastolic heart failure, obesity, CAD and hypertension who presents with shortness of breath and cough. Patient denies any recent fevers. Patient notes that her appetite has been poor as of late. She denies missing any diuretic doses. She states that she is adhering to a low-salt diet. She does not check her weights regularly. She continues to have a cough and shortness of breath today with any significant exertion. She remains on supplemental oxygen therapy. She notes that she does not use supplemental oxygen at home. CT chest imaging from yesterday reveals bilateral effusions, right greater than the left and compressive atelectasis. Allergies Allergy/AdvReac Type Severity Reaction Status Date / Time No Known Allergies Allergy Verified 09/24/23 20:25 Home Medications Medication Instructions Recorded Confirmed Type amlodipine 10 mg tablet 10 mg PO DAILY 07/29/23 02/06/24 History escitalopram oxalate 20 mg tablet 20 mg PO DAILY 07/29/23 02/06/24 History hydralazine 100 mg tablet 100 mg PO TID 07/29/23 02/06/24 History metoprolol succinate 100 mg 100 mg PO QAM 07/29/23 02/06/24 History tablet,extended release 24 hr sildenafil (pulm.hypertension) 20 20 mg PO TID 07/29/23 02/06/24 History mg tablet insulin glargine 100 unit/mL (3 25 unit subcut QAM 09/24/23 02/06/24 History mL) subcutaneous pen (Lantus Solostar U-100 Insulin) torsemide 20 mg tablet See Rx Instructions .Route 11/26/23 02/06/24 Rx .COMPLEX #90 tabs aspirin 81 mg capsule 81 mg PO DAILY 02/06/24 02/06/24 History rosuvastatin 20 mg tablet 20 mg PO DAILY 02/06/24 02/06/24 History Patient History Medical History (Updated 02/06/24 @ 16:18 by Tati Parmar PA-C) (HFpEF) heart failure with preserved ejection fraction Acute respiratory failure with hypoxia and hypercapnia Hyperkalemia RADHA (obstructive sleep apnea) Obesity, morbid, BMI 40.0-49.9 CKD (chronic kidney disease), stage III Chronic diastolic CHF (congestive heart failure) Pulmonary hypertension Diabetes mellitus, type II Surgical History History of cardiac cath s/p stents Family History (Updated 02/06/24 @ 14:10 by Tati Parmar PA-C) Other Cancer Heart disease Social History Smoking Status: Never smoker Do You Dip or Chew Tobacco: No; Hx Alcohol Use: No Hx Substance Use: No Preferred Language: Lithuanian Communication Ability: Effective Hand Roller Required: No Beliefs That Will Affect Care: None Current Living Situation: Family Current Living Situation Comment: lives with son Feels Safe at Home: Yes Safety Concerns: Feels Safe At This Time Gender Identity: Female Assistive Devices: Bedside Commode, Cane, Oxygen - Continuous and Walker Review of Systems Review of Systems: All systems reviewed & are unremarkable except as noted in HPI & below Physical Exam Physical Exam: Constitutional: Patient appears to be of their stated age. Patient is in no apparent distress. Morbidly obese. Eyes: Pupils are equal round and reactive to light. Conjunctivae are normal. Anicteric sclera. Ears nose, mouth and throat: Mallampati class 2. Normal posterior oropharynx. Uvula is midline. Neck: Trachea is midline. Visual inspection is normal. Respiratory: Bilateral crackles. Mildly tachypneic. Cardiovascular: Regular rate and rhythm. No murmurs. No edema. Gastrointestinal: Normal bowel sounds, soft, nontender and nondistended. No hepatosplenomegaly noted. Musculoskeletal: No cyanosis. Patient is able to move all extremities. Strength is 5 out of 5 in the upper and lower extremities. Skin: No rashes, warm dry and intact. Neurologic: No obvious focal neurological deficits seen. Psychiatric: Alert and oriented x3 with a euthymic affect. Results & Data Results & Data Vital Signs (Past 12 Hours) Vital Signs Temp Pulse Pulse Resp BP BP Pulse Ox 02/07/24 11:04 61 02/07/24 10:53 36.7 C 61 18 150/85 H 150/85 H 92 02/07/24 08:16 63 20 93 02/07/24 08:16 64 20 94 02/07/24 07:45 02/07/24 07:00 37.2 C 63 18 174/74 H 02/07/24 06:00 02/07/24 03:49 36.5 C 60 24 154/83 H 94 02/07/24 03:40 59 L 18 95 O2 Del Method O2 Flow Rate FiO2 02/07/24 11:04 02/07/24 10:53 Nasal Cannula, Oxymask 15 02/07/24 08:16 60 02/07/24 08:16 BiPAP 60 02/07/24 07:45 Oxymask 15 02/07/24 07:00 Oxymask 02/07/24 06:00 Non-rebreather 15 02/07/24 03:49 CPAP 02/07/24 03:40 80 PG Care Time/CCT Total # of Minutes Spent Total Time Spent with Patient: Total time spent is greater than 50% in coordination of care (as documented) at patient's floor/unit and/or counseling patient: Coding Level of Care Code 50110 IN/OBS CONSULT LVL 3,45M Diagnoses Acute dyspnea R06.00 Acute hypoxemic respiratory failure J96.01 Acute on chronic heart failure with preserved ejection fraction (HFpEF) I50.33
--- NOTE | 2024-02-07 14:42 | Hospitalist Progress Note ---
Date of Service February 07, 2024 Assessment & Plan (1) Acute and chronic respiratory failure: (2) Pneumonia: (3) Pulmonary hypertension: (4) (HFpEF) heart failure with preserved ejection fraction: (5) Acute kidney injury superimposed on chronic kidney disease: (6) Hypothyroidism: (7) CAD (coronary artery disease): (8) Hypertension: Plan per admitting service notes with addendum: This is a 63-year-old female who has a significant past medical history of insulin-dependent T2DM, chronic hypoxic respiratory failure in 2-4L NC O2 at baseline, RADHA on nocturnal oxygen, pulmonary hypertension, morbid obesity, HFpEF, history of CVA, HTN, HLD, CKD and depression with anxiety who presents to ED secondary to progressive SOB since yesterday and was found to have acute on chronic respiratory failure in setting of PNA. Acute on chronic hypoxic respiratory failure Bilateral PNA Bilateral pleural effusion Was hypoxic at 78% per ED report despite oxymask, improved on bipap Afebrile, no leukocytosis, BNP 142, procal within normal range, respiratory viral panel negative CXR with cardiomegaly without evidence of congestive failure, presence of airspace consolidation in the mid to lower lungs bilaterally with small pleural effusions CT chest wo con to better visualize Started on empiric vanc and cefepime MRSA screen negative, will discontinue vanco Duonebs QID PRN, mucinex, mucomyst Routine pulm consult 02/06 currently on oxymask Lasix 60mg iv started monitor diuresis continue IV abx HFpEF Clinical hx more consistent with PNA above, CXR without evidence of congestive failure but pleural effusion However weight significantly up from previous - awaiting standing weight, CT chest 2D echo from Jul 2023 with EF 60-65%, grade 1 diastolic dysfunction, left atrium moderately dilated, mild to moderate MR and elevated RVSP at 40 to 50 mmHg Took AM 40mg Torsemide, due for 20mg this evening Reassess volume status , BMP in AM 02/06 per above CKD stage III Cr seems to range from 1.2-1-5 as an outpatient and 1.5-2 per hospital records Cr 2.05 is higher limit of normal In setting of infection Hold PM lasix dose Monitor with daily BMP, continue to avoid further nephrotoxic agents as able Hx Lung nodules Subcarinal Lymphadenopathy Follows with pulm DM II Last A1c 8.1 on 12/29/23 Hold home agents Basal/bolus insulin per protocol while admitted BSG AC HS CAD with hx of Stent HLD Continue home aspirin, statin, Toprol Hypertension Continue Toprol, hydralazine History of CVA MRI brain 08/08 revealed small acute infarcts in bilateral occipital lobe concerning for embolic infarcts Per previous notes, no anticoagulation recommended given significant fall risk and vision issues unless clear arrhythmias confirmed Still awaiting zio monitoring per OP notes, due to see cards in late January RADHA, untreated, cpap noncompliant Pulmonary hypertension Continue sildenafil TID Possible that RADHA is contributing, but patient reports difficulty tolerating cpap mask Continue BIPAP Q HS inpatient Due to see sleep medicine on 02/09/24 Depression with anxiety Continue Lexapro Morbid Obesity, BMI 49.6 Continue to encourage diet and lifestyle modifications DVT Ppx: SQ heparin Code status: DNR/DNI PCP: Vimal Dispo: pending will need PT/OT eval Admission and Anticipated Discharge Date Admission Date: February 06, 2024 Subjective Follow-up for acute on chronic respiratory failure, bilateral pleural effusion, acute on chronic CHF, etc. Seen resting in bed, sitting up, on OxyMask States she feels improved overall compared to yesterday States breathing is improving overall Denies chest pain, active shortness of breath on exam, palpitations, dizziness No other new symptoms Review of Systems Review of Systems: all noted and negative except for above Physical Exam Physical Exam: General- oriented x 3, not in distress, speaks in sentences with no effort or accessory muscle use Eyes- anicteric Neck- no JVD Lungs- Mildly decreased breath sound at the bases, no crackles Heart- normal rate, regular rhythm; no murmurs Abdomen- normal bowel sounds, nondistended, soft, nontender Extremities- mild lower extremity edema, no calf tenderness Neuro- alert, oriented x 3; no gross focal neurologic deficits Skin- warm & dry Results & Data Results & Data Vital Signs (Past 12 Hours) Vital Signs Temp Pulse Pulse Resp BP BP Pulse Ox 02/07/24 11:04 61 02/07/24 10:53 36.7 C 61 18 150/85 H 150/85 H 92 02/07/24 08:16 63 20 93 02/07/24 08:16 64 20 94 02/07/24 07:45 02/07/24 07:00 37.2 C 63 18 174/74 H 02/07/24 06:00 02/07/24 03:49 36.5 C 60 24 154/83 H 94 02/07/24 03:40 59 L 18 95 O2 Del Method O2 Flow Rate FiO2 02/07/24 11:04 02/07/24 10:53 Nasal Cannula, Oxymask 15 02/07/24 08:16 60 02/07/24 08:16 BiPAP 60 02/07/24 07:45 Oxymask 15 02/07/24 07:00 Oxymask 02/07/24 06:00 Non-rebreather 15 02/07/24 03:49 CPAP 02/07/24 03:40 80 all noted and reviewed including below
[2024-02-08 06:59] LABS: Hematocrit (blood only) 31.3 % (37.0-47.0); Hemoglobin 9.9 g/dl (12.0-16.0); Mean Corpuscular Hemoglobin 25.8 pg (25.0-34.0); Mean Corpuscular Hgb Conc 31.6 g/dL (32.0-36.0); Mean Corpuscular Volume 81.7 fL (80.0-100.0); Mean Platelet Volume 8.9 fL (9.4-12.4); Platelet Count 248 K/uL (130-400); RDW Coefficient of Variation 15.6 % (11.5-14.5); RDW Standard Deviation 45.8 fL (36.4-46.3); Red Blood Count 3.83 M/uL (4.20-5.40); White Blood Count 9.08 K/ul (4.8-10.8)
[2024-02-08 07:15] LABS: BUN Creatinine Ratio 35.5 (10-20); Calcium 9.4 mg/dl (8.6-10.3); Creatinine Clr Calc Pharmacy 36.7 ml/min; Est GFR (Non-African American) 28.5 ml/min; Potassium 4.7 mmol/L (3.5-5.1)
--- NOTE | 2024-02-08 09:58 | Cardiology Progress Note ---
Date of Service February 08, 2024 Assessment & Plan (1) Acute and chronic respiratory failure: (2) Acute on chronic heart failure with preserved ejection fraction (HFpEF): (3) Pneumonia: Plan Complex, morbidly obese 63-year-old female with untreated obstructive sleep apnea, nocturnal hypoxemia, pulmonary hypertension on sildenafil, pickwickian physiology. Patient admitted with recurrent acute decompensated diastolic heart failure, HFpEF, in setting of stage III chronic kidney disease, underlying ASCVD (status post staged PCI, LAD on December 27, 2019, RCA on January 24, 2020), possible pneumonia. Ongoing hypervolemia observed, blood pressure uncontrolled. Renal function relatively stable thus far with cautious diuresis. Recommendations: Increase IV furosemide to 60 mg IV twice per day Monitor I/O's, daily weight, daily metabolic panels. Find a way to tolerate BiPAP therapy Continue metoprolol, amlodipine, and hydralazine for now No JAMIE, ARB, ARNi, or mineralocorticoid receptor antagonists, RE: renal insufficiency, hyperkalemia. Continue aspirin and statin (switching rosuvastatin to atorvastatin given CKD) ? need for sildenafil ? Admission and Anticipated Discharge Date Admission Date: February 06, 2024 Supervising Physician Co-Signing Physician Notes Attending attestation: Case reviewed with the advanced practitioner. I have personally performed a history and physical examination on the patient. I have reviewed the advanced practitioner's documentation on the date of service referenced in note, and I agree with, and take responsibility for the plan of care. Vic Amado, DO Subjective Patient seen and examined. Chart, medications, telemetry reviewed. Ongoing shortness of breath, orthopnea and PND. Peripheral edema improved. No chest pain. No palpitations. SpO2 90% on 15 L/min via nasal cannula. Cumulative I's/O's -801 mL overall Blood pressure hypertensive, 176/76 Creatinine essentially stable, 1.83 mg/dL this morning Telemetry: Sinus with atrial ectopy, heart rates predominantly in the 60s Review of Systems Review of Systems: Complete Review of Systems is as stated above, negative, or noncontributory. Physical Exam Physical Exam: General: A&Ox3. No acute distress. HENT: Normocephalic. Atraumatic. Eyes: PER. Conjunctiva pink, sclera clear. Neck: + JVD. Heart: Regular at 70 bpm. No murmur appreciated. Lungs: Absent breath sounds at the right base. Clear on the left. No wheeze. Abdomen: +BS. Soft. Nontender. No masses or organomegaly. Extremities: Marked lymphedematous changes, 1-2+ edema Limited neurological examination is without focal deficits. Pulses: Posterior tibial=0/4. Results & Data Vital Signs (Past 12 Hours) Vital Signs Temp Pulse Pulse Resp BP BP Pulse Ox 02/08/24 07:39 36.8 C 66 20 176/76 H 90 02/08/24 07:31 63 22 90 02/08/24 03:57 36.9 C 62 170/74 H 91 02/08/24 00:15 36.7 C 58 L 19 151/72 H 93 02/07/24 23:31 59 L 24 91 02/07/24 23:09 58 L O2 Del Method O2 Flow Rate FiO2 02/08/24 07:39 Nasal Cannula 15 02/08/24 07:31 Nasal Cannula 15 02/08/24 03:57 High Flow Nasal Cannula 15 02/08/24 00:15 BiPAP 02/07/24 23:31 60 02/07/24 23:09 Laboratory Results CBC 02/08/24 Range/Units 06:37 WBC 9.08 (4.8-10.8) K/ul RBC 3.83 L (4.20-5.40) M/uL Hgb 9.9 L (12.0-16.0) g/dl Hct 31.3 L (37.0-47.0) % Plt Count 248 (130-400) K/uL Comprehensive Metabolic Panel 02/08/24 Range/Units 06:37 Sodium 140 (136-145) mmol/L Potassium 4.7 (3.5-5.1) mmol/L Chloride 104 (98-107) mmol/L Carbon Dioxide 32 (21-32) mmol/L BUN 65 H (6-23) mg/dl Creatinine 1.83 H (0.6-1.2) mg/dl Glucose 105 H (70-99(Fasting)) mg/dl Calcium 9.4 (8.6-10.3) mg/dl Intake and Output 02/07/24 02/08/24 02/08/24 22:59 06:59 14:59 Output Total 900 / 1501 301 / 1501 Balance -900 / -1001 -301 / -1001 Output: Other 300 / 300 Urine Amount (Catheter) 900 / 1200 External 900 / 1200 # Bowel Movements
--- NOTE | 2024-02-08 11:16 | Pulmonology Progress Note ---
Date of Service February 08, 2024 Assessment & Plan (1) Acute dyspnea: Plan: As previously noted, appears to be related to volume overload in the setting of heart failure. Likely contributing to her bilateral effusions as well. Ultimately, the patient would benefit from significant diuresis and volume offloading. Patient has declined CPAP therapy which would be of benefit for her as well. Continue to titrate down supplemental oxygen as tolerated. RIGHT gr eater than left effusions. Would see how she responds to CPAP therapy and diuresis prior to intervention at this point. Do not disagree with completion of antibiotics course in the setting of possible chronic aspiration event as well. (2) Acute hypoxemic respiratory failure: Plan: As above. Titrate down supplemental oxygen as tolerated. Continue with pulmonary toileting including flutter valve and incentive spirometry. (3) Acute on chronic heart failure with preserved ejection fraction (HFpEF): Plan: Continue with management per primary service and cardiology. Admission and Anticipated Discharge Date Admission Date: February 06, 2024 Subjective Patient seen and evaluated bedside. She reports she feels as though her breathing has improved somewhat. She does remain on 15 L nasal cannula. She did not use CPAP overnight secondary to discomfort. She complains of no chest pain, but has had a cough which is minimally productive. No hemoptysis noted. Review of Systems Review of Systems: As per subjective. Physical Exam Physical Exam: VITAL SIGNS Vital signs and nursing notes were reviewed. GENERAL 63-year-old female appearing her stated age who is in mild distress. Communicates well with provider and answers questions appropriately. SKIN Without rashes or lesions. MOUTH/OROPHARYNX Without perioral cyanosis. LUNGS Kyphotic appearing. Diminished breath sounds. CARDIAC RRR with S1/S2. No murmur, rubs, or gallops appreciated. EXTREMITIES Moderate pretibial edema present. +3/5 radial palpated throughout. PSYCH A&Ox3 and cooperates fully with examiner. Pt is very pleasant and interacts well with examiner. Results & Data Results & Data Vital Signs (Past 12 Hours) Vital Signs Temp Pulse Pulse Resp BP BP Pulse Ox 02/08/24 07:39 36.8 C 66 20 176/76 H 90 02/08/24 07:31 63 22 90 02/08/24 06:00 63 02/08/24 03:57 36.9 C 62 170/74 H 91 02/08/24 00:15 36.7 C 58 L 19 151/72 H 93 02/07/24 23:31 59 L 24 91 O2 Del Method O2 Flow Rate FiO2 02/08/24 07:39 Nasal Cannula 15 02/08/24 07:31 Nasal Cannula 15 02/08/24 06:00 02/08/24 03:57 High Flow Nasal Cannula 15 02/08/24 00:15 BiPAP 02/07/24 23:31 60 PG Care Time/CCT Total # of Minutes Spent Total Time Spent with Patient: Total time spent is greater than 50% in coordination of care (as documented) at patient's floor/unit and/or counseling patient: Coding Level of Care Code 52317 SUB INP/OBS CARE 07/09MIN Diagnoses Acute dyspnea R06.00 Acute hypoxemic respiratory failure J96.01 Acute on chronic heart failure with preserved ejection fraction (HFpEF) I50.33
--- NOTE | 2024-02-08 16:15 | XRay Report ---
XR chest 1V portable HISTORY: ff up pleural effusion COMPARISON: Chest 02/06/2024. FINDINGS: No pneumothorax. Bilateral pleural effusions and bibasilar densities persist. The heart rem ains enlarged. Pulmonary edema remains unchanged. No acute fractures identified. IMPRESSION: 1. Cardiomegaly with pulmonary edema and bilateral pleural effusions. This is similar to the prior st udy. 2. Bibasilar densities persist and may represent atelectasis or pneumonia. ACT 112: Negative or not required by law. Electronically signed by: Giuliano Loera M.D. 02/08/2024 4:13 PM
[2024-02-08] MEDS: FUROSEMIDE 40 MG/4 ML VIAL IV SCH (17:04)
--- NOTE | 2024-02-08 17:50 | Hospitalist Progress Note ---
Date of Service February 08, 2024 Assessment & Plan (1) Acute and chronic respiratory failure: (2) Pneumonia: (3) Pulmonary hypertension: (4) (HFpEF) heart failure with preserved ejection fraction: (5) Acute kidney injury superimposed on chronic kidney disease: (6) Hypothyroidism: (7) CAD (coronary artery disease): (8) Hypertension: Plan per admitting service notes with addendum: This is a 63-year-old female who has a significant past medical history of insulin-dependent T2DM, chronic hypoxic respiratory failure in 2-4L NC O2 at baseline, RADHA on nocturnal oxygen, pulmonary hypertension, morbid obesity, HFpEF, history of CVA, HTN, HLD, CKD and depression with anxiety who presents to ED secondary to progressive SOB since yesterday and was found to have acute on chronic respiratory failure in setting of PNA. Acute on chronic hypoxic respiratory failure Bilateral PNA Bilateral pleural effusion Was hypoxic at 78% per ED report despite oxymask, improved on bipap Afebrile, no leukocytosis, BNP 142, procal within normal range, respiratory viral panel negative CXR with cardiomegaly without evidence of congestive failure, presence of airspace consolidation in the mid to lower lungs bilaterally with small pleural effusions CT chest wo con to better visualize Started on empiric vanc and cefepime MRSA screen negative, will discontinue vanco Duonebs QID PRN, mucinex, mucomyst Routine pulm consult 02/06 currently on oxymask Lasix 60mg iv started monitor diuresis continue IV abx 02/07 continue Oxymask, Lasix 60mg IV HFpEF Clinical hx more consistent with PNA above, CXR without evidence of congestive failure but pleural effusion However weight significantly up from previous - awaiting standing weight, CT chest 2D echo from Jul 2023 with EF 60-65%, grade 1 diastolic dysfunction, left atrium moderately dilated, mild to moderate MR and elevated RVSP at 40 to 50 mmHg Took AM 40mg Torsemide, due for 20mg this evening Reassess volume status , BMP in AM 02/06 per above CKD stage III Cr seems to range from 1.2-1-5 as an outpatient and 1.5-2 per hospital records Cr 2.05 is higher limit of normal In setting of infection Hold PM lasix dose Monitor with daily BMP, continue to avoid further nephrotoxic agents as able Hx Lung nodules Subcarinal Lymphadenopathy Follows with pulm DM II Last A1c 8.1 on 7/16/24 Hold home agents Basal/bolus insulin per protocol while admitted BSG AC HS CAD with hx of Stent HLD Continue home aspirin, statin, Toprol Hypertension Continue Toprol, hydralazine History of CVA MRI brain 08/08 revealed small acute infarcts in bilateral occipital lobe concerning for embolic infarcts Per previous notes, no anticoagulation recommended given significant fall risk and vision issues unless clear arrhythmias confirmed Still awaiting zio monitoring per OP notes, due to see cards in late January RADHA, untreated, cpap noncompliant Pulmonary hypertension Continue sildenafil TID Possible that RADHA is contributing, but patient reports difficulty tolerating cpap mask Continue BIPAP Q HS inpatient Due to see sleep medicine on 02/09/24 Depression with anxiety Continue Lexapro Morbid Obesity, BMI 49.6 Continue to encourage diet and lifestyle modifications DVT Ppx: SQ heparin Code status: DNR/DNI PCP: [facility] Dispo: pending will need PT/OT eval Admission and Anticipated Discharge Date Admission Date: February 06, 2024 Subjective ff up for pleural effusion, etc seen resting in bed, comfortable on oxymask states breathing is better than yesterday no cough, fever/chills no other symptoms Review of Systems Review of Systems: all noted and negative except for above Physical Exam Physical Exam: General- oriented x 3, not in distress, speaks in sentences with no effort or accessory muscle use Eyes- anicteric Neck- no JVD Lungs- mild decreased breath sounds bilaterally Heart- normal rate, regular rhythm; no murmurs Abdomen- normal bowel sounds, nondistended, soft, no tenderness Extremities- no pretibial edema, no calf tenderness Neuro- alert, oriented x 3; no gross focal neurologic deficits Skin- warm & dry Results & Data Results & Data Vital Signs (Past 12 Hours) Vital Signs Temp Pulse Pulse Resp BP Pulse Ox O2 Del Method 02/08/24 15:30 63 24 91 High Flow Nasal Cannula 02/08/24 15:04 37.0 C 62 20 156/66 H 87 L Nasal Cannula 02/08/24 14:30 66 02/08/24 11:36 36.8 C 66 20 150/74 H 90 Nasal Cannula 02/08/24 09:00 Nasal Cannula 02/08/24 07:39 36.8 C 66 20 176/76 H 90 Nasal Cannula 02/08/24 07:31 63 22 90 Nasal Cannula 02/08/24 06:00 63 O2 Flow Rate FiO2 02/08/24 15:30 40 100 02/08/24 15:04 3 02/08/24 14:30 02/08/24 11:36 15 02/08/24 09:00 15 02/08/24 07:39 15 02/08/24 07:31 15 02/08/24 06:00 all noted and reviewed including below
[2024-02-08] MEDS: cefUROXime axetil 500 MG TAB PO SCH (20:34)
[2024-02-09] MEDS: ATORVASTATIN 40 MG TAB PO SCH (07:43)
--- NOTE | 2024-02-09 09:34 | Pulmonology Progress Note ---
Date of Service February 09, 2024 Assessment & Plan (1) Acute dyspnea: Plan: As previously noted, appears to be related to volume overload in the setting of heart failure. Likely contributing to her bilateral effusions as well. Ultimately, the patient would benefit from significant diuresis and volume offloading. She was able to tolerate CPAP overnight which will continue to be beneficial for the patient moving forward. She was encouraged to use this overnight and with any naps. She does not appear with any worsening dyspnea on exam at this time. (2) Acute hypoxemic respiratory failure: Plan: As above. Patient had an acute change in oxygen requirement yesterday. On review of documentation, the patient has not been on anticoagulation since hospitalization. She does have an ASHLY or we would immediately perform a CTA. We will start with ultrasound of the lower extremities and reassess. We will also obtain a follow-up BMP today to see if her renal function has improved. Thromboembolic process certainly could be causing an acute increase in her oxygen requirement. She does have effusions, however they are not substantially large that would be resulting in this profound of hypoxemia. (3) Acute on chronic heart failure with preserved ejection fraction (HFpEF): Plan: Continue with management per primary service and cardiology. (4) Pleural effusion, right: Plan Thank you for allowing us to participate in the care of this patient. Pulmonary medicine will continue to follow. Admission and Anticipated Discharge Date Admission Date: February 06, 2024 Supervising Physician Co-Signing Physician Notes Patient seen with the CASTRO. Agree with the note as above. I performed a right- sided thoracentesis and removed approximately 1000 mL of fluid. We were able to decrease her FiO2 to 45%. She is feeling better currently. She has a significant amount of bibasilar atelectasis and has been essentially bedbound. Recommend aggressive pulmonary toilet with flutter valve, incentive spirometry and out of bed to chair. Agree with continued diuresis. Right pleural fluid specimen will be sent to the lab for chemistries, cytology and cultures. Subjective Patient seen and evaluated at bedside. She was able to tolerate her PAP mask overnight. She remains requiring 40 L and 85% of high level of nasal cannula. She states she feels about the same and does not feel any worse from a respiratory standpoint. Review of Systems Review of Systems: As per subjective. Physical Exam Physical Exam: VITAL SIGNS Vital signs and nursing notes were reviewed. GENERAL 63-year-old female appearing her stated age who is in mild distress. Communicates well with provider and answers questions appropriately. SKIN Without rashes or lesions. MOUTH/OROPHARYNX Without perioral cyanosis. LUNGS Kyphotic appearing. Diminished breath sounds. CARDIAC RRR with S1/S2. No murmur, rubs, or gallops appreciated. EXTREMITIES Moderate pretibial edema present. +3/5 radial palpated throughout. PSYCH A&Ox3 and cooperates fully with examiner. Pt is very pleasant and in teracts well with examiner. Results & Data Results & Data Vital Signs (Past 12 Hours) Vital Signs Temp Pulse Pulse Resp BP Pulse Ox O2 Del Method 02/09/24 09:13 High Flow Nasal Cannula 02/09/24 08:45 62 02/09/24 07:35 36.8 C 68 22 147/64 H 91 High Flow Nasal Cannula 02/09/24 07:13 63 15 93 High Flow Nasal Cannula 02/09/24 07:12 63 15 93 High Flow Nasal Cannula 02/09/24 04:00 36.7 C 61 20 168/75 H 95 Nasal CPAP 02/09/24 03:25 62 20 92 High Flow Nasal Cannula 02/08/24 22:51 60 02/08/24 22:22 59 L 22 94 02/08/24 22:00 36.7 C 57 L 19 171/71 H 97 BiPAP 02/08/24 21:48 High Flow Nasal Cannula O2 Flow Rate FiO2 02/09/24 09:13 40 85 02/09/24 08:45 02/09/24 07:35 02/09/24 07:13 40 90 02/09/24 07:12 40 90 02/09/24 04:00 02/09/24 03:25 40 100 02/08/24 22:51 02/08/24 22:22 100 02/08/24 22:00 02/08/24 21:48 40 PG Care Time/CCT Total # of Minutes Spent Total Time Spent with Patient: Total time spent is greater than 50% in coordination of care (as documented) at patient's floor/unit and/or counseling patient: Coding Level of Care Code 90664 SUB INP/OBS CARE 2/35MIN Diagnoses Acute dyspnea R06.00 Acute hypoxemic respiratory failure J96.01 Acute on chronic heart failure with preserved ejection fraction (HFpEF) I50.33 Pleural effusion, right J90
[2024-02-09 10:17] LABS: BUN Creatinine Ratio 32.6 (10-20); Calcium 9.2 mg/dl (8.6-10.3); Creatinine Clr Calc Pharmacy 34.4 ml/min; Est GFR (African American) 30.9 ml/min; Est GFR (Non-African American) 26.7 ml/min; Potassium 4.2 mmol/L (3.5-5.1)
[2024-02-09] MEDS: ONDANSETRON INJ 2 MG/ML 2 ML VIAL IV PRN (11:02)
--- NOTE | 2024-02-09 11:18 | Ultrasound Report ---
BILATERAL LOWER EXTREMITY VENOUS DOPPLER CLINICAL HISTORY: Shortness of breath. Evaluate for deep venous thrombus. COMPARISON STUDY: No previous studies for comparison. TECHNIQUE: Sonography of the deep venous system of the bilateral lower extremities was performed. Co mpression and augmentation were evaluated. FINDINGS: This exam was compromised due to suboptimal penetration. The bilateral common femoral, supe rficial femoral and popliteal veins were compressible. Augmentation was normal. Flow was shown within the deep calf vessels. IMPRESSION: Exam compromised due to suboptimal penetration but no evidence of deep venous thrombus wi thin the bilateral lower extremities. ACT 112: Negative or not required by law. Electronically signed by: Bruce Cai M.D. 02/09/2024 11:16 AM
--- NOTE | 2024-02-09 12:05 | Cardiology Progress Note ---
Date of Service February 09, 2024 Assessment & Plan (1) Acute and chronic respiratory failure: (2) Acute on chronic heart failure with preserved ejection fraction (HFpEF): (3) Pneumonia: Plan Complex, morbidly obese 63-year-old female with untreated obstructive sleep apnea, nocturnal hypoxemia, pulmonary hypertension (chronically prescribed sildenafil by certified technician in [place]), pickwickian physiology. Patient admitted with recurrent acute decompensated diastolic heart failure, HFpEF, in setting of stage III chronic kidney disease, underlying ASCVD (status post staged PCI, LAD on December 27, 2019, RCA on January 24, 2020), possible pneumonia. Ongoing hypervolemia observed. Mild obligatory rise in creatinine thus far. Recommendations: Continue furosemide at 60 mg IV twice per day for now Monitor I/O's, daily weight, daily metabolic panels. Decrease metoprolol dosing. Refer for resting echocardiography Continue amlodipine and hydralazine for now Continue aspirin and statin (switching rosuvastatin to atorvastatin given CKD) No JAMIE, ARB, ARNi, or mineralocorticoid receptor antagonists, RE: renal insufficiency, hyperkalemia. Admission and Anticipated Discharge Date Admission Date: February 06, 2024 Supervising Physician Co-Signing Physician Notes Attending attestation: Case reviewed with the advanced practitioner. I have personally performed a history and physical examination on the patient. I have reviewed the advanced practitioner's documentation on the date of service referenced in note, and I agree with, and take responsibility for the plan of care. Vic Amado, DO Subjective Patient seen and examined. Chart, medications, and telemetry reviewed. SpO2 91% on 35 L/min via high flow nasal cannula "I think I am doing better. I am just worn out. I had motion sickness when down the ultrasound." Telemetry: Sinus in the 50s and 60s I/O's: +200, -1001, -721 (-1522 mL overall) Review of Systems Review of Systems: Complete Review of Systems is as stated above, negative, or noncontributory. Physical Exam Physical Exam: General: A&Ox3. HENT: Normocephalic. Atraumatic. Eyes: PER. Conjunctiva pink, sclera clear. Neck: + JVD. Heart: Regular at 70 bpm. No murmur appreciated. Lungs: Diminished. Decreased. Absent breath sounds at the right base. Clear on the left. No wheeze. Abdomen: +BS. Soft. Nontender. No masses or organomegaly. Extremities: Marked lymphedematous changes, 1-2+ edema Limited neurological examination is without focal deficits. Pulses: Posterior tibial=0/4. Results & Data Vital Signs (Past 12 Hours) Vital Signs Temp Pulse Pulse Resp BP Pulse Ox O2 Del Method 02/09/24 11:30 36.7 C 58 L 19 144/77 H 91 High Flow Nasal Cannula 02/09/24 09:13 High Flow Nasal Cannula 02/09/24 08:45 62 02/09/24 07:35 36.8 C 68 22 147/64 H 91 High Flow Nasal Cannula 02/09/24 07:13 63 15 93 High Flow Nasal Cannula 02/09/24 07:12 63 15 93 High Flow Nasal Cannula 02/09/24 04:00 36.7 C 61 20 168/75 H 95 Nasal CPAP 02/09/24 03:25 62 20 92 High Flow Nasal Cannula O2 Flow Rate FiO2 02/09/24 11:30 35 80 02/09/24 09:13 40 85 02/09/24 08:45 02/09/24 07:35 02/09/24 07:13 40 90 02/09/24 07:12 40 90 02/09/24 04:00 02/09/24 03:25 40 100 Laboratory Results Comprehensive Metabolic Panel 02/09/24 Range/Units 09:32 Sodium 138 (136-145) mmol/L Potassium 4.2 (3.5-5.1) mmol/L Chloride 102 (98-107) mmol/L Carbon Dioxide 29 (21-32) mmol/L BUN 63 H (6-23) mg/dl Creatinine 1.93 H (0.6-1.2) mg/dl Glucose 160 H (70-99(Fasting)) mg/dl Calcium 9.2 (8.6-10.3) mg/dl Intake and Output 02/08/24 02/09/24 02/09/24 22:59 06:59 14:59 Intake Total 120 / 980 120 / 980 Output Total 1100 / 1701 600 / 1701 Balance -980 / -721 -480 / -721 Intake: Oral 120 / 980 120 / 980 Output: Urine Amount (Catheter) 1100 / 1700 600 / 1700 External 300 / 300 [place]/Indwelling 800 / 1400 600 / 1400 Other: Weight 115.7 kg Weight Measurement Method Built in [facility]
--- NOTE | 2024-02-09 12:52 | Procedure Note ---
Procedure Note Date of Service February 09, 2024 Procedure: Diagnostic and therapeutic ultrasound-guided catheter thoracentesis Grip: Dr. Paras Jordan Indication: Right pleural effusion Consent: Signed by patient and verified with timeout prior to procedure Anesthesia: 8 mL's of 1% lidocaine without epinephrine given locally Procedure: Consent was verified and timeout performed. Appropriate imaging studies were reviewed prior to the procedure. Patient was placed in a seated position and limited thoracic ultrasound was performed of the right chest. See separate imaging. The site appropriate for thoracentesis was selected. The skin was prepped and draped in normal sterile fashion. Lidocaine was used for local analgesia. Fluid was aspirated via the finder needle. A small skin leida was made with the scalpel and the catheter over the needle apparatus was advanced over the rib into the pleural space. Using the syringe one-way valve system, a total of thousand mL's of serosanguineous fluid was removed. Procedure was terminated due to lack of flow. The catheter was removed and observed to be intact. A sterile dressing was applied. Post procedure chest x-ray was ordered. Fluid was sent for LDH, total protein, cell count, glucose, pH, cytology, AFB cultures, gram stain and culture and fungal cultures. The patient tolerated the procedure well without obvious complication. [facility] [place]odes (Charges) Pulmonary/Thoracic Procedure 1: Pulmonary and Thoracic: 90609 Thoracentesis w imaging Coding CPT Codes Pulmonary/Thoracic - Pulmonary and Thoracic: 22344 Thoracentesis w imaging ([id number]) Additional Codes Date of Service ([email or web address])
[2024-02-09 13:44] LABS: Amylase Pleural Fluid < 10 U/L; Glucose Pleural Fluid 165 mg/dl; LDH Pleural Fluid 81 U/L; Total Protein Pleural Fluid < 3.0 gm/dl
[2024-02-09 14:06] LABS: Appearance Pleural Fluid Cloudy; Color Pleural Fluid Amber; RBC Pleural Fluid Auto 25000 /uL; Source Pleural Fluid Right Lung; WBC Pleural Fluid Auto 430 /uL
--- NOTE | 2024-02-09 14:17 | XRay Report ---
XR chest 1V portable CLINICAL HISTORY: s/p RIGHT sided thora COMPARISON STUDY: Chest CT February 06, 2024. Chest radiograph February 08, 2024. FINDINGS: There is no pneumothorax following right thoracentesis. Right pleural effusion has signific antly decreased in size since prior exam. A small left pleural effusion persists. Left basilar opacit y is again noted. Right lower lung aeration has improved. Cardiomediastinal silhouette is stable. Pul monary edema persists. IMPRESSION: 1. No pneumothorax following right thoracentesis. Significant decrease in size of the right pleural e ffusion. Improved right lower lung aeration. 2. Small left pleural effusion with persistent left basilar opacity. 3. Cardiomegaly with pulmonary edema. ACT 112: Negative or not required by law. Electronically signed by: Bruce Cai M.D. 02/09/2024 2:16 PM
[2024-02-09 14:18] LABS: Lymphocytes, Fluid 38 %; Mono,Macrophage,Mesothelial 59 %; Neutrophils, Fluid 3 %
--- NOTE | 2024-02-09 15:45 | Hospitalist Progress Note ---
Date of Service February 09, 2024 Assessment & Plan (1) Acute and chronic respiratory failure: (2) Pneumonia: (3) Pulmonary hypertension: (4) (HFpEF) heart failure with preserved ejection fraction: (5) Acute kidney injury superimposed on chronic kidney disease: (6) Hypothyroidism: (7) CAD (coronary artery disease): (8) Hypertension: Plan per admitting service notes with addendum: This is a 63-year-old female who has a significant past medical history of insulin-dependent T2DM, chronic hypoxic respiratory failure in 2-4L NC O2 at baseline, RADHA on nocturnal oxygen, pulmonary hypertension, morbid obesity, HFpEF, history of CVA, HTN, HLD, CKD and depression with anxiety who presents to ED secondary to progressive SOB since yesterday and was found to have acute on chronic respiratory failure in setting of PNA. Acute on chronic hypoxic respiratory failure Bilateral pleural effusion Possible Bilateral PNA Was hypoxic at 78% per ED report despite oxymask, improved on bipap Afebrile, no leukocytosis, BNP 142, procal within normal range, respiratory viral panel negative CXR with cardiomegaly without evidence of congestive failure, presence of airspace consolidation in the mid to lower lungs bilaterally with small pleural effusions MRSA screen negative Duonebs QID PRN, mucinex, mucomyst Routine pulm consult CT chest: 1. Cardiomegaly with evidence of congestive failure and pulmonary edema. Radiographic follow-up to resolution is recommended. 2. Right larger than left pleural effusions with dependent consolidation. 3. Mildly enlarged mediastinal lymph nodes are nonspecific and unchanged from previous. 4. Cirrhotic liver morphology and small volume perihepatic ascites. 5. Additional findings as above. Cardiology and pulmonary service consulted Given Lasix 60 mg IV twice daily Yesterday, patient's respiratory status worsened, placed on high flow O2, patient declining BiPAP due to extreme intolerance Today, patient status post right thoracentesis, 1 L fluid removed Follow-up culture and pathology results Remains on high flow O2 but reports breathing is improved compared to yesterday Continue Lasix 60 mg IV twice daily Continue cefuroxime 500 mg p.o. twice daily HFpEF Clinical hx more consistent with PNA above, CXR without evidence of congestive failure but pleural effusion However weight significantly up from previous - awaiting standing weight, CT chest 2D echo from Jul 2023 with EF 60-65%, grade 1 diastolic dysfunction, left atrium moderately dilated, mild to moderate MR and elevated RVSP at 40 to 50 mmHg management per above CKD stage III Cr seems to range from 1.2-1-5 as an outpatient and 1.5-2 per hospital records crea 1.7--> 1.9 monitor while on Lasix Hx Lung nodules Subcarinal Lymphadenopathy Follows with pulmonary DM II Last A1c 8.1 on 12/29/23 Hold home agents Basal/bolus insulin per protocol while admitted BSG AC HS CAD with hx of Stent HLD Continue home aspirin, statin, Metoprolol Hypertension Continue Toprol, hydralazine History of CVA MRI brain 08/08 revealed small acute infarcts in bilateral occipital lobe concerning for embolic infarcts Per previous notes, no anticoagulation recommended given significant fall risk and vision issues unless clear arrhythmias confirmed Still awaiting zio monitoring per OP notes, due to see cards in late January RADHA, untreated, cpap noncompliant Pulmonary hypertension Continue sildenafil TID Possible that RADHA is contributing, but patient reports difficulty tolerating cpap mask Continue BIPAP Q HS inpatient Due to see sleep medicine on 02/09/24 Depression with anxiety Continue Lexapro Morbid Obesity, BMI 49.6 Continue to encourage diet and lifestyle modifications DVT Ppx: SQ heparin Code status: DNR/DNI PCP: Vimal Dispo: pending will need PT/OT eval Admission and Anticipated Discharge Date Admission Date: February 06, 2024 Subjective ff up for acute on chronic respiratory failure secondary to acute chf, bilateral pleural effusion, etc seen resting in bed, on high flow 02, comfortable states she feels improved today compared to yesterday breathing improving after thoracentesis no cough, chills, fever no other symptoms Review of Systems Review of Systems: all noted and negative except for above Physical Exam Physical Exam: General- oriented x 3, not in distress, speaks in sentences with no effort or accessory muscle use Eyes- anicteric Neck- no JVD Lungs- mildly decreased breath sounds bilaterally no wheezing Heart- normal rate, regular rhythm; no murmurs Abdomen- normal bowel sounds, nondistended, soft, nontender Extremities-grade 1-2 lower extremity edema- improving, no calf tenderness Neuro- alert, oriented x 3; no gross focal neurologic deficits Skin- warm & dry Results & Data Results & Data Vital Signs (Past 12 Hours) Vital Signs Temp Pulse Pulse Resp BP Pulse Ox O2 Del Method 02/09/24 15:32 59 L 02/09/24 15:18 68 23 90 High Flow Nasal Cannula 02/09/24 11:30 36.7 C 58 L 19 144/77 H 91 High Flow Nasal Cannula 02/09/24 10:57 61 16 93 High Flow Nasal Cannula 02/09/24 09:13 High Flow Nasal Cannula 02/09/24 08:45 62 02/09/24 07:35 36.8 C 68 22 147/64 H 91 High Flow Nasal Cannula 02/09/24 07:13 63 15 93 High Flow Nasal Cannula 02/09/24 07:12 63 15 93 High Flow Nasal Cannula 02/09/24 04:00 36.7 C 61 20 168/75 H 95 Nasal CPAP O2 Flow Rate FiO2 02/09/24 15:32 02/09/24 15:18 35 50 02/09/24 11:30 35 80 02/09/24 10:57 35 80 02/09/24 09:13 40 85 02/09/24 08:45 02/09/24 07:35 02/09/24 07:13 40 90 02/09/24 07:12 40 90 02/09/24 04:00 all noted and reviewed including below
[2024-02-09 16:25] LABS: D Dimer 1280 ug/L FEU (0-500)
[2024-02-10 07:41] LABS: BUN Creatinine Ratio 31.6 (10-20); Calcium 9.2 mg/dl (8.6-10.3); Est GFR (African American) 28.6 ml/min; Est GFR (Non-African American) 24.7 ml/min; Potassium 4.6 mmol/L (3.5-5.1)
[2024-02-10] MEDS: FUROSEMIDE 40 MG/4 ML VIAL IV SCH (08:16)
[2024-02-10] MEDS: LANTUS PER UNIT CHARGE SQ SCH (08:18)
[2024-02-10] MEDS: METOPROLOL SUCC 50MG EXT REL TAB PO SCH (08:19)
--- NOTE | 2024-02-10 08:41 | Hospitalist Progress Note ---
Date of Service February 10, 2024 Assessment & Plan (1) Acute and chronic respiratory failure: (2) Pneumonia: (3) Pulmonary hypertension: (4) (HFpEF) heart failure with preserved ejection fraction: (5) Acute kidney injury superimposed on chronic kidney disease: (6) Hypothyroidism: (7) CAD (coronary artery disease): (8) Hypertension: Plan per admitting service notes with addendum: This is a 63-year-old female who has a significant past medical history of insulin-dependent T2DM, chronic hypoxic respiratory failure in 2-4L NC O2 at baseline, RADHA on nocturnal oxygen, pulmonary hypertension, morbid obesity, HFpEF, history of CVA, HTN, HLD, CKD and depression with anxiety who presents to ED secondary to progressive SOB since yesterday and was found to have acute on chronic respiratory failure in setting of PNA. Acute on chronic hypoxic respiratory failure Bilateral pleural effusion s/p right sided thoracentesis on 02/08 Possible Bilateral PNA Was hypoxic at 78% per ED report despite oxymask, improved on bipap Afebrile, no leukocytosis, BNP 142, procal within normal range, respiratory viral panel negative CXR with cardiomegaly without evidence of congestive failure, presence of airspace consolidation in the mid to lower lungs bilaterally with small pleural effusions MRSA screen negative CT chest: 1. Cardiomegaly with evidence of congestive failure and pulmonary edema. Radiographic follow-up to resolution is recommended. 2. Right larger than left pleural effusions with dependent consolidation. 3. Mildly enlarged mediastinal lymph nodes are nonspecific and unchanged from previous. 4. Cirrhotic liver morphology and small volume perihepatic ascites. 5. Additional findings as above. Cardiology and pulmonary service consulted Given Lasix 60 mg IV twice daily with mild diuresis; increased to tid Pleural fluid analysis suggestive of transudative pattern; likely secondary to HFpEF. On antibiotics for possible pneumonia Acute on chronic HFpEF 2D echo from Jul 2023 with EF 60-65%, grade 1 diastolic dysfunction, left atrium moderately dilated, mild to moderate MR and elevated RVSP at 40 to 50 mmHg management per above; currently on lasix CKD stage III Cr seems to range from 1.2-1-5 as an outpatient and 1.5-2 per hospital records crea 1.7--> 2.0 Monitor fo now Hx Lung nodules Subcarinal Lymphadenopathy Follows with pulmonary DM II Last A1c 8.1 on 12/29/23 Hold home agents Basal/bolus insulin per protocol while admitted BSG AC HS CAD with hx of Stent HLD Continue home aspirin, statin, Metoprolol Hypertension Continue Toprol, hydralazine History of CVA MRI brain 08/08 revealed small acute infarcts in bilateral occipital lobe concerning for embolic infarcts Per previous notes, no anticoagulation recommended given significant fall risk and vision issues unless clear arrhythmias confirmed Still awaiting zio monitoring per OP notes, due to see cards in late January RADHA, untreated, cpap noncompliant Pulmonary hypertension Continue sildenafil TID Possible that RADHA is contributing, but patient reports difficulty tolerating cpap mask Continue BIPAP Q HS inpatient Due to see sleep medicine on 02/09/24 Depression with anxiety Continue Lexapro Morbid Obesity, BMI 49.6 Continue to encourage diet and lifestyle modifications DVT Ppx: SQ heparin Code status: DNR/DNI PCP: Vimal Dispo: pending will need PT/OT eval Time spent evaluating patient, direct bedside care, chart review, placing orders, interpretation of diagnostic studies, discussion with consultants, patient, and family members, as well as other required patient management activities is 50 minutes Please note the above document was generated using voice recognition software. It may contain grammatical, syntax or spelling errors. Any formal questions or concerns about the content, text or information contained within the body of this dictation should be directly addressed to the provider for clarification Admission and Anticipated Discharge Date Admission Date: February 06, 2024 Subjective Patient seen and examined at bedside. She reports shortness of breath on exertion. Reports overall slight improved No significant events overnight Review of Systems Review of Systems: All systems reviewed & are unremarkable except as noted in Subjective Physical Exam Physical Exam: General- oriented x 3, not in distress, speaks in sentences with no effort or accessory muscle use Eyes- anicteric Neck- no JVD Lungs- Decreased breath sound at bases. Heart- normal rate, regular rhythm; no murmurs Abdomen- normal bowel sounds, nondistended, soft, nontender Extremities-grade 1-2 lower extremity edema- improving, no calf tenderness Neuro- alert, oriented x 3; no gross focal neurologic deficits Skin- warm & dry Results & Data Results & Data Vital Signs (Past 12 Hours) Vital Signs Temp Pulse Pulse Resp BP Pulse Ox O2 Del Method 02/10/24 07:28 63 22 91 High Flow Nasal Cannula 02/10/24 03:43 63 20 90 High Flow Nasal Cannula 02/10/24 03:41 36.8 C 67 18 187/71 H 90 High Flow Nasal Cannula 02/10/24 00:05 67 02/09/24 23:54 65 18 93 High Flow Nasal Cannula 02/09/24 23:21 36.8 C 66 19 172/75 H 94 High Flow Nasal Cannula 02/09/24 21:46 High Flow Nasal Cannula O2 Flow Rate FiO2 02/10/24 07:28 40 60 02/10/24 03:43 40 60 02/10/24 03:41 02/10/24 00:05 02/09/24 23:54 40 60 02/09/24 23:21 02/09/24 21:46 40
[2024-02-10] MEDS ORDERED: FUROSEMIDE 40 MG/4 ML VIAL IV SCH (09:00)
--- NOTE | 2024-02-10 09:45 | XRay Report ---
XR chest 1V portable CLINICAL HISTORY: hypoxia COMPARISON STUDY: Chest CT February 06, 2024. Chest radiograph February 09, 2024. FINDINGS: No pneumothorax. Small bilateral pleural effusions are present. Right basilar opacity has i ncreased. There is persistent left basilar opacity. Cardiomegaly is again noted with mild interstitia l thickening. IMPRESSION: 1. Cardiomegaly with persistent pulmonary edema. 2. Small bilateral pleural effusions. Increase in right basilar opacity which could reflect pneumonia or atelectasis. Persistent left basilar opacity. ACT 112: Negative or not required by law. Electronically signed by: Bruce Cai M.D. 02/10/2024 9:44 AM
--- NOTE | 2024-02-10 09:53 | Pulmonology Progress Note ---
Date of Service February 10, 2024 Assessment & Plan (1) Acute dyspnea: Plan: As previously noted, appears to be related to volume overload in the setting of heart failure. Likely contributing to her bilateral effusions as well. Patient did improve post RIGHT-sided thoracentesis. The LEFT-sided effusion is small and not amenable to thoracentesis at this time. Fluid appears transudative pointing towards previously documented heart failure issues. Patient should be wearing CPAP overnight. She was encouraged to use this overnight and with any naps. She does not appear with any worsening dyspnea on exam at this time. (2) Acute hypoxemic respiratory failure: Plan: As above. Patient had an acute change in oxygen requirement yesterday. On review of documentation, the patient has not been on anticoagulation since hospitalization. She does have an ASHLY or we would immediately perform a CTA. Ultrasound of the bilateral lower extremities was unremarkable. D-dimer was slightly elevated. Will order VQ scan today. Additionally, the patient has not been anticoagulated despite documentation of being on heparin throughout her hospitalization. We will place the patient on heparin subcu at this time pending ongoing evaluation for possible thromboembolic process. While her saturation has improved somewhat, still question possible thromboembolic event contributing to her worsening hypoxemia as her effusions have improved and likely would not be resulting in this marked of a hypoxic presentation. Continue to encourage incentive spirometry while awake (3) Acute on chronic heart failure with preserved ejection fraction (HFpEF): Plan: Continue with management per primary service and cardiology. (4) Pleural effusion, right: Plan Thank you for allowing us to participate in the care of this patient. Pulmonary medicine will continue to follow. Admission and Anticipated Discharge Date Admission Date: February 06, 2024 Subjective Patient seen and evaluated at bedside. She states that she is able to breathe markedly better after the thoracentesis yesterday. She offers no complaints of chest pain or worsening dyspnea. She is saturating well on 30 L 60% FiO2. She did not wear her CPAP device last night. Review of Systems Review of Systems: As per subjective. Physical Exam Physical Exam: VITAL SIGNS Vital signs and nursing notes were reviewed. GENERAL 63-year-old female appearing her stated age who is in mild distress. Communicates well with provider and answers questions appropriately. SKIN Without rashes or lesions. MOUTH/OROPHARYNX Without perioral cyanosis. LUNGS Kyphotic appearing. Diminished breath sounds. CARDIAC RRR with S1/S2. No murmur, rubs, or gallops appreciated. EXTREMITIES Moderate pretibial edema present. +3/5 radial palpated throughout. PSYCH A&Ox3 and cooperates fully with examiner. Pt is very pleasant and interacts well with examiner. Results & Data Results & Data Vital Signs (Past 12 Hours) Vital Signs Temp Pulse Pulse Resp BP Pulse Ox O2 Del Method 02/10/24 08:53 37.1 C 88 19 145/75 H 93 High Flow Nasal Cannula 02/10/24 07:28 63 22 91 High Flow Nasal Cannula 02/10/24 03:43 63 20 90 High Flow Nasal Cannula 02/10/24 03:41 36.8 C 67 18 187/71 H 90 High Flow Nasal Cannula 02/10/24 00:05 67 02/09/24 23:54 65 18 93 High Flow Nasal Cannula 02/09/24 23:21 36.8 C 66 19 172/75 H 94 High Flow Nasal Cannula O2 Flow Rate FiO2 02/10/24 08:53 30 70 02/10/24 07:28 40 60 02/10/24 03:43 40 60 02/10/24 03:41 02/10/24 00:05 02/09/24 23:54 40 60 02/09/24 23:21 PG Care Time/CCT Total # of Minutes Spent Total Time Spent with Patient: Total time spent is greater than 50% in coordination of care (as documented) at patient's floor/unit and/or counseling patient: Coding Level of Care Code 41442 SUB INP/OBS CARE 2/35MIN Diagnoses Acute dyspnea R06.00 Acute hypoxemic respiratory failure J96.01 Acute on chronic heart failure with preserved ejection fraction (HFpEF) I50.33 Pleural effusion, right J90
--- NOTE | 2024-02-10 11:30 | Cardiology Progress Note ---
Date of Service February 10, 2024 Assessment & Plan (1) Acute and chronic respiratory failure: (2) Acute on chronic heart failure with preserved ejection fraction (HFpEF): (3) Pneumonia: Plan Complex, morbidly obese 63-year-old female with untreated obstructive sleep apnea, nocturnal hypoxemia, pulmonary hypertension, pickwickian physiology. Patient admitted with recurrent acute decompensated diastolic heart failure, HFpEF, in setting of stage III chronic kidney disease, underlying ASCVD (status post staged PCI, LAD on December 27, 2019, RCA on January 24, 2020), possible pneumonia. Breathing improving with diuresis, more so following right-sided thoracentesis on February 09, 2024, removal of 1000 mL serosanguineous fluid. Ongoing hypervolemia observed. Creatinine continues to slowly increase. Recommendations: Continue IV furosemide, 60 mg twice a day Monitor I/O's, daily weight, daily metabolic panels. Metoprolol dosing decreased from 100 mg/day to 50 mg/day starting this AM Continue amlodipine, hydralazine, aspirin and statin (rosuvastatin switched to atorvastatin given CKD) No JAMIE, ARB, ARNi, or mineralocorticoid receptor antagonists, RE: renal insufficiency, hyperkalemia. PAP therapy encouraged at night and when napping during the day. Admission and Anticipated Discharge Date Admission Date: February 06, 2024 Supervising Physician Co-Signing Physician Notes Attending attestation: Case reviewed with the advanced practitioner. I have personally performed a history and physical examination on the patient. I have reviewed the advanced practitioner's documentation on the date of service referenced in note, and I agree with, and take responsibility for the plan of care. Vic Amado, DO Subjective Patient seen and examined. Chart, medications, telemetry reviewed "I feel better. My breathing is better. I slept good last night." No chest pain. No palpitations. I/Os: +200, -1001, -721, -2250 (-3772 mL overall) Review of Systems Review of Systems: Complete Review of Systems is as stated above, negative, or noncontributory. Physical Exam Physical Exam: General: A&Ox3. HENT: Normocephalic. Atraumatic. Eyes: PER. Conjunctiva pink, sclera clear. Neck: + JVD. Heart: Regular at 70 bpm. No murmur appreciated. Lungs: Diminished. Decreased. Absent breath sounds at the right base. Clear on the left. No wheeze. Abdomen: +BS. Soft. Nontender. No masses or organomegaly. Extremities: Marked lymphedematous changes, 1+ edema Limited neurological examination is without focal deficits. Pulses: Posterior tibial=0/4. Results & Data Vital Signs (Past 12 Hours) Vital Signs Temp Pulse Pulse Resp BP Pulse Ox O2 Del Method 02/10/24 11:08 67 20 91 Nasal Cannula 02/10/24 10:31 37.0 C 57 L 18 128/69 92 High Flow Nasal Cannula 02/10/24 08:53 37.1 C 88 19 145/75 H 93 High Flow Nasal Cannula 02/10/24 08:00 High Flow Nasal Cannula 02/10/24 08:00 60 02/10/24 07:28 63 22 91 High Flow Nasal Cannula 02/10/24 03:43 63 20 90 High Flow Nasal Cannula 02/10/24 03:41 36.8 C 67 18 187/71 H 90 High Flow Nasal Cannula 02/10/24 00:05 67 02/09/24 23:54 65 18 93 High Flow Nasal Cannula O2 Flow Rate FiO2 02/10/24 11:08 14 02/10/24 10:31 30 51 02/10/24 08:53 30 70 02/10/24 08:00 40 60 02/10/24 08:00 02/10/24 07:28 40 60 02/10/24 03:43 40 60 02/10/24 03:41 02/10/24 00:05 02/09/24 23:54 40 60 Laboratory Results Comprehensive Metabolic Panel 02/10/24 Range/Units 07:01 Sodium 137 (136-145) mmol/L Potassium 4.6 (3.5-5.1) mmol/L Chloride 101 (98-107) mmol/L Carbon Dioxide 30 (21-32) mmol/L BUN 65 H (6-23) mg/dl Creatinine 2.06 H (0.6-1.2) mg/dl Glucose 122 H (70-99(Fasting)) mg/dl Calcium 9.2 (8.6-10.3) mg/dl Intake and Output 02/09/24 02/10/24 02/10/24 22:59 06:59 14:59 Intake Total 100 / 100 Output Total 1800 / 2350 Balance -1700 / -2250 Intake: Oral 100 / 100 Output: Urine Amount (Catheter) 1800 / 2350 [place]/Indwelling 1800 / 235 Other: Weight 114.5 kg Weight Measurement Method Built in [facility] Diagnostic Findings February 09, 2024 TTE Interpretation Summary ([facility], Dr. Amado): Normal LV wall thickness. Normal LV wall motion. Normal LV systolic function. EF 55 to 60%. Mild aortic valve sclerosis without significant stenosis. Mild mitral regurgitation. Mildly elevated estimated pulmonary artery systolic pressure, 44 mmHg Telemetry: Sinus rhythm with atrial ectopy, heart rates in the 60s and 70s
--- NOTE | 2024-02-10 14:27 | Nuclear Medicine Report ---
NM pul perfusion CLINICAL HISTORY: Pulmonary hypertension. Respiratory failure. Evaluate for perfusion defect. COMPARISON STUDY: Chest CT February 06, 2024. Chest radiograph performed earlier today. TECHNIQUE: Nuclear medicine perfusion study was performed following intravenous injection of 4.5 mCi of technetium 99m MAA. Imaging of the chest was performed in multiple projections. No ventilation ken ging was performed given ventilation precautions. FINDINGS: There is mildly heterogeneous perfusion to both lungs. However, no segmental defects are id entified to strongly suggest pulmonary embolus. Exam is compromised from a technical standpoint given lack of ventilation imaging. No areas of abnormal radiotracer uptake are identified. This study is c onsidered low probability for pulmonary embolus. IMPRESSION: Technically compromised exam, as described above. However, study considered low probabili ty for pulmonary embolus. ACT 112: Negative or not required by law. Electronically signed by: Bruce Cai M.D. 02/10/2024 2:26 PM
--- NOTE | 2024-02-10 15:43 | Electrocardiogram Report ---
Test Reason : Blood Pressure : */* mmHG Vent. Rate : 56 BPM Atrial Rate : 56 BPM P-R Int : 172 ms QRS Dur : 114 ms QT Int : 448 ms P-R-T Axes : 19 -22 35 degrees QTcB Int : 432 ms Sinus bradycardia Incomplete left bundle block Moderate voltage criteria for LVH, may be normal variant ( R in aVL , Bakari product ) Borderline ECG When compared with ECG of 18-Nov-2023 20:19, No significant change was found Confirmed by Naty Chaudhry ([id number]) on 02/06/2024 2:29:28 PM Referred By: REFERRED SELF Confirmed By: Naty Chaudhry
[2024-02-10] MEDS: HEPARIN SOD 5,000 UNIT/0.5 ML VIAL SQ SCH (15:45)
[2024-02-11 07:00] LABS: Basophils % (auto) 0.6 %; Eosinophils % (auto) 3.3 %; Hematocrit (blood only) 29.7 % (37.0-47.0); Hemoglobin 9.3 g/dl (12.0-16.0); Lymphocytes % (auto) 6.2 %; Mean Corpuscular Hemoglobin 25.2 pg (25.0-34.0); Mean Corpuscular Hgb Conc 31.3 g/dL (32.0-36.0); Mean Corpuscular Volume 80.5 fL (80.0-100.0); Mean Platelet Volume 9.1 fL (9.4-12.4); Monocytes % (auto) 6.9 %; Neutrophils % (auto) 82.5 %; Platelet Count 201 K/uL (130-400); RDW Coefficient of Variation 15.3 % (11.5-14.5); RDW Standard Deviation 44.2 fL (36.4-46.3); Red Blood Count 3.69 M/uL (4.20-5.40); White Blood Count 12.25 K/ul (4.8-10.8)
[2024-02-11 07:01] LABS: Basophils # (auto) 0.07 K/uL (0.00-0.20); Eosinophils # (auto) 0.41 K/uL (0.00-0.50); Immature Granulocytes # (auto) 0.06 K/uL (0.01-0.20); Immature Granulocytes % (auto) 0.5 %; Lymphocytes # (auto) 0.76 K/uL (1.20-3.40); Monocytes # (auto) 0.85 K/uL (0.11-0.59)
[2024-02-11 07:25] LABS: BUN Creatinine Ratio 29.4 (10-20); Calcium 9.3 mg/dl (8.6-10.3); Creatinine Clr Calc Pharmacy 28.9 ml/min; Est GFR (African American) 25.3 ml/min; Est GFR (Non-African American) 21.8 ml/min; Potassium 4.3 mmol/L (3.5-5.1)
--- NOTE | 2024-02-11 09:06 | Hospitalist Progress Note ---
Date of Service February 11, 2024 Assessment & Plan (1) Acute and chronic respiratory failure: (2) Pneumonia: (3) Pulmonary hypertension: (4) (HFpEF) heart failure with preserved ejection fraction: (5) Acute kidney injury superimposed on chronic kidney disease: (6) Hypothyroidism: (7) CAD (coronary artery disease): (8) Hypertension: Plan This is a 63-year-old female who has a significant past medical history of insulin-dependent T2DM, chronic hypoxic respiratory failure in 2-4L NC O2 at baseline, RADHA on nocturnal oxygen, pulmonary hypertension, morbid obesity, HFpEF, history of CVA, HTN, HLD, CKD and depression with anxiety who presents to ED secondary to progressive SOB since yesterday and was found to have acute on chronic respiratory failure in setting of PNA. Acute on chronic hypoxic respiratory failure Bilateral pleural effusion s/p right sided thoracentesis on 02/08 Possible Bilateral PNA Was hypoxic at 78% per ED report despite oxymask, improved on bipap Afebrile, no leukocytosis, BNP 142, procal within normal range, respiratory viral panel negative CXR with cardiomegaly without evidence of congestive failure, presence of airspace consolidation in the mid to lower lungs bilaterally with small pleural effusions MRSA screen negative CT chest: 1. Cardiomegaly with evidence of congestive failure and pulmonary edema. Radiographic follow-up to resolution is recommended. 2. Right larger than left pleural effusions with dependent consolidation. 3. Mildly enlarged mediastinal lymph nodes are nonspecific and unchanged from previous. 4. Cirrhotic liver morphology and small volume perihepatic ascites. 5. Additional findings as above. Venous duplexnegative for DVT Pulmonary perfusion scan -low probability of PE Cardiology and pulmonary service consulted Given Lasix 60 mg IV twice daily with mild diuresis; increased to QID. Pleural fluid analysis suggestive of transudative pattern; likely secondary to HFpEF. On antibiotics for possible pneumonia ( to complete course on 02/11/2024) Acute on chronic HFpEF 2D echo from Jul 2023 with EF 60-65%, grade 1 diastolic dysfunction, left atrium moderately dilated, mild to moderate MR and elevated RVSP at 40 to 50 mmHg management per above; currently on lasix CKD stage III Cr seems to range from 1.2-1-5 as an outpatient and 1.5-2 per hospital records crea 1.7--> 2.2 Monitor fo now Possible Cardiorenal etiology Hx Lung nodules Subcarinal Lymphadenopathy Follows with pulmonary DM II Last A1c 8.1 on 12/29/23 Hold home agents Basal/bolus insulin per protocol while admitted BSG AC HS CAD with hx of Stent HLD Continue home aspirin, statin, Metoprolol Hypertension Continue Toprol, hydralazine History of CVA MRI brain 08/08 revealed small acute infarcts in bilateral occipital lobe concerning for embolic infarcts Per previous notes, no anticoagulation recommended given significant fall risk and vision issues unless clear arrhythmias confirmed RADHA, untreated, cpap noncompliant Pulmonary hypertension Continue sildenafil TID Possible that RADHA is contributing, but patient reports difficulty tolerating cpap mask Continue BIPAP Q HS inpatient Due to see sleep medicine on 02/09/24 Depression with anxiety Continue Lexapro Morbid Obesity, BMI 49.6 Continue to encourage diet and lifestyle modifications DVT Ppx: SQ heparin Code status: DNR/DNI PCP: Vimal Dispo: pending.Continues to be hospitalized for acute hypoxic respiratory failure, acute on chronic diastolic heart failure. PT/OT eval ordered Time spent evaluating patient, direct bedside care, chart review, placing orders, interpretation of diagnostic studies, discussion with consultants, patient, and family members, as well as other required patient management activities is 50 minutes Please note the above document was generated using voice recognition software. It may contain grammatical, syntax or spelling errors. Any formal questions or concerns about the content, text or information contained within the body of this dictation should be directly addressed to the provider for clarification Admission and Anticipated Discharge Date Admission Date: February 06, 2024 Subjective Patient seen and examined at bedside. She continues to report improvement in shortness of breath Urine output of 2100 cc in last 24 hours No significant overnight events Review of Systems Review of Systems: All systems reviewed & are unremarkable except as noted in Subjective Physical Exam Physical Exam: General- oriented x 3, not in distress, speaks in sentences with no effort or accessory muscle use Eyes- anicteric Neck- no JVD Lungs- Decreased breath sound at bases. Heart- normal rate, regular rhythm; no murmurs Abdomen- normal bowel sounds, nondistended, soft, nontender Extremities-grade 1-2 lower extremity edema- improving, no calf tenderness Neuro- alert, oriented x 3; no gross focal neurologic deficits Skin- warm & dry Results & Data Results & Data Vital Signs (Past 12 Hours) Vital Signs Temp Pulse Resp BP BP Pulse Ox O2 Del Method 02/11/24 07:06 65 20 96 Nasal Cannula 02/11/24 07:03 37 C 64 20 157/80 H 97 Nasal Cannula, High Flow Nasal Cannula 02/11/24 04:13 36.9 C 62 19 163/73 H 96 High Flow Nasal Cannula 02/10/24 23:38 High Flow Nasal Cannula 02/10/24 23:18 37.0 C 63 18 166/77 H 93 High Flow Nasal Cannula O2 Flow Rate 02/11/24 07:06 14 02/11/24 07:03 14 02/11/24 04:13 14 02/10/24 23:38 14 02/10/24 23:18
--- NOTE | 2024-02-11 10:00 | Cardiology Progress Note ---
Date of Service February 11, 2024 Assessment & Plan (1) Acute and chronic respiratory failure: (2) Acute on chronic heart failure with preserved ejection fraction (HFpEF): (3) Pneumonia: Plan Complex, morbidly obese 63-year-old female with untreated obstructive sleep apnea, nocturnal hypoxemia, pulmonary hypertension, pickwickian physiology. Patient admitted with recurrent acute decompensated diastolic heart failure, HFpEF, in setting of stage III chronic kidney disease, underlying ASCVD (status post staged PCI, LAD on December 27, 2019, RCA on January 24, 2020), possible pneumonia. Breathing improving with diuresis, more so following right-sided thoracentesis on February 09, 2024, removal of 1000 mL serosanguineous fluid. Slow gradual improvement in hypervolemia observed. Creatinine continues to slowly increase Recommendations: Continue IV furosemide, 60 mg twice a day, through today, possibly changing to oral torsemide in the next 1-2 days (will probably need 80 to 100 mg of Torsemide per day) Monitor I/O's, daily weight, daily metabolic panels. Metoprolol dosing decreased from 100 mg/day to 50 mg/day Rosuvastatin switched to atorvastatin this admission. Continue amlodipine, hydralazine, and aspirin No JAMIE, ARB, ARNi, or mineralocorticoid receptor antagonists, RE: renal insufficiency, hyperkalemia. PAP therapy encouraged at night and when napping during the day. Admission and Anticipated Discharge Date Admission Date: February 06, 2024 Supervising Physician Co-Signing Physician Notes Attending attestation: Case reviewed with the advanced practitioner. I have personally performed a history and physical examination on the patient. I have reviewed the advanced practitioner's documentation on the date of service referenced in note, and I agree with, and take responsibility for the plan of care. Vic Amado, DO Subjective Patient seen and examined. Chart, medications, telemetry reviewed Feeling better. No chest pain. No palpitations. I/Os: +200, -1001, -721, -2250, -1,220 (-4,992 mL overall) Review of Systems Review of Systems: Complete Review of Systems is as stated above, negative, or noncontributory. Physical Exam Physical Exam: General: A&Ox3. HENT: Normocephalic. Atraumatic. Heart: Regular at 70 bpm. No murmur appreciated. Lungs: Diminished. Decreased. Decreased breath sounds at the right base. No wheeze. Abdomen: +BS. Soft. Nontender. No masses or organomegaly. Extremities: Marked lymphedematous changes, nonpitting distal edema Limited neurological examination is without focal deficits. Pulses: Posterior tibial=0/4. Results & Data Vital Signs (Past 12 Hours) Vital Signs Temp Pulse Resp BP BP Pulse Ox O2 Del Method 02/11/24 07:06 65 20 96 Nasal Cannula 02/11/24 07:03 37 C 64 20 157/80 H 97 Nasal Cannula, High Flow Nasal Cannula 02/11/24 04:13 36.9 C 62 19 163/73 H 96 High Flow Nasal Cannula 02/10/24 23:38 High Flow Nasal Cannula 02/10/24 23:18 37.0 C 63 18 166/77 H 93 High Flow Nasal Cannula O2 Flow Rate 02/11/24 07:06 14 02/11/24 07:03 14 02/11/24 04:13 14 02/10/24 23:38 14 02/10/24 23:18 Laboratory Results CBC 02/11/24 Range/Units 06:05 WBC 12.25 H (4.8-10.8) K/ul RBC 3.69 L (4.20-5.40) M/uL Hgb 9.3 L (12.0-16.0) g/dl Hct 29.7 L (37.0-47.0) % Plt Count 201 (130-400) K/uL Neut # (Auto) 10.10 H (1.40-6.50) K/uL Lymph # (Auto) 0.76 L (1.20-3.40) K/uL [place] # (Auto) 0.85 H (0.11-0.59) K/uL Eos # (Auto) 0.41 (0.00-0.50) K/uL Baso # (Auto) 0.07 (0.00-0.20) K/uL Comprehensive Metabolic Panel 02/11/24 Range/Units 06:05 Sodium 136 (136-145) mmol/L Potassium 4.3 (3.5-5.1) mmol/L Chloride 99 (98-107) mmol/L Carbon Dioxide 31 (21-32) mmol/L BUN 67 H (6-23) mg/dl Creatinine 2.28 H (0.6-1.2) mg/dl Glucose 131 H (70-99(Fasting)) mg/dl Calcium 9.3 (8.6-10.3) mg/dl Intake and Output 02/10/24 02/11/24 02/11/24 22:59 06:59 14:59 Intake Total 480 / 880 400 / 880 Output Total 650 / 2100 1450 / 2100 Balance -170 / -1220 -1050 / -1220 Intake: Oral 480 / 880 400 / 880 Output: Urine Amount (Catheter) 650 / 2100 1450 / 2100 [place]/Indwelling 650 / 2100 1450 / 2100 Other: Weight 114.5 kg Weight Measurement Method Built in [facility] Diagnostic Findings Telemetry: Sinus in the s.
--- NOTE | 2024-02-11 11:41 | Pulmonology Progress Note ---
Date of Service February 11, 2024 Assessment & Plan (1) Acute dyspnea: Plan: As previously noted, appears to be related to volume overload in the setting of heart failure. Likely contributing to her bilateral effusions as well. Patient did improve post RIGHT-sided thoracentesis. The LEFT-sided effusion is small and not amenable to thoracentesis at this time. Fluid appears transudative pointing towards previously documented heart failure issues. Patient should be wearing CPAP overnight. She was encouraged to use this overnight and with any naps. She does not appear with any worsening dyspnea on exam at this time. (2) Acute hypoxemic respiratory failure: Plan: As above. Patient had an acute change in oxygen requirement yesterday. On review of documentation, the patient has not been on anticoagulation since hospitalization. She does have an ASHLY or we would immediately perform a CTA. Ultrasound of the bilateral lower extremities was unremarkable. D-dimer was slightly elevated. VQ scan demonstrates low probability for PE. She will continue with subcutaneous heparin dosing for now to prevent development of thromboembolic process which would be catastrophic to this patient. Thankfully, her oxygen requirement has improved with removal of excess pleural fluid as well as with ongoing diuresis. Again, would continue with spirometry while awake. Would encouraged patient now to be out of bed to chair if possible as she is continuing to improve at this time. (3) Acute on chronic heart failure with preserved ejection fraction (HFpEF): Plan: Continue with management per primary service and cardiology. (4) Pleural effusion, right: Plan: Improved status post thoracentesis. Pleural fluid consistent with transudative process. Plan Thank you for allowing us to participate in the care of this patient. Pulmonary medicine will sign off at this time. Admission and Anticipated Discharge Date Admission Date: February 06, 2024 Subjective Patient seen and evaluated bedside. She reports feeling well and states that her breathing is improved since thoracentesis. She offers no new complaints today. Review of Systems Review of Systems: As per subjective. Physical Exam Physical Exam: VITAL SIGNS Vital signs and nursing notes were reviewed. GENERAL 63-year-old female appearing her stated age who is in mild distress. Communicates well with provider and answers questions appropriately. SKIN Without rashes or lesions. MOUTH/OROPHARYNX Without perioral cyanosis. LUNGS Kyphotic appearing. Diminished breath sounds. CARDIAC RRR with S1/S2. No murmur, rubs, or gallops appreciated. EXTREMITIES Moderate pretibial edema present. +3/5 radial palpated throughout. PSYCH A&Ox3 and cooperates fully with examiner. Pt is very pleasant and interacts well with examiner. Results & Data Results & Data Vital Signs (Past 12 Hours) Vital Signs Temp Pulse Pulse Resp BP BP Pulse Ox 02/11/24 10:49 36.4 C L 65 18 161/66 H 91 02/11/24 08:00 02/11/24 08:00 64 02/11/24 07:06 65 20 96 02/11/24 07:03 37 C 64 20 157/80 H 97 02/11/24 04:13 36.9 C 62 19 163/73 H 96 O2 Del Method O2 Flow Rate 02/11/24 10:49 High Flow Nasal Cannula 12 02/11/24 08:00 High Flow Nasal Cannula 14 02/11/24 08:00 02/11/24 07:06 Nasal Cannula 14 02/11/24 07:03 Nasal Cannula, High Flow Nasal Cannula 14 02/11/24 04:13 High Flow Nasal Cannula 14 PG Care Time/CCT Total # of Minutes Spent Total Time Spent with Patient: Total time spent is greater than 50% in coordination of care (as documented) at patient's floor/unit and/or counseling patient: Coding Level of Care Code 95935 SUB INP/OBS CARE 1/25MIN Diagnoses Acute dyspnea R06.00 Acute hypoxemic respiratory failure J96.01 Acute on chronic heart failure with preserved ejection fraction (HFpEF) I50.33 Pleural effusion, right J90
[2024-02-11] MEDS: FUROSEMIDE 40 MG/4 ML VIAL IV SCH (12:16)
[2024-02-12 06:26] LABS: BUN Creatinine Ratio 29.9 (10-20); Calcium 9.4 mg/dl (8.6-10.3); Creatinine Clr Calc Pharmacy 30.3 ml/min; Est GFR (African American) 27.3 ml/min; Est GFR (Non-African American) 23.5 ml/min
--- NOTE | 2024-02-12 08:44 | Hospitalist Progress Note ---
Date of Service February 12, 2024 Assessment & Plan (1) Acute and chronic respiratory failure: (2) Pneumonia: (3) Pulmonary hypertension: (4) (HFpEF) heart failure with preserved ejection fraction: (5) Acute kidney injury superimposed on chronic kidney disease: (6) Hypothyroidism: (7) CAD (coronary artery disease): (8) Hypertension: Plan This is a 63-year-old female who has a significant past medical history of insulin-dependent T2DM, chronic hypoxic respiratory failure in 2-4L NC O2 at baseline, RADHA on nocturnal oxygen, pulmonary hypertension, morbid obesity, HFpEF, history of CVA, HTN, HLD, CKD and depression with anxiety who presents to ED secondary to progressive SOB since yesterday and was found to have acute on chronic respiratory failure in setting of PNA. Acute on chronic hypoxic respiratory failure Bilateral pleural effusion s/p right sided thoracentesis on 02/08 Possible Bilateral PNA Was hypoxic at 78% per ED report despite oxymask, improved on bipap Afebrile, no leukocytosis, BNP 142, procal within normal range, respiratory viral panel negative CXR with cardiomegaly without evidence of congestive failure, presence of airspace consolidation in the mid to lower lungs bilaterally with small pleural effusions MRSA screen negative CT chest: 1. Cardiomegaly with evidence of congestive failure and pulmonary edema. Radiographic follow-up to resolution is recommended. 2. Right larger than left pleural effusions with dependent consolidation. 3. Mildly enlarged mediastinal lymph nodes are nonspecific and unchanged from previous. 4. Cirrhotic liver morphology and small volume perihepatic ascites. 5. Additional findings as above. Venous duplexnegative for DVT Pulmonary perfusion scan -low probability of PE Cardiology and pulmonary service consulted Given Lasix 60 mg IV twice daily with mild diuresis; increased to QID. Urine sodium is 90 mmol/L on 02/10 which suggest good diuretic response. Continue for now. Pleural fluid analysis suggestive of transudative pattern; likely secondary to HFpEF. On antibiotics for possible pneumonia ( to complete course on 02/11/2024) Acute on chronic HFpEF 2D echo from Jul 2023 with EF 60-65%, grade 1 diastolic dysfunction, left atrium moderately dilated, mild to moderate MR and elevated RVSP at 40 to 50 mmHg management per above; currently on lasix CKD stage III Cr seems to range from 1.2-1-5 as an outpatient and 1.5-2 per hospital records crea 1.7--> 2.1 Monitor fo now Possible Cardiorenal etiology Hx Lung nodules Subcarinal Lymphadenopathy Follows with pulmonary DM II Last A1c 8.1 on 12/29/23 Hold home agents Basal/bolus insulin per protocol while admitted BSG AC HS CAD with hx of Stent HLD Continue home aspirin, statin, Metoprolol Hypertension Continue Toprol, hydralazine History of CVA MRI brain 08/08 revealed small acute infarcts in bilateral occipital lobe concerning for embolic infarcts Per previous notes, no anticoagulation recommended given significant fall risk and vision issues unless clear arrhythmias confirmed RADHA, untreated, cpap noncompliant Pulmonary hypertension Continue sildenafil TID Possible that RADHA is contributing, but patient reports difficulty tolerating cpap mask Continue BIPAP Q HS inpatient Due to see sleep medicine on 02/09/24 Depression with anxiety Continue Lexapro Morbid Obesity, Continue to encourage diet and lifestyle modifications DVT Ppx: SQ heparin Code status: DNR/DNI PCP: Vimal Dispo: pending.Continues to be hospitalized for acute hypoxic respiratory failure requiring high flow nasal cannula, acute on chronic diastolic heart failure. PT/OT eval ordered. plan to wean off oxygen as tolerated. Time spent evaluating patient, direct bedside care, chart review, placing orders, interpretation of diagnostic studies, discussion with consultants, patient, and family members, as well as other required patient management activities is 50 minutes Please note the above document was generated using voice recognition software. It may contain grammatical, syntax or spelling errors. Any formal questions or concerns about the content, text or information contained within the body of this dictation should be directly addressed to the provider for clarification Admission and Anticipated Discharge Date Admission Date: February 06, 2024 Subjective Patient seen and examined at bedside. She reports that her breathing is getting better every day. She continues to r equire high flow nasal cannula. Urine output of 3600 cc in last 24 hours No significant events overnight Review of Systems Review of Systems: All systems reviewed & are unremarkable except as noted in Subjective Physical Exam Physical Exam: General- oriented x 3, not in distress, speaks in sentences with no effort or accessory muscle use Eyes- anicteric Neck- no JVD Lungs- Decreased breath sound at bases. Heart- normal rate, regular rhythm; no murmurs Abdomen- normal bowel sounds, nondistended, soft, nontender Extremities-grade 1-2 lower extremity edema- improving, no calf tenderness Neuro- alert, oriented x 3; no gross focal neurologic deficits Skin- warm & dry Results & Data Results & Data Vital Signs (Past 12 Hours) Vital Signs Temp Pulse Pulse Resp BP Pulse Ox O2 Del Method 02/12/24 07:04 37.0 C 67 18 164/75 H 92 High Flow Nasal Cannula 02/12/24 06:47 65 02/12/24 03:53 36.6 C 68 18 196/75 H 94 High Flow Nasal Cannula 02/11/24 23:32 36.7 C 64 20 148/64 H 95 High Flow Nasal Cannula 02/11/24 22:47 64 02/11/24 21:00 Nasal Cannula O2 Flow Rate 02/12/24 07:04 14 02/12/24 06:47 02/12/24 03:53 13 02/11/24 23:32 13 02/11/24 22:47 02/11/24 21:00 13
--- NOTE | 2024-02-12 10:27 | Cardiology Progress Note ---
Date of Service February 12, 2024 Assessment & Plan (1) Acute and chronic respiratory failure: (2) Acute on chronic heart failure with preserved ejection fraction (HFpEF): (3) Pneumonia: Plan Complex, morbidly obese 63-year-old female with untreated obstructive sleep apnea, nocturnal hypoxemia, pulmonary hypertension, pickwickian physiology. Patient admitted with recurrent acute decompensated diastolic heart failure, HFpEF, in setting of stage III chronic kidney disease, underlying ASCVD (status post staged PCI, LAD on December 27, 2019, RCA on January 24, 2020), possible pneumonia. Breathing improving with diuresis, more so following right-sided thoracentesis on February 09, 2024, removal of 1000 mL serosanguineous fluid. Slow gradual improvement in hypervolemia observed. Creatinine stable Recommendations: Continue IV diuresis as presently prescribed, daily metabolic panels. Admission and Anticipated Discharge Date Admission Date: February 06, 2024 Supervising Physician Co-Signing Physician Notes Attending attestation: Case reviewed with the advanced practitioner. I have personally performed a history and physical examination on the patient. I have reviewed the advanced practitioner's documentation on the date of service referenced in note, and I agree with, and take responsibility for the plan of care. Continue furosemide 60 mg IV QID. Vic Amado, Subjective Patient seen and examined. Chart, medications, telemetry reviewed Feeling OK. Stomach feels better after a bout of diarrhea this AM. No chest pain. No palpitations. I/Os: +200, -1001, -721, -2250, -1,220, -2,560 (-7,552 mL overall) Review of Systems Review of Systems: Complete Review of Systems is as stated above, negative, or noncontributory. Physical Exam Physical Exam: General: A&Ox3. HENT: Normocephalic. Atraumatic. Heart: Regular at 70 bpm. No murmur appreciated. Lungs: Diminished. Decreased. Decreased breath sounds at the right base. No wheeze. Abdomen: +BS. Soft. Nontender. No masses or organomegaly. Extremities: Marked lymphedematous changes, 2+ edema Limited neurological examination is without focal deficits. Pulses: Posterior tibial=0/4. Results & Data Vital Signs (Past 12 Hours) Vital Signs Temp Pulse Pulse Resp BP Pulse Ox O2 Del Method 02/12/24 07:04 37.0 C 67 18 164/75 H 92 High Flow Nasal Cannula 02/12/24 06:47 65 02/12/24 03:53 36.6 C 68 18 196/75 H 94 High Flow Nasal Cannula 02/11/24 23:32 36.7 C 64 20 148/64 H 95 High Flow Nasal Cannula 02/11/24 22:47 64 O2 Flow Rate 02/12/24 07:04 14 02/12/24 06:47 02/12/24 03:53 13 02/11/24 23:32 13 02/11/24 22:47 Laboratory Results Comprehensive Metabolic Panel 02/12/24 Range/Units 05:40 Sodium 136 (136-145) mmol/L Potassium 4.0 (3.5-5.1) mmol/L Chloride 98 (98-107) mmol/L Carbon Dioxide 32 (21-32) mmol/L BUN 64 H (6-23) mg/dl Creatinine 2.14 H (0.6-1.2) mg/dl Glucose 106 H (70-99(Fasting)) mg/dl Calcium 9.4 (8.6-10.3) mg/dl Intake and Output 02/11/24 02/12/24 02/12/24 22:59 06:59 14:59 Intake Total 275 / 1115 Output Total 2775 / 3675 Balance -2500 / -2560 Intake: Oral 275 / 1115 Output: Urine 100 / 100 Urine Amount (Catheter) 7475 / 3575 [place]/Indwelling 5585 / 3578 Other: Weight 111.5 kg Weight Measurement Method Built in [facility] Diagnostic Findings Telemetry: Sinus with ectopy, heart rates in the 60's and 70's.
[2024-02-12] MEDS: LOPERAMIDE HCL 2 MG CAP PO STA (23:19)
[2024-02-13 00:25] LABS: Cdiff Toxin B Gene (2yr or >) Positive Cdiff Gene (Neg)
[2024-02-13 01:09] LABS: Cdiff Antigen Positive; Cdiff Toxin A+B Positive Cdiff Toxin (Negative)
[2024-02-13] MEDS: CHERRY SYRUP 5 ML UDP PO ONE (03:03)
[2024-02-13] MEDS: VANCOMYCIN HCL 125 MG/2.5ML SOLN PO ONE (03:04)
[2024-02-13 07:18] LABS: BUN Creatinine Ratio 33.2 (10-20); Calcium 9.5 mg/dl (8.6-10.3); Creatinine Clr Calc Pharmacy 33.8 ml/min; Est GFR (African American) 31.5 ml/min; Est GFR (Non-African American) 27.2 ml/min
--- NOTE | 2024-02-13 08:34 | Cardiology Progress Note ---
Date of Service February 13, 2024 Assessment & Plan (1) Acute and chronic respiratory failure: (2) Acute on chronic heart failure with preserved ejection fraction (HFpEF): (3) Pneumonia: Plan Complex, morbidly obese 63-year-old female with untreated obstructive sleep apnea, nocturnal hypoxemia, pulmonary hypertension, Pickwickian physiology. Patient admitted with recurrent acute decompensated diastolic heart failure, HFpEF, in setting of stage III chronic kidney disease, underlying ASCVD (status post staged PCI, LAD on December 27, 2019, RCA on January 24, 2020), possible pneumonia. Breathing improving with diuresis, more so following right-sided thoracentesis on February 09, 2024, removal of 1000 mL serosanguineous (transudative) fluid. Slow gradual improvement in hypervolemia observed. Creatinine stable Recommendations: * Creatinine slightly improved 1.9 on 02/13/2024, continue furosemide 60 mg IV 4 times daily * Patient now on vancomycin 125 mg p.o. every 6 hours along with zapien syrup for C. difficile. Supportive measures employed. * Continue subcutaneous heparin for DVT prophylaxis. Admission and Anticipated Discharge Date Admission Date: February 06, 2024 Subjective Patient seen in cardiology follow-up. She states that she had a restless night. She has been diagnosed with C. difficile, and notes diarrhea. She looks tired and washed out today compared to yesterday. Telemetry reveals sinus rhythm with IVCD in the 60s. Continues to have vigorous urine output, of 3.6 L and 2.6 L in the last 2 days. Physical Exam Physical Exam: General: A&Ox3. HENT: Normocephalic. Atraumatic. Heart: Regular at 70 bpm. No murmur appreciated. Lungs: Diminished. Decreased. Decreased breath sounds at the right base. No wheeze. Abdomen: +BS. Soft. Nontender. No masses or organomegaly. Extremities: Marked lymphedematous changes, 2+ edema Limited neurological examination is without focal deficits. Results & Data Vital Signs (Past 12 Hours) Vital Signs Temp Pulse Pulse Resp BP Pulse Ox O2 Del Method 02/13/24 06:58 37.0 C 67 18 143/64 H 94 Nasal Cannula 02/13/24 03:28 65 17 140/55 L 93 Nasal Cannula 02/12/24 23:27 63 02/12/24 22:54 36.9 C 63 20 116/71 92 Nasal Cannula 02/12/24 20:36 Nasal Cannula O2 Flow Rate 02/13/24 06:58 8 02/13/24 03:28 8 02/12/24 23:27 02/12/24 22:54 8 02/12/24 20:36 8 Laboratory Results Comprehensive Metabolic Panel 02/13/24 Range/Units 06:27 Sodium 137 (136-145) mmol/L Potassium 4.0 (3.5-5.1) mmol/L Chloride 97 L (98-107) mmol/L Carbon Dioxide 32 (21-32) mmol/L BUN 63 H (6-23) mg/dl Creatinine 1.90 H (0.6-1.2) mg/dl Glucose 143 H (70-99(Fasting)) mg/dl Calcium 9.5 (8.6-10.3) mg/dl Intake and Output 02/12/24 02/13/24 02/13/24 22:59 06:59 14:59 Intake Total 125 / 1145 150 / 1145 Output Total 1000 / 265 1000 / 265 Balance -875 / -1506 -850 / -1506 Intake: Oral 125 / 1145 150 / 1145 Output: Urine Amount (Catheter) 1000 / 2650 1000 / 2650 [place]/Indwelling 1000 / 2650 1000 / 2650 Other: Weight 109.8 kg Weight Measurement Method Built in [facility]
--- NOTE | 2024-02-13 09:15 | Hospitalist Progress Note ---
Date of Service February 13, 2024 Assessment & Plan (1) Acute and chronic respiratory failure: (2) Pneumonia: (3) Pulmonary hypertension: (4) (HFpEF) heart failure with preserved ejection fraction: (5) Acute kidney injury superimposed on chronic kidney disease: (6) Hypothyroidism: (7) CAD (coronary artery disease): (8) Hypertension: Plan This is a 63-year-old female who has a significant past medical history of insulin-dependent T2DM, chronic hypoxic respiratory failure in 2-4L NC O2 at baseline, RADHA on nocturnal oxygen, pulmonary hypertension, morbid obesity, HFpEF, history of CVA, HTN, HLD, CKD and depression with anxiety who presents to ED secondary to progressive SOB since yesterday and was found to have acute on chronic respiratory failure in setting of PNA. Acute on chronic hypoxic respiratory failure Bilateral pleural effusion s/p right sided thoracentesis on 02/08 Possible Bilateral PNA Was hypoxic at 78% per ED report despite oxymask, improved on bipap Afebrile, no leukocytosis, BNP 142, procal within normal range, respiratory viral panel negative CXR with cardiomegaly without evidence of congestive failure, presence of airspace consolidation in the mid to lower lungs bilaterally with small pleural effusions MRSA screen negative CT chest on admission suggestive of siginifcant pulmonary edema. Venous duplexnegative for DVT Pulmonary perfusion scan -low probability of PE Cardiology and pulmonary service consulted Given Lasix 60 mg IV twice daily with mild diuresis; increased to QID. Urine sodium is 90 mmol/L on 02/10 which suggest good diuretic response. Continue for now. Pleural fluid analysis suggestive of transudative pattern; likely secondary to HFpEF. Completed antibiotics for possible pneumonia ( to complete course on 02/11/2024) C. difficile infection Patient reported loose stool; C. difficile positive on 02/11 Started on oral vancomycin; plan to treat for 10 days Acute on chronic HFpEF 2D echo from Jul 2023 with EF 60-65%, grade 1 diastolic dysfunction, left atrium moderately dilated, mild to moderate MR and elevated RVSP at 40 to 50 mmHg management per above; currently on lasix CKD stage III Cr seems to range from 1.2-1-5 as an outpatient and 1.5-2 per hospital records crea 1.7--> 2.1 Monitor fo now Possible Cardiorenal etiology Hx Lung nodules Subcarinal Lymphadenopathy Follows with pulmonary DM II Last A1c 8.1 on 12/29/23 Hold home agents Basal/bolus insulin per protocol while admitted BSG AC HS CAD with hx of Stent HLD Continue home aspirin, statin, Metoprolol Hypertension Continue Toprol, hydralazine History of CVA MRI brain 08/08 revealed small acute infarcts in bilateral occipital lobe concerning for embolic infarcts Per previous notes, no anticoagulation recommended given significant fall risk and vision issues unless clear arrhythmias confirmed RADHA, untreated, cpap noncompliant Pulmonary hypertension Continue sildenafil TID Possible that RADHA is contributing, but patient reports difficulty tolerating cpap mask Continue BIPAP Q HS inpatient Due to see sleep medicine on 02/09/24 Depression with anxiety Continue Lexapro Morbid Obesity, Continue to encourage diet and lifestyle modifications DVT Ppx: SQ heparin Code status: DNR/DNI PCP: Vimal Dispo: pending.Continues to be hospitalized for acute hypoxic respiratory failure requiring high flow nasal cannula, acute on chronic diastolic heart failure. PT/OT eval ordered. plan to wean off oxygen as tolerated. Time spent evaluating patient, direct bedside care, chart review, placing orders, interpretation of diagnostic studies, discussion with consultants, patient, and family members, as well as other required patient management activities is 50 minutes Please note the above document was generated using voice recognition software. It may contain grammatical, syntax or spelling errors. Any formal questions or concerns about the content, text or information contained within the body of this dictation should be directly addressed to the provider for clarification Admission and Anticipated Discharge Date Admission Date: February 06, 2024 Subjective Patient seen and examined at bedside. Patient reports diarrhea and was not able to sleep overnight She continues to have good urinary output. Oxygen requirement gradually improving Review of Systems Review of Systems: All systems reviewed & are unremarkable except as noted in Subjective Physical Exam Physical Exam: General- oriented x 3, not in distress, speaks in sentences with no effort or accessory muscle use Eyes- anicteric Neck- no JVD Lungs- Decreased breath sound at bases. Heart- normal rate, regular rhythm; no murmurs Abdomen- normal bowel sounds, nondistended, soft, nontender Extremities-grade 1-2 lower extremity edema- improving, no calf tenderness Neuro- alert, oriented x 3; no gross focal neurologic deficits Skin- warm & dry Results & Data Results & Data Vital Signs (Past 12 Hours) Vital Signs Temp Pulse Pulse Resp BP Pulse Ox O2 Del Method 02/13/24 06:58 37.0 C 67 18 143/64 H 94 Nasal Cannula 02/13/24 03:28 65 17 140/55 L 93 Nasal Cannula 02/12/24 23:27 63 02/12/24 22:54 36.9 C 63 20 116/71 92 Nasal Cannula O2 Flow Rate 02/13/24 06:58 8 02/13/24 03:28 8 02/12/24 23:27 02/12/24 22:54 8
[2024-02-13] MEDS: VANCOMYCIN HCL 125 MG/2.5ML SOLN PO SCH (11:56)
[2024-02-13] MEDS: CHERRY SYRUP 5 ML UDP PO SCH (11:56)
[2024-02-14 07:21] LABS: BUN Creatinine Ratio 32.8 (10-20); Calcium 9.7 mg/dl (8.6-10.3); Creatinine Clr Calc Pharmacy 35.8 ml/min; Est GFR (African American) 33.6 ml/min; Potassium 3.5 mmol/L (3.5-5.1)
--- NOTE | 2024-02-14 07:51 | Hospitalist Progress Note ---
Date of Service February 14, 2024 Assessment & Plan (1) Acute and chronic respiratory failure: (2) Pneumonia: (3) Pulmonary hypertension: (4) (HFpEF) heart failure with preserved ejection fraction: (5) Acute kidney injury superimposed on chronic kidney disease: (6) Hypothyroidism: (7) CAD (coronary artery disease): (8) Hypertension: Plan This is a 63-year-old female who has a significant past medical history of insulin-dependent T2DM, chronic hypoxic respiratory failure in 2-4L NC O2 at baseline, RADHA on nocturnal oxygen, pulmonary hypertension, morbid obesity, HFpEF, history of CVA, HTN, HLD, CKD and depression with anxiety who presents to ED secondary to progressive SOB since yesterday and was found to have acute on chronic respiratory failure in setting of PNA. Acute on chronic hypoxic respiratory failure Bilateral pleural effusion s/p right sided thoracentesis on 02/08 Possible Bilateral PNA Was hypoxic at 78% per ED report despite oxymask, improved on bipap Afebrile, no leukocytosis, BNP 142, procal within normal range, respiratory viral panel negative CXR with cardiomegaly without evidence of congestive failure, presence of airspace consolidation in the mid to lower lungs bilaterally with small pleural effusions MRSA screen negative CT chest on admission suggestive of siginifcant pulmonary edema. Venous duplexnegative for DVT Pulmonary perfusion scan -low probability of PE Cardiology and pulmonary service consulted Given Lasix 60 mg IV twice daily with mild diuresis; increased to QID. Urine sodium is 90 mmol/L on 02/10 which suggest good diuretic response. Continue for now. Pleural fluid analysis suggestive of transudative pattern; likely secondary to HFpEF. Completed antibiotics for possible pneumonia ( to complete course on 02/11/2024) C. difficile infection Patient reported loose stool; C. difficile positive on 02/11 Started on oral vancomycin; plan to treat for 10 days Acute on chronic HFpEF 2D echo from Jul 2023 with EF 60-65%, grade 1 diastolic dysfunction, left atrium moderately dilated, mild to moderate MR and elevated RVSP at 40 to 50 mmHg management per above; currently on lasix CKD stage III Cr seems to range from 1.2-1-5 as an outpatient and 1.5-2 per hospital records Creatinine within range Hx Lung nodules Subcarinal Lymphadenopathy Follows with pulmonary DM II Last A1c 8.1 on 12/29/23 Hold home agents Basal/bolus insulin per protocol while admitted BSG AC HS CAD with hx of Stent HLD Continue home aspirin, statin, Metoprolol Hypertension Continue Toprol, hydralazine History of CVA MRI brain 08/08 revealed small acute infarcts in bilateral occipital lobe concerning for embolic infarcts Per previous notes, no anticoagulation recommended given significant fall risk and vision issues unless clear arrhythmias confirmed RADHA, untreated, cpap noncompliant Pulmonary hypertension Continue sildenafil TID Possible that RADHA is contributing, but patient reports difficulty tolerating cpap mask Continue BIPAP Q HS inpatient Due to see sleep medicine on 02/09/24 Depression with anxiety Continue Lexapro Morbid Obesity, Continue to encourage diet and lifestyle modifications DVT Ppx: SQ heparin Code status: DNR/DNI PCP: Vimal Dispo: pending.Continues to be hospitalized for acute hypoxic respiratory failure requiring high flow nasal cannula, acute on chronic diastolic heart failure. PT/OT eval ordered. plan to wean off oxygen as tolerated. Time spent evaluating patient, direct bedside care, chart review, placing orders, interpretation of diagnostic studies, discussion with consultants, patient, and family members, as well as other required patient management activities is 50 minutes Please note the above document was generated using voice recognition software. It may contain grammatical, syntax or spelling errors. Any formal questions or concerns about the content, text or information contained within the body of this dictation should be directly addressed to the provider for clarification Admission and Anticipated Discharge Date Admission Date: February 06, 2024 Subjective Patient continues to have multiple episode of diarrhea overnight. Urine output of 1150 mL in last 24 hours. Oxygen requirement is still around 8 L by nasal cannula Review of Systems Review of Systems: All systems reviewed & are unremarkable except as noted in Subjective Physical Exam Physical Exam: General- oriented x 3, not in distress, speaks in sentences with no effort or accessory muscle use Eyes- anicteric Neck- no JVD Lungs- Decreased breath sound at bases. Heart- normal rate, regular rhythm; no murmurs Abdomen- normal bowel sounds, nondistended, soft, nontender Extremities-grade 1-2 lower extremity edema- improving, no calf tenderness Neuro- alert, oriented x 3; no gross focal neurologic deficits Skin- warm & dry Results & Data Results & Data Vital Signs (Past 12 Hours) Vital Signs Temp Pulse Pulse Resp BP Pulse Ox O2 Del Method 02/14/24 06:51 36.9 C 67 18 154/72 H 92 Nasal Cannula 02/13/24 23:17 61 02/13/24 23:01 37.0 C 60 18 146/55 H 93 Nasal Cannula 02/13/24 21:38 Nasal Cannula 02/13/24 20:15 37.1 C 62 18 147/81 H 93 Nasal Cannula O2 Flow Rate 02/14/24 06:51 8 02/13/24 23:17 02/13/24 23:01 8 02/13/24 21:38 8 02/13/24 20:15 7
--- NOTE | 2024-02-14 11:09 | Cardiology Progress Note ---
Date of Service February 14, 2024 Assessment & Plan (1) Acute and chronic respiratory failure: (2) Acute on chronic heart failure with preserved ejection fraction (HFpEF): (3) Pneumonia: Plan Complex, morbidly obese 63-year-old female with untreated obstructive sleep apnea, nocturnal hypoxemia, pulmonary hypertension, Pickwickian physiology. Patient admitted with recurrent acute decompensated diastolic heart failure, HFpEF, in setting of stage III chronic kidney disease, underlying ASCVD (status post staged PCI, LAD on December 27, 2019, RCA on January 24, 2020), possible pneumonia. Breathing improving with diuresis, more so following right-sided thoracentesis on February 09, 2024, removal of 1000 mL serosanguineous (transudative) fluid. Slow gradual improvement in hypervolemia observed. Creatinine stable Recommendations: * Creatinine stable, continue furosemide 60 mg IV 4 times daily * Patient now on vancomycin 125 mg p.o. every 6 hours along with zapien syrup for C. difficile. Supportive measures employed. * Continue subcutaneous heparin for DVT prophylaxis. Admission and Anticipated Discharge Date Admission Date: February 06, 2024 Subjective Patient seen in cardiology follow-up. She is in better spirits today. Respiratory status is stable. Still however has a high oxygen requirement. Physical Exam Physical Exam: General: A&Ox3. HENT: Normocephalic. Atraumatic. Heart: Regular at 70 bpm. No murmur appreciated. Lungs: Diminished. Decreased. Decreased breath sounds at the right base. No wheeze. Abdomen: +BS. Soft. Nontender. No masses or organomegaly. Extremities: Marked lymphedematous changes, 2+ edema Limited neurological examination is without focal deficits. Results & Data Vital Signs (Past 12 Hours) Vital Signs Temp Pulse Pulse Resp BP Pulse Ox O2 Del Method 02/14/24 10:17 Nasal Cannula 02/14/24 06:51 36.9 C 67 18 154/72 H 92 Nasal Cannula 02/13/24 23:17 61 O2 Flow Rate 02/14/24 10:17 8 02/14/24 06:51 8 02/13/24 23:17
[2024-02-14] MEDS: POTASSIUM CHLORIDE CRTAB 20 MEQ TABCR PO STA (11:26)
[2024-02-15 07:44] LABS: BUN Creatinine Ratio 31.9 (10-20); Calcium 9.6 mg/dl (8.6-10.3); Creatinine Clr Calc Pharmacy 33.9 ml/min; Est GFR (African American) 31.9 ml/min; Est GFR (Non-African American) 27.5 ml/min; Potassium 3.9 mmol/L (3.5-5.1)
--- NOTE | 2024-02-15 08:58 | Hospitalist Progress Note ---
Date of Service February 15, 2024 Assessment & Plan (1) Acute and chronic respiratory failure: (2) Pneumonia: (3) Pulmonary hypertension: (4) (HFpEF) heart failure with preserved ejection fraction: (5) Acute kidney injury superimposed on chronic kidney disease: (6) Hypothyroidism: (7) CAD (coronary artery disease): (8) Hypertension: Plan This is a 63-year-old female who has a significant past medical history of insulin-dependent T2DM, chronic hypoxic respiratory failure in 2-4L [place] O2 at baseline, RADHA on nocturnal oxygen, pulmonary hypertension, morbid obesity, HFpEF, history of CVA, HTN, HLD, CKD and depression with anxiety who presents to ED secondary to progressive SOB since yesterday and was found to have acute on chronic respiratory failure in setting of PNA. Acute on chronic hypoxic respiratory failure Bilateral pleural effusion s/p right sided thoracentesis on 02/08 Possible Bilateral PNA Patient presented with shortness of breath; spo2 was 78% in RA. Afebrile, no leukocytosis, BNP 142, procal within normal range, respiratory viral panel negative CXR with cardiomegaly without evidence of congestive failure, presence of airspace consolidation in the mid to lower lungs bilaterally with small pleural effusions MRSA screen negative CT chest on admission suggestive of siginifcant pulmonary edema. Venous duplexnegative for DVT Pulmonary perfusion scan -low probability of PE Cardiology and pulmonary service consulted Patient was on 60 mg IV Lasix 4 times a day; urine output has decreased; repeat CXR shows increasing pulmonary edema. Lasix increased to 80mg iv lasix 4 times a day; will also give 1 dose of metolazone to augment diuresis Pleural fluid analysis suggestive of transudative pattern; likely secondary to HFpEF. Completed antibiotics for possible pneumonia ( completed course on 02/11/2024) C. difficile infection Patient reported loose stool; C. difficile positive on 02/11 Started on oral vancomycin; plan to treat for 10 days Acute on chronic HFpEF 2D echo from Jul 2023 with EF 60-65%, grade 1 diastolic dysfunction, left atrium moderately dilated, mild to moderate MR and elevated RVSP at 40 to 50 mmHg management per above; currently on lasix CKD stage III Cr seems to range from 1.2-1-5 as an outpatient and 1.5-2 per hospital records Creatinine within baseline range Hx Lung nodules Subcarinal Lymphadenopathy Follows with pulmonary DM II Last A1c 8.1 on 12/29/23 Hold home agents Basal/bolus insulin per protocol while admitted BSG AC HS CAD with hx of Stent HLD Continue home aspirin, statin, Metoprolol Hypertension Continue Toprol, hydralazine History of CVA MRI brain 08/08 revealed small acute infarcts in bilateral occipital lobe concerning for embolic infarcts Per previous notes, no anticoagulation recommended given significant fall risk and vision issues unless clear arrhythmias confirmed RADHA, untreated, cpap noncompliant Pulmonary hypertension Continue sildenafil TID Possible that RADHA is contributing, but patient reports difficulty tolerating cpap mask Continue BIPAP Q HS inpatient Due to see sleep medicine on 02/09/24 Depression with anxiety Continue Lexapro Morbid Obesity, Continue to encourage diet and lifestyle modifications DVT Ppx: SQ heparin Code status: DNR/DNI PCP: Vimal Dispo: pending.Continues to be hospitalized for acute hypoxic respiratory failure requiring high flow nasal cannula, acute on chronic diastolic heart failure. PT/OT eval ordered. plan to wean off oxygen as tolerated. I updated patient's daughter over the phone. She acknowledged that patient is having a difficult year with multiple hospitalization. We discussed that patient does not want aggressive interventions; patient refused BiPAP today. Plan is to see how patient does in next few days. If her respiratory status continues to decompensate; comfort measures to be initiated. Answered her questions/queries. Time spent evaluating patient, direct bedside care, chart review, placing orders, interpretation of diagnostic studies, discussion with consultants, patient, and family members, as well as other required patient management a ctivities is 50 minutes Please note the above document was generated using voice recognition software. It may contain grammatical, syntax or spelling errors. Any formal questions or concerns about the content, text or information contained within the body of this dictation should be directly addressed to the provider for clarification Admission and Anticipated Discharge Date Admission Date: February 06, 2024 Subjective Patient seen and examined at bedside. Patient reports feeling more short of breath today. Oxygen requirement has increased Chest x-ray shows increasing pulmonary edema Patient is requiring high flow nasal cannula; does not want BiPAP Review of Systems Review of Systems: All systems reviewed & are unremarkable except as noted in Subjective Physical Exam Physical Exam: General- oriented x 3, not in distress, speaks in sentences with no effort or accessory muscle use Eyes- anicteric Neck- no JVD Lungs- Decreased breath sound at bases. crackles +nt Heart- normal rate, regular rhythm; no murmurs Abdomen- normal bowel sounds, nondistended, soft, nontender Extremities-grade 1-2 lower extremity edema- improving, no calf tenderness Neuro- alert, oriented x 3; no gross focal neurologic deficits Skin- warm & dry Results & Data Results & Data Vital Signs (Past 12 Hours) Vital Signs Temp Pulse Pulse Resp BP Pulse Ox O2 Del Method 02/15/24 07:23 36.7 C 69 18 150/74 H 90 Nasal Cannula 02/15/24 07:14 68 22 87 L Nasal Cannula 02/15/24 07:00 65 02/15/24 03:01 36.5 C 63 21 139/73 90 High Flow Nasal Cannula 02/14/24 20:58 Nasal Cannula O2 Flow Rate 02/15/24 07:23 13 02/15/24 07:14 12 02/15/24 07:00 02/15/24 03:01 10 02/14/24 20:58 10
--- NOTE | 2024-02-15 11:12 | Cardiology Progress Note ---
Date of Service February 15, 2024 Assessment & Plan (1) Acute and chronic respiratory failure: (2) Acute on chronic heart failure with preserved ejection fraction (HFpEF): (3) Pneumonia: Plan Complex, morbidly obese 63-year-old female with untreated obstructive sleep apnea, nocturnal hypoxemia, pulmonary hypertension, [place]wickian physiology. Patient admitted with recurrent acute decompensated diastolic heart failure, HFpEF, in setting of stage III chronic kidney disease, underlying ASCVD (status post staged PCI, LAD on December 27, 2019, RCA on January 24, 2020), possible pneumonia. Breathing improving with diuresis, more so following right-sided thoracentesis on February 09, 2024, removal of 1000 mL serosanguineous (transudative) fluid. Slow gradual improvement in hypervolemia observed. Creatinine stable Recommendations: * Creatinine stable, continue furosemide 60 mg IV 4 times daily * Patient now on vancomycin 125 mg p.o. every 6 hours along with zapien syrup for C. difficile. Supportive measures employed. * Continue subcutaneous heparin for DVT prophylaxis. Admission and Anticipated Discharge Date Admission Date: February 06, 2024 Subjective Patient seen in cardiology follow-up. She states her stomach feels little bit better today. She remains on high flow oxygen. Physical Exam Physical Exam: General: A&Ox3. HENT: Normocephalic. Atraumatic. Heart: Regular at 70 bpm. No murmur appreciated. Lungs: Diminished. Decreased. Decreased breath sounds at the right base. No wheeze. Abdomen: +BS. Soft. Nontender. No masses or organomegaly. Extremities: Marked lymphedematous changes, 2+ edema Limited neurological examination is without focal deficits. Results & Data Vital Signs (Past 12 Hours) Vital Signs Temp Pulse Pulse Resp BP Pulse Ox O2 Del Method 02/15/24 08:00 Nasal Cannula 02/15/24 07:23 36.7 C 69 18 150/74 H 90 Nasal Cannula 02/15/24 07:14 68 22 87 L Nasal Cannula 02/15/24 07:00 65 02/15/24 03:01 36.5 C 63 21 139/73 90 High Flow Nasal Cannula O2 Flow Rate 02/15/24 08:00 13 02/15/24 07:23 13 02/15/24 07:14 12 02/15/24 07:00 02/15/24 03:01 10 Laboratory Results Comprehensive Metabolic Panel 02/15/24 Range/Units 06:39 Sodium 136 (136-145) mmol/L Potassium 3.9 (3.5-5.1) mmol/L Chloride 96 L (98-107) mmol/L Carbon Dioxide 34 H (21-32) mmol/L BUN 60 H (6-23) mg/dl Creatinine 1.88 H (0.6-1.2) mg/dl Glucose 139 H (70-99(Fasting)) mg/dl Calcium 9.6 (8.6-10.3) mg/dl Intake and Output 02/14/24 02/15/24 02/15/24 22:59 06:59 14:59 Intake Total 200 / 900 120 / 900 Output Total 450 / 1552 450 / 1552 Balance -250 / -652 -330 / -652 Intake: Oral 200 / 900 120 / 900 Output: Urine Amount (Catheter) 450 / 1550 450 / 1550 [place]/Indwelling 450 / 1550 450 / 1550 Other: Weight 108.1 kg Weight Measurement Method Built in [facility]
--- NOTE | 2024-02-15 11:20 | XRay Report ---
XR chest 1V portable HISTORY: Follow up on pulmonary edema COMPARISON: Chest 02/02/2024. FINDINGS: No pneumothorax. The heart remains enlarged. There are low lung volumes again noted. Small bilateral pleural effusions and patchy bibasilar densities persist. Perihilar hazy airspace opacities with interstitial vascular thickening and progressed. This is consistent with moderate pulmonary [place] ma. IMPRESSION: 1. Interval progression of the moderate pulmonary edema. 2. Cardiomegaly, small bilateral pleural effusions, and bibasilar densities persist ACT 112: Negative or not required by law. Electronically signed by: Giuliano Loera M.D. 02/15/2024 11:19 AM
[2024-02-15] MEDS: FUROSEMIDE 40 MG/4 ML VIAL IV SCH (13:19)
[2024-02-15] MEDS: metOLazone 2.5 MG TABLET PO ONE (13:19)
[2024-02-15] MEDS: POTASSIUM CHLORIDE CRTAB 20 MEQ TABCR PO SCH (13:21)
[2024-02-15] MEDS: NYSTATIN POWDER 15GM BTL EXT SCH (23:57)
[2024-02-16 07:32] LABS: Basophils # (auto) 0.09 K/uL (0.00-0.20); Basophils % (auto) 0.8 %; Eosinophils # (auto) 0.23 K/uL (0.00-0.50); Hematocrit (blood only) 28.7 % (37.0-47.0); Immature Granulocytes # (auto) 0.12 K/uL (0.01-0.20); Lymphocytes # (auto) 0.94 K/uL (1.20-3.40); Lymphocytes % (auto) 8.1 %; Mean Corpuscular Hemoglobin 25.5 pg (25.0-34.0); Mean Corpuscular Hgb Conc 31.4 g/dL (32.0-36.0); Mean Corpuscular Volume 81.3 fL (80.0-100.0); Mean Platelet Volume 10.3 fL (9.4-12.4); Monocytes # (auto) 0.89 K/uL (0.11-0.59); Monocytes % (auto) 7.7 %; Neutrophils # (auto) 9.29 K/uL (1.40-6.50); Neutrophils % (auto) 80.4 %; Platelet Count 223 K/uL (130-400); RDW Coefficient of Variation 14.7 % (11.5-14.5); RDW Standard Deviation 43.6 fL (36.4-46.3); Red Blood Count 3.53 M/uL (4.20-5.40); White Blood Count 11.56 K/ul (4.8-10.8)
[2024-02-16 07:48] LABS: BUN Creatinine Ratio 35.2 (10-20); Calcium 9.4 mg/dl (8.6-10.3); Est GFR (African American) 30.9 ml/min; Est GFR (Non-African American) 26.7 ml/min; Potassium 4.5 mmol/L (3.5-5.1)
--- NOTE | 2024-02-16 09:40 | Palliative Care Consultation ---
Date of Consultation February 16, 2024 Assessment & Plan (1) Dyspnea and respiratory abnormalities: (2) Weakness generalized: (3) Advanced care planning/counseling discussion: 30min face to face ACP with pt at bedside Her opening glynn to me was "I know I'm dying, this is not going to be long for me." We explored this a bit further and she tells me she knows she has been declining steadily for some time. "everything is harder now, there's really no easy part of my days anymore. 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 She does not want to burden them. She says her son tried to look into hospice and perceives he was told pt makes too much money for hospice. We discussed hospice benefit: I provided education about the hospice benefit: an interdisciplinary program offered by nurses, nurses aides, social workers, chaplains and a medical assistant secretary for patients with a terminal condition and a life expectancy of less than 6 months. This is covered by Medicare at 100%/no out of pocket expense to patient and all meds/supplies needed by patient for the reason they are on hospice are paid for/covered by hospice. The goal is assure quality of life of the patient in their home setting (home, fpc, inpatient hospice setting) by providing symptoms management, psychosocial and spiritual support. However, they cannot offer 24 hours care and if the family is unable to provide that care, they will have to consider personal care with out of pocket cost vs. fpc placement. We discussed the goals of hospice as a patient service and the goals of care; we discussed EOL trajectories and transitions karina the emotional impact of realizing mortality as a concrete reality from prior abstract considerations. Pt was reassured that no matter where they are along this trajectory, they are not alone - their medical team will remain by their side through their journey. Discussed the pros/cons of accepting help when especially weakened and distressed by pain-which would also help provide relief/decrease caregiver burden/strain. She is interested in hospice but wants her son to be in agreement he will not be visiting until tomorrow but asked me to call him for discussion While she was not inclined to comfort care today she is clear that she knows her time is limited and she needs to decide where she wants to spend it ie home vs SNF vs rehab trial etc. (4) Palliative care by specialist: Discussed Palliative Medicine provides specialized medical care for patients with a serious illness. We offer a focus on quality of life through reduction of symptom burden/more control over their illness, for patients and their family. Palliative Medicine interventions can be given along with curative treatment. I specifically clarified we are not hospice, which is a visiting nurse service that focuses on care delivered at the very end of life. (5) Anxiety and depression: Plan As above Call pending to son Thank you for allowing us to participate in the ongoing care of this patient. Please page with any additional concerns. Promise Huerta DNP Director, Palliative Medicine History of Present Illness Reason for Consultation: On 02/16/24 @ 07:49 Cody Casas Wrote To Carline Huerta goals of care disussion, recurrent CHF Attending Physician: Cody Casas MD History of Present Illness Maricel Flores is a 63yo female with complex, morbidly obese 63-year-old female with untreated obstructive sleep apnea, nocturnal hypoxemia, pulmonary hypertension, Pickwickian physiology. Came to ED 02/06/24 with c/o progressive SOB since 02/05/24 & found to have acute on chronic respiratory failure in setting of PNA/hypoxic at 78% per ED report despite oxymask, improved on bipap. Patient admitted with recurrent acute decompensated diastolic heart failure, HFpEF, in setting of stage III chronic kidney disease, underlying ASCVD (status post staged PCI, LAD on December 27, 2019, RCA on January 24, 2020), possible pneumonia. Some improvement with diuresis, this improved after RIGHT-sided thoracentesis and it was note that her LEFT-sided effusion is small/not amenable to thoracentesis at this time. Fluid was transudative/favors heart failure. Total fluid removed was 1000 mL serosanguineous (transudative) fluid. significant past medical history of insulin-dependent T2DM, chronic hypoxic res piratory failure in 2-4L NC O2 at baseline, RADHA/untreated, cpap noncompliant, Pulmonary hypertension on sildenafil TID, pulmonary hypertension, morbid obesity, HFpEF, history of CVA, HTN, HLD, CKD III and depression with anxiety 2D echo from Jul 2023 with EF 60-65%, grade 1 diastolic dysfunction, left atrium moderately dilated, mild to moderate MR and elevated RVSP at 40 to 50 mmHg Pt is seen bedside, no family present. She is OOB to recliner and has the comforter pulled over her face. She lowers it a bit for my visit and says the light hurts her eyes, it is noted room is dark and all blinds are closed/no lights are on. She denies acute pain She is SOB at rest on high flow Allergies Allergy/AdvReac Type Severity Reaction Status Date / Time No Known Allergies Allergy Verified 09/24/23 20:25 Home Medications Medication Instructions Recorded Confirmed Type amlodipine 10 mg tablet 10 mg PO DAILY 07/29/23 02/06/24 History escitalopram oxalate 20 mg tablet 20 mg PO DAILY 07/29/23 02/06/24 History hydralazine 100 mg tablet 100 mg PO TID 07/29/23 02/06/24 History metoprolol succinate 100 mg 100 mg PO QAM 07/29/23 02/06/24 History tablet,extended release 24 hr sildenafil (pulm.hypertension) 20 20 mg PO TID 07/29/23 02/06/24 History mg tablet insulin glargine 100 unit/mL (3 25 unit subcut QAM 09/24/23 02/06/24 History mL) subcutaneous pen (Lantus Solostar U-100 Insulin) torsemide 20 mg tablet See Rx Instructions .Route 11/26/23 02/06/24 Rx .COMPLEX #90 tabs aspirin 81 mg capsule 81 mg PO DAILY 02/06/24 02/06/24 History rosuvastatin 20 mg tablet 20 mg PO DAILY 02/06/24 02/06/24 History Patient History Medical History (Updated 02/16/24 @ 14:52 by Carline Huerta DNP) (HFpEF) heart failure with preserved ejection fraction Acute respiratory failure with hypoxia and hypercapnia Hyperkalemia RADHA (obstructive sleep apnea) Obesity, morbid, BMI 40.0-49.9 CKD (chronic kidney disease), stage III Chronic diastolic CHF (congestive heart failure) Pulmonary hypertension Diabetes mellitus, type II Surgical History History of cardiac cath s/p stents Family History (Updated 02/06/24 @ 14:10 by Tati Ghulam, PA-C) Other Cancer Heart disease Social History Smoking Status: Never smoker Do You Dip or Chew Tobacco: No; Hx Alcohol Use: No Hx Substance Use: No Preferred Language: Malay Communication Ability: Effective Pe Electrical Engineer Required: No Beliefs That Will Affect Care: None Current Living Situation: Family Current Living Situation Comment: lives with son Feels Safe at Home: Yes Safety Concerns: Feels Safe At This Time Gender Identity: Female Assistive Devices: Bedside Commode and Oxygen - Continuous Review of Systems Review of Systems: All systems reviewed & are unremarkable except as noted in Subjective Physical Exam Constitutional: + acute distress, + ill appearing, + thi n, + physical limitations, + frail appearing and cooperative Eyes: + anicteric sclerae, PERRL and EOM intac t bilaterally ENMT: external ear and nose normal, oropharynx normal dentition fair Neck: trachea midline, no thyromegaly Respiratory: + respiratory distress, + labored breath ing, + uses accessory muscles, + cough, + tachypneic, + pursed lip breathing and symmetric chest movement; + not able to speak in complete sentence Cardiovascular: irreg irreg, loud S2, Mild JVD tachy Gastrointestinal (Abdomen): normal bowel sounds, soft, nontender, no hepatosplenomegaly Musculoskeletal: gen weakness Skin: + turgor decreased, + skin tightening, + skin atrophy, + dry skin, + pallor and + hair thinning Neurologic: PERRL, EOMI, accommodation nl, no face palsy, no dysarthria Psychiatric: Affect: + depressed affect and + anxious affect Mood: + depressed mood Cognition: recent memory grossly intact, remote memory grossly intact, attention grossly intact and language grossly intact Estimated Intelligence: consistent with education level Insight: excellent insight Judgment: good judgement Results & Data Vital Signs (Past 12 Hours) Vital Signs Temp Pulse Pulse Resp BP Pulse Ox O2 Del Method 02/16/24 08:40 70 02/16/24 08:40 High Flow Nasal Cannula 02/16/24 08:27 90 High Flow Nasal Cannula 02/16/24 08:25 68 20 86 L High Flow Nasal Cannula 02/16/24 07:59 36.8 C 67 20 152/63 H 89 L High Flow Nasal Cannula 02/16/24 04:01 64 20 93 High Flow Nasal Cannula 02/16/24 03:00 37.1 C 66 19 144/62 H 90 High Flow Nasal Cannula 02/15/24 23:15 72 20 92 High Flow Nasal Cannula, Oxyhood 02/15/24 23:09 36.6 C 66 24 130/62 93 High Flow Nasal Cannula 02/15/24 22:52 65 O2 Flow Rate FiO2 02/16/24 08:40 02/16/24 08:40 40 02/16/24 08:27 40 02/16/24 08:25 30 02/16/24 07:59 30 02/16/24 04:01 30 02/16/24 03:00 30 02/15/24 23:15 30 02/15/24 23:09 30 02/15/24 22:52 Laboratory Results 02/16/24 02/16/24 02/16/24 Range/Units 11:19 07:22 06:27 WBC 11.56 H (4.8-10.8) K/ul RBC 3.53 L (4.20-5.40) M/uL Hgb 9.0 L (12.0-16.0) g/dl Hct 28.7 L (37.0-47.0) % MCV 81.3 (80.0-100.0) fL MCH 25.5 (25.0-34.0) pg MCHC 31.4 L (32.0-36.0) g/dL RDW Std Deviation 43.6 (36.4-46.3) fL RDW Coeff of Sven 14.7 H (11.5-14.5) % Plt Count 223 (130-400) K/uL MPV 10.3 (9.4-12.4) fL Immature Gran % (Auto) 1.0 % Neut % (Auto) 80.4 % Lymph % (Auto) 8.1 % [place] % (Auto) 7.7 % Eos % (Auto) 2.0 % Baso % (Auto) 0.8 % Neut # (Auto) 9.29 H (1.40-6.50) K/uL Lymph # (Auto) 0.94 L (1.20-3.40) K/uL [place] # (Auto) 0.89 H (0.11-0.59) K/uL Eos # (Auto) 0.23 (0.00-0.50) K/uL Baso # (Auto) 0.09 (0.00-0.20) K/uL Immature Gran # (Auto) 0.12 (0.01-0.20) K/uL D-Dimer (0-500) ug/L FEU Sodium 134 L (136-145) mmol/L Potassium 4.5 (3.5-5.1) mmol/L Chloride 95 L (98-107) mmol/L Carbon Dioxide 33 H (21-32) mmol/L Anion Gap 6 (3-11) BUN 68 H (6-23) mg/dl Creatinine 1.93 H (0.6-1.2) mg/dl Est Cr Clr Drug Dosing 33.0 ml/min Est GFR ( Amer) 30.9 ml/min Est GFR (Non-Af Amer) 26.7 ml/min BUN/Creatinine Ratio 35.2 H (10-20) Glucose 152 H (70-99(Fasting)) mg/dl POC Glucose 237 H 183 H (70-99) mg/dl Calcium 9.4 (8.6-10.3) mg/dl Ur Random Sodium mmol/L Pleural Cholesterol mg/dL Stl C. diff Tox B Gene (Neg) Stl C.difficile Tox A&B (Negative) 02/15/24 02/15/24 02/15/24 Range/Units 20:02 16:23 11:07 WBC (4.8-10.8) K/ul RBC (4.20-5.40) M/uL Hgb (12.0-16.0) g/dl Hct (37.0-47.0) % MCV (80.0-100.0) fL MCH (25.0-34.0) pg MCHC (32.0-36.0) g/dL RDW Std Deviation (36.4-46.3) fL RDW Coeff of Sven (11.5-14.5) % Plt Count (130-400) K/uL MPV (9.4-12.4) fL Immature Gran % (Auto) % Neut % (Auto) % Lymph % (Auto) % [place] % (Auto) % Eos % (Auto) % Baso % (Auto) % Neut # (Auto) (1.40-6.50) K/uL Lymph # (Auto) (1.20-3.40) K/uL [place] # (Auto) (0.11-0.59) K/uL Eos # (Auto) (0.00-0.50) K/uL Baso # (Auto) (0.00-0.20) K/uL Immature Gran # (Auto) (0.01-0.20) K/uL D-Dimer (0-500) ug/L FEU Sodium (136-145) mmol/L Potassium (3.5-5.1) mmol/L Chloride (98-107) mmol/L Carbon Dioxide (21-32) mmol/L Anion Gap (3-11) BUN (6-23) mg/dl Creatinine (0.6-1.2) mg/dl Est Cr Clr Drug Dosing ml/min Est GFR ( Amer) ml/min Est GFR (Non-Af Amer) ml/min BUN/Creatinine Ratio (10-20) Glucose (70-99(Fasting)) mg/dl POC Glucose 194 H 186 H 265 H (70-99) mg/dl Calcium (8.6-10.3) mg/dl Ur Random Sodium mmol/L Pleural Cholesterol mg/dL Stl C. diff Tox B Gene (Neg) Stl C.difficile Tox A&B (Negative) 02/15/24 02/15/24 02/14/24 Range/Units 07:22 06:39 20:16 WBC (4.8-10.8) K/ul RBC (4.20-5.40) M/uL Hgb (12.0-16.0) g/dl Hct (37.0-47.0) % MCV (80.0-100.0) fL MCH (25.0-34.0) pg MCHC (32.0-36.0) g/dL RDW Std Deviation (36.4-46.3) fL RDW Coeff of Sven (11.5-14.5) % Plt Count (130-400) K/uL MPV (9.4-12.4) fL Immature Gran % (Auto) % Neut % (Auto) % Lymph % (Auto) % [place] % (Auto) % Eos % (Auto) % Baso % (Auto) % Neut # (Auto) (1.40-6.50) K/uL Lymph # (Auto) (1.20-3.40) K/uL [place] # (Auto) (0.11-0.59) K/uL Eos # (Auto) (0.00-0.50) K/uL Baso # (Auto) (0.00-0.20) K/uL Immature Gran # (Auto) (0.01-0.20) K/uL D-Dimer (0-500) ug/L FEU Sodium 136 (136-145) mmol/L Potassium 3.9 (3.5-5.1) mmol/L Chloride 96 L (98-107) mmol/L Carbon Dioxide 34 H (21-32) mmol/L Anion Gap 6 (3-11) BUN 60 H (6-23) mg/dl Creatinine 1.88 H (0.6-1.2) mg/dl Est Cr Clr Drug Dosing 33.9 ml/min Est GFR ( Amer) 31.9 ml/min Est GFR (Non-Af Amer) 27.5 ml/min BUN/Creatinine Ratio 31.9 H (10-20) Glucose 139 H (70-99(Fasting)) mg/dl POC Glucose 163 H 164 H (70-99) mg/dl Calcium 9.6 (8.6-10.3) mg/dl Ur Random Sodium mmol/L Pleural Cholesterol mg/dL Stl C. diff Tox B Gene (Neg) Stl C.difficile Tox A&B (Negative) 02/14/24 02/14/24 02/14/24 Range/Units 16:06 11:19 06:50 WBC (4.8-10.8) K/ul RBC (4.20-5.40) M/uL Hgb (12.0-16.0) g/dl Hct (37.0-47.0) % MCV (80.0-100.0) fL MCH (25.0-34.0) pg MCHC (32.0-36.0) g/dL RDW Std Deviation (36.4-46.3) fL RDW Coeff of Sven (11.5-14.5) % Plt Count (130-400) K/uL MPV (9.4-12.4) fL Immature Gran % (Auto) % Neut % (Auto) % Lymph % (Auto) % [place] % (Auto) % Eos % (Auto) % Baso % (Auto) % Neut # (Auto) (1.40-6.50) K/uL Lymph # (Auto) (1.20-3.40) K/uL [place] # (Auto) (0.11-0.59) K/uL Eos # (Auto) (0.00-0.50) K/uL Baso # (Auto) (0.00-0.20) K/uL Immature Gran # (Auto) (0.01-0.20) K/uL D-Dimer (0-500) ug/L FEU Sodium (136-145) mmol/L Potassium (3.5-5.1) mmol/L Chloride (98-107) mmol/L Carbon Dioxide (21-32) mmol/L Anion Gap (3-11) BUN (6-23) mg/dl Creatinine (0.6-1.2) mg/dl Est Cr Clr Drug Dosing ml/min Est GFR ( Amer) ml/min Est GFR (Non-Af Amer) ml/min BUN/Creatinine Ratio (10-20) Glucose (70-99(Fasting)) mg/dl POC Glucose 105 H 185 H 164 H (70-99) mg/dl Calcium (8.6-10.3) mg/dl Ur Random Sodium mmol/L Pleural Cholesterol mg/dL Stl C. diff Tox B Gene (Neg) Stl C.difficile Tox A&B (Negative) 02/14/24 02/13/24 02/13/24 Range/Units 05:33 20:13 16:21 WBC (4.8-10.8) K/ul RBC (4.20-5.40) M/uL Hgb (12.0-16.0) g/dl Hct (37.0-47.0) % MCV (80.0-100.0) fL MCH (25.0-34.0) pg MCHC (32.0-36.0) g/dL RDW Std Deviation (36.4-46.3) fL RDW Coeff of Sven (11.5-14.5) % Plt Count (130-400) K/uL MPV (9.4-12.4) fL Immature Gran % (Auto) % Neut % (Auto) % Lymph % (Auto) % [place] % (Auto) % Eos % (Auto) % Baso % (Auto) % Neut # (Auto) (1.40-6.50) K/uL Lymph # (Auto) (1.20-3.40) K/uL [place] # (Auto) (0.11-0.59) K/uL Eos # (Auto) (0.00-0.50) K/uL Baso # (Auto) (0.00-0.20) K/uL Immature Gran # (Auto) (0.01-0.20) K/uL D-Dimer (0-500) ug/L FEU Sodium 136 (136-145) mmol/L Potassium 3.5 (3.5-5.1) mmol/L Chloride 95 L (98-107) mmol/L Carbon Dioxide 33 H (21-32) mmol/L Anion Gap 8 (3-11) BUN 59 H (6-23) mg/dl Creatinine 1.80 H (0.6-1.2) mg/dl Est Cr Clr Drug Dosing 35.8 ml/min Est GFR ( Amer) 33.6 ml/min Est GFR (Non-Af Amer) 29.0 ml/min BUN/Creatinine Ratio 32.8 H (10-20) Glucose 142 H (70-99(Fasting)) mg/dl POC Glucose 169 H 142 H (70-99) mg/dl Calcium 9.7 (8.6-10.3) mg/dl Ur Random Sodium mmol/L Pleural Cholesterol mg/dL Stl C. diff Tox B Gene (Neg) Stl C.difficile Tox A&B (Negative) 02/13/24 02/13/24 02/13/24 Range/Units 11:33 06:59 06:27 WBC (4.8-10.8) K/ul RBC (4.20-5.40) M/uL Hgb (12.0-16.0) g/dl Hct (37.0-47.0) % MCV (80.0-100.0) fL MCH (25.0-34.0) pg MCHC (32.0-36.0) g/dL RDW Std Deviation (36.4-46.3) fL RDW Coeff of Sven (11.5-14.5) % Plt Count (130-400) K/uL MPV (9.4-12.4) fL Immature Gran % (Auto) % Neut % (Auto) % Lymph % (Auto) % [place] % (Auto) % Eos % (Auto) % Baso % (Auto) % Neut # (Auto) (1.40-6.50) K/uL Lymph # (Auto) (1.20-3.40) K/uL [place] # (Auto) (0.11-0.59) K/uL Eos # (Auto) (0.00-0.50) K/uL Baso # (Auto) (0.00-0.20) K/uL Immature Gran # (Auto) (0.01-0.20) K/uL D-Dimer (0-500) ug/L FEU Sodium 137 (136-145) mmol/L Potassium 4.0 (3.5-5.1) mmol/L Chloride 97 L (98-107) mmol/L Carbon Dioxide 32 (21-32) mmol/L Anion Gap 8 (3-11) BUN 63 H (6-23) mg/dl Creatinine 1.90 H (0.6-1.2) mg/dl Est Cr Clr Drug Dosing 33.8 ml/min Est GFR ( Amer) 31.5 ml/min Est GFR (Non-Af Amer) 27.2 ml/min BUN/Creatinine Ratio 33.2 H (10-20) Glucose 143 H (70-99(Fasting)) mg/dl POC Glucose 194 H 153 H (70-99) mg/dl Calcium 9.5 (8.6-10.3) mg/dl Ur Random Sodium mmol/L Pleural Cholesterol mg/dL Stl C. diff Tox B Gene (Neg) Stl C.difficile Tox A&B (Negative) 02/12/24 02/12/24 02/12/24 Range/Units 22:40 20:03 16:10 WBC (4.8-10.8) K/ul RBC (4.20-5.40) M/uL Hgb (12.0-16.0) g/dl Hct (37.0-47.0) % MCV (80.0-100.0) fL MCH (25.0-34.0) pg MCHC (32.0-36.0) g/dL RDW Std Deviation (36.4-46.3) fL RDW Coeff of Sven (11.5-14.5) % Plt Count (130-400) K/uL MPV (9.4-12.4) fL Immature Gran % (Auto) % Neut % (Auto) % Lymph % (Auto) % [place] % (Auto) % Eos % (Auto) % Baso % (Auto) % Neut # (Auto) (1.40-6.50) K/uL Lymph # (Auto) (1.20-3.40) K/uL [place] # (Auto) (0.11-0.59) K/uL Eos # (Auto) (0.00-0.50) K/uL Baso # (Auto) (0.00-0.20) K/uL Immature Gran # (Auto) (0.01-0.20) K/uL D-Dimer (0-500) ug/L FEU Sodium (136-145) mmol/L Potassium (3.5-5.1) mmol/L Chloride (98-107) mmol/L Carbon Dioxide (21-32) mmol/L Anion Gap (3-11) BUN (6-23) mg/dl Creatinine (0.6-1.2) mg/dl Est Cr Clr Drug Dosing ml/min Est GFR ( Amer) ml/min Est GFR (Non-Af Amer) ml/min BUN/Creatinine Ratio (10-20) Glucose (70-99(Fasting)) mg/dl POC Glucose 194 H 129 H (70-99) mg/dl Calcium (8.6-10.3) mg/dl Ur Random Sodium mmol/L Pleural Cholesterol mg/dL Stl C. diff Tox B Gene Positive Cdiff Gene H (Neg) Stl C.difficile Tox A&B Positive Cdiff Toxin A* (Negative) 02/12/24 02/12/24 02/12/24 Range/Units 10:50 07:03 05:40 WBC (4.8-10.8) K/ul RBC (4.20-5.40) M/uL Hgb (12.0-16.0) g/dl Hct (37.0-47.0) % MCV (80.0-100.0) fL MCH (25.0-34.0) pg MCHC (32.0-36.0) g/dL RDW Std Deviation (36.4-46.3) fL RDW Coeff of Sven (11.5-14.5) % Plt Count (130-400) K/uL MPV (9.4-12.4) fL Immature Gran % (Auto) % Neut % (Auto) % Lymph % (Auto) % [place] % (Auto) % Eos % (Auto) % Baso % (Auto) % Neut # (Auto) (1.40-6.50) K/uL Lymph # (Auto) (1.20-3.40) K/uL [place] # (Auto) (0.11-0.59) K/uL Eos # (Auto) (0.00-0.50) K/uL Baso # (Auto) (0.00-0.20) K/uL Immature Gran # (Auto) (0.01-0.20) K/uL D-Dimer (0-500) ug/L FEU Sodium 136 (136-145) mmol/L Potassium 4.0 (3.5-5.1) mmol/L Chloride 98 (98-107) mmol/L Carbon Dioxide 32 (21-32) mmol/L Anion Gap 6 (3-11) BUN 64 H (6-23) mg/dl Creatinine 2.14 H (0.6-1.2) mg/dl Est Cr Clr Drug Dosing 30.3 ml/min Est GFR ( Amer) 27.3 ml/min Est GFR (Non-Af Amer) 23.5 ml/min BUN/Creatinine Ratio 29.9 H (10-20) Glucose 106 H (70-99(Fasting)) mg/dl POC Glucose 164 H 114 H (70-99) mg/dl Calcium 9.4 (8.6-10.3) mg/dl Ur Random Sodium mmol/L Pleural Cholesterol mg/dL Stl C. diff Tox B Gene (Neg) Stl C.difficile Tox A&B (Negative) 02/11/24 02/11/24 02/11/24 Range/Units 21:29 16:07 12:20 WBC (4.8-10.8) K/ul RBC (4.20-5.40) M/uL Hgb (12.0-16.0) g/dl Hct (37.0-47.0) % MCV (80.0-100.0) fL MCH (25.0-34.0) pg MCHC (32.0-36.0) g/dL RDW Std Deviation (36.4-46.3) fL RDW Coeff of Sven (11.5-14.5) % Plt Count (130-400) K/uL MPV (9.4-12.4) fL Immature Gran % (Auto) % Neut % (Auto) % Lymph % (Auto) % [place] % (Auto) % Eos % (Auto) % Baso % (Auto) % Neut # (Auto) (1.40-6.50) K/uL Lymph # (Auto) (1.20-3.40) K/uL [place] # (Auto) (0.11-0.59) K/uL Eos # (Auto) (0.00-0.50) K/uL Baso # (Auto) (0.00-0.20) K/uL Immature Gran # (Auto) (0.01-0.20) K/uL D-Dimer (0-500) ug/L FEU Sodium (136-145) mmol/L Potassium (3.5-5.1) mmol/L Chloride (98-107) mmol/L Carbon Dioxide (21-32) mmol/L Anion Gap (3-11) BUN (6-23) mg/dl Creatinine (0.6-1.2) mg/dl Est Cr Clr Drug Dosing ml/min Est GFR ( Amer) ml/min Est GFR (Non-Af Amer) ml/min BUN/Creatinine Ratio (10-20) Glucose (70-99(Fasting)) mg/dl POC Glucose 124 H 115 H (70-99) mg/dl Calcium (8.6-10.3) mg/dl Ur Random Sodium 90 mmol/L Pleural Cholesterol mg/dL Stl C. diff Tox B Gene (Neg) Stl C.difficile Tox A&B (Negative) 02/11/24 02/11/24 02/11/24 Range/Units 11:02 07:02 06:05 WBC 12.25 H (4.8-10.8) K/ul RBC 3.69 L (4.20-5.40) M/uL Hgb 9.3 L (12.0-16.0) g/dl Hct 29.7 L (37.0-47.0) % MCV 80.5 (80.0-100.0) fL MCH 25.2 (25.0-34.0) pg MCHC 31.3 L (32.0-36.0) g/dL RDW Std Deviation 44.2 (36.4-46.3) fL RDW Coeff of Sven 15.3 H (11.5-14.5) % Plt Count 201 (130-400) K/uL MPV 9.1 L (9.4-12.4) fL Immature Gran % (Auto) 0.5 % Neut % (Auto) 82.5 % Lymph % (Auto) 6.2 % [place] % (Auto) 6.9 % Eos % (Auto) 3.3 % Baso % (Auto) 0.6 % Neut # (Auto) 10.10 H (1.40-6.50) K/uL Lymph # (Auto) 0.76 L (1.20-3.40) K/uL [place] # (Auto) 0.85 H (0.11-0.59) K/uL Eos # (Auto) 0.41 (0.00-0.50) K/uL Baso # (Auto) 0.07 (0.00-0.20) K/uL Immature Gran # (Auto) 0.06 (0.01-0.20) K/uL D-Dimer (0-500) ug/L FEU Sodium 136 (136-145) mmol/L Potassium 4.3 (3.5-5.1) mmol/L Chloride 99 (98-107) mmol/L Carbon Dioxide 31 (21-32) mmol/L Anion Gap 6 (3-11) BUN 67 H (6-23) mg/dl Creatinine 2.28 H (0.6-1.2) mg/dl Est Cr Clr Drug Dosing 28.9 ml/min Est GFR ( Amer) 25.3 ml/min Est GFR (Non-Af Amer) 21.8 ml/min BUN/Creatinine Ratio 29.4 H (10-20) Glucose 131 H (70-99(Fasting)) mg/dl POC Glucose 288 H 137 H (70-99) mg/dl Calcium 9.3 (8.6-10.3) mg/dl Ur Random Sodium mmol/L Pleural Cholesterol mg/dL Stl C. diff Tox B Gene (Neg) Stl C.difficile Tox A&B (Negative) 02/10/24 02/10/24 02/10/24 Range/Units 20:26 16:37 11:20 WBC (4.8-10.8) K/ul RBC (4.20-5.40) M/uL Hgb (12.0-16.0) g/dl Hct (37.0-47.0) % MCV (80.0-100.0) fL MCH (25.0-34.0) pg MCHC (32.0-36.0) g/dL RDW Std Deviation (36.4-46.3) fL RDW Coeff of Sven (11.5-14.5) % Plt Count (130-400) K/uL MPV (9.4-12.4) fL Immature Gran % (Auto) % Neut % (Auto) % Lymph % (Auto) % [place] % (Auto) % Eos % (Auto) % Baso % (Auto) % Neut # (Auto) (1.40-6.50) K/uL Lymph # (Auto) (1.20-3.40) K/uL [place] # (Auto) (0.11-0.59) K/uL Eos # (Auto) (0.00-0.50) K/uL Baso # (Auto) (0.00-0.20) K/uL Immature Gran # (Auto) (0.01-0.20) K/uL D-Dimer (0-500) ug/L FEU Sodium (136-145) mmol/L Potassium (3.5-5.1) mmol/L Chloride (98-107) mmol/L Carbon Dioxide (21-32) mmol/L Anion Gap (3-11) BUN (6-23) mg/dl Creatinine (0.6-1.2) mg/dl Est Cr Clr Drug Dosing ml/min Est GFR ( Amer) ml/min Est GFR (Non-Af Amer) ml/min BUN/Creatinine Ratio (10-20) Glucose (70-99(Fasting)) mg/dl POC Glucose 174 H 109 H 176 H (70-99) mg/dl Calcium (8.6-10.3) mg/dl Ur Random Sodium mmol/L Pleural Cholesterol mg/dL Stl C. diff Tox B Gene (Neg) Stl C.difficile Tox A&B (Negative) 02/10/24 02/10/24 02/09/24 Range/Units 07:13 07:01 20:08 WBC (4.8-10.8) K/ul RBC (4.20-5.40) M/uL Hgb (12.0-16.0) g/dl Hct (37.0-47.0) % MCV (80.0-100.0) fL MCH (25.0-34.0) pg MCHC (32.0-36.0) g/dL RDW Std Deviation (36.4-46.3) fL RDW Coeff of Sven (11.5-14.5) % Plt Count (130-400) K/uL MPV (9.4-12.4) fL Immature Gran % (Auto) % Neut % (Auto) % Lymph % (Auto) % [place] % (Auto) % Eos % (Auto) % Baso % (Auto) % Neut # (Auto) (1.40-6.50) K/uL Lymph # (Auto) (1.20-3.40) K/uL [place] # (Auto) (0.11-0.59) K/uL Eos # (Auto) (0.00-0.50) K/uL Baso # (Auto) (0.00-0.20) K/uL Immature Gran # (Auto) (0.01-0.20) K/uL D-Dimer (0-500) ug/L FEU Sodium 137 (136-145) mmol/L Potassium 4.6 (3.5-5.1) mmol/L Chloride 101 (98-107) mmol/L Carbon Dioxide 30 (21-32) mmol/L Anion Gap 6 (3-11) BUN 65 H (6-23) mg/dl Creatinine 2.06 H (0.6-1.2) mg/dl Est Cr Clr Drug Dosing 32.0 ml/min Est GFR ( Amer) 28.6 ml/min Est GFR (Non-Af Amer) 24.7 ml/min BUN/Creatinine Ratio 31.6 H (10-20) Glucose 122 H (70-99(Fasting)) mg/dl POC Glucose 192 H 146 H (70-99) mg/dl Calcium 9.2 (8.6-10.3) mg/dl Ur Random Sodium mmol/L Pleural Cholesterol mg/dL Stl C. diff Tox B Gene (Neg) Stl C.difficile Tox A&B (Negative) 02/09/24 02/09/24 02/09/24 Range/Units 16:08 14:54 13:18 WBC (4.8-10.8) K/ul RBC (4.20-5.40) M/uL Hgb (12.0-16.0) g/dl Hct (37.0-47.0) % MCV (80.0-100.0) fL MCH (25.0-34.0) pg MCHC (32.0-36.0) g/dL RDW Std Deviation (36.4-46.3) fL RDW Coeff of Sven (11.5-14.5) % Plt Count (130-400) K/uL MPV (9.4-12.4) fL Immature Gran % (Auto) % Neut % (Auto) % Lymph % (Auto) % [place] % (Auto) % Eos % (Auto) % Baso % (Auto) % Neut # (Auto) (1.40-6.50) K/uL Lymph # (Auto) (1.20-3.40) K/uL [place] # (Auto) (0.11-0.59) K/uL Eos # (Auto) (0.00-0.50) K/uL Baso # (Auto) (0.00-0.20) K/uL Immature Gran # (Auto) (0.01-0.20) K/uL D-Dimer 1280 H* (0-500) ug/L FEU Sodium (136-145) mmol/L Potassium (3.5-5.1) mmol/L Chloride (98-107) mmol/L Carbon Dioxide (21-32) mmol/L Anion Gap (3-11) BUN (6-23) mg/dl Creatinine (0.6-1.2) mg/dl Est Cr Clr Drug Dosing ml/min Est GFR ( Amer) ml/min Est GFR (Non-Af Amer) ml/min BUN/Creatinine Ratio (10-20) Glucose (70-99(Fasting)) mg/dl POC Glucose 106 H (70-99) mg/dl Calcium (8.6-10.3) mg/dl Ur Random Sodium mmol/L Pleural Cholesterol 19 mg/dL Stl C. diff Tox B Gene (Neg) Stl C.difficile Tox A&B (Negative) Diagnostic Findings Chest X-Ray 02/06/24 10:58 SINGLE VIEW CHEST CLINICAL HISTORY: Dyspnea FINDINGS: An AP, portable, upright chest radiograph is compared to study dated 11/22/2023 and correlated with chest CT dated 09/25/2023. The heart is enlarged. There is pulmonary vascular congestion. There is airspace consolidation in the mid to lower lungs bilaterally as well as small pleural effusions. No pneumothorax is seen. The skeletal structures are osteopenic. The bony thorax is grossly intact. Arthritic change is seen in the shoulders. IMPRESSION: 1. Cardiomegaly without evidence of congestive failure. 2. There is airspace consolidation in the mid to lower lungs bilaterally with small pleural effusions. This could represent pulmonary edema, atelectasis, and/or multifocal pneumonia. Clinical correlation will be required and radiographic follow-up to resolution is recommended ACT 112: Negative or not required by law. Electronically signed by: Tomi Miller M.D. 02/06/2024 1:[address] 02/06/24 16:50 CT SCAN OF THE CHEST WITHOUT IV CONTRAST CLINICAL HISTORY: Pneumonia. Pleural effusion. COMPARISON STUDY: Chest x-ray dated 02/06/2024. Chest CT dated 09/25/2023. TECHNIQUE: CT scan of the thorax was performed from the thoracic inlet to the upper abdomen. Images are reviewed in the axial, sagittal, and coronal planes. IV contrast was not administered for this examination as per the referring clinician. A dose lowering technique was utilized adhering to the principles of ALARA. CT DOSE: 982.41 mGy.cm FINDINGS: Thyroid: Imaged portions of the thyroid gland are normal in size and attenuation. Thoracic aorta: There is moderate atherosclerotic calcification of the thoracic aorta, which is normal in caliber and demonstrates standard 3-vessel arch anatomy. Heart: The heart is enlarged and without pericardial effusion. The coronary arteries are densely calcified. There is diminished attenuation of the cardiac blood pool is compared to the myocardium suggesting anemia. The pulmonary trunk is dilated, measuring 4.0 cm in diameter. This suggests pulmonary artery hypertension. Lungs and pleural spaces: Intralobular septal thickening is seen throughout both lungs. There are moderate pleural effusions with dependent consolidation, right larger than left. The trachea and central airways are clear. Mediastinum: Mildly enlarged mediastinal lymph nodes measure up to 13 mm in short axis. These are similar to previous. Jana: Not well assessed without IV contrast. Axillae: There is no axillary lymphadenopathy. Upper abdomen: The liver is cirrhotic in morphology and heterogeneous attenuation. There is nodularity of the hepatic surface contour. There is a small volume of perihepatic ascites. Skeletal structures: The skeletal structures are osteopenic. No lytic or blastic bony lesions are seen. Degenerative change is noted in the shoulders and spine. IMPRESSION: 1. Cardiomegaly with evidence of congestive failure and pulmonary edema. Radiographic follow-up to resolution is recommended. 2. Right larger than left pleural effusions with dependent consolidation. 3. Mildly enlarged mediastinal lymph nodes are nonspecific and unchanged from previous. 4. Cirrhotic liver morphology and small volume perihepatic ascites. 5. Additional findings as above. ACT 112: Negative or not required by law. Electronically signed by: Tomi Miller M.D. 02/06/2024 8:03 PM Chest X-Ray 02/08/24 15:44 XR chest 1V portable HISTORY: ff up pleural effusion COMPARISON: Chest 02/06/2024. FINDINGS: No pneumothorax. Bilateral pleural effusions and bibasilar densities persist. The heart remains enlarged. Pulmonary edema remains unchanged. No acute fractures identified. IMPRESSION: 1. Cardiomegaly with pulmonary edema and bilateral pleural effusions. This is similar to the prior study. 2. Bibasilar densities persist and may represent atelectasis or pneumonia. ACT 112: Negative or not required by law. Electronically signed by: Giuliano Loera M.D. 02/08/2024 4:13 PM Venous Doppler Study 02/09/24 09:12 BILATERAL LOWER EXTREMITY VENOUS DOPPLER CLINICAL HISTORY: Shortness of breath. Evaluate for deep venous thrombus. COMPARISON STUDY: No previous studies for comparison. TECHNIQUE: Sonography of the deep venous system of the bilateral lower extremities was performed. Compression and augmentation were evaluated. FINDINGS: This exam was compromised due to suboptimal penetration. The bilateral common femoral, superficial femoral and popliteal veins were compressible. Augmentation was normal. Flow was shown within the deep calf vessels. IMPRESSION: Exam compromised due to suboptimal penetration but no evidence of deep venous thrombus within the bilateral lower extremities. ACT 112: Negative or not required by law. Electronically signed by: Bruce Cai M.D. 02/09/2024 11:16 AM Chest X-Ray 02/09/24 12:42 XR chest 1V portable CLINICAL HISTORY: s/p RIGHT sided thora COMPARISON STUDY: Chest CT February 06, 2024. Chest radiograph February 08, 2024. FINDINGS: There is no pneumothorax following right thoracentesis. Right pleural effusion has significantly decreased in size since prior exam. A small left pleural effusion persists. Left basilar opacity is again noted. Right lower lung aeration has improved. Cardiomediastinal silhouette is stable. Pulmonary edema persists. IMPRESSION: 1. No pneumothorax following right thoracentesis. Significant decrease in size of the right pleural effusion. Improved right lower lung aeration. 2. Small left pleural effusion with persistent left basilar opacity. 3. Cardiomegaly with pulmonary edema. ACT 112: Negative or not required by law. Electronically signed by: Bruce Cai M.D. 02/09/2024 2:16 PM Chest X-Ray 02/10/24 09:04 XR chest 1V portable CLINICAL HISTORY: hypoxia COMPARISON STUDY: Chest CT February 06, 2024. Chest radiograph February 09, 2024. FINDINGS: No pneumothorax. Small bilateral pleural effusions are present. Right basilar opacity has increased. There is persistent left basilar opacity. Cardiomegaly is again noted with mild interstitial thickening. IMPRESSION: 1. Cardiomegaly with persistent pulmonary edema. 2. Small bilateral pleural effusions. Increase in right basilar opacity which could reflect pneumonia or atelectasis. Persistent left basilar opacity. ACT 112: Negative or not required by law. Electronically signed by: Bruce Cai M.D. 02/10/2024 9:44 AM Pulmonary Perfusion Imaging 02/10/24 09:59 NM pul perfusion CLINICAL HISTORY: Pulmonary hypertension. Respiratory failure. Evaluate for perfusion defect. COMPARISON STUDY: Chest CT February 06, 2024. Chest radiograph performed earlier today. TECHNIQUE: Nuclear medicine perfusion study was performed following intravenous injection of 4.5 mCi of technetium 99m MAA. Imaging of the chest was performed in multiple projections. No ventilation imaging was performed given ventilation precautions. FINDINGS: There is mildly heterogeneous perfusion to both lungs. However, no segmental defects are identified to strongly suggest pulmonary embolus. Exam is compromised from a technical standpoint given lack of ventilation imaging. No areas of abnormal radiotracer uptake are identified. This study is considered low probability for pulmonary embolus. IMPRESSION: Technically compromised exam, as described above. However, study considered low probability for pulmonary embolus. ACT 112: Negative or not required by law. Electronically signed by: Bruce Cai M.D. 02/10/2024 2:26 PM Chest X-Ray 02/15/24 10:31 XR chest 1V portable HISTORY: Follow up on pulmonary edema COMPARISON: Chest 02/02/2024. FINDINGS: No pneumothorax. The heart remains enlarged. There are low lung volumes again noted. Small bilateral pleural effusions and patchy bibasilar densities persist. Perihilar hazy airspace opacities with interstitial vascular thickening and progressed. This is consistent with moderate pulmonary edema. IMPRESSION: 1. Interval progression of the moderate pulmonary edema. 2. Cardiomegaly, small bilateral pleural effusions, and bibasilar densities persist ACT 112: Negative or not required by law. Electronically signed by: Giuliano Loera M.D. 02/15/2024 11:19 AM PG Care Time/CCT Total # of Minutes Spent Total Time Spent with Patient: Total time spent is greater than 50% in coordination of care (as documented) at patient's floor/unit and/or counseling patient: I spent 90 minutes overall addressing this case: 20 min in medical data review/discussion with referring provider(s) and/or preparation for the visit 20 min in direct interaction with the patient/exam 30 min in Advance Care Planning/Goals of Care discussions as detailed above in note (must be >16min) 10 min in subsequent review and synthesis of assessment and plan 10 min communicating with other providers regarding the patient's case: primary team and care mgt Advanced Care Planning 05089 Advanced Care Planning 30 [place] [address] IN/OBS CONSULT LVL 4,60M (25 - SIGNIFICANT, SEPARATELY IDENTIFIABLE ) Patient Type New Medical Decision Making High Complexity Diagnoses Dyspnea and respiratory abnormalities R06.00; R06.89 Weakness generalized R53.1 Advanced care planning/counseling discussion Z71.89 Palliative care by specialist Z51.5 Anxiety and depression F41.9; F32.A Additional Codes Advanced Care Planning - 02219 Advanced Care Planning 30 Min: [id number] Advanced Care Planning 30 Min ([id number])
--- NOTE | 2024-02-16 10:00 | Hospitalist Progress Note ---
Date of Service February 16, 2024 Assessment & Plan (1) Acute and chronic respiratory failure: (2) Pneumonia: (3) Pulmonary hypertension: (4) (HFpEF) heart failure with preserved ejection fraction: (5) Acute kidney injury superimposed on chronic kidney disease: (6) Hypothyroidism: (7) CAD (coronary artery disease): (8) Hypertension: Plan This is a 63-year-old female who has a significant past medical history of insulin-dependent T2DM, chronic hypoxic respiratory failure in 2-4L NC O2 at baseline, RADHA on nocturnal oxygen, pulmonary hypertension, morbid obesity, HFpEF, history of CVA, HTN, HLD, CKD and depression with anxiety who presents to ED secondary to progressive SOB since yesterday and was found to have acute on chronic respiratory failure in setting of PNA. Acute on chronic hypoxic respiratory failure Bilateral pleural effusion s/p right sided thoracentesis on 02/08 Possible Bilateral PNA Patient presented with shortness of breath; spo2 was 78% in RA. Afebrile, no leukocytosis, BNP 142, procal within normal range, respiratory viral panel negative CXR with cardiomegaly without evidence of congestive failure, presence of airspace consolidation in the mid to lower lungs bilaterally with small pleural effusions MRSA screen negative CT chest on admission suggestive of significant pulmonary edema. Venous duplexnegative for DVT Pulmonary perfusion scan -low probability of PE Cardiology and pulmonary service consulted Patient was on 60 mg IV Lasix 4 times a day; urine output has decreased; repeat CXR on 02/14 shows increasing pulmonary edema. Lasix increased to 80mg iv lasix 4 times a day; also give one dose of metolazone. Pleural fluid analysis suggestive of transudative pattern; likely secondary to HFpEF. Completed antibiotics for possible pneumonia ( completed course on 02/11/2024) C. difficile infection Patient reported loose stool; C. difficile positive on 02/11 Started on oral vancomycin; plan to treat for 10 days Acute on chronic HFpEF 2D echo from Jul 2023 with EF 60-65%, grade 1 diastolic dysfunction, left atrium moderately dilated, mild to moderate MR and elevated RVSP at 40 to 50 mmHg management per above; currently on lasix CKD stage III Cr seems to range from 1.2-1-5 as an outpatient and 1.5-2 per hospital records Creatinine within baseline range Hx Lung nodules Subcarinal Lymphadenopathy Follows with pulmonary DM II Last A1c 8.1 on 12/29/23 Hold home agents Basal/bolus insulin per protocol while admitted BSG AC HS CAD with hx of Stent HLD Continue home aspirin, statin, Metoprolol Hypertension Continue Toprol, amlodipine Hydralazine on hold to allow for slightly higher blood pressure as patient is on high-dose of diuretics History of CVA MRI brain 08/08 revealed small acute infarcts in bilateral occipital lobe concerning for embolic infarcts Per previous notes, no anticoagulation recommended given significant fall risk and vision issues unless clear arrhythmias confirmed RADHA, untreated, cpap noncompliant Pulmonary hypertension Continue sildenafil TID Possible that RADHA is contributing, but patient reports difficulty tolerating cpap mask Continue BIPAP Q HS inpatient Due to see sleep medicine on 02/09/24 Depression with anxiety Continue Lexapro Morbid Obesity, Continue to encourage diet and lifestyle modifications DVT Ppx: SQ heparin Code status: DNR/DNI PCP: [facility]imal Dispo: pending.Continues to be hospitalized for acute hypoxic respiratory failure requiring high flow nasal cannula, acute on chronic diastolic heart failure. PT/OT eval ordered. plan to wean off oxygen as tolerated. Goals of care- I updated patient's daughter over the phone 02/15/2024. She acknowledged that patient is having a difficult year with multiple hospitalizat ion. We discussed that patient does not want aggressive interventions; patient refused BiPAP today. Plan is to see how patient does in next few days. If her respiratory status continues to decompensate; comfort measures to be initiated. Consulted palliative to continue ongoing goals of care discussion. Time spent evaluating patient, direct bedside care, chart review, placing ord ers, interpretation of diagnostic studies, discussion with consultants, patient, and family members, as well as other required patient management activities is 50 minutes Please note the above document was generated using voice recognition software. It may contain grammatical, syntax or spelling errors. Any formal questions or concerns about the content, text or information contained within the body of this dictation should be directly addressed to the provider for clarification Admission and Anticipated Discharge Date Admission Date: February 06, 2024 Subjective Patient continues to require high flow nasal cannula for mentation of saturation. Vital signs are stable Patient reports her breathing is slightly improved compared to yesterday Review of Systems Review of Systems: All systems reviewed & are unremarkable except as noted in Subjective Physical Exam Physical Exam: General- oriented x 3, not in distress, speaks in sentences with no effort or accessory muscle use Eyes- anicteric Lungs- Decreased breath sound at bases. crackles +nt Heart- normal rate, regular rhythm; no murmurs Abdomen- normal bowel sounds, nondistended, soft, nontender Extremities-grade 1-2 lower extremity edema- improving, no calf tenderness Neuro- alert, oriented x 3; no gross focal neurologic deficits Skin- warm & dry Results & Data Results & Data Vital Signs (Past 12 Hours) Vital Signs Temp Pulse Pulse Resp BP Pulse Ox O2 Del Method 02/16/24 08:40 70 02/16/24 08:40 High Flow Nasal Cannula 02/16/24 08:27 90 High Flow Nasal Cannula 02/16/24 08:25 68 20 86 L High Flow Nasal Cannula 02/16/24 07:59 36.8 C 67 20 152/63 H 89 L High Flow Nasal Cannula 02/16/24 04:01 64 20 93 High Flow Nasal Cannula 02/16/24 03:00 37.1 C 66 19 144/62 H 90 High Flow Nasal Cannula 02/15/24 23:15 72 20 92 High Flow Nasal Cannula, Oxyhood 02/15/24 23:09 36.6 C 66 24 130/62 93 High Flow Nasal Cannula 02/15/24 22:52 65 O2 Flow Rate FiO2 02/16/24 08:40 02/16/24 08:40 40 100 02/16/24 08:27 40 02/16/24 08:25 30 02/16/24 07:59 30 100 02/16/24 04:01 30 100 02/16/24 03:00 30 02/15/24 23:15 30 100 02/15/24 23:09 30 100 02/15/24 22:52
--- NOTE | 2024-02-16 11:36 | Cardiology Progress Note ---
Date of Service February 16, 2024 Assessment & Plan (1) Acute and chronic respiratory failure: (2) Acute on chronic heart failure with preserved ejection fraction (HFpEF): (3) Pneumonia: Plan Complex, morbidly obese 63-year-old female with untreated obstructive sleep apnea, nocturnal hypoxemia, pulmonary hypertension, Pickwickian physiology. Patient admitted with recurrent acute decompensated diastolic heart failure, HFpEF, in setting of stage III chronic kidney disease, underlying ASCVD (status post staged PCI, LAD on December 27, 2019, RCA on January 24, 2020), possible pneumonia. Breathing improving with diuresis, and right-sided thoracentesis on February 09, 2024, removal of 1000 mL serosanguineous (transudative) fluid. Recommendations: * Creatinine stable, continue furosemide 80 mg IV 4 times daily * Treatment with vancomycin 125 mg p.o. every 6 hours along with zapien syrup for C. difficile. Supportive measures employed. * Continue subcutaneous heparin for DVT prophylaxis. Admission and Anticipated Discharge Date Admission Date: February 06, 2024 Subjective Patient seen examined the bedside. Fluid balance -1150 cc. Renal function r emained stable. Denies chest pain or shortness of breath. Telemetry reveals sinus rhythm in the 60s. Review of Systems Review of Systems: All systems reviewed & are unremarkable except as noted in Subjective Physical Exam Constitutional: + ill appearing and + obese Respiratory: no respiratory distress and no labored breathing Cardiovascular: Rate/Rhythm: regular rate and regular rhythm Heart Sounds: normal S1 and normal S2; no murmur Extremities: + edema (1-2+ Bilateral lower extremity edema) Gastrointestinal (Abdomen): Inspection/Auscultation: normal bowel sounds; abdomen not distended Percussion/Palpation: abdomen soft; abdomen nontender, no guarding and abdomen not rigid Neurologic: CN's II-XI intact bilaterally and moves all extremities; no focal motor deficits Results & Data Vital Signs (Past 12 Hours) Vital Signs Temp Pulse Pulse Resp BP Pulse Ox O2 Del Method 02/16/24 11:32 36.7 C 67 18 143/67 H 91 High Flow Nasal Cannula 02/16/24 11:11 68 27 H 91 High Flow Nasal Cannula 02/16/24 08:40 70 02/16/24 08:40 High Flow Nasal Cannula 02/16/24 08:27 90 High Flow Nasal Cannula 02/16/24 08:25 68 20 86 L High Flow Nasal Cannula 02/16/24 07:59 36.8 C 67 20 152/63 H 89 L High Flow Nasal Cannula 02/16/24 04:01 64 20 93 High Flow Nasal Cannula 02/16/24 03:00 37.1 C 66 19 144/62 H 90 High Flow Nasal Cannula O2 Flow Rate FiO2 02/16/24 11:32 40 100 02/16/24 11:11 40 100 02/16/24 08:40 02/16/24 08:40 40 100 02/16/24 08:27 40 100 02/16/24 08:25 30 100 02/16/24 07:59 30 100 02/16/24 04:01 30 100 02/16/24 03:00 30 100 Laboratory Results CBC 02/16/24 Range/Units 06:27 WBC 11.56 H (4.8-10.8) K/ul RBC 3.53 L (4.20-5.40) M/uL Hgb 9.0 L (12.0-16.0) g/dl Hct 28.7 L (37.0-47.0) % Plt Count 223 (130-400) K/uL Neut # (Auto) 9.29 H (1.40-6.50) K/uL Lymph # (Auto) 0.94 L (1.20-3.40) K/uL [place] # (Auto) 0.89 H (0.11-0.59) K/uL Eos # (Auto) 0.23 (0.00-0.50) K/uL Baso # (Auto) 0.09 (0.00-0.20) K/uL Comprehensive Metabolic Panel 02/16/24 Range/Units 06:27 Sodium 134 L (136-145) mmol/L Potassium 4.5 (3.5-5.1) mmol/L Chloride 95 L (98-107) mmol/L Carbon Dioxide 33 H (21-32) mmol/L BUN 68 H (6-23) mg/dl Creatinine 1.93 H (0.6-1.2) mg/dl Glucose 152 H (70-99(Fasting)) mg/dl Calcium 9.4 (8.6-10.3) mg/dl Intake and Output 02/15/24 02/16/24 02/16/24 22:59 06:59 14:59 Intake Total 200 / 500 300 / 500 Output Total 450 / 1650 1200 / 1650 Balance -250 / -1150 -900 / -1150 Intake: Oral 200 / 500 300 / 500 Output: Urine Amount (Catheter) 450 / 1650 1200 / 1650 [place]/Indwelling 450 / 1650 1200 / 1650 Other: Weight 108.1 kg Weight Measurement Method Built in [facility]
--- NOTE | 2024-02-16 16:44 | Communication Note ---
Date of Service: February 16, 2024 Brief [facility] req call back for son Thank you for allowing us to participate in the ongoing care of this patient. Please page with any additional concerns. Promise Huerta DNP Director, Palliative Medicine
--- NOTE | 2024-02-17 09:00 | XRay Report ---
XR chest 1V portable CLINICAL HISTORY: sob, saturation dropping TECHNIQUE: Single frontal radiograph of the chest was obtained. Comparison: Comparison is made to chest radiograph 02/15/2024 FINDINGS: No lines and tubes are seen. Cardiomegaly is noted. Bilateral lower lung predominant airspace opaciti es are seen. Small right pleural effusion. IMPRESSION: 1. Bilateral lower lung predominant airspace opacities which may represent atelectasis, pneumonia, a nd/or aspiration. 2. Small right pleural effusion. ACT 112: Negative or not required by law. Electronically signed by: Stephane Leyva M.D. 02/17/2024 8:58 AM
[2024-02-17] MEDS ORDERED: LORazepam 0.5 MG TAB PO PRN (09:07)
[2024-02-17] MEDS: LORazepam 0.5 MG TAB PO PRN (09:37)
[2024-02-17 10:11] LABS: Hematocrit (blood only) 31.3 % (37.0-47.0); Hemoglobin 9.7 g/dl (12.0-16.0); Mean Corpuscular Hemoglobin 24.9 pg (25.0-34.0); Mean Corpuscular Volume 80.5 fL (80.0-100.0); Mean Platelet Volume 9.5 fL (9.4-12.4); Platelet Count 246 K/uL (130-400); RDW Coefficient of Variation 14.8 % (11.5-14.5); RDW Standard Deviation 43.3 fL (36.4-46.3); Red Blood Count 3.89 M/uL (4.20-5.40)
[2024-02-17 10:27] LABS: BUN Creatinine Ratio 38.1 (10-20); Calcium 9.8 mg/dl (8.6-10.3); Creatinine Clr Calc Pharmacy 32.7 ml/min; Est GFR (African American) 30.7 ml/min; Est GFR (Non-African American) 26.5 ml/min; Magnesium 2.1 mg/dl (1.7-2.4); Phosphorus 3.1 mg/dl (2.5-4.9); Potassium 4.6 mmol/L (3.5-5.1)
--- NOTE | 2024-02-17 13:23 | Cardiology Progress Note ---
Date of Service February 17, 2024 Assessment & Plan (1) Acute and chronic respiratory failure: (2) Acute on chronic heart failure with preserved ejection fraction (HFpEF): (3) Pneumonia: (4) Hyponatremia: (5) Acute kidney injury superimposed on chronic kidney disease: Plan Complex, morbidly obese 63-year-old female with untreated obstructive sleep apnea, nocturnal hypoxemia, pulmonary hypertension, Pickwickian physiology. Patient admitted with recurrent acute decompensated diastolic heart failure, HFpEF, in setting of stage III chronic kidney disease, underlying ASCVD (status post staged PCI, LAD on December 27, 2019, RCA on January 24, 2020), possible pneumonia. Mildly improved with ongoing mild diuresis S/p right-sided thoracentesis on February 09, 2024, removal of 1000 mL serosanguineous (transudative) fluid. Recommendations: * Creatinine stable, continue furosemide 80 mg IV 4 times daily with potassium supplementation. * Restart PO hydralazine to improve BP control. * Monitor fluid balance, daily weight, GFR, and electrolytes. * Treatment with vancomycin 125 mg p.o. every 6 hours along with zapien syrup for C. difficile. Supportive measures employed. * Continue subcutaneous heparin for DVT prophylaxis. * Palliative care consultation appreciated. Admission and Anticipated Discharge Date Admission Date: February 06, 2024 Subjective 63-year-old female seen and examined at the bedside. Fluid balance -1.3 L. Renal function unchanged. Hydralazine placed on hold due to transient hypotension. Blood pressure elevated this afternoon. Remains on high flow nasal cannula oxygen. Review of Systems Review of Systems: All systems reviewed & are unremarkable except as noted in Subjective Physical Exam Constitutional: + ill appearing and + obese Respiratory: no respiratory distress and no labored breathing Cardiovascular: Rate/Rhythm: regular rate and regular rhythm Heart Sounds: normal S1 and normal S2; no murmur Extremities: + edema (1-2+ Bilateral lower extremity edema) Gastrointestinal (Abdomen): Inspection/Auscultation: normal bowel sounds; abdomen not distended Percussion/Palpation: abdomen soft; abdomen nontender, no guarding and abdomen not rigid Neurologic: CN's II-XI intact bilaterally and moves all extremities; no focal motor deficits Results & Data Vital Signs (Past 12 Hours) Vital Signs Temp Pulse Pulse Pulse Resp BP Pulse Ox 02/17/24 10:47 67 19 90 09/04/24 08:48 72 24 60 L 02/17/24 08:47 71 24 90 02/17/24 08:23 37.2 C 69 22 161/63 H 90 02/17/24 07:58 68 02/17/24 07:58 02/17/24 07:05 67 25 H 88 L 02/17/24 03:41 36.7 C 66 27 H 152/81 H 89 L 02/17/24 03:23 69 25 H 88 L O2 Del Method O2 Flow Rate FiO2 02/17/24 10:47 High Flow Nasal Cannula 60 100 02/17/24 08:48 High Flow Nasal Cannula 60 100 02/17/24 08:47 High Flow Nasal Cannula 60 100 02/17/24 08:23 High Flow Nasal Cannula 40 100 02/17/24 07:58 02/17/24 07:58 High Flow Nasal Cannula 40 100 02/17/24 07:05 High Flow Nasal Cannula 40 100 02/17/24 03:41 High Flow Nasal Cannula 40 100 02/17/24 03:23 High Flow Nasal Cannula 40 100 Laboratory Results CBC 02/17/24 Range/Units 09:51 WBC 11.20 H (4.8-10.8) K/ul RBC 3.89 L (4.20-5.40) M/uL Hgb 9.7 L (12.0-16.0) g/dl Hct 31.3 L (37.0-47.0) % Plt Count 246 (130-400) K/uL Comprehensive Metabolic Panel 02/17/24 Range/Units 09:51 Sodium 132 L (136-145) mmol/L Potassium 4.6 (3.5-5.1) mmol/L Chloride 93 L (98-107) mmol/L Carbon Dioxide 34 H (21-32) mmol/L BUN 74 H (6-23) mg/dl Creatinine 1.94 H (0.6-1.2) mg/dl Glucose 240 H (70-99(Fasting)) mg/dl Calcium 9.8 (8.6-10.3) mg/dl Intake and Output 02/16/24 02/17/24 02/17/24 22:59 06:59 14:59 Intake Total 270 / 510 Output Total 1500 / 1900 Balance -1230 / -1390 Intake: Oral 270 / 510 Output: Urine Amount (Catheter) 1500 / 1900 [place]/Indwelling 1499 Other: Weight 107.5 kg Weight Measurement Method Built in [facility] (1) Acute and chronic respiratory failure Respiratory failure complication: hypoxia Qualified Code(s): J96.21 - Acute and chronic respiratory failure with hypoxia
--- NOTE | 2024-02-17 14:00 | Palliative Care Progress Note ---
Date of Service February 17, 2024 Assessment & Plan (1) Dyspnea and respiratory abnormalities: (2) Weakness generalized: (3) Palliative care by specialist: (4) Advanced care planning/counseling discussion: Plan: 20min ACP face to face with pt at bedside: Maricel is hopeful to be able to return home. She is interested in hospice at home but notes she lives with her son and dtr in law so they need to be in agreement for hospice coming to their home. Maricel states her son told her that he had looked into hospice before but was told she makes too much money to be eligible. We reviewed the hospice benefit in detail. I have left a message for her son last night and am awaiting his return call. Patient aware. She remains firm that she wants home care options d/w son before making any formal decision. She does NOT want a comfort care plan right now but states if she acutely worsens/EOL is nearing then she would want comfort and relief of suffering. Plan As above Awaiting return call from son per pt preference Thank you for allowing us to participate in the ongoing care of this patient. Please page with any additional concerns. Promise Huerta DNP Director, Palliative Medicine Admission and Anticipated Discharge Date Admission Date: February 06, 2024 Subjective Maricel is tired today, resting in bed Does not wish to have a prolonged discussion tells me she is feeling weaker, breathing no change and appetite diminished. overall tired and work of breathing is exhausting her. wanting to nap/rest most of the time. wants to know if she can go home I advised her i have called her son but am waiting for him to return my call Review of Systems Review of Systems: All systems reviewed & are unremarkable except as noted in Subjective Physical Exam Constitutional: + acute distress, + ill appearing, + thi n, + physical limitations, + frail appearing and cooperative Eyes: + anicteric sclerae, PERRL and EOM intac t bilaterally ENMT: external ear and nose normal, oropharynx normal dentition fair Neck: trachea midline, no thyromegaly Respiratory: + respiratory distress, + labored breath ing, + uses accessory muscles, + cough, + tachypneic, + pursed lip breathing and symmetric chest movement; + not able to speak in complete sentence Cardiovascular: irreg irreg, loud S2, Mild JVD tachy Gastrointestinal (Abdomen): normal bowel sounds, soft, nontender, no hepatosplenomegaly Musculoskeletal: gen weakness Skin: + turgor decreased, + skin tightening, + skin atrophy, + dry skin, + pallor and + hair thinning Neurologic: PERRL, EOMI, accommodation nl, no face palsy, no dysarthria Psychiatric: Affect: + depressed affect and + anxious affect Mood: + depressed mood Cognition: recent memory grossly intact, remote memory grossly intact, attention grossly intact and language grossly intact Estimated Intelligence: consistent with education level Insight: excellent insight Judgment: good judgement Results & Data Vital Signs (Past 12 Hours) Vital Signs Temp Pulse Pulse Pulse Resp BP Pulse Ox 02/17/24 11:25 36.9 C 70 22 158/74 H 92 02/17/24 10:47 67 19 90 02/17/24 08:48 72 24 60 L 02/17/24 08:47 71 24 90 02/17/24 08:23 37.2 C 69 22 161/63 H 90 02/17/24 07:58 68 02/17/24 07:58 02/17/24 07:05 67 25 H 88 L 02/17/24 03:41 36.7 C 66 27 H 152/81 H 89 L 02/17/24 03:23 69 25 H 88 L O2 Del Method O2 Flow Rate FiO2 02/17/24 11:25 High Flow Nasal Cannula 40 100 02/17/24 10:47 High Flow Nasal Cannula 60 100 02/17/24 08:48 High Flow Nasal Cannula 60 100 02/17/24 08:47 High Flow Nasal Cannula 60 100 02/17/24 08:23 High Flow Nasal Cannula 40 100 02/17/24 07:58 02/17/24 07:58 High Flow Nasal Cannula 40 100 02/17/24 07:05 High Flow Nasal Cannula 40 100 02/17/24 03:41 High Flow Nasal Cannula 40 100 02/17/24 03:23 High Flow Nasal Cannula 40 100 Laboratory Results Abnormal lab results 02/16/24 02/16/24 02/17/24 Range/Units 16:18 20:15 07:26 WBC (4.8-10.8) K/ul RBC (4.20-5.40) M/uL Hgb (12.0-16.0) g/dl Hct (37.0-47.0) % MCH (25.0-34.0) pg MCHC (32.0-36.0) g/dL RDW Coeff of Sven (11.5-14.5) % Sodium (136-145) mmol/L Chloride (98-107) mmol/L Carbon Dioxide (21-32) mmol/L BUN (6-23) mg/dl Creatinine (0.6-1.2) mg/dl BUN/Creatinine Ratio (10-20) Glucose (70-99(Fasting)) mg/dl POC Glucose 130 H 182 H 167 H (70-99) mg/dl 02/17/24 02/17/24 Range/Units 09:51 11:19 WBC 11.20 H (4.8-10.8) K/ul RBC 3.89 L (4.20-5.40) M/uL Hgb 9.7 L (12.0-16.0) g/dl Hct 31.3 L (37.0-47.0) % MCH 24.9 L (25.0-34.0) pg MCHC 31.0 L (32.0-36.0) g/dL RDW Coeff of Sven 14.8 H (11.5-14.5) % Sodium 132 L (136-145) mmol/L Chloride 93 L (98-107) mmol/L Carbon Dioxide 34 H (21-32) mmol/L BUN 74 H (6-23) mg/dl Creatinine 1.94 H (0.6-1.2) mg/dl BUN/Creatinine Ratio 38.1 H (10-20) Glucose 240 H (70-99(Fasting)) mg/dl POC Glucose 124 H (70-99) mg/dl Diagnostic Findings Chest CT 02/06/24 16:50 CT SCAN OF THE CHEST WITHOUT IV CONTRAST CLINICAL HISTORY: Pneumonia. Pleural effusion. COMPARISON STUDY: Chest x-ray dated 02/06/2024. Chest CT dated 09/25/2023. TECHNIQUE: CT scan of the thorax was performed from the thoracic inlet to the upper abdomen. Images are reviewed in the axial, sagittal, and coronal planes. IV contrast was not administered for this examination as per the referring clinician. A dose lowering technique was utilized adhering to the principles of ALARA. CT DOSE: 982.41 mGy.cm FINDINGS: Thyroid: Imaged portions of the thyroid gland are normal in size and attenuation. Thoracic aorta: There is moderate atherosclerotic calcification of the thoracic aorta, which is normal in caliber and demonstrates standard 3-vessel arch anatomy. Heart: The heart is enlarged and without pericardial effusion. The coronary arteries are densely calcified. There is diminished attenuation of the cardiac blood pool is compared to the myocardium suggesting anemia. The pulmonary trunk is dilated, measuring 4.0 cm in diameter. This suggests pulmonary artery hypertension. Lungs and pleural spaces: Intralobular septal thickening is seen throughout both lungs. There are moderate pleural effusions with dependent consolidation, right larger than left. The trachea and central airways are clear. Mediastinum: Mildly enlarged mediastinal lymph nodes measure up to 13 mm in short axis. These are similar to previous. Jana: Not well assessed without IV contrast. Axillae: There is no axillary lymphadenopathy. Upper abdomen: The liver is cirrhotic in morphology and heterogeneous attenuation. There is nodularity of the hepatic surface contour. There is a small volume of perihepatic ascites. Skeletal structures: The skeletal structures are osteopenic. No lytic or blastic bony lesions are seen. Degenerative change is noted in the shoulders and spine. IMPRESSION: 1. Cardiomegaly with evidence of congestive failure and pulmonary edema. Radiographic follow-up to resolution is recommended. 2. Right larger than left pleural effusions with dependent consolidation. 3. Mildly enlarged mediastinal lymph nodes are nonspecific and unchanged from previous. 4. Cirrhotic liver morphology and small volume perihepatic ascites. 5. Additional findings as above. ACT 112: Negative or not required by law. Electronically signed by: Tomi Miller M.D. 02/06/2024 8:03 PM Venous Doppler Study 02/09/24 09:12 BILATERAL LOWER EXTREMITY VENOUS DOPPLER CLINICAL HISTORY: Shortness of breath. Evaluate for deep venous thrombus. COMPARISON STUDY: No previous studies for comparison. TECHNIQUE: Sonography of the deep venous system of the bilateral lower extremities was performed. Compression and augmentation were evaluated. FINDINGS: This exam was compromised due to suboptimal penetration. The bilateral common femoral, superficial femoral and popliteal veins were compressible. Augmentation was normal. Flow was shown within the deep calf vessels. IMPRESSION: Exam compromised due to suboptimal penetration but no evidence of deep venous thrombus within the bilateral lower extremities. ACT 112: Negative or not required by law. Electronically signed by: Bruce Cai M.D. 02/09/2024 11:16 AM Pulmonary Perfusion Imaging 02/10/24 09:59 NM pul perfusion CLINICAL HISTORY: Pulmonary hypertension. Respiratory failure. Evaluate for perfusion defect. COMPARISON STUDY: Chest CT February 06, 2024. Chest radiograph performed earlier today. TECHNIQUE: Nuclear medicine perfusion study was performed following intravenous injection of 4.5 mCi of technetium 99m MAA. Imaging of the chest was performed in multiple projections. No ventilation imaging was performed given ventilation precautions. FINDINGS: There is mildly heterogeneous perfusion to both lungs. However, no segmental defects are identified to strongly suggest pulmonary embolus. Exam is compromised from a technical standpoint given lack of ventilation imaging. No areas of abnormal radiotracer uptake are identified. This study is considered low probability for pulmonary embolus. IMPRESSION: Technically compromised exam, as described above. However, study considered low probability for pulmonary embolus. ACT 112: Negative or not required by law. Electronically signed by: Bruce Cai M.D. 02/10/2024 2:26 PM Chest X-Ray 02/17/24 08:21 XR chest 1V portable CLINICAL HISTORY: sob, saturation dropping TECHNIQUE: Single frontal radiograph of the chest was obtained. Comparison: Comparison is made to chest radiograph 02/15/2024 FINDINGS: No lines and tubes are seen. Cardiomegaly is noted. Bilateral lower lung predominant airspace opacities are seen. Small right pleural effusion. IMPRESSION: 1. Bilateral lower lung predominant airspace opacities which may represent atelectasis, pneumonia, and/or aspiration. 2. Small right pleural effusion. ACT 112: Negative or not required by law. Electronically signed by: Stephane Leyva M.D. 02/17/2024 8:58 AM PG Care Time/CCT Total # of Minutes Spent Total Time Spent with Patient: Total time spent is greater than 50% in coordination of care (as documented) at patient's floor/unit and/or counseling patient: I spent 75 minutes overall addressing this case: 10 min in medical data review/discussion with referring provider(s) and/or preparation for the visit 15 min in direct interaction with the patient/exam 20 min in Advance Care Planning/Goals of Care discussions as detailed above in note (must be >16min) 15 min in subsequent review and synthesis of assessment and plan 15 min communicating with other providers regarding the patient's case: Advanced Care Planning [id number] Advanced Care Planning 30 [place] [address] SUB INP/OBS CARE 3/50MIN (25 - SIGNIFICANT, SEPARATELY IDENTIFIABLE ) Patient Type Established Medical Decision Making High Complexity Diagnoses Dyspnea and respiratory abnormalities R06.00; R06.89 Weakness generalized R53.1 Palliative care by specialist Z51.5 Advanced care planning/counseling discussion Z71.89 Additional Codes Advanced Care Planning - 43183 Advanced Care Planning 30 Min: 41790 Advanced Care Planning 30 Min ([id number])
--- NOTE | 2024-02-17 14:24 | Hospitalist Progress Note ---
Date of Service February 17, 2024 Assessment & Plan (1) Acute and chronic respiratory failure: (2) Pneumonia: (3) Pulmonary hypertension: (4) (HFpEF) heart failure with preserved ejection fraction: (5) Acute kidney injury superimposed on chronic kidney disease: (6) Hypothyroidism: (7) CAD (coronary artery disease): (8) Hypertension: Plan 63-year-old female who has a significant past medical history of insulin- dependent T2DM, chronic hypoxic respiratory failure in 2-4L NC O2 at baseline, RADHA on nocturnal oxygen, pulmonary hypertension, morbid obesity, HFpEF, history of CVA, HTN, HLD, CKD and depression with anxiety who presents to ED secondary to progressive SOB since 1 day ago 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 She is being managed for the following: Acute on chronic hypoxic respiratory failure Bilateral pleural effusion s/p right sided thoracentesis on 02/08 Possible Bilateral PNA Patient presented with shortness of breath; spo2 was 78% in RA. Afebrile, no leukocytosis, BNP 142, procal within normal range, respiratory viral panel negative CXR with cardiomegaly without evidence of congestive failure, presence of airspace consolidation in the mid to lower lungs bilaterally with small pleural effusions MRSA screen negative CT chest on admission suggestive of significant pulmonary edema. Venous duplexnegative for DVT Pulmonary perfusion scan -low probability of PE Cardiology and pulmonary service consulted Cardio on board, managing diuresis. Currently on lasix 80 mg iv QID w/ KCL supplementation. Pulm evaled, s/p right thoracentesis, Pleural fluid analysis suggestive of transudative pattern; likely secondary to HFpEF. Completed antibiotics for possible pneumonia (completed course on 02/11/2024) Palliative on board. C. difficile infection: Patient reported loose stool;. C. difficile positive on 02/11. c/w oral vancomycin; plan to treat for 10 days Acute on chronic HFpEF: 2D echo from Jul 2023 with EF 60-65%, grade 1 diastolic dysfunction, left atrium moderately dilated, mild to moderate MR and elevated RVSP at 40 to 50 mmHg. management per above; currently on lasix CKD stage III: Cr seems to range from 1.2-1-5 as an outpatient and 1.5-2 per hospital records . Creatinine within baseline range Hx Lung nodules /Subcarinal Lymphadenopathy: Follows with pulmonary DM II: Last A1c 8.1 on 12/29/23. Hold home agents. SSI while in hospital. CAD with hx of Stent/HLD : Continue home aspirin, statin, Metoprolol Hypertension: Continue Toprol, amlodipine, hydralazine. History of CVA MRI brain 08/08 revealed small acute infarcts in bilateral occipital lobe concerning for embolic infarcts Per previous notes, no anticoagulation recommended given significant fall risk and vision issues unless clear arrhythmias confirmed RADHA, untreated, cpap noncompliant Pulmonary hypertension Continue sildenafil TID Possible that RADHA is contributing, but patient reports difficulty tolerating cpap mask and refusing BPAP. Depression with anxiety: Continue Lexapro Morbid Obesity, : Continue to encourage diet and lifestyle modifications DVT Ppx: SQ heparin Code status: DNR/DNI PCP: Vimal Dispo: pending. Continues to be hospitalized for acute hypoxic respiratory failure requiring high flow nasal cannula, acute on chronic diastolic heart failure. PT/OT eval ordered. plan to wean off oxygen as tolerated. Goals of care- Per prior attending - I updated patient's daughter over the phone 02/15/2024. She acknowledged that patient is having a difficult year with multiple hospitalization. We discussed that patient does not want aggressive interventions; patient refused BiPAP today. Plan is to see how patient does in next few days. If her respiratory status continues to decompensate; comfort measures to be initiated. Palliative on board to continue ongoing goals of care discussion. Palliative had family meeting 02/16: both pt and Tomi (son) agree if she worsens acutely/cannot wean off high flow, they would like a transition to comfort care. Please note the above document was generated using voice recognition software. It may contain grammatical, syntax or spelling errors. Any formal questions or concerns about the content, text or information contained within the body of this dictation should be directly addressed to the provider for clarification Admission and Anticipated Discharge Date Admission Date: February 06, 2024 Subjective Patient was seen and examined at bedside. Patient continues to require high flow nasal cannula. Was not maintaining adequate saturation on 40 L oxygen in the morning, increase up to 60 L. Patient declined BiPAP, later on decided that she would use BiPAP if given Ativan, but did not feel comfortable to use BiPAP. Patient reports feeling tired and weak today. Reports eating and moving bowels okay. Physical Exam Physical Exam: General- oriented x 3, speaks in sentences but gets tired easily. Eyes- anicteric Lungs- Decreased breath sound at bases. crackles +nt Heart- normal rate, regular rhythm; no murmurs Abdomen- normal bowel sounds, nondistended, soft, nontender Extremities-grade 1-2 lower extremity edema, no calf tenderness Neuro- alert, oriented x 3; no gross focal neurologic deficits Skin- warm & dry Results & Data Results & Data Vital Signs (Past 12 Hours) Vital Signs Temp Pulse Pulse Pulse Resp BP Pulse Ox 02/17/24 11:25 36.9 C 70 22 158/74 H 92 02/17/24 10:47 67 19 90 02/17/24 08:48 72 24 60 L 02/17/24 08:47 71 24 90 02/17/24 08:23 37.2 C 69 22 161/63 H 90 02/17/24 07:58 68 02/17/24 07:58 02/17/24 07:05 67 25 H 88 L 02/17/24 03:41 36.7 C 66 27 H 152/81 H 89 L 02/17/24 03:23 69 25 H 88 L O2 Del Method O2 Flow Rate FiO2 02/17/24 11:25 High Flow Nasal Cannula 40 100 02/17/24 10:47 High Flow Nasal Cannula 60 100 02/17/24 08:48 High Flow Nasal Cannula 60 100 02/17/24 08:47 High Flow Nasal Cannula 60 100 02/17/24 08:23 High Flow Nasal Cannula 40 100 02/17/24 07:58 02/17/24 07:58 High Flow Nasal Cannula 40 100 02/17/24 07:05 High Flow Nasal Cannula 40 100 02/17/24 03:41 High Flow Nasal Cannula 40 100 02/17/24 03:23 High Flow Nasal Cannula 40 100 (1) Acute and chronic respiratory failure Respiratory failure complication: hypoxia Qualified Code(s): J96.21 - Acute and chronic respiratory failure with hypoxia
--- NOTE | 2024-02-17 14:32 | Palliative Family Discussion ---
Date of Service February 17, 2024 Patient Directed Conference Time of Meetin-220pm Participants: Carline Grissom Luisasergio CARLO Patient participation: no, she deferred to son Tomi Rao Patient Support System: Son< Tomi Rao Other Healthcare Provider Participation: None Meeting Location: telephonic with Tomi, earlier today I met with pt at bedside/see my progress note Advanced Directive available: Maricel and Tomi reaffirm DNR/DNI The patient's surrogate medical decision maker participated: yes, Tomi Rao/son and POA This telephonic ACP meeting was held with Tomi for approx 30 min, for determining the appropriate course of treatment. Topics of Discussion Topics of Discussion: 1. Tomi and I discussed her medical issues, progressive decline and weakness. i shared with him details of my visits with Maricel yesterday and earlier this morning. Tomi shares that she has been expressing more worries about being a burden but needing more help and had asked to look into hospice homes. We spoke about hospice services and I advised options would be GIP vs SNF comfort care vs home hospice as there are no IP hospice homes in [facility]. 2. We spoke about her increasing symptom burden and HFNC dependency, that HFNC cannot be provided in residential settings. Maricel has been clear she would not want to be sustained on HFNC and would prefer to focus on comfort if she is not improving or HFNC cannot be weaned down. Toim is in agreement and notes he has additional family including a brother to notify who will likely want to come visit. 3. We discussed HFNC de escalation and my protocol for it is outlined below, in this note. 4. Both patient and Tomi agree if she worsens acutely/cannot wean off high flow, they would like a transition to comfort care. He and his will be coming in later to speak further with pt; they are calling additional family now. Other Content of Meetin. Opportunity given for participants to speak and ask questions. 2. Participants were assured of attention to patient comfort. 3. Reassurance provided. 4. Support was provided for informed, good-clarisa decisions. 5. Emotions expressed by family were acknowledged and addressed. 6. I have added PRN meds for symptom mgt in case she acutely declines. I will be in OP clinic tomorrow and then leaving on vacation thru 02/25. I will be reachable via [employer] but after tomorrow mid day will not have EMR access for a few days. 7. Plan of Care: HFNC De escalation protocol if needed: HFNC De-escalation Recommended Protocol: * Provider, RN, and RT discuss plan * engage additional MDT as needed: social work, outpatient clerk, etc. * Stop monitors, ensure working IV * Pre-wean medications: Begin hydromorphone infusion, prn dose and Lorazepam 1mg IV * Consider Hydromorphone 0.5-1mg per hour infusion * Consider Hydromorphone 1mg IV Q10min prn air hunger * Four Down Titrations: Approximately 25% Reduction every 10 minutes (reduce FiO2 and liter flow) - Medicate - Wait for 10 min for peak effect, decrease liter flow and FiO2 by 25% followed by immediate repeat bolusing - Wait 10 min then decrease liter flow and FiO2 by 25%, followed by immediate repeat bolusing - Give another Lorazepam 1mg IV bolus - Wait another 10 min then decrease liter flow and FiO2 by 25% followed by immediate repeat bolusing - Wait another 10 min then decrease liter flow and FiO2 by the final 25% fol lowed by immediate repeat bolusing - Give another 1mg Lorazepam 1mg IV if needed * Observe for and treat symptoms * Provide anticipatory guidance Nursing, primary team, cardiology, RT, care mgt notified. TS 30min in ACP telephonic 20min ACP earlier this morning with pt/.charted in progress note Thank you for allowing us to participate in the ongoing care of this patient. Please page with any additional concerns. Promise Huerta DNP Director, Palliative Medicine
[2024-02-17] MEDS ORDERED: HYDROmorphone INJ 0.5 MG/0.5 ML SYR IV PRN ×2 (14:33)
[2024-02-18] MEDS: FUROSEMIDE 40 MG/4 ML VIAL IV ONE (05:26)
[2024-02-18 06:36] LABS: Hematocrit (blood only) 32.8 % (37.0-47.0); Hemoglobin 10.4 g/dl (12.0-16.0); Mean Corpuscular Hemoglobin 25.6 pg (25.0-34.0); Mean Corpuscular Hgb Conc 31.7 g/dL (32.0-36.0); Mean Corpuscular Volume 80.6 fL (80.0-100.0); Mean Platelet Volume 8.9 fL (9.4-12.4); Platelet Count 247 K/uL (130-400); RDW Coefficient of Variation 14.9 % (11.5-14.5); RDW Standard Deviation 43.5 fL (36.4-46.3); Red Blood Count 4.07 M/uL (4.20-5.40); White Blood Count 12.52 K/ul (4.8-10.8)
[2024-02-18 07:21] LABS: BUN Creatinine Ratio 43.5 (10-20); Creatinine Clr Calc Pharmacy 35.6 ml/min; Est GFR (African American) 34.3 ml/min; Est GFR (Non-African American) 29.6 ml/min; Magnesium 2.2 mg/dl (1.7-2.4); Phosphorus 4.2 mg/dl (2.5-4.9)
--- NOTE | 2024-02-18 11:42 | Cardiology Progress Note ---
Date of Service February 18, 2024 Assessment & Plan (1) Acute and chronic respiratory failure: (2) Acute on chronic heart failure with preserved ejection fraction (HFpEF): (3) Pneumonia: (4) Hyponatremia: (5) Acute kidney injury superimposed on chronic kidney disease: Plan Complex, morbidly obese 63-year-old female with untreated obstructive sleep apnea, nocturnal hypoxemia, pulmonary hypertension, Pickwickian physiology. Patient admitted with recurrent acute decompensated diastolic heart failure, HFpEF, in setting of stage III chronic kidney disease, underlying ASCVD (status post staged PCI, LAD on December 27, 2019, RCA on January 24, 2020), possible pneumonia. Clinically unchanged despite 30 pound diuresis during hospitalization. S/p right-sided thoracentesis on February 09, 2024, removal of 1000 mL serosanguineous (transudative) fluid. Recommendations: * Creatinine stable, continue furosemide 80 mg IV 4 times daily with potassium supplementation. * Continue current antihypertensive medication regimen. * Monitor fluid balance, daily weight, GFR, and electrolytes. * Continue subcutaneous heparin for DVT prophylaxis. * Poor prognosis. * Palliative care consultation appreciated. Admission and Anticipated Discharge Date Admission Date: February 06, 2024 Subjective 63-year-old female seen and examined at the bedside. Dyspnea/hypoxia unchanged. Additional 1.5 L diuresis noted overnight. Weight is down approximately 30 pounds since admission. Denies chest pain. Telemetry reveals sinus rhythm in the 60s and 70s. Patient considering transition to palliative/hospice care. Review of Systems Review of Systems: All systems reviewed & are unremarkable except as noted in Subjective Physical Exam Constitutional: + ill appearing and + obese Respiratory: + labored breathing Auscultation: + d iminished lung sounds (Bases bilateral) and + wheezes Cardiovascular: Rate/Rhythm: regular rate and regular rhythm Heart Sounds: normal S1 and normal S2; no murmur Extremities: + edema (1+ Bilateral lower extremity edema) Gastrointestinal (Abdomen): Inspection/Auscultation: normal bowel sounds; abdomen not distended Percussion/Palpation: abdomen soft; abdomen nontender, no guarding and abdomen not rigid Neurologic: CN's II-XI intact bilaterally and moves all extremities; no focal motor deficits Results & Data Vital Signs (Past 12 Hours) Vital Signs Temp Pulse Pulse Pulse Resp BP Pulse Ox 02/18/24 11:16 71 25 H 88 L 02/18/24 08:00 36.9 C 77 20 151/79 H 90 02/18/24 07:35 70 02/18/24 07:26 66 29 H 87 L 02/18/24 03:23 70 26 H 85 L 02/18/24 03:12 37.0 C 71 22 149/63 H 85 L 02/18/24 01:00 70 88 L O2 Del Method O2 Flow Rate FiO2 02/18/24 11:16 High Flow Nasal Cannula 60 100 02/18/24 08:00 High Flow Nasal Cannula 60 100 02/18/24 07:35 02/18/24 07:26 High Flow Nasal Cannula 60 100 02/18/24 03:23 High Flow Nasal Cannula 60 100 02/18/24 03:12 High Flow Nasal Cannula 02/18/24 01:00 High Flow Nasal Cannula 60 100 Laboratory Results CBC 02/18/24 Range/Units 06:13 WBC 12.52 H (4.8-10.8) K/ul RBC 4.07 L (4.20-5.40) M/uL Hgb 10.4 L (12.0-16.0) g/dl Hct 32.8 L (37.0-47.0) % Plt Count 247 (130-400) K/uL Comprehensive Metabolic Panel 02/18/24 Range/Units 06:13 Sodium 134 L (136-145) mmol/L Potassium 5.0 (3.5-5.1) mmol/L Chloride 94 L (98-107) mmol/L Carbon Dioxide 34 H (21-32) mmol/L BUN 77 H (6-23) mg/dl Creatinine 1.77 H (0.6-1.2) mg/dl Glucose 180 H (70-99(Fasting)) mg/dl Calcium 10.0 (8.6-10.3) mg/dl Intake and Output 02/17/24 02/18/24 02/18/24 22:59 06:59 14:59 Intake Total 200 / 400 Output Total 1949 Balance -450 / -1550 -300 / -1550 Intake: Oral 200 / 400 Output: Urine Amount (Catheter) 1949 [place]/Indwelling 1949 Other: Weight 106 kg Weight Measurement Method Built in [facility] (1) Acute and chronic respiratory failure Respiratory failure complication: hypoxia Qualified Code(s): J96.21 - Acute and chronic respiratory failure with hypoxia
--- NOTE | 2024-02-18 13:12 | Hospitalist Progress Note ---
Date of Service February 18, 2024 Assessment & Plan (1) Acute and chronic respiratory failure: (2) Pneumonia: (3) Pulmonary hypertension: (4) (HFpEF) heart failure with preserved ejection fraction: (5) Acute kidney injury superimposed on chronic kidney disease: (6) Hypothyroidism: (7) CAD (coronary artery disease): (8) Hypertension: Plan 63-year-old female who has a significant past medical history of insulin- dependent T2DM, chronic hypoxic respiratory failure in 2-4L NC O2 at baseline, RADHA on nocturnal oxygen, pulmonary hypertension, morbid obesity, HFpEF, history of CVA, HTN, HLD, CKD and depression with anxiety who presents to ED secondary to progressive SOB since 1 day ago [employer] and was found to have acute on chronic respiratory failure in setting of PNA. She is being managed for the following: Acute on chronic hypoxic respiratory failure Bilateral pleural effusion s/p right sided thoracentesis on 02/08 Possible Bilateral PNA Patient presented with shortness of breath; spo2 was 78% in RA. Afebrile, no leukocytosis, BNP 142, procal within normal range, respiratory viral panel negative CXR with cardiomegaly without evidence of congestive failure, presence of airspace consolidation in the mid to lower lungs bilaterally with small pleural effusions MRSA screen negative CT chest on admission suggestive of significant pulmonary edema. Venous duplexnegative for DVT Pulmonary perfusion scan -low probability of PE Cardiology and pulmonary service consulted Cardio on board, managing diuresis. Currently on lasix 80 mg iv QID w/ KCL supplementation. Decrease KCL to BID from TID, follow labs in AM. Pulm evaled, s/p right thoracentesis, Pleural fluid analysis suggestive of transudative pattern; likely secondary to HFpEF. Completed antibiotics for possible pneumonia (completed course on 02/11/2024) Palliative on board. C. difficile infection: Patient reported loose stool;. C. difficile positive on 02/11. c/w oral vancomycin; plan to treat for 10 days Acute on chronic HFpEF: 2D echo from Jul 2023 with EF 60-65%, grade 1 diastolic dysfunction, left atrium moderately dilated, mild to moderate MR and elevated RVSP at 40 to 50 mmHg. management per above; currently on lasix CKD stage III: Cr seems to range from 1.2-1-5 as an outpatient and 1.5-2 per hospital records . Creatinine within baseline range Hx Lung nodules /Subcarinal Lymphadenopathy: Follows with pulmonary DM II: Last A1c 8.1 on 12/29/23. Hold home agents. SSI while in hospital. CAD with hx of Stent/HLD : Continue home aspirin, statin, Metoprolol Hypertension: Continue Toprol, amlodipine, hydralazine. History of CVA MRI brain 08/08 revealed small acute infarcts in bilateral occipital lobe concerning for embolic infarcts Per previous notes, no anticoagulation recommended given significant fall risk and vision issues unless clear arrhythmias confirmed RADHA, untreated, cpap noncompliant Pulmonary hypertension Continue sildenafil TID Possible that RADHA is contributing, but patient reports difficulty tolerating cpap mask and refusing BPAP. Depression with anxiety: Continue Lexapro Morbid Obesity, : Continue to encourage diet and lifestyle modifications DVT Ppx: SQ heparin Code status: DNR/DNI PCP: Vimal Dispo: pending. Continues to be hospitalized for acute hypoxic respiratory failure requiring high flow nasal cannula, acute on chronic diastolic heart failure. PT/OT eval ordered. plan to wean off oxygen as tolerated. Goals of care- Per prior attending - I updated patient's daughter over the phone 02/15/2024. She acknowledged that patient is having a difficult year with multiple hospitalization. We discussed that patient does not want aggressive interventions; patient refused BiPAP today. Plan is to see how patient does in next few days. If her respiratory status continues to decompensate; comfort measures to be initiated. Palliative on board to continue ongoing goals of care discussion. Palliative had family meeting 02/16: both pt and Tomi (son) agree if she worsens acutely/cannot wean off high flow, they would like a transition to comfort care. Pt still undecided if she wants to transition to hospice/comfort care yet. She knows she is getting worse and is aware she might desaturate acutely in which case she would want comfort measures. Updated Vanesa 02/17 over the phone, answered all her questions. Please note the above document was generated using voice recognition software. It may contain grammatical, syntax or spelling errors. Any formal questions or concerns about the content, text or information contained within the body of this dictation should be directly addressed to the provider for clarification Admission and Anticipated Discharge Date Admission Date: February 06, 2024 Subjective Patient was seen and examined at bedside. Patient continues to require high flow nasal cannula. Is requiring 60 L HFNC. Patient continues to refuse BiPAP even w/ prn ativan. Patient appears tired and weak today. Reports eating little and had diarrhea resolved. Physical Exam Physical Exam: General- oriented x 3, speaks in sentences but gets tired easily. Eyes- anicteric Lungs- Decreased breath sound at bases. crackles +nt Heart- normal rate, regular rhythm; no murmurs Abdomen- normal bowel sounds, nondistended, soft, nontender Extremities-grade 1-2 lower extremity edema, no calf tenderness Neuro- alert, oriented x 3; no gross focal neurologic deficits Skin- warm & dry Results & Data Results & Data Vital Signs (Past 12 Hours) Vital Signs Temp Pulse Pulse Pulse Resp BP Pulse Ox 02/18/24 11:57 36.8 C 70 18 148/88 H 89 L 02/18/24 11:16 71 25 H 88 L 02/18/24 09:37 02/18/24 08:00 36.9 C 77 20 151/79 H 90 02/18/24 07:35 70 02/18/24 07:26 66 29 H 87 L 02/18/24 03:23 70 26 H 85 L 02/18/24 03:12 37.0 C 71 22 149/63 H 85 L O2 Del Method O2 Flow Rate FiO2 02/18/24 11:57 High Flow Nasal Cannula 60 100 02/18/24 11:16 High Flow Nasal Cannula 60 100 02/18/24 09:37 High Flow Nasal Cannula 60 100 02/18/24 08:00 High Flow Nasal Cannula 60 100 02/18/24 07:35 02/18/24 07:26 High Flow Nasal Cannula 60 100 02/18/24 03:23 High Flow Nasal Cannula 60 100 02/18/24 03:12 High Flow Nasal Cannula (1) Acute and chronic respiratory failure Respiratory failure complication: hypoxia Qualified Code(s): J96.21 - Acute and chronic respiratory failure with hypoxia
[2024-02-18] MEDS: FUROSEMIDE 40 MG/4 ML VIAL IV SCH (13:28)
[2024-02-18] MEDS: POTASSIUM CHLORIDE CRTAB 20 MEQ TABCR PO SCH (20:11)
[2024-02-19 06:28] LABS: Hematocrit (blood only) 32.2 % (37.0-47.0); Hemoglobin 9.8 g/dl (12.0-16.0); Mean Corpuscular Hemoglobin 24.6 pg (25.0-34.0); Mean Corpuscular Hgb Conc 30.4 g/dL (32.0-36.0); Mean Corpuscular Volume 80.9 fL (80.0-100.0); Mean Platelet Volume 9.2 fL (9.4-12.4); Platelet Count 261 K/uL (130-400); RDW Coefficient of Variation 14.8 % (11.5-14.5); RDW Standard Deviation 43.6 fL (36.4-46.3); Red Blood Count 3.98 M/uL (4.20-5.40); White Blood Count 14.77 K/ul (4.8-10.8)
[2024-02-19 07:00] LABS: BUN Creatinine Ratio 41.7 (10-20); Creatinine Clr Calc Pharmacy 31.8 ml/min; Est GFR (African American) 29.8 ml/min; Est GFR (Non-African American) 25.7 ml/min; Potassium 5.3 mmol/L (3.5-5.1)
[2024-02-19 07:29] VITALS: BP 163/69; RESP 22; TEMP 98.4; O2SAT 77
[2024-02-19 10:35] VITALS: PULSE 69
[2024-02-19] MEDS ORDERED: ONDANSETRON INJ 2 MG/ML 2 ML VIAL IV PRN (11:26)
[2024-02-19] MEDS ORDERED: ONDANSETRON 4 MG OD TAB SL PRN (11:26)
--- NOTE | 2024-02-19 11:44 | Hospitalist Progress Note ---
Date of Service February 19, 2024 Assessment & Plan (1) Acute and chronic respiratory failure: (2) Pneumonia: (3) Pulmonary hypertension: (4) (HFpEF) heart failure with preserved ejection fraction: (5) Acute kidney injury superimposed on chronic kidney disease: (6) Hypothyroidism: (7) CAD (coronary artery disease): (8) Hypertension: Plan 63-year-old female who has a significant past medical history of insulin- dependent T2DM, chronic hypoxic respiratory failure in 2-4L NC O2 at baseline, RADHA on nocturnal oxygen, pulmonary hypertension, morbid obesity, HFpEF, history of CVA, HTN, HLD, CKD and depression with anxiety who presents to ED secondary to progressive SOB since 1 day ago [employer] and was found to have acute on chronic respiratory failure in setting of PNA. She was being managed for the following: Acute on chronic hypoxic respiratory failure Bilateral pleural effusion s/p right sided thoracentesis on 02/08 Possible Bilateral PNA C. difficile infection: Acute on chronic HFpEF: Patient was transitioned to comfort care status on 02/19/2024 after discussion with the patient and patient's family. Patient will be transferred to medical floor, comfort care medications ordered. Communicated with RN to de-escalate oxygen requirement per palliative recommendation. Total time spent: 55 minutes. Please note the above document was generated using voice recognition software. It may contain grammatical, syntax or spelling errors. Any formal questions or concerns about the content, text or information contained within the body of t his dictation should be directly addressed to the provider for clarification Admission and Anticipated Discharge Date Admission Date: February 06, 2024 Subjective Patient was seen and examined at bedside. Patient continues to require high flow nasal cannula. Is requiring 60 L HFNC. Patient continues to refuse BiPAP even w/ prn ativan. Patient appears uncomfortable but denies shortness of breath. Discussed with the patient as her oxygen saturation has been gradually decr easing over the last few days and she has been deteriorating. Patient agreeable to transition to comfort care. Spoke with patient's son Tomi over the phone, updated him patient's wishes, he was agreeable but wanted us to wait until few hours until all the family members can visit her. Went back to the patient room and we have some of the family members already in the room, I updated them and answered all their questions. Paged by RN that family decided to proceed with comfort care measures. Comfort care medications ordered, patient transferred to medical floor. Physical Exam Physical Exam: General- oriented x 3, speaks in sentences but gets tired easily. On 60 L HFNC Eyes- anicteric Lungs- Decreased breath sound at bases. crackles +nt Heart- normal rate, regular rhythm; no murmurs Abdomen- normal bowel sounds, nondistended, soft, nontender Extremities-grade 1-2 lower extremity edema, no calf tenderness Neuro- alert, oriented x 3; no gross focal neurologic deficits Skin- warm & dry Results & Data Results & Data Vital Signs (Past 12 Hours) Vital Signs Temp Pulse Pulse Resp BP BP Pulse Ox 02/19/24 10:34 69 22 02/19/24 09:38 73 02/19/24 09:38 02/19/24 07:28 36.9 C 75 22 163/69 H 77 L 02/19/24 07:08 74 24 02/19/24 02:15 74 28 H 137/80 83 L 02/19/24 02:12 74 28 H 79 L 02/18/24 23:55 37.4 C 73 33 H 174/71 H 79 L O2 Del Method O2 Flow Rate FiO2 02/19/24 10:34 High Flow Nasal Cannula 60 100 02/19/24 09:38 02/19/24 09:38 High Flow Nasal Cannula 60 100 02/19/24 07:28 High Flow Nasal Cannula 02/19/24 07:08 High Flow Nasal Cannula 60 100 02/19/24 02:15 High Flow Nasal Cannula 60 100 02/19/24 02:12 High Flow Nasal Cannula 60 100 02/18/24 23:55 High Flow Nasal Cannula 60 100 (1) Acute and chronic respiratory failure Respiratory failure complication: hypoxia Qualified Code(s): J96.21 - Acute and chronic respiratory failure with hypoxia
[2024-02-19] MEDS: HYDROmorphone/NSS 100 MG/100 ML BAG IV SCH (11:49)
[2024-02-19] MEDS: LORazepam 2 MG/1 ML VIAL IV PRN ×2 (11:49→13:24)
[2024-02-19] MEDS: HYDROmorphone BOLUS from BAG IV PRN (12:29)
[2024-02-19] MEDS: HYOSCYAMINE SULFATE 0.125 MG TAB SL PRN (14:17)
--- NOTE | 2024-02-19 16:36 | Death Pronouncement Note ---
Date of Service February 19, 2024 Pronouncement Note Admission Date February 06, 2024 Summary cause of : Acute respiratory failure secondary to acute on chronic heart failure with preserved ejection fraction Time of : 1556 hours , 02/19/2024. Refer to DC summary for detail Additional Data Confirmation of : no pulse, no respirations, no heart sounds and pupils fixed and dilated Family: at bedside Attending physician: Chaka Gustafson MD Was code activated?: No Autopsy requested?: No
--- NOTE | 2024-02-19 16:40 | Discharge Summary ---
Date of Service February 19, 2024 Admission HPI Per Admitting Provider This is a 63-year-old female who has a significant past medical history of insulin-dependent DM II, chronic hypoxic respiratory failure in 2-4L NC O2 at baseline, RADHA on nocturnal oxygen, pulmonary hypertension, morbid obesity, HFpEF, history of CVA, HTN, HLD, CKD and depression with anxiety who presents to ED secondary to progressive SOB since yesterday. Has had productive cough for a few days. No fever or chills. Had a sore throat last week that has resolved. No CP or abdominal pain. Was noted low oxygen saturations at home despite supplemental O2 and therefore came to ED for further evaluation. Was admitted to [facility] in November for decompensated HF in setting of missed torsemide doses. State she has been compliant with all meds including diuretics, which she took this AM. Due for noontime meds. Admission Exam Per Admitting Provider GENERAL: Alert and oriented x3. NAD, on BPAP. Appears ill/frail/sick. HEENT: No pallor, no icterus. Pupils equal, round and reactive to light. Oral mucosa moist. NECK: No JVD, no neck masses. HEART: S1 and S2 heard. Regular rate and rhythm. No murmur, no gallop. RESPIRATORY SYSTEM: Normal AP diameter. No accessory muscle use. No wheezing, b/l mid crackles. bb increased breath sounds ABDOMEN: Soft, bowel sounds present, nontender, no distention. CENTRAL NERVOUS SYSTEM: No facial droop. Speech is clear. Obeys simple commands. Moves extremities. EXTREMITIES: No edema, no erythema seen. Principal Diagnosis Acute respiratory failure Acute on chronic heart failure Discharge Exam pupils fixed and dilated No heart sounds No pulse No respiratory movements Oral mucosa dry Pupillary reflex absent Discharge Data Allergies Allergy/AdvReac Type Severity Reaction Status Date / Time No Known Allergies Allergy Verified 09/24/23 20:25 Consultations 02/06/24 13:16 ED Decision to Admit Stat 02/06/24 15:04 Consult Pulmonology Routine 02/06/24 20:09 Consult Cardiology Routine 02/16/24 07:49 Consult Palliative Care Routine Ordered Studies 02/06/24 16:50 CT chest diagnostic wo con Urgent 02/09/24 09:12 US leg [US venous doppler LE BI] Urgent 02/09/24 12:12 sono, invasive monitoring [US point of care ultrasound] Urgent Hospital Course (1) Acute and chronic respiratory failure: (2) Pneumonia: (3) Pulmonary hypertension: (4) (HFpEF) heart failure with preserved ejection fraction: (5) Acute kidney injury superimposed on chronic kidney disease: (6) Hypothyroidism: (7) CAD (coronary artery disease): (8) Hypertension: Plan 63-year-old female who has a significant past medical history of insulin- dependent T2DM, chronic hypoxic respiratory failure in 2-4L NC O2 at baseline, RADHA on nocturnal oxygen, pulmonary hypertension, morbid obesity, HFpEF, history of CVA, HTN, HLD, CKD and depression with anxiety who presents to ED secondary to progressive SOB since 1 day ago [employer] and was found to have acute on chronic respiratory failure in setting of PNA. She was being managed for the following: Acute on chronic hypoxic respiratory failure Bilateral pleural effusion s/p right sided thoracentesis on 02/08 Possible Bilateral PNA C. difficile infection: Acute on chronic HFpEF: Patient was transitioned to comfort care status on 02/19/2024 after discussion with the patient and patient's family. Patient later in the day and was confirmed by bedside. Family members were at bedside and updated. Details below. Cause of : Acute respiratory failure secondary to acute on chronic heart failure with preserved ejection fraction Time of : 1556 hours , 02/19/2024. Please note the above document was generated using voice recognition software. It may contain grammatical, syntax or spelling errors. Any formal questions or concerns about the content, text or information contained within the body of this dictation should be directly addressed to the provider for clarification Home Health Attestation I certify that this patient is under my care and that I, or a physicians janitorial assistant working with me, had a face to-face encounter that meets the home health [id number] encounter requirements with this patient. The encounter with the patient was in whole, or in part, for the following medical condition, which is the primary reason for home health care (list medical condition): I certify that, based on my findings, the following services are medically necessary home health services: My clinical findings support the need for the above services because: Further, I certify that my clinical findings support that this patient is homebound (i.e. absences from home require considerable and taxing effort and are for medical reasons or buddhist services or infrequently or of short dur ation when for other reasons) because: Certification for Home Health Services: Based on the above findings, I certify that this patient is confined to the home and needs intermittent [facility] care, physical therapy and/or speech therapy or continues to need occupational therapy. The patient is under my care, and I have initiated the establishment of the plan of care. This patient will be followed by a physician who will periodically review the plan of care. Total Time Total Time Spent Total Time Spent (In Minutes): 70 Discharge Plan Discharge Items Reason For Visit: ACUTE ON CHRONIC HYPOXIC RESP FAILURE, PNA Follow-up/Referrals: Bridgette Celis MD [Primary Care Provider] - Medications and DC Order Prescriptions: No Action metoprolol succinate 100 mg Tablet Extended Release 24 Hr 100 mg PO QAM amlodipine 10 mg Tablet 10 mg PO DAILY hydralazine 100 mg Tablet 100 mg PO TID escitalopram oxalate 20 mg Tablet 20 mg PO DAILY sildenafil (pulm.hypertension) 20 mg Tablet 20 mg PO TID insulin glargine [Lantus Solostar U-100 Insulin] 100 unit/mL (3 mL) insulin pen 25 unit SUBCUT QAM rosuvastatin 20 mg tablet 20 mg PO DAILY aspirin 81 mg Capsule 81 mg PO DAILY torsemide 20 mg tablet See Rx Instructions .ROUTE .COMPLEX Qty: 90 0RF Rx Instructions: Take 40 mg (2 tablets) in the morning and 20 mg ( 1 tablet) in the afternoon. Krames/Other Patient Handouts: High Blood Sugar (Hyperglycemia), Hypoglycemia (Low Blood Sugar), Managing Type 2 Diabetes, Diabetes: Meal Planning Admission Data Admit Date/Time: 02/06/24 14:24 Attending Provider: Chaka Gustafson Admit Provider: Chaka Gustafson Primary Care Provider: Bridgette Celis Other Providers: Chaka Gustafson; Jerrell Acosta; Paras Jordan; Rohith Keita; Elizabeth Bain; Yas Tamez; Mariaa Barrow; Cliff Gauthier; Prabhu Valladares; Linda Martinez; Vanesa Zpaien; Vic Amado; Shane Carranza; Stevie Villegas; Low David; Willam Ewing; Liv Hood; Lizabeth Horowitz; Adelita Velasco; Vanesa Carroll; Isaiah Boone; Phan Hannah; Sandra Elizabeth; Jenny Shin; Johanna Egan; Ines Cardenas; Jose Alvarado; Rachelle Mac; Carline Huerta; Rica Morgan; [facility]
== END 2024-02-19 17:47 | disposition expired | DRG 189 ==
LOC: ED 10:49 → SUATTDRO 14:24 → EDINP 14:24 → 2E 18:05 → EDINP 18:05 → 2E 21:47
DX: J96.21 Acute and chronic respiratory failure with hypoxia; A04.72 Enterocolitis due to Clostridium difficile, not specified as recurrent; Z99.81 Dependence on supplemental oxygen; E66.2 Morbid (severe) obesity with alveolar hypoventilation; I13.0 Hypertensive heart and chronic kidney disease with heart failure and stage 1 through stage 4 chronic kidney disease, or unspecified chronic kidney disease; J90 Pleural effusion, not elsewhere classified; R91.8 Other nonspecific abnormal finding of lung field; Z68.42 Body mass index [BMI] 45.0-49.9, adult; E11.22 Type 2 diabetes mellitus with diabetic chronic kidney disease; Z66 Do not resuscitate; E78.5 Hyperlipidemia, unspecified; Z79.82 Long term (current) use of aspirin; G47.33 Obstructive sleep apnea (adult) (pediatric); J18.9 Pneumonia, unspecified organism; I50.33 Acute on chronic diastolic (congestive) heart failure; Z86.73 Personal history of transient ischemic attack (TIA), and cerebral infarction without residual deficits; Z95.5 Presence of coronary angioplasty implant and graft; Z51.5 Encounter for palliative care; E03.9 Hypothyroidism, unspecified; F32.9 Major depressive disorder, single episode, unspecified; I27.20 Pulmonary hypertension, unspecified; N18.30 Chronic kidney disease, stage 3 unspecified; E87.1 Hypo-osmolality and hyponatremia; F41.9 Anxiety disorder, unspecified; I25.10 Atherosclerotic heart disease of native coronary artery without angina pectoris; N17.9 Acute kidney failure, unspecified